=== PATIENT | male | born 1945 | race Caucasian/White ===

== ENCOUNTER → 2016-10-01 | Outpatient (CLI) | payer OTHER ==
[~2016-10-01] MED LIST: ALL300 PO; ASPI-232 PO; CARV12.52 PO; CARV25TA2 PO; DIPH-437 PO; FRS/40 PO; FURO-85 PO; LSN20 PO; MAGN400T6 PO; MULTTAB58 PO; SPIR25TA PO; TAMS0.4C38 PO; TERA5CAP PO; WARF-246 PO
[2016-10-01 14:50] VITALS: BP 154/84; PULSE 79; TEMP 36.8; O2SAT 97
--- NOTE | 2016-10-01 17:00 | Radiation Oncology Follow-Up ---
Radiation Oncology Follow-Up Date of Visit Oct 01, 2016. (Amanda Jacobs PA-C) Reason For Visit One-month follow-up and cancer survivorship care plan (Amanda Jacobs PA-C) Radiation Completion Date 09/02/16 - IMRT (Amanda Jacobs PA-C) Diagnosis (1) Prostate cancer Onset Date: 03/15/2013 Location: right lobe of the prostate Stage: ll Permanent Comment: STAGING: Prostate, adenocarcinoma, meenu 3 + 4, PSA 17.38 , cT2b, group IIB Prostate gland size - 40 cc (by [facility], Dr. Joyner) initially followed with active surveillance PSAD - 0.434 TREATMENT: 1. 6 months of hormonal suppression 2. Status post completion of IMRT/IGRT 09/02/2016 received 8100 cGy Last Edited By: Amanda Jacobs on Sep 13, 2016 15:55 (Amanda Jacobs PA-C) History of Present Illness Mr. Grant is a 70-year-old gentleman who was previously diagnosed with prostate cancer in 2012. He underwent a transrectal ultrasound-guided biopsy on 03/15/2013. Pathology revealed prostate adenocarcinoma that was Meenu 3+4 with no evidence of perineural invasion. 2 cores were positive in total. At that point, the patient had a PSA of 4.40 and that decision was for active surveillance. The patient continue to have a repeat PSAs drawn which have steadily risen to 6.64 (02/08/2014), 7.05 (03/23/2014), 9.89 (03/28/2015) and then 17.38 (03/28/2016). Dr. Joyner discuss treatment options and advise against surgery due to the patient's severe cardiac history and recommended consideration of radiation therapy. We are now seeing the patient in consultation discussed the role of radiation therapy. Overall, the patient is doing relatively well. He does have mild urinary obstructive symptoms and his IPSS score is 10/35. He denies any hematuria. He takes no medications for urinary flow symptoms. His EPIC QoL score is 20/60. He states he is basically impotent and has poor sexual function. He does not take any medications to attempt to improve his sexual function. He denies any history of TURP or rectal hemorrhoids. He denies any blood per rectum. Bone scan was obtained for staging purposes. There was no metastatic disease. Patient's ultimate decision was to go forward with external beam treatment. This was completed 09/02/2016. He received 8100 cGy. (Amanda Jacobs PA-C) Interim History He's been doing well over the past month. He gave an AUA score of 8. At the end of treatment his AUA score was 10. He completed expanded prostate cancer index composite for clinical practice and gave a score of one of 12 and urinary incontinence symptoms. He was score of 3 of 12 in urinary irritation symptoms. He gave a score of 0 12 in bowel symptoms. He was score of 9 of 12 sexual symptoms. He gave a score of 2 of 12 and hormonal vitality symptoms. His total was 15 of 60. (Amanda Jacobs PA-C) Allergies Coded Allergies: Sulfa Drugs (Unverified Allergy, Mild, DIARRHEA, 10/28/14) CALLIE Inhibitors (Verified Adverse Reaction, Unknown, COUGH, 10/28/14) Home Medications Scheduled Allopurinol (Allopurinol), 450 MG PO HS Aspirin (Aspir-81), 81 MG PO DAILY Carvedilol (Coreg), 12.5 MG PO QAM Carvedilol (Coreg), 25 MG PO HS Diphenhydramine-Acetaminophen (Tylenol Pm), 2 TAB PO HS Furosemide (Lasix), 1 TAB PO QAM Furosemide (Lasix), 40 MG PO HS Lisinopril (Lisinopril), 20 MG PO HS Magnesium Oxide (Mag-Ox), 400 MG PO HS Multiple Vitamin (Multivitamin), 1 TAB PO DAILY Spironolactone (Aldactone), 12.5 MG PO Q AM Tamsulosin Hcl (Flomax), 0.4 MG PO DAILY Terazosin (Hytrin), 5 MG PO HS Warfarin Sodium (Warfarin Sodium), 5 MG PO DAILY Review of Systems Gastrointestinal: Symptoms: WNL Oral: Symptoms: No Problems Respiratory: Symptoms: WNL Urinary: Symptoms: WNL, Burning, Nocturia Comments: Slight burning "once in a while", Nocturia x 2, See AUA & EPIC Skin: Symptoms: No Problems Additional Notes: He completed a distress management report and answered "no" to all questions. (Amanda Jacobs PA-C) Physical Exam Vital Signs Date Time Temp Pulse Resp B/P Pulse Ox O2 Delivery O2 Flow Rate FiO2 4/4/17 14:50 36.8 79 16 154/84 97 Fatigue: None General Appearance: no apparent distress Eyes: normal inspection, EOMI ENT: normal ENT inspection, hearing grossly normal Neck: no adenopathy, thyroid normal Respiratory/Chest: lungs clear, no respiratory distress, no accessory muscle use Cardiovascular: regular rate, rhythm, no gallop, no murmur Abdomen: non tender, soft Extremities: no pedal edema Neurologic/Psychiatric: no motor/sensory deficits, alert, normal mood/affect Skin: warm/dry Lymphatic: no adenopathy (Amanda Jacobs PA-C) Assessment & Plan Plan: Patient is also seen today by Dr. Henao. He'll be seeing Dr. Joyner on 10/17/2016. He'll likely have a PSA prior to that visit. If he does not he may call our office and we will order a PSA. We asked him to return to our office in 6 months. Today we completed a cancer survivorship care plan. A copy of the document was given to the patient. He was given a survivorship booklet. He may call our office if he has any questions or concerns. (Amanda Jacobs PA-C) I agree with note created by Amanda Jacobs PA-C. I reviewed the patient's chart and information with her. I have examined and evaluated the patient. I reviewed relevant clinical information and answered the patient's and/or family' s questions. (Veeral. Henao MD) Total Time In Follow-Up I spent 20 minutes speaking to the patient and performing examination. I spent 20 minutes reviewing information, preparing the survivorship document, and completing this note. (Aamnda Jacobs PA-C) I spent 15 minutes examining and counseling the patient. (Veeral. Henao MD) Copy To Betsy Henao M.D.; Filomena Joyner MD; Robert Patrick M.D.
== END | disposition home or self-care (01) ==
LOC: C.ONC 14:45
PROVIDERS: ATTEND Physician Assistant Medical
DX: Z08 Encounter for follow-up examination after completed treatment for malignant neoplasm (principal); Z92.3 Personal history of irradiation; Z85.46 Personal history of malignant neoplasm of prostate

== ENCOUNTER 2020-06-05 17:10 | Inpatient (IN) ==
[2020-06-05] MEDS ORDERED: SODIUM CHLORIDE 0.9% 500 ML IV SCH (17:30)
--- NOTE | 2020-06-05 17:33 | Emergency Department Note ---
Impression & Plan Tachycardia, Defibrillator discharge, Elevated troponin, Supratherapeutic INR ED Provider Note NAME: MANOHAR ECHEVARRIA AGE: 74 SEX: M : 1945 ARRIVES VIA: Walk-In INFORMANT: [Patient] ED PROVIDER(S): [Wilman Painting MD] CHIEF COMPLAINT: Defibrillator firing HISTORY OF PRESENT ILLNESS: The patient is a 74-year-old male who presents to the ER with 3 defibrillator firings in the last hour. The patient states that lately, he has felt weak and washed out but, today, he did not feel any different than yesterday. He was suddenly shocked without warning. There was no shortness of breath, no chest pain or tightness. He has been in baseline health. Patient was then shocked 2 more times, once in our ED waiting room. The patient states that he does take Coumadin. He takes amiodarone and metoprolol. He admits that he missed all of his medications yesterday morning. He did take his evening doses yesterday and his morning doses today. REVIEW OF SYSTEMS: See HPI for pertinent positives and negatives. A total of ten systems were reviewed and were otherwise negative. PMHx/PSHx: See Below SOCIAL HISTORY: See Below. PHYSICAL EXAM: GENERAL: Patient is in mild distress. HEENT: No acute trauma, normocephalic atraumatic, mucous membranes moist, no nasal congestion, no scleral icterus. NECK: No stridor, no adenopathy, no meningismus, trachea is midline. LUNGS: Clear to auscultation bilaterally, no wheeze, no rhonchi, breath sounds equal. HEART: Tachycardic and irregular. No murmurs heard. ABDOMEN: Soft, nontender, bowel sounds positive, no hernias, no peritonitis. EXTREMITIES: No cyanosis or edema, full range of motion of all the joints without pain or difficulty, no signs for acute trauma. NEUROLOGIC: Oriented x 3, no acute motor or sensory deficits, no focal weakness. SKIN: No rash, no jaundice, no diaphoresis. DIFFERENTIAL DIAGNOSIS: Cardiac ischemia, aortic dissection, pulmonary embolism, pneumothorax, A. fib or a flutter, SVT, medication noncompliance, V. tach, pneumonia, pericarditis, myocarditis, esophageal rupture, GERD, cholecystitis, pancreatitis, musculoskeletal, as well as other pathologies. EMERGENCY DEPARTMENT COURSE/PROCEDURES: ECG: Indication was defibrillator firing and tachycardia. The ECG shows what appears to be a rapid A. fib with a wide QRS. Some pacer spikes are seen. The rate is 147. 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 I have no old EKGs for comparison. QTc was 488. Repeat ECG: Indication was tachycardia. The ECG shows ventricular pacing. A [place] PVC was noted. The rate was 115. No PACs. The QTc was elevated at 628. Compared to today's earlier ECG, the rate was less, the pacemaker was now functioning on a regular basis. Continuous Cardiac Monitoring: An order was placed for continuous cardiac monitoring. The monitor shows a rate of 95 with a ventricular pacemaker. Critical Care Note: I have personally spent 41 minutes of critical care time in the direct management of this patient. This includes bedside care, interp retation of diagnostic studies, and testing, discussion with consultants, patient, and family members, and other required patient management activities. This 41 minutes is in excess of all separately billable procedures. MEDICAL DECISION MAKING: There is no leukocytosis. The patient does have a mild anemia with a hemoglobin of 11.5. There is a normal platelet count. INR is elevated and above the therapeutic window at 5.4. There is some renal insufficiency but this appears baseline looking back at previous testing. There are a few subtle liver enzyme elevations. The patient appears to be in a euthyroid state. Initial ECG showed a tachycardia which appeared to be wide complex and likely A. fib/a flutter. Repeat ECG once he was medicated showed a ventricular pacemaker with a rate of around 115. Cardiac enzyme testing x1 was slightly elevated, this could indicate cardiac strain/injury. Coronavirus testing was negative. Chest x-ray did not show pneumonia or CHF. I was called emergently to the room. Patient was rapidly assessed. Patient was given a 500 cc saline bolus. He received a dose of IV amiodarone, 150 mg. He was given IV metoprolol 5 mg. The pacer/defibrillator was interrogated. There were in fact 3 defibrillator firings. The firings were a result of his very rapid heart rate. I did consult cardiology. They agreed with the amiodarone and Lopressor use. The patient's heart rate is now in the 90s. His pacemaker is functioning normally. I suspect he has missed some medications over the last few days, this has led to an uncontrolled heart rate and as a result, his defibrillator discharge. Patient is aware of the need for hospitalization. He understands the results of his testing. I did speak with case management, the on-call hospitalist was consulted. Past Med/Surg History Medical History Cardiomyopathy Pacemaker Social History Smoking Status: Never smoker Preferred Language: Burmese Feels Safe at Home: Yes Allergies Allergies Allergy/AdvReac Type Severity Reaction Status Date / Time Sulfa (Sulfonamide AdvReac Mild DIARRHEA Verified 06/05/20 21:02 Antibiotics) CALLIE Inhibitors AdvReac Unknown COUGH Verified 01/13/18 07:55 Home Meds Home Medications Medication Instructions Recorded Confirmed allopurinol 100 mg PO DAILY 06/05/20 06/05/20 amiodarone 200 mg PO BID 06/05/20 06/05/20 aspirin [Aspir-Low] 81 mg PO DAILY 06/05/20 06/05/20 atorvastatin 40 mg PO DAILY 06/05/20 06/05/20 fluticasone propionate 2 spray INTRANASAL DAILY 06/05/20 06/05/20 furosemide 40 mg PO BID 06/05/20 06/05/20 levothyroxine 25 mcg PO QAM 06/05/20 06/05/20 lisinopril 10 mg PO DAILY 06/05/20 06/05/20 magnesium oxide 400 mg PO Q2D 06/05/20 06/05/20 metoprolol succinate 50 mg PO BID 06/05/20 06/05/20 multivitamin [Multiple Vitamin] 1 tab PO DAILY 06/05/20 06/05/20 spironolactone 12.5 mg PO QAM 06/05/20 06/05/20 terazosin 5 mg PO HS 06/05/20 06/05/20 warfarin 0 mg PO DAILY 06/05/20 06/05/20 Results & Data (ED) Vital Signs Vital Signs - 24 hr 06/05/20 17:14 06/05/20 17:40 06/05/20 17:46 Temperature 37 C Temperature Source Temporal Artery Scan Pulse Rate 86 115 H Respiratory Rate 18 22 Respiratory Effort / Characteristics Non-Labored Respiratory Depth Normal Blood Pressure 108/78 161/96 H Blood Pressure Mean 88 110 Pulse Oximetry 96 96 97 Oxygen Delivery Method Room Air Room Air Sepsis Recent Fever Within 48 Hours No Sepsis New/Unexplained Change in Mental Status No Sepsis Action Taken by Nursing No Action Required 06/05/20 18:00 06/05/20 18:08 06/05/20 18:15 Temperature Temperature Source Pulse Rate 108 H 117 H 125 H Respiratory Rate 20 19 17 Respiratory Effort / Characteristics Respiratory Depth Blood Pressure 141/88 H 144/82 H 125/84 Blood Pressure Mean 105 87 92 Pulse Oximetry 96 96 95 Oxygen Delivery Method Sepsis Recent Fever Within 48 Hours Sepsis New/Unexplained Change in Mental Status Sepsis Action Taken by Nursing 06/05/20 18:26 06/05/20 18:42 Temperature Temperature Source Pulse Rate 114 H 96 H Respiratory Rate 18 Respiratory Effort / Characteristics Respiratory Depth Blood Pressure 125/84 129/86 Blood Pressure Mean 101 Pulse Oximetry 96 Oxygen Delivery Method Sepsis Recent Fever Within 48 Hours Sepsis New/Unexplained Change in Mental Status Sepsis Action Taken by [facility]dc Medications Current Medication List: was personally reviewed by me Laboratory Data Attestation: I reviewed the patient's lab results. Result diagrams: 06/05/20 17:31 06/05/20 17:31 Lab Results 06/05/20 06/05/20 06/05/20 Range/Units 17:31 17:31 17:31 WBC 8.78 (4.8-10.8) K/uL RBC 3.65 L (4.7-6.1) M/uL Hgb 11.5 L (14.0-18.0) g/dL Hct 34.6 L (42-52) % MCV 94.8 (80-100) fL MCH 31.5 (25-34) pg MCHC 33.2 (32-36) g/dL RDW Std Deviation 48.4 H (36.4-46.3) fL RDW Coeff of Santosh 14.0 (11.5-14.5) % Plt Count 155 (130-400) K/uL MPV 11.8 H (7.4-10.4) fL Immature Gran % (Auto) 0.3 % Neut % (Auto) 44.8 % Lymph % (Auto) 46.6 % Brown % (Auto) 7.2 % Eos % (Auto) 0.0 % Baso % (Auto) 1.1 % Neut # (Auto) 3.93 (1.4-6.5) K/uL Lymph # (Auto) 4.09 H (1.2-3.4) K/uL Brown # (Auto) 0.63 H (0.11-0.59) K/uL Eos # (Auto) 0.00 (0-0.5) K/uL Baso # (Auto) 0.10 (0-0.2) K/uL Immature Gran # (Auto) 0.03 H (0.00-0.02) K/uL PT 51.7 H (9.0-12.0) Seconds INR 5.4 H (0.9-1.1) APTT 45.7 H* (21.0-31.0) Seconds PTT Ratio 1.6 Sodium 136 (136-145) mmol/L Potassium 3.5 (3.5-5.1) mmol/L Chloride 105 (98-107) mmol/L Carbon Dioxide 24 (21-32) mmol/L Anion Gap 7.0 (3-11) BUN 37 H (7-18) mg/dl Creatinine 2.55 H (0.6-1.4) mg/dl Est Cr Clr Drug Dosing Not Reportable Est GFR ( Amer) 27.4 Est GFR (Non-Af Amer) 23.6 BUN/Creatinine Ratio 14.5 (10-20) Glucose 133 H (70-99) mg/dl Calcium 8.3 L (8.5-10.1) mg/dl Magnesium 2.7 H (1.8-2.4) mg/dl Total Bilirubin 0.5 (0.2-1) mg/dl AST 57 H (15-37) U/L ALT 91 H (12-78) U/L Alkaline Phosphatase 90 (45-117) U/L Troponin I 0.061 H* (0-0.045) ng/ml Total Protein 7.1 (6.4-8.2) gm/dl Albumin 3.4 (3.4-5.0) gm/dl Globulin 3.7 (2.5-4.0) gm/dl Albumin/Globulin Ratio 0.9 (0.9-2) TSH 2.980 (0.300-4.500) uIu/ml SARS-CoV-2 Ag (Rapid) (Negative) 06/05/20 Range/Units 19:20 WBC (4.8-10.8) K/uL RBC (4.7-6.1) M/uL Hgb (14.0-18.0) g/dL Hct (42-52) % MCV (80-100) fL MCH (25-34) pg MCHC (32-36) g/dL RDW Std Deviation (36.4-46.3) fL RDW Coeff of Santosh (11.5-14.5) % Plt Count (130-400) K/uL MPV (7.4-10.4) fL Immature Gran % (Auto) % Neut % (Auto) % Lymph % (Auto) % Brown % (Auto) % Eos % (Auto) % Baso % (Auto) % Neut # (Auto) (1.4-6.5) K/uL Lymph # (Auto) (1.2-3.4) K/uL Brown # (Auto) (0.11-0.59) K/uL Eos # (Auto) (0-0.5) K/uL Baso # (Auto) (0-0.2) K/uL Immature Gran # (Auto) (0.00-0.02) K/uL PT (9.0-12.0) Seconds INR (0.9-1.1) APTT (21.0-31.0) Seconds PTT Ratio Sodium (136-145) mmol/L Potassium (3.5-5.1) mmol/L Chloride (98-107) mmol/L Carbon Dioxide (21-32) mmol/L Anion Gap (3-11) BUN (7-18) mg/dl Creatinine (0.6-1.4) mg/dl Est Cr Clr Drug Dosing Est GFR ( Amer) Est GFR (Non-Af Amer) BUN/Creatinine Ratio (10-20) Glucose (70-99) mg/dl Calcium (8.5-10.1) mg/dl Magnesium (1.8-2.4) mg/dl Total Bilirubin (0.2-1) mg/dl AST (15-37) U/L ALT (12-78) U/L Alkaline Phosphatase (45-117) U/L Troponin I (0-0.045) ng/ml Total Protein (6.4-8.2) gm/dl Albumin (3.4-5.0) gm/dl Globulin (2.5-4.0) gm/dl Albumin/Globulin Ratio (0.9-2) TSH (0.300-4.500) uIu/ml SARS-CoV-2 Ag (Rapid) Negative (Negative) Administered Medications Discontinued Medications Sodium Chloride (Nss) 500 mls @ 999 mls/hr IV .Q31M KIAN Stop: 06/05/20 18:00 Last Infusion: 06/05/20 18:04 Dose: 0 mls/hr Documented by: [id number] Admin: 06/05/20 17:33 Dose: 999 mls/hr Documented by: [id number] Amiodarone HCl/Dextrose (Nexterone / D5w) 150 mg in 100 mls @ 600 mls/hr IV NOW STA Stop: 06/05/20 17:46 Last Infusion: 06/05/20 17:54 Dose: 0 mls/hr Documented by: [id number] Cosigned by: [id number] Admin: 06/05/20 17:44 Dose: 600 mls/hr Documented by: [id number] Cosigned by: [id number] Calcium Gluconate () 1,000 mg in 60 mls @ 240 mls/hr IV ONE STA Stop: 06/05/20 19:48 Last Infusion: 06/05/20 20:48 Dose: 0 mls/hr Documented by: [id number] Admin: 06/05/20 20:32 Dose: 240 mls/hr Documented by: [id number] Metoprolol Succinate (Metoprolol Succ 50mg Ext Rel Tab) 50 mg PO NOW STA Stop: 06/05/20 20:23 Last Admin: 06/05/20 20:59 Dose: 50 mg Documented by: [id number] Metoprolol Tartrate (Metoprolol Tartrate 1 Mg/Ml Vial) 5 mg IV NOW STA Stop: 06/05/20 18:21 Last Admin: 06/05/20 18:26 Dose: 5 mg Documented by: [id number] Potassium Chloride (Potassium Chloride 10 Meq Tabcr) 50 meq PO NOW STA Stop: 06/05/20 19:31 Last Admin: 06/05/20 20:32 Dose: 50 meq Documented by: [id number] Imaging Data Radiologist's Impression: XR chest 1V portable HISTORY: weakness COMPARISON: None. FINDINGS: The lungs are clear. The cardiac silhouette is top normal in size. No pleural effusions. No pneumothorax. Left-sided pacemaker/defibrillator is noted. IMPRESSION: No acute process. Discharge Plan Visit Data Chief Complaint: Cardiac Assessment Stated Complaint: PACE MAKER SHOCKED HIM ED Provider: Wilman Painting Discharge Problem: Tachycardia, Defibrillator discharge, Elevated troponin, Supratherapeutic INR Patient Disposition: Admitted As Inpatient Condition: Good Forms Stand Alone Forms: [facility], Virtual Emergency Department, Important Visit Information Prescriptions Prescriptions: No Action warfarin 5 mg tablet 0 mg PO DAILY RF: 0 levothyroxine 25 mcg tablet 25 mcg PO QAM RF: 0 amiodarone 200 mg tablet 200 mg PO BID RF: 0 terazosin 5 mg capsule 5 mg PO HS RF: 0 furosemide 40 mg tablet 40 mg PO BID RF: 0 lisinopril 10 mg tablet 10 mg PO DAILY RF: 0 magnesium oxide 400 mg (241.3 mg magnesium) tablet 400 mg PO Q2D RF: 0 allopurinol 100 mg tablet 100 mg PO DAILY RF: 0 spironolactone 25 mg tablet 12.5 mg PO QAM RF: 0 aspirin [Aspir-Low] 81 mg Tablet,Delayed Release (Dr/Ec) 81 mg PO DAILY RF: 0 multivitamin [Multiple Vitamin] Tablet 1 tab PO DAILY RF: 0 atorvastatin 40 mg tablet 40 mg PO DAILY RF: 0 metoprolol succinate 50 mg tablet extended release 24 hr 50 mg PO BID RF: 0 fluticasone propionate 50 mcg/actuation [place],Suspension 2 spray INTRANASAL DAILY RF: 0 Referrals Referrals: Ioana Son DO [Primary Care Provider] -
[2020-06-05] MEDS ORDERED: 0.2 MICRON FILTER SET 1 EA IV ONE (17:37)
[2020-06-05] MEDS ORDERED: AMIODARONE / D5W 150 MG/100 ML BAG IV STA (17:37)
--- NOTE | 2020-06-05 17:57 | XRay Report ---
XR chest 1V portable HISTORY: weakness COMPARISON: None. FINDINGS: The lungs are clear. The cardiac silhouette is top normal in size. No pleural effusions. No pneumothorax. Left-sided pacemaker/defibrillator is noted. IMPRESSION: No acute process. ACT 112: Negative or not required by law. Electronically signed by: Ignacio Alonzo M.D. 06/05/2020 5:55 PM
[2020-06-05] MEDS ORDERED: METOPROLOL TARTRATE 1 MG/ML VIAL IV STA (18:20)
[2020-06-05 18:26] LABS: Basophils % (auto) 1.1 %; Hematocrit (blood only) 34.6 % (42-52); Hemoglobin 11.5 g/dL (14.0-18.0); Immature Granulocytes # (auto) 0.03 K/uL (0.00-0.02); Immature Granulocytes % (auto) 0.3 %; Lymphocytes # (auto) 4.09 K/uL (1.2-3.4); Lymphocytes % (auto) 46.6 %; Mean Corpuscular Hemoglobin 31.5 pg (25-34); Mean Corpuscular Hgb Conc 33.2 g/dL (32-36); Mean Corpuscular Volume 94.8 fL (80-100); Mean Platelet Volume 11.8 fL (7.4-10.4); Monocytes # (auto) 0.63 K/uL (0.11-0.59); Monocytes % (auto) 7.2 %; Neutrophils # (auto) 3.93 K/uL (1.4-6.5); Neutrophils % (auto) 44.8 %; Platelet Count 155 K/uL (130-400); RDW Standard Deviation 48.4 fL (36.4-46.3); Red Blood Count 3.65 M/uL (4.7-6.1); White Blood Count 8.78 K/uL (4.8-10.8)
[2020-06-05 18:47] LABS: INR 5.4 (0.9-1.1); Partial Thromboplastin Ratio 1.6; Prothrombin Time 51.7 Seconds (9.0-12.0)
[2020-06-05 18:50] LABS: Alanine Aminotransferase 91 U/L (12-78); Albumin Level 3.4 gm/dl (3.4-5.0); Aspartate Aminotransferase 57 U/L (15-37); BUN Creatinine Ratio 14.5 (10-20); Blood Urea Nitrogen 37 mg/dl (7-18); Calcium 8.3 mg/dl (8.5-10.1); Carbon Dioxide 24 mmol/L (21-32); Chloride 105 mmol/L (98-107); Est GFR (African American) 27.4; Est GFR (Non-African American) 23.6; Glucose 133 mg/dl (70-99); Magnesium 2.7 mg/dl (1.8-2.4); Potassium 3.5 mmol/L (3.5-5.1); Sodium 136 mmol/L (136-145)
[2020-06-05 18:59] LABS: Partial Thromboplastin Time 45.7 Seconds (21.0-31.0)
[2020-06-05 19:19] LABS: Albumin Globulin Ratio 0.9 (0.9-2); Alkaline Phosphatase 90 U/L (45-117); Bilirubin,Total 0.5 mg/dl (0.2-1); Globulin 3.7 gm/dl (2.5-4.0); Total Protein 7.1 gm/dl (6.4-8.2); Troponin I 0.061 ng/ml (0-0.045)
[2020-06-05] MEDS ORDERED: POTASSIUM CHLORIDE 10 MEQ TABCR PO STA (19:30)
[2020-06-05] MEDS ORDERED: CALCIUM GLUCONATE 10% 1,000 MG in SODIUM CHLORIDE 0.9% 50 ML IV STA (19:30)
[2020-06-05] MEDS ORDERED: CALCIUM GLUCONATE 1,000 MG/60 ML BAG IV STA (19:34)
[2020-06-05] MEDS ORDERED: METOPROLOL SUCC 50MG EXT REL TAB PO STA (20:22)
--- NOTE | 2020-06-05 21:05 | History & Physical Report ---
Date of Service June 05, 2020 Assessment & Plan (1) Defibrillator discharge: Secondary to tachyarrhythmia Multifactorial : missed cardiac medication doses ARF on CKD secondary to clinical dehydration secondary to viral illness chronic systolic heart failure secondary to non-ischemic cardiomyopathy (EF 45 to 50%, TTE 2019), patient on the dry side hx nonocclusive CAD hx PAF on Coumadin, patient NSR, INR supratherapeutic history of VT chronic anemia, hemoglobin at baseline prostate cancer status post radiation/hormonal therapy prediabetes (hemoglobin A1c of 6.01 December 2019) PCU Follow ICD interrogation Facilitate cardiac medications Monitor creatinine response to IVF, hold home diuretics for now until patient euvolemic Cardiology consult Re: ICD firing (ER provider already in touch with Dr. Zambrano.) DVT prophylaxis. Coumadin INR goal between 2 and 3 Full code Text document was generated using [employer] voice recognition software. It may contain grammatical or spelling errors. Kindly contact undersigned for clarification of any documentation item in question. History of Present Illness Chief Complaint: ICD shock Primary Care Provider: Ioana Son DO History obtained from patient and records. Medical history significant for chronic systolic heart failure secondary to non- ischemic cardiomyopathy (EF 45 to 50%, TTE 2019), nonocclusive CAD, moderate mitral regurgitation, history PAF on Coumadin, history of VT, CRI (baseline creatinine 2.2), chronic anemia (baseline hemoglobin 11), prostate cancer status post radiation/hormonal therapy, prediabetes. Last confinement 2009 under Cardiology service for dilated cardiomyopathy status post cardiac catheterization. Patient not feeling well the last few days. Feeling weak and washed out. No known recent COVID-19 contacts. No chest pain, no S OB, no cough symptoms. Appetite fair. Admits to missing some of his pills. Achy posterior headache symptoms. Patient was on the commode today when he fell his ICD fire. Patient brought to the ER for evaluation. IV amiodarone administered at the ER for tachyarrhythmia. Medical History as above Surgical History : ICD placement, prostate biopsy, tonsillectomy/adenoidectomy Family History : Heart disease, brain cancer, Personal/Social history : Non-smoker, no EtOH intake, retired from [employer] work Allergies Allergy/AdvReac Type Severity Reaction Status Date / Time Sulfa (Sulfonamide AdvReac Mild DIARRHEA Verified 06/05/20 21:02 Antibiotics) CALLIE Inhibitors AdvReac Unknown COUGH Verified 01/13/18 07:55 Home Medications Medication Instructions Recorded Confirmed Type allopurinol 100 mg PO DAILY 06/05/20 06/05/20 History amiodarone 200 mg PO BID 06/05/20 06/05/20 History aspirin [Aspir-Low] 81 mg PO DAILY 06/05/20 06/05/20 History atorvastatin 40 mg PO DAILY 06/05/20 06/05/20 History fluticasone propionate 2 spray INTRANASAL DAILY 06/05/20 06/05/20 History furosemide 40 mg PO BID 06/05/20 06/05/20 History levothyroxine 25 mcg PO QAM 06/05/20 06/05/20 History lisinopril 10 mg PO DAILY 06/05/20 06/05/20 History magnesium oxide 400 mg PO Q2D 06/05/20 06/05/20 History metoprolol succinate 50 mg PO BID 06/05/20 06/05/20 History multivitamin [Multiple Vitamin] 1 tab PO DAILY 06/05/20 06/05/20 History spironolactone 12.5 mg PO QAM 06/05/20 06/05/20 History terazosin 5 mg PO HS 06/05/20 06/05/20 History warfarin 0 mg PO DAILY 06/05/20 06/05/20 History Past Med/Surg History Medical History Cardiomyopathy Pacemaker Social History Smoking Status: Never smoker Second Hand Exposure: No; Do You Dip or Chew Tobacco: No; Tobacco Cessation Education Requested by Patient: No Hx Alcohol Use: Yes Alcohol type: beer Preferred Language: Slovenian Communication Ability: Effective Broadcast Maintenance Engineer Required: No Beliefs That Will Affect Care: None Current Living Situation: Alone Other Information That Helps Us Care for You: No Feels Safe at Home: Yes Safety Concerns: Feels Safe At This Time Assistive Devices: None Review of Systems Review of Systems: As per HPI, all 10 systems reviewed, all other ROS negative Physical Exam Physical Exam: GENERAL: Comfortable, morbidly obese, pleasant, no respiratory distress SKIN: Pallor , warm HEENT: Alopecia, bespectacled, Mellen palpebral conjunctivae, no ptosis, dry buccal mucosa NECK : Supple, short neck, no tenderness CHEST : CTA, no tenderness HEART : RRR, systolic murmur best heard on left sternal border ABDOMEN: Some distention, nontender EXTREMITIES : Minimal LE swelling, no LE tenderness, no other conspicuous deformities noted NEUROLOGIC : Coherent, no facial asymmetry, no other gross focality Results & Data Results & Data ([facility]) Vital Signs (Past 12 Hours) Vital Signs Temp Pulse Resp BP Pulse Ox 06/05/20 18:42 96 H 18 129/86 96 06/05/20 18:26 114 H 125/84 06/05/20 18:15 125 H 17 125/84 95 06/05/20 18:08 117 H 19 144/82 H 96 06/05/20 18:00 108 H 20 141/88 H 96 06/05/20 17:46 115 H 22 161/96 H 97 06/05/20 17:40 96 06/05/20 17:14 37 C 86 18 108/78 96 Laboratory Results Laboratory Results WBC 8.78 K/uL (4.8-10.8) 06/05/20 17:31 RBC 3.65 M/uL (4.7-6.1) L 06/05/20 17:31 Hgb 11.5 g/dL (14.0-18.0) L 06/05/20 17:31 Hct 34.6 % (42-52) L 06/05/20 17:31 MCV 94.8 fL (80-100) 06/05/20 17:31 MCH 31.5 pg (25-34) 06/05/20 17:31 MCHC 33.2 g/dL (32-36) 06/05/20 17:31 RDW Std Deviation 48.4 fL (36.4-46.3) H 06/05/20 17:31 RDW Coeff of Santosh 14.0 % (11.5-14.5) 06/05/20 17:31 Plt Count 155 K/uL (130-400) 06/05/20 17:31 MPV 11.8 fL (7.4-10.4) H 06/05/20 17:31 Immature Gran % (Auto) 0.3 % 06/05/20 17:31 Neut % (Auto) 44.8 % 06/05/20 17:31 Lymph % (Auto) 46.6 % 06/05/20 17:31 [place] % (Auto) 7.2 % 06/05/20 17:31 Eos % (Auto) 0.0 % 06/05/20 17:31 Baso % (Auto) 1.1 % 06/05/20 17:31 Neut # (Auto) 3.93 K/uL (1.4-6.5) 06/05/20 17:31 Lymph # (Auto) 4.09 K/uL (1.2-3.4) H 06/05/20 17:31 [place] # (Auto) 0.63 K/uL (0.11-0.59) H 06/05/20 17:31 Eos # (Auto) 0.00 K/uL (0-0.5) 06/05/20 17:31 Baso # (Auto) 0.10 K/uL (0-0.2) 06/05/20 17: Immature Gran # (Auto) 0.03 K/uL (0.00-0.02) H 06/05/20 17:31 PT 51.7 Seconds (9.0-12.0) H 06/05/20 17:31 INR 5.4 (0.9-1.1) H 06/05/20 17:31 APTT 45.7 Seconds (21.0-31.0) H* 06/05/20 17:31 PTT Ratio 1.6 06/05/20 17:31 Sodium 136 mmol/L (136-145) 06/05/20 17:31 Potassium 3.5 mmol/L (3.5-5.1) 06/05/20 17:31 Chloride 105 mmol/L (98-107) 06/05/20 17:31 Carbon Dioxide 24 mmol/L (21-32) 06/05/20 17:31 Anion Gap 7.0 (3-11) 06/05/20 17:31 BUN 37 mg/dl (7-18) H 06/05/20 17:31 Creatinine 2.55 mg/dl (0.6-1.4) H 06/05/20 17:31 Est Cr Clr Drug Dosing Not Reportable 06/05/20 17:31 Est GFR ( Amer) 27.4 06/05/20 17:31 Est GFR (Non-Af Amer) 23.6 06/05/20 17:31 BUN/Creatinine Ratio 14.5 (10-20) 06/05/20 17:31 Glucose 133 mg/dl (70-99) H 06/05/20 17:31 Calcium 8.3 mg/dl (8.5-10.1) L 06/05/20 17:31 Magnesium 2.7 mg/dl (1.8-2.4) H 06/05/20 17:31 Total Bilirubin 0.5 mg/dl (0.2-1) 06/05/20 17:31 AST 57 U/L (15-37) H 06/05/20 17:31 ALT 91 U/L (12-78) H 06/05/20 17:31 Alkaline Phosphatase 90 U/L (45-117) 06/05/20 17:31 Troponin I 0.061 ng/ml (0-0.045) H* 06/05/20 17:31 Total Protein 7.1 gm/dl (6.4-8.2) 06/05/20 17:31 Albumin 3.4 gm/dl (3.4-5.0) 06/05/20 17:31 Globulin 3.7 gm/dl (2.5-4.0) 06/05/20 17:31 Albumin/Globulin Ratio 0.9 (0.9-2) 06/05/20 17:31 TSH 2.980 uIu/ml (0.300-4.500) 06/05/20 17:31 SARS-CoV-2 Ag (Rapid) Negative (Negative) 06/05/20 19:20 Diagnostic Findings Chest x-ray : No acute process CT head: No acute intracranial abnormality. Atrophy and microvascular ischemic changes. EKG as per my interpretation : Rate 115, paced rhythm
--- NOTE | 2020-06-05 21:08 | CT Scan Report ---
HEAD CT NONCONTRAST CT DOSE: 537.48 mGy.cm HISTORY: Headache. TECHNIQUE: Multiaxial CT images of the head were performed without the use of intravenous contrast. A utomated exposure control was utilized for this study. A dose lowering technique was utilized adheri ng to the principles of ALARA. Comparison: None. Findings: The paranasal sinuses and mastoid air cells are clear. The calvarium and skull base are int act. There is no mass, hematoma, midline shift, acute infarct. White matter hypodensity is nonspecifi c but suggestive of microvascular ischemic change. The ventricles and sulci demonstrate mild age-rela anup involutional changes. A 1.5 cm subcutaneous cystic focus within the midline of the posterior neck . This is nonspecific but favors a sebaceous cyst. Impression: No acute intracranial abnormality. Atrophy and microvascular ischemic changes. ACT 112: Negative or not required by law. Electronically signed by: Ignacio Alonzo M.D. 06/05/2020 9:06 PM
[2020-06-05] MEDS ORDERED: traMADol HCL 50 MG TABLET PO PRN (22:33)
[2020-06-05] MEDS ORDERED: ACETAMINOPHEN 325 MG TAB PO PRN (22:33)
[2020-06-05] MEDS ORDERED: PROMETHAZINE HCL 12.5 MG in SODIUM CHLORIDE 0.9% 50 ML IV PRN (22:33)
[2020-06-05] MEDS ORDERED: NITROGLYCERIN SL 0.4 MG/TAB TAB SL PRN (22:33)
[2020-06-05] MEDS ORDERED: POTASSIUM CHLORIDE 40 MEQ in SODIUM CHLORIDE 0.9% 1000ML 1,000 ML IV ONE (22:45)
[2020-06-05] MEDS: TERAZOSIN HCL 5 MG CAP PO SCH (22:54)
[2020-06-05] MEDS: AMIODARONE 200 MG TAB PO SCH (22:54)
[2020-06-06 04:29] LABS: Appearance Urine Clear (Clear); Bacteria Urine Automated Negative (Negative); Bilirubin Urine Negative (Negative); Blood Urine Negative (Negative); Color Urine Dark Yellow; Glucose Urine UA Negative (Negative); Ketones Urine Trace (Negative); Leukocyte Esterase Urine Negative (Negative); Nitrite Urine Negative (Negative); Protein Urine Trace (Negative); RBC Urine Automated 0-4 /hpf (0-4); Specific Gravity Urine 1.025 (1.000-1.030); Urobilinogen Urine Negative (Negative)
[2020-06-06 05:39] LABS: Hematocrit (blood only) 30.1 % (42-52); Hemoglobin 10.1 g/dL (14.0-18.0); Mean Corpuscular Hemoglobin 31.6 pg (25-34); Mean Corpuscular Hgb Conc 33.6 g/dL (32-36); Mean Corpuscular Volume 94.1 fL (80-100); Mean Platelet Volume 11.1 fL (7.4-10.4); Platelet Count 136 K/uL (130-400); RDW Coefficient of Variation 14.1 % (11.5-14.5); RDW Standard Deviation 48.7 fL (36.4-46.3); White Blood Count 5.74 K/uL (4.8-10.8)
[2020-06-06 06:04] LABS: INR 3.6 (0.9-1.1)
[2020-06-06 06:22] LABS: Creatinine Clr Calc Pharmacy 40.4 ml/min; Est GFR (African American) 35.9; Magnesium 2.5 mg/dl (1.8-2.4); Potassium 4.4 mmol/L (3.5-5.1)
[2020-06-06] MEDS: LEVOTHYROXINE SODIUM 25 MCG TABLET PO SCH (06:36)
[2020-06-06 06:47] LABS: ALC (manual) 3.08 K/uL (1.2-3.4); ANC (manual) 2.46 K/uL (1.4-6.5); Basophils # (manual) 0.05 K/uL (0-0.2); Basophils % (manual) 0.9 %; Eosinophils # (manual) 0.05 K/uL (0-0.5); Eosinophils % (manual) 0.9 %; Lymphocytes # (manual) 1.28 K/uL (1.2-3.4); Lymphocytes % (manual) 22.3 %; Monocytes % (manual) 1.8 %; Neutrophils # (manual) 2.46 K/uL (1.4-6.5); Neutrophils % (manual) 42.8 %; Reactive Lymphocytes % (manual) 31.3 %
[2020-06-06] MEDS: AMIODARONE 200 MG TAB PO SCH ×2 (08:55→20:39)
[2020-06-06] MEDS: FLUTICASONE PROPIONATE NA SPR 16 GM BTL SCH (08:55)
[2020-06-06] MEDS: allopurinoL 100 MG TAB PO SCH (08:56)
[2020-06-06] MEDS: METOPROLOL SUCC 50MG EXT REL TAB PO SCH ×2 (08:56→20:39)
[2020-06-06] MEDS: ASPIRIN 81 MG ECTAB PO SCH (08:56)
[2020-06-06] MEDS: ATORVASTATIN 40 MG TAB PO SCH (08:56)
[2020-06-06] MEDS: MULTIVITAMIN TAB PO SCH (08:56)
--- NOTE | 2020-06-06 10:25 | Cardiology Consultation ---
Date of Consultation June 06, 2020 Assessment & Plan (1) Ventricular tachycardia: (2) Hypokalemia: (3) Noncompliance w/medication treatment due to intermit use of medication: (4) Supratherapeutic INR: (5) PAF (paroxysmal atrial fibrillation): (6) NICM (nonischemic cardiomyopathy): Device interrogation revealed 98% biventricular pacing, 3 antitachycardic therapy was delivered on the seventh. 2 were in the ventricular tachycardia range and one in the ventricular fibrillation range. Event likely secondary to medication noncompliance the need for which was stressed to the patient today. Longstanding history of nonischemic cardiomyopathy. Do not believe ischemic evaluation is warranted at this time given his otherwise lack of symptoms and recent nonischemic Lexiscan nuclear stress test from January 2020. We will repeat an echocardiogram to evaluate for any structural changes or further drop of his LV systolic function which will help tailor medical regimen. Has been transitioned back to oral outpatient medical regimen and will be continued. We will attempt to increase beta-maxwell dose as his blood pressure tolerates. Continue to monitor on telemetry overnight. Follow and replete electrolytes as necessary. Will require close follow-up as an outpatient with the [facility] clinic and in the cardiology clinic. History of Present Illness Reason for Consultation: ICD firing x3 Requesting Physician: Dr. Vasques Attending Physician: Smooth Ragsdale MD History of Present Illness Mr. Avalos is a very pleasant 74-year-old gentleman who normally follows with Lauro Thompson of our cardiology practice. He presented to [facility] emergency department on 06/05/2020 with complaints of ICD firing. Patient states he has been having some difficulties with nausea lately and admits that he has been having issues keeping up with his medications. He is not sure if he has been taking his amiodarone or metoprolol for about a week now. Yesterday he was sitting on the commode when he suddenly received a shock from his ICD. He denied any complaints prior to the shock or after. Specifically denied any chest pain, shortness of breath, palpitations, lightheadedness, dizziness or syncope. He called his sister to notify her of the event and received a second shot. Was brought into the emergency department and received a third shock while being triaged. Upon arrival he was found to be ventricularly paced and slightly hypokalemic. He was bolused with IV amiodarone overnight without any further ventricular events. Cardiac Problems: NICM s/p BiV ICD 11/04/2010 with generator change 2015 VT associated with syncope broke before therapy 12/22/2019 started on amiodarone pAF on metoprolol and coumadin [id number] (HTN, CHF, age) Chronic heart failure with reduced EF, NYHA Class III HLD Hypothyroidism Allergies Allergy/AdvReac Type Severity Reaction Status Date / Time Sulfa (Sulfonamide AdvReac Mild DIARRHEA Verified 06/05/20 21:02 Antibiotics) CALLIE Inhibitors AdvReac Unknown COUGH Verified 01/13/18 07:55 Home Medications Medication Instructions Recorded Confirmed Type allopurinol 100 mg PO DAILY 06/05/20 06/05/20 History amiodarone 200 mg PO BID 06/05/20 06/05/20 History aspirin [Aspir-Low] 81 mg PO DAILY 06/05/20 06/05/20 History atorvastatin 40 mg PO DAILY 06/05/20 06/05/20 History fluticasone propionate 2 spray INTRANASAL DAILY 06/05/20 06/05/20 History furosemide 40 mg PO BID 06/05/20 06/05/20 History levothyroxine 25 mcg PO QAM 06/05/20 06/05/20 History lisinopril 10 mg PO DAILY 06/05/20 06/05/20 History magnesium oxide 400 mg PO Q2D 06/05/20 06/05/20 History metoprolol succinate 50 mg PO BID 06/05/20 06/05/20 History multivitamin [Multiple Vitamin] 1 tab PO DAILY 06/05/20 06/05/20 History spironolactone 12.5 mg PO QAM 06/05/20 06/05/20 History terazosin 5 mg PO HS 06/05/20 06/05/20 History warfarin 0 mg PO DAILY 06/05/20 06/05/20 History Patient History Medical History Cardiomyopathy Pacemaker Social History Smoking Status: Never smoker Second Hand Exposure: No; Do You Dip or Chew Tobacco: No; Tobacco Cessation Education Requested by Patient: No Hx Alcohol Use: Yes Alcohol type: beer Preferred Language: Jordanian Communication Ability: Effective Winder Tender Required: No Beliefs That Will Affect Care: None Current Living Situation: Alone Other Information That Helps Us Care for You: No Feels Safe at Home: Yes Safety Concerns: Feels Safe At This Time Assistive Devices: None Review of Systems Review of Systems: All systems reviewed & are unremarkable except as noted in HPI & below Physical Exam Physical Exam: General: Awake, alert and oriented x 3. No acute distress. HEENT: Normocephalic, atraumatic. Pupils equal, round and reactive to light and accommodation. Extraocular muscles are intact. Anicteric sclera. Moist mucous membranes. Neck: No JVD. No bruit. Cardiovascular: Regular. Positive S-4. Normal S-1 and S-2. No S-3. 3/6 holosystolic ejection murmur, left sternal border, mid-clavicular line with radiation to the axilla. No rubs. Pulmonary: Clear to auscultation bilaterally. No rales, rhonchi, or wheezing. Abdomen: Bowel sounds x 4, soft. No rebound, guarding or tenderness. No organomegaly. Extremities: No clubbing, cyanosis or edema. +2 pedal pulses bilaterally. Skin: Warm and dry. Results & Data ([facility]) Vital Signs (Past 12 Hours) Vital Signs Temp Pulse Pulse Resp BP BP Pulse Ox 06/06/20 07:50 37.8 C H 61 16 101/50 L 94 06/06/20 07:15 61 06/06/20 04:02 37.6 C H 64 19 97/54 L 96 06/05/20 23:00 36.8 C 92 H 20 127/90 94 06/05/20 22:30 92 H Laboratory Results Laboratory Results - last 24 hr 06/05/20 06/05/20 06/05/20 17:31 17:31 17:31 WBC 8.78 RBC 3.65 L Hgb 11.5 L Hct 34.6 L MCV 94.8 MCH 31.5 MCHC 33.2 RDW Std Deviation 48.4 H RDW Coeff of Santosh 14.0 Plt Count 155 MPV 11.8 H Immature Gran % (Auto) 0.3 Neut % (Auto) 44.8 Lymph % (Auto) 46.6 [place] % (Auto) 7.2 Eos % (Auto) 0.0 Baso % (Auto) 1.1 Neut # (Auto) 3.93 Lymph # (Auto) 4.09 H [place] # (Auto) 0.63 H Eos # (Auto) 0.00 Baso # (Auto) 0.10 Immature Gran # (Auto) 0.03 H Neutrophils % (Manual) Lymphocytes % (Manual) Reactive Lymphs % (Man) Monocytes % (Manual) Eosinophils % (Manual) Basophils % (Manual) Neutrophils # (Manual) Total Absolute Neuts Lymphocytes # (Manual) Reactive Lymphs # Total Abs Lymphocytes Monocytes # (Manual) Eosinophils # (Manual) Basophils # (Manual) PT 51.7 H INR 5.4 H APTT 45.7 H* PTT Ratio 1.6 Sodium 136 Potassium 3.5 Chloride 105 Carbon Dioxide 24 Anion Gap 7.0 BUN 37 H Creatinine 2.55 H Est Cr Clr Drug Dosing Not Reportable Est GFR ( Amer) 27.4 Est GFR (Non-Af Amer) 23.6 BUN/Creatinine Ratio 14.5 Glucose 133 H Calcium 8.3 L Magnesium 2.7 H Total Bilirubin 0.5 AST 57 H ALT 91 H Alkaline Phosphatase 90 Troponin I 0.061 H* Total Protein 7.1 Albumin 3.4 Globulin 3.7 Albumin/Globulin Ratio 0.9 TSH 2.980 Urine Color Urine Appearance Urine pH Ur Specific [place] Urine Protein Urine Glucose (UA) Urine Ketones Urine Blood Urine Nitrite Urine Bilirubin Urine Urobilinogen Ur Leukocyte Esterase Urine WBC (Auto) Urine RBC (Auto) U Hyaline Cast (Auto) U Epithel Cells (Auto) Urine Bacteria (Auto) SARS-CoV-2 Ag (Rapid) 06/05/20 06/05/20 06/06/20 19:20 22:44 03:25 WBC RBC Hgb Hct MCV MCH MCHC RDW Std Deviation RDW Coeff of Santosh Plt Count MPV Immature Gran % (Auto) Neut % (Auto) Lymph % (Auto) [place] % (Auto) Eos % (Auto) Baso % (Auto) Neut # (Auto) Lymph # (Auto) [place] # (Auto) Eos # (Auto) Baso # (Auto) Immature Gran # (Auto) Neutrophils % (Manual) Lymphocytes % (Manual) Reactive Lymphs % (Man) Monocytes % (Manual) Eosinophils % (Manual) Basophils % (Manual) Neutrophils # (Manual) Total Absolute Neuts Lymphocytes # (Manual) Reactive Lymphs # Total Abs Lymphocytes Monocytes # (Manual) Eosinophils # (Manual) Basophils # (Manual) PT INR APTT PTT Ratio Sodium Potassium Chloride Carbon Dioxide Anion Gap BUN Creatinine Est Cr Clr Drug Dosing Est GFR ( Amer) Est GFR (Non-Af Amer) BUN/Creatinine Ratio Glucose Calcium Magnesium Total Bilirubin AST ALT Alkaline Phosphatase Troponin I 0.105 H* Total Protein Albumin Globulin Albumin/Globulin Ratio TSH Urine Color Dark Yellow Urine Appearance Clear Urine pH 5.0 Ur Specific Cove 1.025 Urine Protein Trace H Urine Glucose (UA) Negative Urine Ketones Trace H Urine Blood Negative Urine Nitrite Negative Urine Bilirubin Negative Urine Urobilinogen Negative Ur Leukocyte Esterase Negative Urine WBC (Auto) 1-5 Urine RBC (Auto) 0-4 U Hyaline Cast (Auto) 1-5 U Epithel Cells (Auto) 10-20 H Urine Bacteria (Auto) Negative SARS-CoV-2 Ag (Rapid) Negative 06/06/20 06/06/20 06/06/20 05:14 05:14 05:14 WBC 5.74 RBC 3.20 L Hgb 10.1 L Hct 30.1 L MCV 94.1 MCH 31.6 MCHC 33.6 RDW Std Deviation 48.7 H RDW Coeff of Santosh 14.1 Plt Count 136 MPV 11.1 H Immature Gran % (Auto) Neut % (Auto) Lymph % (Auto) [place] % (Auto) Eos % (Auto) Baso % (Auto) Neut # (Auto) Lymph # (Auto) [place] # (Auto) Eos # (Auto) Baso # (Auto) Immature Gran # (Auto) Neutrophils % (Manual) 42.8 Lymphocytes % (Manual) 22.3 Reactive Lymphs % (Man) 31.3 Monocytes % (Manual) 1.8 Eosinophils % (Manual) 0.9 Basophils % (Manual) 0.9 Neutrophils # (Manual) 2.46 Total Absolute Neuts 2.46 Lymphocytes # (Manual) 1.28 Reactive Lymphs # 1.80 Total Abs Lymphocytes 3.08 Monocytes # (Manual) 0.10 L Eosinophils # (Manual) 0.05 Basophils # (Manual) 0.05 PT 35.0 H INR 3.6 H APTT PTT Ratio Sodium 139 Potassium 4.4 D Chloride 111 H Carbon Dioxide 25 Anion Gap 3.0 BUN 35 H Creatinine 2.04 H D Est Cr Clr Drug Dosing 40.4 Est GFR ( Amer) 35.9 Est GFR (Non-Af Amer) 31.0 BUN/Creatinine Ratio 17.0 Glucose 100 H Calcium 8.0 L Magnesium 2.5 H Total Bilirubin AST ALT Alkaline Phosphatase Troponin I Total Protein Albumin Globulin Albumin/Globulin Ratio TSH Urine Color Urine Appearance Urine pH Ur Specific Cove Urine Protein Urine Glucose (UA) Urine Ketones Urine Blood Urine Nitrite Urine Bilirubin Urine Urobilinogen Ur Leukocyte Esterase Urine WBC (Auto) Urine RBC (Auto) U Hyaline Cast (Auto) U Epithel Cells (Auto) Urine Bacteria (Auto) SARS-CoV-2 Ag (Rapid) Medications Administered Current Inpatient Medications Acetaminophen (Acetaminophen 325 Mg Tab) 650 mg PO Q4H PRN PRN Reason: Pain or Fever Stop: 07/05/20 22:32 Allopurinol (Allopurinol 100 Mg Tab) 100 mg PO DAILY [facility] Stop: 07/06/20 08:59 Last Admin: 06/06/20 08:56 Dose: 100 mg Documented by: Amiodarone HCl (Amiodarone 200 Mg Tab) 200 mg PO BID [facility] Stop: 07/05/20 22:44 Last Admin: 06/06/20 08:55 Dose: 200 mg Documented by: Aspirin (Aspirin 81 Mg Ectab) 81 mg PO DAILY [facility] [place] Stop: 07/06/20 08:59 Last Admin: 06/06/20 08:56 Dose: 81 mg Documented by: Atorvastatin Calcium (Atorvastatin 40 Mg Tab) 40 mg PO DAILY [facility] [place] Stop: 07/06/20 08:59 Last Admin: 06/06/20 08:56 Dose: 40 mg Documented by: Fluticasone Propionate (Fluticasone Propionate Na Spr 16 Gm Btl) 2 sprays NA DAILY [facility] Stop: 07/06/20 08:59 Last Admin: 06/06/20 08:55 Dose: Not Given Documented by: Promethazine HCl 12.5 mg/ (Sodium Chloride) 50.5 mls @ 202 mls/hr IV Q6H PRN PRN Reason: Nausea And Vomiting Stop: 07/05/20 22:32 Levothyroxine Sodium (Levothyroxine Sodium 25 Mcg Tablet) 25 mcg PO DAILYBB [facility] [place] Stop: 07/06/20 06:29 Last Admin: 06/06/20 06:36 Dose: 25 mcg Documented by: Metoprolol Succinate (Metoprolol Succ 50mg Ext Rel Tab) 50 mg PO BID KIAN Stop: 07/06/20 08:59 Last Admin: 06/06/20 08:56 Dose: 50 mg Documented by: Multivitamins (Multivitamin Tab) 1 tab PO DAILY KIAN Stop: 07/06/20 08:59 Last Admin: 06/06/20 08:56 Dose: 1 tab Documented by: Nitroglycerin (Nitroglycerin Sl 0.4 Mg/Tab Tab) 0.4 mg SL UD PRN PRN Reason: Chest Pain Stop: 07/05/20 22:32 Terazosin HCl (Terazosin Hcl 5 Mg Cap) 5 mg PO HS KIAN Stop: 07/05/20 22:44 Last Admin: 06/05/20 22:54 Dose: 5 mg Documented by: Tramadol HCl (Tramadol Hcl 50 Mg Tablet) 25 - 50 mg PO Q4H PRN PRN Reason: Pain Stop: 07/05/20 22:32
--- NOTE | 2020-06-06 14:36 | Electrocardiogram Report ---
Test Reason : Blood Pressure : / mmHG Vent. Rate : 115 BPM Atrial Rate : 070 BPM P-R Int : 000 ms QRS Dur : 180 ms QT Int : 454 ms P-R-T Axes : 000 -78 122 degrees QTc Int : 628 ms Ventricular-paced rhythm Biventricular pacemaker detected Abnormal ECG No previous ECGs available Confirmed by Gary Vega ([id number]) on 06/06/2020 2:36:09 PM Referred By: Valente Hall Confirmed By:Gary Vega
[2020-06-06] MEDS: TERAZOSIN HCL 5 MG CAP PO SCH (20:39)
--- NOTE | 2020-06-06 21:31 | Hospitalist Progress Note ---
Date of Service delayed entry date of service noted below June 06, 2020 Assessment & Plan (1) Defibrillator discharge: Secondary to tachyarrhythmia likely secondary to missed cardiac medication doses -- AICD interrogation: Device interrogation revealed 98% biventricular pacing, 3 antitachycardic therapy was delivered on the seventh. 2 were in the ventricular tachycardia range and one in the ventricular fibrillation range. 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 secondary to clinical dehydration -- recent outpatient labs reveal crea 2.0-2.4 -- resume lasix, aldactone in AM if crea stable Low grade fever -- 37.8 -- no symptoms/sign of infection -- no leukocytosis -- CXR clear, UA no UTI -- rapid Covid screen negative -- montior chronic systolic heart failure secondary to non-ischemic cardiomyopathy (EF 45 to 50%, TTE 2019), patient on the dry side hx nonocclusive CAD hx PAF on Coumadin, patient NSR, INR supratherapeutic -- coumadin held -- monitor INR history of VT -- management per #1 chronic anemia, hemoglobin at baseline prostate cancer status post radiation/hormonal therapy prediabetes (hemoglobin A1c of 6.01 December 2019) DVT prophylaxis. Coumadin INR goal between 2 and 3 Full code Disposition d/c home when cleared by senior online marketing manager, medically stable Admission and Anticipated Discharge Date Admission Date: June 05, 2020 Subjective ff up for AICD/Defibrillator firing seen sitting up in bed just had lunch comfortable, not in distress, pleasant states he feels fine overall no chest pain, dyspnea, dizziness, palpitations, headache no fever/chills, sore throat, cough, abdominal pain, problems with urination/BM states he is back to his baseline no other symptoms Review of Systems Review of Systems: All systems reviewed & are unremarkable except as noted in Subjective Physical Exam Physical Exam: General- oriented x 3, not in distress, speaks in sentences with no effort or accessory muscle use Head- atraumatic Eyes- PERRL, EOMI, anicteric ENT- oropharynx clear Neck- supple, no JVD, no adenopathy, no thyromegaly; carotids +2/2, no bruits appreciated Lungs- clear to auscultation bilaterally, no rales/wheezes Heart- normal rate, regular rhythm; no murmur, no gallop, no rub appreciated Abdomen- normal bowel sounds, nondistended, soft, nontender, no masses or hepatosplenomegaly Extremities- no pretibial edema, no calf tenderness; peripheral pulses intact Neuro- alert, oriented x 3; CN 2-12 grossly intact; motor 5/5 bilaterally;sens ation 100% on all extremities; no other gross focal neurologic deficits Skin- warm & dry Results & Data Results [facility] ([facility] Vital Signs (Past 12 Hours) Vital Signs Temp Pulse Pulse Pulse Resp BP Pulse Ox 06/06/20 19:34 37.4 C 62 12 128/71 93 06/06/20 16:00 60 06/06/20 15:39 36.6 C 62 23 117/68 95 06/06/20 12:00 36.6 C 63 20 145/76 H 94 Laboratory Results all noted and reviewed
[2020-06-07] MEDS: LEVOTHYROXINE SODIUM 25 MCG TABLET PO SCH (05:23)
[2020-06-07 06:03] LABS: INR 2.4 (0.9-1.1); Prothrombin Time 23.8 Seconds (9.0-12.0)
[2020-06-07] MEDS: AMIODARONE 200 MG TAB PO SCH (08:59)
[2020-06-07] MEDS: METOPROLOL SUCC 50MG EXT REL TAB PO SCH (08:59)
[2020-06-07] MEDS: allopurinoL 100 MG TAB PO SCH (08:59)
[2020-06-07] MEDS: FLUTICASONE PROPIONATE NA SPR 16 GM BTL SCH (08:59)
[2020-06-07] MEDS: ASPIRIN 81 MG ECTAB PO SCH (08:59)
[2020-06-07] MEDS: MULTIVITAMIN TAB PO SCH (08:59)
[2020-06-07] MEDS: ATORVASTATIN 40 MG TAB PO SCH (08:59)
--- NOTE | 2020-06-07 11:20 | Hospitalist Progress Note ---
Date of Service June 07, 2020 Assessment & Plan (1) Defibrillator discharge: Secondary to tachyarrhythmia medication non compliance missed cardiac medication doses -- AICD interrogation: Device interrogation revealed 98% biventricular pacing, 3 antitachycardic therapy was delivered on the seventh. 2 were in the ventricular tachycardia range and one in the ventricular fibrillation range. 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 Coumadin Disposition Discharge to home today Admission and Anticipated Discharge Date Admission Date: June 05, 2020 Subjective pt is comfortable sitting on edge of the bed no complain of chest pain or SOB , no arrhythmia on monitor . stable to be discharged home today Review of Systems Review of Systems: All systems reviewed & are unremarkable except as noted in HPI & below Respiratory: no cough, no dyspnea and no dyspnea on exertion Cardiovascular: no chest pain, no chest pain with activity, no dyspnea, no orthopnea, no palpitations, no lightheadedness, no syncope and no edema Physical Exam Constitutional: WD/WN, vitals as above Eyes: PERRL, conjunctivae normal, anicteric sclerae ENMT: external ear and nose normal, oropharynx normal Neck: trachea midline, no thyromegaly Respiratory: normal respiratory effort, lungs clear to auscultation Cardiovascular: RRR, no murmur, no edema Gastrointestinal (Abdomen): normal bowel sounds, soft, nontender, no hepatosplenomegaly Musculoskeletal: no cyanosis or clubbing, extremities motor strength 5/5 Skin: no rashes, warm and dry Neurologic: PERRL, EOMI, accommodation nl, no face palsy, no dysarthria Psychiatric: A+Ox3, euthymic affect Results & Data Results & Data ([facility]) Vital Signs (Past 12 Hours) Vital Signs Temp Pulse Pulse Resp BP Pulse Ox 06/07/20 08:00 37.2 C 60 06/07/20 03:55 37.5 C 60 24 129/68 91
--- NOTE | 2020-06-07 11:58 | Discharge Summary ---
Date of Service June 07, 2020 Admission HPI Per Admitting Provider History obtained from patient and records. Medical history significant for chronic systolic heart failure secondary to non- ischemic cardiomyopathy (EF 45 to 50%, TTE 2019), nonocclusive CAD, moderate mitral regurgitation, history PAF on Coumadin, history of VT, CRI (baseline creatinine 2.2), chronic anemia (baseline hemoglobin 11), prostate cancer status post radiation/hormonal therapy, prediabetes. Last confinement 2009 under Cardiology service for dilated cardiomyopathy status post cardiac catheterization. Patient not feeling well the last few days. Feeling weak and washed out. No known recent COVID-19 contacts. No chest pain, no S OB, no cough symptoms. Appetite fair. Admits to missing some of his pills. Achy posterior headache symptoms. Patient was on the commode today when he fell his ICD fire. Patient brought to the ER for evaluation. IV amiodarone administered at the ER for tachyarrhythmia. Medical History as above Surgical History : ICD placement, prostate biopsy, tonsillectomy/adenoidectomy Family History : Heart disease, brain cancer, Personal/Social history : Non-smoker, no EtOH intake, retired from [employer] work Principal Diagnosis Ventricular Tachycardia AICD firing Discharge Exam Constitutional WD/WN, vitals as above Eyes PERRL, conjunctivae normal, anicteric sclerae ENMT external ear and nose normal, oropharynx normal Neck trachea midline, no thyromegaly Respiratory normal respiratory effort, lungs clear to auscultation Cardiovascular RRR, no murmur, no edema Gastrointestinal (Abdomen) normal bowel sounds, soft, nontender, no hepatosplenomegaly Musculoskeletal no cyanosis or clubbing, extremities motor strength 5/5 Skin no rashes, warm and dry Neurologic PERRL, EOMI, accommodation nl, no face palsy, no dysarthria Psychiatric A+Ox3, euthymic affect Discharge Data Allergies Allergy/AdvReac Type Severity Reaction Status Date / Time Sulfa (Sulfonamide AdvReac Mild DIARRHEA Verified 06/05/20 21:02 Antibiotics) CALLIE Inhibitors AdvReac Unknown COUGH Verified 01/13/18 07:55 Consultations 06/05/20 20:06 ED Decision to Admit Stat 06/05/20 22:33 Consult Cardiology Routine Ordered Studies 06/05/20 20:21 CT head/brain wo con Urgent Hospital Course (1) Defibrillator discharge: Secondary to tachyarrhythmia medication non compliance missed cardiac medication doses -- AICD interrogation: Device interrogation revealed 98% biventricular pacing, 3 antitachycardic therapy was delivered on the seventh. 2 were in the ventricular tachycardia range and one in the ventricular fibrillation range. 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 secondary to clinical dehydration -- recent outpatient labs reveal crea 2.0-2.4 -- resumes Lasix, Aldactone repeat BMP in clinic in a week Low grade fever -- afebrile now no source of infection found no indication for Abx chronic combined systolic and diastolic heart failure secondary to non-ischemic cardiomyopathy (EF 45 to 50%, TTE 2019), stable vol status home diuretics resumed hx nonocclusive CAD: no complain of chest pain or SOB hx PAF on Coumadin, patient NSR, INR 2.4 now , Coumadin resumed history of VT -- s/p AICD cont Beta maxwell pt is counselled for medication compliance chronic anemia, hemoglobin at baseline prostate cancer status post radiation/hormonal therapy prediabetes (hemoglobin A1c of 6.01 December 2019) DVT prophylaxis. Coumadin Disposition Discharge to home today Total Time Total Time Spent Total Time Spent (In Minutes): 35 mins Total Time Includes: Examination of the Patient, Discharge Planning, Medication Reconciliation and Communication With Other Providers Discharge Plan Discharge Items Patient Disposition: Home - Home Health Services Reason For Visit: ICD SHOCK Discharge Diagnosis: ventricular tachycardia/AICD firing Medication Non compliance Condition on Discharge: Good Activity: Resume your previous activity Non-emergency contact: Primary Care Provider Call non-emergency contact if: you have any medication questions Follow-up/Referrals: Ioana Son DO [Primary Care Provider] - (Date & Time 06/13/2020 11:10 AM Provider Ioana Son DO Department Internal Medicine [facility] ) Diet: Heart Healthy Ambulatory Orders: Basic Metabolic Panel (Routine) Timeframe: 1 Week Location: Determined by Patient Ordered By: Megan Rodriguez Attending Provider Instructions: It is very important to take Medications as directed failure to take or miss medications can lead to serous consequences -irregular heart beat , high blood pressure , Heart failure , heart attack - Do not stop taking any medication without discussing with your Physician Follow up with Coumadin clinic for PT/INR monitoring and Coumadin dose adjustment Follow up with molder inflated ball as scheduled Pending Studies at Discharge: Yes Studies:: Lab work : basic metabolic panel in a week Stand-Alone Forms: My [facility] Medications and DC Order Prescriptions: Continued warfarin 5 mg tablet 0 mg PO DAILY RF: 0 levothyroxine 25 mcg tablet 25 mcg PO QAM RF: 0 terazosin 5 mg capsule 5 mg PO HS RF: 0 furosemide 40 mg tablet 40 mg PO BID RF: 0 lisinopril 10 mg tablet 10 mg PO DAILY RF: 0 magnesium oxide 400 mg (241.3 mg magnesium) tablet 400 mg PO Q2D RF: 0 allopurinol 100 mg tablet 100 mg PO DAILY RF: 0 spironolactone 25 mg tablet 12.5 mg PO QAM RF: 0 aspirin 81 mg Tablet,Delayed Release (Dr/Ec) 81 mg PO DAILY RF: 0 multivitamin Tablet 1 tab PO DAILY RF: 0 atorvastatin 40 mg tablet 40 mg PO DAILY RF: 0 fluticasone propionate 50 mcg/actuation [place],Suspension 2 spray INTRANASAL DAILY RF: 0 amiodarone 200 mg tablet 200 mg PO BID 60 Days Qty: 120 RF: 3 metoprolol succinate 50 mg tablet extended release 24 hr 50 mg PO BID 60 Days Qty: 120 RF: 3 Discharge Orders: Discharge Order (Routine); Ordered 06/07/20 Ordered By: Megan Tong Admission Data Admit Date/Time: 06/05/20 21:14 Attending Provider: Megan Tong Admit Provider: Yony Brown Primary Care Provider: Ioana Son Other Providers: Yony Brown ; Robert Mg ; Lonnie Miner ; Valente Hall ; Edmundo Roblero ; Dale Zambrano ; Lauro Thompson ; Abida Garcia ; Savita Huang ; Scooter Brady Other Interventions: Discharge Summary Assessment (RN) Last Done: 06/07/20 11:46
--- NOTE | 2020-06-07 12:58 | Cardiology Progress Note ---
Date of Service June 07, 2020 Assessment & Plan (1) Ventricular tachycardia: (2) Hypokalemia: (3) Noncompliance w/medication treatment due to intermit use of medication: (4) Supratherapeutic INR: (5) PAF (paroxysmal atrial fibrillation): (6) NICM (nonischemic cardiomyopathy): Device interrogation revealed 98% biventricular pacing, 3 antitachycardic therapy was delivered on the seventh. 2 were in the ventricular tachycardia range and one in the ventricular fibrillation range. Event likely secondary to medication noncompliance the need for which was stressed to the patient today. Longstanding history of nonischemic cardiomyopathy. Do not believe ischemic evaluation is warranted at this time given his otherwise lack of symptoms and recent nonischemic Lexiscan nuclear stress test from January 2020. Echocardiogram unchanged. Patient tolerating resumption of outpatient oral regimen without issue. No further arrhythmias on monitor. Okay to discharge to home on previous medical regimen. Need for medication adherence once again stressed to the patient and he states that he understands and will comply. Will require close follow-up as an outpatient with the [facility] and in the cardiology clinic. My office will call to arrange. Okay to discharge to home from a cardiac standpoint. Admission and Anticipated Discharge Date Admission Date: June 05, 2020 Subjective Patient seen and examined, chart reviewed. States that he feels great today and remains very anxious for discharge. Denies any ICD firings overnight. Denies chest pain, shortness of breath, palpitations, lightheadedness, dizziness or syncope. Telemetry reviewed: Normal sinus rhythm without arrhythmias or significant ectopy. Review of Systems Review of Systems: All systems reviewed & are unremarkable except as noted in HPI & below Results & Data ([facility]) Vital Signs (Past 12 Hours) Vital Signs Temp Pulse Pulse Pulse Resp BP BP 06/07/20 11:46 37.2 C 60 63 24 127/90 129/68 06/07/20 08:00 37.2 C 60 06/07/20 03:55 37.5 C 60 24 129/68 Pulse Ox 06/07/20 11:46 91 06/07/20 08:00 06/07/20 03:55 91
== END 2020-06-07 12:10 | disposition home or self-care (01) | DRG 309 ==
LOC: ED 17:10 → 1E 21:14 → SUATTDRO 21:14 → 1E 22:08

== ENCOUNTER 2021-12-24 02:05 | Observation (INO) ==
--- NOTE | 2021-12-24 02:16 | Emergency Department Note ---
History of Present Illness General Chief complaint: Shortness of Breath/Dyspnea Stated complaint: SOB Time Seen by Provider: 12/24/21 02:11 History of Present Illness 76-year-old male presents emergency department with a 2-day history of shortness of breath. Patient called EMS this evening for increased shortness of breath. He states dyspnea on exertion, orthopnea. Patient states chest congestion. Patient denies chest pain. Patient denies nausea vomiting fever. Patient's blood pressure was 210 systolic per EMS down to 140. Patient does relate taking Lasix daily. There are no other mitigating or alleviating factors Home Medications Medication Instructions Recorded Confirmed Type allopurinol 100 mg tablet 200 mg PO DAILY 06/05/20 12/24/21 History aspirin 81 mg tablet,delayed 81 mg PO DAILY 06/05/20 12/24/21 History release furosemide 40 mg tablet 80 mg PO BID 06/05/20 12/24/21 History levothyroxine 25 mcg tablet 37.5 mcg PO QAM 06/05/20 12/24/21 History amiodarone 200 mg tablet 200 mg PO BID 60 Days #120 tab 06/07/20 12/24/21 Rx metoprolol succinate 50 mg 50 mg PO BID 60 Days #120 tab 06/07/20 12/24/21 Rx tablet,extended release 24 hr lisinopril 5 mg tablet 2.5 mg PO DAILY 12/24/21 12/24/21 History rjkfxepj-eta-rjiht acid 0.4 1 tab PO DAILY 12/24/21 12/24/21 History mg-lycopene 300 mcg-lutein 250 mcg tablet (Centrum Silver) triamcinolone acetonide 0.1 % 1 applic TOPICAL BID PRN 12/24/21 12/24/21 History topical cream Allergies Allergy/AdvReac Type Severity Reaction Status Date / Time CALLIE Inhibitors AdvReac Intermediate COUGH Verified 12/24/21 02:32 Sulfa (Sulfonamide AdvReac Intermediate DIARRHEA Verified 12/24/21 02:32 Antibiotics) Past Med/Surg History Medical History Cardiomyopathy Chronic anticoagulation Chronic systolic heart failure CKD (chronic kidney disease) stage 3, GFR 30-59 ml/min Dyslipidemia HTN (hypertension) Iron deficiency anemia MGUS (monoclonal gammopathy of unknown significance) NICM (nonischemic cardiomyopathy) Pacemaker PAF (paroxysmal atrial fibrillation) Prediabetes Prostate cancer (03/15/13) "STAGING: Prostate, adenocarcinoma, meenu 3 + 4, PSA 17.38, cT2b, group IIB Prostate gland size - 40 cc (by TRUS, Dr. Joyner) initially followed with active surveillance PSAD - 0.434 TREATMENT: 1. 6 months of hormonal suppression 2. Status post completion of IMRT/IGRT 09/02/2016 received 8100 cGy" On 04/18/16 15:06 Lynne Henao wrote "STAGING: Prostate, adenocarcinoma, meenu 3 + 4, PSA 17.38, cT2b, group IIB Prostate gland size - 40 cc (by [facility], Dr. Joyner) PSAD - 0.434" Secondary hyperparathyroidism of renal origin Tubular adenoma of rectum Surgical History History of implantable cardioverter-defibrillator (ICD) placement History of tonsillectomy Hx of colonoscopy Family History Father Heart disease age 73 - [place] Uncle Heart disease paternal Grandfather (Paternal) Heart disease Social History (Updated 07/01/20 @ 16:19 by Theresa Kuo PA-C) Smoking Status: Never smoker Second Hand Exposure: No; Hx Alcohol Use: Yes Alcohol type: beer Alcohol Intake Frequency: Monthly or Less Hx Substance Use: No Preferred Language: Estonian Communication Ability: Effective Bag Adjuster Required: No Beliefs That Will Affect Care: None marital status: Current Living Situation: Alone Feels Safe at Home: Yes Assistive Devices: Denture - Lower and Glasses Review of Systems A total of 10 systems reviewed and were otherwise negative Constitutional: no fever Respiratory: + chest congestion, + dyspnea and + dyspnea on exertion Cardiovascular: no chest pain Physical Exam Vital Signs Vital Signs - 24 hr 12/24/21 01:56 12/24/21 02:16 12/24/21 02:25 Temperature 37.6 C H Temperature Source Oral Pulse Rate 71 63 Pulse Rate from SpO2 Sensor 62 Respiratory Rate 26 H 23 Respiratory Effort / Characteristics Non-Labored Spontaneous Respiratory Depth Normal Blood Pressure 184/69 H Blood Pressure Mean 107 Pulse Oximetry 95 94 94 Oxygen Delivery Method Nasal Cannula Nasal Cannula Oxygen Flow Rate 4 4 Sepsis Recent Fever Within 48 Hours No Sepsis New/Unexplained Change in Mental Status No Sepsis Action Taken by Nursing No Action Required 12/24/21 02:30 12/24/21 02:31 12/24/21 02:40 Temperature Temperature Source Pulse Rate 60 60 60 Pulse Rate from SpO2 Sensor 62 60 60 Respiratory Rate 25 H 24 26 H Respiratory Effort / Characteristics Respiratory Depth Blood Pressure 173/91 H Blood Pressure Mean 118 Pulse Oximetry 90 94 95 Oxygen Delivery Method Oxygen Flow Rate Sepsis Recent Fever Within 48 Hours Sepsis New/Unexplained Change in Mental Status Sepsis Action Taken by Nursing 12/24/21 02:46 12/24/21 02:50 12/24/21 03:00 Temperature Temperature Source Pulse Rate 60 60 Pulse Rate from SpO2 Sensor 60 60 Respiratory Rate 23 21 Respiratory Effort / Characteristics Respiratory Depth Blood Pressure 171/93 H Blood Pressure Mean 119 Pulse Oximetry 94 94 91 Oxygen Delivery Method Nasal Cannula Oxygen Flow Rate 4 Sepsis Recent Fever Within 48 Hours Sepsis New/Unexplained Change in Mental Status Sepsis Action Taken by Nursing VITAL SIGNS - Vital signs and nursing notes were reviewed. GENERAL -patient has mild increased work of breathing however speaking in full sentences; communicates well with provider and answers questions appropriately. SKIN - Without rashes. HEAD - NC/AT. EYES - PERRL with EOMI bilaterally. Sclera anicteric. Palpebral conjunctiva pink and moist with no injection noted. EARS - No deformities of external structures noted on gross examination bilaterally. NOSE - Midline and without cyanosis. No epistaxis or purulent drainage noted. Septum midline without deviation or septal hematoma noted. MOUTH/OROPHARYNX - Without perioral cyanosis. Buccal mucosa pink and moist NECK - Neck with FROM. LUNGS - Chest wall symmetric without accessory muscle use, intercostals retractions, or central cyanosis. Normal vesicular breath sounds CTA B/L. No wheezes, rales, or rhonchi appreciated. CARDIAC - RRR with S1/S2. No murmur, rubs, or gallops appreciated. ABDOMEN - Abdominal contour soft without pulsations or visible masses. BS norm oactive all four quadrants. No tenderness, palpable masses, hepatosplenomegaly, or ascites noted. EXTREMITIES - No clubbing or peripheral cyanosis. Bilateral lower extremity edema. +5/5 strength noted in UE/LE bilaterally. NEUROLOGIC - Cranial nerves II through XII grossly intact. PSYCH - A&Ox3 and cooperates fully with examiner. Pt is very pleasant and interacts well with examiner. Course Reevaluation(s) Reevaluation #1: Patient is resting in no distress was started on oxygen, was given IV Lasix 40 mg. The case was discussed with the [facility] hospitalist for admission for CHF. Time: 03:27 Administered Medications Discontinued Medications Furosemide (Furosemide 40 Mg/4 Ml Vial) 40 mg IV ONE ONE Stop: 12/24/21 02:29 Last Admin: 12/24/21 02:54 Dose: 40 mg Documented by: [id number] Medical Decision Making Medical Records Attestation: I reviewed the patient's medical records. Home Medications Current Medication List: was personally reviewed by me Laboratory Data Attestation: I reviewed the patient's lab results. Result diagrams: 12/24/21 02:20 12/24/21 02:20 Lab Results 12/24/21 12/24/21 12/24/21 Range/Units 02:19 02:20 02:20 WBC 10.81 H (4.8-10.8) K/uL RBC 4.17 L (4.7-6.1) M/uL Hgb 13.7 L (14.0-18.0) g/dL Hct 39.8 L (42-52) % MCV 95.4 (80-100) fL MCH 32.9 (25-34) pg MCHC 34.4 (32-36) g/dL RDW Std Deviation 48.7 H (36.4-46.3) fL RDW Coeff of Santosh 14.0 (11.5-14.5) % Plt Count 183 (130-400) K/uL MPV 12.2 H (7.4-10.4) fL Immature Gran % (Auto) 0.6 % Neut % (Auto) 80.4 % Lymph % (Auto) 11.7 % [place] % (Auto) 6.8 % Eos % (Auto) 0.3 % Baso % (Auto) 0.2 % Neut # (Auto) 8.70 H (1.4-6.5) K/uL Lymph # (Auto) 1.27 (1.2-3.4) K/uL [place] # (Auto) 0.73 H (0.11-0.59) K/uL Eos # (Auto) 0.03 (0-0.5) K/uL Baso # (Auto) 0.02 (0-0.2) K/uL Immature Gran # (Auto) 0.06 H (0.00-0.02) K/uL PT (9.0-12.0) Seconds INR (0.9-1.1) APTT (21.0-31.0) Seconds PTT Ratio Sodium (136-145) mmol/L Potassium (3.5-5.1) mmol/L Chloride (98-107) mmol/L Carbon Dioxide (21-32) mmol/L Anion Gap (3-11) BUN (6-23) mg/dl Creatinine (0.6-1.4) mg/dl Est Cr Clr Drug Dosing ml/min Est GFR ( Amer) ml/min Est GFR (Non-Af Amer) ml/min BUN/Creatinine Ratio (10-20) Glucose (70-99(Fasting)) mg/dl Calcium (8.5-10.1) mg/dl Magnesium (1.7-2.4) mg/dl Total Bilirubin (0.2-1.0) mg/dl AST (13-39) U/L ALT (7-52) U/L Alkaline Phosphatase (34-104) U/L B-Natriuretic Peptide 948 H (0-100) pg/ml Total Protein (6.0-8.3) gm/dl Albumin (3.4-5.0) gm/dl Globulin (2.5-4.0) gm/dl Albumin/Globulin Ratio (0.9-2) SARS-CoV-2, RNA, NAAT NEGATIVE (NEGATIVE) 12/24/21 12/24/21 Range/Units 02:20 02:20 WBC (4.8-10.8) K/uL RBC (4.7-6.1) M/uL Hgb (14.0-18.0) g/dL Hct (42-52) % MCV (80-100) fL MCH (25-34) pg MCHC (32-36) g/dL RDW Std Deviation (36.4-46.3) fL RDW Coeff of Satnosh (11.5-14.5) % Plt Count (130-400) K/uL MPV (7.4-10.4) fL Immature Gran % (Auto) % Neut % (Auto) % Lymph % (Auto) % [place] % (Auto) % Eos % (Auto) % Baso % (Auto) % Neut # (Auto) (1.4-6.5) K/uL Lymph # (Auto) (1.2-3.4) K/uL [place] # (Auto) (0.11-0.59) K/uL Eos # (Auto) (0-0.5) K/uL Baso # (Auto) (0-0.2) K/uL Immature Gran # (Auto) (0.00-0.02) K/uL PT 11.2 (9.0-12.0) Seconds INR 1.1 (0.9-1.1) APTT 25.1 (21.0-31.0) Seconds PTT Ratio 0.9 Sodium 138 (136-145) mmol/L Potassium 4.4 (3.5-5.1) mmol/L Chloride 106 (98-107) mmol/L Carbon Dioxide 24 (21-32) mmol/L Anion Gap 8 (3-11) BUN 25 H (6-23) mg/dl Creatinine 1.55 H (0.6-1.4) mg/dl Est Cr Clr Drug Dosing 54.6 ml/min Est GFR ( Amer) 49.3 ml/min Est GFR (Non-Af Amer) 42.5 ml/min BUN/Creatinine Ratio 16.1 (10-20) Glucose 166 H (70-99(Fasting)) mg/dl Calcium 8.6 (8.5-10.1) mg/dl Magnesium 2.2 (1.7-2.4) mg/dl Total Bilirubin 0.9 (0.2-1.0) mg/dl AST 28 (13-39) U/L ALT 43 (7-52) U/L Alkaline Phosphatase 91 (34-104) U/L B-Natriuretic Peptide (0-100) pg/ml Total Protein 6.5 (6.0-8.3) gm/dl Albumin 3.8 (3.4-5.0) gm/dl Globulin 2.7 (2.5-4.0) gm/dl Albumin/Globulin Ratio 1.4 (0.9-2) SARS-CoV-2, RNA, NAAT (NEGATIVE) Imaging Data Attestation: I personally reviewed and interpreted this imaging study as follows: My Impression: Chest x-ray interpreted by me cardiomegaly CHF pacemaker ECG Data Attestation: I personally reviewed and interpreted this ECG as follows: Additional Comments: EKG interpreted by me paced rhythm rate of [address] segment elevation or depression left axis deviation MDM Narrative Medical decision making differential diagnosis includes CHF pulmonary edema upp er respiratory tract infection pneumonia bronchitis. Will check cardiac evaluation chest x-ray COVID testing Impression & Plan Congestive heart failure Discharge Plan Visit Data Chief Complaint: Shortness of Breath/Dyspnea Stated Complaint: SOB ED Provider: Robert Lee Discharge Problem: Congestive heart failure Patient Disposition: Being Evaluated by Hospitalist Forms Stand Alone Forms: My [facility] [employer] Prescriptions Prescriptions: No Action levothyroxine 25 mcg tablet 37.5 mcg PO QAM RF: 0 furosemide 40 mg tablet 80 mg PO BID RF: 0 allopurinol 100 mg tablet 200 mg PO DAILY RF: 0 aspirin 81 mg Tablet,Delayed Release (Dr/Ec) 81 mg PO DAILY RF: 0 amiodarone 200 mg tablet 200 mg PO BID 60 Days Qty: 120 RF: 3 metoprolol succinate 50 mg tablet extended release 24 hr 50 mg PO BID 60 Days Qty: 120 RF: 3 triamcinolone acetonide 0.1 % Cream 1 applic TOPICAL BID PRN (Reason: AFFECTED AREA) RF: 0 lisinopril 5 mg tablet 2.5 mg PO DAILY RF: 0 Centrum Silver 0.4 mg-300 mcg- 250 mcg Tablet 1 tab PO DAILY RF: 0 Referrals Referrals: Ioana Son DO [Primary Care Provider] - Discharge Problem: Congestive heart failure Qualifiers: Heart failure type: unspecified Heart failure chronicity: acute Qualified Code(s): I50.9 - Heart failure, unspecified
[2021-12-24] MEDS ORDERED: FUROSEMIDE 40 MG/4 ML VIAL IV ONE ×3 (02:28→17:00)
[2021-12-24 02:39] LABS: Basophils # (auto) 0.02 K/uL (0-0.2); Basophils % (auto) 0.2 %; Eosinophils # (auto) 0.03 K/uL (0-0.5); Eosinophils % (auto) 0.3 %; Hematocrit (blood only) 39.8 % (42-52); Hemoglobin 13.7 g/dL (14.0-18.0); Immature Granulocytes # (auto) 0.06 K/uL (0.00-0.02); Immature Granulocytes % (auto) 0.6 %; Lymphocytes # (auto) 1.27 K/uL (1.2-3.4); Lymphocytes % (auto) 11.7 %; Mean Corpuscular Hemoglobin 32.9 pg (25-34); Mean Corpuscular Hgb Conc 34.4 g/dL (32-36); Mean Corpuscular Volume 95.4 fL (80-100); Mean Platelet Volume 12.2 fL (7.4-10.4); Monocytes # (auto) 0.73 K/uL (0.11-0.59); Monocytes % (auto) 6.8 %; Neutrophils % (auto) 80.4 %; Platelet Count 183 K/uL (130-400); RDW Standard Deviation 48.7 fL (36.4-46.3); Red Blood Count 4.17 M/uL (4.7-6.1); White Blood Count 10.81 K/uL (4.8-10.8)
[2021-12-24 02:50] LABS: INR 1.1 (0.9-1.1); Partial Thromboplastin Ratio 0.9; Partial Thromboplastin Time 25.1 Seconds (21.0-31.0); Prothrombin Time 11.2 Seconds (9.0-12.0)
[2021-12-24 03:04] LABS: Albumin Globulin Ratio 1.4 (0.9-2); Albumin Level 3.8 gm/dl (3.4-5.0); BUN Creatinine Ratio 16.1 (10-20); Bilirubin,Total 0.9 mg/dl (0.2-1.0); Calcium 8.6 mg/dl (8.5-10.1); Creatinine Clr Calc Pharmacy 54.6 ml/min; Est GFR (African American) 49.3 ml/min; Est GFR (Non-African American) 42.5 ml/min; Globulin 2.7 gm/dl (2.5-4.0); Magnesium 2.2 mg/dl (1.7-2.4); Potassium 4.4 mmol/L (3.5-5.1); Total Protein 6.5 gm/dl (6.0-8.3)
[2021-12-24] MEDS ORDERED: ACETAMINOPHEN 325 MG TAB PO STA (03:25)
[2021-12-24 03:32] LABS: Troponin I High Sensitivity 61.9 pg/ml (0-20)
[2021-12-24] MEDS ORDERED: ALBUT/IPRATROP 3MG/0.5MG NEB 3 ML VIAL NEB STA (04:02)
[2021-12-24] MEDS ORDERED: lisinopril 5 MG TAB PO ONE (04:04)
--- NOTE | 2021-12-24 04:04 | History & Physical Report ---
Date of Service December 24, 2021 Assessment & Plan (1) Acute hypoxemic respiratory failure: Plan: Secondary to decompensated heart failure hx chronic diastolic heart failure (EF 50 to 54%, TTE 2020) history nonischemic cardiomyopathy status post PPM/ICD ? Secondary to uncontrolled BP ? Secondary to progression of valvular heart disease (mild AR/TR, moderate TR 2020 TTE) Troponin elevation secondary to above history of VT on amiodarone PAF not on anticoagulation secondary to GI bleed, patient NSR hyperlipidemia, not on statin Rx secondary to abnormal LFTs from amiodarone hx MGUS CRI, creatinine at baseline prediabetes, hemoglobin A1c of 6.30 Oct 2021 prostate cancer status post radiation therapy, patient follows with [facility] urology chronic anemia, hemoglobin at baseline PCU Supplemental O2 Baseline ABG Diuretic Rx neb tx now Strict I/Os, daily weights, CHF education, fluid restriction for now Update TTE, Cardiology consult Re: Decompensated heart failure Titrate home BP meds Follow troponin DVT prophylaxis. Heparin subcu DNR Total critical care time was 40 minutes Text document was generated using [employer] voice recognition software. It may contain grammatical or spelling errors. Kindly contact undersigned for clarification of any documentation item in question. History of Present Illness Chief Complaint: Shortness of breath Primary Care Provider: Ioana Son, History obtained from patient and records. Medical history significant for chronic diastolic heart failure (EF 50 to 54%, TTE 2020), history nonischemic cardiomyopathy status post PPM/ICD, valvular heart disease (mild AR/TR, moderate TR recent echo), history of VT on amiodarone, PAF not on anticoagulation secondary to GI bleed, hypertension, hyperlipidemia, MGUS, CRI (baseline creatinine 2s), prediabetes, prostate cancer status post radiation therapy, chronic anemia (baseline hemoglobin of 13). Last confinement June 2020 for GI bleed. Patient declined endoscopic procedure. Coumadin stopped on discharge. Patient history of worsening shortness of breath mostly exertion. No chest pain. Usual dry cough symptoms attributed to postnasal drip. No known recent sick contacts. Patient completed COVID-19 vaccination. With retention, weight gain and leg swelling as per patient. Lasix administered at the ER. 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 Allergies Allergy/AdvReac Type Severity Reaction Status Date / Time CALLIE Inhibitors AdvReac Intermediate COUGH Verified 12/24/21 02:32 Sulfa (Sulfonamide AdvReac Intermediate DIARRHEA Verified 12/24/21 02:32 Antibiotics) Home Medications Medication Instructions Recorded Confirmed Type allopurinol 100 mg tablet 200 mg PO DAILY 06/05/20 12/24/21 History aspirin 81 mg tablet,delayed 81 mg PO DAILY 06/05/20 12/24/21 History release furosemide 40 mg tablet 80 mg PO BID 06/05/20 12/24/21 History levothyroxine 25 mcg tablet 37.5 mcg PO QAM 06/05/20 12/24/21 History amiodarone 200 mg tablet 200 mg PO BID 60 Days #120 tab 06/07/20 12/24/21 Rx metoprolol succinate 50 mg 50 mg PO BID 60 Days #120 tab 06/07/20 12/24/21 Rx tablet,extended release 24 hr lisinopril 5 mg tablet 2.5 mg PO DAILY 12/24/21 12/24/21 History sevylafd-ley-nnizm acid 0.4 1 tab PO DAILY 12/24/21 12/24/21 History mg-lycopene 300 mcg-lutein 250 mcg tablet (Centrum Silver) triamcinolone acetonide 0.1 % 1 applic TOPICAL BID PRN 12/24/21 12/24/21 History topical cream Past Med/Surg History Medical History Cardiomyopathy Chronic anticoagulation Chronic systolic heart failure CKD (chronic kidney disease) stage 3, GFR 30-59 ml/min Dyslipidemia GI bleed HTN (hypertension) Iron deficiency anemia MGUS (monoclonal gammopathy of unknown significance) NICM (nonischemic cardiomyopathy) Pacemaker PAF (paroxysmal atrial fibrillation) Prediabetes Prostate cancer (03/15/13) "STAGING: Prostate, adenocarcinoma, meenu 3 + 4, PSA 17.38, cT2b, group IIB Prostate gland size - 40 cc (by TR[facility], Dr. Joyner) initially followed with active surveillance PSAD - 0.434 TREATMENT: 1. 6 months of hormonal suppression 2. Status post completion of IMRT/IGRT 09/02/2016 received 8100 cGy" On 04/18/16 15:06 Lynne Henao wrote "STAGING: Prostate, adenocarcinoma, meenu 3 + 4, PSA 17.38, cT2b, group IIB Prostate gland size - 40 cc (by [facility], Dr. Joyner) PSAD - 0.434" Secondary hyperparathyroidism of renal origin Supratherapeutic INR Tubular adenoma of rectum Surgical History History of implantable cardioverter-defibrillator (ICD) placement History of tonsillectomy Hx of colonoscopy Family History Father Heart disease age 73 - [place] Uncle Heart disease paternal Grandfather (Paternal) Heart disease Social History Smoking Status: Never smoker Second Hand Exposure: No; Hx Alcohol Use: Yes Alcohol type: beer Alcohol Intake Frequency: Monthly or Less Hx Substance Use: No Preferred Language: [place]se Communication Ability: Effective Surgical Technician Required: No Beliefs That Will Affect Care: None marital status: Current Living Situation: Alone Feels Safe at Home: Yes Safety Concerns: Feels Safe At This Time Assistive Devices: Cane Review of Systems Review of Systems: As per HPI, all other systems reviewed and negative Physical Exam Physical Exam: GENERAL: Comfortable, pleasant, obese, minimal respiratory distress SKIN: Pallor, warm HEENT: Alopecia, pale palpebral conjunctivae, no ptosis, moist buccal mucosa, nasal cannula in place NECK : Supple, short neck, no tenderness CHEST : Decreased breath sounds, expiratory wheezes, no tenderness HEART : RRR, no obvious murmurs ABDOMEN: Some distention, nontender EXTREMITIES : Bilateral LE swelling, no LE tenderness, no other conspicuous deformities noted NEUROLOGIC : Coherent, no facial asymmetry, no other gross focality Results & Data Results & Data ([facility]) Vital Signs (Past 12 Hours) Vital Signs Temp Pulse Resp BP Pulse Ox 12/24/21 03:00 60 21 171/93 H 91 12/24/21 02:50 60 23 94 12/24/21 02:46 94 12/24/21 02:40 60 26 H 95 12/24/21 02:31 60 24 173/91 H 94 12/24/21 02:30 60 25 H 90 12/24/21 02:25 63 23 94 12/24/21 02:16 94 06/27/22 01:56 37.6 C H 71 26 H 184/69 H 95 Laboratory Results Laboratory Results WBC 10.81 K/uL (4.8-10.8) H 12/24/21 02:20 RBC 4.17 M/uL (4.7-6.1) L 12/24/21 02:20 Hgb 13.7 g/dL (14.0-18.0) L 12/24/21 02:20 Hct 39.8 % (42-52) L 12/24/21 02:20 MCV 95.4 fL (80-100) 12/24/21 02:20 MCH 32.9 pg (25-34) 12/24/21 02:20 MCHC 34.4 g/dL (32-36) 12/24/21 02:20 RDW Std Deviation 48.7 fL (36.4-46.3) H 12/24/21 02:20 RDW Coeff of Santosh 14.0 % (11.5-14.5) 12/24/21 02:20 Plt Count 183 K/uL (130-400) 12/24/21 02:20 MPV 12.2 fL (7.4-10.4) H 12/24/21 02:20 Immature Gran % (Auto) 0.6 % 12/24/21 02:20 Neut % (Auto) 80.4 % 12/24/21 02:20 Lymph % (Auto) 11.7 % 12/24/21 02:20 [place] % (Auto) 6.8 % 12/24/21 02:20 Eos % (Auto) 0.3 % 12/24/21 02:20 Baso % (Auto) 0.2 % 12/24/21 02:20 Neut # (Auto) 8.70 K/uL (1.4-6.5) H 12/24/21 02:20 Lymph # (Auto) 1.27 K/uL (1.2-3.4) 12/24/21 02:20 [place] # (Auto) 0.73 K/uL (0.11-0.59) H 12/24/21 02:20 Eos # (Auto) 0.03 K/uL (0-0.5) 12/24/21 02:20 Baso # (Auto) 0.02 K/uL (0-0.2) 12/24/21 02:20 Immature Gran # (Auto) 0.06 K/uL (0.00-0.02) H 12/24/21 02:20 PT 11.2 Seconds (9.0-12.0) 12/24/21 02:20 INR 1.1 (0.9-1.1) 12/24/21 02:20 APTT 25.1 Seconds (21.0-31.0) 12/24/21 02:20 PTT Ratio 0.9 12/24/21 02:20 Sodium 138 mmol/L (136-145) 12/24/21 02:20 Potassium 4.4 mmol/L (3.5-5.1) 12/24/21 02:20 Chloride 106 mmol/L (98-107) 12/24/21 02:20 Carbon Dioxide 24 mmol/L (21-32) 12/24/21 02:20 Anion Gap 8 (3-11) 12/24/21 02:20 BUN 25 mg/dl (6-23) H 12/24/21 02:20 Creatinine 1.55 mg/dl (0.6-1.4) H 12/24/21 02:20 Est Cr Clr Drug Dosing 54.6 ml/min 12/24/21 02:20 Est GFR ( Amer) 49.3 ml/min 12/24/21 02:20 Est GFR (Non-Af Amer) 42.5 ml/min 12/24/21 02:20 BUN/Creatinine Ratio 16.1 (10-20) 12/24/21 02:20 Glucose 166 mg/dl (70-99(Fasting)) H 12/24/21 02:20 Calcium 8.6 mg/dl (8.5-10.1) 12/24/21 02:20 Magnesium 2.2 mg/dl (1.7-2.4) 12/24/21 02:20 Total Bilirubin 0.9 mg/dl (0.2-1.0) 12/24/21 02:20 AST 28 U/L (13-39) 12/24/21 02:20 ALT 43 U/L (7-52) 12/24/21 02:20 Alkaline Phosphatase 91 U/L (34-104) 12/24/21 02:20 Troponin I High Sens 61.9 pg/ml (0-20) H* 12/24/21 02:20 B-Natriuretic Peptide 948 pg/ml (0-100) H 12/24/21 02:20 Total Protein 6.5 gm/dl (6.0-8.3) 12/24/21 02:20 Albumin 3.8 gm/dl (3.4-5.0) 12/24/21 02:20 Globulin 2.7 gm/dl (2.5-4.0) 12/24/21 02:20 Albumin/Globulin Ratio 1.4 (0.9-2) 12/24/21 02:20 SARS-CoV-2, RNA, NAAT NEGATIVE (NEGATIVE) 12/24/21 02:19 Diagnostic Findings Chest x-ray as per my interpretation congestion EKG as per my interpretation : Rate 70, paced rhythm
[2021-12-24 04:50] LABS: Base Excess ABG 4.1 mEq/L (-9-1.8); HCO3 ABG 29 mmol/L (19-24); PCO2 ABG 41 mmHg (35-46); PO2 ABG 199 mmHg (80-95); pH ABG 7.45 (7.35-7.45)
[2021-12-24 04:52] LABS: Allen Test Pos (Pos)
[2021-12-24 04:55] LABS: Appearance Urine Clear (Clear); Bilirubin Urine Negative (Negative); Blood Urine Negative (Negative); Color Urine Yellow; Glucose Urine UA Negative (Negative); Ketones Urine Negative (Negative); Leukocyte Esterase Urine Negative (Negative); Nitrite Urine Negative (Negative); Protein Urine Negative (Negative); Specific Gravity Urine 1.009 (1.000-1.030); Urobilinogen Urine Negative (Negative)
[2021-12-24] MEDS ORDERED: HYDROmorphone INJ 0.5 MG/0.5 ML SYR IV PRN (06:22)
[2021-12-24] MEDS ORDERED: traMADol HCL 50 MG TABLET PO PRN (06:22)
[2021-12-24] MEDS ORDERED: ACETAMINOPHEN 325 MG TAB PO PRN (06:22)
[2021-12-24] MEDS ORDERED: NITROGLYCERIN SL 0.4 MG/TAB TAB SL PRN (06:22)
[2021-12-24] MEDS ORDERED: PROMETHAZINE HCL 12.5 MG in SODIUM CHLORIDE 0.9% 50 ML IV PRN (06:22)
--- NOTE | 2021-12-24 07:01 | XRay Report ---
XR chest 1V portable CLINICAL HISTORY: Dyspnea COMPARISON STUDY: Chest radiograph June 05, 2020. FINDINGS: Left subclavian biventricular pacer/AICD is in place. Note is made of mild cardiomegaly. Th ere is no pneumothorax. No definite pleural effusion. Interstitial thickening is noted. There are bib asilar opacities. IMPRESSION: 1. Interstitial thickening suggestive of interstitial pulmonary edema. 2. Bibasilar opacities which could reflect atelectasis or an infectious process. Radiographic follow- up to ensure resolution is recommended. ACT 112: Negative or not required by law. Electronically signed by: Memo Lee M.D. 12/24/2021 7:00 AM
[2021-12-24] MEDS: HEPARIN SOD 5,000 UNIT/0.5 ML VIAL SQ SCH ×3 (07:27→20:00)
[2021-12-24] MEDS: LEVOTHYROXINE SODIUM 25 MCG TABLET PO SCH (07:28)
--- NOTE | 2021-12-24 08:35 | Hospitalist Progress Note ---
Date of Service December 24, 2021 Assessment & Plan (1) Acute hypoxemic respiratory failure: Plan: Secondary to decompensated heart failure hx chronic diastolic heart failure (EF 50 to 54%, TTE 2020) history nonischemic cardiomyopathy status post PPM/ICD ? Secondary to uncontrolled BP ? Secondary to progression of valvular heart disease (mild AR/TR, moderate TR 2020 TTE) Troponin elevation secondary to above trop level 60s to 70s currently on RA Cardiology consulted - give 80 IV lasix this PM, monitor Strict I/Os, daily weights, CHF education, fluid restriction for now Echo ordered Follow up CXR AM Clinically patient improved, currently on 2 L of nasal cannula Continue to closely monitor Chronic conditions history of VT on amiodarone PAF not on anticoagulation secondary to GI bleed, patient NSR hyperlipidemia, not on statin Rx secondary to abnormal LFTs from amiodarone hx MGUS CRI, creatinine at baseline prediabetes, hemoglobin A1c of 6.30 Oct 2021 prostate cancer s/p radiation therapy, patient follows with [facility] chronic anemia, hemoglobin at baseline DVT prophylaxis. Heparin subcu DNR Admission and Anticipated Discharge Date Admission Date: December 24, 2021 Subjective Follow-up for hypoxic respiratory failure, secondary to chf exacerbation Currently patient sitting up in chair, in no acute distress However, he now reports again feeling short of breath He is currently on room air, says that he feels better since admission though He just received 80 mg of IV Lasix, we will closely monitor for response No fevers, chills, chest pain, palpitation Denies cough Review of Systems Review of Systems: All systems reviewed & are unremarkable except as noted in Subjective Physical Exam Physical Exam: GENERAL: elderly obese M, minimal respiratory distress, on RA HEENT: NC/AT. Alopecia, pale palpebral conjunctivae NECK : Supple CHEST : Decreased breath sounds, minimal expiratory wheezes HEART : RRR, no obvious murmurs ABDOMEN: soft, + bowel sounds, some distention, nontender EXTREMITIES : Bilateral LE swelling, no LE tenderness SKIN: warm, dry NEUROLOGIC : alert oriented, answering questions appropriately, no facial asymmetry,moves extremities Results & Data Results & Data ([facility]) Vital Signs (Past 12 Hours) Vital Signs Temp Pulse Pulse Resp BP BP Pulse Ox 12/24/21 08:14 36.7 C 63 20 139/85 94 12/24/21 06:25 36.5 C 60 18 151/87 H 98 12/24/21 04:20 60 22 95 12/24/21 04:10 60 23 94 12/24/21 04:01 62 25 H 179/90 H 93 12/24/21 04:00 64 24 89 L 12/24/21 03:50 66 92 12/24/21 03:40 62 94 12/24/21 03:31 164/80 H 94 12/24/21 03:30 60 92 12/24/21 03:20 60 21 93 12/24/21 03:10 60 21 93 12/24/21 03:00 60 21 171/93 H 91 12/24/21 02:50 60 23 94 12/24/21 02:46 94 12/24/21 02:40 60 26 H 95 12/24/21 02:31 60 24 173/91 H 94 12/24/21 02:30 60 25 H 90 12/24/21 02:25 63 23 94 12/24/21 02:16 94 12/24/21 01:56 37.6 C H 71 26 H 184/69 H 95 Laboratory Results 12/24/21 12/24/21 12/24/21 Range/Units 08:02 04:35 04:35 WBC (4.8-10.8) K/uL RBC (4.7-6.1) M/uL Hgb (14.0-18.0) g/dL Hct (42-52) % MCV (80-100) fL MCH (25-34) pg MCHC (32-36) g/dL RDW Std Deviation (36.4-46.3) fL RDW Coeff of Santosh (11.5-14.5) % Plt Count (130-400) K/uL MPV (7.4-10.4) fL Immature Gran % (Auto) % Neut % (Auto) % Lymph % (Auto) % [place] % (Auto) % Eos % (Auto) % Baso % (Auto) % Neut # (Auto) (1.4-6.5) K/uL Lymph # (Auto) (1.2-3.4) K/uL [place] # (Auto) (0.11-0.59) K/uL Eos # (Auto) (0-0.5) K/uL Baso # (Auto) (0-0.2) K/uL Immature Gran # (Auto) (0.00-0.02) K/uL PT (9.0-12.0) Seconds INR (0.9-1.1) APTT (21.0-31.0) Seconds PTT Ratio ABG pH 7.45 (7.35-7.45) ABG pCO2 41 (35-46) mmHg ABG pO2 199 H (80-95) mmHg ABG HCO3 29 H (19-24) mmol/L ABG O2 Saturation 100.0 H (90-95) % ABG Base Excess 4.1 H (-9-1.8) mEq/L Ayden Test Pos (Pos) Oxygen Given 4L Sodium (136-145) mmol/L Potassium (3.5-5.1) mmol/L Chloride (98-107) mmol/L Carbon Dioxide (21-32) mmol/L Anion Gap (3-11) BUN (6-23) mg/dl Creatinine (0.6-1.4) mg/dl Est Cr Clr Drug Dosing ml/min Est GFR ( Amer) ml/min Est GFR (Non-Af Amer) ml/min BUN/Creatinine Ratio (10-20) Glucose (70-99(Fasting)) mg/dl Calcium (8.5-10.1) mg/dl Magnesium (1.7-2.4) mg/dl Total Bilirubin (0.2-1.0) mg/dl AST (13-39) U/L ALT (7-52) U/L Alkaline Phosphatase (34-104) U/L Troponin I High Sens Pending 72.7 H* D (0-20) pg/ml B-Natriuretic Peptide (0-100) pg/ml Total Protein (6.0-8.3) gm/dl Albumin (3.4-5.0) gm/dl Globulin (2.5-4.0) gm/dl Albumin/Globulin Ratio (0.9-2) Urine Color Urine Appearance (Clear) Urine pH (4.5-7.5) Ur Specific [place] (1.000-1.030) Urine Protein (Negative) Urine Glucose (UA) (Negative) Urine Ketones (Negative) Urine Blood (Negative) Urine Nitrite (Negative) Urine Bilirubin (Negative) Urine Urobilinogen (Negative) Ur Leukocyte Esterase (Negative) SARS-CoV-2, RNA, NAAT (NEGATIVE) 12/24/21 12/24/21 12/24/21 Range/Units 04:20 02:20 02:20 WBC (4.8-10.8) K/uL RBC (4.7-6.1) M/uL Hgb (14.0-18.0) g/dL Hct (42-52) % MCV (80-100) fL MCH (25-34) pg MCHC (32-36) g/dL RDW Std Deviation (36.4-46.3) fL RDW Coeff of Santosh (11.5-14.5) % Plt Count (130-400) K/uL MPV (7.4-10.4) fL Immature Gran % (Auto) % Neut % (Auto) % Lymph % (Auto) % [place] % (Auto) % Eos % (Auto) % Baso % (Auto) % Neut # (Auto) (1.4-6.5) K/uL Lymph # (Auto) (1.2-3.4) K/uL [place] # (Auto) (0.11-0.59) K/uL Eos # (Auto) (0-0.5) K/uL Baso # (Auto) (0-0.2) K/uL Immature Gran # (Auto) (0.00-0.02) K/uL PT 11.2 (9.0-12.0) Seconds INR 1.1 (0.9-1.1) APTT 25.1 (21.0-31.0) Seconds PTT Ratio 0.9 ABG pH (7.35-7.45) ABG pCO2 (35-46) mmHg ABG pO2 (80-95) mmHg ABG HCO3 (19-24) mmol/L ABG O2 Saturation (90-95) % ABG Base Excess (-9-1.8) mEq/L Ayden Test (Pos) Oxygen Given Sodium 138 (136-145) mmol/L Potassium 4.4 (3.5-5.1) mmol/L Chloride 106 (98-107) mmol/L Carbon Dioxide 24 (21-32) mmol/L Anion Gap 8 (3-11) BUN 25 H (6-23) mg/dl Creatinine 1.55 H (0.6-1.4) mg/dl Est Cr Clr Drug Dosing 54.6 ml/min Est GFR ( Amer) 49.3 ml/min Est GFR (Non-Af Amer) 42.5 ml/min BUN/Creatinine Ratio 16.1 (10-20) Glucose 166 H (70-99(Fasting)) mg/dl Calcium 8.6 (8.5-10.1) mg/dl Magnesium 2.2 (1.7-2.4) mg/dl Total Bilirubin 0.9 (0.2-1.0) mg/dl AST 28 (13-39) U/L ALT 43 (7-52) U/L Alkaline Phosphatase 91 (34-104) U/L Troponin I High Sens 61.9 H* (0-20) pg/ml B-Natriuretic Peptide (0-100) pg/ml Total Protein 6.5 (6.0-8.3) gm/dl Albumin 3.8 (3.4-5.0) gm/dl Globulin 2.7 (2.5-4.0) gm/dl Albumin/Globulin Ratio 1.4 (0.9-2) Urine Color Yellow Urine Appearance Clear (Clear) Urine pH 6.0 (4.5-7.5) Ur Specific [place] 1.009 (1.000-1.030) Urine Protein Negative (Negative) Urine Glucose (UA) Negative (Negative) Urine Ketones Negative (Negative) Urine Blood Negative (Negative) Urine Nitrite Negative (Negative) Urine Bilirubin Negative (Negative) Urine Urobilinogen Negative (Negative) Ur Leukocyte Esterase Negative (Negative) SARS-CoV-2, RNA, NAAT (NEGATIVE) 12/24/21 12/24/21 12/24/21 Range/Units 02:20 02:20 02:19 WBC 10.81 H (4.8-10.8) K/uL RBC 4.17 L (4.7-6.1) M/uL Hgb 13.7 L (14.0-18.0) g/dL Hct 39.8 L (42-52) % MCV 95.4 (80-100) fL MCH 32.9 (25-34) pg MCHC 34.4 (32-36) g/dL RDW Std Deviation 48.7 H (36.4-46.3) fL RDW Coeff of Santosh 14.0 (11.5-14.5) % Plt Count 183 (130-400) K/uL MPV 12.2 H (7.4-10.4) fL Immature Gran % (Auto) 0.6 % Neut % (Auto) 80.4 % Lymph % (Auto) 11.7 % [place] % (Auto) 6.8 % Eos % (Auto) 0.3 % Baso % (Auto) 0.2 % Neut # (Auto) 8.70 H (1.4-6.5) K/uL Lymph # (Auto) 1.27 (1.2-3.4) K/uL [place] # (Auto) 0.73 H (0.11-0.59) K/uL Eos # (Auto) 0.03 (0-0.5) K/uL Baso # (Auto) 0.02 (0-0.2) K/uL Immature Gran # (Auto) 0.06 H (0.00-0.02) K/uL PT (9.0-12.0) Seconds INR (0.9-1.1) APTT (21.0-31.0) Seconds PTT Ratio ABG pH (7.35-7.45) ABG pCO2 (35-46) mmHg ABG pO2 (80-95) mmHg ABG HCO3 (19-24) mmol/L ABG O2 Saturation (90-95) % ABG Base Excess (-9-1.8) mEq/L Ayden Test (Pos) Oxygen Given Sodium (136-145) mmol/L Potassium (3.5-5.1) mmol/L Chloride (98-107) mmol/L Carbon Dioxide (21-32) mmol/L Anion Gap (3-11) BUN (6-23) mg/dl Creatinine (0.6-1.4) mg/dl Est Cr Clr Drug Dosing ml/min Est GFR ( Amer) ml/min Est GFR (Non-Af Amer) ml/min BUN/Creatinine Ratio (10-20) Glucose (70-99(Fasting)) mg/dl Calcium (8.5-10.1) mg/dl Magnesium (1.7-2.4) mg/dl Total Bilirubin (0.2-1.0) mg/dl AST (13-39) U/L ALT (7-52) U/L Alkaline Phosphatase (34-104) U/L Troponin I High Sens (0-20) pg/ml B-Natriuretic Peptide 948 H (0-100) pg/ml Total Protein (6.0-8.3) gm/dl Albumin (3.4-5.0) gm/dl Globulin (2.5-4.0) gm/dl Albumin/Globulin Ratio (0.9-2) Urine Color Urine Appearance (Clear) Urine pH (4.5-7.5) Ur Specific [place] (1.000-1.030) Urine Protein (Negative) Urine Glucose (UA) (Negative) Urine Ketones (Negative) Urine Blood (Negative) Urine Nitrite (Negative) Urine Bilirubin (Negative) Urine Urobilinogen (Negative) Ur Leukocyte Esterase (Negative) SARS-CoV-2, RNA, NAAT NEGATIVE (NEGATIVE) Medications Administered Current Inpatient Medications Acetaminophen (Acetaminophen 325 Mg Tab) 650 mg PO Q4H PRN PRN Reason: Pain or Fever Stop: 01/23/22 06:21 Allopurinol (Allopurinol 100 Mg Tab) 200 mg PO DAILY KIAN Stop: 01/23/22 08:59 Amiodarone HCl (Amiodarone 200 Mg Tab) 200 mg PO BID KIAN Stop: 01/23/22 08:59 Aspirin (Aspirin 81 Mg Ectab) 81 mg PO DAILY KIAN Stop: 01/23/22 08:59 Furosemide (Furosemide 40 Mg/4 Ml Vial) 80 mg IV ONE ONE Stop: 12/24/21 17:01 Heparin Sodium (Porcine) (Heparin Sod 5,000 Unit/0.5 Ml Vial) 5,000 units SQ Q8 KIAN Stop: 01/23/22 06:21 Last Admin: 12/24/21 07:27 Dose: 5,000 units Documented by: Hydromorphone HCl (Hydromorphone Inj 0.5 Mg/0.5 Ml Syr) 0.5 mg IV Q3H PRN PRN Reason: Pain Stop: 01/07/22 06:21 Promethazine HCl 12.5 mg/ (Sodium Chloride) 50.5 mls @ 202 mls/hr IV Q6H PRN PRN Reason: Nausea And Vomiting Stop: 01/23/22 06:21 Levothyroxine Sodium (Levothyroxine Sodium 25 Mcg Tablet) 37.5 mcg PO DAILYBB KIAN Stop: 01/23/22 06:29 Last Admin: 12/24/21 07:28 Dose: 37.5 mcg Documented by: Lisinopril (Lisinopril 2.5 Mg Tab) 2.5 mg PO DAILY KIAN Stop: 01/24/22 08:59 Metoprolol Succinate (Metoprolol Succ 50mg Ext Rel Tab) 50 mg PO BID KIAN Stop: 01/23/22 08:59 Multivitamins/Minerals (Cerovite Adv Formula Tab) 1 tab PO DAILY KIAN Stop: 01/23/22 08:59 Nitroglycerin (Nitroglycerin Sl 0.4 Mg/Tab Tab) 0.4 mg SL UD PRN PRN Reason: Chest Pain Stop: 01/23/22 06:21 Tramadol HCl (Tramadol Hcl 50 Mg Tablet) 25 - 50 mg PO Q4H PRN PRN Reason: Pain Stop: 01/23/22 06:21
--- NOTE | 2021-12-24 09:04 | Electrocardiogram Report ---
Test Reason : Blood Pressure : / mmHG Vent. Rate : 070 BPM Atrial Rate : 075 BPM P-R Int : 164 ms QRS Dur : 208 ms QT Int : 516 ms P-R-T Axes : 000 234 088 degrees QTc Int : 557 ms AV dual-paced rhythm Biventricular pacemaker detected Abnormal ECG When compared with ECG of 01-JUL-2020 11:47, Vent. rate has increased BY 10 BPM Confirmed by Juan Correa ([id number]) on 12/24/2021 9:04:16 AM Referred By: REFERRED SELF Confirmed By:Juan Correa
[2021-12-24] MEDS: AMIODARONE 200 MG TAB PO SCH ×2 (09:19→19:58)
[2021-12-24] MEDS: allopurinoL 100 MG TAB PO SCH (09:19)
[2021-12-24] MEDS: CEROVITE ADV FORMULA TAB PO SCH (09:20)
[2021-12-24] MEDS: METOPROLOL SUCC 50MG EXT REL TAB PO SCH ×2 (09:20→19:58)
[2021-12-24] MEDS: ASPIRIN 81 MG ECTAB PO SCH (09:20)
--- NOTE | 2021-12-24 10:18 | Cardiology Consultation ---
Date of Consultation December 24, 2021 Assessment & Plan (1) Acute hypoxemic respiratory failure: (2) Congestive heart failure: (3) History of implantable cardioverter-defibrillator (ICD) placement: (4) Chronic systolic heart failure: (5) CKD (chronic kidney disease) stage 3, GFR 30-59 ml/min: (6) NICM (nonischemic cardiomyopathy): (7) PAF (paroxysmal atrial fibrillation): (8) Iron deficiency anemia: (9) Ventricular tachycardia: (10) Elevated troponin: Acute hypoxemic respiratory failure Acute decompensated right greater than left biventricular congestive heart failure Elevated high sensitivity troponin 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 Paroxysmal atrial fibrillation Frequent ventricular ectopy with resultant past reduction in biventricular pacemaker function History of fast ventricular tachycardia status post appropriate device discharges as detailed above. Amiodarone initiated January 20, 2020 Patient hospitalized July 01, 2020 to July 02, 2020 with undefined rectal bleeding, symptomatic anemia requiring transfusion of 2 units packed red blood cells. Anticoagulation (Coumadin) held. Endoscopy declined. Chart history of MGUS and iron deficiency anemia Stage III-IV chronic kidney disease Hypertension Dyslipidemia History of gout RECOMMENDATIONS: Strict I/Os, daily weights, CHF education, fluid restriction Continue IV diuresis; 80 mg IV this afternoon then reassess ongoing need in AM PA and lateral chest x-ray in AM, low threshold for noncontrast CT of the chest Resting echocardiogram Device interrogation Supervising Physician Co-Signing Physician Notes I seen and examined the patient. I reviewed the medical record and discussed the case with Mr. Thompson. I agree with the plan as outlined above. History of Present Illness Reason for Consultation: CHF Requesting Physician: Kevin. Attending Physician: Chey History of Present Illness Mr. Celso Grant is a complex 76 year old male who presented to the [facility] ER via EMS due to abrupt onset acute on chronic dyspnea last night around 12:30. Patient notes worsening dyspnea over the last two days, attributed to dietary sodium indiscretion. Notes having potato chips at the [employer], with a meatball sandwich, for the first time in two years. Notes worsening shortness of breath with activity and when attempting to lay flat. Notes wheezing. Patient received 40 mg IV furosemide in the ER with improved but not resolution of symptoms. Patient denies chest pain, tachypalpitations, abdominal bloating, worsening left greater than right lower extremity edema, or weight gain. Denies recent travel or periods of prolonged immobility. No recent injury. No sick contacts. No lightheadedness, dizziness, near syncope, or syncope. No fevers or chills. Past Medical and Surgical History: Right greater than left biventricular congestive heart failure Dilated nonischemic cardiomyopathy with history of severe LV dysfunction initially diagnosed in October 2009 Status post biventricular pacemaker defibrillator implantation on 09/04/2010, generator replacement on 10/28/2014. Paroxysmal atrial fibrillation Frequent ventricular ectopy with resultant past reduction in biventricular pacemaker function Fast ventricular tachycardia status post appropriate device discharges as detailed above. Amiodarone initiated January 20, 2020 Hospitalized July 01, 2020 to July 02, 2020 with undefined rectal bleeding, symptomatic anemia requiring transfusion of 2 units packed red blood cells. Anticoagulation (Coumadin) held. Endoscopy declined. Iron deficiency anemia due to chronic blood loss Chart history of MGUS and iron deficiency anemia Stage III-IV chronic kidney disease Hypertension Dyslipidemia History of gout Prostate carcinoma status post radiation therapy Prediabetes. Gout Secondary hyperparathyroidism of renal origin Thrombocytopenia Colonoscopy with adenomatous polyp, diverticulosis wisdom teeth extraction Prostate biopsy Removal of tonsils and adenoids Family History: Mother at 65 with brain cancer. Father at 73 with an NC. Uncle with an NC. Paternal grandfather with an NC. Social History: Nonsmoker. No smokeless tobacco. No significant alcohol. Complete Review of Systems is as stated above, negative, or noncontributory. Allergies Allergy/AdvReac Type Severity Reaction Status Date / Time CALLIE Inhibitors AdvReac Intermediate COUGH Verified 12/24/21 02:32 Sulfa (Sulfonamide AdvReac Intermediate DIARRHEA Verified 12/24/21 02:32 Antibiotics) Home Medications Medication Instructions Recorded Confirmed Type allopurinol 100 mg tablet 200 mg PO DAILY 06/05/20 12/24/21 History aspirin 81 mg tablet,delayed 81 mg PO DAILY 06/05/20 12/24/21 History release furosemide 40 mg tablet 80 mg PO BID 06/05/20 12/24/21 History levothyroxine 25 mcg tablet 37.5 mcg PO QAM 06/05/20 12/24/21 History amiodarone 200 mg tablet 200 mg PO BID 60 Days #120 tab 06/07/20 12/24/21 Rx metoprolol succinate 50 mg 50 mg PO BID 60 Days #120 tab 06/07/20 12/24/21 Rx tablet,extended release 24 hr lisinopril 5 mg tablet 2.5 mg PO DAILY 12/24/21 12/24/21 History blxirayz-ora-osqel acid 0.4 1 tab PO DAILY 12/24/21 12/24/21 History mg-lycopene 300 mcg-lutein 250 mcg tablet (Centrum Silver) triamcinolone acetonide 0.1 % 1 applic TOPICAL BID PRN 12/24/21 12/24/21 History topical cream Patient History Medical History Cardiomyopathy Chronic anticoagulation Chronic systolic heart failure CKD (chronic kidney disease) stage 3, GFR 30-59 ml/min Dyslipidemia GI bleed HTN (hypertension) Iron deficiency anemia MGUS (monoclonal gammopathy of unknown significance) NICM (nonischemic cardiomyopathy) Pacemaker PAF (paroxysmal atrial fibrillation) Prediabetes Prostate cancer (03/15/13) "STAGING: Prostate, adenocarcinoma, meenu 3 + 4, PSA 17.38, cT2b, group IIB Prostate gland size - 40 cc (by [facility], Dr. Joyner) initially followed with active surveillance PSAD - 0.434 TREATMENT: 1. 6 months of hormonal suppression 2. Status post completion of IMRT/IGRT 09/02/2016 received 8100 cGy" On 04/18/16 15:06 Lynne Henao wrote "STAGING: Prostate, adenocarcinoma, meenu 3 + 4, PSA 17.38, cT2b, group IIB Prostate gland size - 40 cc (by [facility], Dr. Joyner) PSAD - 0.434" Secondary hyperparathyroidism of renal origin Supratherapeutic INR Tubular adenoma of rectum Surgical History History of implantable cardioverter-defibrillator (ICD) placement History of tonsillectomy Hx of colonoscopy Family History Father Heart disease age 73 - NC Uncle Heart disease paternal Grandfather (Paternal) Heart disease Social History Smoking Status: Never smoker Second Hand Exposure: No; Hx Alcohol Use: Yes Alcohol type: beer Alcohol Intake Frequency: Monthly or Less Hx Substance Use: No Preferred Language: Lithuanian Communication Ability: Effective Gardening Supervisor Required: No Beliefs That Will Affect Care: None marital status: Current Living Situation: Alone Feels Safe at Home: Yes Safety Concerns: Feels Safe At This Time Assistive Devices: Cane Physical Exam Physical Exam: General: A&Ox3. NAD. HENT: Normocephalic. Atraumatic. Eyes: PER. Conjunctiva pink, sclera clear. Neck: No carotid bruits. + JVD. Heart: RRR, 66 bpm. Soft systolic murmur. No diastolic murmur. No rub. Lungs: Diminished at the bases. Diffuse expiratory wheeze. Abdomen: +BS. No organomegaly. Extremities: Trace to 1+ left greater than right lower extremity edema. No clubbing. No cyanosis. Limited neurological examination is without focal deficits. Pulses: radial=2/4, posterior tibial=1/4. Results & Data ([facility]) Vital Signs (Past 12 Hours) Vital Signs Temp Pulse Pulse Resp BP BP Pulse Ox 12/24/21 08:14 36.7 C 63 20 139/85 94 12/24/21 06:25 36.5 C 60 18 151/87 H 98 12/24/21 04:20 60 22 95 12/24/21 04:10 60 23 94 12/24/21 04:01 62 25 H 179/90 H 93 12/24/21 04:00 64 24 89 L 12/24/21 03:50 66 92 12/24/21 03:40 62 94 12/24/21 03:31 164/80 H 94 12/24/21 03:30 60 92 12/24/21 03:20 60 21 93 12/24/21 03:10 60 21 93 12/24/21 03:00 60 21 171/93 H 91 12/24/21 02:50 60 23 94 12/24/21 02:46 94 12/24/21 02:40 60 26 H 95 12/24/21 02:31 60 24 173/91 H 94 12/24/21 02:30 60 25 H 90 12/24/21 02:25 63 23 94 12/24/21 02:16 94 12/24/21 01:56 37.6 C H 71 26 H 184/69 H 95 Laboratory Results Laboratory Results - last 24 hr 12/24/21 12/24/21 12/24/21 02:19 02:20 02:20 WBC 10.81 H RBC 4.17 L Hgb 13.7 L Hct 39.8 L MCV 95.4 MCH 32.9 MCHC 34.4 RDW Std Deviation 48.7 H RDW Coeff of Santosh 14.0 Plt Count 183 MPV 12.2 H Immature Gran % (Auto) 0.6 Neut % (Auto) 80.4 Lymph % (Auto) 11.7 [place] % (Auto) 6.8 Eos % (Auto) 0.3 Baso % (Auto) 0.2 Neut # (Auto) 8.70 H Lymph # (Auto) 1.27 [place] # (Auto) 0.73 H Eos # (Auto) 0.03 Baso # (Auto) 0.02 Immature Gran # (Auto) 0.06 H PT INR APTT PTT Ratio ABG pH ABG pCO2 ABG pO2 ABG HCO3 ABG O2 Saturation ABG Base Excess Ayden Test Oxygen Given Sodium Potassium Chloride Carbon Dioxide Anion Gap BUN Creatinine Est Cr Clr Drug Dosing Est GFR ( Amer) Est GFR (Non-Af Amer) BUN/Creatinine Ratio Glucose Calcium Magnesium Total Bilirubin AST ALT Alkaline Phosphatase Troponin I High Sens B-Natriuretic Peptide 948 H Total Protein Albumin Globulin Albumin/Globulin Ratio Urine Color Urine Appearance Urine pH Ur Specific [place] Urine Protein Urine Glucose (UA) Urine Ketones Urine Blood Urine Nitrite Urine Bilirubin Urine Urobilinogen Ur Leukocyte Esterase SARS-CoV-2, RNA, NAAT NEGATIVE 12/24/21 12/24/21 12/24/21 02:20 02:20 04:20 WBC RBC Hgb Hct MCV MCH MCHC RDW Std Deviation RDW Coeff of Santosh Plt Count MPV Immature Gran % (Auto) Neut % (Auto) Lymph % (Auto) [place] % (Auto) Eos % (Auto) Baso % (Auto) Neut # (Auto) Lymph # (Auto) [place] # (Auto) Eos # (Auto) Baso # (Auto) Immature Gran # (Auto) PT 11.2 INR 1.1 APTT 25.1 PTT Ratio 0.9 ABG pH ABG pCO2 ABG pO2 ABG HCO3 ABG O2 Saturation ABG Base Excess Ayden Test Oxygen Given Sodium 138 Potassium 4.4 Chloride 106 Carbon Dioxide 24 Anion Gap 8 BUN 25 H Creatinine 1.55 H Est Cr Clr Drug Dosing 54.6 Est GFR ( Amer) 49.3 Est GFR (Non-Af Amer) 42.5 BUN/Creatinine Ratio 16.1 Glucose 166 H Calcium 8.6 Magnesium 2.2 Total Bilirubin 0.9 AST 28 ALT 43 Alkaline Phosphatase 91 Troponin I High Sens 61.9 H* B-Natriuretic Peptide Total Protein 6.5 Albumin 3.8 Globulin 2.7 Albumin/Globulin Ratio 1.4 Urine Color Yellow Urine Appearance Clear Urine pH 6.0 Ur Specific [place] 1.009 Urine Protein Negative Urine Glucose (UA) Negative Urine Ketones Negative Urine Blood Negative Urine Nitrite Negative Urine Bilirubin Negative Urine Urobilinogen Negative Ur Leukocyte Esterase Negative SARS-CoV-2, RNA, NAAT 12/24/21 12/24/21 12/24/21 04:35 04:35 08:02 WBC RBC Hgb Hct MCV MCH MCHC RDW Std Deviation RDW Coeff of Santosh Plt Count MPV Immature Gran % (Auto) Neut % (Auto) Lymph % (Auto) [place] % (Auto) Eos % (Auto) Baso % (Auto) Neut # (Auto) Lymph # (Auto) [place] # (Auto) Eos # (Auto) Baso # (Auto) Immature Gran # (Auto) PT INR APTT PTT Ratio ABG pH 7.45 ABG pCO2 41 ABG pO2 199 H ABG HCO3 29 H ABG O2 Saturation 100.0 H ABG Base Excess 4.1 H Ayden Test Pos Oxygen Given 4L Sodium Potassium Chloride Carbon Dioxide Anion Gap BUN Creatinine Est Cr Clr Drug Dosing Est GFR ( Amer) Est GFR (Non-Af Amer) BUN/Creatinine Ratio Glucose Calcium Magnesium Total Bilirubin AST ALT Alkaline Phosphatase Troponin I High Sens 72.7 H* D 78.9 H* B-Natriuretic Peptide Total Protein Albumin Globulin Albumin/Globulin Ratio Urine Color Urine Appearance Urine pH Ur Specific [place] Urine Protein Urine Glucose (UA) Urine Ketones Urine Blood Urine Nitrite Urine Bilirubin Urine Urobilinogen Ur Leukocyte Esterase SARS-CoV-2, RNA, NAAT Diagnostic Findings Device interrogation on December 04, 2021 demonstrated appropriate function. Remaining longevity: 7 months. 7 short episodes of AT/AF. BiV paced 97.5%. OptiVol fluid index below threshold. Chest x-ray on admission revealed interstitial thickening suggestive of interstitial pulmonary edema and bibasilar opacities which could reflect atelectasis or an infectious process. Radiographic follow-up to ensure resolution is recommended. EKG on admission revealed a AV dual-paced rhythm Telemetry: Paced in the 60's (1) CKD (chronic kidney disease) stage 3, GFR 30-59 ml/min Chronic kidney disease stage 3 subtype: unspecified whether 3a or 3b Qualified Code(s): N18.30 - Chronic kidney disease, stage 3 unspecified (2) Congestive heart failure Heart failure chronicity: acute Heart failure type: unspecified Qualified Code(s): I50.9 - Heart failure, unspecified
[2021-12-25] MEDS: LEVOTHYROXINE SODIUM 25 MCG TABLET PO SCH (05:50)
[2021-12-25] MEDS: HEPARIN SOD 5,000 UNIT/0.5 ML VIAL SQ SCH ×2 (05:50→16:02)
[2021-12-25 07:47] LABS: Basophils # (auto) 0.01 K/uL (0-0.2); Basophils % (auto) 0.2 %; Eosinophils # (auto) 0.08 K/uL (0-0.5); Eosinophils % (auto) 1.6 %; Hemoglobin 12.1 g/dL (14.0-18.0); Immature Granulocytes # (auto) 0.02 K/uL (0.00-0.02); Immature Granulocytes % (auto) 0.4 %; Lymphocytes # (auto) 1.17 K/uL (1.2-3.4); Lymphocytes % (auto) 22.9 %; Mean Corpuscular Hemoglobin 32.3 pg (25-34); Mean Corpuscular Hgb Conc 33.6 g/dL (32-36); Mean Platelet Volume 12.3 fL (7.4-10.4); Monocytes # (auto) 0.42 K/uL (0.11-0.59); Monocytes % (auto) 8.2 %; Neutrophils # (auto) 3.42 K/uL (1.4-6.5); Neutrophils % (auto) 66.7 %; Platelet Count 138 K/uL (130-400); RDW Coefficient of Variation 14.1 % (11.5-14.5); RDW Standard Deviation 49.3 fL (36.4-46.3); Red Blood Count 3.75 M/uL (4.7-6.1); White Blood Count 5.12 K/uL (4.8-10.8)
[2021-12-25 08:08] LABS: Anion Gap 6 (3-11); BUN Creatinine Ratio 16.3 (10-20); Blood Urea Nitrogen 30 mg/dl (6-23); Calcium 8.3 mg/dl (8.5-10.1); Carbon Dioxide 28 mmol/L (21-32); Chloride 105 mmol/L (98-107); Creatinine Clr Calc Pharmacy 44.2 ml/min; Est GFR (African American) 40.1 ml/min; Est GFR (Non-African American) 34.6 ml/min; Glucose 94 mg/dl (70-99(Fasting)); Sodium 139 mmol/L (136-145)
[2021-12-25] MEDS ORDERED: lisinopril 2.5 MG TAB PO SCH (09:00)
--- NOTE | 2021-12-25 09:05 | Cardiology Progress Note ---
Date of Service December 25, 2021 Assessment & Plan (1) Acute hypoxemic respiratory failure: (2) Congestive heart failure: (3) History of implantable cardioverter-defibrillator (ICD) placement: (4) Chronic systolic heart failure: (5) CKD (chronic kidney disease) stage 3, GFR 30-59 ml/min: (6) NICM (nonischemic cardiomyopathy): (7) PAF (paroxysmal atrial fibrillation): (8) Iron deficiency anemia: (9) Ventricular tachycardia: (10) Elevated troponin: Plan: Acute hypoxemic respiratory failure Acute decompensated right greater than left biventricular congestive heart failure Elevated high sensitivity troponin Dilated nonischemic cardiomyopathy with history of severe LV dysfunction initially diagnosed in October 2009 Status post biventricular pacemaker defibrillator implantation on 09/04/2010, generator replacement on 10/28/2014. Paroxysmal atrial fibrillation Frequent ventricular ectopy with resultant past reduction in biventricular pacemaker function History of fast ventricular tachycardia status post appropriate device discharges as detailed above. Amiodarone initiated January 20, 2020 Patient hospitalized July 01, 2020 to July 02, 2020 with undefined rectal bleeding, symptomatic anemia requiring transfusion of 2 units packed red blood cells. Anticoagulation (Coumadin) held. Endoscopy declined. Chart history of MGUS and iron deficiency anemia Stage III-IV chronic kidney disease Hypertension Dyslipidemia History of gout RECOMMENDATIONS: Strict I/Os, daily weights, CHF education, fluid restriction 60 mg IV this morning then transition back to outpatient oral diuretic regimen. PA and lateral chest x-ray pending. Increase activity as tolerated. Close outpatient follow-up. Admission and Anticipated Discharge Date Admission Date: December 24, 2021 Supervising Physician Co-Signing Physician Notes I seen and examined the patient. I reviewed the medical record and discussed the case with Mr. Thompson. I agree with the plan as outlined above. The patient is anxious to go home. We will follow-up with him as an outpatient. Subjective Patient seen and examined. Chart, medications, and telemetry reviewed. "I'm ready to go home." Breathing has improved, back to baseline. No chest pain,palpitations, abdominal bloating, orthopnea, or PND. Left greater than right lower extremity edema has improved. No dizziness, near syncope, or syncope. I/O's are negative 2,410 mL's overall. Weight on admission was 125.3 kg, 116 kg today. December 24, 2021 TTE Interpretation Summary ([facility], Dr. Zambrano): Moderate concentric LVH. Hypokinesis of the basilar and mid inferior posterior wall segments. EF 50- 55%. Normal RV systolic function. Mildly dilated LA. Normal RA. Trace AI. Trace pulmonic valve regurgitation. Mild to moderate MR. Essentially unchanged from the previous study. Review of Systems Review of Systems: Complete Review of Systems is as stated above, negative, or noncontributory. Physical Exam Physical Exam: General: A&Ox3. NAD. HENT: Normocephalic. Atraumatic. Eyes: PER. Conjunctiva pink, sclera clear. Neck: No carotid bruits. + JVD. Heart: RRR, 64 bpm. Soft systolic murmur. No diastolic murmur. No rub. Lungs: Diminished at the bases. Diffuse expiratory wheeze. Abdomen: +BS. No organomegaly. Extremities: Minimal left greater than right lower extremity edema. No clubbing. No cyanosis. Limited neurological examination is without focal deficits. Pulses: radial=2/4, posterior tibial=1/4. Results & Data ([facility]) Vital Signs (Past 12 Hours) Vital Signs Temp Pulse Pulse Resp BP BP Pulse Ox 12/25/21 07:16 60 12/25/21 07:00 37 C 61 18 143/85 H 93 12/25/21 03:06 36.6 C 66 18 127/76 94 12/25/21 00:57 60 12/24/21 23:15 36.5 C 60 18 124/68 93 Laboratory Results Laboratory Results - last 24 hr 12/24/21 12/25/21 12/25/21 08:02 07:00 07:00 WBC 5.12 RBC 3.75 L Hgb 12.1 L Hct 36.0 L MCV 96.0 MCH 32.3 MCHC 33.6 RDW Std Deviation 49.3 H RDW Coeff of Santosh 14.1 Plt Count 138 MPV 12.3 H Immature Gran % (Auto) 0.4 Neut % (Auto) 66.7 Lymph % (Auto) 22.9 [place] % (Auto) 8.2 Eos % (Auto) 1.6 Baso % (Auto) 0.2 Neut # (Auto) 3.42 Lymph # (Auto) 1.17 L [place] # (Auto) 0.42 Eos # (Auto) 0.08 Baso # (Auto) 0.01 Immature Gran # (Auto) 0.02 Sodium 139 Potassium TNP Chloride 105 Carbon Dioxide 28 Anion Gap 6 BUN 30 H Creatinine 1.84 H Est Cr Clr Drug Dosing 44.2 Est GFR ( Amer) 40.1 Est GFR (Non-Af Amer) 34.6 BUN/Creatinine Ratio 16.3 Glucose 94 Calcium 8.3 L Troponin I High Sens 78.9 H* 12/25/21 08:28 WBC RBC Hgb Hct MCV MCH MCHC RDW Std Deviation RDW Coeff of Santosh Plt Count MPV Immature Gran % (Auto) Neut % (Auto) Lymph % (Auto) [place] % (Auto) Eos % (Auto) Baso % (Auto) Neut # (Auto) Lymph # (Auto) [place] # (Auto) Eos # (Auto) Baso # (Auto) Immature Gran # (Auto) Sodium Potassium 3.7 Chloride Carbon Dioxide Anion Gap BUN Creatinine Est Cr Clr Drug Dosing Est GFR ( Amer) Est GFR (Non-Af Amer) BUN/Creatinine Ratio Glucose Calcium Troponin I High Sens (1) CKD (chronic kidney disease) stage 3, GFR 30-59 ml/min Chronic kidney disease stage 3 subtype: unspecified whether 3a or 3b Qualified Code(s): N18.30 - Chronic kidney disease, stage 3 unspecified (2) Congestive heart failure Heart failure chronicity: acute Heart failure type: unspecified Qualified Code(s): I50.9 - Heart failure, unspecified
[2021-12-25] MEDS ORDERED: FUROSEMIDE 40 MG/4 ML VIAL IV ONE (09:12)
[2021-12-25] MEDS ORDERED: POTASSIUM CHLORIDE CRTAB 20 MEQ TABCR PO ONE (09:13)
--- NOTE | 2021-12-25 09:21 | XRay Report ---
XR chest 2V PA/lateral CLINICAL HISTORY: sob. amiodarone TECHNIQUE: 2 views of the chest were obtained. Comparison: Comparison is made to chest radiograph 12/24/2021 FINDINGS: Pacemaker defibrillator is seen. The cardiomediastinal silhouette is stable. Improving faint airspace opacities in the bilateral lower lungs. Trace bilateral pleural effusions are seen. IMPRESSION: 1. Improving faint bibasilar airspace opacities may represent improving atelectasis and/or pneumonia . 2. Interval improvement in pulmonary edema. 3. Trace bilateral pleural effusions. ACT 112: Negative or not required by law. Electronically signed by: Jeremiah Overton M.D. 12/25/2021 9:20 AM
[2021-12-25] MEDS: AMIODARONE 200 MG TAB PO SCH (09:53)
[2021-12-25] MEDS: allopurinoL 100 MG TAB PO SCH (09:53)
[2021-12-25] MEDS: ASPIRIN 81 MG ECTAB PO SCH (09:54)
[2021-12-25] MEDS: CEROVITE ADV FORMULA TAB PO SCH (09:54)
[2021-12-25] MEDS: METOPROLOL SUCC 50MG EXT REL TAB PO SCH (09:54)
--- NOTE | 2021-12-25 12:37 | Hospitalist Progress Note ---
Date of Service December 25, 2021 Assessment & Plan (1) Acute hypoxemic respiratory failure: Plan: Secondary to decompensated heart failure hx chronic diastolic heart failure (EF 50 to 54%, TTE 2020) history nonischemic cardiomyopathy status post PPM/ICD ? Secondary to uncontrolled BP ? Secondary to progression of valvular heart disease (mild AR/TR, moderate TR 2020 TTE) Demand ischemia in the setting of acute hypoxemic respiratory failure and acute systolic CHF Troponin elevation secondary to above trop level 60s to 70s currently on RA Cardiology consulted - pt received IV lasix, ok to transition to p.o. regimen in the afternoon, plan for close outpatient follow-up Strict I/Os, daily weights, CHF education, fluid restriction for now Echo obtained Moderate concentric LVH. Hypokinesis of the basilar and mid inferior posterior wall segments. EF 50 to 55%. RV systolic function is normal. LA is mildly dilated. RA size is normal. Trace aortic regurg. Trace pulmonic valvular regurg. There is mild to moderate mitral regurg. Essentially unchanged from the previous study. Follow up CXR this AM - much improved mild JELENA Cr increased - plan to switch back to oral diuretics 12/25 Clinically patient improved, currently on RA - plan for DC and close outpt follow up Chronic conditions history of VT on amiodarone PAF not on anticoagulation secondary to GI bleed, patient NSR hyperlipidemia, not on statin Rx secondary to abnormal LFTs from amiodarone hx MGUS prediabetes, hemoglobin A1c of 6.30 Oct 2021 prostate cancer s/p radiation therapy, patient follows with [facility] chronic anemia, hemoglobin at baseline DVT prophylaxis. Heparin subcu DNR Admission and Anticipated Discharge Date Admission Date: December 24, 2021 Subjective Follow-up for hypoxic respiratory failure, secondary to chf exacerbation Currently patient sitting up in bed, in no acute distress He is currently on room air, says that he feels much better He is inquiring about going home No fevers, chills, chest pain, palpitation Denies cough Seen by cardiology, plan for IV Lasix this morning, and then close outpatient follow-up Review of Systems Review of Systems: All systems reviewed & are unremarkable except as noted in Subjective Physical Exam Physical Exam: GENERAL: elderly obese M, minimal respiratory distress, on RA HEENT: NC/AT. Alopecia, pale palpebral conjunctivae NECK : Supple CHEST : CTAB HEART : RRR, no obvious murmurs ABDOMEN: soft, + bowel sounds, some distention, nontender EXTREMITIES : Bilateral LE swelling, no LE tenderness SKIN: warm, dry NEUROLOGIC : alert oriented, answering questions appropriately, no facial asymmetry,moves extremities Results & Data Results & Data ([facility]) Vital Signs (Past 12 Hours) Vital Signs Temp Pulse Pulse Resp BP BP Pulse Ox 12/25/21 10:46 37.7 C H 68 20 157/85 H 93 12/25/21 09:52 60 133/76 12/25/21 07:16 60 12/25/21 07:00 37 C 61 18 143/85 H 93 12/25/21 03:06 36.6 C 66 18 127/76 94 12/25/21 00:57 60 Laboratory Results 12/25/21 12/25/21 12/25/21 Range/Units 08:28 07:00 07:00 WBC 5.12 (4.8-10.8) K/uL RBC 3.75 L (4.7-6.1) M/uL Hgb 12.1 L (14.0-18.0) g/dL Hct 36.0 L (42-52) % MCV 96.0 (80-100) fL MCH 32.3 (25-34) pg MCHC 33.6 (32-36) g/dL RDW Std Deviation 49.3 H (36.4-46.3) fL RDW Coeff of Santosh 14.1 (11.5-14.5) % Plt Count 138 (130-400) K/uL MPV 12.3 H (7.4-10.4) fL Immature Gran % (Auto) 0.4 % Neut % (Auto) 66.7 % Lymph % (Auto) 22.9 % [place]w % (Auto) 8.2 % Eos % (Auto) 1.6 % Baso % (Auto) 0.2 % Neut # (Auto) 3.42 (1.4-6.5) K/uL Lymph # (Auto) 1.17 L (1.2-3.4) K/uL [place]w # (Auto) 0.42 (0.11-0.59) K/uL Eos # (Auto) 0.08 (0-0.5) K/uL Baso # (Auto) 0.01 (0-0.2) K/uL Immature Gran # (Auto) 0.02 (0.00-0.02) K/uL Sodium 139 (136-145) mmol/L Potassium 3.7 TNP Chloride 105 (98-107) mmol/L Carbon Dioxide 28 (21-32) mmol/L Anion Gap 6 (3-11) BUN 30 H (6-23) mg/dl Creatinine 1.84 H (0.6-1.4) mg/dl Est Cr Clr Drug Dosing 44.2 ml/min Est GFR ( Amer) 40.1 ml/min Est GFR (Non-Af Amer) 34.6 ml/min BUN/Creatinine Ratio 16.3 (10-20) Glucose 94 (70-99(Fasting)) mg/dl Calcium 8.3 L (8.5-10.1) mg/dl Medications Administered Current Inpatient Medications Acetaminophen (Acetaminophen 325 Mg Tab) 650 mg PO Q4H PRN PRN Reason: Pain or Fever Stop: 01/23/22 06:21 Last Admin: 12/24/21 19:56 Dose: 650 mg Documented by: Allopurinol (Allopurinol 100 Mg Tab) 200 mg PO DAILY KIAN Stop: 01/23/22 08:59 Last Admin: 12/25/21 09:53 Dose: 200 mg Documented by: Amiodarone HCl (Amiodarone 200 Mg Tab) 200 mg PO BID KIAN Stop: 01/23/22 08:59 Last Admin: 12/25/21 09:53 Dose: 200 mg Documented by: Aspirin (Aspirin 81 Mg Ectab) 81 mg PO DAILY KIAN Stop: 01/23/22 08:59 Last Admin: 12/25/21 09:54 Dose: 81 mg Documented by: Heparin Sodium (Porcine) (Heparin Sod 5,000 Unit/0.5 Ml Vial) 5,000 units SQ Q8 KIAN Stop: 01/23/22 06:21 Last Admin: 12/25/21 05:50 Dose: 5,000 units Documented by: Hydromorphone HCl (Hydromorphone Inj 0.5 Mg/0.5 Ml Syr) 0.5 mg IV Q3H PRN PRN Reason: Pain Stop: 01/07/22 06:21 Promethazine HCl 12.5 mg/ (Sodium Chloride) 50.5 mls @ 202 mls/hr IV Q6H PRN PRN Reason: Nausea And Vomiting Stop: 01/23/22 06:21 Levothyroxine Sodium (Levothyroxine Sodium 25 Mcg Tablet) 37.5 mcg PO DAILYBB [facility] Stop: 01/23/22 06:29 Last Admin: 12/25/21 05:50 Dose: 37.5 mcg Documented by: Lisinopril (Lisinopril 2.5 Mg Tab) 2.5 mg PO DAILY [facility] Stop: 01/24/22 08:59 Last Admin: 12/25/21 09:53 Dose: 2.5 mg Documented by: Metoprolol Succinate (Metoprolol Succ 50mg Ext Rel Tab) 50 mg PO BID [facility] Stop: 01/23/22 08:59 Last Admin: 12/25/21 09:54 Dose: 50 mg Documented by: Multivitamins/Minerals (Cerovite Adv Formula Tab) 1 tab PO DAILY [facility] Stop: 01/23/22 08:59 Last Admin: 12/25/21 09:54 Dose: 1 tab Documented by: Nitroglycerin (Nitroglycerin Sl 0.4 Mg/Tab Tab) 0.4 mg SL UD PRN PRN Reason: Chest Pain Stop: 01/23/22 06:21 Tramadol HCl (Tramadol Hcl 50 Mg Tablet) 25 - 50 mg PO Q4H PRN PRN Reason: Pain Stop: 01/23/22 06:21
--- NOTE | 2021-12-25 15:24 | Discharge Summary ---
Date of Service December 25, 2021 Admission HPI Per Admitting Provider History obtained from patient and records. Medical history significant for chronic diastolic heart failure (EF 50 to 54%, TTE 2020), history nonischemic cardiomyopathy status post PPM/ICD, valvular heart disease (mild AR/TR, moderate TR recent echo), history of VT on amiodarone, PAF not on anticoagulation secondary to GI bleed, hypertension, hyperlipidemia, MGUS, CRI (baseline creatinine 2s), prediabetes, prostate cancer status post radiation therapy, chronic anemia (baseline hemoglobin of 13). Last confinement June 2020 for GI bleed. Patient declined endoscopic procedure. Coumadin stopped on discharge. Patient history of worsening shortness of breath mostly exertion. No chest pain. Usual dry cough symptoms attributed to postnasal drip. No known recent sick contacts. Patient completed COVID-19 vaccination. With retention, weight gain and leg swelling as per patient. Lasix administered at the ER. 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 Admission Exam Per Admitting Provider GENERAL: Comfortable, pleasant, obese, minimal respiratory distress SKIN: Pallor, warm HEENT: Alopecia, pale palpebral conjunctivae, no ptosis, moist buccal mucosa, nasal cannula in place NECK : Supple, short neck, no tenderness CHEST : Decreased breath sounds, expiratory wheezes, no tenderness HEART : RRR, no obvious murmurs ABDOMEN: Some distention, nontender EXTREMITIES : Bilateral LE swelling, no LE tenderness, no other conspicuous deformities noted NEUROLOGIC : Coherent, no facial asymmetry, no other gross focality Principal Diagnosis Respiratory failure with hypoxia Acute CHF exacerbation Discharge Exam GENERAL: elderly obese M, minimal respiratory distress, on RA HEENT: NC/AT. Alopecia, pale palpebral conjunctivae NECK : Supple CHEST : CTAB HEART : RRR, no obvious murmurs ABDOMEN: soft, + bowel sounds, some distention, nontender EXTREMITIES : Bilateral LE swelling, no LE tenderness SKIN: warm, dry NEUROLOGIC : alert oriented, answering questions appropriately, no facial asymmetry,moves extremities Discharge Data Allergies Allergy/AdvReac Type Severity Reaction Status Date / Time CALLIE Inhibitors AdvReac Intermediate COUGH Verified 12/24/21 02:32 Sulfa (Sulfonamide AdvReac Intermediate DIARRHEA Verified 12/24/21 02:32 Antibiotics) Consultations 12/24/21 03:26 ED Decision to Admit Stat 12/24/21 06:22 Consult Cardiology Routine Hospital Course (1) Acute hypoxemic respiratory failure: Secondary to decompensated heart failure hx chronic diastolic heart failure (EF 50 to 54%, TTE 2020) history nonischemic cardiomyopathy status post PPM/ICD ? Secondary to uncontrolled BP ? Secondary to progression of valvular heart disease (mild AR/TR, moderate TR 2020 TTE) Demand ischemia in the setting of acute hypoxemic respiratory failure and acute systolic CHF Troponin elevation secondary to above trop level 60s to 70s currently on RA Cardiology consulted - pt received IV lasix, ok to transition to p.o. regimen in the afternoon, plan for close outpatient follow-up Strict I/Os, daily weights, CHF education, fluid restriction for now Echo obtained Moderate concentric LVH. Hypokinesis of the basilar and mid inferior posterior wall segments. EF 50 to 55%. RV systolic function is normal. LA is mildly dilated. RA size is normal. Trace aortic regurg. Trace pulmonic valvular regurg. There is mild to moderate mitral regurg. Essentially unchanged from the previous study. Follow up CXR this AM - much improved mild JELENA Cr increased - stop IV lasix, plan to switch back to oral diuretics 12/25 Clinically patient improved, currently on RA - plan for DC and close outpt follow up Chronic conditions history of VT on amiodarone PAF not on anticoagulation secondary to GI bleed, patient NSR hyperlipidemia, not on statin Rx secondary to abnormal LFTs from amiodarone hx MGUS prediabetes, hemoglobin A1c of 6.30 Oct 2021 prostate cancer s/p radiation therapy, patient follows with [facility] chronic anemia, hemoglobin at baseline Total Time Total Time Spent Total Time Spent (In Minutes): 40 Discharge Plan Discharge Items Patient Disposition: Home - Self-Care Reason For Visit: RESP FAILURE Discharge Diagnosis: Respiratory failure with hypoxia Acute CHF exacerbation Activity: Per Instructions section Non-emergency contact: Primary Care Provider and Sieve Repairer Call non-emergency contact if: you have any medication questions and your symptoms worsen Follow-up/Referrals: Lauro Thompson [Physician Negative Developer] - (Date & Time 01/09/2022 9:30 AM Provider Lauro Thompson PA-C Department Cardiology, [facility] ) Ioana Son DO [Primary Care Provider] - (Date & Time 12/28/2021 11:50 AM Provider Ioana Son DO Department Family Medicine [facility] ) Diet: Heart Healthy and Low Sodium (2gm) Fluids: 2000ml (8 cups) Addtl Attending Provider Instructions: Follow-up with your primary care doctor and blow up operator. The appointments were scheduled for you, as above. Make sure to weigh yourself daily and record these numbers. Recommend low- sodium diet, and fluid restriction to 2 L, as above. You may benefit from using incentive spirometer for next couple of days, and taking guaifenesin/Mucinex Addtl Autographer Provider Instructions: Call your Primary Care doctor if any of the following symptoms or problems start or get worse: * Shortness of breath or difficulty breathing * Wake up at night short of breath * Chest pain * Cough * Swelling of your hands, feet, or legs * More fatigued or tired with your normal activity * Palpitations - sudden fast heart beats WEIGHT * Weigh yourself every morning after using the bathroom. * Use the same scale. * Wear the same amount of clothing. * Write your weight down on a chart. * Call your Primary Care doctor if you gain more than 2-3 pounds in 1-2 days. MEDICATIONS * Use this discharge instruction sheet for medication instructions. * Take your medications at the time your doctor ordered. * Do not skip a dose of your medicines. * If you miss a dose of medicine, take it as soon as possible, but DO NOT DOUBLE A DOSE. * Read your medicine information when you get home. * Know all of the side effects of your medicine. If in doubt, ask your pharmacist * Call your Primary Care doctor's office if you have any side effects. * Be sure all of your doctors know what medicine and herbs you take (including cold, flu, and herbal medicine). Take the following with you to your follow-up doctor appointments: * Weight Chart * Medication List * List of questions Do not drink excessive alcohol, beer or wine. Pending Studies at Discharge: No Stand-Alone Forms: My Advizzer, Smoking Cessation Medications and DC Order Prescriptions: New guaifenesin [Mucinex] 600 mg Tablet Extended Release 12hr 600 mg PO Q12 Qty: 10 RF: 0 Continued levothyroxine 25 mcg tablet 37.5 mcg PO QAM RF: 0 furosemide 40 mg tablet 80 mg PO BID RF: 0 allopurinol 100 mg tablet 200 mg PO DAILY RF: 0 aspirin 81 mg Tablet,Delayed Release (Dr/Ec) 81 mg PO DAILY RF: 0 amiodarone 200 mg tablet 200 mg PO BID 60 Days Qty: 120 RF: 3 metoprolol succinate 50 mg tablet extended release 24 hr 50 mg PO BID 60 Days Qty: 120 RF: 3 triamcinolone acetonide 0.1 % Cream 1 applic TOPICAL BID PRN (Reason: AFFECTED AREA) RF: 0 lisinopril 5 mg tablet 2.5 mg PO DAILY RF: 0 Centrum Silver 0.4 mg-300 mcg- 250 mcg Tablet 1 tab PO DAILY RF: 0 Discharge Orders: Discharge Order (Routine); Ordered 12/25/21 Ordered By: Tulio Guerrier Admission Data Admit Date/Time: 12/24/21 04:16 Attending Provider: Tulio Guerrier Admit Provider: Yony Brown Primary Care Provider: Ioana Son Other Providers: Yony Brown ; Robert Mg ; Lonnie Miner ; Valente Hall ; Edmundo Roblero ; Dale Zambrano ; Lauro Thompson ; Abida Grover ; Savita Huang ; Amelie Storm ; Scooter Brady
[2021-12-25] MEDS ORDERED: guaiFENesin 600 MG TABCR PO SCH (21:00)
== END 2021-12-25 16:23 | disposition home or self-care (01) | DRG 291 ==
LOC: ED 02:05 → 2S 04:16 → INTOOBSV 04:16 → 2S 05:56

== ENCOUNTER 2022-01-29 14:09 | Inpatient (IN) ==
[2022-01-29] MEDS ORDERED: SODIUM CHLORIDE 0.9% 500 ML IV STA (14:32)
--- NOTE | 2022-01-29 14:44 | Emergency Department Note ---
Impression & Plan Acute renal failure, Hypokalemia ED Provider Note NAME: MANOHAR ECHEVARRIA AGE: 76 SEX: M : 1945 ARRIVES VIA: Walk-In INFORMANT: Patient, ED PROVIDER(S): Gary Perkins DO CHIEF COMPLAINT: Abnormal creatinine HPI: The patient is a 76-year-old male who presented to the emergency department for an evaluation of possible renal failure. The patient was seen in our facility recently. He was discharged and started on some new medications. The patient has a history of volume overload. He has noticed that he has had some w eight loss. He normally takes Lasix. He was started on a new fluid pill and was set to follow-up with his primary cardiology group this week. The patient had labs done and was called and told to come to the emergency department because he might be in renal failure. He denies having any chest pain or difficulty breathing. He denies having any nausea or vomiting. He denies having any abdominal pain or back pain. He does complain of increased urine output. He denies having any dysuria. ROS: See above HPI for pertinent positives & negatives. A total of 10 systems reviewed and were otherwise negative. PAST MEDICAL HISTORY: See Below PAST SURGICAL HISTORY: See Below FAMILY HISTORY: See Below SOCIAL HISTORY: See Below HOME MEDICATIONS: See Below ALLERGIES: See Below VITALS: See Below PHYSICAL EXAMINATION: GENERAL: Patient is awake alert in no acute distress patient is resting comfortably and showing no signs of anxiety EYES: The conjunctivae are clear. The pupils are round and reactive. EARS, NOSE, MOUTH AND THROAT: The nose is without any evidence of any deformity. Mucous membranes are moist. Tongue is midline. NECK: The neck is nontender and supple. RESPIRATORY: Normal respiratory effort is noted there is no evidence of wheezing rhonchi or rales CARDIOVASCULAR: Regular rate and rhythm noted there no murmurs rubs or gallops normal S1 normal S2. GASTROINTESTINAL: The abdomen is soft. Abdomen is nontender. MUSCULOSKELETAL/EXTREMITIES: There is no evidence of gross deformity full range of motion is noted in the hips and shoulders. SKIN: Skin is warm and dry. Pedal edema was noted bilaterally. Pulses are symmetric in both feet. NEUROLOGIC: Patient is awake alert and oriented x3 MEDICAL DECISION MAKING: The patient is a 76-year-old male who presented to the emergency department for weight loss and abnormal labs. The patient has a history of heart failure. Had some changes to his outpatient medication regimen. He noticed weight loss. He had some follow-up labs obtained today which showed his kidney function was elevated compared to baseline. He was sent to the emergency department for further evaluation. The patient was treated with IV fluids in the emergency department. He was also given IV potassium replacement as his potassium was low likely secondary to his medications. I discussed the patient's condition with the on-call [facility]. They have agreed to evaluate the patient in the emergency department for further management and disposition. Triage Nursing notes reviewed. Prior medical records reviewed Vital Signs: reviewed and remarkable for no significant abnormalities Differential diagnosis: Infection, dehydration, metabolic abnormality, hypo/hyperglycemia, electrolyte disturbance, anemia, hypoxia, cardiac sources, intracerebral event, toxicologic, neurologic, as well as other pathologies. ER treatment provided: See below Diagnostics interpreted by me: ECG: EKG was obtained in the emergency department. My interpretation is dual- chamber pacemaker at 60 bpm. No [place] beats were noted. Bundle-branch block pattern was appreciated. This was compared to a tracing from December 24, 2021. No changes were noted. Cardiac Monitoring: An order was placed for continuous cardiac monitoring. The monitor shows a rate of 65 bpm with sinus rhythm Laboratory studies: As stated above and show below. Imaging studies: See below Consultation(s): I discussed this case with Dr. Moreno who is on for the [facility] group. Past Med/Surg History Medical History (Updated 01/29/22 @ 18:18 by Mira Jordan MD) (HFpEF) heart failure with preserved ejection fraction Cardiomyopathy Chronic anticoagulation Chronic systolic heart failure CKD (chronic kidney disease) stage 3, GFR 30-59 ml/min CKD (chronic kidney disease), stage IV Dyslipidemia GI bleed Gout HTN (hypertension) Iron deficiency anemia MGUS (monoclonal gammopathy of unknown significance) NICM (nonischemic cardiomyopathy) Pacemaker PAF (paroxysmal atrial fibrillation) Prediabetes Prostate cancer (03/15/13) "STAGING: Prostate, adenocarcinoma, meenu 3 + 4, PSA 17.38, cT2b, group IIB Prostate gland size - 40 cc (by TR[facility], Dr. Joyner) initially followed with active surveillance PSAD - 0.434 TREATMENT: 1. 6 months of hormonal suppression 2. Status post completion of IMRT/IGRT 09/02/2016 received 8100 cGy" On 04/18/16 15:06 Lynne Henao wrote "STAGING: Prostate, adenocarcinoma, meenu 3 + 4, PSA 17.38, cT2b, group IIB Prostate gland size - 40 cc (by [facility], Dr. 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 Outside Required: No Beliefs That Will Affect Care: None marital status: Current Living Situation: Alone Feels Safe at Home: Yes Assistive Devices: None Allergies Allergies Allergy/AdvReac Type Severity Reaction Status Date / Time CALLIE Inhibitors AdvReac Intermediate COUGH Verified 01/29/22 17:14 Sulfa (Sulfonamide AdvReac Intermediate DIARRHEA Verified 01/29/22 17:14 Antibiotics) Home Meds Home Medications Medication Instructions Recorded Confirmed allopurinol 100 mg tablet 200 mg PO DAILY 06/05/20 01/29/22 aspirin 81 mg tablet,delayed 81 mg PO DAILY 06/05/20 01/29/22 release furosemide 40 mg tablet 80 mg PO BID 06/05/20 01/29/22 levothyroxine 25 mcg tablet 37.5 mcg PO QAM 06/05/20 01/29/22 lisinopril 5 mg tablet 2.5 mg PO DAILY 12/24/21 01/29/22 [id number]-zjn-hxyte acid 0.4 1 tab PO DAILY 12/24/21 01/29/22 mg-lycopene 300 mcg-lutein 250 mcg tablet (Centrum Silver) triamcinolone acetonide 0.1 % 1 applic topical BID PRN AFFECTED 12/24/21 01/29/22 topical cream AREA metolazone 2.5 mg tablet 2.5 mg PO 3XWK 01/29/22 01/29/22 potassium chloride 10 mEq 30 meq PO 3XWK 01/29/22 01/29/22 capsule,extended release Previous Rx's Medication Instructions Recorded amiodarone 200 mg tablet 200 mg PO BID 60 days #120 tabs 06/07/20 metoprolol succinate 50 mg 50 mg PO BID 60 days #120 tabs 06/07/20 tablet,extended release 24 hr Results & Data (ED) Vital Signs Vital Signs - 24 hr 01/29/22 14:12 01/29/22 14:09 01/29/22 14:09 Temperature 36.7 C Temperature Source Temporal Artery Scan Pulse Rate 73 60 Pulse Rate [Apical] Pulse Rate from SpO2 Sensor Pulse Rhythm Regular Respiratory Rate 18 19 Respiratory Effort / Characteristics Non-Labored Spontaneous Respiratory Depth Normal Respiratory Pattern Regular Blood Pressure 106/64 Blood Pressure [Left Arm] Blood Pressure Mean 78 Blood Pressure Mean [Left Arm] Blood Pressure Position Sitting Pulse Oximetry 94 98 98 Oxygen Delivery Method Room Air Room Air Room Air Oxygen Flow Rate Sepsis Recent Fever Within 48 Hours No Sepsis New/Unexplained Change in Mental Status No Sepsis Action Taken by Nursing No Action Required 01/29/22 14:32 01/29/22 15:50 01/29/22 16:00 Temperature Temperature Source Pulse Rate 60 60 Pulse Rate [Apical] Pulse Rate from SpO2 Sensor 61 Pulse Rhythm Regular Respiratory Rate 19 14 Respiratory Effort / Characteristics Respiratory Depth Respiratory Pattern Blood Pressure 109/61 Blood Pressure [Left Arm] Blood Pressure Mean 77 Blood Pressure Mean [Left Arm] Blood Pressure Position Pulse Oximetry 98 93 Oxygen Delivery Method Room Air Oxygen Flow Rate 0 Sepsis Recent Fever Within 48 Hours Sepsis New/Unexplained Change in Mental Status Sepsis Action Taken by Nursing 01/29/22 16:00 01/29/22 16:30 01/29/22 16:30 Temperature Temperature Source Pulse Rate 60 60 Pulse Rate [Apical] Pulse Rate from SpO2 Sensor 60 69 Pulse Rhythm Respiratory Rate 13 14 Respiratory Effort / Characteristics Respiratory Depth Respiratory Pattern Blood Pressure 119/62 Blood Pressure [Left Arm] Blood Pressure Mean 81 Blood Pressure Mean [Left Arm] Blood Pressure Position Pulse Oximetry 94 63 L Oxygen Delivery Method Oxygen Flow Rate Sepsis Recent Fever Within 48 Hours Sepsis New/Unexplained Change in Mental Status Sepsis Action Taken by Nursing 01/29/22 17:00 01/29/22 17:30 01/29/22 17:30 Temperature Temperature Source Pulse Rate 62 62 Pulse Rate [Apical] Pulse Rate from SpO2 Sensor 60 54 L Pulse Rhythm Respiratory Rate 15 15 Respiratory Effort / Characteristics Respiratory Depth Respiratory Pattern Blood Pressure 139/75 Blood Pressure [Left Arm] Blood Pressure Mean 96 Blood Pressure Mean [Left Arm] Blood Pressure Position Pulse Oximetry 97 98 Oxygen Delivery Method Oxygen Flow Rate Sepsis Recent Fever Within 48 Hours Sepsis New/Unexplained Change in Mental Status Sepsis Action Taken by Nursing 01/29/22 18:00 01/29/22 18:00 01/29/22 18:30 Temperature Temperature Source Pulse Rate 61 60 Pulse Rate [Apical] Pulse Rate from SpO2 Sensor 56 L 61 Pulse Rhythm Respiratory Rate 15 13 Respiratory Effort / Characteristics Respiratory Depth Respiratory Pattern Blood Pressure 131/77 Blood Pressure [Left Arm] Blood Pressure Mean 95 Blood Pressure Mean [Left Arm] Blood Pressure Position Pulse Oximetry 98 89 L Oxygen Delivery Method Oxygen Flow Rate Sepsis Recent Fever Within 48 Hours Sepsis New/Unexplained Change in Mental Status Sepsis Action Taken by Nursing 01/29/22 19:00 Temperature Temperature Source Pulse Rate Pulse Rate [Apical] 65 Pulse Rate from SpO2 Sensor Pulse Rhythm Respiratory Rate 18 Respiratory Effort / Characteristics Respiratory Depth Respiratory Pattern Blood Pressure Blood Pressure [Left Arm] 128/85 Blood Pressure Mean Blood Pressure Mean [Left Arm] 99 Blood Pressure Position Pulse Oximetry 95 Oxygen Delivery Method Room Air Oxygen Flow Rate Sepsis Recent Fever Within 48 Hours Sepsis New/Unexplained Change in Mental Status Sepsis Action Taken by Fdc Medications Current Medication List: was personally reviewed by me Laboratory Data Attestation: I reviewed the patient's lab results. Result diagrams: 01/29/22 14:52 01/29/22 14:52 Lab Results 01/29/22 01/29/22 01/29/22 Range/Units 14:52 14:52 14:52 WBC 9.21 (4.8-10.8) K/ul RBC 4.49 L (4.63-6.08) M/uL Hgb 14.2 (14.0-18.0) g/dl Hct 41.3 (40.1-51.0) % MCV 92.0 (80.0-100.0) fL MCH 31.6 (25.0-34.0) pg MCHC 34.4 (32.0-36.0) g/dL RDW Std Deviation 46.3 (36.4-46.3) fL RDW Coeff of Santosh 13.6 (11.5-14.5) % Plt Count 171 (130-400) K/uL MPV 13.1 H (9.4-12.4) fL Immature Gran % (Auto) 0.2 % Neut % (Auto) 71.7 % Lymph % (Auto) 18.0 % [place] % (Auto) 9.6 % Eos % (Auto) 0.2 % Baso % (Auto) 0.3 % Neut # (Auto) 6.60 H (1.4-6.5) K/uL Lymph # (Auto) 1.66 (1.2-3.4) K/uL [place] # (Auto) 0.88 H (0.24-0.82) K/uL Eos # (Auto) 0.02 (0-0.50) K/uL Baso # (Auto) 0.03 (0-0.2) K/uL Immature Gran # (Auto) 0.02 (0.00-0.02) K/uL PT 11.1 (9.0-12.0) Seconds INR 1.0 (0.9-1.1) APTT 24.3 (21.0-31.0) Seconds PTT Ratio 0.9 Sodium 136 (136-145) mmol/L Potassium 2.5 L* (3.5-5.1) mmol/L Chloride 91 L (98-107) mmol/L Carbon Dioxide 33 H (21-32) mmol/L Anion Gap 12 H (3-11) BUN 116 H (6-23) mg/dl Creatinine 4.98 H* (0.6-1.4) mg/dl Est Cr Clr Drug Dosing 15.6 ml/min Est GFR ( Amer) 12.0 ml/min Est GFR (Non-Af Amer) 10.4 ml/min BUN/Creatinine Ratio 23.3 H (10-20) Glucose 151 H (70-99(Fasting)) mg/dl Calcium 8.6 (8.5-10.1) mg/dl Total Bilirubin 0.6 (0.2-1.0) mg/dl AST 244 H (13-39) U/L ALT 442 H (7-52) U/L Alkaline Phosphatase 101 (34-104) U/L Troponin I High Sens 72.6 H* (0-20) pg/ml Total Protein 6.6 (6.0-8.3) gm/dl Albumin 3.7 (3.4-5.0) gm/dl Globulin 2.9 (2.5-4.0) gm/dl Albumin/Globulin Ratio 1.3 (0.9-2) Lipase 32 (11-82) U/L SARS-CoV-2, RNA, NAAT (NEGATIVE) 01/29/22 Range/Units 14:52 WBC (4.8-10.8) K/ul RBC (4.63-6.08) M/uL Hgb (14.0-18.0) g/dl Hct (40.1-51.0) % MCV (80.0-100.0) fL MCH (25.0-34.0) pg MCHC (32.0-36.0) g/dL RDW Std Deviation (36.4-46.3) fL RDW Coeff of Santosh (11.5-14.5) % Plt Count (130-400) K/uL MPV (9.4-12.4) fL Immature Gran % (Auto) % Neut % (Auto) % Lymph % (Auto) % [place] % (Auto) % Eos % (Auto) % Baso % (Auto) % Neut # (Auto) (1.4-6.5) K/uL Lymph # (Auto) (1.2-3.4) K/uL [place] # (Auto) (0.24-0.82) K/uL Eos # (Auto) (0-0.50) K/uL Baso # (Auto) (0-0.2) K/uL Immature Gran # (Auto) (0.00-0.02) K/uL PT (9.0-12.0) Seconds INR (0.9-1.1) APTT (21.0-31.0) Seconds PTT Ratio Sodium (136-145) mmol/L Potassium (3.5-5.1) mmol/L Chloride (98-107) mmol/L Carbon Dioxide (21-32) mmol/L Anion Gap (3-11) BUN (6-23) mg/dl Creatinine (0.6-1.4) mg/dl Est Cr Clr Drug Dosing ml/min Est GFR ( Amer) ml/min Est GFR (Non-Af Amer) ml/min BUN/Creatinine Ratio (10-20) Glucose (70-99(Fasting)) mg/dl Calcium (8.5-10.1) mg/dl Total Bilirubin (0.2-1.0) mg/dl AST (13-39) U/L ALT (7-52) U/L Alkaline Phosphatase (34-104) U/L Troponin I High Sens (0-20) pg/ml Total Protein (6.0-8.3) gm/dl Albumin (3.4-5.0) gm/dl Globulin (2.5-4.0) gm/dl Albumin/Globulin Ratio (0.9-2) Lipase (11-82) U/L SARS-CoV-2, RNA, NAAT NEGATIVE (NEGATIVE) Administered Medications Discontinued Medications Sodium Chloride (Nss) 500 mls @ 999 mls/hr IV .Q31M STA Stop: 01/29/22 15:02 Last Infusion: 01/29/22 16:51 Dose: 0 mls/hr Documented By: Admin: 01/29/22 15:33 Dose: 999 mls/hr Documented By: CHRIS Potassium Chloride (K Kash / Wtr) 10 meq in 100 mls @ 100 mls/hr IV ONE ONE; Protocol Stop: 01/29/22 16:52 Last Infusion: 01/29/22 17:21 Dose: 0 mls/hr Documented By: Admin: 01/29/22 16:21 Dose: 100 mls/hr Documented By: CHRIS Imaging Data Radiologist's Impression: Chest X-Ray 01/29/22 14:32 XR chest 1V portable CLINICAL HISTORY: weakness COMPARISON STUDY: Chest radiograph December 25, 2021. FINDINGS: Lung volumes are normal. Lungs are clear. There is no pneumothorax or pleural effusion. Cardiac size is stable. Left subclavian biventricular pacer/AICD is in place. Mediastinal contours are normal. There is no evidence for pulmonary edema. IMPRESSION: No acute cardiopulmonary findings. ACT 112: Negative or not required by law. Electronically signed by: Memo Lee M.D. 01/29/2022 2:59 PM Discharge Plan Visit Data Chief Complaint: Abnormal Labs/Diagnostic Testing Stated Complaint: REF BY , POSSIBLE KIDNEY FAILURE, ABNORMAL LAB ED Provider: Gary Perkins Discharge Problem: Acute renal failure, Hypokalemia Patient Disposition: Admitted As Inpatient Forms Stand Alone Forms: My [facility] [employer] Prescriptions Prescriptions: No Action levothyroxine 25 mcg tablet 37.5 mcg PO QAM Rx Instructions: TAKES 1 1/2 TABS. furosemide 40 mg tablet 80 mg PO BID Rx Instructions: TAKES AT 0200 & 1400 allopurinol 100 mg tablet 200 mg PO DAILY aspirin 81 mg Tablet,Delayed Release (Dr/Ec) 81 mg PO DAILY Rx Instructions: TAKE THIS MED WITH FOOD amiodarone 200 mg tablet 200 mg PO BID 60 Days Qty: 120 3RF metoprolol succinate 50 mg tablet extended release 24 hr 50 mg PO BID 60 Days Qty: 120 3RF triamcinolone acetonide 0.1 % Cream 1 applic TOPICAL BID PRN (Reason: AFFECTED AREA) lisinopril 5 mg tablet 2.5 mg PO DAILY Centrum Silver 0.4 mg-300 mcg- 250 mcg Tablet 1 tab PO DAILY metolazone 2.5 mg tablet 2.5 mg PO 3XWK Rx Instructions: TAKES MON, WED, & FRI. potassium chloride 10 mEq capsule, extended release 30 meq PO 3XWK Rx Instructions: TAKES MON, WED, & FRI WITH METOLAZONE Referrals Referrals: Ioana Son DO [Primary Care Provider] - : Acute renal failure Qualifiers: Acute renal failure type: unspecified Qualified Code(s): N17.9 - Acute kidney failure, unspecified
--- NOTE | 2022-01-29 15:00 | XRay Report ---
XR chest 1V portable CLINICAL HISTORY: weakness COMPARISON STUDY: Chest radiograph December 25, 2021. FINDINGS: Lung volumes are normal. Lungs are clear. There is no pneumothorax or pleural effusion. Car diac size is stable. Left subclavian biventricular pacer/AICD is in place. Mediastinal contours are n ormal. There is no evidence for pulmonary edema. IMPRESSION: No acute cardiopulmonary findings. ACT 112: Negative or not required by law. Electronically signed by: Memo Lee M.D. 01/29/2022 2:59 PM
[2022-01-29 15:13] LABS: Hematocrit (blood only) 41.3 % (40.1-51.0); Hemoglobin 14.2 g/dl (14.0-18.0); Mean Corpuscular Hemoglobin 31.6 pg (25.0-34.0); Mean Corpuscular Hgb Conc 34.4 g/dL (32.0-36.0); RDW Coefficient of Variation 13.6 % (11.5-14.5); RDW Standard Deviation 46.3 fL (36.4-46.3); Red Blood Count 4.49 M/uL (4.63-6.08); White Blood Count 9.21 K/ul (4.8-10.8)
[2022-01-29 15:26] LABS: Partial Thromboplastin Ratio 0.9; Partial Thromboplastin Time 24.3 Seconds (21.0-31.0); Prothrombin Time 11.1 Seconds (9.0-12.0)
[2022-01-29 15:53] LABS: Albumin Globulin Ratio 1.3 (0.9-2); Albumin Level 3.7 gm/dl (3.4-5.0); BUN Creatinine Ratio 23.3 (10-20); Bilirubin,Total 0.6 mg/dl (0.2-1.0); Calcium 8.6 mg/dl (8.5-10.1); Creatinine Clr Calc Pharmacy 15.6 ml/min; Est GFR (Non-African American) 10.4 ml/min; Globulin 2.9 gm/dl (2.5-4.0); Potassium 2.5 mmol/L (3.5-5.1); Total Protein 6.6 gm/dl (6.0-8.3); Troponin I High Sensitivity 72.6 pg/ml (0-20)
[2022-01-29] MEDS ORDERED: POTASSIUM CHLORIDE / WTR 10 MEQ/100 ML PLCT IV ONE (15:53)
[2022-01-29 16:19] LABS: Mean Platelet Volume 13.1 fL (9.4-12.4); Platelet Count 171 K/uL (130-400)
[2022-01-29 16:20] LABS: Basophils # (auto) 0.03 K/uL (0-0.2); Basophils % (auto) 0.3 %; Eosinophils # (auto) 0.02 K/uL (0-0.50); Eosinophils % (auto) 0.2 %; Immature Granulocytes # (auto) 0.02 K/uL (0.00-0.02); Immature Granulocytes % (auto) 0.2 %; Lymphocytes # (auto) 1.66 K/uL (1.2-3.4); Monocytes # (auto) 0.88 K/uL (0.24-0.82); Monocytes % (auto) 9.6 %; Neutrophils % (auto) 71.7 %
--- NOTE | 2022-01-29 17:58 | History & Physical Report ---
Date of Service January 29, 2022 Assessment & Plan (1) Acute renal failure: (2) Hypokalemia: (3) Elevated LFTs: (4) (HFpEF) heart failure with preserved ejection fraction: (5) PAF (paroxysmal atrial fibrillation): (6) CKD (chronic kidney disease), stage IV: (7) HTN (hypertension): (8) Gout: Plan Severe JELENA with CKD IV (baseline Cr: ~2) and HypoK+: -2/2 excess diuretics use -pt has lost ~20 lbs in 2 weeks -VSS -pt is s/p 500 CC bolus and 10meq KCL --- due to HF will encourage PO intake but will do IV KCL 10meq x4 -repeat BMP at 8pm and morning EKG -due to CKD IV will consult nephron -admit to PCU with tele HFpEF, and Afib: -will hold both Lasix and metolazone due to severe JELENA -will do daily weights -cardiology consult for input on diuretic dose - Trop is elevated: but lower than previous value --- denied any CP -trend trop Elevated LFTs: -likely dehydration -denied any abd symptoms -trend LFTs: if worsening then image Gout/HTN: -will hold allopurinol and Lisinopril Hypothyroidism: -will continue home dose Diet: Cardiac DVT PPx: SCD (due to recent GI bleed) Code Status: DNR/DNI Emergency Contact: Mckayla [phone] History of Present Illness Chief Complaint: HypoK+ and JELENA Primary Care Provider: Ioana Son DO Pt is a 76 y/o M with hx of HFpEF, Afib (not on AC due to GI bleed), CKD IV, s/p BiVentricular pacemaker defibrillator, MGUS, HTN, HLD, Gout, hypothyroidism, Prostate Cancer s/p radiation, Prediabetes came into the clinic for hypoK+ Pt has been also experiencing dizziness with fatigue for few days. Pt was recently admitted to the hospital for acute decompensated HF. He was discharged on Lasix 80mg BID. Pt was seen by cardiology 3 weeks ago and appeared fluid overloaded therefore he was started on metolazone 2.5mg M,W,F with KCL 30 meq M,W,F. Pt has been taking both Lasix and metolazone: with both diuretics pt has been losing weight and his symptoms were improving. At bedside: pt denied any CP, SOB, palpitation, abd pain, N/V. Has been urinating a lot. His weight was 242 on 01/10 and decreased to 227 on 01/27. Allergies Allergy/AdvReac Type Severity Reaction Status Date / Time CALLIE Inhibitors AdvReac Intermediate COUGH Verified 01/29/22 17:14 Sulfa (Sulfonamide AdvReac Intermediate DIARRHEA Verified 01/29/22 17:14 Antibiotics) Home Medications Medication Instructions Recorded Confirmed Type allopurinol 100 mg tablet 200 mg PO DAILY 06/05/20 01/29/22 History aspirin 81 mg tablet,delayed 81 mg PO DAILY 06/05/20 01/29/22 History release furosemide 40 mg tablet 80 mg PO BID 06/05/20 01/29/22 History levothyroxine 25 mcg tablet 37.5 mcg PO QAM 06/05/20 01/29/22 History amiodarone 200 mg tablet 200 mg PO BID 60 days #120 tabs 06/07/20 01/29/22 Rx metoprolol succinate 50 mg 50 mg PO BID 60 days #120 tabs 06/07/20 01/29/22 Rx tablet,extended release 24 hr lisinopril 5 mg tablet 2.5 mg PO DAILY 12/24/21 01/29/22 History ecbhfdfj-vki-dicfx acid 0.4 1 tab PO DAILY 12/24/21 01/29/22 History mg-lycopene 300 mcg-lutein 250 mcg tablet (Centrum Silver) triamcinolone acetonide 0.1 % 1 applic topical BID PRN AFFECTED 12/24/21 01/29/22 History topical cream AREA metolazone 2.5 mg tablet 2.5 mg PO 3XWK 01/29/22 01/29/22 History potassium chloride 10 mEq 30 meq PO 3XWK 01/29/22 01/29/22 History capsule,extended release Past Med/Surg History Medical History (Updated 01/29/22 @ 18:18 by Mira Jordan MD) (HFpEF) heart failure with preserved ejection fraction Cardiomyopathy Chronic anticoagulation Chronic systolic heart failure CKD (chronic kidney disease) stage 3, GFR 30-59 ml/min CKD (chronic kidney disease), stage IV Dyslipidemia GI bleed Gout HTN (hypertension) Iron deficiency anemia MGUS (monoclonal gammopathy of unknown significance) NICM (nonischemic cardiomyopathy) Pacemaker PAF (paroxysmal atrial fibrillation) Prediabetes Prostate cancer (03/15/13) "STAGING: Prostate, adenocarcinoma, meenu 3 + 4, PSA 17.38, cT2b, group IIB Prostate gland size - 40 cc (by TR[facility], Dr. Joyner) initially followed with active surveillance PSAD - 0.434 TREATMENT: 1. 6 months of hormonal suppression 2. Status post completion of IMRT/IGRT 09/02/2016 received 8100 cGy" On 04/18/16 15:06 Lynne Henao wrote "STAGING: Prostate, adenocarcinoma, meenu 3 + 4, PSA 17.38, cT2b, group IIB Prostate gland size - 40 cc (by TR[facility], Dr. Joyner) PSAD - 0.434" Secondary hyperparathyroidism of renal origin Supratherapeutic INR Tubular adenoma of rectum Surgical History History of implantable cardioverter-defibrillator (ICD) placement History of tonsillectomy Hx of colonoscopy Family History Father Heart disease age 73 - [place] Uncle Heart disease paternal Grandfather (Paternal) Heart disease Social History Smoking Status: Never smoker Second Hand Exposure: No; Hx Alcohol Use: Yes Alcohol type: beer Alcohol Intake Frequency: Monthly or Less Hx Substance Use: No Preferred Language: Polish Communication Ability: Effective Ultrasonic Tester Required: No Beliefs That Will Affect Care: None marital status: Current Living Situation: Alone Feels Safe at Home: Yes Assistive Devices: None Review of Systems Review of Systems: At least 10 Review of systems were reviewed and all negative except as indicated in HPI Physical Exam Physical Exam: General:. NAD, well developed, well nourished, average body habitus HEENT:. Normocephalic and atraumatic, Normal Conjunctiva, EOMI, Sclera is non- icteric Lungs:. No signs of respiratory distress, CTA, no wheezing or crackles Heart:. Normal S1, S2, no murmur Abdominal:. ND, Soft, NT MSK:. No LE edema Psych:. AAOx3, normal affect Results & Data Results & Data ([facility]) Vital Signs (Past 12 Hours) Vital Signs Temp Pulse Resp BP Pulse Ox O2 Del Method O2 Flow Rate 01/29/22 17:00 62 15 97 01/29/22 16:30 119/62 01/29/22 16:30 60 14 63 L 01/29/22 16:00 60 13 94 01/29/22 16:00 109/61 01/29/22 15:50 60 14 93 01/29/22 14:32 60 19 98 Room Air 0 01/29/22 14:09 60 19 98 Room Air 01/29/22 14:09 98 Room Air 01/29/22 14:12 36.7 C 73 18 106/64 94 Room Air Laboratory Results Short CBC 01/29/22 Range/Units 14:52 WBC 9.21 (4.8-10.8) K/ul Hgb 14.2 (14.0-18.0) g/dl Hct 41.3 (40.1-51.0) % Plt Count 171 (130-400) K/uL BMP 01/29/22 14:52 Sodium 136 Potassium 2.5 L* Chloride 91 L Carbon Dioxide 33 H BUN 116 H Creatinine 4.98 H* Glucose 151 H Calcium 8.6 Liver Function 01/29/22 Range/Units 14:52 Total Bilirubin 0.6 (0.2-1.0) mg/dl AST 244 H (13-39) U/L ALT 442 H (7-52) U/L Alkaline Phosphatase 101 (34-104) U/L Albumin 3.7 (3.4-5.0) gm/dl Diagnostic Findings Chest X-Ray 01/29/22 14:32 XR chest 1V portable CLINICAL HISTORY: weakness COMPARISON STUDY: Chest radiograph December 25, 2021. FINDINGS: Lung volumes are normal. Lungs are clear. There is no pneumothorax or pleural effusion. Cardiac size is stable. Left subclavian biventricular pacer/AICD is in place. Mediastinal contours are normal. There is no evidence for pulmonary edema. IMPRESSION: No acute cardiopulmonary findings. ACT 112: Negative or not required by law. Electronically signed by: Memo Lee M.D. 01/29/2022 2:59 PM Code Status & VTE Plan VTE Prophylaxis Plan VTE Prophylaxis will be ordered: Yes (1) Acute renal failure Acute renal failure type: unspecified Qualified Code(s): N17.9 - Acute kidney failure, unspecified (2) HTN (hypertension) Hypertension type: essential hypertension Qualified Code(s): I10 - Essential (primary) hypertension
[2022-01-29] MEDS: POTASSIUM CHLORIDE / WTR 10 MEQ/100 ML PLCT IV SCH ×2 (21:31→22:47)
[2022-01-29] MEDS: METOPROLOL SUCC 50MG EXT REL TAB PO SCH (21:50)
[2022-01-29] MEDS: AMIODARONE 200 MG TAB PO SCH (21:50)
[2022-01-29 22:15] LABS: BUN Creatinine Ratio 25.1 (10-20); Calcium 8.3 mg/dl (8.5-10.1); Creatinine Clr Calc Pharmacy 17.1 ml/min; Est GFR (African American) 13.4 ml/min; Est GFR (Non-African American) 11.6 ml/min; Potassium 2.6 mmol/L (3.5-5.1)
[2022-01-30] MEDS: POTASSIUM CHLORIDE / WTR 10 MEQ/100 ML PLCT IV SCH ×2 (00:40→01:53)
[2022-01-30 01:18] LABS: Appearance Urine Clear (Clear); Bilirubin Urine Negative (Negative); Blood Urine Negative (Negative); Color Urine Yellow; Glucose Urine UA Negative (Negative); Ketones Urine Negative (Negative); Leukocyte Esterase Urine Negative (Negative); Nitrite Urine Negative (Negative); Protein Urine Negative (Negative); Specific Gravity Urine 1.013 (1.000-1.030); Urobilinogen Urine Negative (Negative); pH Urine 5.5 (4.5-7.5)
[2022-01-30 07:49] LABS: Hematocrit (blood only) 37.1 % (40.1-51.0); Hemoglobin 13.1 g/dl (14.0-18.0); Mean Corpuscular Hemoglobin 31.7 pg (25.0-34.0); Mean Corpuscular Hgb Conc 35.3 g/dL (32.0-36.0); Mean Corpuscular Volume 89.8 fL (80.0-100.0); RDW Coefficient of Variation 13.5 % (11.5-14.5); RDW Standard Deviation 44.4 fL (36.4-46.3); Red Blood Count 4.13 M/uL (4.63-6.08); White Blood Count 6.51 K/ul (4.8-10.8)
[2022-01-30 07:51] LABS: Mean Platelet Volume 13.6 fL (9.4-12.4); Platelet Count 136 K/uL (130-400)
[2022-01-30 07:55] LABS: Basophils # (auto) 0.04 K/uL (0-0.2); Basophils % (auto) 0.6 %; Eosinophils # (auto) 0.09 K/uL (0-0.50); Eosinophils % (auto) 1.4 %; Immature Granulocytes # (auto) 0.03 K/uL (0.00-0.02); Immature Granulocytes % (auto) 0.5 %; Lymphocytes # (auto) 1.48 K/uL (1.2-3.4); Lymphocytes % (auto) 22.7 %; Monocytes # (auto) 0.71 K/uL (0.24-0.82); Monocytes % (auto) 10.9 %; Neutrophils # (auto) 4.16 K/uL (1.4-6.5); Neutrophils % (auto) 63.9 %
[2022-01-30] MEDS: ASPIRIN 81 MG ECTAB PO SCH (08:14)
[2022-01-30] MEDS: AMIODARONE 200 MG TAB PO SCH ×2 (08:14→20:52)
[2022-01-30] MEDS: CEROVITE ADV FORMULA TAB PO SCH (08:14)
[2022-01-30] MEDS: METOPROLOL SUCC 50MG EXT REL TAB PO SCH ×2 (08:14→20:52)
[2022-01-30 08:39] LABS: Alanine Aminotransferase 362 U/L (7-52); Albumin Globulin Ratio 1.2 (0.9-2); Albumin Level 3.2 gm/dl (3.4-5.0); Alkaline Phosphatase 75 U/L (34-104); BUN Creatinine Ratio 28.4 (10-20); Bilirubin,Total 0.6 mg/dl (0.2-1.0); Blood Urea Nitrogen 104 mg/dl (6-23); Calcium 8.1 mg/dl (8.5-10.1); Carbon Dioxide 32 mmol/L (21-32); Chloride 94 mmol/L (98-107); Creatinine Clr Calc Pharmacy 21.3 ml/min; Est GFR (African American) 17.5 ml/min; Est GFR (Non-African American) 15.1 ml/min; Globulin 2.7 gm/dl (2.5-4.0); Glucose 129 mg/dl (70-99(Fasting)); Total Protein 5.9 gm/dl (6.0-8.3)
[2022-01-30] MEDS ORDERED: LEVOTHYROXINE SODIUM 25 MCG TABLET PO SCH (09:00)
--- NOTE | 2022-01-30 09:08 | Cardiology Consultation ---
Date of Consultation January 30, 2022 Assessment & Plan (1) Acute renal failure: (2) Hypokalemia: (3) (HFpEF) heart failure with preserved ejection fraction: Plan The patient is currently clinically stable. I would continue to hold his diuretics. Supplement his potassium as needed. His most recent echocardiogram completed in November suggests normal LV systolic function. I will repeat the echocardiogram. History of Present Illness Attending Physician: Cindy Harding MD History of Present Illness This is a 76-year-old male patient with an extensive previous cardiac history as outlined below. The patient was last seen in our clinic several weeks ago by Lauro Thompson. At that time he had volume overload and metaxalone 2.5 mg 3 days a week was added to his furosemide 80 mg twice daily. Patient states he lost approximately 20 pounds of fluid weight and was feeling better however the weekend after he started this regimen he felt dizzy and fatigued and held the Tessalon for several days before restarting. He presented the hospital with fatigue and not feeling well. His creatinine is elevated and he is hypokalemic probably on the basis of overdiuresis with the combination of a loop diuretic with the thiazide diuretic metaxalone. 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 4.Paroxysmal atrial fibrillation 5.Frequent ventricular ectopy with resultant past reduction in biventricular pacemaker function 6.History of fast ventricular tachycardia status post appropriate device discharges as detailed above. Amiodarone initiated January 20, 2020 7.Patient hospitalized July 01, 2020 to July 02, 2020 with undefined rectal bleeding, symptomatic anemia requiring transfusion of 2 units packed red blood cells. Anticoagulation (Coumadin) held. Endoscopy declined. 8.Chart history of MGUS and iron deficiency anemia 9.Stage III-IV chronic kidney disease 10.Hypertension 11.Dyslipidemia 12.History of gout 13.History of prostate carcinoma status post radiation therapy 14.Diabetes. Allergies Allergy/AdvReac Type Severity Reaction Status Date / Time CALLIE Inhibitors AdvReac Intermediate COUGH Verified 01/29/22 17:14 Sulfa (Sulfonamide AdvReac Intermediate DIARRHEA Verified 01/29/22 17:14 Antibiotics) Home Medications Medication Instructions Recorded Confirmed Type allopurinol 100 mg tablet 200 mg PO DAILY 06/05/20 01/29/22 History aspirin 81 mg tablet,delayed 81 mg PO DAILY 06/05/20 01/29/22 History release furosemide 40 mg tablet 80 mg PO BID 06/05/20 01/29/22 History levothyroxine 25 mcg tablet 37.5 mcg PO QAM 06/05/20 01/29/22 History amiodarone 200 mg tablet 200 mg PO BID 60 days #120 tabs 06/07/20 01/29/22 Rx metoprolol succinate 50 mg 50 mg PO BID 60 days #120 tabs 06/07/20 01/29/22 Rx tablet,extended release 24 hr lisinopril 5 mg tablet 2.5 mg PO DAILY 12/24/21 01/29/22 History abmcnrkj-lhc-fksim acid 0.4 1 tab PO DAILY 12/24/21 01/29/22 History mg-lycopene 300 mcg-lutein 250 mcg tablet (Centrum Silver) triamcinolone acetonide 0.1 % 1 applic topical BID PRN AFFECTED 12/24/21 01/29/22 History topical cream AREA metolazone 2.5 mg tablet 2.5 mg PO 3XWK 01/29/22 01/29/22 History potassium chloride 10 mEq 30 meq PO 3XWK 01/29/22 01/29/22 History capsule,extended release Patient History Medical History (HFpEF) heart failure with preserved ejection fraction Cardiomyopathy Chronic anticoagulation Chronic systolic heart failure CKD (chronic kidney disease) stage 3, GFR 30-59 ml/min CKD (chronic kidney disease), stage IV Dyslipidemia GI bleed Gout HTN (hypertension) Iron deficiency anemia MGUS (monoclonal gammopathy of unknown significance) NICM (nonischemic cardiomyopathy) Pacemaker PAF (paroxysmal atrial fibrillation) Prediabetes Prostate cancer (03/15/13) "STAGING: Prostate, adenocarcinoma, meenu 3 + 4, PSA 17.38, cT2b, group IIB Prostate gland size - 40 cc (by [facility], Dr. Joyner) initially followed with active surveillance PSAD - 0.434 TREATMENT: 1. 6 months of hormonal suppression 2. Status post completion of IMRT/IGRT 09/02/2016 received 8100 cGy" On 04/18/16 15:06 Veeral Henao wrote "STAGING: Prostate, adenocarcinoma, meenu 3 + 4, PSA 17.38, cT2b, group IIB Prostate gland size - 40 cc (by [facility], Dr. 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 All other 10 point review of systems are negative. Physical Exam Physical Exam: General: no acute distress and stated age Head: normocephalic, no masses, lesions, tenderness or abnormalities Eyes: conjunctiva are pink and non-injected, sclera clear Neck: supple, no adenopathy, no bruits, normal jugular venous pulse, no hepatojugular reflux Chest: normal shape and normal respiratory effort Lungs: clear to auscultation and percussion Cardiac Exam: - regular rate & rhythm, no murmurs gallops or rubs - normal S1, normal S2 Pulses: 2(+) throughout Abdomen: abdomen soft, non-tender, no abnormal masses and no hepatosplenomegaly Musculoskeletal: no gait disturbance, no joint inflammation, no deforming arthritis Extremities: no edema and no cyanosis Neuro: grossly normal exam Results & Data ([facility]) Vital Signs (Past 12 Hours) Vital Signs Temp Pulse Pulse Resp BP BP Pulse Ox 01/30/22 08:11 36.4 C L 71 18 123/61 97 01/30/22 07:36 63 01/30/22 04:35 36.5 C 60 18 131/71 95 01/29/22 23:00 60 01/29/22 21:20 65 01/29/22 23:31 36.4 C L 59 L 18 112/59 L 93 01/29/22 21:49 61 01/29/22 21:10 36.3 C L 59 L 18 121/64 92 O2 Del Method 01/30/22 08:11 01/30/22 07:36 01/30/22 04:35 Room Air 01/29/22 23:00 01/29/22 21:20 01/29/22 23:31 Room Air 01/29/22 21:49 01/29/22 21:10 Laboratory Results Laboratory Results - last 24 hr 01/29/22 01/29/22 01/29/22 14:52 14:52 14:52 WBC 9.21 RBC 4.49 L Hgb 14.2 Hct 41.3 MCV 92.0 MCH 31.6 MCHC 34.4 RDW Std Deviation 46.3 RDW Coeff of Santosh 13.6 Plt Count 171 MPV 13.1 H Immature Gran % (Auto) 0.2 Neut % (Auto) 71.7 Lymph % (Auto) 18.0 Hendricks % (Auto) 9.6 Eos % (Auto) 0.2 Baso % (Auto) 0.3 Neut # (Auto) 6.60 H Lymph # (Auto) 1.66 Hendricks # (Auto) 0.88 H Eos # (Auto) 0.02 Baso # (Auto) 0.03 Immature Gran # (Auto) 0.02 PT 11.1 INR 1.0 APTT 24.3 PTT Ratio 0.9 Sodium 136 Potassium 2.5 L* Chloride 91 L Carbon Dioxide 33 H Anion Gap 12 H BUN 116 H Creatinine 4.98 H* Est Cr Clr Drug Dosing 15.6 Est GFR ( Amer) 12.0 Est GFR (Non-Af Amer) 10.4 BUN/Creatinine Ratio 23.3 H Glucose 151 H Calcium 8.6 Magnesium Total Bilirubin 0.6 AST 244 H ALT 442 H Alkaline Phosphatase 101 Troponin I High Sens 72.6 H* Total Protein 6.6 Albumin 3.7 Globulin 2.9 Albumin/Globulin Ratio 1.3 Lipase 32 Urine Color Urine Appearance Urine pH Ur Specific [place] Urine Protein Urine Glucose (UA) Urine Ketones Urine Blood Urine Nitrite Urine Bilirubin Urine Urobilinogen Ur Leukocyte Esterase SARS-CoV-2, RNA, NAAT 01/29/22 01/29/22 01/29/22 14:52 19:09 21:38 WBC RBC Hgb Hct MCV MCH MCHC RDW Std Deviation RDW Coeff of Santosh Plt Count MPV Immature Gran % (Auto) Neut % (Auto) Lymph % (Auto) Hendricks % (Auto) Eos % (Auto) Baso % (Auto) Neut # (Auto) Lymph # (Auto) Hendricks # (Auto) Eos # (Auto) Baso # (Auto) Immature Gran # (Auto) PT INR APTT PTT Ratio Sodium 136 Potassium 2.6 L Chloride 92 L Carbon Dioxide 33 H Anion Gap 11 BUN 114 H Creatinine 4.55 H* D Est Cr Clr Drug Dosing 17.1 Est GFR ( Amer) 13.4 Est GFR (Non-Af Amer) 11.6 BUN/Creatinine Ratio 25.1 H Glucose 175 H Calcium 8.3 L Magnesium Total Bilirubin AST ALT Alkaline Phosphatase Troponin I High Sens 74.7 H* Total Protein Albumin Globulin Albumin/Globulin Ratio Lipase Urine Color Urine Appearance Urine pH Ur Specific [place] Urine Protein Urine Glucose (UA) Urine Ketones Urine Blood Urine Nitrite Urine Bilirubin Urine Urobilinogen Ur Leukocyte Esterase SARS-CoV-2, RNA, NAAT NEGATIVE 01/29/22 01/30/22 01/30/22 23:37 00:36 07:01 WBC 6.51 RBC 4.13 L Hgb 13.1 L Hct 37.1 L MCV 89.8 MCH 31.7 MCHC 35.3 RDW Std Deviation 44.4 RDW Coeff of Santosh 13.5 Plt Count 136 MPV 13.6 H Immature Gran % (Auto) 0.5 Neut % (Auto) 63.9 Lymph % (Auto) 22.7 Hendricks % (Auto) 10.9 Eos % (Auto) 1.4 Baso % (Auto) 0.6 Neut # (Auto) 4.16 Lymph # (Auto) 1.48 Hendricks # (Auto) 0.71 Eos # (Auto) 0.09 Baso # (Auto) 0.04 Immature Gran # (Auto) 0.03 H PT INR APTT PTT Ratio Sodium Potassium Chloride Carbon Dioxide Anion Gap BUN Creatinine Est Cr Clr Drug Dosing Est GFR ( Amer) Est GFR (Non-Af Amer) BUN/Creatinine Ratio Glucose Calcium Magnesium Total Bilirubin AST ALT Alkaline Phosphatase Troponin I High Sens 81.7 H* Total Protein Albumin Globulin Albumin/Globulin Ratio Lipase Urine Color Yellow Urine Appearance Clear Urine pH 5.5 Ur Specific [place] 1.013 Urine Protein Negative Urine Glucose (UA) Negative Urine Ketones Negative Urine Blood Negative Urine Nitrite Negative Urine Bilirubin Negative Urine Urobilinogen Negative Ur Leukocyte Esterase Negative SARS-CoV-2, RNA, NAAT 01/30/22 01/30/22 07:01 09:10 WBC RBC Hgb Hct MCV MCH MCHC RDW Std Deviation RDW Coeff of Santosh Plt Count MPV Immature Gran % (Auto) Neut % (Auto) Lymph % (Auto) Hendricks % (Auto) Eos % (Auto) Baso % (Auto) Neut # (Auto) Lymph # (Auto) Hendricks # (Auto) Eos # (Auto) Baso # (Auto) Immature Gran # (Auto) PT INR APTT PTT Ratio Sodium TNP 136 Potassium TNP 2.6 L Chloride 94 L Carbon Dioxide 32 Anion Gap TNP BUN 104 H Creatinine 3.66 H D Est Cr Clr Drug Dosing 21.3 Est GFR ( Amer) 17.5 Est GFR (Non-Af Amer) 15.1 BUN/Creatinine Ratio 28.4 H Glucose 129 H Calcium 8.1 L Magnesium TNP 2.5 H Total Bilirubin 0.6 AST TNP 189 H ALT 362 H Alkaline Phosphatase 75 Troponin I High Sens Total Protein 5.9 L Albumin 3.2 L Globulin 2.7 Albumin/Globulin Ratio 1.2 Lipase Urine Color Urine Appearance Urine pH Ur Specific [place] Urine Protein Urine Glucose (UA) Urine Ketones Urine Blood Urine Nitrite Urine Bilirubin Urine Urobilinogen Ur Leukocyte Esterase SARS-CoV-2, RNA, NAAT Medications Administered Current Inpatient Medications Amiodarone HCl (Amiodarone 200 Mg Tab) 200 mg PO BID [facility] Stop: 02/28/22 21:21 Last Admin: 01/30/22 08:14 Dose: 200 mg Aspirin (Aspirin 81 Mg Ectab) 81 mg PO DAILY KIAN Stop: 03/01/22 08:59 Last Admin: 01/30/22 08:14 Dose: 81 mg Levothyroxine Sodium (Levothyroxine Sodium 25 Mcg Tablet) 37.5 mcg PO DAILYBB [facility] Stop: 03/02/22 06:29 Metoprolol Succinate (Metoprolol Succ 50mg Ext Rel Tab) 50 mg PO BID KIAN Stop: 02/28/22 21:21 Last Admin: 01/30/22 08:14 Dose: 50 mg Multivitamins/Minerals (Cerovite Adv Formula Tab) 1 tab PO DAILY KIAN Stop: 03/01/22 08:59 Last Admin: 01/30/22 08:14 Dose: 1 tab Potassium Chloride (Potassium Chloride Crtab 20 Meq Tabcr) 40 meq PO TID [facility] Stop: 03/01/22 13:59 (1) Acute renal failure Acute renal failure type: unspecified Qualified Code(s): N17.9 - Acute kidney failure, unspecified
[2022-01-30] MEDS ORDERED: POTASSIUM CHLORIDE CRTAB 20 MEQ TABCR PO STA (09:31)
[2022-01-30 09:51] LABS: Magnesium 2.5 mg/dl (1.7-2.4); Potassium 2.6 mmol/L (3.5-5.1)
--- NOTE | 2022-01-30 10:13 | Electrocardiogram Report ---
Test Reason : Blood Pressure : / mmHG Vent. Rate : 060 BPM Atrial Rate : 144 BPM P-R Int : 166 ms QRS Dur : 248 ms QT Int : 722 ms P-R-T Axes : 000 090 043 degrees QTc Int : 722 ms AV dual-paced rhythm Abnormal ECG When compared with ECG of 24-DEC-2021 02:15, Vent. rate has decreased BY 10 BPM Confirmed by Reji Head ([id number]) on 01/30/2022 10:13:52 AM Referred By: Ioana Son Confirmed By:Bi Head
--- NOTE | 2022-01-30 10:55 | Electrocardiogram Report ---
Test Reason : Blood Pressure : / mmHG Vent. Rate : 063 BPM Atrial Rate : 078 BPM P-R Int : 166 ms QRS Dur : 240 ms QT Int : 754 ms P-R-T Axes : 000 200 037 degrees QTc Int : 771 ms AV dual-paced rhythm with occasional Premature ventricular complexes Biventricular pacemaker detected Abnormal ECG When compared with ECG of 29-JAN-2022 15:45, (unconfirmed) Premature ventricular complexes are now Present Vent. rate has increased BY 3 BPM Confirmed by Reji Head ([id number]) on 01/30/2022 10:55:01 AM Referred By: Ioana Son Confirmed By:Bi Head
--- NOTE | 2022-01-30 11:56 | Consultation Report ---
NEPHROLOGY CONSULTATION NOTE DATE OF SERVICE: 01/30/2022. REASON FOR CONSULTATION: Acute renal failure. HISTORY OF PRESENT ILLNESS: The patient is a 76-year-old male who was discharged from the hospital just few weeks ago following an admission for congestive heart failure. He was discharged on Lasix 80 mg twice daily and metolazone 2.5 mg 3 times a week with potassium supplementation. Since that admission, he has also cut down on his fluid intake significantly. He was having some lightheadedness with extra fatigue for the last few days. He went in for a scheduled blood work to be done outpatient yesterday. He was then called by his doctors office to come to the hospital because of abnormal blood work showing acute renal failure and very low potassium. Since admission, he has received 50 mEq of IV potassium as well as some IV fluid. Lasix, metolazone and lisinopril has been held. He is starting to make more urine. His labs are starting to get better and he also feels less weak. His baseline creatinine is around 1.8 just few weeks ago. On admission, he had a creatinine of 4.98, but it is already getting better and this morning was down to 3.6. His magnesium was also slightly high. He does have elevated troponin. Potassium was 2.5 on admission, it is still 2.6. PAST MEDICAL AND SURGICAL HISTORY: Includes history of congestive heart failure, diastolic type. Most recent echocardiogram showed EF of 55%, atrial fibrillation, not on anticoagulation due to GI bleed, chronic kidney disease stage III with a most recent baseline creatinine of 1.8, status post biventricular pacemaker defibrillator, MGUS, hypertension, hyperlipidemia, gout, hypothyroidism, history of prostate cancer, status post radiation. ALLERGIES: Reviewed and is as per the H and P. MEDICATIONS: Home medication list was reviewed in detail and is as per the H and P and the medicine reconciliation list. He was taking metolazone 2.5 mg 3 times a week, potassium 30 three times a week, and Lasix 80 twice daily as well as other medications. FAMILY HISTORY: Negative for renal disease or dialysis. SOCIAL HISTORY: The patient is a nonsmoker, very occasional alcohol. He is and lives alone. REVIEW OF SYSTEMS: He was complaining of some lightheadedness and extra weakness and decreased urination for the last few days, but denies nausea, vomiting, chest pain, shortness of breath, orthopnea, PND, lower extremity edema, fever, chills, major weight change. Twelve systems reviewed and negative, otherwise. PHYSICAL EXAMINATION: GENERAL: Elderly white male who is not in any respiratory distress. He is awake, alert, oriented x 3. Normal speech and able to give detailed account of his medical problem. HEENT: Mucous membrane is moist. NECK: Supple. No JVD. CHEST: Bilaterally clear to auscultation. CARDIOVASCULAR: S1 and S2, regular. ABDOMEN: Soft, nontender. EXTREMITIES: Show no edema. NEUROLOGIC: Awake, alert and oriented. Normal speech. Moving all 4 extremities. LABORATORY TEST: His baseline creatinine is 1.8 as of November 2021. On admission, creatinine was 4.98, this morning is down to 3.6, potassium still low at 2.6, chloride 94, bicarbonate 32, BUN 104. Troponin 81.7, magnesium 2.5. ALT and AST were also elevated. Chest x-ray was unremarkable. ASSESSMENT AND PLAN: A 76-year-old male who is admitted with acute renal failure with hypokalemia. He was recently discharged following an admission for congestive heart failure and was started on Lasix and metolazone. I have been consulted for acute renal failure and electrolyte issues. 1. Acute renal failure secondary to diuresis with dual agent, Lasix and metolazone. He is starting to recover with increased urine output. No further workup is needed as the etiology of acute renal failure is prerenal with over diuresis. For the time being, I would continue to hold both the diuretics as well as lisinopril. At the time of discharge, I would recommend to use Lasix alone with some potassium. In a lot of patients combination Lasix, metolazone is lot harder to manage. He does not appear to be in any fluid overload or CHF at this point. Probably Lasix 40 twice daily at the time of discharge would be reasonable. 2. Hypokalemia. This is again secondary to diuresis, especially metolazone. Even after 50 mEq of IV potassium is still very low at 2.6. I would write for 40 mEq 3 times today and hopefully that will get the potassium better by tomorrow. The patient is already very eager to go home, but I did tell him no discharge today and possibly tomorrow if the creatinine and potassium gets better. Job ID: [id number] CHITO
--- NOTE | 2022-01-30 12:07 | Hospitalist Progress Note ---
Date of Service January 30, 2022 Assessment & Plan (1) Acute renal failure: (2) Hypokalemia: (3) Elevated LFTs: (4) (HFpEF) heart failure with preserved ejection fraction: (5) PAF (paroxysmal atrial fibrillation): (6) CKD (chronic kidney disease), stage IV: (7) HTN (hypertension): (8) Gout: Plan -JELENA with CKD IV (baseline Cr: ~2) and HypoK+: Likely due to overdiuresis pt has lost ~20 lbs in 2 weeks Got IVF on presentation Still hypokalemic Replete and monitor Nephro evaluation and recommendations noted -HFpEF -Hypertension: Continue to hold diuretics and lisinopril at this time Appears euvolemic at this time Trop is elevated: but lower than previous value -Elevated LFTs: AST/ALT elevated Trending down -Gout: -Continue to hold allopurinol -Hypothyroidism: Will continue home dose DVT PPx: SCD (due to recent GI bleed) Code Status: DNR/DNI Emergency Contact: Mckayla [phone] Admission and Anticipated Discharge Date Admission Date: January 29, 2022 Subjective 76-year-old man with chronic diastolic heart failure, A. fib not on anticoagulation due to GI bleed, CKD 4, biventricular pacemaker defibrillator in situ, MGUS, hypertension, gout, hypothyroidism, prostate cancer status post radiation who presented with dizziness for the past few days and found to have JELENA on CKD and hyperkalemia. Patient seen and examined. Patient reports feeling better today. Reports dizziness has completely resolved. Denies any palpitations, chest pain, cough, shortness of breath Denies any fevers, chills, nausea, vomiting, abdominal pain, diarrhea constipation Denies dysuria, frequency, urgency Physical Exam Constitutional: + well hydrated; no acute distress Eyes: PERRL, conjunctivae normal, anicteric sclerae ENMT: external ear and nose normal, oropharynx normal Respiratory: normal respiratory effort, lungs clear to auscultation Cardiovascular: Rate/Rhythm: regular rate and regular rhythm S1-S2 Gastrointestinal (Abdomen): normal bowel sounds, soft, nontender, no hepatosplenomegaly Musculoskeletal: no cyanosis or clubbing, extremities motor strength 5/5 No pedal edema Neurologic: PERRL, EOMI, accommodation nl, no face palsy, no dysarthria Psychiatric: A+Ox3, euthymic affect Results & Data Results & Data ([facility]) Vital Signs (Past 12 Hours) Vital Signs Temp Pulse Pulse Resp BP Pulse Ox O2 Del Method 01/30/22 11:05 36.5 C 61 18 107/61 95 Room Air 01/30/22 08:11 36.4 C L 71 18 123/61 97 01/30/22 07:36 63 01/30/22 04:35 36.5 C 60 18 131/71 95 Room Air Laboratory Results Abnormal lab results 01/29/22 01/29/22 01/29/22 Range/Units 14:52 14:52 19:09 RBC 4.49 L (4.63-6.08) M/uL Hgb (14.0-18.0) g/dl Hct (40.1-51.0) % MPV 13.1 H (9.4-12.4) fL Neut # (Auto) 6.60 H (1.4-6.5) K/uL Saline # (Auto) 0.88 H (0.24-0.82) K/uL Immature Gran # (Auto) (0.00-0.02) K/uL Potassium 2.5 L* (3.5-5.1) mmol/L Chloride 91 L (98-107) mmol/L Carbon Dioxide 33 H (21-32) mmol/L Anion Gap 12 H (3-11) BUN 116 H (6-23) mg/dl Creatinine 4.98 H* (0.6-1.4) mg/dl BUN/Creatinine Ratio 23.3 H (10-20) Glucose 151 H (70-99(Fasting)) mg/dl Calcium (8.5-10.1) mg/dl Magnesium (1.7-2.4) mg/dl AST 244 H (13-39) U/L ALT 442 H (7-52) U/L Troponin I High Sens 72.6 H* 74.7 H* (0-20) pg/ml Total Protein (6.0-8.3) gm/dl Albumin (3.4-5.0) gm/dl 01/29/22 01/29/22 01/30/22 Range/Units 21:38 23:37 07:01 RBC 4.13 L (4.63-6.08) M/uL Hgb 13.1 L (14.0-18.0) g/dl Hct 37.1 L (40.1-51.0) % MPV 13.6 H (9.4-12.4) fL Neut # (Auto) (1.4-6.5) K/uL Saline # (Auto) (0.24-0.82) K/uL Immature Gran # (Auto) 0.03 H (0.00-0.02) K/uL Potassium 2.6 L (3.5-5.1) mmol/L Chloride 92 L (98-107) mmol/L Carbon Dioxide 33 H (21-32) mmol/L Anion Gap (3-11) BUN 114 H (6-23) mg/dl Creatinine 4.55 H* D (0.6-1.4) mg/dl BUN/Creatinine Ratio 25.1 H (10-20) Glucose 175 H (70-99(Fasting)) mg/dl Calcium 8.3 L (8.5-10.1) mg/dl Magnesium (1.7-2.4) mg/dl AST (13-39) U/L ALT (7-52) U/L Troponin I High Sens 81.7 H* (0-20) pg/ml Total Protein (6.0-8.3) gm/dl Albumin (3.4-5.0) gm/dl 01/30/01/30/22 Range/Units 07:01 09:10 RBC (4.63-6.08) M/uL Hgb (14.0-18.0) g/dl Hct (40.1-51.0) % MPV (9.4-12.4) fL Neut # (Auto) (1.4-6.5) K/uL Saline # (Auto) (0.24-0.82) K/uL Immature Gran # (Auto) (0.00-0.02) K/uL Potassium 2.6 L (3.5-5.1) mmol/L Chloride 94 L (98-107) mmol/L Carbon Dioxide (21-32) mmol/L Anion Gap (3-11) BUN 104 H (6-23) mg/dl Creatinine 3.66 H D (0.6-1.4) mg/dl BUN/Creatinine Ratio 28.4 H (10-20) Glucose 129 H (70-99(Fasting)) mg/dl Calcium 8.1 L (8.5-10.1) mg/dl Magnesium 2.5 H (1.7-2.4) mg/dl AST 189 H (13-39) U/L ALT 362 H (7-52) U/L Troponin I High Sens (0-20) pg/ml Total Protein 5.9 L (6.0-8.3) gm/dl Albumin 3.2 L (3.4-5.0) gm/dl (1) Acute renal failure Acute renal failure type: unspecified Qualified Code(s): N17.9 - Acute kidney failure, unspecified (2) HTN (hypertension) Hypertension type: essential hypertension Qualified Code(s): I10 - Essential (primary) hypertension
[2022-01-30] MEDS: POTASSIUM CHLORIDE CRTAB 20 MEQ TABCR PO SCH ×2 (13:50→20:52)
[2022-01-31] MEDS ORDERED: LEVOTHYROXINE SODIUM 25 MCG TABLET PO SCH (06:30)
[2022-01-31 06:36] LABS: Hematocrit (blood only) 37.1 % (40.1-51.0); Hemoglobin 12.7 g/dl (14.0-18.0); Mean Corpuscular Hemoglobin 31.8 pg (25.0-34.0); Mean Corpuscular Hgb Conc 34.2 g/dL (32.0-36.0); Mean Corpuscular Volume 92.8 fL (80.0-100.0); Mean Platelet Volume 12.3 fL (9.4-12.4); Platelet Count 134 K/uL (130-400); RDW Coefficient of Variation 13.5 % (11.5-14.5); RDW Standard Deviation 46.4 fL (36.4-46.3); White Blood Count 5.98 K/ul (4.8-10.8)
[2022-01-31 07:15] LABS: Albumin Globulin Ratio 1.4 (0.9-2); Albumin Level 3.3 gm/dl (3.4-5.0); Bilirubin,Total 0.5 mg/dl (0.2-1.0); Calcium 8.3 mg/dl (8.5-10.1); Creatinine Clr Calc Pharmacy 30.8 ml/min; Est GFR (African American) 27.3 ml/min; Est GFR (Non-African American) 23.5 ml/min; Globulin 2.4 gm/dl (2.5-4.0); Potassium 3.4 mmol/L (3.5-5.1); Total Protein 5.7 gm/dl (6.0-8.3)
[2022-01-31] MEDS: METOPROLOL SUCC 50MG EXT REL TAB PO SCH (08:23)
[2022-01-31] MEDS: POTASSIUM CHLORIDE CRTAB 20 MEQ TABCR PO SCH ×2 (08:23→13:34)
[2022-01-31] MEDS: ASPIRIN 81 MG ECTAB PO SCH (08:24)
[2022-01-31] MEDS: AMIODARONE 200 MG TAB PO SCH (08:24)
[2022-01-31] MEDS: CEROVITE ADV FORMULA TAB PO SCH (08:24)
--- NOTE | 2022-01-31 09:49 | Cardiology Progress Note ---
Date of Service January 31, 2022 Assessment & Plan (1) Acute renal failure: (2) Hypokalemia: (3) (HFpEF) heart failure with preserved ejection fraction: Plan Patient's renal function improving. Almost at baseline. Potassium improving. Levels just below normal. Continue to hold diuretics today. Hold lisinopril Supplement potassium this morning. Consider repeating labs after lunch. If potassium improved, consider discharge later today. Per nephrology guidelines, would discharge on furosemide 40 mg BID. No metolazone. And would hold lisinopril for now. F/U labs recommended within a few days of discharge. Patient is aware to monitor fluid status closely upon returning home and call the office with sudden worsening of his CHF symptoms. Anticipate discharge later today. Case discussed with Dr. Zambrano. Admission and Anticipated Discharge Date Admission Date: January 29, 2022 Supervising Physician Co-Signing Physician Notes I have discussed the case with Laisha and reviewed the medical record. Seen and examined the patient today. I agree the patient can be discharged home with outpatient follow-up. Nephrology's help is appreciated. Subjective Patient resting in bed comfortably. Anxious for discharge. Renal function improving but not yet at baseline. Potassium improving and just below normal. Review of Systems Review of Systems: Review of Systems: See HPI for pertinent positives. All other 10 point review of systems are negative. Physical Exam Physical Exam: General: no acute distress and stated age Head: normocephalic, no masses, lesions, tenderness or abnormalities Eyes: conjunctiva are pink and non-injected, sclera clear Neck: supple, no adenopathy, no bruits, normal jugular venous pulse, no hepatojugular reflux Chest: normal shape and normal respiratory effort Lungs: clear to auscultation and percussion Cardiac Exam: - regular rate & rhythm, no murmurs gallops or rubs - normal S1, normal S2 Pulses: 2(+) throughout Abdomen: abdomen soft, non-tender, no abnormal masses and no hepatosplenomegaly Musculoskeletal: no gait disturbance, no joint inflammation, no deforming arthritis Extremities: no edema and no cyanosis Neuro: grossly normal exam Results & Data ([facility]) Vital Signs (Past 12 Hours) Vital Signs Temp Pulse Pulse Pulse Resp BP BP 01/31/22 07:00 36.7 C 60 20 113/66 01/31/22 07:59 60 01/31/22 03:49 36.8 C 61 18 118/72 01/30/22 23:00 60 01/30/22 22:57 36.9 C 60 14 115/71 Pulse Ox O2 Del Method 01/31/22 07:00 94 Room Air 01/31/22 07:59 01/31/22 03:49 94 Room Air 01/30/22 23:00 01/30/22 22:57 92 Room Air Laboratory Results Cardiac Enzymes 01/31/22 Range/Units 06:12 AST 154 H (13-39) U/L CBC 01/31/22 Range/Units 06:12 WBC 5.98 (4.8-10.8) K/ul RBC 4.00 L (4.63-6.08) M/uL Hgb 12.7 L (14.0-18.0) g/dl Hct 37.1 L (40.1-51.0) % Plt Count 134 (130-400) K/uL Comprehensive Metabolic Panel 01/31/22 Range/Units 06:12 Sodium 139 (136-145) mmol/L Potassium 3.4 L D (3.5-5.1) mmol/L Chloride 101 (98-107) mmol/L Carbon Dioxide 31 (21-32) mmol/L BUN 81 H D (6-23) mg/dl Creatinine 2.53 H D (0.6-1.4) mg/dl Glucose 129 H (70-99(Fasting)) mg/dl Calcium 8.3 L (8.5-10.1) mg/dl AST 154 H (13-39) U/L ALT 334 H (7-52) U/L Alkaline Phosphatase 78 (34-104) U/L Total Protein 5.7 L (6.0-8.3) gm/dl Albumin 3.3 L (3.4-5.0) gm/dl Intake and Output 01/30/22 01/31/22 01/31/22 22:59 06:59 14:59 Intake Total 150 / 975 150 / 975 Balance 150 / 975 150 / 975 Intake: Oral 150 / 975 150 / 975 Other: # Unmeasured Voids 1 4 Weight 106.6 kg Weight Measurement Method Standing Scale Laboratory Results WBC 5.98 K/ul (4.8-10.8) 01/31/22 06:12 RBC 4.00 M/uL (4.63-6.08) L 01/31/22 06:12 Hgb 12.7 g/dl (14.0-18.0) L 01/31/22 06:12 Hct 37.1 % (40.1-51.0) L 01/31/22 06:12 MCV 92.8 fL (80.0-100.0) 01/31/22 06:12 MCH 31.8 pg (25.0-34.0) 01/31/22 06:12 MCHC 34.2 g/dL (32.0-36.0) 01/31/22 06:12 RDW Std Deviation 46.4 fL (36.4-46.3) H 01/31/22 06:12 RDW Coeff of Santosh 13.5 % (11.5-14.5) 01/31/22 06:12 Plt Count 134 K/uL (130-400) 01/31/22 06:12 MPV 12.3 fL (9.4-12.4) 01/31/22 06:12 Immature Gran % (Auto) 0.5 % 01/30/22 07:01 Neut % (Auto) 63.9 % 01/30/22 07:01 Lymph % (Auto) 22.7 % 01/30/22 07:01 [place] % (Auto) 10.9 % 01/30/22 07:01 Eos % (Auto) 1.4 % 01/30/22 07:01 Baso % (Auto) 0.6 % 01/30/22 07:01 Neut # (Auto) 4.16 K/uL (1.4-6.5) 01/30/22 07:01 Lymph # (Auto) 1.48 K/uL (1.2-3.4) 01/30/22 07:01 [place] # (Auto) 0.71 K/uL (0.24-0.82) 01/30/22 07:01 Eos # (Auto) 0.09 K/uL (0-0.50) 01/30/22 07:01 Baso # (Auto) 0.04 K/uL (0-0.2) 01/30/22 07:01 Immature Gran # (Auto) 0.03 K/uL (0.00-0.02) H 01/30/22 07:01 PT 11.1 Seconds (9.0-12.0) 01/29/22 14:52 INR 1.0 (0.9-1.1) 01/29/22 14:52 APTT 24.3 Seconds (21.0-31.0) 01/29/22 14:52 PTT Ratio 0.9 01/29/22 14:52 Sodium 139 mmol/L (136-145) 01/31/22 06:12 Potassium 3.4 mmol/L (3.5-5.1) L D 01/31/22 06:12 Chloride 101 mmol/L (98-107) 01/31/22 06:12 Carbon Dioxide 31 mmol/L (21-32) 01/31/22 06:12 Anion Gap 7 (3-11) 01/31/22 06:12 BUN 81 mg/dl (6-23) H D 01/31/22 06:12 Creatinine 2.53 mg/dl (0.6-1.4) H D 01/31/22 06:12 Est Cr Clr Drug Dosing 30.8 ml/min 01/31/22 06:12 Est GFR ( Amer) 27.3 ml/min 01/31/22 06:12 Est GFR (Non-Af Amer) 23.5 ml/min 01/31/22 06:12 BUN/Creatinine Ratio 32.0 (10-20) H 01/31/22 06:12 Glucose 129 mg/dl (70-99(Fasting)) H 01/31/22 06:12 Calcium 8.3 mg/dl (8.5-10.1) L 01/31/22 06:12 Magnesium 2.5 mg/dl (1.7-2.4) H 01/30/22 09:10 Total Bilirubin 0.5 mg/dl (0.2-1.0) 01/31/22 06:12 AST 154 U/L (13-39) H 01/31/22 06:12 ALT 334 U/L (7-52) H 01/31/22 06:12 Alkaline Phosphatase 78 U/L (34-104) 01/31/22 06:12 Troponin I High Sens 81.7 pg/ml (0-20) H* 01/29/22 23:37 Total Protein 5.7 gm/dl (6.0-8.3) L 01/31/22 06:12 Albumin 3.3 gm/dl (3.4-5.0) L 01/31/22 06:12 Globulin 2.4 gm/dl (2.5-4.0) L 01/31/22 06:12 Albumin/Globulin Ratio 1.4 (0.9-2) 01/31/22 06:12 Lipase 32 U/L (11-82) 01/29/22 14:52 Urine Color Yellow 01/30/22 00:36 Urine Appearance Clear (Clear) 01/30/22 00:36 Urine pH 5.5 (4.5-7.5) 01/30/22 00:36 Ur Specific Gerald 1.013 (1.000-1.030) 01/30/22 00:36 Urine Protein Negative (Negative) 01/30/22 00:36 Urine Glucose (UA) Negative (Negative) 01/30/22 00:36 Urine Ketones Negative (Negative) 01/30/22 00:36 Urine Blood Negative (Negative) 01/30/22 00:36 Urine Nitrite Negative (Negative) 01/30/22 00:36 Urine Bilirubin Negative (Negative) 01/30/22 00:36 Urine Urobilinogen Negative (Negative) 01/30/22 00:36 Ur Leukocyte Esterase Negative (Negative) 01/30/22 00:36 SARS-CoV-2, RNA, NAAT NEGATIVE (NEGATIVE) 01/29/22 14:52 Impressions Chest X-Ray 01/29/22 14:32 XR chest 1V portable CLINICAL HISTORY: weakness COMPARISON STUDY: Chest radiograph December 25, 2021. FINDINGS: Lung volumes are normal. Lungs are clear. There is no pneumothorax or pleural effusion. Cardiac size is stable. Left subclavian biventricular pacer/AICD is in place. Mediastinal contours are normal. There is no evidence for pulmonary edema. IMPRESSION: No acute cardiopulmonary findings. ACT 112: Negative or not required by law. Electronically signed by: Memo Lee M.D. 01/29/2022 2:59 PM Diagnostic Findings Telemetry reviewed: AV paced. No arrhythmias Echo report reviewed from this admission: LV is normal in size. There is normal LV wall thickness. LV systolic function is normal. LVEF 55-60% RV systolic function is normal. LA is mildly dilated RA size is normal. Moderate MR. Medications Administered Current Inpatient Medications Amiodarone HCl (Amiodarone 200 Mg Tab) 200 mg PO BID KIAN Stop: 02/28/22 21:21 Last Admin: 01/31/22 08:24 Dose: 200 mg Aspirin (Aspirin 81 Mg Ectab) 81 mg PO DAILY KIAN Stop: 03/01/22 08:59 Last Admin: 01/31/22 08:24 Dose: 81 mg Levothyroxine Sodium (Levothyroxine Sodium 25 Mcg Tablet) 37.5 mcg PO DAILYBB KIAN Stop: 03/02/22 06:29 Last Admin: 01/31/22 06:20 Dose: 37.5 mcg Metoprolol Succinate (Metoprolol Succ 50mg Ext Rel Tab) 50 mg PO BID KIAN Stop: 02/28/22 21:21 Last Admin: 01/31/22 08:23 Dose: 50 mg Multivitamins/Minerals (Cerovite Adv Formula Tab) 1 tab PO DAILY KIAN Stop: 03/01/22 08:59 Last Admin: 01/31/22 08:24 Dose: 1 tab Potassium Chloride (Potassium Chloride Crtab 20 Meq Tabcr) 40 meq PO TID KIAN Stop: 03/01/22 13:59 Last Admin: 01/31/22 08:23 Dose: 40 meq (1) Acute renal failure Acute renal failure type: unspecified Qualified Code(s): N17.9 - Acute kidney failure, unspecified
--- NOTE | 2022-01-31 12:08 | Ultrasound Report ---
US liver HISTORY: 76 years-old Male Elevated LFT acutely elevated LFTs COMPARISON: CT abdomen and pelvis 04/24/2016 TECHNIQUE: Multiple real-time sonographic images of the abdominal right upper quadrant were obtained assessing grayscale appearance and color flow FINDINGS: The visualized pancreas is unremarkable. The liver measures 15 cm in length. Mildly increased echogen icity of the hepatic parenchyma. There are a few subcentimeter probable cysts noted within the liver. Indeterminate 9 mm hypoechoic focus within the left hepatic lobe. Similar-appearing foci were presen t on the 2016 study, therefore these findings are likely benign. Partial distention of the gallbladder without cholelithiasis, wall thickening or pericholecystic flui d. Normal common bile duct, 4 mm. Imaged right kidney demonstrates no hydronephrosis. There is a 3.7 cm cyst involving the inferior jabari e right kidney. IMPRESSION: 1. Mildly increased echogenicity of the hepatic parenchyma suggests hepatic steatosis. 2. Indeterminate 9 mm hypoechoic focus of the left hepatic lobe appears stable from 2016, likely uriah gn. ACT 112: Negative or not required by law. The above report was generated using voice recognition software. It may contain grammatical, syntax o r spelling errors. Electronically signed by: Filiberto Metcalf M.D. 01/31/2022 12:05 PM
--- NOTE | 2022-01-31 13:04 | Discharge Summary ---
Date of Service January 31, 2022 Admission HPI Per Admitting Provider Pt is a 76 y/o M with hx of HFpEF, Afib (not on AC due to GI bleed), CKD IV, s/p BiVentricular pacemaker defibrillator, MGUS, HTN, HLD, Gout, hypothyroidism, Prostate Cancer s/p radiation, Prediabetes came into the clinic for hypoK+ Pt has been also experiencing dizziness with fatigue for few days. Pt was recently admitted to the hospital for acute decompensated HF. He was discharged on Lasix 80mg BID. Pt was seen by cardiology 3 weeks ago and appeared fluid overloaded therefore he was started on metolazone 2.5mg M,W,F with KCL 30 meq M,W,F. Pt has been taking both Lasix and metolazone: with both diuretics pt has been losing weight and his symptoms were improving. At bedside: pt denied any CP, SOB, palpitation, abd pain, N/V. Has been urinating a lot. His weight was 242 on 01/10 and decreased to 227 on 01/27. Admission Exam Per Admitting Provider General:.NAD, well developed, well nourished, average body habitus HEENT:.Normocephalic and atraumatic, Normal Conjunctiva, EOMI, Sclera is non- icteric Lungs:.No signs of respiratory distress, CTA, no wheezing or crackles Heart:.Normal S1, S2, no murmur Abdominal:.ND, Soft, NT MSK:.No LE edema Psych:.AAOx3, normal affect Principal Diagnosis Acute on chronic kidney injury Hypokalemia Elevated liver function test Discharge Exam Constitutional + well hydrated; no acute distress Eyes PERRL, conjunctivae normal, anicteric sclerae ENMT external ear and nose normal, oropharynx normal Respiratory normal respiratory effort, lungs clear to auscultation Cardiovascular Rate/Rhythm: regular rate and regular rhythm S1 S2 Gastrointestinal (Abdomen) normal bowel sounds, soft, nontender, no hepatosplenomegaly Musculoskeletal no cyanosis or clubbing, extremities motor strength 5/5 No pedal edema Neurologic PERRL, EOMI, accommodation nl, no face palsy, no dysarthria Psychiatric A+Ox3, euthymic affect Discharge Data Allergies Allergy/AdvReac Type Severity Reaction Status Date / Time CALLIE Inhibitors AdvReac Intermediate COUGH Verified 08/02/22 17:14 Sulfa (Sulfonamide AdvReac Intermediate DIARRHEA Verified 01/29/22 17:14 Antibiotics) Consultations 01/29/22 16:34 ED Decision to Admit Stat 01/29/22 21:22 Consult Cardiology Routine Consult Nephrology Routine Ordered Studies 01/31/22 08:51 US liver Urgent The visualized pancreas is unremarkable. The liver measures 15 cm in length. Mildly increased echogenicity of the hepatic parenchyma. There are a few subcentimeter probable cysts noted within the liver. Indeterminate 9 mm hypoechoic focus within the left hepatic lobe. Similar-appearing foci were present on the 2016 study, therefore these findings are likely benign. Partial distention of the gallbladder without cholelithiasis, wall thickening or pericholecystic fluid. Normal common bile duct, 4 mm. Imaged right kidney demonstrates no hydronephrosis. There is a 3.7 cm cyst involving the inferior pole right kidney. IMPRESSION: 1. Mildly increased echogenicity of the hepatic parenchyma suggests hepatic steatosis. 2. Indeterminate 9 mm hypoechoic focus of the left hepatic lobe appears stable from 2016, likely benign Hospital Course (1) Acute renal failure: (2) Hypokalemia: (3) Elevated LFTs: (4) (HFpEF) heart failure with preserved ejection fraction: (5) PAF (paroxysmal atrial fibrillation): (6) CKD (chronic kidney disease), stage IV: (7) HTN (hypertension): (8) Gout: Plan Patient presented with dizziness -JELENA with CKD IV (baseline Cr: ~2) and HypoKalemia (Potassium of 2.5) : Likely due to overdiuresis pt has lost ~20 lbs in 2 weeks Cr was 4.98 on presentation Got IVF on presentation He was evaluated by Nephrology and Cardiology inpatient Diuretics and home lisinopril were held on admission Potassium was repleted. K improved to 3.4 today and Cr was 2.53 Metolazone was discontinued on discharge Lasix was reduced to 40mg bid. Potassium was changed to 40mEq daily Patient to repeat lab on friday and follow up with Nephrology outpatient -Chronic diastolic heart failure -Hypertension: Patient is currently euvolemic Cardiology recommended continuing to hold lisinopril for now on discharge -Elevated LFTs: AST/ALT elevated on presentation 244/442 Trending down to 154/334 today Liver USS noted hepatic steatosis and stable 9mm hypoechoic focus in left lobe, stable since 2016 -Hypothyroidism: Will continue home dose Total Time Total Time Spent Total Time Spent (In Minutes): 40 Total Time Includes: Examination of the Patient, Discharge Planning, Medication Reconciliation and Communication With Other Providers Discharge Plan Discharge Items Patient Disposition: Home - Self-Care Reason For Visit: Dizziness Discharge Diagnosis: Acute on chronic kidney injury Hypokalemia Elevated liver function test Activity: Resume your previous activity Non-emergency contact: Primary Care Provider and Suspender Maker Call non-emergency contact if: you have any medication questions and your symptoms worsen Follow-up/Referrals: Ioana Son DO [Primary Care Provider] - (Date & Time 02/05/2022 11:50 AM Provider Ioana Son DO Department Family Medicine [facility] ) Diet: Heart Healthy Ambulatory Orders: Comprehensive Metabolic Panel (Routine) Timeframe: [id number] Location: Determined by Patient Ordered By: Cindy Rodriguez Attending Provider Instructions: Mr Grant You came to the hospital complaining of dizziness. Evaluation noted worsened kidney function and very low potassium levels. This was managed. Your potassium level and kidney function are improved. Your lasix was reduced from 80mg twice a day to 40mg twice a day. Stop taking metolazone Your potassium was changed to 40mEq daily. Stop your lisinopril for now until your are told to resume Please do lab test called Comprehensive metabolic panel on Friday and follow up the result with the Suspender Maker. Please ensure you follow up with your Primary Doctor and Kidney doctor in the office. It was a pleasure taking care of you. Pending Studies at Discharge: No Stand-Alone Forms: My [facility] [employer], Smoking Cessation Medications and DC Order Prescriptions: New potassium chloride 20 mEq Tablet,Er Particles/Crystals 40 meq PO DAILY Qty: 60 0RF Continued levothyroxine 25 mcg tablet 37.5 mcg PO QAM Rx Instructions: TAKES 1 1/2 TABS. allopurinol 100 mg tablet 200 mg PO DAILY aspirin 81 mg Tablet,Delayed Release (Dr/Ec) 81 mg PO DAILY Rx Instructions: TAKE THIS MED WITH FOOD amiodarone 200 mg tablet 200 mg PO BID 60 Days Qty: 120 3RF metoprolol succinate 50 mg tablet extended release 24 hr 50 mg PO BID 60 Days Qty: 120 3RF triamcinolone acetonide 0.1 % Cream 1 applic TOPICAL BID PRN (Reason: AFFECTED AREA) Centrum Silver 0.4 mg-300 mcg- 250 mcg Tablet 1 tab PO DAILY Changed furosemide 40 mg tablet 40 mg PO BID Qty: 60 0RF Rx Instructions: TAKES AT 0200 & 1400 Discontinued lisinopril 5 mg tablet 2.5 mg PO DAILY metolazone 2.5 mg tablet 2.5 mg PO 3XWK Rx Instructions: TAKES MON, WED, & FRI. potassium chloride 10 mEq capsule, extended release 30 meq PO 3XWK Rx Instructions: TAKES MON, WED, & FRI WITH METOLAZONE Discharge Orders: Discharge Order (Routine); Ordered 01/31/22 Ordered By: Cindy Harding Admission Data Admit Date/Time: 01/29/22 17:36 Attending Provider: Cindy Harding I. Admit Provider: Mira Jordan Primary Care Provider: Ioana Son Other Providers: Mira Jordan ; Dale Zambrano ; Alberta Thomas Other Interventions: Discharge Summary Assessment (RN) Last Done: 01/31/22 13:25
== END 2022-01-31 14:21 | disposition home or self-care (01) | DRG 683 ==
LOC: ED 14:09 → 2S 17:36 → SUATTDRO 17:36 → 2S 21:25
DX: I50.32 Chronic diastolic (congestive) heart failure; E03.9 Hypothyroidism, unspecified; Z79.82 Long term (current) use of aspirin; R73.03 Prediabetes; Z79.890 Hormone replacement therapy; R94.5 Abnormal results of liver function studies; Z88.2 Allergy status to sulfonamides; D47.2 Monoclonal gammopathy; Z92.3 Personal history of irradiation; N17.9 Acute kidney failure, unspecified; Z85.46 Personal history of malignant neoplasm of prostate; N25.81 Secondary hyperparathyroidism of renal origin; E87.6 Hypokalemia; N18.4 Chronic kidney disease, stage 4 (severe); I13.0 Hypertensive heart and chronic kidney disease with heart failure and stage 1 through stage 4 chronic kidney disease, or unspecified chronic kidney disease; I45.4 Nonspecific intraventricular block; I42.8 Other cardiomyopathies; I48.91 Unspecified atrial fibrillation; Z95.810 Presence of automatic (implantable) cardiac defibrillator; M10.9 Gout, unspecified

== ENCOUNTER 2022-12-05 13:19 | Inpatient (IN) ==
[2022-12-05] MEDS ORDERED: FUROSEMIDE 40 MG/4 ML VIAL IV ONE (14:07)
--- NOTE | 2022-12-05 14:11 | Emergency Department Note ---
Impression & Plan Dyspnea, CHF (congestive heart failure) ED Provider Note ED Provider Note NAME: MANOHAR ECHEVARRIA AGE:77 SEX: Male : 1945 ARRIVES VIA: EMS INFORMANT: Patient ED PROVIDER(s): Bhumika Ji DO CHIEF COMPLAINT: dyspnea, leg swelling, tachycardia HPI: This is a 77-year-old male who presents emerged department via EMS after being sent over from the cardiology office. Patient states he went to the cardiology office today due to concern for increased difficulty breathing over the last 2 to 3 days, increased leg swelling, as well as weight gain. Patient with significant cardiac history. He states he is on his third pacemaker. He states he sees Lauro Thompson PA-C in the office. Patient states he has been t aking his medications as prescribed including his daily diuretic. He denies any recent fevers, chills, or URI symptoms. On review of accompanying paperwork patient with significant history of trace schemic cardiomyopathy, CHF, CKD, and BiV pacemaker. PAST MEDICAL HISTORY:See Below PAST SURGICAL HISTORY:See Below FAMILY HISTORY:See Below SOCIAL HISTORY:See Below HOME MEDICATIONS:See Below ALLERGIES:See Below VITALS:See Below PHYSICAL EXAMINATION: GENERAL: alert, well appearing, well nourished, no distress, non-toxic EYE EXAM: normal conjunctiva, PERRL and EOM's grossly intact OROPHARYNX: no exudate, no erythema, lips, buccal mucosa, and tongue normal and mucous membranes are moist NECK: supple, no nuchal rigidity, no adenopathy, non-tender LUNGS: Clear but decreased b/l to auscultation. Normal chest wall mechanics, no w/r/r HEART: no murmurs, S1 normal and S2 normal ABDOMEN: abdomen soft, non-tender, normo-active bowel sounds, no masses, no rebound or guarding. BACK: Back is symmetrical on inspection and there is no deformity, no midline tenderness, no CVA tenderness. SKIN: no rashes, petechiae, orbruising UPPER EXTREMITIES: upper extremities are grossly normal. FROM, nml pulses b/l. LOWER EXTREMITIES: 3+ b/l pitting edema. FROM, nml pulses b/l. NEURO EXAM: Normal sensorium, cranial nerves II-XII grossly intact, normal speech, no facial droop,nogross weakness of arms, no gross weakness of legs. Gross sensation intact. No ataxia. Vital Signs: reviewed and remarkable Differential Diagnosis: [] MEDICAL DECISION MAKING: [] Consultation(s): 1402: Discussed with Dr. Hall at bedside who came and saw the patient to interrogate the pacemaker given his rapid heartbeat as he was alerted by Lauro Thompson PA-C from the office. Recommends admission, 80 mg IV Lasix, basic labs, and they will follow along. 1425: Discussed with Dane Borden with [facility]ist team. ER Treatment Provided: See below Diagnostics Interpreted By Me: -ECG: Paced at 120, prolonged intervals and rightward axis, nonspecific ST/T wave changes Repeat EKG following intervention by cardiology at regarding his device showed paced rhythm at 80, prolonged intervals and rightward axis, nonspecific ST/T wave change -Cardiac Monitoring: An order was placed for continuous cardiac monitoring. The monitor shows a rate of 125 with paced rhythm. -Laboratory studies: As stated above and show below. -Imaging studies: X-ray Chest: A single view study of the chest was reviewed and was negative for cardiomegaly, focal infiltrate, effusion, pulmonary edema, or wide mediastinum. Triage Nursing Note Reviewed Prior/Outside Records Reviewed -office visit from today reviewed Past Med/Surg History Medical History (HFpEF) heart failure with preserved ejection fraction Cardiomyopathy Chronic anticoagulation Chronic systolic heart failure CKD (chronic kidney disease) stage 3, GFR 30-59 ml/min CKD (chronic kidney disease), stage IV Dyslipidemia GI bleed Gout HTN (hypertension) Iron deficiency anemia MGUS (monoclonal gammopathy of unknown significance) NICM (nonischemic cardiomyopathy) Pacemaker PAF (paroxysmal atrial fibrillation) Prediabetes Prostate cancer (03/15/13) "STAGING: Prostate, adenocarcinoma, meenu 3 + 4, PSA 17.38, cT2b, group IIB Prostate gland size - 40 cc (by TRUS, Dr. Joyner) initially followed with active surveillance PSAD - 0.434 TREATMENT: 1. 6 months of hormonal suppression 2. Status post completion of IMRT/IGRT 09/02/2016 received 8100 cGy" On 04/18/16 15:06 Lynne Henao wrote "STAGING: Prostate, adenocarcinoma, meenu 3 + 4, PSA 17.38, cT2b, group IIB Prostate gland size - 40 cc (by TRUS, Dr. Joyner) PSAD - 0.434" Secondary hyperparathyroidism of renal origin Supratherapeutic INR Tubular adenoma of rectum Surgical History History of implantable cardioverter-defibrillator (ICD) placement History of tonsillectomy Hx of colonoscopy Family History Father Heart disease age 73 - [place] Uncle Heart disease paternal Grandfather (Paternal) Heart disease Social History Smoking Status: Never smoker Second Hand Exposure: No; Do You Dip or Chew Tobacco: No; Hx Alcohol Use: Yes Alcohol type: beer Alcohol Intake Frequency: Monthly or Less Hx Substance Use: No Preferred Language: Yi Communication Ability: Effective Legal Aid Required: No Beliefs That Will Affect Care: None marital status: Current Living Situation: Alone Current Living Situation Comment: home alone How many Children do You have: 2 Other Information That Helps Us Care for You: No Feels Safe at Home: Yes Safety Concerns: Feels Safe At This Time Assistive Devices: Cane Allergies Allergies Allergy/AdvReac Type Severity Reaction Status Date / Time CALLIE Inhibitors AdvReac Intermediate COUGH Verified 01/29/22 17:14 Sulfa (Sulfonamide AdvReac Intermediate DIARRHEA Verified 01/29/22 17:14 Antibiotics) Home Meds Home Medications Medication Instructions Recorded Confirmed allopurinol 100 mg tablet 200 mg PO DAILY 06/05/20 12/05/22 aspirin 81 mg tablet,delayed 81 mg PO DAILY 06/05/20 12/05/22 release levothyroxine 25 mcg tablet 37.5 mcg PO QAM 06/05/20 12/05/22 duanhlcv-hqm-mijhv acid 0.4 1 tab PO DAILY 12/24/21 12/05/22 mg-lycopene 300 mcg-lutein 250 mcg tablet (Centrum Silver) triamcinolone acetonide 0.1 % 1 applic topical BID PRN AFFECTED 12/24/21 topical cream AREA Previous Rx's Medication Instructions Recorded amiodarone 200 mg tablet 200 mg PO BID 60 days #120 tabs 06/07/20 metoprolol succinate 50 mg 50 mg PO BID 60 days #120 tabs 06/07/20 tablet,extended release 24 hr furosemide 40 mg tablet 40 mg PO BID #60 tabs 01/31/22 potassium chloride 20 mEq 40 meq PO DAILY #60 tabs 01/31/22 tablet,extended release(part/cryst) Results & Data (ED) Vital Signs Vital Signs - 24 hr 12/05/22 15:00 12/05/22 15:10 12/05/22 15:00 Pulse Rate 80 83 Pulse Rate from SpO2 Sensor 80 83 Respiratory Rate 18 22 16 Respiratory Effort / Characteristics Non-Labored Blood Pressure 133/83 Blood Pressure [Left Arm] 130/88 Blood Pressure Mean 99 Blood Pressure Mean [Left Arm] 102 Pulse Oximetry 94 95 96 Oxygen Delivery Method Room Air Laboratory Data 12/05/22 13:45 12/05/22 13:45 Lab Results 12/05/22 12/05/22 12/05/22 Range/Units 13:45 13:45 13:45 WBC 7.12 (4.8-10.8) K/ul RBC 3.93 L (4.70-6.10) M/uL Hgb 12.8 L (14.0-18.0) g/dl Hct 38.2 L (42.0-52.0) % MCV 97.2 (80.0-100.0) fL MCH 32.6 (25.0-34.0) pg MCHC 33.5 (32.0-36.0) g/dL RDW Std Deviation 48.4 H (36.4-46.3) fL RDW Coeff of Santosh 13.7 (11.5-14.5) % Plt Count 180 (130-400) K/uL MPV 12.6 H (9.4-12.4) fL Immature Gran % (Auto) 0.7 % Neut % (Auto) 59.1 % Lymph % (Auto) 30.5 % [place] % (Auto) 7.7 % Eos % (Auto) 1.3 % Baso % (Auto) 0.7 % Neut # (Auto) 4.21 (1.40-6.50) K/uL Lymph # (Auto) 2.17 (1.2-3.4) K/uL [place] # (Auto) 0.55 (0.11-0.59) K/uL Eos # (Auto) 0.09 (0-0.50) K/uL Baso # (Auto) 0.05 (0-0.2) K/uL Immature Gran # (Auto) 0.05 (0.01-0.20) K/uL PT 11.3 (9.0-12.0) Seconds INR 1.0 (0.9-1.1) Sodium 139 (136-145) mmol/L Potassium 5.1 (3.5-5.1) mmol/L Chloride 107 (98-107) mmol/L Carbon Dioxide 23 (21-32) mmol/L Anion Gap 9 (3-11) BUN 34 H (6-23) mg/dl Creatinine 2.10 H (0.6-1.4) mg/dl Est Cr Clr Drug Dosing 38.5 ml/min Est GFR ( Amer) 33.9 ml/min Est GFR (Non-Af Amer) 29.3 ml/min BUN/Creatinine Ratio 16.2 (10-20) Glucose 116 H (70-99(Fasting)) mg/dl Calcium 8.9 (8.6-10.3) mg/dl Magnesium 2.1 (1.7-2.4) mg/dl Total Bilirubin 0.3 (0.2-1.0) mg/dl AST 34 (13-39) U/L ALT 51 (7-52) U/L Alkaline Phosphatase 80 (34-104) U/L Troponin I High Sens 52.8 H* (0-20) pg/ml B-Natriuretic Peptide (0-100) pg/ml Total Protein 6.9 (6.0-8.3) gm/dl Albumin 3.8 (3.4-5.0) gm/dl Globulin 3.1 (2.5-4.0) gm/dl Albumin/Globulin Ratio 1.2 (0.9-2) 12/05/22 Range/Units 13:45 WBC (4.8-10.8) K/ul RBC (4.70-6.10) M/uL Hgb (14.0-18.0) g/dl Hct (42.0-52.0) % MCV (80.0-100.0) fL MCH (25.0-34.0) pg MCHC (32.0-36.0) g/dL RDW Std Deviation (36.4-46.3) fL RDW Coeff of Santosh (11.5-14.5) % Plt Count (130-400) K/uL MPV (9.4-12.4) fL Immature Gran % (Auto) % Neut % (Auto) % Lymph % (Auto) % [place] % (Auto) % Eos % (Auto) % Baso % (Auto) % Neut # (Auto) (1.40-6.50) K/uL Lymph # (Auto) (1.2-3.4) K/uL [place] # (Auto) (0.11-0.59) K/uL Eos # (Auto) (0-0.50) K/uL Baso # (Auto) (0-0.2) K/uL Immature Gran # (Auto) (0.01-0.20) K/uL PT (9.0-12.0) Seconds INR (0.9-1.1) Sodium (136-145) mmol/L Potassium (3.5-5.1) mmol/L Chloride (98-107) mmol/L Carbon Dioxide (21-32) mmol/L Anion Gap (3-11) BUN (6-23) mg/dl Creatinine (0.6-1.4) mg/dl Est Cr Clr Drug Dosing ml/min Est GFR ( Amer) ml/min Est GFR (Non-Af Amer) ml/min BUN/Creatinine Ratio (10-20) Glucose (70-99(Fasting)) mg/dl Calcium (8.6-10.3) mg/dl Magnesium (1.7-2.4) mg/dl Total Bilirubin (0.2-1.0) mg/dl AST (13-39) U/L ALT (7-52) U/L Alkaline Phosphatase (34-104) U/L Troponin I High Sens (0-20) pg/ml B-Natriuretic Peptide 844 H (0-100) pg/ml Total Protein (6.0-8.3) gm/dl Albumin (3.4-5.0) gm/dl Globulin (2.5-4.0) gm/dl Albumin/Globulin Ratio (0.9-2) Administered Medications Allopurinol (Allopurinol 100 Mg Tab) 200 mg PO DAILY KIAN Stop: 01/05/23 08:59 Last Admin: 12/06/22 09:14 Dose: 200 mg Documented By: PEDRITO Amiodarone HCl (Amiodarone 200 Mg Tab) 200 mg PO BID [facility] Stop: 01/04/23 20:59 Last Admin: 12/06/22 09:14 Dose: 200 mg Documented By: Admin: 12/05/22 21:05 Dose: 200 mg Documented By: BOYD Aspirin (Aspirin 81 Mg Ectab) 81 mg PO DAILY@0800 KIAN Stop: 01/05/23 07:59 Last Admin: 12/06/22 09:14 Dose: 81 mg Documented By: PEDRITO Furosemide (Furosemide 40 Mg/4 Ml Vial) 80 mg IV BID [facility] Stop: 01/04/23 20:59 Last Admin: 12/06/22 09:14 Dose: 80 mg Documented By: Admin: 12/05/22 21:04 Dose: 80 mg Documented By: BOYD Heparin Sodium/Dextrose (Heparin Sodium/Dextrose) 25,000 units in 500 mls @ 32 mls/hr IV .[id number] [facility]; Protocol Stop: 01/04/23 17:14 Last Titration: 12/06/22 09:28 Dose: 1,600 units/hr, 32 mls/hr Documented By: PEDRITO Co-signed By: Admin: 12/06/22 09:14 Dose: 1,700 units/hr, 34 mls/hr Documented By: PEDRITO Co-signed By: Titration: 12/06/22 08:31 Dose: 1,700 units/hr, 34 mls/hr Documented By: PEDRITO Co-signed By: Titration: 12/06/22 07:07 Dose: 1,700 units/hr, 34 mls/hr Documented By: PEDRITO Co-signed By: BOYD Titration: 12/05/22 19:32 Dose: 1,700 units/hr, 34 mls/hr Documented By: PEDRITO Co-signed By: BOYD Admin: 12/05/22 17:48 Dose: 1,700 units/hr, 34 mls/hr Documented By: YVES Co-signed By: Levothyroxine Sodium (Levothyroxine Sodium 25 Mcg Tablet) 37.5 mcg PO DAILYBB [facility] Stop: 01/05/23 06:29 Last Admin: 12/06/22 06:12 Dose: 37.5 mcg Documented By: [employer] Metoprolol Succinate (Metoprolol Succ 50mg Ext Rel Tab) 50 mg PO BID KIAN Stop: 01/04/23 20:59 Last Admin: 12/06/22 09:14 Dose: 50 mg Documented By: Admin: 12/05/22 21:05 Dose: 50 mg Documented By: [employer] Discontinued Medications Furosemide (Furosemide 40 Mg/4 Ml Vial) 80 mg IV ONE ONE Stop: 12/05/22 14:08 Last Admin: 12/05/22 14:32 Dose: 80 mg Documented By: KMO Discharge Plan Visit Data Chief Complaint: Shortness of Breath/Dyspnea ED Provider: Bhumika Ji Discharge Problem: Dyspnea, CHF (congestive heart failure) Patient Disposition: Admitted As Inpatient Discharge Instructions Interventions: ED Discharge Assessment Last Done: 12/05/22 19:20
[2022-12-05 14:26] LABS: Basophils # (auto) 0.05 K/uL (0-0.2); Basophils % (auto) 0.7 %; Eosinophils # (auto) 0.09 K/uL (0-0.50); Eosinophils % (auto) 1.3 %; Hematocrit (blood only) 38.2 % (42.0-52.0); Hemoglobin 12.8 g/dl (14.0-18.0); Immature Granulocytes # (auto) 0.05 K/uL (0.01-0.20); Immature Granulocytes % (auto) 0.7 %; Lymphocytes # (auto) 2.17 K/uL (1.2-3.4); Lymphocytes % (auto) 30.5 %; Mean Corpuscular Hemoglobin 32.6 pg (25.0-34.0); Mean Corpuscular Hgb Conc 33.5 g/dL (32.0-36.0); Mean Corpuscular Volume 97.2 fL (80.0-100.0); Mean Platelet Volume 12.6 fL (9.4-12.4); Monocytes # (auto) 0.55 K/uL (0.11-0.59); Monocytes % (auto) 7.7 %; Neutrophils # (auto) 4.21 K/uL (1.40-6.50); Neutrophils % (auto) 59.1 %; Platelet Count 180 K/uL (130-400); RDW Coefficient of Variation 13.7 % (11.5-14.5); RDW Standard Deviation 48.4 fL (36.4-46.3); Red Blood Count 3.93 M/uL (4.70-6.10); White Blood Count 7.12 K/ul (4.8-10.8)
[2022-12-05 14:37] LABS: Prothrombin Time 11.3 Seconds (9.0-12.0)
--- NOTE | 2022-12-05 14:47 | XRay Report ---
XR chest 1V portable CLINICAL HISTORY: Shortness of breath. COMPARISON STUDY: Chest radiograph January 29, 2022. FINDINGS: A left subclavian biventricular pacer/AICD is in place. Cardiomediastinal silhouette is sta ble. There is no evidence for pulmonary edema. There is no pneumothorax or pleural effusion. There is no consolidation. No change in appearance of the chest. IMPRESSION: No acute cardiopulmonary findings. No change in appearance of the chest. ACT 112: Negative or not required by law. Electronically signed by: Memo Lee M.D. 12/05/2022 2:46 PM
--- NOTE | 2022-12-05 14:52 | History & Physical Report ---
Date of Service December 05, 2022 Assessment & Plan (1) Biventricular cardiac pacemaker in situ: (2) Atrial tachycardia: (3) Acute on chronic HFrEF (heart failure with reduced ejection fraction): (4) Nonischemic dilated cardiomyopathy: (5) Dyspnea: (6) JELENA (acute kidney injury): (7) Elevated LFTs: (8) CKD (chronic kidney disease), stage IV: (9) At risk for bleeding associated with 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s: (10) Iron deficiency anemia: Plan Admit to [facility] vitals as protocol activity bedrest with [facility] cardiology consult with dr peewee mcfarland ordered Heparin drip no bolus at this time because of high risk of stroke . continue metoprolol, amiodarone for rate control continue diuresis with iv lasix Code status: no code Patient is a dnr dni Hypothyroidism: continue synthroid at this time Dvt prophylaxis: on heparin drip History of Present Illness Chief Complaint: worsening shortness of breath over the past few days with rapid heart rate Primary Care Provider: Ioana Sno DO 77-year-old male with history of cardiomyopathy, biventricular pacemaker/ICD went to his clinic with complaints of shortness of breath which has gotten worse over the past few days.denies any chest pain Also noted that he has lower extremity edema and a weight gain of 6 to 7 pounds. Patient has not been taking his diuretics at this time Patient went to his clinic and was noted to have a fast heart rate and was referred to the ER. Patient was seen by cardiology and pacemaker settings were changed to DDIR. Patient has history of paroxysmal A-fib and anticoagulation was discontinued in 2020 secondary to rectal bleeding and anemia. Patient is being worked up in the ER at this time with cardiology on board. Allergies Allergy/AdvReac Type Severity Reaction Status Date / Time CALLIE Inhibitors AdvReac Intermediate COUGH Verified 01/29/22 17:14 Sulfa (Sulfonamide AdvReac Intermediate DIARRHEA Verified 01/29/22 17:14 Antibiotics) Home Medications Medication Instructions Recorded Confirmed Type allopurinol 100 mg tablet 200 mg PO DAILY 06/05/20 12/05/22 History aspirin 81 mg tablet,delayed 81 mg PO DAILY 06/05/20 12/05/22 History release levothyroxine 25 mcg tablet 37.5 mcg PO QAM 06/05/20 12/05/22 History amiodarone 200 mg tablet 200 mg PO BID 60 days #120 tabs 06/07/20 12/05/22 Rx metoprolol succinate 50 mg 50 mg PO BID 60 days #120 tabs 06/07/20 12/05/22 Rx tablet,extended release 24 hr slysadwc-[id number] acid 0.4 1 tab PO DAILY 12/24/21 12/05/22 History mg-lycopene 300 mcg-lutein 250 mcg tablet (Centrum Silver) triamcinolone acetonide 0.1 % 1 applic topical BID PRN AFFECTED 12/24/21 12/05/22 History topical cream AREA furosemide 40 mg tablet 40 mg PO BID #60 tabs 01/31/22 12/05/22 Rx potassium chloride 20 mEq 40 meq PO DAILY #60 tabs 01/31/22 12/05/22 Rx tablet,extended release(part/cryst) Past Med/Surg History Medical History (HFpEF) heart failure with preserved ejection fraction Cardiomyopathy Chronic anticoagulation Chronic systolic heart failure CKD (chronic kidney disease) stage 3, GFR 30-59 ml/min CKD (chronic kidney disease), stage IV Dyslipidemia GI bleed Gout HTN (hypertension) Iron deficiency anemia MGUS (monoclonal gammopathy of unknown significance) NICM (nonischemic cardiomyopathy) Pacemaker PAF (paroxysmal atrial fibrillation) Prediabetes Prostate cancer (03/15/13) "STAGING: Prostate, adenocarcinoma, meenu 3 + 4, PSA 17.38, cT2b, group IIB Prostate gland size - 40 cc (by TRUS, Dr. Joyner) initially followed with active surveillance PSAD - 0.434 TREATMENT: 1. 6 months of hormonal suppression 2. Status post completion of IMRT/IGRT 09/02/2016 received 8100 cGy" On 04/18/16 15:06 Lynne Henao wrote "STAGING: Prostate, adenocarcinoma, meenu 3 + 4, PSA 17.38, cT2b, group IIB Prostate gland size - 40 cc (by TRUS, Dr. Joyner) PSAD - 0.434" Secondary hyperparathyroidism of renal origin Supratherapeutic INR Tubular adenoma of rectum Surgical History History of implantable cardioverter-defibrillator (ICD) placement History of tonsillectomy Hx of colonoscopy Family History Father Heart disease age 73 - [place] Uncle Heart disease paternal Grandfather (Paternal) Heart disease Social History Smoking Status: Never smoker Second Hand Exposure: No; Do You Dip or Chew Tobacco: No; Hx Alcohol Use: No Hx Substance Use: No Preferred Language: Sudanese Communication Ability: Effective Waitstaff Captain Required: No Beliefs That Will Affect Care: None marital status: Current Living Situation: Alone How many Children do You have: 2 Feels Safe at Home: Yes Assistive Devices: None Review of Systems Review of Systems: Reviewed all systems as noted in H/P , rest reviewed as negative Physical Exam Physical Exam: HEENT:No JVD , Normocephalic , atraumatic CV: S1/S2+ , systolic murmur Resp: Air entry present bilaterally.bilateral crackles + , no wheeze . GI: Abdomen soft mildly distended . Musculoskeletal: examined for joint tenderness. Skin: no rashes Psych: Normal affect Neuro: Patient is awake alert not in distress , No focal neuro deficits noted Ext: bilateral lower extremity edema +. Results & Data Results & Data Vital Signs (Past 12 Hours) Vital Signs Temp Pulse Resp BP Pulse Ox O2 Del Method 12/05/22 13:37 127 H 12/05/22 13:33 Room Air 12/05/22 13:33 Room Air 12/05/22 13:33 36.5 C 124 H 21 142/112 H 94 Room Air Laboratory Results Laboratory Results WBC 7.12 K/ul (4.8-10.8) 12/05/22 13:45 RBC 3.93 M/uL (4.70-6.10) L 12/05/22 13:45 Hgb 12.8 g/dl (14.0-18.0) L 12/05/22 13:45 Hct 38.2 % (42.0-52.0) L 12/05/22 13:45 MCV 97.2 fL (80.0-100.0) 12/05/22 13:45 MCH 32.6 pg (25.0-34.0) 12/05/22 13:45 MCHC 33.5 g/dL (32.0-36.0) 12/05/22 13:45 RDW Std Deviation 48.4 fL (36.4-46.3) H 12/05/22 13:45 RDW Coeff of Santosh 13.7 % (11.5-14.5) 12/05/22 13:45 Plt Count 180 K/uL (130-400) 12/05/22 13:45 MPV 12.6 fL (9.4-12.4) H 12/05/22 13:45 Immature Gran % (Auto) 0.7 % 12/05/22 13:45 Neut % (Auto) 59.1 % 12/05/22 13:45 Lymph % (Auto) 30.5 % 12/05/22 13:45 [place] % (Auto) 7.7 % 12/05/22 13:45 Eos % (Auto) 1.3 % 12/05/22 13:45 Baso % (Auto) 0.7 % 12/05/22 13:45 Neut # (Auto) 4.21 K/uL (1.40-6.50) 12/05/22 13:45 Lymph # (Auto) 2.17 K/uL (1.2-3.4) 12/05/22 13:45 [place] # (Auto) 0.55 K/uL (0.11-0.59) 12/05/22 13:45 Eos # (Auto) 0.09 K/uL (0-0.50) 12/05/22 13:45 Baso # (Auto) 0.05 K/uL (0-0.2) 12/05/22 13:45 Immature Gran # (Auto) 0.05 K/uL (0.01-0.20) 12/05/22 13:45 PT 11.3 Seconds (9.0-12.0) 12/05/22 13:45 INR 1.0 (0.9-1.1) 12/05/22 13:45 Impressions Chest X-Ray 12/05/22 13:51 XR chest 1V portable CLINICAL HISTORY: Shortness of breath. COMPARISON STUDY: Chest radiograph January 29, 2022. FINDINGS: A left subclavian biventricular pacer/AICD is in place. Cardiomediastinal silhouette is stable. There is no evidence for pulmonary edema. There is no pneumothorax or pleural effusion. There is no consolidation. No change in appearance of the chest. IMPRESSION: No acute cardiopulmonary findings. No change in appearance of the chest. ACT 112: Negative or not required by law. Electronically signed by: Memo Lee M.D. 12/05/2022 2:46 PM
--- NOTE | 2022-12-05 16:04 | Communication Note ---
Date of Service: December 05, 2022 Addendum to cardiology consultation, preliminary See full consultation per Amelie Storm Patient is a 77-year-old male with underlying cardiac issues which include Dilated nonischemic cardiomyopathy with severe LV dysfunction, diagnosed 10/2009 (LVEF as low as 25%) Chronic biventricular CHF- last EF 55-60% per echo 01/2022 Status post biventricular pacemaker/defibrillator 09/04/2010 Generator change 10/28/2014 Status post July 09, 2022 generator change with a Nexis [employer] MRI CLOTHES SEPARATOR-D SureScan [id number], Serial Number [id number]. History of frequent ventricular ectopy with resultant past reduction in biventricular pacemaker function Paroxysmal atrial fibrillation History of undefined rectal bleeding and symptomatic anemia requiring blood transfusions 06/2020 Endoscopically declined, anticoagulation with Coumadin held. Chart history of MGUS and iron deficiency anemia CKD stage III-IV Hypertension Dyslipidemia Patient presents now with acutely decompensated systolic heart failure possibly secondary to underlying cardiomyopathic process ,lapse in medical therapy possibly exacerbated by atrial tachycardia, atypical atrial flutter with rapid ventricular pacing Echocardiogram demonstrates diffuse LV dysfunction EF 25 to 30% with apical thrombus Initial rhythm demonstrated likely atypical flutter with rapid ventricular response rate. Device reprogrammed to DDIR mode at 80 bpm Diuretics initiated with patient responding Laboratory studies pending Impression: 1. Acute decompensated systolic heart failure with reduced ejection fraction in comparison to most recent studies. Exam right greater than left heart failure with diffuse edema 2. Atypical atrial flutter/atrial tachycardia with rapid ventricular pacing 3. LV apical thrombus 4. BiV pacer defibrillator in place for past atrial and ventricular arrhythmias Plan as outlined. Anticoagulation initiated with IV heparin. IV diuresis. Pacemaker reprogrammed to avoid tracking atrial arrhythmia. Continue metoprolol and amiodarone given past ventricular arrhythmias Cardiology will follow
[2022-12-05 16:32] LABS: Albumin Level 3.8 gm/dl (3.4-5.0); Bilirubin,Total 0.3 mg/dl (0.2-1.0); Calcium 8.9 mg/dl (8.6-10.3); Magnesium 2.1 mg/dl (1.7-2.4); Potassium 5.1 mmol/L (3.5-5.1)
[2022-12-05 16:38] LABS: Albumin Globulin Ratio 1.2 (0.9-2); BUN Creatinine Ratio 16.2 (10-20); Creatinine Clr Calc Pharmacy 38.5 ml/min; Est GFR (African American) 33.9 ml/min; Est GFR (Non-African American) 29.3 ml/min; Globulin 3.1 gm/dl (2.5-4.0); Total Protein 6.9 gm/dl (6.0-8.3)
[2022-12-05 16:42] LABS: Troponin I High Sensitivity 52.8 pg/ml (0-20)
[2022-12-05] MEDS ORDERED: Heparin IV Adult Wt-Based Standard *NO* Bolus Protocol IV SCH (17:15)
[2022-12-05] MEDS: HEPARIN SODIUM/DEXTROSE 25,000 UNITS/500 ML BAG IV SCH (17:48)
[2022-12-05] MEDS ORDERED: HEPARIN SODIUM/DEXTROSE 25,000 UNITS/500 ML BAG IV SCH (19:12)
[2022-12-05] MEDS ORDERED: Heparin IV Adult Wt-Based Standard *NO* Bolus Protocol IV ONE (19:12)
[2022-12-05] MEDS: FUROSEMIDE 40 MG/4 ML VIAL IV SCH (21:04)
[2022-12-05] MEDS: AMIODARONE 200 MG TAB PO SCH (21:05)
[2022-12-05] MEDS: METOPROLOL SUCC 50MG EXT REL TAB PO SCH (21:05)
[2022-12-05 21:48] LABS: Hematocrit (blood only) 37.4 % (42.0-52.0); Hemoglobin 12.6 g/dl (14.0-18.0); Mean Corpuscular Hemoglobin 32.6 pg (25.0-34.0); Mean Corpuscular Hgb Conc 33.7 g/dL (32.0-36.0); Mean Corpuscular Volume 96.9 fL (80.0-100.0); Mean Platelet Volume 12.5 fL (9.4-12.4); Platelet Count 148 K/uL (130-400); RDW Coefficient of Variation 13.5 % (11.5-14.5); RDW Standard Deviation 47.9 fL (36.4-46.3); Red Blood Count 3.86 M/uL (4.70-6.10); White Blood Count 5.93 K/ul (4.8-10.8)
[2022-12-06 01:25] LABS: Partial Thromboplastin Ratio 1.9
[2022-12-06 01:26] LABS: Partial Thromboplastin Time 52.4 Seconds (21.0-31.0)
[2022-12-06] MEDS: LEVOTHYROXINE SODIUM 25 MCG TABLET PO SCH (06:12)
[2022-12-06 08:27] LABS: Hematocrit (blood only) 34.8 % (42.0-52.0); Hemoglobin 11.8 g/dl (14.0-18.0); Mean Corpuscular Hemoglobin 32.4 pg (25.0-34.0); Mean Corpuscular Hgb Conc 33.9 g/dL (32.0-36.0); Mean Corpuscular Volume 95.6 fL (80.0-100.0); Mean Platelet Volume 12.6 fL (9.4-12.4); Platelet Count 137 K/uL (130-400); RDW Coefficient of Variation 13.4 % (11.5-14.5); RDW Standard Deviation 46.8 fL (36.4-46.3); Red Blood Count 3.64 M/uL (4.70-6.10); White Blood Count 4.62 K/ul (4.8-10.8)
[2022-12-06 08:52] LABS: Partial Thromboplastin Ratio 2.6
[2022-12-06] MEDS ORDERED: ASPIRIN 81 MG ECTAB PO SCH (09:00)
[2022-12-06] MEDS: allopurinoL 100 MG TAB PO SCH (09:14)
[2022-12-06] MEDS: ASPIRIN 81 MG ECTAB PO SCH (09:14)
[2022-12-06] MEDS: AMIODARONE 200 MG TAB PO SCH ×2 (09:14→20:55)
[2022-12-06] MEDS: HEPARIN SODIUM/DEXTROSE 25,000 UNITS/500 ML BAG IV SCH (09:14)
[2022-12-06] MEDS: METOPROLOL SUCC 50MG EXT REL TAB PO SCH ×2 (09:14→20:55)
[2022-12-06] MEDS: FUROSEMIDE 40 MG/4 ML VIAL IV SCH (09:14)
[2022-12-06 09:27] LABS: Partial Thromboplastin Time 73.8 Seconds (21.0-31.0)
--- NOTE | 2022-12-06 10:26 | Cardiology Progress Note ---
Date of Service December 06, 2022 Assessment & Plan (1) Acute on chronic HFrEF (heart failure with reduced ejection fraction): (2) Atrial tachycardia: (3) Biventricular cardiac pacemaker in situ: (4) Left ventricular apical thrombus: Plan 77-year-old male with nonischemic cardiomyopathy with previously improved LV systolic function presents now with acute on chronic systolic heart failure and reduced ejection fraction. Echocardiogram demonstrates apical LV thrombus in addition to above findings. Patient in atrial tachycardia is likely atypical atrial flutter on presentation with rapid paced ventricular response. Pacemaker defibrillator reprogrammed Patient responding to diuretics Plan: Continue anticoagulation with IV heparin with planned conversion to warfarin Continue IV diuresis following renal function closely. Lab work pending for today Continue amiodarone 200 mg/day given past history of ventricular arrhythmias with prior appropriate device discharge. Continue metoprolol succinate 50 mg twice per day Admission and Anticipated Discharge Date Admission Date: December 05, 2022 Subjective Patient seen and examined, chart, medications, telemetry reviewed Clinically feels improved good diuresis overnight. Breathlessness substantially improved oxygen saturations reasonable on room air Weight down approximately 2 kg but still with moderate edema on exam Review of Systems Review of Systems: All systems reviewed & are unremarkable except as noted in Subjective Physical Exam Constitutional: no acute distress Eyes: PERRL, conjunctivae normal, anicteric sclerae ENMT: external ear and nose normal, oropharynx normal Neck: trachea midline, no thyromegaly Respiratory: normal respiratory effort, lungs clear to auscultation Cardiovascular: Rate/Rhythm: regular rhythm (Paced) Vessels: no JVD Extremities: + edema Gastrointestinal (Abdomen): normal bowel sounds, soft, nontender, no hepatosplenomegaly Musculoskeletal: no cyanosis or clubbing, extremities motor strength 5/5 Results & Data Vital Signs (Past 12 Hours) Vital Signs Temp Pulse Pulse Resp BP BP Pulse Ox 12/06/22 07:31 36.8 C 78 18 121/82 91 12/06/22 07:12 80 12/06/22 04:00 36.8 C 89 18 102/68 95 12/05/22 23:53 36.9 C 81 16 106/68 94 O2 Del Method 12/06/22 07:31 Room Air 12/06/22 07:12 12/06/22 04:00 Room Air 12/05/22 23:53 Room Air Laboratory Results Laboratory Results - last 24 hr 12/05/22 12/05/22 12/05/22 13:45 13:45 13:45 WBC 7.12 RBC 3.93 L Hgb 12.8 L Hct 38.2 L MCV 97.2 MCH 32.6 MCHC 33.5 RDW Std Deviation 48.4 H RDW Coeff of Santosh 13.7 Plt Count 180 MPV 12.6 H Immature Gran % (Auto) 0.7 Neut % (Auto) 59.1 Lymph % (Auto) 30.5 [place] % (Auto) 7.7 Eos % (Auto) 1.3 Baso % (Auto) 0.7 Neut # (Auto) 4.21 Lymph # (Auto) 2.17 [place] # (Auto) 0.55 Eos # (Auto) 0.09 Baso # (Auto) 0.05 Immature Gran # (Auto) 0.05 PT 11.3 INR 1.0 APTT PTT Ratio Sodium 139 Potassium 5.1 Chloride 107 Carbon Dioxide 23 Anion Gap 9 BUN 34 H Creatinine 2.10 H Est Cr Clr Drug Dosing 38.5 Est GFR ( Amer) 33.9 Est GFR (Non-Af Amer) 29.3 BUN/Creatinine Ratio 16.2 Glucose 116 H Calcium 8.9 Magnesium 2.1 Total Bilirubin 0.3 AST 34 ALT 51 Alkaline Phosphatase 80 Troponin I High Sens 52.8 H* B-Natriuretic Peptide Total Protein 6.9 Albumin 3.8 Globulin 3.1 Albumin/Globulin Ratio 1.2 SARS-CoV-2, RNA, NAAT 12/05/22 12/05/22 12/05/22 13:45 15:58 21:29 WBC 5.93 RBC 3.86 L Hgb 12.6 L Hct 37.4 L MCV 96.9 MCH 32.6 MCHC 33.7 RDW Std Deviation 47.9 H RDW Coeff of Santosh 13.5 Plt Count 148 MPV 12.5 H Immature Gran % (Auto) Neut % (Auto) Lymph % (Auto) [place] % (Auto) Eos % (Auto) Baso % (Auto) Neut # (Auto) Lymph # (Auto) [place] # (Auto) Eos # (Auto) Baso # (Auto) Immature Gran # (Auto) PT INR APTT PTT Ratio Sodium Potassium Chloride Carbon Dioxide Anion Gap BUN Creatinine Est Cr Clr Drug Dosing Est GFR ( Amer) Est GFR (Non-Af Amer) BUN/Creatinine Ratio Glucose Calcium Magnesium Total Bilirubin AST ALT Alkaline Phosphatase Troponin I High Sens B-Natriuretic Peptide 844 H Total Protein Albumin Globulin Albumin/Globulin Ratio SARS-CoV-2, RNA, NAAT NEGATIVE 12/06/22 12/06/22 12/06/22 00:15 07:20 07:20 WBC 4.62 L RBC 3.64 L Hgb 11.8 L Hct 34.8 L MCV 95.6 MCH 32.4 MCHC 33.9 RDW Std Deviation 46.8 H RDW Coeff of Santosh 13.4 Plt Count 137 MPV 12.6 H Immature Gran % (Auto) Neut % (Auto) Lymph % (Auto) [place] % (Auto) Eos % (Auto) Baso % (Auto) Neut # (Auto) Lymph # (Auto) [place] # (Auto) Eos # (Auto) Baso # (Auto) Immature Gran # (Auto) PT INR APTT 52.4 H* PTT Ratio 1.9 Sodium Pending Potassium Pending Chloride Pending Carbon Dioxide Pending Anion Gap Pending BUN Pending Creatinine Pending Est Cr Clr Drug Dosing Pending Est GFR ( Amer) Pending Est GFR (Non-Af Amer) Pending BUN/Creatinine Ratio Pending Glucose Pending Calcium Pending Magnesium Total Bilirubin AST ALT Alkaline Phosphatase Troponin I High Sens B-Natriuretic Peptide Total Protein Albumin Globulin Albumin/Globulin Ratio SARS-CoV-2, RNA, NAAT 12/06/22 07:20 WBC RBC Hgb Hct MCV MCH MCHC RDW Std Deviation RDW Coeff of Santosh Plt Count MPV Immature Gran % (Auto) Neut % (Auto) Lymph % (Auto) [place] % (Auto) Eos % (Auto) Baso % (Auto) Neut # (Auto) Lymph # (Auto) [place] # (Auto) Eos # (Auto) Baso # (Auto) Immature Gran # (Auto) PT INR APTT 73.8 H* PTT Ratio 2.6 Sodium Potassium Chloride Carbon Dioxide Anion Gap BUN Creatinine Est Cr Clr Drug Dosing Est GFR ( Amer) Est GFR (Non-Af Amer) BUN/Creatinine Ratio Glucose Calcium Magnesium Total Bilirubin AST ALT Alkaline Phosphatase Troponin I High Sens B-Natriuretic Peptide Total Protein Albumin Globulin Albumin/Globulin Ratio SARS-CoV-2, RNA, NAAT
[2022-12-06 11:17] LABS: BUN Creatinine Ratio 16.7 (10-20); Calcium 8.3 mg/dl (8.6-10.3); Creatinine Clr Calc Pharmacy 36.4 ml/min; Est GFR (African American) 32.8 ml/min; Est GFR (Non-African American) 28.3 ml/min; Potassium 3.6 mmol/L (3.5-5.1)
--- NOTE | 2022-12-06 14:07 | Hospitalist Progress Note ---
Date of Service December 06, 2022 Assessment & Plan (1) Acute on chronic HFrEF (heart failure with reduced ejection fraction): Plan: Has significant cardiac history of dilated cardiomyopathy Presented with increasing edema and increasing shortness of breath Recently his furosemide was changed to torsemide and he was noted to be tachycardic as well at presentation Started with intravenous Lasix with profuse diuresis Has been feeling much better and edema of the legs and shortness of breath have been improving Appreciate cardiology input and recommendation (2) Biventricular cardiac pacemaker in situ: Plan: Has extensive cardiac history as documented in cardiology note; 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 History of frequent ventricular ectopy with resultant past reduction in biventricular pacemaker function Paroxysmal atrial fibrillation History of undefined rectal bleeding and symptomatic anemia requiring blood transfusions 06/2020 Endoscopically declined, anticoagulation with Coumadin held. (3) Nonischemic dilated cardiomyopathy: Plan: Echo of the heart showed: Aortic valve sclerosis mild without significant stenosis, LV is moderately dilated, mild concentric LVH, inferior wall is severely hypokinetic all other wall segments are moderately hypokinetic in a diffuse manner, EF 30%, moderate- sized apical thrombus, LA severely dilated, mitral valve annulus is dilated, there is moderate to severe mitral regurgitation and there is moderate tricuspid regurgitation Significant dilated cardiomyopathy with reduced EF (4) Atrial tachycardia: Plan: History of PAF and noted to have atrial tachycardia Rate has been adjusted (5) Dyspnea: Plan: As above (6) JELENA (acute kidney injury): Plan: Creatinine noted to be high at 2.10 at presentation not significant difference compared with creatinine of 2.53 on 01/31/2022 Has been getting intravenous Lasix and creatinine is expected to worsen We will monitor kidney function (7) Elevated LFTs: Plan: Likely secondary to congestion Reverted to normal as of this morning (8) CKD (chronic kidney disease), stage IV: (9) At risk for bleeding associated with 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s: (10) Iron deficiency anemia: Plan Code status: no code Patient is a DNR DNI Hypothyroidism: continue synthroid at this time Dvt prophylaxis: on heparin drip Has LA thrombus and will need to continue anticoagulation preferably with Coumadin Admission and Anticipated Discharge Date Admission Date: December 05, 2022 Subjective 12/06/2022 The patient was seen and examined in telemetry unit He was admitted with fluid overload secondary to biventricular heart failure with cardiomyopathy with increasing shortness of breath Has been feeling much better since admission with profuse diuresis Denies any chest pain and her palpitation Shortness of breath is improved Review of Systems Review of Systems: All systems reviewed and are unremarkable except as noted below Physical Exam Physical Exam: Lying in bed comfortably Constitutional: well developed, well nourished, + ill appearing and + obese Eyes: PERRL, conjunctivae normal, anicteric sclerae ENMT: external ear and nose normal, oropharynx normal Neck: trachea midline, no thyromegaly Respiratory: no respiratory distress Auscultation: + diminished lung sounds and + crackles (Crackles bibasally) Cardiovascular: Rate/Rhythm: regular rate and regular rhythm; not tachycardic Heart Sounds: normal S1, normal S2 and + murmur Extremities: + edema (1+ edema bilaterally) Gastrointestinal (Abdomen): Inspection/Auscultation: normal bowel sounds; abdomen not distended Percussion/Palpation: abdomen soft; abdomen nontender Musculoskeletal: No acute arthritis involving any of the joints Neurologic: normal touch/pain/proprioception; + does not move all extremities and no focal motor deficits Psychiatric: A+Ox3, euthymic affect Lymphatic: no cervical or axillary lymphadenopathy Results & Data Results & Data Vital Signs (Past 12 Hours) Vital Signs Temp Pulse Pulse Resp BP Pulse Ox O2 Del Method 12/06/22 11:28 36.9 C 71 18 123/63 92 Room Air 12/06/22 07:31 36.8 C 78 18 121/82 91 Room Air 12/06/22 07:12 80 12/06/22 04:00 36.8 C 89 18 102/68 95 Room Air Laboratory Results Short CBC 12/05/22 12/05/22 12/06/22 Range/Units 13:45 21:29 07:20 WBC 7.12 5.93 4.62 L (4.8-10.8) K/ul Hgb 12.8 L 12.6 L 11.8 L (14.0-18.0) g/dl Hct 38.2 L 37.4 L 34.8 L (42.0-52.0) % Plt Count 180 148 137 (130-400) K/uL BMP 12/05/22 12/06/22 13:45 07:20 Sodium 139 141 Potassium 5.1 3.6 D Chloride 107 105 Carbon Dioxide 23 26 BUN 34 H 36 H Creatinine 2.10 H 2.16 H Glucose 116 H 110 H Calcium 8.9 8.3 L Liver Function 12/05/22 Range/Units 13:45 Total Bilirubin 0.3 (0.2-1.0) mg/dl AST 34 (13-39) U/L ALT 51 (7-52) U/L Alkaline Phosphatase 80 (34-104) U/L Albumin 3.8 (3.4-5.0) gm/dl Medications Administered Current Inpatient Medications Acetaminophen (Acetaminophen 325 Mg Tab) 650 mg PO Q4H PRN PRN Reason: Pain or Fever Stop: 01/04/23 19:11 Allopurinol (Allopurinol 100 Mg Tab) 200 mg PO DAILY [facility] Stop: 01/05/23 08:59 Last Admin: 12/06/22 09:14 Dose: 200 mg Amiodarone HCl (Amiodarone 200 Mg Tab) 200 mg PO BID [facility] Stop: 01/04/23 20:59 Last Admin: 12/06/22 09:14 Dose: 200 mg Aspirin (Aspirin 81 Mg Ectab) 81 mg PO DAILY@0800 [facility] Stop: 01/05/23 07:59 Last Admin: 12/06/22 09:14 Dose: 81 mg Furosemide (Furosemide 40 Mg/4 Ml Vial) 80 mg IV BID [facility] Stop: 01/04/23 20:59 Last Admin: 12/06/22 09:14 Dose: 80 mg Heparin Sodium/Dextrose (Heparin Sodium/Dextrose) 25,000 units in 500 mls @ 32 mls/hr IV .[id number] [facility]; Protocol Stop: 01/04/23 17:14 Last Titration: 12/06/22 09:28 Dose: 1,600 units/hr, 32 mls/hr Levothyroxine Sodium (Levothyroxine Sodium 25 Mcg Tablet) 37.5 mcg PO DAILYBB [facility] Stop: 01/05/23 06:29 Last Admin: 12/06/22 06:12 Dose: 37.5 mcg Metoprolol Succinate (Metoprolol Succ 50mg Ext Rel Tab) 50 mg PO BID [facility] Stop: 01/04/23 20:59 Last Admin: 12/06/22 09:14 Dose: 50 mg
[2022-12-06 15:54] LABS: Partial Thromboplastin Ratio 2.4
[2022-12-06 16:42] LABS: Partial Thromboplastin Time 67.4 Seconds (21.0-31.0)
[2022-12-07] MEDS: HEPARIN SODIUM/DEXTROSE 25,000 UNITS/500 ML BAG IV SCH ×3 (00:07→16:00)
[2022-12-07] MEDS: LEVOTHYROXINE SODIUM 25 MCG TABLET PO SCH (05:37)
[2022-12-07 08:18] LABS: Basophils # (auto) 0.04 K/uL (0-0.2); Basophils % (auto) 0.9 %; Eosinophils # (auto) 0.04 K/uL (0-0.50); Eosinophils % (auto) 0.9 %; Hematocrit (blood only) 35.3 % (42.0-52.0); Hemoglobin 12.2 g/dl (14.0-18.0); Immature Granulocytes # (auto) 0.02 K/uL (0.01-0.20); Immature Granulocytes % (auto) 0.4 %; Lymphocytes # (auto) 1.22 K/uL (1.2-3.4); Lymphocytes % (auto) 26.9 %; Mean Corpuscular Hemoglobin 32.4 pg (25.0-34.0); Mean Corpuscular Hgb Conc 34.6 g/dL (32.0-36.0); Mean Corpuscular Volume 93.9 fL (80.0-100.0); Mean Platelet Volume 12.6 fL (9.4-12.4); Monocytes % (auto) 8.8 %; Neutrophils # (auto) 2.82 K/uL (1.40-6.50); Neutrophils % (auto) 62.1 %; Platelet Count 146 K/uL (130-400); RDW Coefficient of Variation 13.5 % (11.5-14.5); RDW Standard Deviation 46.1 fL (36.4-46.3); Red Blood Count 3.76 M/uL (4.70-6.10); White Blood Count 4.54 K/ul (4.8-10.8)
[2022-12-07 08:32] LABS: BUN Creatinine Ratio 16.2 (10-20); Calcium 8.5 mg/dl (8.6-10.3); Creatinine Clr Calc Pharmacy 31.1 ml/min; Est GFR (African American) 27.1 ml/min; Est GFR (Non-African American) 23.4 ml/min; Magnesium 1.9 mg/dl (1.7-2.4); Phosphorus 4.6 mg/dl (2.5-4.9); Potassium 3.3 mmol/L (3.5-5.1)
[2022-12-07] MEDS: allopurinoL 100 MG TAB PO SCH (08:47)
[2022-12-07] MEDS: ASPIRIN 81 MG ECTAB PO SCH (08:47)
[2022-12-07] MEDS: METOPROLOL SUCC 50MG EXT REL TAB PO SCH ×2 (08:48→20:01)
[2022-12-07] MEDS: AMIODARONE 200 MG TAB PO SCH ×2 (08:48→20:02)
[2022-12-07 08:57] LABS: Partial Thromboplastin Ratio 2.5
[2022-12-07 09:18] LABS: Partial Thromboplastin Time 69.7 Seconds (21.0-31.0)
--- NOTE | 2022-12-07 12:32 | Cardiology Progress Note ---
Date of Service December 07, 2022 Assessment & Plan (1) Acute on chronic HFrEF (heart failure with reduced ejection fraction): (2) Atrial tachycardia: (3) Biventricular cardiac pacemaker in situ: (4) Left ventricular apical thrombus: (5) CKD (chronic kidney disease), stage IV: Plan 77-year-old male with nonischemic cardiomyopathy with previously improved LV systolic function presents now with acute on chronic systolic heart failure and reduced ejection fraction. Echocardiogram demonstrates apical LV thrombus in addition to above findings. Patient in atrial tachycardia is likely atypical atrial flutter on presentation with rapid paced ventricular response. Pacemaker defibrillator reprogrammed Patient responding to diuretics Plan: Continue anticoagulation with IV heparin with planned conversion to warfarin Continue IV diuresis following renal function closely. Lab work pending for today Continue amiodarone 200 mg/day given past history of ventricular arrhythmias with prior appropriate device discharge. Continue metoprolol succinate 50 mg twice per day 12/07/2022 Clinically improved after control of arrhythmia and diuresis. Still mild lower extremity edema congestive heart failure improved Renal function with mild decline with underlying stage IV renal insufficiency past acute renal failure in the setting of congestive heart failure Plan: Continue amiodarone and metoprolol as ordered IV furosemide discontinued. Restart oral furosemide at 40 mg twice daily this evening Single dose potassium supplement for medical events now Patient on IV heparin and will transition to warfarin for paroxysmal at rial fibrillation as well as LV apical thrombus Admission and Anticipated Discharge Date Admission Date: December 05, 2022 Subjective Patient was seen and examined, chart, medications, telemetry reviewed. Clinically improved this morning. Edema substantially improved no worsening dyspnea. Good oxygenation on room air. No further tachyarrhythmias Pacer defibrillator reprogrammed back to DDDR mode yesterday maintaining sinus rhythm with biventricular pacing Review of Systems Review of Systems: All systems reviewed & are unremarkable except as noted in Subjective Physical Exam Constitutional: no acute distress Eyes: PERRL, conjunctivae normal, anicteric sclerae ENMT: external ear and nose normal, oropharynx normal Neck: trachea midline, no thyromegaly Respiratory: normal respiratory effort, lungs clear to auscultation Cardiovascular: Rate/Rhythm: regular rhythm (Paced) Vessels: no JVD Extremities: + edema Chest (Breasts): Chest: + pacemaker (Pacer defibrillator left chest without irritation) Gastrointestinal (Abdomen): normal bowel sounds, soft, nontender, no hepatosplenomegaly Musculoskeletal: no cyanosis or clubbing, extremities motor strength 5/5 Results & Data Vital Signs (Past 12 Hours) Vital Signs Temp Pulse Pulse Resp BP BP Pulse Ox 12/07/22 11:26 36.8 C 73 18 126/80 92 12/07/22 07:45 36.8 C 69 18 143/85 H 91 12/07/22 07:28 70 12/07/22 04:06 36.8 C 71 16 106/66 92 O2 Del Method 12/07/22 11:26 Room Air 12/07/22 07:45 Room Air 12/07/22 07:28 12/07/22 04:06 Room Air Laboratory Results Laboratory Results - last 24 hr 12/06/22 12/07/22 12/07/22 14:52 07:06 07:06 WBC 4.54 L RBC 3.76 L Hgb 12.2 L Hct 35.3 L MCV 93.9 MCH 32.4 MCHC 34.6 RDW Std Deviation 46.1 RDW Coeff of Santosh 13.5 Plt Count 146 MPV 12.6 H Immature Gran % (Auto) 0.4 Neut % (Auto) 62.1 Lymph % (Auto) 26.9 [place] % (Auto) 8.8 Eos % (Auto) 0.9 Baso % (Auto) 0.9 Neut # (Auto) 2.82 Lymph # (Auto) 1.22 [place] # (Auto) 0.40 Eos # (Auto) 0.04 Baso # (Auto) 0.04 Immature Gran # (Auto) 0.02 APTT 67.4 H* PTT Ratio 2.4 Sodium 141 Potassium 3.3 L Chloride 104 Carbon Dioxide 28 Anion Gap 9 BUN 41 H Creatinine 2.53 H D Est Cr Clr Drug Dosing 31.1 Est GFR ( Amer) 27.1 Est GFR (Non-Af Amer) 23.4 BUN/Creatinine Ratio 16.2 Glucose 110 H Calcium 8.5 L Phosphorus 4.6 Magnesium 1.9 12/07/22 07:06 WBC RBC Hgb Hct MCV MCH MCHC RDW Std Deviation RDW Coeff of Santosh Plt Count MPV Immature Gran % (Auto) Neut % (Auto) Lymph % (Auto) [place] % (Auto) Eos % (Auto) Baso % (Auto) Neut # (Auto) Lymph # (Auto) [place] # (Auto) Eos # (Auto) Baso # (Auto) Immature Gran # (Auto) APTT 69.7 H* PTT Ratio 2.5 Sodium Potassium Chloride Carbon Dioxide Anion Gap BUN Creatinine Est Cr Clr Drug Dosing Est GFR ( Amer) Est GFR (Non-Af Amer) BUN/Creatinine Ratio Glucose Calcium Phosphorus Magnesium
[2022-12-07] MEDS ORDERED: POTASSIUM CHLORIDE CRTAB 20 MEQ TABCR PO ONE (12:34)
--- NOTE | 2022-12-07 14:04 | Hospitalist Progress Note ---
Date of Service December 07, 2022 Assessment & Plan (1) Acute on chronic HFrEF (heart failure with reduced ejection fraction): Plan: Has significant cardiac history of dilated cardiomyopathy Presented with increasing edema and increasing shortness of breath Recently his furosemide was changed to torsemide and he was noted to be tachycardic as well at presentation Started with intravenous Lasix with profuse diuresis Has been feeling much better and edema of the legs and shortness of breath have been improving Appreciate cardiology input and recommendation Has had enough diuresis in the IV Lasix have been changed to oral We will monitor electrolytes and PRP while in the hospital Likely discharge tomorrow (2) Biventricular cardiac pacemaker in situ: Plan: Has extensive cardiac history as documented in cardiology note; 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 History of frequent ventricular ectopy with resultant past reduction in biventricular pacemaker function Paroxysmal atrial fibrillation History of undefined rectal bleeding and symptomatic anemia requiring blood transfusions 06/2020 Endoscopically declined, anticoagulation with Coumadin held. Pacer have been checked and adjusted to control the heart rate (3) Nonischemic dilated cardiomyopathy: Plan: Echo of the heart showed: Aortic valve sclerosis mild without significant stenosis, LV is moderately dilated, mild concentric LVH, inferior wall is severely hypokinetic all other wall segments are moderately hypokinetic in a diffuse manner, EF 30%, moderate- sized apical thrombus, LA severely dilated, mitral valve annulus is dilated, there is moderate to severe mitral regurgitation and there is moderate tricuspid regurgitation Significant dilated cardiomyopathy with reduced EF (4) Atrial tachycardia: Plan: History of PAF and noted to have atrial tachycardia Rate has been adjusted (5) Dyspnea: Plan: As above (6) JELENA (acute kidney injury): Plan: Creatinine noted to be high at 2.10 at presentation not significant difference compared with creatinine of 2.53 on 01/31/2022 Has been getting intravenous Lasix and creatinine is expected to worsen We will monitor kidney function Kidney function is slightly worse as expected with a creatinine of 2.53 as of 12/07/2022 (7) Elevated LFTs: Plan: Likely secondary to congestion Reverted to normal as of this morning (8) CKD (chronic kidney disease), stage IV: (9) At risk for bleeding associated with 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s: (10) Iron deficiency anemia: Plan Code status: no code Patient is a DNR DNI Hypothyroidism: continue synthroid at this time Dvt prophylaxis: on heparin drip Has LA thrombus and will need to continue anticoagulation preferably with Coumadin Coumadin has been started If the patient goes home before the INR is therapeutic will need to continue with subcu Lovenox till INR is therapeutic Admission and Anticipated Discharge Date Admission Date: December 05, 2022 Subjective 12/06/2022 The patient was seen and examined in telemetry unit He was admitted with fluid overload secondary to biventricular heart failure with cardiomyopathy with increasing shortness of breath Has been feeling much better since admission with profuse diuresis Denies any chest pain and her palpitation Shortness of breath is improved 12/07/2022 The patient was seen and examined in telemetry unit He has been feeling a lot better and wants to go home 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 and he was advised to stay for a day or 2 more Denies any significant symptoms We will restart Coumadin Review of Systems Review of Systems: All systems reviewed and are unremarkable except as noted below Physical Exam Physical Exam: Lying in bed comfortably Constitutional: well developed, well nourished, + ill appearing and + obese Eyes: PERRL, conjunctivae normal, anicteric sclerae ENMT: external ear and nose normal, oropharynx normal Neck: trachea midline, no thyromegaly Respiratory: no respiratory distress Auscultation: + diminished lung sounds and + crackles (Crackles bibasally) Cardiovascular: Rate/Rhythm: regular rate and regular rhythm; not tachycardic Heart Sounds: normal S1, normal S2 and + murmur Extremities: + edema (1+ edema bilaterally) Gastrointestinal (Abdomen): Inspection/Auscultation: normal bowel sounds; abdomen not distended Percussion/Palpation: abdomen soft; abdomen nontender Neurologic: normal touch/pain/proprioception; + does not move all extremities and no focal motor deficits Psychiatric: A+Ox3, euthymic affect Lymphatic: no cervical or axillary lymphadenopathy Results & Data Results & Data Vital Signs (Past 12 Hours) Vital Signs Temp Pulse Pulse Resp BP BP Pulse Ox 12/07/22 11:26 36.8 C 73 18 126/80 92 12/07/22 07:45 36.8 C 69 18 143/85 H 91 12/07/22 07:28 70 12/07/22 04:06 36.8 C 71 16 106/66 92 O2 Del Method 12/07/22 11:26 Room Air 12/07/22 07:45 Room Air 12/07/22 07:28 12/07/22 04:06 Room Air Laboratory Results Short CBC 12/07/22 Range/Units 07:06 WBC 4.54 L (4.8-10.8) K/ul Hgb 12.2 L (14.0-18.0) g/dl Hct 35.3 L (42.0-52.0) % Plt Count 146 (130-400) K/uL BMP 12/07/22 07:06 Sodium 141 Potassium 3.3 L Chloride 104 Carbon Dioxide 28 BUN 41 H Creatinine 2.53 H D Glucose 110 H Calcium 8.5 L Medications Administered Current Inpatient Medications Acetaminophen (Acetaminophen 325 Mg Tab) 650 mg PO Q4H PRN PRN Reason: Pain or Fever Stop: 01/04/23 19:11 Allopurinol (Allopurinol 100 Mg Tab) 200 mg PO DAILY [facility] Stop: 01/05/23 08:59 Last Admin: 12/07/22 08:47 Dose: 200 mg Amiodarone HCl (Amiodarone 200 Mg Tab) 200 mg PO BID [facility] Stop: 01/04/23 20:59 Last Admin: 12/07/22 08:48 Dose: 200 mg Aspirin (Aspirin 81 Mg Ectab) 81 mg PO DAILY@0800 [facility] Stop: 01/05/23 07:59 Last Admin: 12/07/22 08:47 Dose: 81 mg Furosemide (Furosemide 40 Mg Tab) 40 mg PO BID17 [facility] Stop: 01/06/23 16:59 Heparin Sodium/Dextrose (Heparin Sodium/Dextrose) 25,000 units in 500 mls @ 30 mls/hr IV .[id number] [facility]; Protocol Stop: 01/04/23 17:14 Last Admin: 12/07/22 09:39 Dose: Not Given Levothyroxine Sodium (Levothyroxine Sodium 25 Mcg Tablet) 37.5 mcg PO DAILYBB [facility] Stop: 01/05/23 06:29 Last Admin: 12/07/22 05:37 Dose: 37.5 mcg Metoprolol Succinate (Metoprolol Succ 50mg Ext Rel Tab) 50 mg PO BID [facility] Stop: 01/04/23 20:59 Last Admin: 12/07/22 08:48 Dose: 50 mg Warfarin Sodium (Warfarin Sod 7.5 Mg Tab) 7.5 mg PO DAILY@1600 [facility] Stop: 01/06/23 15:59
--- NOTE | 2022-12-07 15:36 | Communication Note ---
Date of Service: December 07, 2022
[2022-12-07] MEDS ORDERED: WARFARIN SOD 7.5 MG TAB PO SCH (16:00)
[2022-12-07] MEDS: FUROSEMIDE 40 MG TAB PO SCH (16:03)
[2022-12-07 16:12] LABS: Partial Thromboplastin Ratio 2.2
[2022-12-07 17:27] LABS: Partial Thromboplastin Time 61.1 Seconds (21.0-31.0)
--- NOTE | 2022-12-07 22:15 | Electrocardiogram Report ---
Test Reason : Blood Pressure : / mmHG Vent. Rate : 120 BPM Atrial Rate : 120 BPM P-R Int : 000 ms QRS Dur : 214 ms QT Int : 462 ms P-R-T Axes : 000 208 066 degrees QTc Int : 652 ms Ventricular-paced rhythm Abnormal ECG When compared with ECG of 30-JAN-2022 05:47, Premature ventricular complexes are no longer Present Vent. rate has increased BY 57 BPM Confirmed by Jesus Mcgraw ([id number]) on 12/07/2022 10:15:04 PM Referred By: Lauro Thompson Confirmed By:Jesus Mcgraw
--- NOTE | 2022-12-07 22:24 | Electrocardiogram Report ---
Test Reason : Blood Pressure : / mmHG Vent. Rate : 080 BPM Atrial Rate : 065 BPM P-R Int : 000 ms QRS Dur : 196 ms QT Int : 506 ms P-R-T Axes : 081 206 090 degrees QTc Int : 583 ms Ventricular-paced rhythm with frequent AV dual-paced complexes Biventricular pacemaker detected Abnormal ECG When compared with ECG of 05-DEC-2022 13:26, Vent. rate has decreased BY 40 BPM Confirmed by Jesus Mcgraw ([id number]) on 12/07/2022 10:24:37 PM Referred By: Lauro Thompson Confirmed By:Jesus Mcgraw
[2022-12-08] MEDS: LEVOTHYROXINE SODIUM 25 MCG TABLET PO SCH (05:39)
[2022-12-08] MEDS: ACETAMINOPHEN 325 MG TAB PO PRN ×2 (05:39→08:43)
[2022-12-08 08:20] LABS: BUN Creatinine Ratio 18.2 (10-20); Calcium 8.3 mg/dl (8.6-10.3); Creatinine Clr Calc Pharmacy 35.8 ml/min; Est GFR (African American) 32.1 ml/min; Est GFR (Non-African American) 27.7 ml/min; Magnesium 1.9 mg/dl (1.7-2.4); Potassium 3.4 mmol/L (3.5-5.1)
[2022-12-08 08:40] LABS: INR 1.1 (0.9-1.1); Partial Thromboplastin Ratio 2.2; Prothrombin Time 11.8 Seconds (9.0-12.0)
[2022-12-08] MEDS: ASPIRIN 81 MG ECTAB PO SCH (08:40)
[2022-12-08] MEDS: allopurinoL 100 MG TAB PO SCH (08:40)
[2022-12-08] MEDS: METOPROLOL SUCC 50MG EXT REL TAB PO SCH (08:40)
[2022-12-08] MEDS: FUROSEMIDE 40 MG TAB PO SCH (08:40)
[2022-12-08 08:41] LABS: Partial Thromboplastin Time 63.1 Seconds (21.0-31.0)
[2022-12-08] MEDS ORDERED: POTASSIUM CHLORIDE CRTAB 20 MEQ TABCR PO ONE (08:41)
[2022-12-08] MEDS: AMIODARONE 200 MG TAB PO SCH (08:42)
[2022-12-08] MEDS: HEPARIN SODIUM/DEXTROSE 25,000 UNITS/500 ML BAG IV SCH (08:44)
[2022-12-08] MEDS ORDERED: ENOXAPARIN 1 MG/KG SQ SCH (09:45)
[2022-12-08] MEDS ORDERED: ENOXAPARIN INJ 120 MG/0.8 ML SYR SQ SCH (10:00)
--- NOTE | 2022-12-08 11:49 | Cardiology Progress Note ---
Date of Service December 08, 2022 Assessment & Plan (1) Acute on chronic HFrEF (heart failure with reduced ejection fraction): (2) Atrial tachycardia: (3) Biventricular cardiac pacemaker in situ: (4) Left ventricular apical thrombus: (5) CKD (chronic kidney disease), stage IV: Plan 77-year-old male with nonischemic cardiomyopathy with previously improved LV systolic function presents now with acute on chronic systolic heart failure and reduced ejection fraction. Echocardiogram demonstrates apical LV thrombus in addition to above findings. Patient in atrial tachycardia is likely atypical atrial flutter on presentation with rapid paced ventricular response. Pacemaker defibrillator reprogrammed Patient responding to diuretics Plan: Continue anticoagulation with IV heparin with planned conversion to warfarin Continue IV diuresis following renal function closely. Lab work pending for today Continue amiodarone 200 mg/day given past history of ventricular arrhythmias with prior appropriate device discharge. Continue metoprolol succinate 50 mg twice per day 12/07/2022 Clinically improved after control of arrhythmia and diuresis. Still mild lower extremity edema congestive heart failure improved Renal function with mild decline with underlying stage IV renal insufficiency past acute renal failure in the setting of congestive heart failure 12/08/2022 Continued clinical improvement, improved lower extremity edema Issues as follows 1. Acute decompensated congestive heart failure. In part secondary to lapse in diuretic dosing. Patient transition to torsemide as outpatient but did not initiate. Presenting rhythm atrial tachycardia with rapid ventricular paced rhythm 2. Transient atrial tachycardia/atypical atrial flutter 3. Nonischemic cardiomyopathy with decline in LV systolic function question secondary to heart failure, arrhythmia 4. LV apical thrombus 5. Stage IV chronic kidney disease Plan: Continue amiodarone and metoprolol as ordered We will resume furosemide at 80 mg twice per day as it does not appear patient transition to torsemide as an outpatient. Restart potassium at 40 mg twice per day as outpatient dosing We will need transition in heparin to warfarin with indications of atrial flutter and LV apical thrombus Admission and Anticipated Discharge Date Admission Date: December 05, 2022 Subjective Patient seen and examined, chart, medications, telemetry reviewed. Clinically improved, No further arrhythmias Symptoms and signs of congestive heart failure improved patient lying flat without difficulty. Physical Exam Constitutional: no acute distress Eyes: PERRL, conjunctivae normal, anicteric sclerae ENMT: external ear and nose normal, oropharynx normal Neck: trachea midline, no thyromegaly Respiratory: normal respiratory effort, lungs clear to auscultation Cardiovascular: Rate/Rhythm: regular rhythm (Paced) Vessels: no JVD Extremities: + edema Chest (Breasts): Chest: + pacemaker (Pacer defibrillator left chest without irritation) Gastrointestinal (Abdomen): normal bowel sounds, soft, nontender, no hepatosplenomegaly Musculoskeletal: no cyanosis or clubbing, extremities motor strength 5/5 Results & Data Vital Signs (Past 12 Hours) Vital Signs Temp Pulse Pulse Pulse Resp BP Pulse Ox 12/08/22 11:44 36.6 C 71 19 134/85 94 12/08/22 08:12 36.6 C 70 20 124/72 93 12/08/22 07:33 70 12/08/22 03:16 36.7 C 68 18 123/76 93 O2 Del Method 12/08/22 11:44 Room Air 12/08/22 08:12 Room Air 12/08/22 07:33 12/08/22 03:16 Room Air Laboratory Results Laboratory Results - last 24 hr 12/07/22 12/08/22 12/08/22 15:06 07:23 07:23 PT 11.8 INR 1.1 APTT 61.1 H* 63.1 H* PTT Ratio 2.2 2.2 Sodium 140 Potassium 3.4 L Chloride 105 Carbon Dioxide 27 Anion Gap 8 BUN 40 H Creatinine 2.20 H D Est Cr Clr Drug Dosing 35.8 Est GFR ( Amer) 32.1 Est GFR (Non-Af Amer) 27.7 BUN/Creatinine Ratio 18.2 Glucose 111 H Calcium 8.3 L Magnesium 1.9
--- NOTE | 2022-12-08 12:39 | Hospitalist Progress Note ---
Date of Service December 08, 2022 Assessment & Plan (1) Acute on chronic HFrEF (heart failure with reduced ejection fraction): Plan: Acute decompensated systolic congestive heart failure H/O significant dilated cardiomyopathy --ECHO: Aortic valve sclerosis mild, without significant aortic valvular stenosis. Left ventricle is moderately dilated. Mild concentric LVH. Inferior wall is severely hypokinetic all other wall segments are moderately hypokinetic in a diffuse manner. EF 30%. Moderate size apical thrombus. Left atrium is severely dilated. Mitral valve annulus is dilated. Moderate to severe mitral regurgitation. Moderate tricuspid regurgitation. --IV Lasix transition to p.o. 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 H/O frequent ventricular ectopy with resultant past reduction in biventricular pacemaker function Paroxysmal atrial fibrillation H/O undefined rectal bleeding and symptomatic anemia requiring blood transfusions 06/2020 Endoscopy declined, anticoagulation with Coumadin held. Pacer have been checked and adjusted to control the heart rate Coumadin resumed given apical thrombus (3) Nonischemic dilated cardiomyopathy: Plan: Echo as above Continue management as above (4) Atrial tachycardia: Plan: H/o PAF and noted to have atrial tachycardia Pacemaker rate has been adjusted (5) Dyspnea: Plan: As above (6) JELENA (acute kidney injury): Plan: CKD III-IV Creatinine noted to be high at 2.10 at presentation not significant difference compared with creatinine of 2.53 on 01/31/2022 Cr: 2.2 today (7) Elevated LFTs: Plan: Likely secondary to congestion Reverted to normal (8) CKD (chronic kidney disease), stage IV: Plan: Avoid nephrotoxic agents as able (9) At risk for bleeding associated with 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s: (10) Iron deficiency anemia: Plan Hypothyroidism: Continue Levothyroxine DVT Px: Coumadin Code status: DNR DNI Disposition Home Admission and Anticipated Discharge Date Admission Date: December 05, 2022 Subjective Patient is seen and examined at bedside States having back pain which she attributes to hospital bed Otherwise feels well Eager to get discharged Denies any chest pain, dyspnea, dizziness, nausea, abdominal pain Discussed with cardiology today Review of Systems Review of Systems: All systems reviewed & are unremarkable except as noted in Subjective Physical Exam Physical Exam: Physical Exam: Vitals signs as noted above General Appearance:Moderately built and nourished, no apparent distress Head: normocephalic, Atraumatic Eyes: normal inspection, EOMI Neck: supple, Trachea midline Respiratory/Chest: Normal breath sounds, CTA, No accessory muscle use Cardiovascular: S1, S2, No murmur, +Pacemaker Abdomen/GI:Soft, Non tender, Bowel sounds present Extremities/Musculoskeletal:normal inspection, + pedal edema Neurologic/Psych:AAOX3, grossly no focal neurological deficits Skin: normal color, warm Results & Data Results & Data Vital Signs (Past 12 Hours) Vital Signs Temp Pulse Pulse Pulse Resp BP Pulse Ox 12/08/22 11:44 36.6 C 71 19 134/85 94 12/08/22 08:12 36.6 C 70 20 124/72 93 12/08/22 07:33 70 12/08/22 03:16 36.7 C 68 18 123/76 93 O2 Del Method 12/08/22 11:44 Room Air 12/08/22 08:12 Room Air 12/08/22 07:33 12/08/22 03:16 Room Air Laboratory Results [facility] 12/08/22 07:23 Sodium 140 Potassium 3.4 L Chloride 105 Carbon Dioxide 27 BUN 40 H Creatinine 2.20 H D Glucose 111 H Calcium 8.3 L
--- NOTE | 2022-12-08 13:16 | Discharge Summary ---
Date of Service December 08, 2022 Admission HPI Per Admitting Provider 77-year-old male with history of cardiomyopathy, biventricular pacemaker/ICD went to his clinic with complaints of shortness of breath which has gotten worse over the past few days.denies any chest pain Also noted that he has lower extremity edema and a weight gain of 6 to 7 pounds. Patient has not been taking his diuretics at this time Patient went to his clinic and was noted to have a fast heart rate and was refe rred to the ER. Patient was seen by cardiology and pacemaker settings were changed to DDIR. Patient has history of paroxysmal A-fib and anticoagulation was discontinued in 2020 secondary to rectal bleeding and anemia. Patient is being worked up in the ER at this time with cardiology on board. Admission Exam Per Admitting Provider HEENT:No JVD , Normocephalic , atraumatic CV: S1/S2+ , systolic murmur Resp: Air entry present bilaterally.bilateral crackles + , no wheeze . GI: Abdomen soft mildly distended . Musculoskeletal: examined for joint tenderness. Skin: no rashes Psych: Normal affect Neuro: Patient is awake alert not in distress , No focal neuro deficits noted Ext: bilateral lower extremity edema +. Principal Diagnosis Acute decompensated systolic congestive heart failure Moderate size apical thrombus Discharge Data Allergies Allergy/AdvReac Type Severity Reaction Status Date / Time CALLIE Inhibitors AdvReac Intermediate COUGH Verified 01/29/22 17:14 Sulfa (Sulfonamide AdvReac Intermediate DIARRHEA Verified 01/29/22 17:14 Antibiotics) Consultations 12/05/22 14:26 ED Decision to Admit Stat 12/05/22 15:57 Consult Cardiology Routine Procedures Performed Laboratory Results WBC 4.54 K/ul (4.8-10.8) L 12/07/22 07:06 RBC 3.76 M/uL (4.70-6.10) L 12/07/22 07:06 Hgb 12.2 g/dl (14.0-18.0) L 12/07/22 07:06 Hct 35.3 % (42.0-52.0) L 12/07/22 07:06 MCV 93.9 fL (80.0-100.0) 12/07/22 07:06 MCH 32.4 pg (25.0-34.0) 12/07/22 07:06 MCHC 34.6 g/dL (32.0-36.0) 12/07/22 07:06 RDW Std Deviation 46.1 fL (36.4-46.3) 12/07/22 07:06 RDW Coeff of Santosh 13.5 % (11.5-14.5) 12/07/22 07:06 Plt Count 146 K/uL (130-400) 12/07/22 07:06 MPV 12.6 fL (9.4-12.4) H 12/07/22 07:06 Immature Gran % (Auto) 0.4 % 12/07/22 07:06 Neut % (Auto) 62.1 % 12/07/22 07:06 Lymph % (Auto) 26.9 % 12/07/22 07:06 Irion % (Auto) 8.8 % 12/07/22 07:06 Eos % (Auto) 0.9 % 12/07/22 07:06 Baso % (Auto) 0.9 % 12/07/22 07:06 Neut # (Auto) 2.82 K/uL (1.40-6.50) 12/07/22 07:06 Lymph # (Auto) 1.22 K/uL (1.2-3.4) 12/07/22 07:06 Irion # (Auto) 0.40 K/uL (0.11-0.59) 12/07/22 07:06 Eos # (Auto) 0.04 K/uL (0-0.50) 12/07/22 07:06 Baso # (Auto) 0.04 K/uL (0-0.2) 12/07/22 07:06 Immature Gran # (Auto) 0.02 K/uL (0.01-0.20) 12/07/22 07:06 PT 11.8 Seconds (9.0-12.0) 12/08/22 07:23 INR 1.1 (0.9-1.1) 12/08/22 07: APTT 63.1 Seconds (21.0-31.0) H* 12/08/22 07:23 PTT Ratio 2.2 12/08/22 07:23 Sodium 140 mmol/L (136-145) 12/08/22 07:23 Potassium 3.4 mmol/L (3.5-5.1) L 12/08/22 07:23 Chloride 105 mmol/L (98-107) 12/08/22 07:23 Carbon Dioxide 27 mmol/L (21-32) 12/08/22 07:23 Anion Gap 8 (3-11) 12/08/22 07:23 BUN 40 mg/dl (6-23) H 12/08/22 07:23 Creatinine 2.20 mg/dl (0.6-1.4) H D 12/08/22 07:23 Est Cr Clr Drug Dosing 35.8 ml/min 12/08/22 07:23 Est GFR ( Amer) 32.1 ml/min 12/08/22 07: Est GFR (Non-Af Amer) 27.7 ml/min 12/08/22 07:23 BUN/Creatinine Ratio 18.2 (10-20) 12/08/22 07:23 Glucose 111 mg/dl (70-99(Fasting)) H 12/08/22 07:23 Calcium 8.3 mg/dl (8.6-10.3) L 12/08/22 07:23 Phosphorus 4.6 mg/dl (2.5-4.9) 12/07/22 07:06 Magnesium 1.9 mg/dl (1.7-2.4) 12/08/22 07:23 Total Bilirubin 0.3 mg/dl (0.2-1.0) 12/05/22 13:45 AST 34 U/L (13-39) 12/05/22 13:45 ALT 51 U/L (7-52) 12/05/22 13:45 Alkaline Phosphatase 80 U/L (34-104) 12/05/22 13:45 Troponin I High Sens 52.8 pg/ml (0-20) H* 12/05/22 13:45 B-Natriuretic Peptide 844 pg/ml (0-100) H 12/05/22 13:45 Total Protein 6.9 gm/dl (6.0-8.3) 12/05/22 13:45 Albumin 3.8 gm/dl (3.4-5.0) 12/05/22 13:45 Globulin 3.1 gm/dl (2.5-4.0) 12/05/22 13:45 Albumin/Globulin Ratio 1.2 (0.9-2) 12/05/22 13:45 SARS-CoV-2, RNA, NAAT NEGATIVE (NEGATIVE) 12/05/22 15:58 Impressions Chest X-Ray 12/05/22 13:51 XR chest 1V portable CLINICAL HISTORY: Shortness of breath. COMPARISON STUDY: Chest radiograph January 29, 2022. FINDINGS: A left subclavian biventricular pacer/AICD is in place. Cardiomediastinal silhouette is stable. There is no evidence for pulmonary edema. There is no pneumothorax or pleural effusion. There is no consolidation. No change in appearance of the chest. IMPRESSION: No acute cardiopulmonary findings. No change in appearance of the chest. ACT 112: Negative or not required by law. Electronically signed by: Memo Lee M.D. 12/05/2022 2:46 PM Hospital Course (1) Acute on chronic HFrEF (heart failure with reduced ejection fraction): Acute decompensated systolic congestive heart failure H/O significant dilated cardiomyopathy --ECHO: Aortic valve sclerosis mild, without significant aortic valvular stenosis. Left ventricle is moderately dilated. Mild concentric LVH. Inferior wall is severely hypokinetic all other wall segments are moderately hypokinetic in a diffuse manner. EF 30%. Moderate size apical thrombus. Left atrium is severely dilated. Mitral valve annulus is dilated. Moderate to severe mitral regurgitation. Moderate tricuspid regurgitation. --IV Lasix transition to p.o. 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 H/O frequent ventricular ectopy with resultant past reduction in biventricular pacemaker function Paroxysmal atrial fibrillation H/O undefined rectal bleeding and symptomatic anemia requiring blood transfusions 06/2020 Endoscopy declined, anticoagulation with Coumadin held. Pacer have been checked and adjusted to control the heart rate Coumadin resumed given apical thrombus (3) Nonischemic dilated cardiomyopathy: Echo as above Continue management as above (4) Atrial tachycardia: H/o PAF and noted to have atrial tachycardia Pacemaker rate has been adjusted (5) Dyspnea: As above (6) JELENA (acute kidney injury): CKD III-IV Creatinine noted to be high at 2.10 at presentation not significant difference compared with creatinine of 2.53 on 01/31/2022 Cr: 2.2 today (7) Elevated LFTs: Likely secondary to congestion Reverted to normal (8) CKD (chronic kidney disease), stage IV: Avoid nephrotoxic agents as able (9) At risk for bleeding associated with 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s: (10) Iron deficiency anemia: Plan Hypothyroidism: Continue Levothyroxine DVT Px: Coumadin Code status: DNR DNI Disposition Home Total Time Total Time Spent Total Time Spent (In Minutes): 57 minutes Discharge Plan Discharge Items Patient Disposition: Home - Self-Care Reason For Visit: HEART FAILURE Discharge Diagnosis: Acute decompensated systolic congestive heart failure Moderate size apical thrombus Activity: Per Instructions section Exercise/Sports: Wait until after follow-up appointment Non-emergency contact: Primary Care Provider and [employer] Call non-emergency contact if: you have any medication questions, your symptoms worsen, your pain is concerning for you and you have a fever Follow-up/Referrals: Ioana Son, [Primary Care Provider] - Diet: Heart Healthy Addtl Attending Provider Instructions: Follow-up with your primary care physician Dr. Ioana Son in 1 week Follow-up with your care partner Dr. Hall as advised Follow-up with Coumadin clinic for management of your Coumadin dose and monitoring your PT/INR. -- Your PT/INR is 1.1 today. You were administered 7.5 mg Coumadin today. --- Get blood test (PT/INR) at Coumadin clinic on 12/09/2022 and follow-up with Coumadin clinic for further instructions on Coumadin dosing and monitoring your PT/INR. -- Continue Lovenox SQ until your PT/INR is between 2.0-3.0. Further instructions will be given by Coumadin clinic. --Also obtain blood test (Basic Metabolic Panel) in 1 week and follow up with your physician. Seek immediate medical attention if your symptoms reoccur or worsen Please take all medications as instructed on discharge list below. Please call if you have any questions or problems. You can reach a [facility] hospitalist on duty at [facility] 24 hours a day by calling [phone] Call your Primary Care doctor if any of the following symptoms or problems start or get worse: * Shortness of breath or difficulty breathing * Wake up at night short of breath * Chest pain * Cough * Swelling of your hands, feet, or legs * More fatigued or tired with your normal activity * Palpitations - sudden fast heart beats WEIGHT * Weigh yourself every morning after using the bathroom. * Use the same scale. * Wear the same amount of clothing. * Write your weight down on a chart. * Call your Primary Care doctor if you gain more than 2-3 pounds in 1-2 days. MEDICATIONS * Use this discharge instruction sheet for medication instructions. * Take your medications at the time your doctor ordered. * Do not skip a dose of your medicines. * If you miss a dose of medicine, take it as soon as possible, but DO NOT DOUBLE A DOSE. * Read your medicine information when you get home. * Know all of the side effects of your medicine. If in doubt, ask your pha rmacist * Call your Primary Care doctor's office if you have any side effects. * Be sure all of your doctors know what medicine and herbs you take (including cold, flu, and herbal medicine). Take the following with you to your follow-up doctor appointments: * Weight Chart * Medication List * List of questions Do not drink excessive alcohol, beer or wine. Pending Studies at Discharge: No Stand-Alone Forms: [facility], Smoking Cessation Medications and DC Order Prescriptions: New enoxaparin [Lovenox] 120 mg/0.8 mL Syringe 111 mg subcut Q12H 5 Days Qty: 8 0RF warfarin 1 mg tablet 1 mg PO UD Qty: 100 1RF Rx Instructions: Follow up with Coumadin Clinic for dosing warfarin 2.5 mg tablet 2.5 mg PO UD Qty: 100 1RF Rx Instructions: Follow up with Coumadin Clinic for dosing warfarin 5 mg tablet 5 mg PO UD Qty: 100 1RF Rx Instructions: Follow up with Coumadin Clinic for dosing Continued levothyroxine 25 mcg tablet 37.5 mcg PO QAM Rx Instructions: TAKES 1 1/2 TABS. allopurinol 100 mg tablet 200 mg PO DAILY aspirin 81 mg Tablet,Delayed Release (Dr/Ec) 81 mg PO DAILY Rx Instructions: TAKE THIS MED WITH FOOD amiodarone 200 mg tablet 200 mg PO BID 60 Days Qty: 120 3RF metoprolol succinate 50 mg tablet extended release 24 hr 50 mg PO BID 60 Days Qty: 120 3RF triamcinolone acetonide 0.1 % Cream 1 applic TOPICAL BID PRN (Reason: AFFECTED AREA) Centrum Silver 0.4 mg-300 mcg- 250 mcg Tablet 1 tab PO DAILY Changed furosemide 40 mg tablet 80 mg PO BID 30 Days Qty: 120 1RF Rx Instructions: TAKES AT 0200 & 1400 potassium chloride 20 mEq Tablet,Er Particles/Crystals 40 meq PO BID Qty: 120 1RF Discharge Orders: Discharge Order (Routine); Ordered 12/08/22 Ordered By: Dwain Vazquez Admission Data Admit Date/Time: 12/05/22 15:34 Attending Provider: Dwain Vazquez Admit Provider: Jt Wisdom Primary Care Provider: Ioana Son Other Providers: Valente Hall ; Jt Wisdom
[2022-12-08] MEDS ORDERED: FUROSEMIDE 80 MG TAB PO SCH (17:00)
[2022-12-08] MEDS ORDERED: POTASSIUM CHLORIDE CRTAB 20 MEQ TABCR PO SCH (21:00)
== END 2022-12-08 15:59 | disposition home or self-care (01) | DRG 291 ==
LOC: ED 13:19 → SUATTDRO 15:34 → 2S 15:34

== ENCOUNTER 2022-12-11 06:07 | Observation (INO) ==
[2022-12-11] MEDS ORDERED: ALBUT/IPRATROP 3MG/0.5MG NEB 3 ML VIAL INH STA (06:14)
[2022-12-11] MEDS ORDERED: FUROSEMIDE 40 MG/4 ML VIAL IV ONE (06:36)
[2022-12-11 06:40] LABS: Basophils # (auto) 0.05 K/uL (0-0.2); Basophils % (auto) 0.6 %; Eosinophils # (auto) 0.06 K/uL (0-0.50); Eosinophils % (auto) 0.7 %; Hematocrit (blood only) 39.9 % (42.0-52.0); Hemoglobin 12.9 g/dl (14.0-18.0); Immature Granulocytes # (auto) 0.05 K/uL (0.01-0.20); Immature Granulocytes % (auto) 0.6 %; Lymphocytes # (auto) 2.27 K/uL (1.2-3.4); Lymphocytes % (auto) 25.6 %; Mean Corpuscular Hemoglobin 32.3 pg (25.0-34.0); Mean Corpuscular Hgb Conc 32.3 g/dL (32.0-36.0); Mean Platelet Volume 12.2 fL (9.4-12.4); Monocytes # (auto) 0.61 K/uL (0.11-0.59); Monocytes % (auto) 6.9 %; Neutrophils # (auto) 5.81 K/uL (1.40-6.50); Neutrophils % (auto) 65.6 %; Platelet Count 183 K/uL (130-400); RDW Standard Deviation 50.8 fL (36.4-46.3); Red Blood Count 3.99 M/uL (4.70-6.10); White Blood Count 8.85 K/ul (4.8-10.8)
--- NOTE | 2022-12-11 06:40 | Emergency Department Note ---
Impression & Plan SOB (shortness of breath), Left ventricular apical thrombus, CHF (congestive heart failure), CRF (chronic renal failure) ED Provider Note NAME: MANOHAR ECHEVARRIA AGE: 77 SEX: M : 1945 ARRIVES VIA: Ambulance INFORMANT: [Patient] ED PROVIDER(S): [Wilman Painting MD] CHIEF COMPLAINT: Shortness of breath HISTORY OF PRESENT ILLNESS: The patient is a 77-year-old male with a history of CHF. He was discharged from our hospital 3 days ago for CHF. During his hospitalization, he was found to have a clot in the apex of his heart. He is now on Lovenox and Coumadin. The patient did take the Lovenox injection this morning, he did not take any Lasix this morning. In the last 2 days, the patient has noticed some increasing shortness of breath that is worse with lying flat. He has noticed some pedal edema. No cough. No fever. No chest pain. The patient feels this is a fluid buildup episode once again. PMHx/PSHx: See Below SOCIAL HISTORY: See Below. PHYSICAL EXAM: GENERAL: Patient is in no acute distress. HEENT: No acute trauma, normocephalic atraumatic, mucous membranes moist, no nasal congestion. NECK: No stridor, no adenopathy, no meningismus, trachea is midline. LUNGS: There are some crackles at the right base. There is some scattered wheezing. No respiratory distress HEART: Without murmurs gallops or rubs, regular rate and rhythm. ABDOMEN: Soft, nontender, bowel sounds positive, no peritonitis. EXTREMITIES: No cyanosis, moderate bilateral pedal edema, full range of motion of all the joints without pain or difficulty, no signs for acute trauma. NEUROLOGIC: Oriented x 3, no acute motor or sensory deficits, no focal weakness. SKIN: No rash, no jaundice, no diaphoresis. DIFFERENTIAL DIAGNOSIS: CHF, bronchitis or pneumonia, PE, IA, anemia, electrolyte imbalance, among others. EMERGENCY DEPARTMENT COURSE/PROCEDURES: Prior/Outside records reviewed: Recent discharge summary. ECG per my interpretation: Indication was shortness of breath. The ECG shows an AV pacemaker. The rate is 76. There is no ST elevation, no PVCs. The QTc is 567. Continuous Cardiac Monitoring per my interpretation: An order was placed for continuous cardiac monitoring. The monitor shows a rate of 70 with an AV pacemaker. Observation Note: The patient was placed in observation status at 0630. Observation was initiated to help rule out cardiac ischemia and dysrhythmia. During the time in observation, the patient was frequently reassessed and received continuous cardiac monitoring, IV Lasix, a DuoNeb. On Final reassessmen t the patient appeared quite stable and was resting comfortably, the patient will be admitted at this time. Total observation time of around 3 hours. MEDICAL DECISION MAKING: There is no leukocytosis. The patient is anemic however, this is baseline when looking back at previous testing. There is a normal platelet count. INR is 1.7, subtherapeutic for someone taking Coumadin. There was evidence for renal insufficiency however, this appears baseline. No electrolyte abnormality in need of emergent correction. ECG showed an AV pacemaker, no obvious ischemia. Cardiac enzyme testing x2 is not suggestive of acute cardiac injury. The troponin elevation appears chronic. BNP was elevated consistent with fluid overload and CHF. No worrisome liver enzyme elevation. Urinalysis did not show infection. COVID test returned negative. Chest film shows CHF. No pneumonia or pneumothorax. The patient received IV Lasix, 80 mg. He was given a DuoNeb. The patient has diuresed. I discussed this case with Dr. Hall of cardiology. Given his underlying renal issues, given his repeat visit to the hospital just 3 days after discharge, hospitalization and inpatient diuresis was felt warranted. I spoke with the patient and case management, the on-call hospitalist was consulted. DISPOSITION: Patient presentation and findings warrant a hospital stay. Past Med/Surg History Medical History Biventricular cardiac pacemaker in situ Chronic anticoagulation CKD (chronic kidney disease) stage 3, GFR 30-59 ml/min CKD (chronic kidney disease), stage IV Dyslipidemia GI bleed Gout HFrEF (heart failure with reduced ejection fraction) HTN (hypertension) Iron deficiency anemia 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 Joyner) initially followed with active surveillance PSAD - 0.434 TREATMENT: 1. 6 months of hormonal suppression 2. Status post completion of IMRT/IGRT 09/02/2016 received 8100 cGy" On 04/18/16 15:06 Lynne Henao wrote "STAGING: Prostate, adenocarcinoma, meenu 3 + 4, PSA 17.38, cT2b, group IIB Prostate gland size - 40 cc (by [facility], Dr. Joyner) PSAD - 0.434" Secondary hyperparathyroidism of renal origin Tubular adenoma of rectum Surgical History History of implantable cardioverter-defibrillator (ICD) placement History of tonsillectomy Hx of colonoscopy Family History Father Heart disease age 73 - [place] Uncle Heart disease paternal Grandfather (Paternal) Heart disease Social History Smoking Status: Former smoker Second Hand Exposure: Yes (Brother while visiting); Do You Dip or Chew Tobacco: No; Tobacco Cessation Education Requested by Patient: No Hx Alcohol Use: Yes Alcohol type: beer Alcohol Intake Frequency: Monthly or L ess Hx Substance Use: No Preferred Language: Mauritian Communication Ability: Effective Dye Tub Tender Required: No Beliefs That Will Affect Care: None marital status: Current Living Situation: Alone Current Living Situation Comment: home alone How many Children do You have: 2 Other Information That Helps Us Care for You: No Feels Safe at Home: Yes Safety Concerns: Feels Safe At This Time Assistive Devices: Cane and Glasses Allergies Allergies Allergy/AdvReac Type Severity Reaction Status Date / Time CALLIE Inhibitors AdvReac Intermediate COUGH Verified 01/29/22 17:14 Sulfa (Sulfonamide AdvReac Intermediate DIARRHEA Verified 01/29/22 17:14 Antibiotics) Home Meds Home Medications Medication Instructions Recorded Confirmed allopurinol 100 mg tablet 200 mg PO DAILY 06/05/20 12/11/22 aspirin 81 mg tablet,delayed 81 mg PO DAILY 06/05/20 12/11/22 release [id number] acid 0.4 1 tab PO DAILY 12/24/21 12/11/22 mg-lycopene 300 mcg-lutein 250 mcg tablet (Centrum Silver) furosemide 40 mg tablet 80 mg PO BID 12/11/22 12/11/22 levothyroxine 50 mcg tablet 50 mcg PO QAM 12/11/22 12/11/22 Previous Rx's Medication Instructions Recorded amiodarone 200 mg tablet 200 mg PO BID 60 days #120 tabs 06/07/20 metoprolol succinate 50 mg 50 mg PO BID 60 days #120 tabs 06/07/20 tablet,extended release 24 hr enoxaparin 120 mg/0.8 mL 111 mg (0.74 mL) subcut Q12H 5 12/08/22 subcutaneous syringe (Lovenox) days #8 mL potassium chloride 20 mEq 40 meq PO BID #120 tabs 12/08/22 tablet,extended release(part/cryst) warfarin 5 mg tablet 5 mg PO UD #100 tabs 12/08/22 Results & Data (ED) Vital Signs Vital Signs - 24 hr 12/11/22 06:12 12/11/22 06:14 12/11/22 06:14 Temperature 36.8 C Temperature Source Oral Pulse Rate 79 70 Pulse Rate [Apical] Respiratory Rate 22 Respiratory Effort / Characteristics Non-Labored Spontaneous Non-Labored Spontaneous Respiratory Depth Normal Normal Respiratory Pattern Regular Blood Pressure 129/88 Blood Pressure [Right Arm] Blood Pressure Mean 101 Blood Pressure Mean [Right Arm] Blood Pressure Position Sitting Blood Pressure Position [Right Arm] Pulse Oximetry 94 Oxygen Delivery Method Room Air Room Air Sepsis Recent Fever Within 48 Hours No Sepsis New/Unexplained Change in Mental Status No Sepsis Action Taken by Nursing No Action Required 12/11/22 06:14 12/11/22 06:37 12/11/22 06:43 Temperature Temperature Source Pulse Rate Pulse Rate [Apical] 79 Respiratory Rate 20 Respiratory Effort / Characteristics Non-Labored Spontaneous Respiratory Depth Normal Respiratory Pattern Blood Pressure Blood Pressure [Right Arm] 129/88 149/80 H Blood Pressure Mean Blood Pressure Mean [Right Arm] 101 103 Blood Pressure Position Blood Pressure Position [Right Arm] Sitting Pulse Oximetry 94 94 Oxygen Delivery Method Room Air Room Air Sepsis Recent Fever Within 48 Hours Sepsis New/Unexplained Change in Mental Status Sepsis Action Taken by Nursing 12/11/22 07:34 Temperature Temperature Source Pulse Rate Pulse Rate [Apical] 71 Respiratory Rate 15 Respiratory Effort / Characteristics Non-Labored Spontaneous SOB on Exertion Respiratory Depth Normal Respiratory Pattern Blood Pressure Blood Pressure [Right Arm] 149/88 H Blood Pressure Mean Blood Pressure Mean [Right Arm] 108 Blood Pressure Position Blood Pressure Position [Right Arm] Pulse Oximetry 94 Oxygen Delivery Method Room Air Sepsis Recent Fever Within 48 Hours Sepsis New/Unexplained Change in Mental Status Sepsis Action Taken by Usp Medications Current Medication List: was personally reviewed by me Laboratory Data Attestation: I reviewed the patient's lab results. 12/11/22 06:12 12/11/22 06:12 Lab Results 12/11/22 12/11/22 12/11/22 Range/Units 06:12 06:12 06:12 WBC 8.85 (4.8-10.8) K/ul RBC 3.99 L (4.70-6.10) M/uL Hgb 12.9 L (14.0-18.0) g/dl Hct 39.9 L (42.0-52.0) % MCV 100.0 (80.0-100.0) fL MCH 32.3 (25.0-34.0) pg MCHC 32.3 (32.0-36.0) g/dL RDW Std Deviation 50.8 H (36.4-46.3) fL RDW Coeff of Santosh 14.0 (11.5-14.5) % Plt Count 183 (130-400) K/uL MPV 12.2 (9.4-12.4) fL Immature Gran % (Auto) 0.6 % Neut % (Auto) 65.6 % Lymph % (Auto) 25.6 % Long % (Auto) 6.9 % Eos % (Auto) 0.7 % Baso % (Auto) 0.6 % Neut # (Auto) 5.81 (1.40-6.50) K/uL Lymph # (Auto) 2.27 (1.2-3.4) K/uL Long # (Auto) 0.61 H (0.11-0.59) K/uL Eos # (Auto) 0.06 (0-0.50) K/uL Baso # (Auto) 0.05 (0-0.2) K/uL Immature Gran # (Auto) 0.05 (0.01-0.20) K/uL PT Cancelled INR Cancelled APTT Cancelled PTT Ratio Cancelled Sodium 142 (136-145) mmol/L Potassium 5.1 (3.5-5.1) mmol/L Chloride 111 H (98-107) mmol/L Carbon Dioxide 24 (21-32) mmol/L Anion Gap 7 (3-11) BUN 28 H (6-23) mg/dl Creatinine 1.82 H (0.6-1.4) mg/dl Est Cr Clr Drug Dosing 43.9 ml/min Est GFR ( Amer) 40.3 ml/min Est GFR (Non-Af Amer) 34.8 ml/min BUN/Creatinine Ratio 15.4 (10-20) Glucose 135 H (70-99(Fasting)) mg/dl Calcium 9.2 (8.6-10.3) mg/dl Magnesium 2.2 (1.7-2.4) mg/dl Total Bilirubin 0.4 (0.2-1.0) mg/dl AST 31 (13-39) U/L ALT 42 (7-52) U/L Alkaline Phosphatase 70 (34-104) U/L Troponin I High Sens 50.4 H* (0-20) pg/ml B-Natriuretic Peptide (0-100) pg/ml Total Protein 7.1 (6.0-8.3) gm/dl Albumin 4.0 (3.4-5.0) gm/dl Globulin 3.1 (2.5-4.0) gm/dl Albumin/Globulin Ratio 1.3 (0.9-2) Urine Color Urine Appearance (Clear) Urine pH (4.5-7.5) Ur Specific Minto (1.000-1.030) Urine Protein (Negative) Urine Glucose (UA) (Negative) Urine Ketones (Negative) Urine Blood (Negative) Urine Nitrite (Negative) Urine Bilirubin (Negative) Urine Urobilinogen (Negative) Ur Leukocyte Esterase (Negative) SARS-CoV-2 (PCR) (Negative) Influenza Type A (PCR) (Neg) Influenza Type B (PCR) (Neg) RSV (RT-PCR) (Neg) 12/11/22 12/11/22 12/11/22 Range/Units 06:12 06:28 07:19 WBC (4.8-10.8) K/ul RBC (4.70-6.10) M/uL Hgb (14.0-18.0) g/dl Hct (42.0-52.0) % MCV (80.0-100.0) fL MCH (25.0-34.0) pg MCHC (32.0-36.0) g/dL RDW Std Deviation (36.4-46.3) fL RDW Coeff of Santosh (11.5-14.5) % Plt Count (130-400) K/uL MPV (9.4-12.4) fL Immature Gran % (Auto) % Neut % (Auto) % Lymph % (Auto) % Long % (Auto) % Eos % (Auto) % Baso % (Auto) % Neut # (Auto) (1.40-6.50) K/uL Lymph # (Auto) (1.2-3.4) K/uL Long # (Auto) (0.11-0.59) K/uL Eos # (Auto) (0-0.50) K/uL Baso # (Auto) (0-0.2) K/uL Immature Gran # (Auto) (0.01-0.20) K/uL PT 18.0 H INR 1.7 H APTT 38.9 H PTT Ratio 1.4 Sodium (136-145) mmol/L Potassium (3.5-5.1) mmol/L Chloride (98-107) mmol/L Carbon Dioxide (21-32) mmol/L Anion Gap (3-11) BUN (6-23) mg/dl Creatinine (0.6-1.4) mg/dl Est Cr Clr Drug Dosing ml/min Est GFR ( Amer) ml/min Est GFR (Non-Af Amer) ml/min BUN/Creatinine Ratio (10-20) Glucose (70-99(Fasting)) mg/dl Calcium (8.6-10.3) mg/dl Magnesium (1.7-2.4) mg/dl Total Bilirubin (0.2-1.0) mg/dl AST (13-39) U/L ALT (7-52) U/L Alkaline Phosphatase (34-104) U/L Troponin I High Sens (0-20) pg/ml B-Natriuretic Peptide 735 H (0-100) pg/ml Total Protein (6.0-8.3) gm/dl Albumin (3.4-5.0) gm/dl Globulin (2.5-4.0) gm/dl Albumin/Globulin Ratio (0.9-2) Urine Color Urine Appearance (Clear) Urine pH (4.5-7.5) Ur Specific Minto (1.000-1.030) Urine Protein (Negative) Urine Glucose (UA) (Negative) Urine Ketones (Negative) Urine Blood (Negative) Urine Nitrite (Negative) Urine Bilirubin (Negative) Urine Urobilinogen (Negative) Ur Leukocyte Esterase (Negative) SARS-CoV-2 (PCR) NEGATIVE (Negative) Influenza Type A (PCR) Negative (Neg) Influenza Type B (PCR) Negative (Neg) RSV (RT-PCR) Negative (Neg) 12/11/22 12/11/22 Range/Units 07:33 08:28 WBC (4.8-10.8) K/ul RBC (4.70-6.10) M/uL Hgb (14.0-18.0) g/dl Hct (42.0-52.0) % MCV (80.0-100.0) fL MCH (25.0-34.0) pg MCHC (32.0-36.0) g/dL RDW Std Deviation (36.4-46.3) fL RDW Coeff of Santosh (11.5-14.5) % Plt Count (130-400) K/uL MPV (9.4-12.4) fL Immature Gran % (Auto) % Neut % (Auto) % Lymph % (Auto) % Long % (Auto) % Eos % (Auto) % Baso % (Auto) % Neut # (Auto) (1.40-6.50) K/uL Lymph # (Auto) (1.2-3.4) K/uL Long # (Auto) (0.11-0.59) K/uL Eos # (Auto) (0-0.50) K/uL Baso # (Auto) (0-0.2) K/uL Immature Gran # (Auto) (0.01-0.20) K/uL PT INR APTT PTT Ratio Sodium (136-145) mmol/L Potassium (3.5-5.1) mmol/L Chloride (98-107) mmol/L Carbon Dioxide (21-32) mmol/L Anion Gap (3-11) BUN (6-23) mg/dl Creatinine (0.6-1.4) mg/dl Est Cr Clr Drug Dosing ml/min Est GFR ( Amer) ml/min Est GFR (Non-Af Amer) ml/min BUN/Creatinine Ratio (10-20) Glucose (70-99(Fasting)) mg/dl Calcium (8.6-10.3) mg/dl Magnesium (1.7-2.4) mg/dl Total Bilirubin (0.2-1.0) mg/dl AST (13-39) U/L ALT (7-52) U/L Alkaline Phosphatase (34-104) U/L Troponin I High Sens 40.5 H (0-20) pg/ml B-Natriuretic Peptide (0-100) pg/ml Total Protein (6.0-8.3) gm/dl Albumin (3.4-5.0) gm/dl Globulin (2.5-4.0) gm/dl Albumin/Globulin Ratio (0.9-2) Urine Color Yellow Urine Appearance Clear (Clear) Urine pH 7.0 (4.5-7.5) Ur Specific Minto 1.009 (1.000-1.030) Urine Protein Negative (Negative) Urine Glucose (UA) Negative (Negative) Urine Ketones Negative (Negative) Urine Blood Negative (Negative) Urine Nitrite Negative (Negative) Urine Bilirubin Negative (Negative) Urine Urobilinogen Negative (Negative) Ur Leukocyte Esterase Negative (Negative) SARS-CoV-2 (PCR) (Negative) Influenza Type A (PCR) (Neg) Influenza Type B (PCR) (Neg) RSV (RT-PCR) (Neg) Administered Medications Enoxaparin Sodium (Enoxaparin Inj 120 Mg/0.8 Ml Syr) 111 mg SQ Q12H [facility] Stop: 01/10/23 10:59 Last Admin: 12/11/22 12:41 Dose: 111 mg Documented By: WAYNE Discontinued Medications Albuterol (Albut/Ipratrop 3mg/0.5mg Neb 3 Ml Vial) 3 ml INH NOW STA Stop: 12/11/22 06:15 Last Admin: 12/11/22 06:27 Dose: 3 ml Documented By: CC Amiodarone HCl (Amiodarone 200 Mg Tab) 200 mg PO NOW ONE Stop: 12/11/22 13:08 Last Admin: 12/11/22 13:53 Dose: 200 mg Documented By: WAYNE Furosemide (Furosemide 40 Mg/4 Ml Vial) 80 mg IV ONE ONE Stop: 12/11/22 06:37 Last Admin: 12/11/22 06:41 Dose: 80 mg Documented By: CC Metoprolol Succinate (Metoprolol Succ 50mg Ext Rel Tab) 50 mg PO NOW ONE Stop: 12/11/22 13:08 Last Admin: 12/11/22 13:52 Dose: 50 mg Documented By: KJL Imaging Data Radiologist's Impression: Chest X-Ray 12/11/22 06:14 XR chest 1V portable HISTORY: 77 years-old Male Dyspnea acute shortness of breath COMPARISON: 12/05/2022 TECHNIQUE: AP view of the chest FINDINGS: Cardiac silhouette is enlarged. Left subclavian pacer/AICD. Pulmonary vascular congestion with interstitial coarsening. No pneumothorax, large pleural effusion or lobar airspace consolidation. Bones appear grossly intact. IMPRESSION: Cardiomegaly and pulmonary vascular congestion with possible developing pulmonary edema. ACT 112: Negative or not required by law. The above report was generated using voice recognition software. It may contain grammatical, syntax or spelling errors. Electronically signed by: Filiberto Metcalf M.D. 12/11/2022 6:44 AM Discharge Plan Visit Data Chief Complaint: Shortness of Breath/Dyspnea ED Provider: Wilman Painting Discharge Problem: SOB (shortness of breath), Left ventricular apical thrombus, CHF (congestive heart failure), CRF (chronic renal failure) Patient Disposition: Admitted As Inpatient Condition: Fair Discharge Instructions Interventions: ED Discharge Assessment Last Done: 12/11/22 09:53
--- NOTE | 2022-12-11 06:46 | XRay Report ---
XR chest 1V portable HISTORY: 77 years-old Male Dyspnea acute shortness of breath COMPARISON: 12/05/2022 TECHNIQUE: AP view of the chest FINDINGS: Cardiac silhouette is enlarged. Left subclavian pacer/AICD. Pulmonary vascular congestion with inters titial coarsening. No pneumothorax, large pleural effusion or lobar airspace consolidation. Bones shilpa ear grossly intact. IMPRESSION: Cardiomegaly and pulmonary vascular congestion with possible developing pulmonary edema. ACT 112: Negative or not required by law. The above report was generated using voice recognition software. It may contain grammatical, syntax o r spelling errors. Electronically signed by: Filiberto Metcalf M.D. 12/11/2022 6:44 AM
[2022-12-11 06:59] LABS: Bilirubin,Total 0.4 mg/dl (0.2-1.0); Calcium 9.2 mg/dl (8.6-10.3); Magnesium 2.2 mg/dl (1.7-2.4); Potassium 5.1 mmol/L (3.5-5.1)
[2022-12-11 07:05] LABS: Albumin Globulin Ratio 1.3 (0.9-2); BUN Creatinine Ratio 15.4 (10-20); Creatinine Clr Calc Pharmacy 43.9 ml/min; Est GFR (African American) 40.3 ml/min; Est GFR (Non-African American) 34.8 ml/min; Globulin 3.1 gm/dl (2.5-4.0); Total Protein 7.1 gm/dl (6.0-8.3)
[2022-12-11 07:13] LABS: Troponin I High Sensitivity 50.4 pg/ml (0-20)
[2022-12-11 07:15] LABS: Influenza A virus by PCR Negative (Neg); Influenza B virus by PCR Negative (Neg); RSV by PCR Negative (Neg); SARS CoV2 RNA(COVID-19) Ceph NEGATIVE (Negative)
[2022-12-11 07:51] LABS: Appearance Urine Clear (Clear); Bilirubin Urine Negative (Negative); Blood Urine Negative (Negative); Color Urine Yellow; Glucose Urine UA Negative (Negative); Ketones Urine Negative (Negative); Leukocyte Esterase Urine Negative (Negative); Nitrite Urine Negative (Negative); Protein Urine Negative (Negative); Specific Gravity Urine 1.009 (1.000-1.030); Urobilinogen Urine Negative (Negative)
[2022-12-11 08:06] LABS: INR 1.7 (0.9-1.1); Partial Thromboplastin Ratio 1.4; Partial Thromboplastin Time 38.9 Seconds (21.0-31.0)
[2022-12-11] MEDS ORDERED: ACETAMINOPHEN 325 MG TAB PO PRN (10:44)
[2022-12-11] MEDS ORDERED: WARFARIN SOD 2.5 MG TAB PO SCH ×2 (11:00→16:00)
--- NOTE | 2022-12-11 11:46 | Cardiology Consultation ---
Date of Consultation December 11, 2022 Assessment & Plan (1) Acute on chronic HFrEF (heart failure with reduced ejection fraction): (2) CKD (chronic kidney disease), stage IV: (3) Nonischemic dilated cardiomyopathy: (4) Left ventricular apical thrombus: (5) PAF (paroxysmal atrial fibrillation): Plan Patient readmitted for acute decompensated HFrEF with symptoms of SOB, orthopnea, abdominal bloating, and edema and weight gain. Cause likely due to dietary non compliance, and possible non compliance with medications over the last few days. Patient started on IV diuretics upon admission with good outputs thus far. Received furosemide iv 80 mg in ER. Repeat Furosemide 40 mg IV this afternoon. Monitor renal function, electrolytes. Monitor potassium. Admitting potassium was 5.1. May need to reduce oral home dose. Not a candidate for spironolactone given CKD. his baseline creatinine appears to be 2.1-2.3 as outpatient. Also not on CALLIE/ARB with intolerance of lisinopril and losartan, and CKD. Currently creatinine improved at 1.8 Recent echo last week, during prior admission, demonstrated LVEF at 30%, which was interval decline compared to January 2022 echo at 50%. This was in setting of acute CHF, with atrial flutter RVR. BIV Device mode was transitioned to DDDR and dual chamber pacing was achieved with improved HR's. Amiodarone dose has been listed as 200 mg daily and BID. Per EPIC, home dose is 200 mg BID. Will continue amiodarone at 200 mg BID for now given recent atrial arrhythmias and history of non sustained Vt. However, this may need reduced in the future. Also diagnosed with left apical thrombus last week. Started on Lovenox and Coumadin. INR on admission was still subtherapeutic. He received dose of Lovenox this morning. Next dose should be this evening. Continue Coumadin with INR goal of 2-3. Long discussion today regarding diet modification with low sodium foods, fluid restrictions and daily weight. Will follow. Monitor I+O's closely daily weight with standing scale requested as well. Case discussed with Dr. Miner I spent a total of 65 minutes on the date of service in preparation, delivery, and documentation of the care provided to this patient, excluding any time spent in the performance of separately billed services. Abida Garcia PA-C Department of Cardiology, [facility] This chart was completed in part utilizing Speech Voice Recognition Software. Grammatical errors, random word insertions, pronoun errors, and incomplete sentences are an occasional consequence of this system due to software limitations, ambient noise, and hardware issues. Any formal questions or concerns about the content, text, or information contained within the body of this dictation should be directly addressed to the provider for clarification. Supervising Physician Co-Signing Physician Notes Supervising Physician Attestation: I have personally performed a history and physical examination on the patient. I agree with the physician orthopedic assistant's findings and plan as documented with the following additions. Subjective: Patient presents to the hospital with recurrent severe dyspnea. Subjectively improved at present. Exam: Cardiovascular: Regular rhythm, 1/6 systolic murmur, trace pedal, ankle edema Pulmonary: Mildly decreased breath sounds at the bases Data: Telemetry reveals AV sequential pacing in the 70s INR 1.7 Assessment and Plan: Acute on chronic heart failure with reduced ejection fraction Recent diagnosis of left ventricular mural thrombus, with subtherapeutic INR -Continue transition from Lovenox to Coumadin, goal INR 23. -IV furosemide 40 mg IV twice daily DVT prophylaxis: Patient is on full dose anticoagulation I spent a total of 20 minutes on the date of service in preparation, delivery, and documentation of the care provided to this patient, excluding any time spent in the performance of separately billed services. Lonnie Miner DO History of Present Illness Reason for Consultation: Acute on chronic HFrEF Requesting Physician: COSMO Dotson Attending Physician: Ana Mcconnell DO History of Present Illness Patient is a complex 77 year old male, known to [facility], Mr. Donna PA-C/Dr. Huang. History includes: Dilated nonischemic cardiomyopathy with severe LV dysfunction, diagnosed 10/2009 (LVEF as low as 25%) Chronic biventricular CHF- EF 55-60% per echo 01/2022 Status post biventricular pacemaker/defibrillator 09/04/2010 Generator change 10/28/2014 Status post July 09, 2022 generator change with a [employer] MRI F[employer]ION [employer]-D SureScan [id number], Serial Number [id number]. Admission in November 2022 for CHF exacerbation, LVEF 30% with apical thrombus present. Anticoagulation resumed History of frequent ventricular ectopy with resultant past reduction in biventricular pacemaker function Paroxysmal atrial fibrillation History of undefined rectal bleeding and symptomatic anemia requiring blood transfusions 06/2020 Endoscopically declined, anticoagulation with Coumadin held. -recurrent atrial flutter wiht RVR noted during admission. Device reprogrammed to DDIR mode with improved HR's. Chart history of MGUS and iron deficiency anemia CKD stage III-IV Hypertension Dyslipidemia Patient recently admitted to [facility] last week for acutely decompensated systolic heart failure possibly secondary to underlying cardiomyopathy, and exacerbated by atrial tachycardia, atypical atrial flutter with rapid ventricular pacing During admission Echocardiogram demonstrates diffuse LV dysfunction EF 25-30% with apical thrombus. He was started on anticoagulation therapy with Lovenox to Coumadin for goal INR 2-3. Initial rhythm upon that admission demonstrated likely atypical flutter with rapid ventricular response rate. Device reprogrammed to DDIR mode at 80 bpm Symptoms improved during admission with IV diuretics. Upon discharge, patients was placed back on furosemide at 80 mg twice per day as it was uncertain he ever started or took the torsemide that was trialed as an outpatient. Metoprolol and amiodarone were continued. Patient discharged on 12/08. [facility] with complaints of worsening SOB and "filling up with fluid". Cardiology consult was requested. Patient reports he was taking medications at home but is unable to verbalize diuretic name or dose. He reports he was weighing himself daily but does not recall weights. he believes he is up approx 3 lbs since discharge. He began to notice increase SOB yesterday. He did not take additional diuretics. He tries to follow low sodium diet. However last night he went out to eat and ate ham pot pie and dumplings. Overnight he experienced worsening SOB, orhtopnea, edema. he did not sleep well all night. At 5:00 AM he called EMS due to his symptoms. In ER, chest X-ray consistent with pulmonary edema. Started on IV furosemide first dose at 80 mg. EKG demonstrated AV dual pacing. Creatinine stable. Since admission, per nurse, outputs have been 1.7 L. At time of consult, patient feeling better than admission. Notes ongoing dyspnea, mild conversational dyspnea. No hypoxia. No chest pain. No palpitations. Edema present b/l. weight on admission was up about 3 Kg since discharge on 12/08 He did not take oral medications this morning. however he did give himself Lovenox injection early this morning prior to hospital. Allergies Allergy/AdvReac Type Severity Reaction Status Date / Time CALLIE Inhibitors AdvReac Intermediate COUGH Verified 01/29/22 17:14 Sulfa (Sulfonamide AdvReac Intermediate DIARRHEA Verified 01/29/22 17:14 Antibiotics) Home Medications Medication Instructions Recorded Confirmed Type allopurinol 100 mg tablet 200 mg PO DAILY 06/05/20 12/11/22 History aspirin 81 mg tablet,delayed 81 mg PO DAILY 06/05/20 12/11/22 History release amiodarone 200 mg tablet 200 mg PO BID 60 days #120 tabs 06/07/20 12/11/22 Rx metoprolol succinate 50 mg 50 mg PO BID 60 days #120 tabs 06/07/20 12/11/22 Rx tablet,extended release 24 hr [id number] acid 0.4 1 tab PO DAILY 12/24/21 12/11/22 History mg-lycopene 300 mcg-lutein 250 mcg tablet (Centrum Silver) enoxaparin 120 mg/0.8 mL 111 mg (0.74 mL) subcut Q12H 5 12/08/22 12/11/22 Rx subcutaneous syringe (Lovenox) days #8 mL potassium chloride 20 mEq 40 meq PO BID #120 tabs 12/08/22 12/11/22 Rx tablet,extended release(part/cryst) warfarin 5 mg tablet 5 mg PO UD #100 tabs 12/08/22 12/11/22 Rx furosemide 40 mg tablet 80 mg PO BID 12/11/22 12/11/22 History levothyroxine 50 mcg tablet 50 mcg PO QAM 12/11/22 12/11/22 History Patient History Medical History Biventricular cardiac pacemaker in situ Chronic anticoagulation CKD (chronic kidney disease) stage 3, GFR 30-59 ml/min CKD (chronic kidney disease), stage IV Dyslipidemia GI bleed Gout HFrEF (heart failure with reduced ejection fraction) HTN (hypertension) Iron deficiency anemia 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 Joyner) initially followed with active surveillance PSAD - 0.434 TREATMENT: 1. 6 months of hormonal suppression 2. Status post completion of IMRT/IGRT 09/02/2016 received 8100 cGy" On 04/18/16 15:06 Lynne Henao wrote "STAGING: Prostate, adenocarcinoma, meenu 3 + 4, PSA 17.38, cT2b, group IIB Prostate gland size - 40 cc (by [facility], Dr. Joyner) PSAD - 0.434" Secondary hyperparathyroidism of renal origin Tubular adenoma of rectum Surgical History History of implantable cardioverter-defibrillator (ICD) placement History of tonsillectomy Hx of colonoscopy Family History Father Heart disease age 73 - [place] Uncle Heart disease paternal Grandfather (Paternal) Heart disease Social History Smoking Status: Former smoker Second Hand Exposure: Yes (Brother while visiting); Do You Dip or Chew Tobacco: No; Tobacco Cessation Education Requested by Patient: No Hx Alcohol Use: Yes Alcohol type: beer Alcohol Intake Frequency: Monthly or Less Hx Substance Use: No Preferred Language: Azeri Communication Ability: Effective Technical Planner Required: No Beliefs That Will Affect Care: None marital status: Current Living Situation: Alone Current Living Situation Comment: home alone How many Children do You have: 2 Other Information That Helps Us Care for You: No Feels Safe at Home: Yes Safety Concerns: Feels Safe At This Time Assistive Devices: Cane and Glasses Review of Systems Review of Systems: All systems reviewed & are unremarkable except as noted in HPI & below Physical Exam Constitutional: WD/WN, vitals as above no acute distress Respiratory: no respiratory distress (Mild conversational dyspnea noted) Auscultation: + crackles (bilateral) Cardiovascular: Rate/Rhythm: regular rate and regular rhythm Heart Sounds: normal S1 and normal S2; no murmur Vessels: + JVD Extremities: + edema (2+ ankle and pretibial edema) Gastrointestinal (Abdomen): normal bowel sounds, soft, nontender, no hepatosplenomegaly Neurologic: PERRL, EOMI, accommodation nl, no face palsy, no dysarthria Results & Data Vital Signs (Past 12 Hours) Vital Signs Temp Pulse Pulse Resp BP BP Pulse Ox 12/11/22 10:17 12/11/22 10:17 36.6 C 70 22 147/88 H 97 12/11/22 09:30 71 22 136/76 93 12/11/22 07:34 71 15 149/88 H 94 12/11/22 06:43 149/80 H 12/11/22 06:37 79 20 129/88 94 12/11/22 06:14 94 12/11/22 06:14 12/11/22 06:14 36.8 C 70 22 129/88 94 12/11/22 06:12 79 O2 Del Method 12/11/22 10:17 Room Air 12/11/22 10:17 Room Air 12/11/22 09:30 Room Air 12/11/22 07:34 Room Air 12/11/22 06:43 12/11/22 06:37 Room Air 12/11/22 06:14 Room Air 12/11/22 06:14 Room Air 12/11/22 06:14 Room Air 12/11/22 06:12 Laboratory Results Cardiac Enzymes 12/11/22 12/11/22 12/11/22 Range/Units 06:12 06:12 08:28 AST 31 (13-39) U/L Troponin I High Sens 50.4 H* 40.5 H (0-20) pg/ml B-Natriuretic Peptide 735 H (0-100) pg/ml Coagulation 12/11/22 12/11/22 12/11/22 Range/Units 06:12 06:12 07:19 PT Cancelled 18.0 H APTT Cancelled 38.9 H B-Natriuretic Peptide 735 H (0-100) pg/ml CBC 12/11/22 Range/Units 06:12 WBC 8.85 (4.8-10.8) K/ul RBC 3.99 L (4.70-6.10) M/uL Hgb 12.9 L (14.0-18.0) g/dl Hct 39.9 L (42.0-52.0) % Plt Count 183 (130-400) K/uL Neut # (Auto) 5.81 (1.40-6.50) K/uL Lymph # (Auto) 2.27 (1.2-3.4) K/uL Foard # (Auto) 0.61 H (0.11-0.59) K/uL Eos # (Auto) 0.06 (0-0.50) K/uL Baso # (Auto) 0.05 (0-0.2) K/uL Comprehensive Metabolic Panel 12/11/22 Range/Units 06:12 Sodium 142 (136-145) mmol/L Potassium 5.1 (3.5-5.1) mmol/L Chloride 111 H (98-107) mmol/L Carbon Dioxide 24 (21-32) mmol/L BUN 28 H (6-23) mg/dl Creatinine 1.82 H (0.6-1.4) mg/dl Glucose 135 H (70-99(Fasting)) mg/dl Calcium 9.2 (8.6-10.3) mg/dl AST 31 (13-39) U/L ALT 42 (7-52) U/L Alkaline Phosphatase 70 (34-104) U/L Total Protein 7.1 (6.0-8.3) gm/dl Albumin 4.0 (3.4-5.0) gm/dl Intake and Output 12/10/22 12/11/22 12/11/22 22:59 06:59 14:59 Output Total 1775 / 1775 Balance -1775 / -1775 Output: Urine 1775 / 1775 Other: Weight 115.8 kg 111 kg Weight Measurement Method Chair Scale Patient Weight 12/12/22 06:59 Weight 111 kg Diagnostic Findings EKG on admission: AV dual-paced rhythm Biventricular pacemaker detected No significant change from previous Telemetry reviewed: AV dual paced rhythm. HR's in the 70's Chest X-Ray 12/11/22 06:14 XR chest 1V portable HISTORY: 77 years-old Male Dyspnea acute shortness of breath COMPARISON: 12/05/2022 TECHNIQUE: AP view of the chest FINDINGS: Cardiac silhouette is enlarged. Left subclavian pacer/AICD. Pulmonary vascular congestion with interstitial coarsening. No pneumothorax, large pleural effusion or lobar airspace consolidation. Bones appear grossly intact. IMPRESSION: Cardiomegaly and pulmonary vascular congestion with possible developing pulmonary edema. ACT 112: Negative or not required by law. The above report was generated using voice recognition software. It may contain grammatical, syntax or spelling errors. Electronically signed by: Filiberto Metcalf M.D. 12/11/2022 6:44 AM Medications Administered Current Inpatient Medications Acetaminophen (Acetaminophen 325 Mg Tab) 650 mg PO Q4H PRN PRN Reason: Pain or Fever Stop: 01/10/23 10:43 Allopurinol (Allopurinol 100 Mg Tab) 200 mg PO DAILY KIAN Stop: 01/11/23 08:59 Amiodarone HCl (Amiodarone 200 Mg Tab) 200 mg PO BID KIAN Stop: 01/10/23 20:59 Aspirin (Aspirin 81 Mg Ectab) 81 mg PO DAILY KIAN Stop: 01/11/23 08:59 Enoxaparin Sodium (Enoxaparin Inj 120 Mg/0.8 Ml Syr) 111 mg SQ Q12H KIAN Stop: 01/10/23 10:59 Last Admin: 12/11/22 12:41 Dose: 111 mg Furosemide (Furosemide 40 Mg/4 Ml Vial) 40 mg IV BID17 KIAN Stop: 01/10/23 16:59 Levothyroxine Sodium (Levothyroxine Sodium 50 Mcg Tablet) 50 mcg PO DAILYBB KIAN Stop: 01/11/23 06:29 Metoprolol Succinate (Metoprolol Succ 50mg Ext Rel Tab) 50 mg PO BID KIAN Stop: 01/10/23 20:59 Potassium Chloride (Potassium Chloride Crtab 20 Meq Tabcr) 40 meq PO BID KIAN Stop: 01/10/23 20:59 Warfarin Sodium (Warfarin Sod 5 Mg Tab) 5 mg PO Q2D@1600 KIAN Stop: 01/11/23 15:59 Warfarin Sodium (Warfarin Sod 2.5 Mg Tab) 2.5 mg PO Q2D@1600 KIAN Stop: 01/10/23 15:59
--- NOTE | 2022-12-11 12:34 | Electrocardiogram Report ---
Test Reason : Blood Pressure : / mmHG Vent. Rate : 076 BPM Atrial Rate : 076 BPM P-R Int : 000 ms QRS Dur : 198 ms QT Int : 504 ms P-R-T Axes : 000 195 079 degrees QTc Int : 567 ms AV dual-paced rhythm Biventricular pacemaker detected Abnormal ECG When compared with ECG of 05-DEC-2022 15:16, Vent. rate has decreased BY 4 BPM Confirmed by Reji Head ([id number]) on 12/11/2022 12:34:00 PM Referred By: Confirmed By:Bi Head
[2022-12-11] MEDS: ENOXAPARIN INJ 120 MG/0.8 ML SYR SQ SCH ×2 (12:41→23:23)
--- NOTE | 2022-12-11 12:47 | History & Physical Report ---
Date of Service December 11, 2022 Assessment & Plan (1) Acute on chronic HFrEF (heart failure with reduced ejection fraction): (2) Biventricular cardiac pacemaker in situ: (3) Nonischemic dilated cardiomyopathy: Plan: Admit to tele Patient presenting from home with reports of orthopnea. Patient recently admitted to [facility] 12/05 through 12/08 for acute on chronic HFrEF, EF 30%. Discharged on Lasix 80mg BID. patient was also found to have apical mural thrombus, discharged on Lovenox/Coumadin bridge. Due to atrial tachycardia, patient's pacemaker settings were adjusted as well. Patient presents today with complaints of orthopnea and CXR showing signs of congestive heart failure. Patient reports medication compliance however does have a history of noncompliance in the past. S/p Lasix 80 mg IV in the ED --patient has diuresed close to 2L thus far. Cardiology consulted, input appreciated Diuresis as per cardiology -- Lasix 40mg IV BID CALLIE/ARB, ARNi contraindicated due to underlying kidney disease Consider addition of spironolactone and/or empagliflozin Continue beta-maxwell. (4) Left ventricular apical thrombus: Plan: Discovered on echo during last admission Discharge on Lovenox/Coumadin bridge, INR currently 1.8 Continue Lovenox with Coumadin until INR therapeutic (5) PAF (paroxysmal atrial fibrillation): Plan: Rate controlled on metoprolol, rhythm controlled on amiodarone Previously was not anticoagulated due to chronic anemia, rectal bleeding, MGUS Anticoagulation started during last admission (6) CKD (chronic kidney disease), stage IV: Plan: Baseline creatinine high 1s-low 2s Creatinine 1.8 today Monitor renal functions DVT PROPHYLAXIS On Lovenox/Coumadin bridge for apical mural thrombus Patient seen in collaboration with Dr. Mcconnell. I spent a total of 75 minutes coordinating, documenting, and providing care for this patient excluding time spent in the performance of separately billed services. This included personally reviewing all current laboratories and imaging studies, medication reconciliation, outpatient chart review, and discussion with specialists. Admission and Anticipated Discharge Date Admission Date: December 11, 2022 History of Present Illness Chief Complaint: "Filling up with fluid." Primary Care Provider: Ioana Son DO 77 year old male with PMH nonischemic dilated cardiomyopathy EF 30% s/p biventricular pacemaker/defibrillator, left apical mural thrombus (November 2022) on Coumadin, paroxysmal atrial fibrillation, history of ventricular tachycardia, HTN, CKD stage IV, porstate cancer, MGUS, SONA, and other problems listed below who presents to the ED for evaluation of orthopnea and "filling up with fluid.'" Patient recently admitted to [facility] 12/05 - 12/08 for management of acute on chronic HFrEF, apical mural thrombus, and atrial tachycardia. Patient discharged on Lovenox/Coumadin bridge and Lasix 80mg BID. Patient reports doing well until yesterday when he noted increased shortness of breath with lying down. Reports weights have been stable between 1-2 lbs. Denies worsening lower extremity edema. Denies DIANA. No chest pain or palpitations. Denies lightheadedness, dizziness, diaphoresis, and syncopal events. No abdominal pain, nausea, vomiting, or diarrhea. Denies urinary symptoms. No fevers or chills. In the ED, patient is saturating well on room air and is hemodynamically stable. CXR shows cardiomegaly and pulmonary vascular congestion with possible developing pulmonary edema. Patient was given Lasix 80mg IV and has diuresed 1.7L. Allergies Allergy/AdvReac Type Severity Reaction Status Date / Time CALLIE Inhibitors AdvReac Intermediate COUGH Verified 01/29/22 17:14 Sulfa (Sulfonamide AdvReac Intermediate DIARRHEA Verified 01/29/22 17:14 Antibiotics) Home Medications Medication Instructions Recorded Confirmed Type allopurinol 100 mg tablet 200 mg PO DAILY 06/05/20 12/11/22 History aspirin 81 mg tablet,delayed 81 mg PO DAILY 06/05/20 12/11/22 History release amiodarone 200 mg tablet 200 mg PO BID 60 days #120 tabs 06/07/20 12/11/22 Rx metoprolol succinate 50 mg 50 mg PO BID 60 days #120 tabs 06/07/20 12/11/22 Rx tablet,extended release 24 hr [id number]-[id number] acid 0.4 1 tab PO DAILY 12/24/21 12/11/22 History mg-lycopene 300 mcg-lutein 250 mcg tablet (Centrum Silver) enoxaparin 120 mg/0.8 mL 111 mg (0.74 mL) subcut Q12H 5 12/08/22 12/11/22 Rx subcutaneous syringe (Lovenox) days #8 mL potassium chloride 20 mEq 40 meq PO BID #120 tabs 12/08/22 12/11/22 Rx tablet,extended release(part/cryst) warfarin 5 mg tablet 5 mg PO UD #100 tabs 12/08/22 12/11/22 Rx furosemide 40 mg tablet 80 mg PO BID 12/11/22 12/11/22 History levothyroxine 50 mcg tablet 50 mcg PO QAM 12/11/22 12/11/22 History Past Med/Surg History Medical History Biventricular cardiac pacemaker in situ Chronic anticoagulation CKD (chronic kidney disease) stage 3, GFR 30-59 ml/min CKD (chronic kidney disease), stage IV Dyslipidemia GI bleed Gout HFrEF (heart failure with reduced ejection fraction) HTN (hypertension) Iron deficiency anemia 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 Joyner) initially followed with active surveillance PSAD - 0.434 TREATMENT: 1. 6 months of hormonal suppression 2. Status post completion of IMRT/IGRT 09/02/2016 received 8100 cGy" On 04/18/16 15:06 Lynne Henao wrote "STAGING: Prostate, adenocarcinoma, meenu 3 + 4, PSA 17.38, cT2b, group IIB Prostate gland size - 40 cc (by [facility], Dr. Joyner) PSAD - 0.434" Secondary hyperparathyroidism of renal origin Tubular adenoma of rectum Surgical History History of implantable cardioverter-defibrillator (ICD) placement History of tonsillectomy Hx of colonoscopy Family History Father Heart disease age 73 - [place] Uncle Heart disease paternal Grandfather (Paternal) Heart disease Social History Smoking Status: Former smoker Second Hand Exposure: Yes (Brother while visiting); Do You Dip or Chew Tobacco: No; Tobacco Cessation Education Requested by Patient: No Hx Alcohol Use: Yes Alcohol type: beer Alcohol Intake Frequency: Monthly or Less Hx Substance Use: No Preferred Language: Macedonian Communication Ability: Effective Casing Blower Required: No Beliefs That Will Affect Care: None marital status: Current Living Situation: Alone Current Living Situation Comment: home alone How many Children do You have: 2 Other Information That Helps Us Care for You: No Feels Safe at Home: Yes Safety Concerns: Feels Safe At This Time Assistive Devices: Cane and Glasses Review of Systems Review of Systems: ROS per HPI, all other systems reviewed and negative Physical Exam Constitutional: WD/WN, vitals as above Eyes: PERRL, conjunctivae normal, anicteric sclerae ENMT: external ear and nose normal, oropharynx normal Respiratory: normal respiratory effort; no respiratory distress Auscultation: + diminished lung sounds (right lung kelly) Cardiovascular: Rate/Rhythm: regular rate, regular rhythm and + irregularly irregular Vessels: normal peripheral pulses Extremities: + edema (+2 pitting edema BLE) Gastrointestinal (Abdomen): normal bowel sounds, soft, nontender, no hepatosplenomegaly Musculoskeletal: no cyanosis or clubbing, extremities motor strength 5/5 Skin: no rashes, warm and dry Neurologic: PERRL, EOMI, accommodation nl, no face palsy, no dysarthria Psychiatric: A+Ox3, euthymic affect Results & Data Results & Data Vital Signs (Past 12 Hours) Vital Signs Temp Pulse Pulse Resp BP BP Pulse Ox 12/11/22 10:17 12/11/22 10:17 36.6 C 70 22 147/88 H 97 12/11/22 09:30 71 22 136/76 93 12/11/22 07:34 71 15 149/88 H 94 12/11/22 06:43 149/80 H 12/11/22 06:37 79 20 129/88 94 12/11/22 06:14 94 12/11/22 06:14 12/11/22 06:14 36.8 C 70 22 129/88 94 12/11/22 06:12 79 O2 Del Method 12/11/22 10:17 Room Air 12/11/22 10:17 Room Air 12/11/22 09:30 Room Air 12/11/22 07:34 Room Air 12/11/22 06:43 06/14/23 06:37 Room Air 12/11/22 06:14 Room Air 12/11/22 06:14 Room Air 12/11/22 06:14 Room Air 12/11/22 06:12 Laboratory Results Short CBC 12/11/22 Range/Units 06:12 WBC 8.85 (4.8-10.8) K/ul Hgb 12.9 L (14.0-18.0) g/dl Hct 39.9 L (42.0-52.0) % Plt Count 183 (130-400) K/uL BMP 12/11/22 06:12 Sodium 142 Potassium 5.1 Chloride 111 H Carbon Dioxide 24 BUN 28 H Creatinine 1.82 H Glucose 135 H Calcium 9.2 Liver Function 12/11/22 Range/Units 06:12 Total Bilirubin 0.4 (0.2-1.0) mg/dl AST 31 (13-39) U/L ALT 42 (7-52) U/L Alkaline Phosphatase 70 (34-104) U/L Albumin 4.0 (3.4-5.0) gm/dl Urine 12/11/22 Range/Units 07:33 Urine Color Yellow Urine Appearance Clear (Clear) Urine pH 7.0 (4.5-7.5) Ur Specific [place] 1.009 (1.000-1.030) Urine Protein Negative (Negative) Urine Glucose (UA) Negative (Negative) Diagnostic Findings Chest X-Ray 12/11/22 06:14 XR chest 1V portable HISTORY: 77 years-old Male Dyspnea acute shortness of breath COMPARISON: 12/05/2022 TECHNIQUE: AP view of the chest FINDINGS: Cardiac silhouette is enlarged. Left subclavian pacer/AICD. Pulmonary vascular congestion with interstitial coarsening. No pneumothorax, large pleural effusion or lobar airspace consolidation. Bones appear grossly intact. IMPRESSION: Cardiomegaly and pulmonary vascular congestion with possible developing pulmonary edema. ACT 112: Negative or not required by law. The above report was generated using voice recognition software. It may contain grammatical, syntax or spelling errors. Electronically signed by: Filiberto Metcalf M.D. 12/11/2022 6:44 AM Supervising Physician Co-Signing Physician Notes I have seen and examined the patient and have discussed the case with the provider above. I agree with the assessment and plan as stated. 77-year-old man with history of HFrEF recently admitted for heart failure exacerbation presents with worsening shortness of breath and exercise intolerance over the last 2 to 3 days. Mr. Avalos is very confused about his diuretics after multiple changes and cannot say for certain that he took either furosemide, torsemide or either one of them. We reviewed his paperwork on his side table and we discussed the importance of going through his bottled medicine together, matching the bottles with what is on the list. He will have his brother bring in his bottles this admission. He otherwise denies any chest pain. He is short of breath even with minimal exertion at rest. Denies any significant weight gain or lower extremity edema. Review of systems is otherwise negative. On physical exam he is well-nourished well-developed no acute distress. Lungs are clear to auscultation bilaterally. There is no evidence of JVD or peripheral edema. Cardiovascular exam reveals S1-S2 heard with no murmurs gallops or rubs. Regular rate and rhythm auscultated. Abdomen is soft nontender nondistended. Neuromuscular exam reveals no gross focal deficits. He is mentating clearly. Work-up today includes a CBC within normal limits, INR 1.7, sodium 142, potassium 5.1, chloride 111, bicarb 24, creatinine 1.82, BUN 28. Has sensitive troponin is 50.4 followed by 40.5. This is lower than his recent at bedtime troponin on 12/05 which was 53. BNP is 735, urine negative. Chest x-ray reveals pulmonary vascular congestion with possible developing pulmonary edema. EKG r eviewed with an AV dual paced rhythm with a rate of 76. In the ER he was given 80 mg IV furosemide with significant output in response. 1. Acute on chronic HFrEF secondary to medication noncompliance 2. Demand ischemia Agree with continuation of intravenous Lasix with very specific review of medications he is being requested to take. He has vocalized today he is confused with multiple recent changes in his diuretic therapy. This likely led to this hospital stay. Appreciate cardiology recommendations. Consider adding mineralocorticoid antagonist, spironolactone. Entresto is contraindicated given elevated creatinine. Jardiance cost was checked and is approximately $602,000 per month for this patient with his current insurance coverage. Therefore we will hold off on starting this medication. Appreciate other considerations of optimizing guideline directed medical therapy per cardiology. Jayesh,
[2022-12-11] MEDS ORDERED: AMIODARONE 200 MG TAB PO ONE (13:07)
[2022-12-11] MEDS ORDERED: METOPROLOL SUCC 50MG EXT REL TAB PO ONE (13:07)
[2022-12-11] MEDS ORDERED: Nursing to Pharmacy Communication SCH (17:00)
[2022-12-11] MEDS ORDERED: WARFARIN SOD 5 MG TAB PO SCH (17:15)
[2022-12-11] MEDS: FUROSEMIDE 40 MG/4 ML VIAL IV SCH (17:58)
[2022-12-11] MEDS: POTASSIUM CHLORIDE CRTAB 20 MEQ TABCR PO SCH (20:37)
[2022-12-11] MEDS: AMIODARONE 200 MG TAB PO SCH (20:37)
[2022-12-11] MEDS: METOPROLOL SUCC 50MG EXT REL TAB PO SCH (21:10)
[2022-12-12] MEDS: LEVOTHYROXINE SODIUM 50 MCG TABLET PO SCH (06:19)
[2022-12-12 06:20] LABS: BUN Creatinine Ratio 17.1 (10-20); Calcium 8.6 mg/dl (8.6-10.3); Creatinine Clr Calc Pharmacy 36.1 ml/min; Est GFR (African American) 32.6 ml/min; Est GFR (Non-African American) 28.1 ml/min; Magnesium 2.2 mg/dl (1.7-2.4); Potassium 4.5 mmol/L (3.5-5.1)
[2022-12-12 06:26] LABS: Hematocrit (blood only) 35.1 % (42.0-52.0); Mean Corpuscular Hemoglobin 32.6 pg (25.0-34.0); Mean Corpuscular Hgb Conc 34.2 g/dL (32.0-36.0); Mean Corpuscular Volume 95.4 fL (80.0-100.0); Mean Platelet Volume 12.3 fL (9.4-12.4); Platelet Count 137 K/uL (130-400); RDW Standard Deviation 49.2 fL (36.4-46.3); Red Blood Count 3.68 M/uL (4.70-6.10); White Blood Count 5.14 K/ul (4.8-10.8)
[2022-12-12 06:37] LABS: INR 1.6 (0.9-1.1); Prothrombin Time 17.4 Seconds (9.0-12.0)
[2022-12-12] MEDS: AMIODARONE 200 MG TAB PO SCH ×2 (08:19→21:06)
[2022-12-12] MEDS: ASPIRIN 81 MG ECTAB PO SCH (08:19)
[2022-12-12] MEDS: POTASSIUM CHLORIDE CRTAB 20 MEQ TABCR PO SCH ×2 (08:20→21:07)
[2022-12-12] MEDS: allopurinoL 100 MG TAB PO SCH (08:20)
[2022-12-12] MEDS: FUROSEMIDE 40 MG/4 ML VIAL IV SCH ×2 (08:20→17:46)
[2022-12-12] MEDS: METOPROLOL SUCC 50MG EXT REL TAB PO SCH ×2 (08:20→21:07)
[2022-12-12] MEDS: ENOXAPARIN INJ 120 MG/0.8 ML SYR SQ SCH ×2 (11:40→23:24)
--- NOTE | 2022-12-12 12:31 | Hospitalist Progress Note ---
Date of Service December 12, 2022 Assessment & Plan (1) Acute on chronic HFrEF (heart failure with reduced ejection fraction): (2) Biventricular cardiac pacemaker in situ: (3) Nonischemic dilated cardiomyopathy: Plan: Patient presenting from home with reports of orthopnea. Patient recently admitted to [facility] 12/05 through 12/08 for acute on chronic HFrEF, EF 30%. Discharged on Lasix 80mg BID. patient was also found to have apical mural thrombus, discharged on Lovenox/Coumadin bridge. Due to atrial tachycardia, patient's pacemaker settings were adjusted as well. Acute on chronic CHF with reduced EF Biventricular cardiac pacemaker Valvular heart disease ? Compliance with medications (unsure which medications he was taking at home) --CXR:Cardiomegaly and pulmonary vascular congestion with possible developing pulmonary edema. -- ECHO from 12/05/2022: ECHO: Aortic valve sclerosis mild, without significant aortic valvular stenosis. Left ventricle is moderately dilated. Mild concentric LVH. Inferior wall is severely hypokinetic all other wall segments are moderately hypokinetic in a diffuse manner. EF 30%. Moderate size apical thrombus. Left atrium is severely dilated. Mitral valve annulus is dilated. Moderate to severe mitral regurgitation. Moderate tricuspid regurgitation. -- Hold p.o. diuretics --Continue IV Lasix 40 mg twice daily Monitor I's and O's, daily weight, renal function Appreciate cardiology input No CALLIE/ARB due to underlying kidney disease Continue beta-maxwell. Offered home health: " I have to think about it" Needs follow-up with cardiology upon discharge Saturating well on room (4) Left ventricular apical thrombus: Plan: Echo as above Continue Lovenox/Coumadin bridge Monitor INR 1.6 today Will give 6mg Coumadin today Adjust Coumadin dose as needed. Needs follow-up with Coumadin clinic upon discharge (5) PAF (paroxysmal atrial fibrillation): Plan: Continue amiodarone, metoprolol Previously was not anticoagulated due to chronic anemia, rectal bleeding, MGUS On Lovenox, Coumadin as above for anticoagulation given apical thrombus and P.Afib Monitor for any bleeding issues (6) CKD (chronic kidney disease), stage IV: Plan: Baseline Cr high 1s-low 2s Monitor renal functions Cr 2.1 today DVT Px On Lovenox/Coumadin Admission and Anticipated Discharge Date Admission Date: December 11, 2022 Subjective Patient is seen and examined at bedside Dyspnea much improved Sitting in chair during my encounter Denies any chest pain, dizziness, nausea, abdominal pain No other complaints Saturating well on room air Review of Systems Review of Systems: All systems reviewed & are unremarkable except as noted in Subjective Physical Exam Physical Exam: Physical Exam: Vitals signs as noted above General Appearance:Moderately built and nourished, no apparent distress Head: normocephalic, Atraumatic Eyes: normal inspection, EOMI Neck: supple, Trachea midline Respiratory/Chest: Normal breath sounds, +Minimal Basal Crackles, No accessory muscle use Cardiovascular: S1, S2, No murmur, +Pacemaker Abdomen/GI:Soft, Non tender, Bowel sounds present Extremities/Musculoskeletal:normal inspection, + pedal edema Neurologic/Psych:AAOX3, grossly no focal neurological deficits Skin: normal color, warm Results & Data Results & Data Vital Signs (Past 12 Hours) Vital Signs Temp Pulse Pulse Resp BP Pulse Ox O2 Del Method 12/12/22 08:00 78 12/12/22 08:00 Room Air 12/12/22 07:54 36.8 C 69 18 143/81 H 92 Room Air 12/12/22 02:50 36.7 C 70 20 124/71 90 Room Air Laboratory Results Short CBC 12/12/22 Range/Units 05:31 WBC 5.14 (4.8-10.8) K/ul Hgb 12.0 L (14.0-18.0) g/dl Hct 35.1 L (42.0-52.0) % Plt Count 137 (130-400) K/uL BMP 12/12/22 05:31 Sodium 143 Potassium 4.5 Chloride 110 H Carbon Dioxide 26 BUN 37 H Creatinine 2.17 H D Glucose 101 H Calcium 8.6
--- NOTE | 2022-12-12 12:54 | Cardiology Progress Note ---
Date of Service December 12, 2022 Assessment & Plan (1) Acute on chronic HFrEF (heart failure with reduced ejection fraction): (2) CKD (chronic kidney disease), stage IV: (3) Nonischemic dilated cardiomyopathy: (4) Left ventricular apical thrombus: (5) PAF (paroxysmal atrial fibrillation): Plan Patient readmitted for acute decompensated HFrEF with symptoms of SOB, orthopnea, abdominal bloating, and edema and weight gain. Cause likely due to dietary non compliance, and possible non compliance with medications over the last few days. Patient started on IV diuretics upon admission with good outputs thus far Continue Furosemide 40 mg IV BID today. anticipate transitioning to oral diuretics tomorrow. Monitor renal function, electrolytes. Monitor potassium. Not a candidate for spironolactone given CKD. his baseline creatinine appears to be 2.1-2.3 as outpatient. Also not on CALLIE/ARB with intolerance of lisinopril and losartan, and CKD. Currently creatinine relatively stable, slight increase from yesterday but at outpatient baseline. Recent echo last week, during prior admission, demonstrated LVEF at 30%, which was interval decline compared to January 2022 echo at 50%. This was in setting of acute CHF, with atrial flutter RVR. BIV Device mode was transitioned to DDDR and dual chamber pacing was achieved with improved HR's. Amiodarone dose has been listed as 200 mg daily and BID. Per EPIC, home dose is 200 mg BID. Will continue amiodarone at 200 mg BID for now given recent atrial arrhythmias and history of non sustained Vt. However, this may need reduced in the future. Also diagnosed with left apical thrombus last week. Started on Lovenox and Coumadin. INR on admission was still subtherapeutic Continue lovenox. Coumadin dose increased today. Remains subtherapeutic at 1.6. Long discussion today regarding diet modification with low sodium foods, fluid restrictions and daily weight. Home diuretics discussed. It is unclear if patient was taking furosemide and/or torsemide. He feels furosmide works better. Likely to resume 80 mg BID on discharge. Will follow. Monitor I+O's closely daily weight with standing scale requested as well. Case discussed with Dr. Miner I spent a total of 30 minutes on the date of service in preparation, delivery, and documentation of the care provided to this patient, excluding any time spent in the performance of separately billed services. Abida Garcia PA-C Department of Cardiology, [facility] This chart was completed in part utilizing Speech Voice Recognition Software. Grammatical errors, random word insertions, pronoun errors, and incomplete sentences are an occasional consequence of this system due to software limitations, ambient noise, and hardware issues. Any formal questions or concerns about the content, text, or information contained within the body of this dictation should be directly addressed to the provider for clarification. Admission and Anticipated Discharge Date Admission Date: December 11, 2022 Supervising Physician Co-Signing Physician Notes Supervising Physician Attestation: I have personally performed a history and physical examination on the patient. I agree with the physician fleet assistant's findings and plan as documented with the following additions. Subjective: Respiratory status improved. Exam: Cardiovascular: Regular rhythm, no murmurs, no edema Pulmonary: Mildly decreased breath sounds at the bases Data: AV sequential pacing in the 70s noted on telemetry INR 1.6 Assessment and Plan: Acute decompensation, heart failure with reduced ejection fraction, nonischemic cardiomyopathy Sinus rhythm with AV sequential pacing, biventricular pacemaker LV mural thrombus Agree with plan to increase Coumadin to 6 mg daily.-Continue Lovenox bridge Continue furosemide 40 mg IV twice daily I spent a total of 20 minutes on the date of service in preparation, delivery, and documentation of the care provided to this patient, excluding any time spent in the performance of separately billed services. Lonnie Miner, DO Subjective Patient feeling better this morning. Slept better without orthopnea. SOB improving. Edema also improving. Tolerating diuretics. No dizziness. No chest pain. Review of Systems Review of Systems: All systems reviewed & are unremarkable except as noted in HPI & below Physical Exam Constitutional: WD/WN, vitals as above no acute distress Respiratory: no respiratory distress (Mild conversational dyspnea noted) Auscultation: no crackles and no rales Cardiovascular: Rate/Rhythm: regular rate and regular rhythm Heart Sounds: normal S1 and normal S2; no murmur Extremities: + edema (1+ ankle and pretibial edema) Gastrointestinal (Abdomen): normal bowel sounds, soft, nontender, no hepatosplenomegaly Neurologic: PERRL, EOMI, accommodation nl, no face palsy, no dysarthria Results & Data Vital Signs (Past 12 Hours) Vital Signs Temp Pulse Pulse Resp BP Pulse Ox O2 Del Method 12/12/22 12:00 36.7 C 75 18 118/73 95 Room Air 12/12/22 08:00 78 12/12/22 08:00 Room Air 12/12/22 07:54 36.8 C 69 18 143/81 H 92 Room Air 12/12/22 02:50 36.7 C 70 20 124/71 90 Room Air Laboratory Results Coagulation 12/12/22 Range/Units 05:31 PT 17.4 H (9.0-12.0) Seconds CBC 12/12/22 Range/Units 05:31 WBC 5.14 (4.8-10.8) K/ul RBC 3.68 L (4.70-6.10) M/uL Hgb 12.0 L (14.0-18.0) g/dl Hct 35.1 L (42.0-52.0) % Plt Count 137 (130-400) K/uL Comprehensive Metabolic Panel 12/12/22 Range/Units 05:31 Sodium 143 (136-145) mmol/L Potassium 4.5 (3.5-5.1) mmol/L Chloride 110 H (98-107) mmol/L Carbon Dioxide 26 (21-32) mmol/L BUN 37 H (6-23) mg/dl Creatinine 2.17 H D (0.6-1.4) mg/dl Glucose 101 H (70-99(Fasting)) mg/dl Calcium 8.6 (8.6-10.3) mg/dl Intake and Output 12/11/22 12/12/22 12/12/22 22:59 06:59 14:59 Intake Total 200 / 700 100 / 700 Output Total 450 / 3275 600 / 3275 300 / 300 Balance -250 / -2575 -500 / -2575 -300 / -300 Intake: Oral 200 / 700 100 / 700 Output: Urine 450 / 3275 600 / 3275 300 / 300 Other: Other Intake Source STRICT I & O Weight 111.4 kg Weight Measurement Method Standing Scale Diagnostic Findings AV paced in the 70-80s Medications Administered Current Inpatient Medications Acetaminophen (Acetaminophen 325 Mg Tab) 650 mg PO Q4H PRN PRN Reason: Pain or Fever Stop: 01/10/23 10:43 Allopurinol (Allopurinol 100 Mg Tab) 200 mg PO DAILY KIAN Stop: 01/11/23 08:59 Last Admin: 12/12/22 08:20 Dose: 200 mg Amiodarone HCl (Amiodarone 200 Mg Tab) 200 mg PO BID KIAN Stop: 01/10/23 20:59 Last Admin: 12/12/22 08:19 Dose: 200 mg Aspirin (Aspirin 81 Mg Ectab) 81 mg PO DAILY KIAN Stop: 01/11/23 08:59 Last Admin: 12/12/22 08:19 Dose: 81 mg Enoxaparin Sodium (Enoxaparin Inj 120 Mg/0.8 Ml Syr) 111 mg SQ Q12H KIAN Stop: 01/10/23 10:59 Last Admin: 12/12/22 11:40 Dose: 111 mg Furosemide (Furosemide 40 Mg/4 Ml Vial) 40 mg IV BID17 KIAN Stop: 01/10/23 16:59 Last Admin: 12/12/22 08:20 Dose: 40 mg Levothyroxine Sodium (Levothyroxine Sodium 50 Mcg Tablet) 50 mcg PO DAILYBB KIAN Stop: 01/11/23 06:29 Last Admin: 12/12/22 06:19 Dose: 50 mcg Metoprolol Succinate (Metoprolol Succ 50mg Ext Rel Tab) 50 mg PO BID KIAN Stop: 01/10/23 20:59 Last Admin: 12/12/22 08:20 Dose: 50 mg Potassium Chloride (Potassium Chloride Crtab 20 Meq Tabcr) 40 meq PO BID KIAN Stop: 01/10/23 20:59 Last Admin: 12/12/22 08:20 Dose: 40 meq Warfarin Sodium (Warfarin Sod 5 Mg Tab) 5 mg PO Q2D@1600 [facility] Stop: 01/10/23 17:14 Last Admin: 12/11/22 17:54 Dose: 5 mg Warfarin Sodium (Warfarin Sod 2.5 Mg Tab) 2.5 mg PO Q2D@1600 [facility] Stop: 01/11/23 15:59 Warfarin Sodium (Warfarin Sod 6 Mg Tab) 6 mg PO DAILY@1600 [facility] Stop: 01/11/23 15:59
[2022-12-12] MEDS ORDERED: WARFARIN SOD 2.5 MG TAB PO SCH (16:00)
[2022-12-12] MEDS ORDERED: WARFARIN SOD 5 MG TAB PO SCH (16:00)
[2022-12-12] MEDS: WARFARIN SOD 6 MG TAB PO SCH (17:46)
[2022-12-13] MEDS: LEVOTHYROXINE SODIUM 50 MCG TABLET PO SCH (05:28)
[2022-12-13 06:23] LABS: BUN Creatinine Ratio 19.6 (10-20); Calcium 8.6 mg/dl (8.6-10.3); Creatinine Clr Calc Pharmacy 36.5 ml/min; Est GFR (African American) 33.2 ml/min; Est GFR (Non-African American) 28.6 ml/min; Magnesium 2.2 mg/dl (1.7-2.4); Potassium 4.5 mmol/L (3.5-5.1)
[2022-12-13 06:36] LABS: Prothrombin Time 21.2 Seconds (9.0-12.0)
[2022-12-13] MEDS: METOPROLOL SUCC 50MG EXT REL TAB PO SCH ×2 (09:40→20:30)
[2022-12-13] MEDS: ASPIRIN 81 MG ECTAB PO SCH (09:40)
[2022-12-13] MEDS: allopurinoL 100 MG TAB PO SCH (09:40)
[2022-12-13] MEDS: POTASSIUM CHLORIDE CRTAB 20 MEQ TABCR PO SCH ×2 (09:40→20:31)
[2022-12-13] MEDS: AMIODARONE 200 MG TAB PO SCH ×2 (09:40→20:31)
[2022-12-13] MEDS: FUROSEMIDE 40 MG/4 ML VIAL IV SCH ×2 (09:41→17:31)
--- NOTE | 2022-12-13 11:37 | Cardiology Progress Note ---
Date of Service December 13, 2022 Assessment & Plan (1) Acute on chronic HFrEF (heart failure with reduced ejection fraction): (2) CKD (chronic kidney disease), stage IV: (3) Nonischemic dilated cardiomyopathy: (4) Left ventricular apical thrombus: (5) PAF (paroxysmal atrial fibrillation): Plan Patient readmitted for acute decompensated HFrEF with symptoms of SOB, orthopnea, abdominal bloating, and edema and weight gain. Cause likely due to dietary non compliance, and possible non compliance with medications over the last few days. Patient started on IV diuretics upon admission with improved symptoms. Monitor renal function, electrolytes. Monitor potassium. Not a candidate for spironolactone given CKD. his baseline creatinine appears to be 2.1-2.3 as outpatient. STable today Also not on CALLIE/ARB with intolerance of lisinopril and losartan, and CKD. Recent echo last week, during prior admission, demonstrated LVEF at 30%, which was interval decline compared to January 2022 echo at 50%. This was in setting of acute CHF, with atrial flutter RVR. BIV Device mode was transitioned to DDDR and dual chamber pacing was achieved with improved HR's. Amiodarone dose has been listed as 200 mg daily and BID. Per EPIC, home dose is 200 mg BID. Will continue amiodarone at 200 mg BID for now given recent atrial arrhythmias and history of non sustained Vt. However, this may need reduced in the future. Also diagnosed with left apical thrombus last week. Started on Lovenox and Coumadin. INR on admission was still subtherapeutic Coumadin dose increased to 6 mg and INR today is at 2.0 Lovenox discontinued. Will send message to [facility] clinic. will need f/u next week Long discussion today regarding diet modification with low sodium foods, fluid restrictions and daily weight. Home diuretics discussed. It is unclear if patient was taking furosemide and/or torsemide. He feels furosemide works better. Discharge on furosemide 80 mg BID. Stable for discharge from cardiac perspective. Case discussed with Dr. Miner I spent a total of 30 minutes on the date of service in preparation, delivery, and documentation of the care provided to this patient, excluding any time spent in the performance of separately billed services. Abida Garcia PA-C Department of Cardiology, [facility] This chart was completed in part utilizing Speech Voice Recognition Software. Grammatical errors, random word insertions, pronoun errors, and incomplete sentences are an occasional consequence of this system due to software limitations, ambient noise, and hardware issues. Any formal questions or concerns about the content, text, or information contained within the body of this dictation should be directly addressed to the provider for clarification. Admission and Anticipated Discharge Date Admission Date: December 11, 2022 Supervising Physician Co-Signing Physician Notes Supervising Physician Attestation: I have personally performed a history and physical examination on the patient. I agree with the physician information technology assistant's findings and plan as documented with the following additions. Subjective: Patient notes dyspnea much improved. Denies subjective complaint. Sitting in the bed side chair enjoying a book. Telemetry reveals AV sequential pacing in the 70s. Exam: Cardiovascular: Regular rhythm, no murmurs, no edema Pulmonary: Lungs clear to auscultation bilaterally no rales rhonchi or wheezing Data: INR 2 Creatinine stable at 2.14 Assessment and Plan: Acute on chronic heart failure with reduced ejection fraction Chronic kidney disease LV apical mural thrombus * INR is at goal today. We will discontinue Lovenox continue Coumadin. * Discharged on furosemide 80 mg first thing in the morning, 80 mg daily at 2 PM Lonnie Miner, DO Subjective Patient resting in bed this morning comfortably. Denies acute complaints. Anxious for discharge. Denies SOB, orthopnea, PND. Edema improved. No chest pain. No dizziness. Review of Systems Review of Systems: All systems reviewed & are unremarkable except as noted in HPI & below Physical Exam Constitutional: WD/WN, vitals as above no acute distress Respiratory: no respiratory distress (Mild conversational dyspnea noted) Auscultation: no crackles and no rales Cardiovascular: Rate/Rhythm: regular rate and regular rhythm Heart Sounds: normal S1 and normal S2; no murmur Vessels: + JVD Extremities: + edema (1+ ankle and pretibial edema) Gastrointestinal (Abdomen): normal bowel sounds, soft, nontender, no hepatos plenomegaly Neurologic: PERRL, EOMI, accommodation nl, no face palsy, no dysarthria Results & Data Vital Signs (Past 12 Hours) Vital Signs Temp Pulse Resp BP Pulse Ox O2 Del Method O2 Flow Rate 12/13/22 08:06 36.6 C 71 18 138/85 95 Room Air 12/13/22 03:50 36.7 C 72 20 136/82 94 Room Air 12/13/22 03:37 36.8 C 88 20 119/69 92 Oxymask 3 Laboratory Results Coagulation 12/13/22 Range/Units 05:15 PT 21.2 H (9.0-12.0) Seconds Comprehensive Metabolic Panel 12/13/22 Range/Units 05:15 Sodium 143 (136-145) mmol/L Potassium 4.5 (3.5-5.1) mmol/L Chloride 110 H (98-107) mmol/L Carbon Dioxide 25 (21-32) mmol/L BUN 42 H (6-23) mg/dl Creatinine 2.14 H (0.6-1.4) mg/dl Glucose 97 (70-99(Fasting)) mg/dl Calcium 8.6 (8.6-10.3) mg/dl Intake and Output 12/12/22 12/13/22 12/13/22 22:59 06:59 14:59 Intake Total 390 / 1170 0 / 1170 Output Total 350 / 0 400 / 2050 Balance 40 / -880 -400 / -880 Intake: Oral 390 / 1170 0 / 1170 Output: Urine 350 / 0 400 / 2050 Other: # Unmeasured Voids 425 0 Weight 110.4 kg Weight Measurement Method Standing Scale Diagnostic Findings Telemetry reviewed: AV paced in the 's Medications Administered Current Inpatient Medications Acetaminophen (Acetaminophen 325 Mg Tab) 650 mg PO Q4H PRN PRN Reason: Pain or Fever Stop: 01/10/23 10:43 Allopurinol (Allopurinol 100 Mg Tab) 200 mg PO DAILY [facility] Stop: 01/11/23 08:59 Last Admin: 12/13/22 09:40 Dose: 200 mg Amiodarone HCl (Amiodarone 200 Mg Tab) 200 mg PO BID [facility] Stop: 01/10/23 20:59 Last Admin: 12/13/22 09:40 Dose: 200 mg Aspirin (Aspirin 81 Mg Ectab) 81 mg PO DAILY [facility] Stop: 01/11/23 08:59 Last Admin: 12/13/22 09:40 Dose: 81 mg Furosemide (Furosemide 40 Mg/4 Ml Vial) 40 mg IV BID17 [facility] Stop: 01/10/23 16:59 Last Admin: 12/13/22 09:41 Dose: 40 mg Levothyroxine Sodium (Levothyroxine Sodium 50 Mcg Tablet) 50 mcg PO DAILYBB [facility] Stop: 01/11/23 06:29 Last Admin: 12/13/22 05:28 Dose: 50 mcg Metoprolol Succinate (Metoprolol Succ 50mg Ext Rel Tab) 50 mg PO BID [facility] Stop: 01/10/23 20:59 Last Admin: 12/13/22 09:40 Dose: 50 mg Potassium Chloride (Potassium Chloride Crtab 20 Meq Tabcr) 40 meq PO BID [facility] Stop: 01/10/23 20:59 Last Admin: 12/13/22 09:40 Dose: 40 meq Warfarin Sodium (Warfarin Sod 5 Mg Tab) 5 mg PO Q2D@1600 [facility] Stop: 01/10/23 17:14 Last Admin: 12/11/22 17:54 Dose: 5 mg Warfarin Sodium (Warfarin Sod 2.5 Mg Tab) 2.5 mg PO Q2D@1600 [facility] Stop: 01/11/23 15:59 Warfarin Sodium (Warfarin Sod 6 Mg Tab) 6 mg PO DAILY@1600 [facility] Stop: 01/11/23 15:59 Last Admin: 12/12/22 17:46 Dose: 6 mg
--- NOTE | 2022-12-13 16:30 | Hospitalist Progress Note ---
Date of Service December 13, 2022 Assessment & Plan (1) Acute on chronic HFrEF (heart failure with reduced ejection fraction): (2) Biventricular cardiac pacemaker in situ: (3) Nonischemic dilated cardiomyopathy: Plan: Patient presenting from home with reports of orthopnea. Patient recently admitted to [facility] 12/05 through 12/08 for acute on chronic HFrEF, EF 30%. Discharged on Lasix 80mg BID. Patient was also found to have apical mural thrombus, discharged on Coumadin/lovenox bridge. Due to atrial tachycardia, patient's pacemaker settings were adjusted as well. Acute on chronic CHF with reduced EF Biventricular cardiac pacemaker Valvular heart disease Pt's compliance with medications an issue (unsure which medications he was taking at home) --CXR:Cardiomegaly and pulmonary vascular congestion with possible developing pu lmonary edema. -- ECHO from 12/05/2022: ECHO: Aortic valve sclerosis mild, without significant aortic valvular stenosis. Left ventricle is moderately dilated. Mild concentric LVH. Inferior wall is severely hypokinetic all other wall segments are moderately hypokinetic in a diffuse manner. EF 30%. Moderate size apical thrombus. Left atrium is severely dilated. Mitral valve annulus is dilated. Moderate to severe mitral regurgitation. Moderate tricuspid regurgitation. -- Hold p.o. diuretics but continue IV Lasix 40 mg twice daily Monitor I's and O's, daily weight, renal function Appreciate cardiology input- cardiology states he is stable for discharge but since pt was a bounce back due to confusion about medications, he is being kept for close followup with home health after discharge and for further medication education. No CALLIE/ARB due to underlying kidney disease Continue beta-maxwell. Needs follow-up with cardiology upon discharge (4) Left ventricular apical thrombus: Plan: Echo as above Continue Lovenox/Coumadin bridge Monitor INR Adjust Coumadin dose as needed. Needs follow-up with Coumadin clinic upon discharge (5) PAF (paroxysmal atrial fibrillation): Plan: Continue amiodarone, metoprolol Previously was not anticoagulated due to chronic anemia, rectal bleeding, MGUS On Lovenox, Coumadin as above for anticoagulation given apical thrombus and P.Afib Monitor for any bleeding issues (6) CKD (chronic kidney disease), stage IV: Plan: Baseline Cr high 1s-low 2s Monitor renal functions DVT Px: On Lovenox/Coumadin Admission and Anticipated Discharge Date Admission Date: December 11, 2022 Subjective Pt seen today, AAOx3 though he takes some time to think. Wanted to go home today and was very disappointed that he was not due to home health only being available on Friday. Denies chest pain or SOB Review of Systems Review of Systems: All systems reviewed & are unremarkable except as noted in Subjective Physical Exam Physical Exam: General: Alert. No acute distress Skin: No noted rashes or bruises Psych: Appropriate mood and affect Neuro: No gross deficits HEENT: NC/AT CV: RRR, Normal s1, s2. Resp: Breath sounds clear bilaterally, no increased effort of breathing. Abdomen: Soft, nontender, nondistended. Extremities: edema in lower extremities bilaterally. Results & Data Results & Data Vital Signs (Past 12 Hours) Vital Signs Temp Pulse Resp BP Pulse Ox O2 Del Method 12/13/22 16:00 36.3 C L 70 18 128/75 95 Room Air 12/13/22 12:13 36.5 C 72 18 123/87 95 Room Air 12/13/22 08:06 36.6 C 71 18 138/85 95 Room Air
[2022-12-13] MEDS: WARFARIN SOD 6 MG TAB PO SCH (17:31)
[2022-12-14 04:59] LABS: Hematocrit (blood only) 35.5 % (42.0-52.0); Hemoglobin 11.9 g/dl (14.0-18.0); Mean Corpuscular Hemoglobin 32.3 pg (25.0-34.0); Mean Corpuscular Hgb Conc 33.5 g/dL (32.0-36.0); Mean Corpuscular Volume 96.5 fL (80.0-100.0); Platelet Count 133 K/uL (130-400); RDW Coefficient of Variation 13.6 % (11.5-14.5); RDW Standard Deviation 48.2 fL (36.4-46.3); Red Blood Count 3.68 M/uL (4.70-6.10); White Blood Count 4.42 K/ul (4.8-10.8)
[2022-12-14 05:15] LABS: BUN Creatinine Ratio 20.5 (10-20); Calcium 8.5 mg/dl (8.6-10.3); Creatinine Clr Calc Pharmacy 33.4 ml/min; Est GFR (African American) 29.8 ml/min; Est GFR (Non-African American) 25.7 ml/min; Potassium 4.5 mmol/L (3.5-5.1)
[2022-12-14 05:23] LABS: INR 2.2 (0.9-1.1)
[2022-12-14] MEDS: LEVOTHYROXINE SODIUM 50 MCG TABLET PO SCH (06:35)
[2022-12-14] MEDS: FUROSEMIDE 40 MG/4 ML VIAL IV SCH (09:32)
[2022-12-14] MEDS: METOPROLOL SUCC 50MG EXT REL TAB PO SCH (09:32)
[2022-12-14] MEDS: allopurinoL 100 MG TAB PO SCH (09:32)
[2022-12-14] MEDS: ASPIRIN 81 MG ECTAB PO SCH (09:32)
[2022-12-14] MEDS: POTASSIUM CHLORIDE CRTAB 20 MEQ TABCR PO SCH (09:32)
[2022-12-14] MEDS: AMIODARONE 200 MG TAB PO SCH (09:32)
--- NOTE | 2022-12-14 10:58 | Hospitalist Progress Note ---
Date of Service December 14, 2022 Assessment & Plan (1) Acute on chronic HFrEF (heart failure with reduced ejection fraction): (2) Biventricular cardiac pacemaker in situ: (3) Nonischemic dilated cardiomyopathy: Plan: Patient presenting from home with reports of orthopnea. Patient recently admitted to [facility] 12/05 through 12/08 for acute on chronic HFrEF, EF 30%. Discharged on Lasix 80mg BID. Patient was also found to have apical mural thrombus, discharged on Coumadin/lovenox bridge. Due to atrial tachycardia, patient's pacemaker settings were adjusted as well. Acute on chronic CHF with reduced EF Biventricular cardiac pacemaker Valvular heart disease Pt's compliance with medications an issue (unsure which medications he was taking at home) --CXR:Cardiomegaly and pulmonary vascular congestion with possible developing pu lmonary edema. -- ECHO from 12/05/2022: ECHO: Aortic valve sclerosis mild, without significant aortic valvular stenosis. Left ventricle is moderately dilated. Mild concentric LVH. Inferior wall is severely hypokinetic all other wall segments are moderately hypokinetic in a diffuse manner. EF 30%. Moderate size apical thrombus. Left atrium is severely dilated. Mitral valve annulus is dilated. Moderate to severe mitral regurgitation. Moderate tricuspid regurgitation. -- Hold p.o. diuretics but continue IV Lasix 40 mg twice daily Monitor I's and O's, daily weight, renal function Appreciate cardiology input- cardiology states he is stable for discharge but since pt was a bounce back due to confusion about medications, he is being kept for close followup with home health after discharge and for further medication education. No CALLIE/ARB due to underlying kidney disease Continue beta-maxwell. Needs follow-up with cardiology upon discharge (4) Left ventricular apical thrombus: Plan: Echo as above Continue Lovenox/Coumadin bridge Monitor INR Adjust Coumadin dose as needed. Needs follow-up with Coumadin clinic upon discharge (5) PAF (paroxysmal atrial fibrillation): Plan: Continue amiodarone, metoprolol Previously was not anticoagulated due to chronic anemia, rectal bleeding, MGUS On Lovenox, Coumadin as above for anticoagulation given apical thrombus and P.Afib Monitor for any bleeding issues (6) CKD (chronic kidney disease), stage IV: Plan: Baseline Cr high 1s-low 2s Monitor renal functions DVT Px: On Lovenox/Coumadin Admission and Anticipated Discharge Date Admission Date: December 13, 2022 Subjective Pt seen today, AAOx3 though he takes some time to think. Wanted to go home today and was very disappointed that he was not due to home health only being available on Friday. Denies chest pain or SOB Physical Exam Physical Exam: General: Alert. No acute distress Skin: No noted rashes or bruises Psych: Appropriate mood and affect Neuro: No gross deficits HEENT: NC/AT CV: RRR, Normal s1, s2. Resp: Breath sounds clear bilaterally, no increased effort of breathing. Abdomen: Soft, nontender, nondistended. Extremities: edema in lower extremities bilaterally. Results & Data Results & Data Vital Signs (Past 12 Hours) Vital Signs Temp Pulse Pulse Resp BP Pulse Ox O2 Del Method 12/14/22 07:00 70 12/14/22 08:11 36.3 C L 71 18 133/84 93 Room Air 12/14/22 03:36 36.6 C 75 20 152/95 H 95 Room Air 12/13/22 23:41 36.6 C 70 20 130/79 95 Room Air
--- NOTE | 2022-12-14 14:47 | Discharge Summary ---
Date of Service December 14, 2022 Admission HPI Per Admitting Provider 77 year old male with PMH nonischemic dilated cardiomyopathy EF 30% s/p biventricular pacemaker/defibrillator, left apical mural thrombus (November 2022) on Coumadin, paroxysmal atrial fibrillation, history of ventricular tachycardia, HTN, CKD stage IV, porstate cancer, MGUS, SONA, and other problems listed below who presents to the ED for evaluation of orthopnea and "filling up with fluid.'" Patient recently admitted to [facility] 12/05 - 12/08 for management of acute on chronic HFrEF, apical mural thrombus, and atrial tachycardia. Patient discharged on Lovenox/Coumadin bridge and Lasix 80mg BID. Patient reports doing well until yesterday when he noted increased shortness of breath with lying down. Reports weights have been stable between 1-2 lbs. Denies worsening lower extremity edema. Denies DIANA. No chest pain or palpitations. Denies lightheadedness, dizziness, diaphoresis, and syncopal events. No abdominal pain, nausea, vomiting, or diarrhea. Denies urinary symptoms. No fevers or chills. In the ED, patient is saturating well on room air and is hemodynamically stable. CXR shows cardiomegaly and pulmonary vascular congestion with possible developing pulmonary edema. Patient was given Lasix 80mg IV and has diuresed 1.7L. Admission Exam Per Admitting Provider Constitutional: WD/WN, vitals as above Eyes: PERRL, conjunctivae normal, anicteric sclerae ENMT: external ear and nose normal, oropharynx normal Respiratory: normal respiratory effort; no respiratory distress Auscultation: + diminished lung sounds (right lung kelly) Cardiovascular: Rate/Rhythm: regular rate, regular rhythm and + irregularly irregular Vessels: normal peripheral pulses Extremities: + edema (+2 pitting edema BLE) Gastrointestinal (Abdomen): normal bowel sounds, soft, nontender, no hepatosplenomegaly Musculoskeletal: no cyanosis or clubbing, extremities motor strength 5/5 Skin: no rashes, warm and dry Neurologic: PERRL, EOMI, accommodation nl, no face palsy, no dysarthria Psychiatric: A+Ox3, euthymic affect Principal Diagnosis CHF Discharge Exam General: Alert. No acute distress Skin: No noted rashes or bruises Psych: Appropriate mood and affect Neuro: No gross deficits HEENT: NC/AT CV: RRR, Normal s1, s2. Resp: Breath sounds clear bilaterally, no increased effort of breathing. Abdomen: Soft, nontender, nondistended. Extremities: edema in lower extremities bilaterally. Discharge Data Allergies Allergy/AdvReac Type Severity Reaction Status Date / Time CALLIE Inhibitors AdvReac Intermediate COUGH Verified 01/29/22 17:14 Sulfa (Sulfonamide AdvReac Intermediate DIARRHEA Verified 01/29/22 17:14 Antibiotics) Consultations 12/11/22 09:11 ED Decision to Admit Stat 12/11/22 10:44 Consult Cardiology Routine Hospital Course (1) Acute on chronic HFrEF (heart failure with reduced ejection fraction): (2) Biventricular cardiac pacemaker in situ: (3) Nonischemic dilated cardiomyopathy: (4) Left ventricular apical thrombus: (5) PAF (paroxysmal atrial fibrillation): (6) CKD (chronic kidney disease), stage IV: Plan Acute on chronic CHF with reduced EF Biventricular cardiac pacemaker Valvular heart disease Pt's compliance with medications an issue (unsure which medications he was taking at home). Consider workup for underlying dementia. --CXR:Cardiomegaly and pulmonary vascular congestion with possible developing pulmonary edema. -- ECHO from 12/05/2022:"Aortic valve sclerosis mild, without significant aortic valvular stenosis. Left ventricle is moderately dilated. Mild concentric LVH. Inferior wall is severely hypokinetic all other wall segments are moderately hypokinetic in a diffuse manner. EF 30%. Moderate size apical thrombus. Left atrium is severely dilated. Mitral valve annulus is dilated. Moderate to severe mitral regurgitation. Moderate tricuspid regurgitation." Received IV Lasix 40 mg twice daily, can continue home PO Lasix 80mg BID I's and O's, daily weight, renal function was monitored. Cardiology was consulted: No CALLIE/ARB due to underlying kidney disease, continue metoprolol succinate 50mg BID. Advising follow-up with cardiology upon discharge Left ventricular apical thrombus Echo as above Started on coumadin with Lovenox bridge. Discharged on coumadin 6mg daily only. INR day of discharge was 2.2, at goal Pt advised to keep followup as scheduled with coumadin clinic on 12/16/22 for continued monitoring. PAF (paroxysmal atrial fibrillation) Continue amiodarone, metoprolol Previously was not anticoagulated due to chronic anemia, rectal bleeding, MGUS Coumadin as above for anticoagulation given apical thrombus and Atrial fibr illation Continue to monitor for any bleeding issues CKD (chronic kidney disease), stage IV: Stable Total Time Total Time Spent Total Time Spent (In Minutes): >30 minutes Discharge Plan Discharge Items Patient Disposition: Home - Home Health Services Reason For Visit: CHF Discharge Diagnosis: CHF Condition on Discharge: Fair Activity: Per Instructions section Non-emergency contact: Primary Care Provider Call non-emergency contact if: you have any medication questions Follow-up/Referrals: Ioana Son DO [Primary Care Provider] - (Date & Time 12/19/2022 1:40 PM Provider Mira Jordan MD Department Family Medicine [facility] ) Diet: Heart Healthy and Low Sodium (2gm) Addtl Attending Provider Instructions: Mr. Grant, Please take all medications as instructed on discharge list below. You are being discharged with Home Health services to help. They will be seeing you on Saturday 12/16. Please call if you have any questions or problems. You can reach a [facility] hospitalist on duty at [facility] 24 hours a day by calling [phone]. Follow-up with your primary care physician as scheduled next week. Follow-up with your observer gravity prospecting Dr. Hall as advised. Follow-up with Coumadin clinic for management of your Coumadin dose and monitoring your PT/INR. Your Coumadin was at goal on discharge. You are scheduled to follow up on December 16, 2022. Seek immediate medical attention if your symptoms reoccur or worsen. Pending Studies at Discharge: No Stand-Alone Forms: My [facility], Smoking Cessation Medications and DC Order Prescriptions: New warfarin 6 mg Tablet 6 mg PO DAILY@1600 30 Days Qty: 30 0RF Continued allopurinol 100 mg tablet 200 mg PO DAILY aspirin 81 mg Tablet,Delayed Release (Dr/Ec) 81 mg PO DAILY Rx Instructions: TAKE THIS MED WITH FOOD amiodarone 200 mg tablet 200 mg PO BID 60 Days Qty: 120 3RF metoprolol succinate 50 mg tablet extended release 24 hr 50 mg PO BID 60 Days Qty: 120 3RF levothyroxine 50 mcg tablet 50 mcg PO QAM Rx Instructions: TAKE 1 TABLET BY MOUTH 30 MINUTES PRIOR TO BREAKFAST OR OTHER MEDS furosemide 40 mg tablet 80 mg PO BID Centrum Silver 0.4 mg-300 mcg- 250 mcg Tablet 1 tab PO DAILY potassium chloride 20 mEq Tablet,Er Particles/Crystals 40 meq PO BID Qty: 120 1RF Discontinued enoxaparin [Lovenox] 120 mg/0.8 mL Syringe 111 mg subcut Q12H 5 Days Qty: 8 0RF warfarin 5 mg tablet 5 mg PO UD Qty: 100 1RF Rx Instructions: 12/11 - 5mg, 12/12 2.5mg, repeat INR 12/13 Discharge Orders: Discharge Order- CHF (Routine); Ordered 12/14/22 Ordered By: Audrey Rojas Admission Data Admit Date/Time: 12/13/22 21:31 Attending Provider: Audrey Rojas Admit Provider: Ana Mcconnell Primary Care Provider: Ioana Son Other Providers: Ana Mcconnell ; Valente Hall ; [facility] ; Dwain Vazquez ; [place],[facility]
[2022-12-14] MEDS: WARFARIN SOD 6 MG TAB PO SCH (15:29)
== END 2022-12-14 15:35 | disposition home health service (06) | DRG 291 ==
LOC: ED 06:07 → 4W 06:07 → SUATTDRO 09:26 → 4W 09:53

== ENCOUNTER 2023-06-22 18:15 | Observation (INO) ==
--- OUTSIDE RECORDS SUMMARY | 2023-06-22 18:21 | External Medical Summary ---
Author Name Unknown Address Unknown Organization [id number] - [address] [place] [address] Laboratory Report Ordering Provider Test Date Status MARY GRACE BARRETO 06/20/2023 11:21:03 Final Observation Date Value Abnormality Reference (Units ) Status TSH 06/20/2023 11:21:03 3.10 0.27-4.20 (uIU/mL) Final Performing Location [facility] - [address] [place] [address]
--- OUTSIDE RECORDS SUMMARY | 2023-06-22 18:21 | External Medical Summary | Summary of Care ---
Author Name Unknown Organization [facility] Address [address] [facility] [address] Phone [phone] Care Team Providers Care Pneumatic Tester Name Role Phone SonIoana wall Primary Care Provider [phone] Reason for Visit * Reason Comments Outpatient Testing Encounter Details Date Type Department Care Team (Late st Contact Info) Description 06/20/2023 11:20 AM EST Laboratory Laboratory, [facility] [address] [facility] [place] [address] [facility] [address] [facility] [place] [address] Encounter for monitoring amiodarone therapy; Paroxysmal atrial fibrillation (HCC) Allergies Active Allergy Reactions Criticality Noted Date Comments Jerod Inhibitors Cough 12/12/2009 Sulfa Antibiotics 06/08/1999 Gi upset/diarrhea Tamsulosin Medium 01/28/2023 Lightheaded/dizzy, insomnia documented as of this encounter (statuses as of 06/20/2023) Medications Medication Sig Dispensed Refills Start Date End Date Status ASPIRIN 81 MG PO CHEWIndications:Other chest pain One pill by mouth once a day with food 100 Tab 5 11/29/2009 Active CENTRUM SILVER PO TABS one tablet daily 0 Active Warfarin Sodium 6 MG Oral Tablet (Coumadin) 6 MG ORALLY DAILY AT 4PM 0 12/16/2022 Active Allopurinol 100 MG Oral Tablet (Zyloprim) Take 2 Tablets by mouth in the morning. 0 01/03/2023 Active Tamsulosin HCl 0.4 MG Oral Capsule (Flomax) Take 1 Capsule by mouth in the morning. 90 Capsule 3 01/09/2023 Active Potassium Chloride Monse ER 20 MEQ Oral Tablet Extended ReleaseIndications:Co ngestive cardiomyopathy (HCC),Kidney disease, chronic, stage IV (GFR 15-29 ml/min) (HCC),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 (HCC) Take 2 Tablets by mouth in the morning and 2 Tablets before bedtime. 360 Tablet 3 04/02/2023 03/27/2024 Active Furosemide 40 MG Oral Tablet (Lasix) Take 2 Tablets by mouth in the morning and 2 Tablets before bedtime. 360 Tablet 3 04/02/2023 07/01/2023 Active Amiodarone HCl 200 MG Oral Tablet (Cordarone)Indication s:Persistent atrial fibrillation (HCC) TAKE 1 TABLET BY MOUTH TWICE A DAY 180 Tablet 3 04/02/2023 Active Bicalutamide 50 MG Oral Tablet (Casodex) Take 1 Tablet by mouth in the morning. 30 Tablet 6 05/28/2023 Active Metoprolol Succinate ER 50 MG Oral Tablet Extended Release 24 Hour (Toprol XL)Indications:HTN, goal below 140/90,Sustained VT (ventricular tachycardia) (HCC),Paroxysmal atrial fibrillation (HCC) Take 1 Tablet by mouth in the morning and 1 Tablet before bedtime. 180 Tablet 3 06/20/2023 Active Levothyroxine Sodium 50 MCG Oral Tablet (Levoxyl)Indications: Abnormal TSH Take 1 Tablet by mouth daily first thing in the morning. (30 min prior to breakfast or other meds) 90 Tablet 3 06/20/2023 Active documented as of this encounter (statuses as of 06/20/2023) Active Problems Problem Noted Date Diagnosed Date Atypical atrial flutter 01/03/2023 LV (left ventricular) mural thrombus 01/03/2023 Severe left ventricular systolic dysfunction 12/2022 Apical mural thrombus 12/09/2022 Prostate cancer 10/29/2022 Kidney disease, chronic, stage IV (GFR 15-29 ml/ min) 10/27/2020 Benign hypertension with chronic kidney disease, stage IV 09/04/2020 Overview: Per CKD protocol Hypertensive heart and kidne y disease with chronic systolic congestive heart failure and stage 4 chronic kidney disease 09/04/2020 Overview: Per CKD protocol - Per CKD protocol Congestive cardiomyopathy 07/11/2020 Paroxysmal atrial fibrillation 07/11/2020 Ventricular fibrillation 07/11/2020 Sustained VT (ventricular tachycardia) 0 Rising PSA following treatme nt for malignant neoplasm of prostate 09/07/2018 Overview: Treated with XRT 2015 -2016 with temporary androgen deprivation Showed biochemical failure August 2018 Iron deficiency anemia due to chronic blood loss 07/20/2018 Heart failure, systolic, chronic, etiology unkno wn 07/20/2018 Dyslipidemia, goal LDL below 70 07/20/2018 Secondary hyperparathyroidism of renal origin Tubular adenoma of rectum 01/18/2018 Prediabetes 08/12/2017 Overview: Per Prediabetes protocol #1 HTN, goal below 140/90 09/11/2016 MGUS (monoclonal gammopathy of unknown significa nce) 08/02/2015 Biventricular implantable ca rdioverter-defibrillator in situ 04/04/2015 Gout 08/02/2013 Atrial fibrillation 12/28/2010 Non-ischemic cardiomyopathy 12/13/2009 documented as of this encounter (statuses as of 06/20/2023) Resolved Problems Problem Noted Date Diagnosed Date Resolved Date Stage 3b chronic kidney disease 10/29/2022 11/06/2022 Major depressive disorder, s monika episode, severe without psychotic features 10/31/20212021 Thrombocytopenia 07/11/2020 10/31/2021 Hypertensive heart and kidne y disease with chronic systolic congestive heart failure and stage 3b chronic kidney disease 05/08/2020 09/08/19 21 Overview: Per CKD protocol Hypertensive heart and kidne y disease with chronic systolic congestive heart failure and stage 3 chronic kidney disease 11/20/2018 0 Overview: Per CKD protocol H/O prostate cancer 06/12/2017 09/08/19 19 PMR (polymyalgia rheumatica) 02/10/2017 06/12/2017 Benign hypertension with chr onic kidney disease, stage III 02/10/2017 09/07/2020 Overview: Per CKD protocol Prostate cancer 08/02/2013 06/12/2017 Paraproteinemia 02/21/2012 02/10/2017 Kidney disease, chronic, sta ge III (GFR 30-59 ml/min) 01/17/2012 10/10/2017 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 12/28/2010 01/16/2017 FDC current use of ant icoagulant therapy 12/28/2010 10/27/2020 Overview: ICD-10 update of inactive term Automatic implantable cardioverter-defibrillator in situ 09/14/201006/12 SYSTOLIC HYPERTENSION 12/13/20092016 FAMILY HX,CARDIOVASCULAR DISEASE 07/26/2008 02/10/2017 ADVANCE DIRECTIVE INFORMATION 01/13/2006 06/12/2017 Overview: Pt took booklet. Family history of other card iovascular diseases 07/26/2008 Overview: ICD-10 update of inactive term documented as of this encounter (statuses as of 06/20/2023) Immunizations Name Administration Dates Next Due COVID-19 mRNA, LNP-s, No Pre serve, 2-Dose Series (Moderna) 09/28/2020,08/31/2020 COVID-19, mRNA, LNP-s, PF, B ooster, 100mcg/0.5mg (Moderna) 05/22/2021 Pneumococcal Conjugate Vacc, 13 Valent (Prevnar) 07/07/2015 Pneumococcal Polysaccharide PPV23 (Pneumovax) Seasonal Influenza, Split, IIV3, With Preserve, Inj 07/16/2012 TD, Preservative Free 12/11/2018 TDAP (age 10 and older)(Boostrix) 06/30/2010 TDAP (age 11 and older)(Adacel) 07/26/2008 Zoster Vaccine Recombinant (Shingrix) 05/09/2021 ,02/05/2021 documented as of this encounter Social History Tobacco Use Types Packs/Day Years Used Date Smoking Tobacco: Never Smokeless Tobacco: Never Alcohol Use Standard Drinks/Week Comments Yes 0 (1 standard drink = 0.6 oz pure alcohol) on occasion- not a lot, watches closely PHQ-2 Answer Date Recorded PHQ-2 Score 18 06/13/2020 Hunger Vital Sign Answer Date Recorded Within the past 12 months, y ou worried that your food would run out before you got the money to buy more. Never true 06/13/20 20 Within the past 12 months, t he food you bought just didn't last and you didn't have money to get more. Never true 06/13/2020 Sex and Gender Information Value Date Recorded Sex Assigned at Not on file Gender Identity Not on file Sexual Orientation Not on file Job Start Date Occupation Industry Not on file Not on file Not on file documented as of this encounter Plan of Treatment Upcoming Encounters Date Type Department Care Team (Late st Contact Info) Description 07/09/2023 9:50 AM EST Anticoagulation Pharmacy, [address] [place] [address] [facility] [address] [place] [address] 08/18/2023 10:00 AM EST Cardiac Studies Cardiology, [address] [place] [address] [facility] [address] [place] [address] 09/01/2023 10:45 AM EST Imaging Radiology [facility] 1st Floor, [address] [place] [address] 09/10/2023 9:30 AM EDT Laboratory Laboratory, [address] [place] [id number] [facility] [address] [place] [address] 09/10/2023 4:00 PM EDT Office Visit Urology, [facility] [address] [facility] [place] [address] Alli Page MD [address] [place] [address] 09/22/2023 11:00 AM EDT Office Visit Hematology/Oncology [facility] [address] [facility] [place] [address] Lamar Quintero MD [address] [facility] [place] [address] 09/23/2023 4:00 PM EDT Office Visit Nephrology, [facility] [address] [facility] [place] [address] Tip Bergman MD [address] [facility] [place] [address] Pending Results Name Type Priority Associated Diagnoses Date /Time COMPREHENSIVE METABOLIC PANEL Lab Routine Encounter for monitoring amiodarone therapy 06/20/2023 11:21 AM EST TSH Lab Routine Encounter for monitoring amiodarone therapy 06/20/2023 11:21 AM EST CBC Lab Routine Paroxysmal atrial fibrillation (HCC) 06/20/2023 11:21 AM EST Health Maintenance Due Date Last Done Comments Hepatitis C Screening 1963 Hepatitis B (1 of 3 - Risk 3-dose series) 2004 Depression, Most Recent Score >= 10 (will fire each visit until score < 10) 06/14/2020 06/13/2020 COLONOSCOPY-EVERY 3 YRS AGES 18-100 01/13/2021 01/13/2018 COVID-19 Vaccine ( season) 2023 05/22/2021, 09/28/2020, 08/31/2020 Influenza Vaccine (FLU shot) (#1) 2023 07/16/2012, 06/22/2003 GFR 08/22/2023 02/19/2023, 01/28, 12/30/2022, Additional history exists TSH 09/17/2023 09/16/2022, 08/01, 06/14/2022, Additional history exists HbA1c 10/30/2023 10/29/2022, 05/0 09/2021, 11/03/2020, Additional history exists Hgb 12/24/2023 12/23/2022, 08/01, 06/14/2022, Additional history exists Albumin/Creatinine Ratio 02/20/2024 023, 05/01/2022, 07/11/2020, Additional history exists PTH 02/20/2024 02/19/2023, 03/01, 10/31/2021, Additional history exists Phosphate 02/20/2024 02/19/2023, 03/01, 10/31/2021, Additional history exists Nephrology Referral 02/25/2024 02/24/2023 DTaP,Tdap,and Td Vaccines (4 - Td or Tdap) 12/11/2028 12/11/2018, 06/30/2010, 07/26/2008, Additional history exists Pneumococcal Vaccine: 65+ Years Completed 07/07/2015, 01/12/2010 Zoster Vaccines Completed 05/09/2021, 02/05/2021 GARDASIL-HPV IMMUNIZATION SERIES Aged Out No longer eligible based on patient's age to complete this topic MENINGOCOCCAL (MENACTRA/MENVEO) Aged Out No longer eligible based on patient's age to complete this topic documented as of this encounter Medical Devices Not on filedocumented as of this encounter Visit Diagnoses Diagnosis Encounter for monitoring amiodarone therapy Encounter for therapeutic drug monitoring Paroxysmal atrial fibrillation (HCC) Atrial fibrillation documented in this encounter Advance Directives Documents on File Type Date Recorded 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 Question Answer Comments Discussion of Advance Directives occurred with: Not Discussed Does the patient have a Living Will? No Does the patient have Health Care Power of Assembly Mechanic? No Care Teams Pneumatic Tester Relationship Specialty Start Date End Date Ioana Son DO [address] [place] [address] [place] [address] PCP - General Internal Medicine 02/10/17 documented as of this encounter
--- OUTSIDE RECORDS SUMMARY | 2023-06-22 18:21 | External Medical Summary ---
Author Name Unknown Address Unknown Organization [id number] [address] [place] [id number] Laboratory Report Ordering Provider Test Date Status MARY GRACE BARRETO 06/20/2023 11:21:03 Final Observation Date Value Abnormality Reference (Units ) Status BUN 06/20/2023 11:21:03 31 Above high normal 6-20 (mg/dL) Final Creatinine 06/20/2023 11:21:03 1.9 Above high normal 0.6-1.2 (mg/dL) Final Glomerular filtration rate/1.73 sq M.predicted [Volume Rate/Area] in Serum, Plasma or Blood by Creatinine-based formula (CKD-EPI) 06/20/2023 11:21:03 35 Below low normal >=60 (mL/min) Final eGFR is calculated based on the CKD-EPI 2020 equation SODIUM 06/20/2023 11:21:03 140 135-146 (m mol/L) Final Potassium 06/20/2023 11:21:03 4.8 3.5-5.1 (m mol/L) Final Cl 06/20/2023 11:21:03 104 98-107 (mm ol/L) Final CO2 06/20/2023 11:21:03 25 22-32 (mmo l/L) Final Anion gap 06/20/2023 11:21:03 11 7-15 (mmol /L) Final Glucose 06/20/2023 11:21:03 132 Above high normal 70 -120 (mg/dL) Final Albumin 06/20/2023 11:21:03 3.8 3.8-5.0 (g /dL) Final AST (Aspartate aminotransferase) 06/20/2023 11:21:03 52 Above high normal 10-50 (U/L) Final Alk Phos 06/20/2023 11:21:03 97 35-130 (U/ L) Final Bilirubin, Total 06/20/2023 11:21:03 0.5 <=1 .2 (mg/dL) Final Calcium 06/20/2023 11:21:03 8.7 8.4-10.2 ( mg/dL) Final Protein 06/20/2023 11:21:03 6.3 6.0-8.3 (g /dL) Final ALT (Alanine aminotransferase) 06/20/2023 11:21:03 76 Above high normal 10-50 (U/L) Final Performing Location [facility] [place] [address]
--- OUTSIDE RECORDS SUMMARY | 2023-06-22 18:21 | External Medical Summary ---
Author Name Unknown Address Unknown Organization [id number] [address] [place] [id number] Laboratory Report Ordering Provider Test Date Status MARY GRACE BARRETO 06/20/2023 11:21:03 Final Observation Date Value Abnormality Reference (Units ) Status WBC, Total 06/20/2023 11:21:03 8.64 4.00-10.8 0 (K/uL) Final RBC 06/20/2023 11:21:03 4.06 4.50-5.25 (M/uL) Final Hemoglobin 06/20/2023 11:21:03 12.6 Below low normal 14 .0-16.8 (g/dL) Final HCT 06/20/2023 11:21:03 40.2 40.0-48.4 (%) Final MCV 06/20/2023 11:21:03 99.0 82.0-99.5 (fL) Final MCH 06/20/2023 11:21:03 31.0 27.0-34.0 (pg) Final MCHC 06/20/2023 11:21:03 31.3 32.0-36.0 (g/dL) Final RDW 06/20/2023 11:21:03 15.8 11.5-15.5 (%) Final Platelets 06/20/2023 11:21:03 165 140-400 (K /uL) Final MPV 06/20/2023 11:21:03 12.6 6.6-11.1 ( fL) Final Performing Location [facility] [address] [place] [address]
--- OUTSIDE RECORDS SUMMARY | 2023-06-22 18:22 | External Medical Summary | Summary of Care ---
Author Name Unknown Organization [facility] Address [address] [facility] [place] [address] Phone [phone] Care Team Providers Care Residential Supervisor Name Role Phone Ioana Son DO Primary Care Provider [phone] Reason for Visit * Reason Onset Date Comments Med Request 04/02/2023 Encounter Details Date Type Department Care Team Description 04/02/2023 Refill Family Medicine [address] [place] [phone] Ioana Son DO [address] [place] [address] [place] [address] Congestive cardiomyopathy (HCC); Kidney disease, chronic, stage IV (GFR 15-29 ml/min) ([facility]); 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 ([facility]) Allergies Active Allergy Reactions Severity Noted Date Comments Jerod Inhibitors Cough 12/12/2009 Sulfa Antibiotics 06/08/1999 Gi upset/diarrhea Tamsulosin Medium 01/28/2023 Lightheaded/dizzy, insomnia documented as of this encounter (statuses as of 04/02/2023) Medications Medication Sig Dispensed Refills Start Date End Date Status ASPIRIN 81 MG PO CHEWIndications:Ot her chest pain One pill by mouth once a day with food 100 Tab 5 0 Active CENTRUM SILVER PO TABS one tablet daily 0 Active Metoprolol Succinate ER 50 MG Oral Tablet Extended Release 24 Hour (Toprol XL) Take by mouth 1 Tablet in the morning AND 1 Tablet before bedtime. 180 Tablet 3 2 Active Levothyroxine Sodium 50 MCG Oral Tablet (Levoxyl)Indicatio ns:Abnormal TSH Take by mouth 1 Tablet in the morning. (30 min prior to breakfast or other meds). 90 Tablet 3 2 Active Warfarin Sodium 6 MG Oral Tablet (Coumadin) 6 MG ORALLY DAILY AT 4PM 0 3 Active Allopurinol 100 MG Oral Tablet (Zyloprim) Take 2 Tablets by mouth in the morning. 0 3 Active Tamsulosin HCl 0.4 MG Oral Capsule (Flomax) Take 1 Capsule by mouth in the morning. 90 Capsule 3 3 Active Potassium Chloride Monse ER 20 MEQ Oral Tablet Extended ReleaseIndications :Congestive cardiomyopathy (HCC),Kidney disease, chronic, stage IV (GFR 15-29 ml/min) (HCC),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 (HCC) Take 2 Tablets by mouth in the morning and 2 Tablets before bedtime. 360 Tablet 3 3 03/27/20 24 Active Furosemide 40 MG Oral Tablet (Lasix) Take 2 Tablets by mouth in the morning and 2 Tablets before bedtime. 360 Tablet 3 3 07/01/19 24 Active Amiodarone HCl 200 MG Oral Tablet (Cordarone)Indicat ions:Persistent atrial fibrillation (HCC) TAKE 1 TABLET BY MOUTH TWICE A DAY 180 Tablet 3 2 04/02/20 23 Discontinued Potassium Chloride Monse ER 20 MEQ Oral Tablet Extended ReleaseIndications :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 (HCC),Congestive cardiomyopathy (HCC),Kidney disease, chronic, stage IV (GFR 15-29 ml/min) (HCC) Take 2 Tablets by mouth in the morning and 2 Tablets before bedtime. 360 Tablet 3 3 04/02/20 23 Discontinued(Ref ill) Furosemide 40 MG Oral Tablet (Lasix) Take 2 Tablets by mouth 2 times a day. 0 3 04/02/20 23 Discontinued(Ref ill) documented as of this encounter (statuses as of 04/02/2023) Active Problems Problem Noted Date Atypical atrial flutter 01/03/2023 LV (left ventricular) mural thrombus 12/2022 Severe left ventricular systolic dysfunc tion 01/03/2023 Apical mural thrombus 12/09/2022 Prostate cancer 10/29/2022 Kidney disease, chronic, stage IV (GFR 1 5-29 ml/min) 10/27/2020 Benign hypertension with chronic kidney disease, stage IV 09/04/2020 Overview: Per CKD protocol Hypertensive heart and kidne y disease with chronic systolic congestive heart failure and stage 4 chronic kidney disease 09/04/2020 Overview: Per CKD protocol - Per CKD protocol Congestive cardiomyopathy 07/11/2020 Paroxysmal atrial fibrillation Ventricular fibrillation 07/11/2020 Sustained VT (ventricular tachycardia) 0 02/25/2020 Rising PSA following treatment for malig nant neoplasm of prostate 09/07/2018 Overview: Treated with XRT 2015 -2016 with temporary androgen deprivation Showed biochemical failure August 2018 Iron deficiency anemia due to chronic bl ood loss 07/20/2018 Heart failure, systolic, chronic, etiolo gy unknown 07/20/2018 Dyslipidemia, goal LDL below 70 07/20/19 19 Secondary hyperparathyroidism of renal o rigin 02/13/2018 Tubular adenoma of rectum 01/18/2018 Prediabetes 08/12/2017 Overview: Per Prediabetes protocol #1 HTN, goal below 140/90 09/11/2016 MGUS (monoclonal gammopathy of unknown s ignificance) 08/02/2015 Biventricular implantable cardioverter-d efibrillator in situ 04/04/2015 Gout 08/02/2013 Atrial fibrillation 12/28/2010 Non-ischemic cardiomyopathy 12/13/2009 documented as of this encounter (statuses as of 04/02/2023) Resolved Problems Problem Noted Date Resolved Date Stage 3b chronic kidney disease 10/29/2022 11/06/2022 Major depressive disorder, s monika episode, severe without psychotic features 10/31/2021 10/31/2021 Thrombocytopenia 07/11/2020 10/31/2021 Hypertensive heart and kidne y disease with chronic systolic congestive heart failure and stage 3b chronic kidney disease 05/08/2020 09/07/2020 Overview: Per CKD protocol Hypertensive heart and kidne y disease with chronic systolic congestive heart failure and stage 3 chronic kidney disease 11/20/2018 05/11/2020 Overview: Per CKD protocol H/O prostate cancer 06/12/2017 09/07/2018 PMR (polymyalgia rheumatica) 02/10/2017 Benign hypertension with chronic kidney disease, stage III 02/10/2017 09/07/2020 Overview: Per CKD protocol Prostate cancer 08/02/2013 06/12/2017 Paraproteinemia 02/21/2012 02/10/2017 Kidney disease, chronic, stage III (GFR 30-59 ml /min) 01/17/2012 10/10/2017 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 12/28/2010 01/16/2017 emt intermediate current use of 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 therapy 0 12/28/2010 10/27/2020 Overview: ICD-10 update of inactive term Automatic implantable cardioverter-defibrillator in situ 09/14/2010 06/12/2017 SYSTOLIC HYPERTENSION 12/13/2009 06/12/2017 FAMILY HX,CARDIOVASCULAR DISEASE 07/26/2008 02/10/2017 ADVANCE DIRECTIVE INFORMATION 01/13/2006 Overview: Pt took booklet. Family history of other cardiovascular diseases 07/26/2008 Overview: ICD-10 update of inactive term documented as of this encounter (statuses as of 04/02/2023) Immunizations Name Administration Dates Next Due COVID-19 [...] on occasion- not a lot, watches closely Food Insecurity Answer Date Recorded Within the past 12 months, y ou worried that your food would run out before you got money to buy more. Never true 06/13/2020 Within the past 12 months, t he food you bought just didn't last and you didn't have money to get more. Never true 06/13/2020 Sex Assigned at Date Recorded Not on file Job Start Date Occupation Industry Not on file Not on file Not on file documented as of this encounter Miscellaneous Notes * Telephone Encounter - Martita Manning RN - 04/02/2023 4:25 PM EDTSigned Prescriptions: Disp Refills Potassium Chloride Monse ER 20 MEQ Oral Tab*360 Ta*3 Sig: Take 2 Tablets by mouth in the morning and 2 Tablets before bedtime.Authorizing Provider: MARY LOU BRODY Furosemide 40 MG Oral Tablet (Lasix) 360 Ta*3 Sig: Take 2 Tablets by mouth in the morning and 2 Tablets before bedtime.Authorizing Provider: MARY LOU BRODY * Telephone Encounter - Martita Manning RN - 04/02/2023 11:56 AM EDT Patient called requesting RF of meds. Patient is scheduled for 06/21 for follow up. Patient is trying to get all meds switched over to [facility]. Please call patient when prescriptions have been sent. Thanks Pending Prescriptions: Disp Refills Potassium Chloride Monse ER 20 MEQ Oral Ta* 3 Sig: Take 2 Tablets by mouth in the morning and 2 Tablets before bedtime. Furosemide 40 MG Oral Tablet (Lasix) 360 Ta*0 Sig: Take 2 Tablets by mouth in the morning and 2 Tablets before bedtime. will need sent to [facility] [address] [place] [address] Message sent to provider and nurse pool. Reason for Call: No chief complaint on file. Contact: Telephone Call Contact Type: Medication Outcome: see above Face to face time spent with Patient (minutes): 0 Total Time including non face to face (minutes): 10 documented in this encounter Plan of Treatment Upcoming Encounters Date Type Specialty Care Team Description 04/30/2023 Anticoagulation Pharmacy [facility] [address] [facility] [place] [address] 05/02/2023 Office Visit Family Medicine Ioana Son[address] [place] [address] 05/28/2023 Office Visit Urology Alli Page MD [address] [address] [place] [address] 06/20/2023 Office Visit Cardiology Mary Lou Brody PA-C [address] [facility] [place] [address] 08/18/2023 Cardiac Studies Cardiology Rob Pacer [facility] [address] [facility] [place] [address] 09/10/2023 Laboratory Laboratory [facility]iel, [facility] [place] [address] 09/22/2023 Office Visit Hematology Oncology Lamar Quintero MD [facility] [place] [address] 09/23/2023 Office Visit Nephrology Tip Bergman MD [address] [facility], [place] [address] Health Maintenance Due Date Last Done Comments Hepatitis C Screening 1963 Depression, Most Recent Score >= 10 (will fire each visit until score < 10) 06/14/2020 06/13/2020 COLONOSCOPY-EVERY 3 YRS AGES 18-100 01/13/2021 01/13/2018 COVID-19 Vaccine (2022- season) 2023 05/22/2021, 09/28/2020, 08/31/2020 Influenza Vaccine [...] on patient's age to complete this topic Hepatitis B Aged Out No longer eligi ble based on patient's age to complete this topic MENINGOCOCCAL (MENACTRA/MENVEO) Aged Out No longer eligible based on patient's age to complete this topic documented as of this encounter Medical Devices Not on filedocumented as of this encounter Visit Diagnoses Diagnosis Congestive cardiomyopathy (HCC) Other primary cardiomyopathies Kidney disease, chronic, stage IV (GFR 15-29 ml/min) (HCC) Chronic kidney disease, Stage IV (severe) 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 (HCC) documented in this encounter Advance Directives Documents on File Type Date Recorded 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 No Care Teams Residential Supervisor Relationship Specialty Start Date End Date Ioana Son, [address] [place] [address] PCP - General Internal Medicine 02/10/17 documented as of this encounter
--- OUTSIDE RECORDS SUMMARY | 2023-06-22 18:22 | External Medical Summary | Summary of Care ---
Author Name Unknown Organization [facility] Address [address] [facility] [place] [address] Phone [phone] Care Team Providers Care Lens Cutter Name Role Phone Ioana Son DO Primary Care Provider [phone] Reason for Visit * Reason Onset Date Comments Med Request 04/02/2023 Encounter Details Date Type Department Care Team Description 04/02/2023 Refill Family Medicine [address] [place] [phone] Ioana Son DO [address] [place] [address] [place] [address] Congestive cardiomyopathy (HCC); Kidney disease, chronic, stage IV (GFR 15-29 ml/min) ([facility]); 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 ([facility]) Allergies Active Allergy Reactions Severity Noted Date Comments Jerod Inhibitors Cough 12/12/2009 Sulfa Antibiotics 06/08/1999 Gi upset/diarrhea Tamsulosin Medium 01/28/2023 Lightheaded/dizzy, insomnia documented as of this encounter (statuses as of 04/02/2023) Medications Medication Sig Dispensed Refills Start Date End Date Status ASPIRIN 81 MG PO CHEWIndications:Othe r chest pain One pill by mouth once a day with food 100 Tab 5 11/29/2009 Active CENTRUM SILVER PO TABS one tablet daily 0 Active Metoprolol Succinate ER 50 MG Oral Tablet Extended Release 24 Hour (Toprol XL) Take by mouth 1 Tablet in the morning AND 1 Tablet before bedtime. 180 Tablet 3 02/06/2022 Active Amiodarone HCl 200 MG Oral Tablet (Cordarone)Indicatio ns:Persistent atrial fibrillation (HCC) TAKE 1 TABLET BY MOUTH TWICE A DAY 180 Tablet 3 04/19/2022 Active Levothyroxine Sodium 50 MCG Oral Tablet (Levoxyl)Indications :Abnormal TSH Take by mouth 1 Tablet in the morning. (30 min prior to breakfast or other meds). 90 Tablet 3 05/02/2022 Active Warfarin Sodium 6 MG Oral Tablet (Coumadin) 6 MG ORALLY DAILY AT 4PM 0 12/16/2022 Active Allopurinol 100 MG Oral Tablet (Zyloprim) Take 2 Tablets by mouth in the morning. 0 01/03/2023 Active Tamsulosin HCl 0.4 MG Oral Capsule (Flomax) Take 1 Capsule by mouth in the morning. 90 Capsule 3 01/09/2023 Active Potassium Chloride Monse ER 20 MEQ Oral Tablet Extended ReleaseIndications:C ongestive cardiomyopathy (HCC),Kidney disease, chronic, stage IV (GFR 15-29 ml/min) (HCC),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 (HCC) Take 2 Tablets by mouth in the morning and 2 Tablets before bedtime. 360 Tablet 3 04/02/2023 4 Active Furosemide 40 MG Oral Tablet (Lasix) Take 2 Tablets by mouth in the morning and 2 Tablets before bedtime. 360 Tablet 3 04/02/2023 4 Active Potassium Chloride Monse ER 20 MEQ Oral Tablet Extended ReleaseIndications:H ypertensive heart and kidney disease with chronic systolic congestive heart failure and stage 4 chronic kidney disease (HCC),Congestive cardiomyopathy (HCC),Kidney disease, chronic, stage IV (GFR 15-29 ml/min) (HCC) Take 2 Tablets by mouth in the morning and 2 Tablets before bedtime. 360 Tablet 3 12/16/2022 3 Discontinue d(Refill) Furosemide 40 MG Oral Tablet (Lasix) Take 2 Tablets by mouth 2 times a day. 0 01/03/2023 3 Discontinue d(Refill) documented as of this encounter (statuses as of 04/02/2023) Active Problems Problem Noted Date Atypical atrial flutter 01/03/2023 LV (left ventricular) mural thrombus 07/ 12/2022 Severe left ventricular systolic dysfunc tion [...] 01/17/2012 10/10/2017 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 12/28/2010 01/16/2017 penitentiary current use of 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 therapy 0 12/28/2010 [...] to get [facility]. Please call patient when prescriptions have been sent. Thanks Pending Prescriptions: Disp Refills Potassium Chloride Monse ER 20 MEQ Oral Ta* 3 Sig: Take 2 Tablets by mouth in the morning and 2 Tablets before bedtime. Furosemide 40 MG Oral Tablet (Lasix) 360 Ta*0 Sig: Take 2 Tablets by mouth in the morning and 2 Tablets before bedtime. will need sent to [facility] [address] [place] [address] Message sent to provider and nurse pool. Reason for Call: No chief complaint on file. Contact: Telephone Call Contact Type: Medication Outcome: see above Face to face time spent with Patient (minutes): 0 Total Time including non face to face (minutes): 10 documented in this encounter Plan of Treatment Upcoming Encounters Date Type Specialty Care Team Description 04/30/2023 Anticoagulation Pharmacy Kimberly Mcdaniel [address] [place] [address] 05/02/2023 Office Visit Family Medicine Ioana Son, [address] [place] [address] 05/28/2023 Office Visit Urology Alli Page MD [address] [place] [address] 06/20/2023 Office Visit Cardiology Lauro Thompson PA-C [address] [facility] [place] [address] 08/18/2023 Cardiac Studies Cardiology Chino Rivas [facility] [address] [facility] [place] [address] 09/10/[address] [facility] [address] [facility] [place] [address] 09/22/2023 Office Visit Hematology Oncology Lamar Quintero MD [address] [place] [address] 09/23/2023 Office Visit Nephrology Tpi Bergman MD [address] [place] [address] Health Maintenance Due Date Last Done Comments Hepatitis C Screening 1963 Depression, Most Recent Score >= 10 (will fire each visit until score < 10) 06/14/2020 06/13/2020 COLONOSCOPY-EVERY 3 YRS AGES 18-100 01/13/2021 01/13/2018 COVID-19 Vaccine (2022- season) 2023 05/22/2021, 09/28/2020, 08/31/2020 Influenza Vaccine (FLU shot) (#1) 2023 07/16/2012, 06/22/2003 GFR 08/22/2023 02/19/2023, 0806/2022, 12/30/2022, Additional history exists TSH 09/17/2023 09/16/2022, [...] Documents on File Type Date Recorded Patient Entry Examiner Expl anation Advance Directives and Living Will 02/04/2019 ADVANCE DIRECTIVE / LIVING WILL Power of Quality Assurance Consultant 02/04/2019 POWER OF A TTORNEY Latest Code [...] the patient have Health Care Power of Quality Assurance Consultant? No Care Teams Lens Cutter Relationship Specialty Start Date End Date Ioana Son, [address] [place] [phone] PCP - General Internal Medicine 02/10/17 documented as of this encounter
--- OUTSIDE RECORDS SUMMARY | 2023-06-22 18:22 | External Medical Summary | Summary of Care ---
Author Name Unknown Organization [facility] Address [address] [facility] [place] [address] Phone [phone] Care Team Providers Care Station Chief Name Role Phone Ioana Son DO Primary Care Provider [phone] Reason for Visit * Reason Onset Date Comments Med Request 04/02/2023 Encounter Details Date Type Department Care Team Description 04/02/2023 Refill Family Medicine [address] [place] [phone] Ioana Son DO [address] [place] [address] [place] [address] Congestive cardiomyopathy (HCC); Kidney disease, chronic, stage IV (GFR 15-29 ml/min) ([facility]); 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 ([facility]) Allergies Active Allergy Reactions Severity Noted Date Comments Jerod Inhibitors Cough 12/12/2009 Sulfa Antibiotics 06/08/1999 Gi upset/diarrhea Tamsulosin Medium 01/28/2023 Lightheaded/dizzy, insomnia documented as of this encounter (statuses as of 04/03/2023) Medications Medication Sig Dispensed Refills Start Date [...] as of this encounter (statuses as of 04/03/2023) Active Problems Problem Noted Date Atypical atrial [...] as of this encounter (statuses as of 04/03/2023) Resolved Problems Problem Noted Date Resolved Date [...] 01/17/2012 10/10/2017 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 12/28/2010 01/16/2017 intermission coordinator current use of 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 therapy 0 12/28/2010 10/27/2020 Overview: ICD-10 update of inactive term Automatic implantable cardioverter-defibrillator in situ 09/14/2010 06/12/2017 SYSTOLIC HYPERTENSION 12/13/2009 06/12/2017 FAMILY HX,CARDIOVASCULAR DISEASE 07/26/2008 02/10/2017 ADVANCE DIRECTIVE INFORMATION 01/13/2006 Overview: Pt took booklet. Family history of other cardiovascular diseases 07/26/2008 Overview: ICD-10 update of inactive term documented as of this encounter (statuses as of 04/03/2023) Immunizations Name Administration Dates Next Due COVID-19 mRNA, LNP-s, No Pre serve, 2-Dose Series (Moderna) 09/28/2020,08/31/2020 COVID-19, mRNA, LNP-s, PF, B ooster, 100mcg/0.5mg (Moderna) 05/22/2021 Pneumococcal Conjugate Vacc, 13 Valent (Prevnar) 07/07/2015 Pneumococcal Polysaccharide PPV23 (Pneumovax) Seasonal Influenza, Split, IIV3, With Preserve, Inj 07/16/2012,06/22/2003 TD - Tetanus/Diptheria (ADULT) 12/29/1995 TD, Preservative Free 12/11/2018 TDAP (age 10 [...] Telephone Encounter - Martita Manning RN - 04/03/2023 8:41 AM EDTSigned Prescriptions: Disp Refills Potassium Chloride Monse [...] Tablets before bedtime. will need sent to [facility] [address] [place] [address] Message sent to provider and nurse pool. Reason for Call: No chief complaint on file. Contact: Telephone Call Contact Type: Medication Outcome: see above Face to face time spent with Patient (minutes): 0 Total Time including non face to face (minutes): 10 documented in this encounter Plan of Treatment Upcoming Encounters Date Type Specialty Care Team Description 04/30/2023 Anticoagulation Pharmacy [address] [place] [address] 05/02/2023 Office Visit Family Medicine Ioana Son[address] [place] [phone] 05/28/2023 Office Visit Urology Alli Page MD [address] [place] [address] 06/20/2023 Office Visit Cardiology Mary Lou Brody PA-C [address] [facility] [place] [address] 08/18/2023 Cardiac Studies Cardiology Rob, [facility] [address] [place] [address] 09/10/2023 Laboratory Laboratory [facility] [address] [place] [address] 09/22/2023 Office Visit Hematology Oncology Lamar Quintero MD 200 [place] [address] 09/23/2023 Office Visit Nephrology Tip Bergman MD 200 [place] [address] Health Maintenance Due Date Last Done Comments [...] 06/14/2022, Additional history exists HbA1c 10/30/2023 10/29/2022, 0509/2021, 11/03/2020, Additional history exists Hgb 12/24/2023 12/23/2022, [...] Documents on File Type Date Recorded Patient Smoking Tobacco Packing Machine Hand Expl anation Advance Directives and Living Will 02/04/2019 ADVANCE DIRECTIVE / LIVING WILL Power of Wax Pumper 02/04/2019 POWER OF A TTORNEY Latest Code [...] the patient have Health Care Power of Wax Pumper? No Care Teams Station Chief Relationship Specialty Start Date End Date Ioana Son, [address] [place] [address] PCP - General Internal Medicine 02/10/17 documented as of this encounter
--- OUTSIDE RECORDS SUMMARY | 2023-06-22 18:22 | External Medical Summary | Summary of Care ---
Author Name Unknown Organization [facility] Address [address] [facility] [address] Phone [phone] Care Team Providers Care Icu Clerk Name Role Phone SonIoana wall Primary Care Provider [phone] Reason for Visit * Reason Comments Dosage Adjustment In Person (Anticoag Cl inic) Encounter Details Date Type Department Care Team (Latest Contact Info) Description 06/04/2023 9:40 AM EST Anticoagulation Pharmacy, [facility] 132 [facility] [place] [address] [facility] 132 [facility] [place] [address] Apical mural thrombus*; 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; terminal carman current use of 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 therapy Allergies Active Allergy Reactions Criticality Noted Date Comments Jerod Inhibitors Cough 12/12/2009 Sulfa Antibiotics 06/08/1999 Gi upset/diarrhea Tamsulosin Medium 01/28/2023 Lightheaded/dizzy, insomnia documented as of this encounter (statuses as of 06/04/2023) Medications Medication Sig Dispensed Refills Start Date [...] before bedtime. 180 Tablet 3 02/06/2022 Active Levothyroxine Sodium 50 MCG Oral Tablet (Levoxyl)Indications: Abnormal TSH Take by mouth 1 Tablet in [...] the morning. 30 Tablet 6 05/28/2023 Active documented as of this encounter (statuses as of 06/04/2023) Active Problems Problem Noted Date Diagnosed Date [...] as of this encounter (statuses as of 06/04/2023) Resolved Problems Problem Noted Date Diagnosed Date [...] 01/17/2012 10/10/2017 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 12/28/2010 01/16/2017 alf current use of ant icoagulant therapy 12/28/2010 10/27/2020 Overview: ICD-10 update of inactive term Automatic implantable cardioverter-defibrillator in situ 09/14/201006/12 SYSTOLIC HYPERTENSION 12/13/20092016 FAMILY HX,CARDIOVASCULAR DISEASE 07/26/2008 02/10/2017 ADVANCE DIRECTIVE INFORMATION 01/13/2006 06/12/2017 Overview: Pt took booklet. Family history of other card iovascular diseases 07/26/2008 Overview: ICD-10 update of inactive term documented as of this encounter (statuses as of 06/04/2023) Immunizations Name Administration Dates Next Due COVID-19 [...] on file documented as of this encounter Progress Notes * Agnes Wheeler RPh - 06/04/2023 9:47 AM EST Images from the original note were not included. Medication Therapy Disease Management - Anticoagulation Patient: Celso Grant | : 1945 Subjective Patient-Reported Symptoms: Patient Findings Negatives: Signs/symptoms of thrombosis, Signs/symptoms of bleeding, Change in health, Change in alcohol use, Change in activity, Upcoming invasive procedure, Missed doses, Extra doses, Change in medications, Change in diet/appetite, Bruising Objective Current Warfarin Dose As of 06/04/2023 Warfarin maintenance plan: 2.5 mg (2.5 mg x 1) every day INR Result As of 06/04/2023 INR goal: 2.0-3.0 INR used for dosin.1 (06/04/2023) Assessment & Plan Warfarin Plan As of 06/04/2023 Full warfarin instructions: 2.5 mg every day No change documented: Agnes Wheeler RPh Next INR check: 07/09/2023 Repeat PT/INR in 5 week(s) Weekly dose: not changed Additional Dosing Information: Description Patient has 1mg, 2.5mg, 5mg and 6mg tablets Agnes Wheeler RPh Clinical Pharmacist 06/04/2023, 9:50 AM documented in this encounter Plan of Treatment Upcoming Encounters Date Type Department Care Team (Late st Contact Info) Description 06/20/2023 10:00 AM EST Office Visit Cardiology, [facility] [address] [place] [address] Lauro Thompson PA-C [address] [place], [place] [address] 07/09/2023 9:50 AM EST Anticoagulation Pharmacy, [facility] [place] [place], [place] [address] [facility] 132 [facility] [place], [place] [address] 08/18/2023 10:00 AM EST Cardiac Studies Cardiology, [facility] 132 [facility] [place], [place] [address] [facility] 132 [facility] [place] [address] 09/01/2023 10:45 AM EST Imaging Radiology [facility]st [facility] [address] [facility] [place] [address] 09/10/2023 9:30 AM EDT Laboratory [facility], [facility] [id number] [facility] 132 [facility] [place], [place] [address] 09/10/2023 4:00 PM EDT Office Visit Urology, [facility] [address] [facility] [place] [address] Alli Page MD 27 [facility] 270 [place] [address] 09/22/2023 11:00 AM EDT Office Visit Hematology/Oncology [facility] [address] [facility] [place] [address] Lamar Quintero MD 200 [facility] [place] [address] 09/23/2023 4:00 PM EDT Office Visit Nephrology, [facility] [address] [place], [place] [address] Tip Bergman MD [address] [place] [address] Health Maintenance Due Date Last Done Comments [...] Not on filedocumented as of this encounter Procedures Procedure Name Priority Date/Time Associated Diagnosis Comments INR FINGERSTICK, POINT OF CARE STAT 06/04/2023 9:47 AM EST 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 alf current use of 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 therapy documented in this encounter Results * INR FINGERSTICK, POINT OF CARE (06/04/2023 9:47 AM EST) Fingerstick INR 3.1 INR 9:50 AM EST [facility]10 Blood 06/04/2023 9:47 AM EST 06/04/2023 9:49 AM EST Narrative [facility] - 06/04/2023 9:50 AM EST Therapeutic ranges for non-operative patients: Prophylaxsis/treatment of DVT: (Range:2.0-3.0) Treatment of pulmonary embolism:(Range:2.0-3.0) Prevention of systemic embolism from: -tissue heart valves -acute myocardial infarction -valvular heart disease -atrial fibrillation (Range: 2.0-3.0) Mechanical prosthetic valves: (Range: 2.5-3.5) Agnes Wheeler [facility] POINT OF C ARE TEST DOCKED DEVICE UNSOLICITED RESULTS [facility]-10 [address] [place] [address] documented in this encounter Visit Diagnoses Diagnosis Apical mural thrombus- Primary Acute myocardial infarction of other anterior wall, episode of care unspecified 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 Encounter for therapeutic drug monitoring terminal carman current use of 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 therapy documented in this encounter Advance Directives Documents on File Type Date Recorded Patient Coldfusion Expl anation Advance Directives and Living Will 02/04/2019 ADVANCE DIRECTIVE / LIVING WILL Power of Learning Administrator 02/04/2019 POWER OF A TTORNEY Latest Code [...] the patient have Health Care Power of Learning Administrator? No Care Teams Icu Clerk Relationship Specialty Start Date End Date Ioana Son DO [address] [place] [address] [place] [address] PCP - General Internal Medicine 02/10/17 documented as of this encounter"
--- OUTSIDE RECORDS SUMMARY | 2023-06-22 18:22 | External Medical Summary | Summary of Care ---
Author Name Unknown Organization [facility] Address [address] [facility] [address] Phone [phone] Care Team Providers Care Rug Setter Velvet Name Role Phone SonIoana wall Primary Care Provider [phone] Reason for Visit * Reason Comments Dosage Adjustment In Person (Anticoag Cl inic) Encounter Details Date Type Department Care Team Description 04/02/2023 Anticoagulation Pharmacy, [facility] 132 [facility] [place] [address] [facility] 132 [facility] [place] [address] Apical mural thrombus*; 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; long-term current use of 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 therapy Allergies Active Allergy Reactions Severity Noted Date [...] other meds). 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 360 Tablet 3 12/16/2022 Active Warfarin Sodium 6 MG Oral Tablet (Coumadin) 6 MG ORALLY DAILY AT 4PM 0 12/16/2022 Active Furosemide 40 MG Oral Tablet (Lasix) Take 2 Tablets by mouth 2 times a day. 0 01/03/2023 Active Allopurinol 100 MG Oral Tablet (Zyloprim) Take 2 Tablets by mouth in the morning. 0 01/03/2023 Active Tamsulosin HCl 0.4 MG Oral Capsule (Flomax) Take 1 Capsule by mouth in the morning. 90 Capsule 3 01/09/2023 Active documented as of this encounter (statuses [...] 01/17/2012 10/10/2017 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 12/28/2010 01/16/2017 long-term current use of 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 therapy 0 12/28/2010 [...] Progress Notes * Agnes Wheeler RPh - 04/02/2023 8:03 AM EDT Images from the original note were not included. Medication Therapy Disease Management - Anticoagulation Patient: Celso Grant | : 1945 Subjective Patient-Reported Symptoms: Patient Findings Negatives: Signs/symptoms of thrombosis, Signs/symptoms of bleeding, Change in health, Change in alcohol use, Change in activity, Upcoming invasive procedure, Missed doses, Extra doses, Change in medications, Change in diet/appetite, Bruising Objective Current Warfarin Dose As of 04/02/2023 Warfarin maintenance plan: 1.25 mg (2.5 mg x 0.5) every Mon; 2.5 mg (2.5 mg x 1) all other days INR Result As of 04/02/2023 INR goal: 2.0-3.0 INR used for dosin.9 (04/02/2023) Assessment & Plan Warfarin Plan As of 04/02/2023 Full warfarin instructions: 1.25 mg every Mon; 2.5 mg all other days Next INR check: 04/30/2023 Repeat PT/INR in 4 week(s) Weekly dose: increased Additional Dosing Information: Description Patient has 1mg, 2.5mg, 5mg and 6mg tablets Agnes Wheeler [facility] Clinical Pharmacist 04/02/2023, 8:09 AM documented in this encounter Plan of Treatment Upcoming Encounters Date Type Specialty Care Team Description 04/30/2023 Anticoagulation Pharmacy Jonas [address] [place] [address] 05/02/2023 Office Visit Family Medicine Ioana Son[address] [place] [address] 05/28/2023 Office Visit Urology Alli Page MD 27 [facility] 270 [place] [id number] 06/20/2023 Office Visit Cardiology Lauro Thompson PA-C [address] [place] [address] 08/18/2023 Cardiac Studies Cardiology [facility] [address] [place] [address] 09/10/2023 Laboratory Laboratory [facility] [address] [facility] [place] [address] 09/22/2023 Office Visit Hematology Oncology Lamar Quintero MD 200 [facility] [place] [address] 09/23/2023 Office Visit Nephrology Tip Bergman MD 200 [facility] [place] [address] Health Maintenance Due Date Last Done Comments [...] Comments INR FINGERSTICK, POINT OF CARE STAT 04/02/2023 8:06 AM EDT 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 documented in this encounter Results * INR FINGERSTICK, POINT OF CARE (04/02/2023 8:06 AM EDT) Fingerstick INR 1.9 INR 8:09 AM EDT [facility]10 Blood 04/02/2023 8:06 AM EDT 04/02/2023 8:09 AM EDT Narrative [facility]-10 - 04/02/2023 8:09 AM EDT Therapeutic ranges for non-operative patients: Prophylaxsis/treatment of DVT: (Range:2.0-3.0) Treatment of pulmonary embolism:(Range:2.0-3.0) Prevention of systemic embolism from: -tissue heart valves -acute myocardial infarction -valvular heart disease -atrial fibrillation (Range: 2.0-3.0) Mechanical prosthetic valves: (Range: 2.5-3.5) Agnes Wheeler [facility] LAB POINT OF C ARE TEST DOCKED DEVICE UNSOLICITED RESULTS [facility] 57-10 [address] [place] [address] documented in this encounter Visit Diagnoses Diagnosis Apical mural thrombus- Primary Acute myocardial infarction of other anterior wall, episode of care unspecified 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 Encounter for therapeutic drug monitoring 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 No Care Teams Rug Setter Velvet Relationship Specialty Start Date End Date Ioana Son, [address] [place] [address] PCP - General Internal Medicine 02/10/17 documented as of this encounter"
--- OUTSIDE RECORDS SUMMARY | 2023-06-22 18:22 | External Medical Summary ---
Author Name Unknown Address Unknown Organization [id number]:[facility] [place] [address] [facility] [address] Laboratory Report Ordering Provider Test Date Status CICI SAWANT 06/09/2023 14:08:03 Final Observation Date Value Abnormality Reference (Units ) Status SARS Coronavirus 2 06/09/2023 14:08:03 Negative N egative Final No SARS-CoV2 Coronavirus RNA detected by PCR (amplified probe).
This automated test was developed and its performance characteristics determined by [facility]. It has not been cleared or approved by the U.S. Food and Drug Administration (FDA). FDA does not require this test to go thru premarket FDA review. This test is used for clinical purposes. It should not be regarded as investigational or for research. This laboratory is certified under the Clinical Laboratory Improvement Amendments (CLIA) as qualified to perform high complexity clinical laboratory testing.

This test is a nucleic acid amplification test (NAAT), a reverse transcriptase polymerase chain reaction (RT-PCR) test, or a Centers for Disease Control-acceptable equivalent. The test is performed in a high complexity Clinical Laboratory Improvement Amendments-(CLIA) certified laboratory. The test is acceptable for SARS-CoV-2 diagnosis, surveillance, and travel within the [place] and to most countries. Please check with local testing authorities about requirements before travel.

The validation of bronchial specimens, tracheal aspirates, and sputum for this assay was developed and performance characteristics determined by [facility]. The validation of alternate specimen types has not been cleared or approved by the U.S. Food and Drug Administration (FDA). It has been determined that such clearance or approval is not necessary. Influenza virus A RNA [Prese nce] in Specimen by [facility] with probe detection 06/09/2023 14:08:03 Negative Negative Final No Influenza A RNA detected by PCR (amplified probe) Influenza virus B RNA [Prese nce] in Specimen by [facility] with probe detection 06/09/2023 14:08:03 Negative Negative Final No Influenza B RNA detected by PCR (amplified probe) Respiratory syncytial virus RNA [Identifier] in Specimen by [facility] with probe detection 06/09/2023 14:08:03 Negative Negative Final No Respiratory Syncytial Vir us RNA detected by PCR (amplified probe) Performing Location [facility] [place] [address] [address] [facility] [address]
--- OUTSIDE RECORDS SUMMARY | 2023-06-22 18:22 | External Medical Summary | Summary of Care ---
Author Name Unknown Organization [facility] Address [address] [facility] [place] [address] Phone [phone] Care Team Providers Care Temperature Inspector Name Role Phone Ioana Son DO Primary Care Provider [phone] Reason for Visit * Reason Onset Date Comments Med Request 04/02/2023 Encounter Details Date Type Department Care Team Description 04/02/2023 Refill Family Medicine [address] [place] [id number] Ioana Son DO [address] [place] [address] [place] [address] Congestive cardiomyopathy (HCC); Kidney disease, chronic, stage IV (GFR 15-29 ml/min) ([facility]); 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 ([facility]) Allergies Active Allergy Reactions Severity [...] 01/17/2012 10/10/2017 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 12/28/2010 01/16/2017 senior living current use of 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 therapy 0 12/28/2010 [...] [facility] Please call patient when prescriptions have been sent. Thanks Pending Prescriptions: Disp Refills Potassium Chloride Monse ER 20 MEQ Oral Ta* 3 Sig: Take 2 Tablets by mouth in the morning and 2 Tablets before bedtime. Furosemide 40 MG Oral Tablet (Lasix) 360 Ta*0 Sig: Take 2 Tablets by mouth in the morning and 2 Tablets before bedtime. will need sent to [facility] [address] [place] [address] Message sent to provider and nurse pool. Reason for Call: No chief complaint on file. Contact: Telephone Call Contact Type: Medication Outcome: see above Face to face time spent with Patient (minutes): 0 Total Time including non face to face (minutes): 10 documented in this encounter Plan of Treatment Upcoming Encounters Date Type Specialty Care Team Description 04/30/2023 Anticoagulation Pharmacy Kimberly Mcdaniel [address] [place] [address] 05/02/2023 Office Visit Family Medicine Ioana Son, [address] [place] [address] 05/28/2023 Office Visit Urology Alli Page MD [address] [place] 270 [place] [address] 06/20/2023 Office Visit Cardiology Lauro Thompson PA-C [address] [place] [address] 08/18/2023 Cardiac Studies Cardiology Chino Rivas [facility] [address] [facility] [address] 09/10/2023 Laboratory Laboratory [facility] [address] [facility] [place] [address] 09/22/2023 Office Visit Hematology Oncology Lamar Quintero MD [address] [place] [address] 09/23/2023 Office Visit Nephrology Tip Bergman MD [address] [place] [address] Health Maintenance Due Date Last Done Comments [...] Documents on File Type Date Recorded Patient Communications Manager Expl anation Advance Directives and Living Will 02/04/2019 ADVANCE DIRECTIVE / LIVING WILL Power of Ship Officer 02/04/2019 POWER OF A TTORNEY Latest Code [...] the patient have Health Care Power of Ship Officer? No Care Teams Temperature Inspector Relationship Specialty Start Date End Date Ioana Son, [address] [place] [id number] PCP - General Internal Medicine 02/10/17 documented as of this encounter
--- OUTSIDE RECORDS SUMMARY | 2023-06-22 18:22 | External Medical Summary | Summary of Care ---
Author Name Unknown Organization [facility] Address [address] [place] [address] Phone [phone] Care Team Providers Care Heel Seat Trimmer Name Role Phone Ioana Son Primary Care Provider Reason for Visit * Reason Comments Cough Congestion Encounter Details Date Type Department Care Team (Latest Contact Info) Description 06/09/2023 1:10 PM EST Convenient Care Visit [facility] [address] [place] [address] Micaela Garrett PA-C [address] [place] [address] Acute bacterial rhinosinusitis*; CKD (chronic kidney disease) stage 4, GFR 15-29 ml/min ([facility]) Allergies Active Allergy Reactions Criticality Noted Date Comments Jerod Inhibitors Cough 12/12/2009 Sulfa Antibiotics 06/08/1999 Gi upset/diarrhea Tamsulosin Medium 01/28/2023 Lightheaded/dizzy, insomnia documented as of this encounter (statuses as of 06/09/2023) Medications Medication Sig Dispensed Refills Start Date [...] disease, chronic, stage IV (GFR 15-29 ml/min) ([facility]),Hypertensive heart and kidney disease with chronic systolic [...] the morning. 30 Tablet 6 05/28/2023 Active Amoxicillin-Pot Clavulanate 500-125 MG Oral Tablet (Augmentin)Indication s:Acute bacterial rhinosinusitis,CKD (chronic kidney disease) stage 4, GFR 15-29 ml/min ([facility]) Take 1 Tablet by mouth in the morning and 1 Tablet before bedtime. Do all this for 10 days. 20 Tablet 0 06/09/2023 06/19/2023 Active documented as of this encounter (statuses as of 06/09/2023) Active Problems Problem Noted Date Diagnosed Date [...] as of this encounter (statuses as of 06/09/2023) Resolved Problems Problem Noted Date Diagnosed Date [...] 12/28/2010 01/16/2017 senior living current use of ant icoagulant therapy 12/28/2010 10/27/2020 Overview: ICD-10 update of inactive term Automatic implantable cardioverter-defibrillator in situ 09/14/201006/12 SYSTOLIC HYPERTENSION 12/13/20092016 FAMILY HX,CARDIOVASCULAR DISEASE 07/26/2008 02/10/2017 ADVANCE DIRECTIVE INFORMATION 01/13/2006 06/12/2017 Overview: Pt took booklet. Family history of other card iovascular diseases 07/26/2008 Overview: ICD-10 update of inactive term documented as of this encounter (statuses as of 06/09/2023) Immunizations Name Administration Dates Next Due COVID-19 [...] on file documented as of this encounter Last Filed Vital Signs Vital Sign Reading Time Taken Comments Blood Pressure 130/68 06/09/2023 1:30 PM EST Pulse 82 06/09/2023 1:30 PM EST Temperature 36.8 C (98.2 F) 06/09/2023 1:30 PM ES T Respiratory Rate 16 06/09/2023 1:30 PM EST Oxygen Saturation 95% 06/09/2023 1:30 PM EST Inhaled Oxygen Concentration - - Weight 115.2 kg (254 lb) 06/09/2023 1:30 PM EST Height 182.9 cm (6') 06/09/2023 1:30 PM EST Body Mass Index 34.45 06/09/2023 1:30 PM EST documented in this encounter Patient Instructions * Patient Instructions* Micaela Garrett PA-C - 06/09/2023 1:50 PM EST Take all medications as prescribed You can use one medication from each of the following types for symptom relief: Nasal Williams: Flonase, Nasacort, OR Nasonex, in addition to one of these medicated nasal spray use saline nasal spray to avoid dryness and thin out mucous. Two pumps in each nostril daily. Try to keepin sinuses as long as possible. OTC antihistamine: (claritin, zyrtec, xyzal or manuel), one daily OTC decongestants:CORICIDIN HBP DAY/NIGHT Continue supportive measures-- Drink plenty of fluids, rest, cool mist humidifier, hot showers. When you have a sore throat: Dry up the drip! Use an antihistamine (cetirizine, loratidine) to help with post nasal drip, or decongestants if you are over the age of 12. Continue supportive measures - rest, push fluids, as needed acetaminophen/ibuprofen per package directions for pain/fevers, salt water gargles It is important to swallow frequently (every 30 seconds). Recommend a clear, non-alcoholic liquid such as water or most fruit juices. Lozenges do not improve the overall health/pain in the ocean transportation intermediary,as they utilize infected mucus to soothe the back of the throat. Recommend avoidance of citrus juices because these can be astringent/irritating. Recommend avoidance of dairy as this makes mucus thick and sticky. Popsicles and ice are good for people who prefer cold, and tea is good for people who prefer warm. You may also use ibuprofen or acetaminophen OTC for relief of pain or fevers. If you were Prescribed antibiotics, be sure to finish entire course even if you are feeling better. You can take florajen, a probiotic if you get nausea/diarrhea with antibiotics. Recommend taking them in between doses of antibiotic for max efficacy. Follow up with PCP within 5-7 day(s) if no improvement, sooner if worse. Go to the ED if any new or severe symptoms appear. documented in this encounter Progress Notes * Micaela Garrett PA-C - 06/09/2023 1:35 PM EST Celso Grant is a 77 year old male. who presents with upper respiratory symptoms for 1.5 week(s) Patient was accompanied by Self. HPI Signs and Symptoms include: cough/congestion Severity of Symptoms: Moderate Timing (how often does it occur): Constant Modifying Factors (what was done since onset of symptoms): delsym Constitutional: no fevers, chills, sweats, fatigue Recent illnesses in household: yes Patient has not been positive for COVID in the last 90 days ROS All others negative other than those noted in HPI HISTORY Patient Active Problem List Diagnosis Code Non-ischemic cardiomyopathy (HCC) I42.8 Atrial fibrillation (HCC) I48.91 Gout M10.9 Biventricular implantable cardioverter-defibrillator in situ Z95.810 MGUS (monoclonal gammopathy of unknown significance) D47.2 HTN, goal below 140/90 I10 Prediabetes R73.03 Tubular adenoma of rectum D12.8 Secondary hyperparathyroidism of renal origin (HCC) N25.81 Iron deficiency anemia due to chronic blood loss D50.0 Heart failure, systolic, chronic, etiology unknown (HCC) I50.22 Dyslipidemia, goal LDL below 70 E78.5 Rising PSA following treatment for malignant neoplasm of prostate R97.21 Sustained VT (ventricular tachycardia) (HCC) I47.20 Congestive cardiomyopathy (HCC) I42.0 Paroxysmal atrial fibrillation (HCC) I48.0 Ventricular fibrillation (HCC) I49.01 Benign hypertension with chronic kidney disease, stage IV (HCC) I12.9, N18.4 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 (HCC) I13.0, I50.22, N18.4 Kidney disease, chronic, stage IV (GFR 15-29 ml/min) (HCC) N18.4 Prostate cancer (HCC) C61 Apical mural thrombus I51.3 Atypical atrial flutter (HCC) I48.4 LV (left ventricular) mural thrombus I51.3 Severe left ventricular systolic dysfunction I51.9 Current Outpatient Medications Medication Sig Dispense Refill Amoxicillin-Pot Clavulanate 500-125 MG Oral Tablet (Augmentin) Take 1 Tablet by mouth in the morning and 1 Tablet before bedtime. Do all this for 10 days. 20 Tablet 0 ASPIRIN 81 MG PO CHEW One pill by mouth once a day with food 100 Tab 5 CENTRUM SILVER PO TABS one tablet daily Metoprolol Succinate ER 50 MG Oral Tablet Extended Release 24 Hour (Toprol XL) Take by mouth 1 Tablet in the morning AND 1 Tablet before bedtime. 180 Tablet 3 Levothyroxine Sodium 50 MCG Oral Tablet (Levoxyl) Take by mouth 1 Tablet in the morning. (30 min prior to breakfast or other meds). 90 Tablet 3 Warfarin Sodium 6 MG Oral Tablet (Coumadin) 6 MG ORALLY DAILY AT 4PM Allopurinol 100 MG Oral Tablet (Zyloprim) Take 2 Tablets by mouth in the morning. Tamsulosin HCl 0.4 MG Oral Capsule (Flomax) Take 1 Capsule by mouth in the morning. 90 Capsule 3 Potassium Chloride Monse ER 20 MEQ Oral Tablet Extended Release Take 2 Tablets by mouth in the morning and 2 Tablets before bedtime. 360 Tablet 3 Furosemide 40 MG Oral Tablet (Lasix) Take 2 Tablets by mouth in the morning and 2 Tablets before bedtime. 360 Tablet 3 Amiodarone HCl 200 MG Oral Tablet (Cordarone) TAKE 1 TABLET BY MOUTH TWICE A DAY 180 Tablet 3 Bicalutamide 50 MG Oral Tablet (Casodex) Take 1 Tablet by mouth in the morning. 30 Tablet 6 No current facility-administered medications for this visit. Past Medical History: Diagnosis Date Acute pyelonephritis Prostate cancer (HCC) 08/02/2013 Past Surgical History: Procedure Laterality Date COLONOSCOPY, DIAGNOSTIC (RECTUM) 01/13/2018 adenomatous polyp, diverticulosis, repeat 3 yrs/[facility] COMBINED RT & LEFT HEART CATHETERS 12/07/2009 Dilated cardiomyopathywith severe LV dysfunction;systolic hypertnesion; elevated LV pressures; mildMR; 20-30% distal LAD; 30% distal right t coronary IMPACT TOOTH REMOV PART BONY late teens wisdom teeth extraction LEFT VENTRICULAR PACING ELECTRODE, ADD-ON 09/04/2010 CS LEAD PLACEMENT WITH INITIAL DEVICE performed by SABINA ARIZA IV at [facility] NEEDLE/PUNCH BIOPSY OF PROSTATE 06/20/03 Prostate,Needle/Punch Biopsy NEEDLE/PUNCH BIOPSY OF PROSTATE 03/12/04 Prostate,Needle/Punch Biopsy NEEDLE/PUNCH BIOPSY OF PROSTATE 03-15-2013 Prostate,Needle/Punch Biopsy REMOVE TONSILS & ADENOIDS, UNDER 12 1950 T&A VASC DUPLEX AORTA, IVC, ILIAC- LMTD 01/29 Normal abd.aorta and iliac artery duplex study Review of patient's allergies indicates: Allergen Reactions Tamsulosin Lightheaded/dizzy, insomnia Jerod Inhibitors Cough Sulfa Antibiotics Gi upset/diarrhea Family History Problem Relation Age of Onset Cancer Mother age 65- brain cancer Heart Disorder Father age 73- ID Heart Disorder Uncle (Unspecified) p. 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 Tobacco Use Smoking status: Never Smokeless tobacco: Never Vaping Use Vaping Use: Never used Substance and Sexual Activity Alcohol use: Yes Alcohol/week: 0.0 standard drinks of alcohol Comment: on occasion- not a lot, watches closely Drug use: No Sexual activity: Yes Other Topics Concern Not on file Social History Narrative Not on file Social Determinants of Health Financial Resource Strain: Not on file Food Insecurity: No Food Insecurity (06/13/2020) Hunger Vital Sign Worried About Running Out of Food in the Last Year: Never true Ran Out of Food in the Last Year: Never true Transportation Needs: Not on file Physical Activity: Not on file Stress: Not on file Social Connections: Not on file Intimate Partner Violence: Not on file Housing Stability: Not on file OBJECTIVE BP 130/68 | Pulse 82 | Temp 36.8 C (98.2 F) (Tympanic) | Resp 16 | Ht 1.829 m (6') | Wt 115.2 kg (254 lb) | SpO2 95% | BMI 34.45 kg/m | BSA 2.42 m Physical Exam: General Appearance: awake, alert, no apparent distress HEENT: perrl and eomi Tm right: clear, normal light reflex, no erythema Tm left: clear, normal light reflex, no erythema oral pharynx clear, mucus membranes moist + red and irritated pharynx no sinus tenderness or facial pain to percussion + turbinate engorgement and discharge Neck: normal, supple, + adenopathy Respiratory: clear to auscultation, +left sided rhonchi, no wheezes and no crackles Heart: regular rate, regular rhythm, no murmurs , no rubs and no gallops Skin: skin color, texture, turgor are normal, no rashes or significant lesions Patient instructions: Patient Instructions Take all medications as prescribed You can use one medication from each of the following types for symptom relief: Nasal Williams: Flonase, Nasacort, OR Nasonex, in addition to one of these medicated nasal spray use saline nasal spray to avoid dryness and thin out mucous. Two pumps in each nostril daily. Try to keepin sinuses as long as possible. OTC antihistamine: (claritin, zyrtec, xyzal or manuel), one daily OTC decongestants:CORICIDIN HBP DAY/NIGHT Continue supportive measures-- Drink plenty of fluids, rest, cool mist humidifier, hot showers. When you have a sore throat: Dry up the drip! Use an antihistamine (cetirizine, loratidine) to help with post nasal drip, or decongestants if you are over the age of 12. Continue supportive measures - rest, push fluids, as needed acetaminophen/ibuprofen per package directions for pain/fevers, salt water gargles It is important to swallow frequently (every 30 seconds). Recommend a clear, non-alcoholic liquid such as water or most fruit juices. Lozenges do not improve the overall health/pain in the detention,as they utilize infected mucus to soothe the back of the throat. Recommend avoidance of citrus juices because these can be astringent/irritating. Recommend avoidance of dairy as this makes mucus thick and sticky. Popsicles and ice are good for people who prefer cold, and tea is good for people who prefer warm. You may also use ibuprofen or acetaminophen OTC for relief of pain or fevers. If you were Prescribed antibiotics, be sure to finish entire course even if you are feeling better. You can take florajen, a probiotic if you get nausea/diarrhea with antibiotics. Recommend taking them in between doses of antibiotic for max efficacy. Follow up with PCP within 5-7 day(s) if no improvement, sooner if worse. Go to the ED if any new or severe symptoms appear. ASSESSMENT AND PLAN Acute bacterial rhinosinusitis (Primary) - Amoxicillin-Pot Clavulanate 500-125 MG Oral Tablet (Augmentin); Take 1 Tablet by mouth in the morning and 1 Tablet before bedtime. Do all this for 10 days. - INFLUENZA A/B RSV SARS-COV2,PCR; Future; Expected date: 06/09/2023 - INFLUENZA A/B RSV SARS-COV2,PCR CKD (chronic kidney disease) stage 4, GFR 15-29 ml/min ([facility]) - Amoxicillin-Pot Clavulanate 500-125 MG Oral Tablet (Augmentin); Take 1 Tablet by mouth in the morning and 1 Tablet before bedtime. Do all this for 10 days. - INFLUENZA A/B RSV SARS-COV2,PCR; Future; Expected date: 06/09/2023 - INFLUENZA A/B RSV SARS-COV2,PCR Due to timing of course with symptomatic management, will give antibiotics to cover for bacterial infection. Dose adjustment according to CKD status. To get xr if no improvement. To screen for COVID, FLU, and RsV and continue symptomatic management. To isolate until results come back. Care instructions given. Additional instructions per patient instructions attached. Follow up with PCP in 7 days if symptoms persist. Reasons to go to ED discussed with patient including but not limited to development of acute or severe symptoms. Patient agrees with the plan and demonstrates verbal understanding. Patient stable at the time of discharge. Patient goals for plan of care were discussed. Micaela Garrett PA-C [address] [place] [address] documented in this encounter Nursing Notes * Rhonda Jaeger LPN - 06/09/2023 1:32 PM EST 77 yo male presents with cough/congestion x 1-1 1/2 wks. Took delsym today documented in this encounter Plan of Treatment Upcoming Encounters Date Type Department Care Team (Late st Contact Info) Description 06/20/2023 10:00 AM EST Office Visit Cardiology, [facility] [address] [place] [address] Lauro Thompson PA-C [address] [place] [address] 07/09/2023 9:50 AM EST Anticoagulation Pharmacy, [facility] [address] [place] [address] Jon[facility] [address] [place] [address] 08/18/2023 10:00 AM EST Cardiac Studies Cardiology, [facility] 132 [facility] [place] [address] [facility] 132 [facility] [place] [address] 09/01/2023 10:45 AM EST Imaging Radiology [facility] [address] [place] [address] 09/10/2023 9:30 AM EDT Laboratory Laboratory, [address] [place] [id number] [facility] [address] [address] 09/10/2023 4:00 PM EDT Office Visit Urology, [facility] 132 [facility] [place] [address] Alli Page MD [address] [place] [address] 09/22/2023 11:00 AM EDT Office Visit Hematology/Oncology [facility] [address] [facility] [place] [address] Lamar Quintero MD [address] [facility] [place] [address] 09/23/2023 4:00 PM EDT Office Visit Nephrology, [facility] [address] [facility] [place] [address] Tip Bergman MD [address] [facility] [place] [address] Pending Results Name Type Priority Associated Diagnoses Date /Time INFLUENZA A/B RSV SARS-COV2,PCR Lab Routine Acute bacterial rhinosinusitis CKD (chronic kidney disease) stage 4, GFR 15-29 ml/min (HCC) 06/09/2023 2:08 PM EST Scheduled Orders Name Type Priority Associated Diagnoses Orde r Schedule INFLUENZA A/B RSV SARS-COV2,PCR Lab Routine Acute bacterial rhinosinusitis CKD (chronic kidney disease) stage 4, GFR 15-29 ml/min (HCC) Expected: 06/09/2023, Expires: 06/09/2024 Health Maintenance Due Date Last Done Comments Hepatitis C Screening 1963 Hepatitis B (1 of 3 - Risk 3-dose series) 2004 Depression, Most Recent Score >= 10 (will fire each visit until score < 10) 06/14/2020 06/13/2020 COLONOSCOPY-EVERY 3 YRS AGES 18-100 01/13/2021 01/13/2018 COVID-19 Vaccine ( - 2022- season) 2023 05/22/2021, 09/28/2020, 08/31/2020 Influenza Vaccine [...] as of this encounter Visit Diagnoses Diagnosis Acute bacterial rhinosinusitis- Primary CKD (chronic kidney disease) stage 4, GFR 15-29 ml/min (HCC) Chronic kidney disease, Stage IV (severe) documented in this encounter Advance Directives Documents on File Type Date Recorded 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 Question Answer Comments Discussion of Advance Directives occurred with: Not Discussed Does the patient have a Living Will? No Does the patient have Health Care Power of Card Boxer? No Care Teams Heel Seat Trimmer Relationship Specialty Start Date End Date Ioana Son DO [address] [place] [address] [place] [address] PCP - General Internal Medicine 02/10/17 documented as of this encounter"
--- OUTSIDE RECORDS SUMMARY | 2023-06-22 18:22 | External Medical Summary | Summary of Care ---
Author Name Unknown Organization [facility] Address [address] [facility] [place] [address] Phone [phone] Care Team Providers Care Machine Buffer Name Role Phone Ioana Son DO Primary Care Provider [phone] Reason for Visit * Reason Onset Date Comments Appointment 05/05/2023 Encounter Details Date Type Department Care Team (Late st Contact Info) Description 05/05/2023 Telephone Family Medicine [address] [phone] Ioana Son [address] [place] [address] Appointment Allergies Active Allergy Reactions Criticality Noted Date Comments Jerod Inhibitors Cough 12/12/2009 Sulfa Antibiotics 06/08/1999 Gi upset/diarrhea Tamsulosin Medium 01/28/2023 Lightheaded/dizzy, insomnia documented as of this encounter (statuses as of 05/05/2023) Medications Medication Sig Dispensed Refills Start Date [...] A DAY 180 Tablet 3 04/02/2023 Active documented as of this encounter (statuses as of 05/05/2023) Active Problems Problem Noted Date Diagnosed Date [...] prostate 09/07/2018 Overview: Treated with XRT 2015 with temporary androgen deprivation Showed biochemical failure [...] as of this encounter (statuses as of 05/05/2023) Resolved Problems Problem Noted Date Diagnosed Date [...] 01/17/2012 10/10/2017 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 12/28/2010 01/16/2017 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 Family history of other card iovascular diseases 07/26/2008 Overview: ICD-10 update of inactive term documented as of this encounter (statuses as of 05/05/2023) Immunizations Name Administration Dates Next Due COVID-19 [...] encounter Miscellaneous Notes * Telephone Encounter - John Dickinson OSA - 05/05/2023 10:35 AM EST I spoke to pt. He is rs'd w/ Dianelys Rodriguez * Telephone Encounter - Martita Manning RN - 05/05/2023 9:50 AM EST Patient called today and apologized he missed his 6mth appointment with Dr. Son on Friday and needs to reschedule . Please call him to offer another appointment with Ioana Son DO or Dr. Jordan if she is not available . Please talk to patient he does not get VM or messages. Thanks Message to scheduling to get patient reschedule documented in this encounter Plan of Treatment Upcoming Encounters Date Type Department Care Team (Late st Contact Info) Description 05/16/2023 8:40 AM EST Office Visit Family Medicine [address] [place] [address] Dianelys Rodriguez PA-C [address] [place] [address] [place] [address] 05/28/2023 2:45 PM EST Office Visit Urology, [facility] [address] [facility] [place] [address] Alli Page MD [address] [address] [place] [address] 06/04/2023 9:40 AM EST Anticoagulation Pharmacy, [facility] [address] [facility] [place] [address] Jonas [facility] [place], [place] [address] 06/20/2023 10:00 AM EST Office Visit Cardiology, [facility] [place] [address] Lauro Thompson PA-C [facility] [place] [address] 08/18/2023 10:00 AM EST Cardiac Studies Cardiology, [facility] 132 [facility] [place] [address] Chino Rivas [facility] [place] [address] 09/10/2023 9:30 AM EDT Laboratory Laboratory, [address] [place] [address] [facility] [address] [place] [address] 09/22/2023 11:00 AM EDT Office Visit Hematology/Oncology [facility] [address] [place] [address] Lamar Quintero MD [address] [place] [address] 09/23/2023 4:00 PM EDT Office Visit Nephrology, [facility] [address] [place] [address] Tip Bergman MD [address] [place] [address] Health Maintenance Due Date Last Done Comments Hepatitis C Screening 1963 Hepatitis B (1 of 3 - Risk 3-dose series) 2004 Depression, Most Recent Score >= 10 (will fire each visit until score < 10) 06/14/2020 06/13/2020 COLONOSCOPY-EVERY 3 YRS AGES 18-100 01/13/2021 01/13/2018 COVID-19 Vaccine (4 - 2022- season) 2023 05/22/2021, 09/28/2020, 08/31/2020 [...] Not on filedocumented as of this encounter Advance Directives Documents on File Type Date Recorded Patient Freight Flagman Expl anation Advance Directives and Living Will 02/04/2019 ADVANCE DIRECTIVE / LIVING WILL Power of Bulldozer/Loader/Compactor/Scraper 02/04/2019 POWER OF A TTORNEY Latest Code [...] the patient have Health Care Power of Bulldozer/Loader/Compactor/Scraper? No Care Teams Machine Buffer Relationship Specialty Start Date End Date Ioana Son DO [address] [place] [address] [place] [address] PCP - General Internal Medicine 02/10/17 documented as of this encounter
--- OUTSIDE RECORDS SUMMARY | 2023-06-22 18:22 | External Medical Summary ---
Author Name Unknown Address Unknown Organization K0G:[facility] - [address] [place] [address] Laboratory Report Ordering Provider Test Date Status YANN SCHWARZ 04/02/2023 08:06:01 Final Therapeutic ranges for non-o perative patients:
Prophylaxsis/treatment of DVT: (Range:2.0-3.0)
Treatment of pulmonary embolism:(Range:2.0-3.0)
Prevention of systemic embolism from:
-tissue heart valves
-acute myocardial infarction
-valvular heart disease
-atrial fibrillation
(Range: 2.0-3.0)
Mechanical prosthetic valves: (Range: 2.5-3.5) Observation Date Value Abnormality Reference (Units ) Status INR in Capillary blood by Coagulation assay 04/02/2023 08:06:01 1.9 (INR) Final Performing Location [facility] 0 - [address] [place] [address]
--- OUTSIDE RECORDS SUMMARY | 2023-06-22 18:22 | External Medical Summary ---
Author Name Unknown Address Unknown Organization K0[facility] - [address] [place] [address] Laboratory Report Ordering Provider Test Date Status YANN SCHWARZ 06/04/2023 09:47:37 Final Therapeutic ranges for non-o perative patients:
Prophylaxsis/treatment of DVT: (Range:2.0-3.0)
Treatment of pulmonary embolism:(Range:2.0-3.0)
Prevention of systemic embolism from:
-tissue heart valves
-acute myocardial infarction
-valvular heart disease
-atrial fibrillation
(Range: 2.0-3.0)
Mechanical prosthetic valves: (Range: 2.5-3.5) Observation Date Value Abnormality Reference (Units ) Status INR in Capillary blood by Coagulation assay 06/04/2023 09:47:37 3.1 (INR) Final Performing Location [facility] 0 - [address] [place] [address]
--- OUTSIDE RECORDS SUMMARY | 2023-06-22 18:22 | External Medical Summary | Summary of Care ---
Author Name Unknown Organization [facility] Address [address] [facility] [place] [address] Phone [phone] Care Team Providers Care Dressing Room Attendant Name Role Phone SonIoana wall Primary Care Provider Reason for Visit * Reason Comments Dosage Adjustment In Person (Anticoag Cl inic) Encounter Details Date Type Department Care Team (Latest Contact Info) Description 04/30/2023 8:10 AM EDT Anticoagulation Pharmacy, [facility] 132 [facility] [place] [address] [facility] 132 [facility] [place] [address] Apical mural thrombus*; 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; rn examiner current use of 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 therapy Allergies Active Allergy Reactions Criticality Noted Date Comments Jerod Inhibitors Cough 12/12/2009 Sulfa Antibiotics 06/08/1999 Gi upset/diarrhea Tamsulosin Medium 01/28/2023 Lightheaded/dizzy, insomnia documented as of this encounter (statuses as of 04/30/2023) Medications Medication Sig Dispensed Refills Start Date [...] as of this encounter (statuses as of 04/30/2023) Active Problems Problem Noted Date Diagnosed Date [...] as of this encounter (statuses as of 04/30/2023) Resolved Problems Problem Noted Date Diagnosed Date [...] 01/17/2012 10/10/2017 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 12/28/2010 01/16/2017 rn examiner current use of ant icoagulant therapy 12/28/2010 10/27/2020 Overview: ICD-10 update of inactive term Automatic implantable cardioverter-defibrillator in situ 09/14/201006/12 SYSTOLIC HYPERTENSION 12/13/20092016 FAMILY HX,CARDIOVASCULAR DISEASE 07/26/2008 02/10/2017 ADVANCE DIRECTIVE INFORMATION 01/13/2006 06/12/2017 Overview: Pt took booklet. Family history of other card iovascular diseases 07/26/2008 Overview: ICD-10 update of inactive term documented as of this encounter (statuses as of 04/30/2023) Immunizations Name Administration Dates Next Due COVID-19 [...] this encounter Progress Notes * [facility] - 04/30/2023 8:02 AM EDT Images from the original note [...] Bruising Objective Current Warfarin Dose As of 04/30/2023 Warfarin maintenance plan: 2.5 mg (2.5 mg x 1) every day INR Result As of 04/30/2023 INR goal: 2.0-3.0 INR used for dosin.5 (04/30/2023) Assessment & Plan Warfarin Plan As of 04/30/2023 Full warfarin instructions: 04/30: 5 mg; Otherwise 2.5 mg every day Next INR check: 06/04/2023 Repeat PT/INR in 4 week(s) Weekly dose: increased Additional Dosing Information: Description Patient has 1mg, 2.5mg, 5mg and 6mg tablets [facility] Clinical Pharmacist 04/30/2023, 8:12 AM documented in this encounter Plan of Treatment Upcoming Encounters Date Type Department Care Team (Late st Contact Info) Description 05/02/2023 9:30 AM EDT Office Visit Family Medicine [address] [place] [phone] [place] [address] 05/28/2023 2:45 PM EST Office Visit Urology, [facility] 132 [facility] [place] [address] Alli Page MD 27 [facility] 270 [place] [address] 06/04/2023 9:40 AM EST Anticoagulation Pharmacy, [facility] [address] [facility] [place] [address] [facility] 132 [facility] [place], [place] [address] 06/20/2023 10:00 AM EST Office Visit Cardiology, [facility] 132 [facility] [place], [place] [address] Lauro Thompson PA-C 132 [facility] [place] [address] 08/18/2023 10:00 AM EST Cardiac Studies Cardiology, [facility] 132 [facility] [place] [address] [facility] 132 [facility] [place], [place] [address] 09/10/2023 9:30 AM EDT Laboratory Laboratory, [address] [place] [phone] [facility] 132 [place] [address] 09/22/2023 11:00 AM EDT Office Visit Hematology/Oncology [facility] [address] [place] [address] Lamar Quintero MD [address] [place] [address] 09/23/2023 4:00 PM EDT Office Visit Nephrology, [facility] [address] [place], [place] [address] Tip Bergman MD [address] [place], [place] [address] Health Maintenance Due Date Last Done Comments [...] Comments INR FINGERSTICK, POINT OF CARE STAT 04/30/2023 8:02 AM EDT 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 rn examiner current use of 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 therapy documented in this encounter Results * INR FINGERSTICK, POINT OF CARE (04/30/2023 8:02 AM EDT) Fingerstick INR 1.5 INR 8:09 AM EDT [facility]10 Blood 04/30/2023 8:02 AM EDT 04/30/2023 8:09 AM EDT Narrative [facility] - 04/30/2023 8:09 AM EDT Therapeutic ranges for non-operative patients: Prophylaxsis/treatment of DVT: (Range:2.0-3.0) Treatment of pulmonary embolism:(Range:2.0-3.0) Prevention of systemic embolism from: -tissue heart valves -acute myocardial infarction -valvular heart disease -atrial fibrillation (Range: 2.0-3.0) Mechanical prosthetic valves: (Range: 2.5-3.5) [facility] LAB POINT OF C ARE TEST DOCKED DEVICE UNSOLICITED RESULTS [facility] 132 [facility] [place] [address] documented in this encounter Visit Diagnoses Diagnosis Apical mural thrombus- Primary Acute myocardial infarction of other anterior wall, episode of care unspecified 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 Encounter for therapeutic drug monitoring MCC current use of 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 therapy documented in this encounter Advance Directives Documents on File Type Date Recorded Patient Merchant Seaman Expl anation Advance Directives and Living Will 02/04/2019 ADVANCE DIRECTIVE / LIVING WILL Power of General Laborer 02/04/2019 POWER OF A TTORNEY Latest Code [...] the patient have Health Care Power of General Laborer? No Care Teams Dressing Room Attendant Relationship Specialty Start Date End Date Ioana Son DO [address] [place] [address] [place] [address] PCP - General Internal Medicine 02/10/17 documented as of this encounter"
--- OUTSIDE RECORDS SUMMARY | 2023-06-22 18:22 | External Medical Summary ---
Author Name Unknown Address Unknown Organization K[facility] - [address] [place] [address] Laboratory Report Ordering Provider Test Date Status PREMA SOLIS 05/27/2023 14:15:17 Final Observation Date Value Abnormality Reference (Units ) Status PSA 05/27/2023 14:15:17 12.74 Above high normal <4 .10 (ng/mL) Final Performing Location [facility] - [address] [place] [address]
--- OUTSIDE RECORDS SUMMARY | 2023-06-22 18:22 | External Medical Summary ---
Author Name Unknown Address Unknown Organization [facility] - [address] [place] [address] Laboratory Report Ordering Provider Test Date Status YANN SCHWARZ 04/30/2023 08:02:24 Final Therapeutic ranges for non-o perative patients:
Prophylaxsis/treatment of DVT: (Range:2.0-3.0)
Treatment of pulmonary embolism:(Range:2.0-3.0)
Prevention of systemic embolism from:
-tissue heart valves
-acute myocardial infarction
-valvular heart disease
-atrial fibrillation
(Range: 2.0-3.0)
Mechanical prosthetic valves: (Range: 2.5-3.5) Observation Date Value Abnormality Reference (Units ) Status INR in Capillary blood by Coagulation assay 04/30/2023 08:02:24 1.5 (INR) Final Performing Location [facility] 0 - [address] [place] [address]
--- OUTSIDE RECORDS SUMMARY | 2023-06-22 18:22 | External Medical Summary | Summary of Care ---
Author Name Unknown Organization [facility] Address [address] [facility] [place] [address] Phone [phone] Care Team Providers Care Dental Billing Specialist Name Role Phone Ioana Son Primary Care Provider [phone] Reason for Visit * Reason Comments eRx-Medication Refill Encounter Details Date Type Department Care Team Description 04/02/2023 Refill Cardiology, [facility] [address] [place] [address] Mary Lou Brody PA-C [address] [place] [address] Persistent atrial fibrillation (HCC) Allergies Active Allergy Reactions Severity Noted Date Comments Jerod Inhibitors Cough 12/12/2009 Sulfa Antibiotics 06/08/1999 Gi upset/diarrhea Tamsulosin Medium 01/28/2023 Lightheaded/dizzy, insomnia documented as of this encounter (statuses as of 04/02/2023) Medications Medication Sig Dispensed Refills Start Date End Date Status ASPIRIN 81 MG PO CHEWIndications:Oth er chest pain One pill by mouth once a day with food 100 Tab 5 11/29/2009 Active CENTRUM SILVER PO TABS one tablet daily 0 Active Metoprolol Succinate ER 50 MG Oral Tablet Extended Release 24 Hour (Toprol XL) Take by mouth 1 Tablet in the morning AND 1 Tablet before bedtime. 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 360 Tablet 3 04/02/2023 03/27/20 24 Active Furosemide 40 MG Oral Tablet (Lasix) Take 2 Tablets by mouth in the morning and 2 Tablets before bedtime. 360 Tablet 3 04/02/2023 07/01/19 24 Active Amiodarone HCl 200 MG Oral Tablet (Cordarone)Indicati ons:Persistent atrial fibrillation (HCC) TAKE 1 TABLET BY MOUTH TWICE A DAY 180 Tablet 3 04/02/2023 Active Amiodarone HCl 200 MG Oral Tablet (Cordarone)Indicati ons:Persistent atrial fibrillation (HCC) TAKE 1 TABLET BY MOUTH TWICE A DAY 180 Tablet 3 04/19/2022 04/02/20 23 Discontinued documented as of this encounter (statuses as [...] encounter Miscellaneous Notes * Telephone Encounter - Mary Lou Brody PA-C - 04/02/2023 2:13 PM EDTSigned Prescriptions: Disp Refills Amiodarone HCl 200 MG Oral Tablet (Cordaro*180 Ta*3 Sig: TAKE 1 TABLET BY MOUTH TWICE A DAY Authorizing Provider: MARY LOU BRODY * Telephone Encounter - Chika Davis CMA - 04/02/2023 1:32 PM EDTPending Prescriptions: Disp Refills Amiodarone HCl 200 MG Oral Tablet [Pharmac*180 Ta*3 Sig: TAKE 1 TABLET BY MOUTH TWICE A DAY * Telephone Encounter - Chika Davis CMA - 04/02/2023 1:31 PM EDT Did you pend patient's preferred pharmacy and medication before forwarding?yes Pharmacy: [facility] [address] [place] [address] [facility] Pending Prescriptions: Disp Refills Amiodarone HCl 200 MG Oral Tablet (Cordar*180 Ta*3 Sig: TAKE 1 TABLET BY MOUTH TWICE A DAY Last Visit: 01/03/2023 (in office), 10/05/2019 (telemedicine) Next Visit: 06/20/2023 If no future appointments scheduled, and last appointment is greater than a year ago, please schedule patient for a follow-up appointment Last date the medication was ordered: Is this request for a controlled substance?No Urine Drug Screen:No results found. However, due to the size of the patient record, not all encounters were searched. Please check Results Review for a complete set of results. Patient Phone Numbers Labs: Lab Results Component Value Date/Time CREAT 2.7 (H) 02/19/2023 10:21 AM CREAT 1.55 (A) 12/24/2021 12:00 AM CREAT 2.1 (H) 07/11/2020 12:15 PM POTASSIUM 4.2 02/19/2023 10:21 AM POTASSIUM 4.4 12/24/2021 12:00 AM POTASSIUM 4.0 07/11/2020 12:15 PM TSH 3.28 09/16/2022 09:46 AM TSH 3.27 07/11/2020 12:05 PM LDLCALC 136 (H) 10/29/2022 10:33 AM LDLCALC UNINTERPRETABLE RESULT 11/30/2018 03:39 PM LDLDIRECT 77 12/28/2019 09:20 AM LDLDIRECT 147 (H) 01/27/2018 07:35 AM ALT 74 (H) 08/20/2022 07:39 AM ALT 49 07/11/2020 12:06 PM HGBA1C 6.1 (H) 10/29/2022 10:33 AM HGBA1C 6.3 (H) 12/28/2019 09:20 AM documented in this encounter Plan of Treatment Upcoming Encounters Date Type Specialty Care Team Description 04/30/2023 Anticoagulation Pharmacy [facility] 132 [facility] [place] [address] 05/02/2023 Office Visit Family Medicine Ioana Son[address] [place] [address] 05/28/2023 Office Visit Urology Alli Page MD [address] [place] [address] [place] [address] 06/20/2023 Office Visit Cardiology Mary Lou Brody PA-C 132 [address] [facility] [place] [address] 08/18/2023 Cardiac Studies Cardiology [place] 132 [address] [facility] [address] 09/10/2023 Laboratory Laboratory [facility] [address] 09/22/2023 Office Visit Hematology Oncology Lamar Quintero MD 200 [place] [address] 09/23/2023 Office Visit Nephrology Tip Bergman MD [facility] [address] Health Maintenance Due Date Last Done Comments [...] as of this encounter Visit Diagnoses Diagnosis Persistent atrial fibrillation (HCC) Atrial fibrillation documented in this encounter Advance Directives Documents on File Type Date Recorded Patient Financial Planning Assistant Expl anation Advance Directives and Living Will 02/04/2019 ADVANCE DIRECTIVE / LIVING WILL Power of Bullet Assembly Press Operator 02/04/2019 POWER OF A TTORNEY Latest Code [...] the patient have Health Care Power of Bullet Assembly Press Operator? No Care Teams Dental Billing Specialist Relationship Specialty Start Date End Date Ioana Son[address] [place] [address] PCP - General Internal Medicine 02/10/17 documented as of this encounter
--- OUTSIDE RECORDS SUMMARY | 2023-06-22 18:22 | External Medical Summary | Summary of Care ---
Author Name Unknown Organization [facility] Address [address] [place] [address] Phone [phone] Care Team Providers Care Water Use Inspector Name Role Phone Ioana Son Primary Care Provider [phone] Reason for Visit * Reason Comments Outpatient Testing Encounter Details Date Type Department Care Team (Late st Contact Info) Description 05/27/2023 2:20 PM EST Laboratory Laboratory, [facility] 132 [facility] [place] [address] [facility] 132 [place] [address] Prostate cancer (HCC) Allergies Active Allergy Reactions Criticality Noted Date Comments Jerod Inhibitors Cough 12/12/2009 Sulfa Antibiotics 06/08/1999 Gi upset/diarrhea Tamsulosin Medium 01/28/2023 Lightheaded/dizzy, insomnia documented as of this encounter (statuses as of 05/27/2023) Medications Medication Sig Dispensed Refills Start Date [...] as of this encounter (statuses as of 05/27/2023) Active Problems Problem Noted Date Diagnosed Date [...] as of this encounter (statuses as of 05/27/2023) Resolved Problems Problem Noted Date Diagnosed Date [...] 01/17/2012 10/10/2017 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 12/28/2010 01/16/2017 terminal operator current use of ant icoagulant therapy 12/28/2010 10/27/2020 Overview: ICD-10 update of inactive term Automatic implantable cardioverter-defibrillator in situ 09/14/201006/12 SYSTOLIC HYPERTENSION 12/13/20092016 FAMILY HX,CARDIOVASCULAR DISEASE 07/26/2008 02/10/2017 ADVANCE DIRECTIVE INFORMATION 01/13/2006 06/12/2017 Overview: Pt took booklet. Family history of other card iovascular diseases 07/26/2008 Overview: ICD-10 update of inactive term documented as of this encounter (statuses as of 05/27/2023) Immunizations Name Administration Dates Next Due COVID-19 [...] Care Team (Late st Contact Info) Description 05/28/2023 2:45 PM EST Office Visit Urology, [facility] 132 [facility] [place] [address] Alli Page MD [address] [place] [address] [place] [address] 06/04/2023 9:40 AM EST Anticoagulation Pharmacy, [facility] 132 [facility] [place] [address] [place] [address] 06/20/2023 10:00 AM EST Office Visit Cardiology, [facility] [address] [facility] [place] [address] Lauro Thompson PA-C 132 [facility] [place] [address] 08/18/2023 10:00 AM EST Cardiac Studies Cardiology, [facility] 132 [facility] [place] [address] [facility] 132 [facility] [place] [address] 09/10/2023 9:30 AM EDT Laboratory Laboratory, [facility] 132 [facility] [place] [phone] [facility] [place] [address] 09/22/2023 11:00 AM EDT Office Visit Hematology/Oncology [facility] [place] 200 [facility] [place], [place] [address] Lamar Quintero MD 200 [facility] [place] [address] 09/23/2023 4:00 PM EDT Office Visit Nephrology, [facility] 200 [facility] [place] [address] Tip Bergman MD 200 [place] [address] Pending Results Name Type Priority Associated Diagnoses Date /Time PSA Lab Routine Prostate cancer (HCC) 05/27/2023 2:15 PM EST Health Maintenance Due Date Last Done [...] as of this encounter Visit Diagnoses Diagnosis Prostate cancer (HCC) Malignant neoplasm of prostate documented in this encounter Advance Directives Documents on File Type Date Recorded Patient Tobacco Hanger Expl anation Advance Directives and Living Will 02/04/2019 ADVANCE DIRECTIVE / LIVING WILL Power of Demurrage Worker 02/04/2019 POWER OF A TTORNEY Latest Code [...] the patient have Health Care Power of Demurrage Worker? No Care Teams Water Use Inspector Relationship Specialty Start Date End Date Ioana Son DO [address] [place] [address] [place] [address] PCP - General Internal Medicine 02/10/17 documented as of this encounter
--- OUTSIDE RECORDS SUMMARY | 2023-06-22 18:22 | External Medical Summary | Summary of Care ---
Author Name Unknown Organization [facility] Address [address] [facility] [place] [address] Phone [phone] Care Team Providers Care Window And Door Installer Name Role Phone Ioana Son DO Primary Care Provider [phone] Reason for Visit * Reason Onset Date Comments Med Request 04/02/2023 Encounter Details Date Type Department Care Team Description 04/02/2023 Refill Family Medicine [address] [place] [phone] Ioana Son DO [address] [place] [address] [place] [address] Congestive cardiomyopathy (HCC); Kidney disease, chronic, stage IV (GFR 15-29 ml/min) ([facility]); 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 ([facility]) Allergies Active Allergy Reactions Severity Noted Date [...] 01/17/2012 10/10/2017 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 12/28/2010 01/16/2017 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 * Telephone Encounter - Martita Manning RN [...] to get all meds switched over to [facility] N/[facility]. Please call patient when prescriptions have been sent. Thanks Pending Prescriptions: Disp Refills Potassium Chloride Monse ER 20 MEQ Oral Ta* 3 Sig: Take 2 Tablets by mouth in the morning and 2 Tablets before bedtime. Furosemide 40 MG Oral Tablet (Lasix) 360 Ta*0 Sig: Take 2 Tablets by mouth in the morning and 2 Tablets before bedtime. [facility] [address] [place] [address] Message sent to provider and nurse pool. Reason for Call: No chief complaint on file. Contact: Telephone Call Contact Type: Medication Outcome: see above Face to face time spent with Patient (minutes): 0 Total Time including non face to face (minutes): 10 documented in this encounter Plan of Treatment Upcoming Encounters Date Type Specialty Care Team Description 04/30/2023 Anticoagulation Pharmacy [facility] [address] [place] [address] 05/02/2023 Office Visit Family Medicine Ioana Son[address] [place] [address] 05/28/2023 Office Visit Urology Alli Page MD [address] [place] [address] [place] [address] 06/20/2023 Office Visit Cardiology Mary Lou Brody PA-C 132 [address] [facility] [place] [address] 08/18/2023 Cardiac Studies Cardiology [facility] [place] [address] 09/10/2023 Laboratory Laboratory [facility] [address] 09/22/2023 Office Visit Hematology Oncology Lamar Quintero MD 200 [facility] [place] [address] 09/23/2023 Office Visit Nephrology Tip Bergman MD [address] [place] [address] Health Maintenance Due Date Last Done Comments [...] Documents on File Type Date Recorded Patient Travel Consultant Expl anation Advance Directives and Living Will 02/04/2019 ADVANCE DIRECTIVE / LIVING WILL Power of Reach Lift Truck Driver 02/04/2019 POWER OF A TTORNEY Latest Code [...] the patient have Health Care Power of Reach Lift Truck Driver? No Care Teams Window And Door Installer Relationship Specialty Start Date End Date Ioana Son, [address] [place] [address] PCP - General Internal Medicine 02/10/17 documented as of this encounter
--- OUTSIDE RECORDS SUMMARY | 2023-06-22 18:22 | External Medical Summary | Summary of Care ---
Author Name Unknown Organization [facility] Address [address] [facility] [place] [address] Phone [phone] Care Team Providers Care V Belt Coverer Name Role Phone Lui Park Primary Care Provider [phone] Reason for Referral * Precert (Within 10 days (routine)) - Pending Review Specialty Diagnoses / Procedures Referred By Contcarol t Referred To Contact Radiology Diagnoses Prostate cancer (HCC) Rising PSA following treatment for malignant neoplasm of prostate Procedures PET CT SKULL BASE TO MID THIGH PSMA Alli Page MD [address] [place] [address] Referral ID Status Reason Start Date Expiration Date V isits Requested Visits Authorized [id number] Pending Review 05/28/2023 999 999 Reason for Visit * Reason Comments Follow Up Encounter Details Date Type Department Care Team (Late st Contact Info) Description 05/28/2023 2:45 PM EST Office Visit Urology, [facility] [address] [facility] [place] [address] Alli Page MD [address] [place] [address] Prostate cancer (HCC)*; Rising PSA following treatment for malignant neoplasm of prostate; Slow urinary stream Allergies Active Allergy Reactions Criticality Noted Date Comments Jerod Inhibitors Cough 12/12/2009 Sulfa Antibiotics 06/08/1999 Gi upset/diarrhea Tamsulosin Medium 01/28/2023 Lightheaded/dizzy, insomnia documented as of this encounter (statuses as of 05/28/2023) Medications Medication Sig Dispensed Refills Start Date [...] as of this encounter (statuses as of 05/28/2023) Active Problems Problem Noted Date Diagnosed Date [...] as of this encounter (statuses as of 05/28/2023) Resolved Problems Problem Noted Date Diagnosed Date [...] 10/10/2017 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 12/28/2010 01/16/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 Family history of other card iovascular diseases 07/26/2008 Overview: ICD-10 update of inactive term documented as of this encounter (statuses as of 05/28/2023) Immunizations Name Administration Dates Next Due COVID-19 [...] as of this encounter Progress Notes * Alli Page MD - 05/28/2023 2:45 PM EST [id number] PCP: LUI PARK [address] [place] [address] [place] [address] Celso Grant is a 77 year old male, who presents for f/u of his CAP history. His past notes are reviewed. Unfortunately, his PSA has jumped significantly since his visit in December 2022. He notes a slow stream, no difference since last visit. 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 Treated with androgen deprivation and external beam radiation therapy. Notes slow stream starting early 2021. Rx for tamsulosin provided Jan 2022. Lupron 3 month provided in Apr 2022 caused hot flashes and some gynecomastia. Bicalutamide started Apr 2023. PSA Results: Lab Results Component Value Date/Time PSA - [facility] 12.74 (H) 05/27/2023 02:15 PM PSA - [facility] 3.71 02/19/2023 10:21 AM PSA - [facility] 0.14 10/29/2022 10:33 AM PSA - [facility] 0.06 05/29/2020 01:32 PM PSA - [facility] 0.07 05/01/2020 08:15 AM PSA - [facility] 0.10 11/16/2019 08:42 AM PSA SCREENING 4.40 (H) 01/28/2013 08:49 AM PSA SCREENING 2.38 01/15/2011 07:01 AM PSA SCREENING 1.73 01/12/2010 10:34 AM Creatinine Results: Lab Results Component Value Date/Time CREATININE - [facility] 2.7 (H) 02/19/2023 10:21 AM CREATININE - [facility] 2.5 (H) 02/07/2023 08:57 AM CREATININE - [facility] 2.7 (H) 12/30/2022 10:03 AM CREATININE - [facility] 2.1 (H) 07/11/2020 12:15 PM CREATININE - [facility] 2.3 (H) 06/12/2020 09:55 AM CREATININE - [facility] 2.2 (H) 05/01/2020 08:15 AM CREATININE, RANDOM URINE - [facility] 43 02/19/2023 10:23 AM CREATININE, RANDOM URINE - [facility] 46 05/01/2022 10:51 AM CREATININE, RANDOM URINE - [facility] 50 03/19/2022 02:58 PM CREATININE, RANDOM URINE - [facility] 101 07/11/2020 12:17 PM CREATININE, RANDOM URINE - [facility] 103 12/02/2019 10:58 AM CREATININE, RANDOM URINE - [facility] 69 01/27/2018 07:37 AM CREATININE, RANDOM URINE - [facility] 72 01/27/2018 07:37 AM CREATININE-OUTSIDE LAB 1.55 (A) 12/24/2021 12:00 AM CREATININE-OUTSIDE LAB 1.30 06/10/2016 12:00 AM Current Outpatient Medications Medication Sig Dispense Refill ASPIRIN 81 MG PO CHEW One pill [...] MOUTH TWICE A DAY 180 Tablet 3 No current facility-administered medications for this visit. Review of patient's allergies indicates: Allergen Reactions Tamsulosin Lightheaded/dizzy, insomnia Jerod Inhibitors Cough Sulfa Antibiotics Gi upset/diarrhea Social History: Social History Tobacco Use Smoking status: Never Smokeless tobacco: Never Substance Use Topics Alcohol use: Yes Alcohol/week: 0.0 standard drinks of alcohol Comment: on occasion- not a lot, watches closely Vaping/E-Cigarette Use Vaping/E-Cigarette Use Never User Vaping/E-Cigarette Substances Vaping/E-Cigarette Devices Family History Problem Relation Age of Onset Cancer Mother age 65- brain cancer Heart Disorder Father age 73- OR Heart Disorder Uncle (Unspecified) p. uncle - OR Heart Disorder Grandfather (Paternal) due to OR Past Surgical History: Procedure Laterality Date COLONOSCOPY, DIAGNOSTIC (RECTUM) 01/13/2018 adenomatous [facility], [facility] 12/07/2009 Dilated cardiomyopathywith severe LV dysfunction;systolic hypertnesion; elevated LV pressures; mildMR; 20-30% distal LAD; 30% distal right t coronary IMPACT TOOTH REMOV PART BONY late teens wisdom teeth extraction LEFT VENTRICULAR PACING ELECTRODE, ADD-ON 09/04/2010 CS LEAD PLACEMENT WITH INITIAL DEVICE performed by SABINA ARIZA IV at [facility] NEEDLE/PUNCH BIOPSY OF PROSTATE 06/20/03 Prostate,Needle/Punch Biopsy NEEDLE/PUNCH BIOPSY OF PROSTATE 03/12/04 Prostate,Needle/Punch Biopsy NEEDLE/PUNCH BIOPSY OF PROSTATE 03-15-2013 Prostate,Needle/Punch Biopsy REMOVE TONSILS & ADENOIDS, UNDER 12 1950 T&A VASC DUPLEX AORTA, IVC, ILIAC- LMTD 01/29 Normal abd.aorta and iliac artery duplex study Past Medical History: Diagnosis Date Acute pyelonephritis Prostate cancer (HCC) 08/02/2013 Patient Active Problem List Diagnosis Code Non-ischemic [...] I51.3 Severe left ventricular systolic dysfunction I51.9 Constitutional: (-) fever and (-) chills ENT: (-) stridor Pulmonary: (-) cough Male : See HPI Musculoskeletal: (+) joint pain Neurology: (+) loss of balance Psychiatry: (-) negative: no depression or anxiety Physical Exam Nursing note reviewed. Constitutional: General: He is not in acute distress. Appearance: Normal appearance. He is not ill-appearing or toxic-appearing. Comments: Using cane HENT: Head: Normocephalic and atraumatic. Right Ear: External ear normal. Left Ear: External ear normal. Nose: Nose normal. Mouth/Throat: Mouth: Mucous membranes are moist. Eyes: Extraocular Movements: Extraocular movements intact. Cardiovascular: Pulses: Normal pulses. Pulmonary: Effort: Pulmonary effort is normal. No respiratory distress. Abdominal: Palpations: Abdomen is soft. Tenderness: There is no abdominal tenderness. Musculoskeletal: Cervical back: Normal range of motion and neck supple. Lymphadenopathy: Cervical: No cervical adenopathy. Skin: Coloration: Skin is not cyanotic or pale. Neurological: Mental Status: He is alert and oriented to person, place, and time. Motor: No weakness. Gait: Gait normal. Psychiatric: Attention and Perception: Attention normal. Mood and Affect: Mood and affect normal. Impression/Plan: 77-year-old male with prostate cancer with recurrent PSA. Patient notes poor tolerance of Lupron in the past. He is offered consideration of monotherapy withbicalutamide as an alternative. He is aware this may not be sufficient and Lupron may need to be re-initiated. Will see back in 3 months with a repeat PSA value. Will obtain a PSMA scan to see if nidus of recurrence is visible. Ideally, patient will wait until his scan is done prior to initiation of bicalutamide, but if his voiding worsens, he can start his medication right away. Above content ispersonally reviewed. Patient vocalizes good understanding of the treatment plan. Alli Page MD 8:41 AM 05/28/2023 documented in this encounter Nursing Notes * Shelley Zimmerman LPN - 05/28/2023 2:14 PM EST Chief Complaint Patient presents with Follow Up Pt presents for recurrent PSA. Taking flomax PSA Results: Lab Results Component Value Date/Time PSA - [facility] 12.74 (H) 05/27/2023 02:15 PM PSA - [facility] 3.71 02/19/2023 10:21 AM PSA - [facility] 0.14 10/29/2022 10:33 AM PSA - [facility] 0.06 05/29/2020 01:32 PM PSA - [facility] 0.07 05/01/2020 08:15 AM PSA - [facility] 0.10 11/16/2019 08:42 AM PSA SCREENING 4.40 (H) 01/28/2013 08:49 AM PSA SCREENING 2.38 01/15/2011 07:01 AM PSA SCREENING 1.73 01/12/2010 10:34 AM documented in this encounter Plan of Treatment Upcoming Encounters Date Type Department Care Team (Late st Contact Info) Description 06/04/2023 9:40 AM EST Anticoagulation Pharmacy, [facility] [address] [facility] [place] [address] [facility] [address] [place] [address] 06/20/2023 10:00 AM EST Office Visit Cardiology, [facility] [address] [facility] [place] [address] Lauro Thompson PA-C [address] [facility] [place] [address] 08/18/2023 10:00 AM EST Cardiac Studies Cardiology, [facility] [address] [facility] [place] [address] [facility] [address] [facility] [place] [address] 09/01/2023 10:45 AM EST [facility] [address] [facility] [place] [address] 09/10/2023 9:30 AM EDT Laboratory Laboratory, [facility] [address] [facility] [place] [phone] [facility] [address] [facility] [place] [address] 09/10/2023 3:45 PM EDT Office Visit Urology, [facility] [address] [place] [address] Alli Page MD [address] [facility] [address] [place] [address] 09/22/2023 11:00 AM EDT Office Visit Hematology/Oncology [facility] [address] [facility] [place] [address] Lamar Quintero MD [address] [facility] [place] [address] 09/23/2023 4:00 PM EDT Office Visit Nephrology, [facility] [address] [facility] [place] [address] Tip Bergman MD [address] [facility] [place] [address] Scheduled Orders Name Type Priority Associated Diagnoses Orde r Schedule PET CT SKULL BASE TO MID THIGH PSMA Medical Imaging Routine Prostate cancer (HCC) Rising PSA following treatment for malignant neoplasm of prostate Expected: 05/28/2023, Expires: 06/27/2024 PSA Lab Routine Prostate cancer (HCC) Rising PSA following treatment for malignant neoplasm of prostate Slow urinary stream Expected: 08/28/2023, Expires: 05/28/2024 Health Maintenance Due Date Last Done Comments [...] 12/30/2022, Additional history exists TSH 09/17/2023 09/16/2022, 2 06/2022, 06/14/2022, Additional history exists HbA1c 10/30/2023 10/29/2022, 05/0 09/2021, 11/03/2020, Additional history exists Hgb 12/24/2023 12/23/2022, 2 06/2022, 06/14/2022, Additional history exists Albumin/Creatinine Ratio 02/20/2024 [...] this encounter Visit Diagnoses Diagnosis Prostate cancer (HCC)- Primary Malignant neoplasm of prostate Rising PSA following treatment for malignant neoplasm of prostate Slow urinary stream Slowing of urinary stream documented in this encounter Advance Directives Documents on File Type Date Recorded Patient Drain Tiler Expl anation Advance Directives and Living Will 02/04/2019 ADVANCE DIRECTIVE / LIVING WILL Power of Perlite Grinder 02/04/2019 POWER OF A TTORNEY Latest Code [...] the patient have Health Care Power of Perlite Grinder? No Care Teams V Belt Coverer Relationship Specialty Start Date End Date Lui Park DO [address] [place] [address] [place] [phone] PCP - General Internal Medicine 02/10/17 documented as of this encounter
--- OUTSIDE RECORDS SUMMARY | 2023-06-22 18:23 | External Medical Summary ---
Author Name Unknown Address Unknown Organization [id number]:[facility] - [address] [place] [address] Laboratory Report Ordering Provider Test Date Status TORRI GALVAN 02/19/2023 10:21:39 Final Observation Date Value Abnormality Reference (Units ) Status BUN 02/19/2023 10:21:39 44 Above high normal 6-20 (mg/dL) Final Creatinine 02/19/2023 10:21:39 2.7 Above high normal 0.6-1.2 (mg/dL) Final Glomerular filtration rate/1.73 sq M.predicted [Volume Rate/Area] in Serum, Plasma or Blood by Creatinine-based formula (CKD-EPI) 02/19/2023 10:21:39 24 Below low normal >=60 (mL/min) Final eGFR is calculated based on the CKD-EPI 2020 equation SODIUM 02/19/2023 10:21:39 143 135-146 (m mol/L) Final Potassium 02/19/2023 10:21:39 4.2 3.5-5.1 (m mol/L) Final Cl 02/19/2023 10:21:39 105 98-107 (mm ol/L) Final CO2 02/19/2023 10:21:39 23 22-32 (mmo l/L) Final Anion gap 02/19/2023 10:21:39 15 7-15 (mmol /L) Final Glucose 02/19/2023 10:21:39 114 70-120 (mg /dL) Final Calcium 02/19/2023 10:21:39 9.1 8.4-10.2 ( mg/dL) Final Albumin 02/19/2023 10:21:39 4.4 3.8-5.0 (g /dL) Final Phosphate 02/19/2023 10:21:39 2.9 2.5-4.8 (m g/dL) Final Performing Location [facility] - [address] [place] [address]
--- OUTSIDE RECORDS SUMMARY | 2023-06-22 18:23 | External Medical Summary ---
Author Name Unknown Address Unknown Organization [id number]:[facility] [place] [facility] - [address] [place] [address] Laboratory Report Ordering Provider Test Date Status YANN SCHWARZ 02/06/2023 10:30:53 Final Therapeutic ranges for non-o perative patients:
Prophylaxsis/treatment of DVT: (Range:2.0-3.0)
Treatment of pulmonary embolism:(Range:2.0-3.0)
Prevention of systemic embolism from:
-tissue heart valves
-acute myocardial infarction
-valvular heart disease
-atrial fibrillation
(Range: 2.0-3.0)
Mechanical prosthetic valves: (Range: 2.5-3.5) Observation Date Value Abnormality Reference (Units ) Status INR in Capillary blood by Coagulation assay 02/06/2023 10:30:53 1.3 (INR) Final Performing Location [facility] [place] [facility] - [address] [place] [address]
--- OUTSIDE RECORDS SUMMARY | 2023-06-22 18:23 | External Medical Summary ---
Author Name Unknown Address Unknown Organization [id number]:[facility] [place] [address] [place] [address] Laboratory Report Ordering Provider Test Date Status TORRI GALVAN 02/19/2023 10:23:51 Final Normal: <30 mg/g creatinine< br/>High: 30-300 mg/g creatinine
Very High: >300 mg/g creatinine
Nephrotic: >2200 mg/g creatinine Observation Date Value Abnormality Reference (Units ) Status Albumin, Urine 02/19/2023 10:23:51 <1.20 (mg/dL) Final Creatinine, Urine 02/19/2023 10:23:51 43 (mg/dL) Final Albumin/Creatinine [Mass Ratio] in Urine 02/19/2023 10:23:51 <28 <30 (mg/g Creat) Final Performing Location [facility] [place] [address] [place] [address]
--- OUTSIDE RECORDS SUMMARY | 2023-06-22 18:23 | External Medical Summary ---
Author Name Unknown Address Unknown Organization K0G:[facility] - [address] [place] [id number] Laboratory Report Ordering Provider Test Date Status YANN SCHWARZ 03/05/2023 09:59:50 Final Therapeutic ranges for non-o perative patients:
Prophylaxsis/treatment of DVT: (Range:2.0-3.0)
Treatment of pulmonary embolism:(Range:2.0-3.0)
Prevention of systemic embolism from:
-tissue heart valves
-acute myocardial infarction
-valvular heart disease
-atrial fibrillation
(Range: 2.0-3.0)
Mechanical prosthetic valves: (Range: 2.5-3.5) Observation Date Value Abnormality Reference (Units ) Status INR in Capillary blood by Coagulation assay 03/05/2023 09:59:50 1.9 (INR) Final Performing Location [facility] - [address] [place] [address]
--- OUTSIDE RECORDS SUMMARY | 2023-06-22 18:23 | External Medical Summary | Summary of Care ---
Author Name Unknown Organization [facility] Address [address] [facility] [address] Phone [phone] Care Team Providers Care Sales Representative Facility Services Name Role Phone Ioana Son Primary Care Provider Reason for Visit * Reason Comments Chronic Kidney Disease (CKD) Encounter Details Date Type Department Care Team Description 02/24/2023 Office Visit Nephrology, Martinez Moore [address] [place] [address] Tip Bergman MD [address] [place] [address] Kidney disease, chronic, stage IV (GFR 15-29 ml/min) ([facility])*; Heart failure, systolic, chronic, etiology unknown ([facility]) Allergies Active Allergy Reactions Severity Noted Date Comments Jerod Inhibitors Cough 12/12/2009 Sulfa Antibiotics 06/08/1999 Gi upset/diarrhea Tamsulosin Medium 01/28/2023 Lightheaded/dizzy, insomnia documented as of this encounter (statuses as of 02/24/2023) Medications Medication Sig Dispensed Refills Start Date [...] as of this encounter (statuses as of 02/24/2023) Active Problems Problem Noted Date Atypical atrial [...] as of this encounter (statuses as of 02/24/2023) Resolved Problems Problem Noted Date Resolved Date [...] 10/10/2017 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 12/28/2010 01/16/2017 terminal carman current use of 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 therapy 0 12/28/2010 10/27/2020 Overview: ICD-10 update of inactive term Automatic implantable cardioverter-defibrillator in situ 09/14/2010 06/12/2017 SYSTOLIC HYPERTENSION 12/13/2009 06/12/2017 FAMILY HX,CARDIOVASCULAR DISEASE 07/26/2008 02/10/2017 ADVANCE DIRECTIVE INFORMATION 01/13/2006 Overview: Pt took booklet. Family history of other cardiovascular diseases 07/26/2008 Overview: ICD-10 update of inactive term documented as of this encounter (statuses as of 02/24/2023) Immunizations Name Administration Dates Next Due COVID-19 mRNA, LNP-s, No Pre serve, 2-Dose Series (Moderna) 09/28/2020,08/31/2020 Covid-19 Mrna, Lnp-s, No Preserve, Booster (Mode rna) 05/22/2021 Pneumococcal Conjugate Vacc, 13 Valent (Prevnar) 07/07/2015 Pneumococcal Polysaccharide PPV23 (Pneumovax) Seasonal Influenza, Split, IIV3, With Preserve, Inj 07/16/2012 TD, Preservative Free 12/11/2018 TDAP (age 10 and older)(Boostrix) 06/30/2010 TDAP (age 11 and older)(Adacel) 07/26/2008 Zoster Vaccine Recombinant (Shingrix) 05/09/2021 ,02/05/2021 documented as of this encounter Social History Tobacco Use Types Packs/Day Years Used Date Smoking Tobacco: Never Smokeless Tobacco: Never Tobacco Cessation:Counseling Given: Not Answered Alcohol Use Standard Drinks/Week Comments Yes 0 [...] Sign Reading Time Taken Comments Blood Pressure 138/78 02/24/2023 1:55 PM EDT Pulse 78 02/24/2023 1:55 PM EDT Temperature 36 C (96.8 F) 02/24/2023 1:55 PM EDT Respiratory Rate 22 02/24/2023 1:55 PM EDT Oxygen Saturation 94% 02/24/2023 1:55 PM EDT Inhaled Oxygen Concentration - - Weight 111.1 kg (245 lb) 02/24/2023 1:55 PM EDT Height - - Body Mass Index 33.23 02/07/2023 8:29 AM EDT documented in this encounter Progress Notes * Tip Bergman MD - 02/24/2023 1:56 PM EDT Background;----77 year old male presents for ckd stage 4 with no proteinuria with right kidney 12.4cm and left kidney 11cm thought to be from hypertension. No diabetes. No tobacco. No myeloma. Avoidsnsaids. Hx of mgus. Stable m-spike. Follows with Dr. Quintero. 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 Follows with Dr. Hall. Hx of prostate cancer diagnosed approx 2009; finished XRT for high PSA late September 2019. History of stones: No Family history of CKD or ESRD: No NSAID use: No Herbals/supplements: No Since last visit --- Admitted to [facility] twice, within the last few months with acute on chronic heart failure with recurrent reduced ejection fraction. EF 30% via December 05, 2022 echocardiography which also revealed a moderate size apical thrombus + Atypical atrial flutter with rapid ventricular response. Patient did not feel torsemide at 100 mg/day was as effective as furosemide and he is now on Lasix 80 twice daily and potassium chloride 40 twice daily. Not felt to be a candidate for ACEI/ARB/Entresto/Aldactone/Inspra. He lives alone. Feels his breathing is stable at this point Past Medical History: Diagnosis Date Acute pyelonephritis [...] 1 Tablet before bedtime. 180 Tablet 3 Amiodarone HCl 200 MG Oral Tablet (Cordarone) TAKE 1 TABLET BY MOUTH TWICE A DAY 180 Tablet 3 Levothyroxine Sodium 50 MCG Oral Tablet (Levoxyl) Take by mouth 1 Tablet in the morning. (30 min prior to breakfast or other meds). 90 Tablet 3 Potassium Chloride Monse ER 20 MEQ Oral Tablet Extended Release Take 2 Tablets by mouth in the morning and 2 Tablets before bedtime. 360 Tablet 3 Warfarin Sodium 6 MG Oral Tablet (Coumadin) 6 MG ORALLY DAILY AT 4PM Furosemide 40 MG Oral Tablet (Lasix) Take 2 Tablets by mouth 2 times a day. Allopurinol 100 MG Oral Tablet (Zyloprim) Take 2 Tablets by mouth in the morning. Tamsulosin HCl 0.4 MG Oral Capsule (Flomax) Take 1 Capsule by mouth in the morning. 90 Capsule 3 No current facility-administered medications for this visit. 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 Social Needs Financial resource strain: Not on file Food insecurity Worry: Never true Inability: Never true Transportation needs Medical: Not on file Non-medical: Not on file Tobacco Use Smoking status: Never Smoker Smokeless tobacco: Never Used Substance and Sexual Activity Alcohol use: Yes Alcohol/week: 0.0 standard drinks Comment: on occasion- not a lot, watches closely Drug use: No Sexual activity: Yes Lifestyle Physical activity Days per week: Not on file Minutes per session: Not on file Stress: Not on file Relationships Social connections Talks on phone: Not on file Gets together: Not on file Attends christianity service: Not on file Active member of club or organization: Not on file Attends meetings of clubs or organizations: Not on file Relationship status: Not on file Intimate partner violence Fear of current or ex partner: Not on file Emotionally abused: Not on file Physically abused: Not on file Forced sexual activity: Not on file Other Topics Concern Not on file Social History Narrative Not on file Vaping/E-Cigarette Use Vaping/E-Cigarette Use Never User Vaping/E-Cigarette Substances Vaping/E-Cigarette Devices Family History Problem Relation Age of Onset Cancer Mother age 65- brain cancer Heart Disorder Father age 73- [place] Heart Disorder Uncle (Unspecified) p. uncle - [place] Heart Disorder Grandfather (Paternal) due to [place] Family Status Relation Status Mo (Not Specified) Fa (Not Specified) UNCLE (Not Specified) PGFA (Not Specified) PHYSICAL EXAMINATION: BP Readings from Last 6 Encounters: 02/24/23 138/78 02/07/23 120/70 01/03/23 110/68 12/23/22 120/82 11/21/22 126/70 10/29/22 128/64 Wt Readings from Last 6 Encounters: 02/24/23 111.1 kg (245 lb) 02/07/23 113.6 kg (250 lb 6.4 oz) 01/08/23 113.5 kg (250 lb 3.2 oz) 01/03/23 113.7 kg (250 lb 12 oz) 12/23/22 110.1 kg (242 lb 12.8 oz) 11/21/22 115.5 kg (254 lb 11.2 oz) Pulse Readings from Last 6 Encounters: 02/24/23 78 02/07/23 82 01/03/23 76 12/23/22 78 11/21/22 80 10/29/22 68 NAD, oriented x 3, ambulatory w/o asst Normocephalic, atraumatic, eomi nonicteric sclerae MMM Supple neck w/o lad RRR w/o g/r; SM; trace BLE edema CTAB w/ good air mvt NT abd, +BS, soft No cyanosis or clubbing No rash No tremor, focal or global weakness; fluent speech, good hx LABS: NEPH-FLOW Latest Ref Rng & Units 09/14/2019 10/06/2019 11/16/2019 Bun 6 - 20 mg/dL 29 (H) 35 (H) Cr 0.6 - 1.2 mg/dL 1.6 (H) 1.9 (H) eGFR >60 mL/min eGFR >60 42.1 (L) 34.2 (L) K 3.5 - 5.1 mmol/L 4.5 4.3 Hb 14.0 - 16.8 g/dL 11.3 (L) Microalb/cr ratio <30 mg/g creat NEPH-FLOW Latest Ref Rng & Units 12/02/2019 12/28/2019 01/20/2020 Bun 6 - 20 mg/dL 28 (H) 28 (H) Cr 0.6 - 1.2 mg/dL 1.6 (H) 1.6 (H) eGFR >60 mL/min eGFR >60 42.5 (L) 42.5 (L) K 3.5 - 5.1 mmol/L 4.1 4.4 Hb 14.0 - 16.8 g/dL 10.7 (L) Microalb/cr ratio <30 mg/g creat <12 NEPH-FLOW Latest Ref Rng & Units 02/18/2020 02/25/2020 03/24/2020 Bun 6 - 20 mg/dL 40 (H) 36 (H) 26 (H) Cr 0.6 - 1.2 mg/dL 2.1 (H) 2.0 (H) 1.8 (H) eGFR >60 mL/min eGFR >60 29.9 (L) 31.1 (L) 36.8 (L) K 3.5 - 5.1 mmol/L 3.9 4.5 4.5 Hb 14.0 - 16.8 g/dL Microalb/cr ratio <30 mg/g creat NEPH-FLOW Latest Ref Rng & Units 04/07/2020 04/11/2020 05/01/2020 Bun 6 - 20 mg/dL 45 (H) 45 (H) 44 (H) Cr 0.6 - 1.2 mg/dL 2.2 (H) 2.4 (H) 2.2 (H) eGFR >60 mL/min eGFR >60 28.1 (L) 25.2 (L) 28.9 (L) K 3.5 - 5.1 mmol/L 4.7 4.2 4.2 Hb 14.0 - 16.8 g/dL 11.2 (L) Microalb/cr ratio <30 mg/g creat Nuclear Stress Test: 02/10/2020: The left ventricle appears be dilated both at rest and post stress. There is global hypokinesis. The estimated left ventricular ejection fraction is 52%. Lexiscan nuclear cardiac stress test negative for ischemia. Echocardiogram: 02/10/2020: Rhythm during study appears ventricular paced. The left ventricular cavity size is mildly enlarged. The LV wall thickness is moderately increased (concentric). Calculated LV ejection Fraction = 45-50% (bi-plane method of discs). There is focal thickening of the posterior mitral valve leaflet(s). Moderate mitral regurgitation is present. Compared to previous study dated 06/10/2019, LVEF is slightly reduced. NEPH-FLOW Latest Ref Rng & Units 07/11/2020 08/16/2020 09/29/2020 Bun 6 - 20 mg/dL 27 (H) 44 (H) 63 (H) Cr 0.6 - 1.2 mg/dL 2.1 (H) 2.5 (H) 3.3 (H) eGFR >=60.0 mL/min 24.3 (L) 17.6 (L) eGFR >60 30.8 (L) K 3.5 - 5.1 mmol/L 4.0 4.6 4.8 Hb 14.0 - 16.8 g/dL 9.6 (L) 11.3 (L) Pro/Cr ratio <150 mg/g 54 Microalb/cr ratio <30 mg/g creat <12 NEPH-FLOW Latest Ref Rng & Units 10/09/2020 11/03/2020 11/17/2020 Bun 6 - 20 mg/dL 47 (H) 56 (H) 28 (H) Cr 0.6 - 1.2 mg/dL 2.4 (H) 2.7 (H) 2.1 (H) eGFR >=60.0 mL/min 25.6 (L) 22.1 (L) 29.2 (L) eGFR >60 K 3.5 - 5.1 mmol/L 4.3 4.4 4.4 Hb 14.0 - 16.8 g/dL Pro/Cr ratio <150 mg/g Microalb/cr ratio <30 mg/g creat NEPH-FLOW Latest Ref Rng & Units 01/04/2021 01/18/2021 01/30/2021 Bun 6 - 20 mg/dL 22 (H) 35 (H) Cr 0.6 - 1.2 mg/dL 1.8 (H) 2.8 (H) eGFR >=60.0 mL/min 35.1 (L) 21.1 (L) eGFR >60 K 3.5 - 5.1 mmol/L 3.7 4.1 Hb 14.0 - 16.8 g/dL 11.4 (L) 11.2 (L) Pro/Cr ratio <150 mg/g Microalb/cr ratio <30 mg/g creat NEPH-FLOW Latest Ref Rng & Units 02/05/2021 04/09/2021 06/04/2021 Bun 6 - 20 mg/dL 27 (H) 27 (H) 32 (H) Cr 0.6 - 1.2 mg/dL 2.2 (H) 2.0 (H) 2.1 (H) eGFR >=60 mL/min 28.5 (L) 31.5 (L) 30 (L) eGFR >60 K 3.5 - 5.1 mmol/L 4.5 4.1 3.9 Hb 14.0 - 16.8 g/dL 13.6 (L) Pro/Cr ratio <150 mg/g NEPH-FLOW Latest Ref Rng & Units 04/09/2021 06/04/2021 08/06/2021 Bun 6 - 20 mg/dL 27 (H) 32 (H) 39 (H) Cr 0.6 - 1.2 mg/dL 2.0 (H) 2.1 (H) 2.4 (H) eGFR >=60 mL/min 31.5 (L) 30 (L) 27 (L) eGFR >60 K 3.5 - 5.1 mmol/L 4.1 3.9 3.6 Hb 14.0 - 16.8 g/dL 13.6 (L) 14.6 Pro/Cr ratio <150 mg/g Microalb/cr ratio <30 mg/g creat NEPH-FLOW Latest Ref Rng & Units 01/03/2022 01/29/2022 02/05/2022 Bun 6 - 20 mg/dL 24 (H) 112 (H) 33 (H) Cr 0.6 - 1.2 mg/dL 1.6 (H) 4.7 (H) 2.0 (H) eGFR >=60 mL/min 43 (L) 12 (L) 34 (L) eGFR >60 K 3.5 - 5.1 mmol/L 4.5 2.5 (L) 5.1 Hb 14.0 - 16.8 g/dL 15.1 Pro/Cr ratio <150 mg/g Microalb/cr ratio <30 mg/g creat ' Latest Reference Range & Units 12/30/22 10:03 02/07/23 08:57 02/19/23 10:21 Sodium 135 - 146 mmol/L 143 145 143 Potassium 3.5 - 5.1 mmol/L 4.5 4.8 4.2 Chloride 98 - 107 mmol/L 104 107 105 CO2 22 - 32 mmol/L 25 25 23 BUN 6 - 20 mg/dL 41 (H) 42 (H) 44 (H) Creatinine 0.6 - 1.2 mg/dL 2.7 (H) 2.5 (H) 2.7 (H) Estimated Glomerular Filtration Rate >=60 mL/min 24 (L) 25 (L) 24 (L) Anion Gap 7 - 15 mmol/L 14 13 15 Glucose 70 - 120 mg/dL 123 (H) 146 (H) 114 Calcium 8.4 - 10.2 mg/dL 9.1 9.1 9.1 Phosphorus 2.5 - 4.8 mg/dL 2.9 ASSESSMENT AND PLAN: Stage 3b chronic kidney disease (HCC) (Primary) CKD stage IIIB at baseline with a creatinine 1.7 as of December 2021-multifactorial cause. However he had acute renal failure with severe hypokalemia in January 2022 as result of addition of metolazone. He should not be on metolazone unless we are completely maxed out on the loop diuretics. Currently on Lasix 80 twice daily his renal function has declined somewhat in the recent months which is not unexpected given issues with LV thrombus even lower ejection fraction AFib and hospital admission for CHF Labs done 5 days ago was reviewed and showed a creatinine of 2.7 and a GFR of 24. His risk of ESRD is high Heart failure, systolic, chronic, etiology unknown (HCC) CHF admission x2 with AFib as well as LV thrombus. He is now back on Coumadin which he was on in the past but was stopped after GI bleeding. Now on Lasix 80 twice daily which is a higher dose than year ago MGUS (monoclonal gammopathy of unknown significance) He sees hematology Dr. Quintero. Follow Up: Return in about 6 months (around 08/27/2023). Tip Bergman MD documented in this encounter Nursing Notes * Brittney Cobb RN - 02/24/2023 1:55 PM EDT Follow up appointment today. Recently hospitalized x 2 for CHF. States his swelling is better controlled. documented in this encounter Plan of Treatment Upcoming Encounters Date Type Specialty Care Team Description 03/05/2023 Anticoagulation Pharmacy Kimberly Mcdaniel [facility] [place] [address] [facility] [place] [address] 05/02/2023 Office Visit Family Medicine Ioana Son[address] [place] [address] 05/28/2023 Office Visit Urology Alli Page MD [address] [place] [address] 06/20/2023 Office Visit Cardiology Lauro Thompson PA-C [address] [place] [address] 08/18/2023 Cardiac Studies Cardiology Chino Rivas [facility] [place] [address] 09/10/2023 Laboratory Laboratory [facility] [address] [facility] [place] [address] 09/22/2023 Office Visit Hematology Oncology Lamar Quintero MD [address] [facility] [place] [address] 09/23/2023 Office Visit Nephrology Tip Bergman MD [address] [facility] [place] [address] Health Maintenance Due Date Last Done Comments Hepatitis C Screening 1963 Depression, Most Recent Score >= 10 (will fire each visit until score < 10) 06/14/2020 06/13/2020 COLONOSCOPY-EVERY 3 YRS AGES 18-100 01/13/2021 01/13/2018 COVID-19 Vaccine (4 - Moderna series) 07/17/2021 05/22/2021, 09/28/2020, 08/31/2020 Influenza Vaccine (FLU shot) (#1) 2023 07/16/2012, 06/22/2003 Nephrology Referral 03/19/2023 03/19/2022 GFR 08/22/2023 02/19/2023, 0806/2022, 12/30/2022, Additional history exists TSH 09/17/2023 09/16/2022, 08/01, 06/14/2022, Additional history exists HbA1c 10/30/2023 10/29/2022, 05/0 09/2021, 11/03/2020, Additional history exists Hgb 12/24/2023 12/23/2022, 08/01, 06/14/2022, Additional history exists Albumin/Creatinine Ratio 02/20/2024 023, 05/01/2022, 07/11/2020, Additional history exists PTH 02/20/2024 02/19/2023, 03/01, 10/31/2021, Additional history exists Phosphate 02/20/2024 02/19/2023, 03/01, 10/31/2021, Additional history exists DTaP,Tdap,and Td Vaccines (4 - Td or [...] as of this encounter Visit Diagnoses Diagnosis Kidney disease, chronic, stage IV (GFR 15-29 ml/min) (HCC)- Primary Chronic kidney disease, Stage IV (severe) Heart failure, systolic, chronic, etiology unknown (HCC) Chronic systolic heart failure documented in this encounter Advance Directives Documents on File Type Date Recorded Patient Cattery Operator Expl anation Advance Directives and Living Will 02/04/2019 ADVANCE DIRECTIVE / LIVING WILL Power of Foreclosure Paralegal 02/04/2019 POWER OF A TTORNEY Latest Code [...] the patient have Health Care Power of Foreclosure Paralegal? No Care Teams Sales Representative Facility Services Relationship Specialty Start Date End Date Ioana Son, [address] [place] [address] PCP - General Internal Medicine 02/10/17 documented as of this encounter
--- OUTSIDE RECORDS SUMMARY | 2023-06-22 18:23 | External Medical Summary | Summary of Care ---
Author Name Unknown Organization [facility] Address [address] [facility] [address] Phone [phone] Care Team Providers Care Semiconductor Assembler Name Role Phone SonIoana wall Primary Care Provider Reason for Visit * Reason Comments Dosage Adjustment In Person (Anticoag Cl inic) Encounter Details Date Type Department Care Team Description 02/19/2023 Anticoagulation Pharmacy, [facility] [address] [facility] [place] [address] [facility] [address] [facility] [place] [address] Apical mural thrombus* Allergies Active Allergy Reactions Severity Noted Date Comments Jerod Inhibitors Cough 12/12/2009 Sulfa Antibiotics 06/08/1999 Gi upset/diarrhea Tamsulosin Medium 01/28/2023 Lightheaded/dizzy, insomnia documented as of this encounter (statuses as of 02/19/2023) Medications Medication Sig Dispensed Refills Start Date [...] as of this encounter (statuses as of 02/19/2023) Active Problems Problem Noted Date Atypical atrial [...] protocol Congestive cardiomyopathy 07/11/2020 Paroxysmal atrial fibrillation 1 Ventricular fibrillation 07/11/2020 Sustained VT (ventricular tachycardia) [...] as of this encounter (statuses as of 02/19/2023) Resolved Problems Problem Noted Date Resolved Date [...] 01/17/2012 10/10/2017 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 12/28/2010 01/16/2017 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 Family history of other cardiovascular diseases 07/26/2008 Overview: ICD-10 update of inactive term documented as of this encounter (statuses as of 02/19/2023) Immunizations Name Administration Dates Next Due COVID-19 [...] of this encounter Progress Notes * Agnes Wheeler, [facility] - 02/19/2023 10:37 AM EDT I agree with documented plan of care. Agnes Wheeler, Pharm D, BCACP Clinical Pharmacist 02/19/2023, 10:37 AM documented in this encounter Plan of Treatment Upcoming Encounters Date Type Specialty Care Team Description 02/24/2023 Office Visit Nephrology Tip Bergman MD [address] [place] [id number] 03/05/2023 [facility] [address] 05/02/2023 Office Visit Family Medicine Ioana Son[address] [place] [address] 05/28/2023 Office Visit Urology Alli Page MD [address] [place] [address] 06/20/2023 Office Visit Cardiology Lauro Thompson PA-C [address] [facility] [place] [address] 08/18/2023 Cardiac Studies Cardiology Rob [facility] [address] [facility] [place] [address] 09/10/2023 Laboratory Laboratory [facility] [address] [facility] [place] [address] 09/22/2023 Office Visit Hematology Oncology Lamar Quintero MD [address] [place] [address] Health Maintenance Due Date Last Done Comments Hepatitis C Screening 1963 Depression, Most Recent Score >= 10 (will fire each visit until score < 10) 06/14/2020 06/13/2020 COLONOSCOPY-EVERY 3 YRS AGES 18-100 01/13/2021 01/13/2018 COVID-19 Vaccine (4 - Moderna series) 07/17/2021 05/22/2021, 09/28/2020, 08/31/2020 Influenza Vaccine (FLU shot) (#1) 2023 07/16/2012, 06/22/2003 Nephrology Referral 03/19/2023 03/19/2022 PTH 03/19/2023 03/19/2022, 05/0 09/2021, 01/30/2021, Additional history exists Phosphate 03/19/2023 03/19/2022, 05/0 09/2021, 01/30/2021, Additional history exists Albumin/Creatinine Ratio 05/01/2023 022, 07/11/2020, 12/02/2019, Additional history exists GFR 08/10/2023 02/07/2023, 07/0 08/2022, 12/23/2022, Additional history exists TSH 09/17/2023 09/16/2022, 08/01, 06/14/2022, Additional history exists HbA1c 10/30/2023 10/29/2022, 05/0 09/2021, 11/03/2020, Additional history exists Hgb 12/24/2023 12/23/2022, 08/01, 06/14/2022, Additional history exists DTaP,Tdap,and Td Vaccines (4 [...] Diagnosis Comments INR FINGERSTICK, POINT OF CARE DANIEL 02/19/2023 9:59 AM EDT documented in this encounter Results * INR FINGERSTICK, POINT OF CARE (02/19/2023 9:59 AM EDT) Fingerstick INR 1.6 INR 10:06 AM EDT [facility] Blood 02/19/2023 9:59 AM EDT 02/19/2023 10:06 AM EDT Narrative [facility] - 02/19/2023 10:06 AM EDT Therapeutic ranges for non-operative patients: Prophylaxsis/treatment of DVT: (Range:2.0-3.0) Treatment of pulmonary embolism:(Range:2.0-3.0) Prevention of systemic embolism from: -tissue heart valves -acute myocardial infarction -valvular heart disease -atrial fibrillation (Range: 2.0-3.0) Mechanical prosthetic valves: (Range: 2.5-3.5) [facility] POINT OF CARE TEST DOCKED DEVICE UNSOLICITED RESULTS [facility] [address] [facility] [place] [address] documented in this encounter Visit Diagnoses Diagnosis Apical mural thrombus- Primary Acute myocardial infarction of other anterior wall, episode of care unspecified documented in this encounter Advance Directives Documents on File Type Date Recorded Patient Rehabilitation Program Manager Expl anation Advance Directives and Living Will 02/04/2019 ADVANCE DIRECTIVE / LIVING WILL Power of Carpenter Helper Hardwood Flooring 02/04/2019 POWER OF A TTORNEY Latest Code [...] the patient have Health Care Power of Carpenter Helper Hardwood Flooring? No Care Teams Semiconductor Assembler Relationship Specialty Start Date End Date Ioana Son, [address] [place] [address] PCP - General Internal Medicine 02/10/17 documented as of this encounter
--- OUTSIDE RECORDS SUMMARY | 2023-06-22 18:23 | External Medical Summary ---
Author Name Unknown Address Unknown Organization [id number]:[facility] [place] [address] [facility] [place] [place] [address] Laboratory Report Ordering Provider Test Date Status TORRI GALVAN 02/19/2023 10:21:39 Final Observation Date Value Abnormality Reference (Units) Status Hepatitis B virus surface Ab [Units/volume] in Serum or Plasma by Immunoassay 02/19/2023 10:21:39 <3.5 (mIU/mL) Final Hepatitis B virus surface Ab [Presence] in Serum by Immunoassay 02/19/2023 10:21:39 Negative Final HEPATITIS B SURFACE ANTIBODY, INTERPRETATION 02/19/2023 10:21:39 NOT immune to Hepatitis B Virus Final POSITIVE: >=11.5 mIU/mL
INDETERMINATE: 8.5-<11.5 mIU/mL
NEGATIVE: <8.5 mIU/mL Performing Location [facility] - [facility] [address] [place] [address]
--- OUTSIDE RECORDS SUMMARY | 2023-06-22 18:23 | External Medical Summary | Summary of Care ---
Author Name Unknown Organization [facility] Address [address] [facility] [place] [address] Phone [phone] Care Team Providers Care Application Development Intern Name Role Phone SonIoana wall Primary Care Provider [phone] Reason for Visit * Reason Comments Re-Check Encounter Details Date Type Department Care Team Description 02/07/2023 Office Visit Family Medicine [address] [place] [address] Mira Jordan MD [address] [place] [address] [place] [address] HFrEF (heart failure with reduced ejection fraction) ([facility])*; Paroxysmal atrial fibrillation (HCC); 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 ([facility]) Allergies Active Allergy Reactions Severity Noted Date Comments Jerod Inhibitors Cough 12/12/2009 Sulfa Antibiotics 06/08/1999 Gi upset/diarrhea Tamsulosin Medium 01/28/2023 Lightheaded/dizzy, insomnia documented as of this encounter (statuses as of 02/07/2023) Medications Medication Sig Dispensed Refills Start Date [...] as of this encounter (statuses as of 02/07/2023) Active Problems Problem Noted Date Atypical atrial [...] as of this encounter (statuses as of 02/07/2023) Resolved Problems Problem Noted Date Resolved Date [...] 01/17/2012 10/10/2017 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 12/28/2010 01/16/2017 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 Family history of other cardiovascular diseases 07/26/2008 Overview: ICD-10 update of inactive term documented as of this encounter (statuses as of 02/07/2023) Immunizations Name Administration Dates Next Due COVID-19 [...] Never Smokeless Tobacco: Never Tobacco Cessation:Counseling Given: No Alcohol Use Standard Drinks/Week Comments Yes 0 [...] Sign Reading Time Taken Comments Blood Pressure 120/70 02/07/2023 8:29 AM EDT Pulse 82 02/07/2023 8:29 AM EDT Temperature 35.8 C (96.4 F) 02/07/2023 8:29 AM ED T Respiratory Rate 16 02/07/2023 8:29 AM EDT Oxygen Saturation 97% 02/07/2023 8:29 AM EDT Inhaled Oxygen Concentration - - Weight 113.6 kg (250 lb 6.4 oz) 02/07/2023 8:29 AM EDT Height 182.9 cm (6') 02/07/2023 8:29 AM EDT Body Mass Index 33.96 02/07/2023 8:29 AM EDT documented in this encounter Progress Notes * Mira Jordan MD - 02/07/2023 8:35 AM EDT Subjective: HPI: Celso Grant is a 77 year old male with hx of HFrEF s/p ICD (BiV), Afib on coumadin, HTN, CKD III-IV, Gout, Prediabetes, prostate ca s/p radiation and lupron, MGUS with anemia, Hx of GI bleed, Hypothyroidism, hx of LV apical thrombus seen for Pt was recently admitted to the hospital for Acute CHF and LV thrombus HFrEF: - currently on Lasix 80mg BID and KCL 40 meq BID - denied any worsening leg swelling, SOB or CP - denied any dizziness or light headedness - pt's weight has been stable Afib on coumadin and LV thrombus: - on coumadin - last INR check was subtherapeutic ----took extra dose yesterday night - sched to get repeat INR via MTM Patient Active Problem List Diagnosis Code Non-ischemic [...] (RECTUM) 01/13/2018 adenomatous polyp, diverticulosis, repeat 3 yrs/[facility] COMBINED RT & LEFT HEART CATHETERS 12/07/2009 Dilated cardiomyopathywith severe LV dysfunction;systolic hypertnesion; elevated LV pressures; mildMR; 20-30% distal LAD; 30% distal right t coronary IMPACT TOOTH REMOV PART BONY late teens wisdom teeth extraction LEFT VENTRICULAR PACING ELECTRODE, ADD-ON 09/04/2010 CS LEAD PLACEMENT WITH INITIAL DEVICE performed by SABINA ARIZA IV at [facility] NEEDLE/PUNCH BIOPSY OF PROSTATE 06/20/03 Prostate,Needle/Punch Biopsy [...] brain cancer Heart Disorder Father age 73- [place] Heart Disorder Uncle (Unspecified) p. uncle - [place] Heart Disorder Grandfather (Paternal) due to [place] Social History Tobacco Use Smoking status: Never Smokeless tobacco: Never Substance Use Topics Alcohol use: Yes Alcohol/week: 0.0 standard drinks Comment: on occasion- not a lot, watches closely Vaping/E-Cigarette Use Vaping/E-Cigarette Use Never User Vaping/E-Cigarette Substances Vaping/E-Cigarette Devices RECENT LABS: Results for orders placed or performed in visit on 02/06/23 INR FINGERSTICK, POINT OF CARE Result Value Ref Range Fingerstick INR 1.3 INR *Note: Due to a large number of results and/or encounters for the requested time period, some results have not been displayed. A complete set of results can be found in Results Review. ROS: -Per HPI OBJECTIVE: BP 120/70 | Pulse 82 | Temp 35.8 C (96.4 F) (Tympanic) | Resp 16 | Ht 1.829 m (6') | Wt 113.6 kg (250 lb 6.4 oz) | SpO2 97% | BMI 33.96 kg/m | BSA 2.4 m PHYSICAL EXAM: Vitals are reviewed General:. NAD, well developed HEENT:. Normal Conjunctiva, EOMI Cardiac:.systolic murmur, Normal S1, S2 Lungs:. CTA, no wheezing or crackles MSK:b/l LE mild pitting edema Psych:. AAOx3, normal affect ASSESSMENT/PLAN: HFrEF (heart failure with reduced ejection fraction) (HCC) (Primary) - pt is euvolemic on exam - VSS - BMP today to check the Cr - BASIC METABOLIC PANEL Paroxysmal atrial fibrillation (HCC) - HR wnl - VSS 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 (HCC) - BASIC METABOLIC PANEL Mira Jordan MD Family medicine, [place] [address] documented in this encounter Nursing Notes * Melvina Marcum LPN - 02/07/2023 8:29 AM EDT Pt here for check up No concerns noted documented in this encounter Plan of Treatment Upcoming Encounters Date Type Specialty Care Team Description 02/19/2023 [facility]ticoagulation Pharm[facility] [place] [address] 02/24/2023 Office Visit Nephrology Tip Bergman MD 200 [facility] [place] [address] 05/02/2023 Office Visit Family Medicine Ioana Son[address] [place] [address] 05/28/2023 Office Visit Urology Alli Page MD [address] [address] [place] [address] 06/20/2023 Office Visit Cardiology Lauro Thompson PA-C [address] [place] [address] 08/18/2023 Cardiac Studies Cardiology Rob, Pacer [facility] [address] [place] [address] 09/10/2023 Laboratory Laboratory Mcdaniel, [facility] [place] [address] [place] [address] 09/22/2023 Office Visit Hematology Oncology Lamar Quintero MD [address] 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 (HCC) HFrEF (heart failure with reduced ejection fraction) (HCC) 02/07/2023 8:57 AM EDT Health Maintenance Due Date Last Done Comments [...] 022, 07/11/2020, 12/02/2019, Additional history exists GFR 07/02/2023 12/30/2022, 11/29, 12/09/2022, Additional history exists TSH 09/17/2023 09/16/2022, 08/01, [...] as of this encounter Visit Diagnoses Diagnosis HFrEF (heart failure with reduced ejection fraction) (HCC)- Primary Paroxysmal atrial fibrillation (HCC) Atrial fibrillation 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 No Care Teams Application Development Intern Relationship Specialty Start Date End Date Ioana Son, [address] [place] [phone] PCP - General Internal Medicine 02/10/17 documented as of this encounter"
--- OUTSIDE RECORDS SUMMARY | 2023-06-22 18:23 | External Medical Summary | Summary of Care ---
Author Name Unknown Organization [facility] Address [address] [facility] [place] [address] Phone [phone] Care Team Providers Care Alligator Trapper Name Role Phone SonIoana wall Primary Care Provider [phone] Encounter Details Date Type Department Care Team Description 02/20/2023 Telephone Urology Wes Howard [address] [place] [address] Alli Page MD [address] [facility] [place] [address] [place] [address] Allergies Active Allergy Reactions Severity Noted Date Comments Jerod Inhibitors Cough 12/12/2009 Sulfa Antibiotics 06/08/1999 Gi upset/diarrhea Tamsulosin Medium 01/28/2023 Lightheaded/dizzy, insomnia documented as of this encounter (statuses as of 02/20/2023) Medications Medication Sig Dispensed Refills Start Date [...] as of this encounter (statuses as of 02/20/2023) Active Problems Problem Noted Date Atypical atrial [...] as of this encounter (statuses as of 02/20/2023) Resolved Problems Problem Noted Date Resolved Date [...] 01/17/2012 10/10/2017 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 12/28/2010 01/16/2017 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 Family history of other cardiovascular diseases 07/26/2008 Overview: ICD-10 update of inactive term documented as of this encounter (statuses as of 02/20/2023) Immunizations Name Administration Dates Next Due COVID-19 [...] encounter Miscellaneous Notes * Telephone Encounter - Priya Ray LPN - 02/20/2023 12:35 PM EDT Pt aware and verbalized understanding to repeat PSA 1 week prior to f/u. * Telephone Encounter - Alli Page MD - 02/20/2023 11:54 AM EDT Patient's PSA is rising. Should have repeat value done closer to office visit, e.g. 1 week before. Thanks, HM documented in this encounter Plan of Treatment Upcoming Encounters Date Type Specialty Care Team Description 02/24/2023 Office Visit Nephrology Tip Bergman MD [address] [place] [address] 03/05/2023 Anticoagulation Pharmacy [facility] 132 [facility] [place] [address] 05/02/2023 Office Visit Family Medicine Ioana Son[address] [place] [address] 05/28/2023 Office Visit Urology Alli Page MD [address] [facility] [address] [place] [address] 06/20/2023 Office Visit Cardiology Lauro Thompson PA-C [address] [facility] [place] [address] 08/18/2023 Cardiac Studies Cardiology Chino Rivas [facility] [place] [address] 09/10/[address] [facility] [place] 132 [facility] [place] [address] 09/22/2023 Office Visit Hematology Oncology Lamar Quintero MD 200 [place] [address] Scheduled Orders Name Type Priority Associated Diagnoses Orde r Schedule PSA Lab Routine Prostate cancer (HCC) Expected: 03/24/2023, Expires: Health Maintenance Due Date Last Done Comments Hepatitis C Screening 1963 Depression, Most Recent Score >= 10 (will fire each visit until score < 10) 06/14/2020 06/13/2020 COLONOSCOPY-EVERY 3 YRS AGES 18-100 01/13/2021 01/13/2018 COVID-19 Vaccine (4 - Moderna series) 07/17/2021 05/22/2021, 09/28/2020, 08/31/2020 Influenza Vaccine (FLU shot) (#1) 2023 07/16/2012, 06/22/2003 Nephrology Referral 03/19/2023 03/19/2022 GFR 08/22/2023 02/19/2023, 01/28, 12/30/2022, Additional history [...] cancer (HCC)- Primary Malignant neoplasm of prostate documented in this encounter Advance Directives Documents on File Type Date Recorded Patient Flight Service Agent Expl anation Advance Directives and Living Will 02/04/2019 ADVANCE DIRECTIVE / LIVING WILL Power of Assistant Editor 02/04/2019 POWER OF A TTORNEY Latest Code [...] the patient have Health Care Power of Assistant Editor? No Care Teams Alligator Trapper Relationship Specialty Start Date End Date Ioana Son, [address] [place] [address] PCP - General Internal Medicine 02/10/17 documented as of this encounter
--- OUTSIDE RECORDS SUMMARY | 2023-06-22 18:23 | External Medical Summary | Summary of Care ---
Author Name Unknown Organization [facility] Address [address] [facility] [place] [address] Phone [phone] Care Team Providers Care Building Construction Inspector Name Role Phone SonIoana wall Primary Care Provider [phone] Reason for Visit * Reason Comments Re-Check Encounter Details Date Type Department Care Team Description 02/07/2023 Office Visit Family Medicine [address] [place] [address] Mira Jordan MD [address] [place] [address] [place] [address] HFrEF (heart failure with reduced ejection fraction) ([facility])*; Paroxysmal atrial fibrillation (HCC); 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 ([facility]) Allergies Active Allergy Reactions Severity Noted [...] 01/17/2012 10/10/2017 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 12/28/2010 01/16/2017 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 0 [...] (RECTUM) 01/13/2018 adenomatous polyp, diverticulosis, repeat 3 yrs/[facility] COMBINED RT & LEFT HEART CATHETERS 12/07/2009 Dilated cardiomyopathywith severe LV dysfunction;systolic hypertnesion; elevated LV pressures; mildMR; 20-30% distal LAD; 30% distal right t coronary IMPACT TOOTH REMOV PART BONY late teens wisdom teeth extraction LEFT VENTRICULAR PACING ELECTRODE, ADD-ON 09/04/2010 CS LEAD PLACEMENT WITH INITIAL DEVICE performed by SABINA ARIZA IV at [facility] NEEDLE/PUNCH BIOPSY OF PROSTATE 06/20/03 Prostate,Needle/Punch Biopsy [...] brain cancer Heart Disorder Father age 73- [place] Heart Disorder Uncle (Unspecified) p. uncle - [place] Heart Disorder Grandfather (Paternal) due to [place] Social History Tobacco Use Smoking status: Never [...] METABOLIC PANEL Mira Jordan MD Family medicine, [place] [address] documented in this encounter Nursing Notes * Melvina Marcum LPN - 02/07/2023 8:29 AM EDT Pt here for check up No concerns noted documented in this encounter Plan of Treatment Upcoming Encounters Date Type Specialty Care Team Description 02/19/2023 [facility]ticoagulation [facility] [place] [address] 02/24/2023 Office Visit Nephrology Tip Bergman MD 200 [facility] [place] [address] 05/02/2023 Office Visit Family Medicine Ioana Son[address] [place] [address] 05/28/2023 Office Visit Urology Alli Page MD [address] [address] [place] [address] 06/20/2023 Office Visit Cardiology Lauro Thompson PA-C [address] [place] [address] 08/18/2023 Cardiac Studies Cardiology Rob, Pacer [facility] [address] [place] [address] 09/10/2023 Laboratory Laboratory Mcdaniel, [facility] [place] [place] [address] 09/22/2023 Office Visit Hematology Oncology Lamar Quintero MD 200 [place] [address] Pending Results Name Type Priority Associated Diagnoses [...] Documents on File Type Date Recorded Patient Technology Engineer Expl anation Advance Directives and Living Will 02/04/2019 ADVANCE DIRECTIVE / LIVING WILL Power of B2B Sales Representative 02/04/2019 POWER OF A TTORNEY Latest Code [...] the patient have Health Care Power of B2B Sales Representative? No Care Teams Building Construction Inspector Relationship Specialty Start Date End Date Ioana Son, [address] [place] [phone] PCP - General Internal Medicine 02/10/17 documented as of this encounter"
--- OUTSIDE RECORDS SUMMARY | 2023-06-22 18:23 | External Medical Summary | Summary of Care ---
Author Name Unknown Organization [facility] Address [address] [facility] [place] [address] Phone [phone] Care Team Providers Care Binder Operator Name Role Phone SonIoana wall Primary Care Provider [phone] Reason for Visit * Reason Comments Re-Check Encounter Details Date Type Department Care Team Description 02/07/2023 Office Visit Family Medicine [address] [place] [address] Mira Jordan MD [address] [place] [address] [place] [address] HFrEF (heart failure with reduced ejection fraction) ([facility])*; Paroxysmal atrial fibrillation (HCC); 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 ([facility]) Allergies Active Allergy Reactions Severity Noted [...] (RECTUM) 01/13/2018 adenomatous polyp, diverticulosis, repeat 3 yrs/[facility] COMBINED RT & LEFT HEART CATHETERS 12/07/2009 Dilated cardiomyopathywith severe LV dysfunction;systolic hypertnesion; elevated LV pressures; mildMR; 20-30% distal LAD; 30% distal right t coronary IMPACT TOOTH REMOV PART BONY late teens wisdom teeth extraction LEFT VENTRICULAR PACING ELECTRODE, ADD-ON 09/04/2010 CS LEAD PLACEMENT WITH INITIAL DEVICE performed by SABINA ARIZA IV at [facility] NEEDLE/PUNCH BIOPSY OF PROSTATE 06/20/03 Prostate,Needle/Punch Biopsy [...] brain cancer Heart Disorder Father age 73- [place] Heart Disorder Uncle (Unspecified) p. uncle - [place] Heart Disorder Grandfather (Paternal) due to [place] Social History Tobacco Use Smoking status: Never [...] METABOLIC PANEL Mira Jordan MD Family medicine, [place] [address] documented in this encounter Nursing Notes * Melvina Marcum LPN - 02/07/2023 8:29 AM EDT Pt here for check up No concerns noted documented in this encounter Plan of Treatment Upcoming Encounters Date Type Specialty Care Team Description 02/19/2023 [facility] [place] [address] 02/24/2023 Office Visit Nephrology Tip Bergman MD [facility] [place] [address] 05/02/2023 Office Visit Family Medicine Ioana Son[address] [place] [address] 05/28/2023 Office Visit Urology Alli Page MD [address] [address] [place] [address] 06/20/2023 Office Visit Cardiology Lauro Thompson PA-C [address] [place] [address] 08/18/2023 Cardiac Studies Cardiology Rob, Pacer [facility] [address] [place] [address] 09/10/2023 Laboratory Laboratory Mcdaniel, [facility] [address] [place] [address] 09/22/2023 Office Visit Hematology Oncology Lamar Quintero MD 200 [place] [address] Pending Results Name Type Priority Associated Diagnoses [...] Documents on File Type Date Recorded Patient Overhead Foreman Expl anation Advance Directives and Living Will 02/04/2019 ADVANCE DIRECTIVE / LIVING WILL Power of Candy Attendant 02/04/2019 POWER OF A TTORNEY Latest Code [...] the patient have Health Care Power of Candy Attendant? No Care Teams Binder Operator Relationship Specialty Start Date End Date Ioana Son, [address] [place] [phone] PCP - General Internal Medicine 02/10/17 documented as of this encounter"
--- OUTSIDE RECORDS SUMMARY | 2023-06-22 18:23 | External Medical Summary | Summary of Care ---
Author Name Unknown Organization [facility] Address [address] [facility] [place] [address] Phone [phone] Care Team Providers Care Personal Lines Appraiser Name Role Phone SonIoana wall Primary Care Provider [phone] Reason for Visit * Reason Onset Date Comments Outpatient Testing 02/18/2023 Encounter Details Date Type Department Care Team Description 02/18/2023 Telephone [facility] [place] [address] Tip Bergman MD 200 [facility] [place] [address] Outpatient Testing Allergies Active Allergy Reactions Severity Noted Date Comments Jerod Inhibitors Cough 12/12/2009 Sulfa Antibiotics 06/08/1999 Gi upset/diarrhea Tamsulosin Medium 01/28/2023 Lightheaded/dizzy, insomnia documented as of this encounter (statuses as of 02/18/2023) Medications Medication Sig Dispensed Refills Start Date [...] as of this encounter (statuses as of 02/18/2023) Active Problems Problem Noted Date Atypical atrial [...] as of this encounter (statuses as of 02/18/2023) Resolved Problems Problem Noted Date Resolved Date [...] 01/17/2012 10/10/2017 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 12/28/2010 01/16/2017 half-way current use of 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 therapy 0 12/28/2010 10/27/2020 Overview: ICD-10 update of inactive term Automatic implantable cardioverter-defibrillator in situ 09/14/2010 06/12/2017 SYSTOLIC HYPERTENSION 12/13/2009 06/12/2017 FAMILY HX,CARDIOVASCULAR DISEASE 07/26/2008 02/10/2017 ADVANCE DIRECTIVE INFORMATION 01/13/2006 Overview: Pt took booklet. Family history of other cardiovascular diseases 07/26/2008 Overview: ICD-10 update of inactive term documented as of this encounter (statuses as of 02/18/2023) Immunizations Name Administration Dates Next Due COVID-19 [...] encounter Miscellaneous Notes * Telephone Encounter - Brittney Cobb RN - 02/18/2023 2:22 PM EDT TE with pt to complete lab tests prior to appointment next week. documented in this encounter Plan of Treatment Upcoming Encounters Date Type Specialty Care Team Description 02/19/2023 Anticoagulation Pharmacy [facility] 132 [facility] [place] [address] 02/24/2023 Office Visit Nephrology Tip Bergman MD [address] [place] [address] 05/02/2023 Office Visit Family Medicine SonIoana wall[address] [place] [address] 05/28/2023 Office Visit Urology Alli Page MD [address] [address] [place] [address] 06/20/2023 Office Visit Cardiology Lauro Thompson PA-C 132 [facility] [place] [address] 08/18/2023 Cardiac Studies Cardiology Rob Pacer [facility] 132 [facility] [place] [address] 09/10/2023 Laboratory Laboratory [facility] 132 [facility] [place] [address] 09/22/2023 Office Visit Hematology Oncology Lamar Quintero MD [address] [place] [address] Scheduled Orders Name Type Priority Associated Diagnoses Orde r Schedule 25-HYDROXY VITAMIN D Lab STAT Kidney disease, chronic, stage IV (GFR 15-29 ml/min) (HCC) Vitamin D deficiency Expected: 02/18/2023, Expires: 02/19/2024 ALBUMIN / CREATININE RATIO, URINE Lab STAT Kidney disease, chronic, stage IV (GFR 15-29 ml/min) ([facility]) Expected: 02/18/2023, Expires: 02/19/2024 HEPATITIS B SURFACE ANTIBODY Lab STAT Kidney disease, chronic, stage IV (GFR 15-29 ml/min) ([facility]) Expected: 02/18/2023, Expires: 02/19/2024 PTH Lab STAT Kidney disease, chronic, stage IV (GFR 15-29 ml/min) ([facility]) Expected: 02/18/2023, Expires: 02/19/2024 RENAL FUNCTION PANEL Lab STAT Kidney disease, chronic, stage IV (GFR 15-29 ml/min) ([facility]) Expected: 02/18/2023, Expires: 02/19/2024 Health Maintenance Due Date Last Done Comments [...] 12/23/2022, Additional history exists TSH 09/17/2023 09/16/2022, 02/2 06/2022, 06/14/2022, Additional history exists HbA1c 10/30/2023 [...] Primary Chronic kidney disease, Stage IV (severe) Vitamin D deficiency Unspecified vitamin D deficiency documented in this encounter Advance Directives Documents on File Type Date Recorded Patient Vessel Crew Member Expl anation Advance Directives and Living Will 02/04/2019 ADVANCE DIRECTIVE / LIVING WILL Power of Cash Teller 02/04/2019 POWER OF A TTORNEY Latest Code [...] the patient have Health Care Power of Cash Teller? No Care Teams Personal Lines Appraiser Relationship Specialty Start Date End Date Ioana Son, [address] [place] [phone] PCP - General Internal Medicine 02/10/17 documented as of this encounter
--- OUTSIDE RECORDS SUMMARY | 2023-06-22 18:23 | External Medical Summary ---
Author Name Unknown Address Unknown Organization [id number]:[facility] - [address] [place] [address] Laboratory Report Ordering Provider Test Date Status LETICIA LYNN 02/19/2023 09:59:15 Final Therapeutic ranges for non-o perative patients:
Prophylaxsis/treatment of DVT: (Range:2.0-3.0)
Treatment of pulmonary embolism:(Range:2.0-3.0)
Prevention of systemic embolism from:
-tissue heart valves
-acute myocardial infarction
-valvular heart disease
-atrial fibrillation
(Range: 2.0-3.0)
Mechanical prosthetic valves: (Range: 2.5-3.5) Observation Date Value Abnormality Reference (Units ) Status INR in Capillary blood by Coagulation assay 02/19/2023 09:59:15 1.6 (INR) Final Performing Location [facility] - [address] [place] [address]
--- OUTSIDE RECORDS SUMMARY | 2023-06-22 18:23 | External Medical Summary ---
Author Name Unknown Address Unknown Organization [id number]:[facility] [place] - [address] [place] [address] Laboratory Report Ordering Provider Test Date Status VIDAL MCCALLUM 02/07/2023 08:57:38 Therese l Observation Date Value Abnormality Reference (Units ) Status BUN 02/07/2023 08:57:38 42 Above high normal 6-20 (mg/dL) Final Creatinine 02/07/2023 08:57:38 2.5 Above high normal 0.6-1.2 (mg/dL) Final Glomerular filtration rate/1.73 sq M.predicted [Volume Rate/Area] in Serum, Plasma or Blood by Creatinine-based formula (CKD-EPI) 02/07/2023 08:57:38 25 Below low normal >=60 (mL/min) Final eGFR is calculated based on the CKD-EPI 2020 equation SODIUM 02/07/2023 08:57:38 145 135-146 (m mol/L) Final Potassium 02/07/2023 08:57:38 4.8 3.5-5.1 (m mol/L) Final Cl 02/07/2023 08:57:38 107 98-107 (mm ol/L) Final CO2 02/07/2023 08:57:38 25 22-32 (mmo l/L) Final Anion gap 02/07/2023 08:57:38 13 7-15 (mmol /L) Final Glucose 02/07/2023 08:57:38 146 Above high normal 70 -120 (mg/dL) Final Calcium 02/07/2023 08:57:38 9.1 8.4-10.2 ( mg/dL) Final Performing Location [facility] - [address] [place] [address]
--- OUTSIDE RECORDS SUMMARY | 2023-06-22 18:23 | External Medical Summary | Summary of Care ---
Author Name Unknown Organization [facility] Address [address] [place] [facility] [place] [address] Phone [phone] Care Team Providers Care Charge Rn Name Role Phone SonIoana wall Primary Care Provider [phone] Reason for Visit * Reason Comments Outpatient Testing Encounter Details Date Type Department Care Team Description 02/19/2023 Laboratory Laboratory, [facility] [address] [place] [address] [facility] 132 [address] [facility] [place] [address] Prostate cancer ([facility]); Rising PSA following treatment for malignant neoplasm of prostate; Kidney disease, chronic, stage IV (GFR 15-29 ml/min) ([facility]); Vitamin D deficiency Allergies Active Allergy Reactions Severity Noted Date [...] 01/17/2012 10/10/2017 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 12/28/2010 01/16/2017 [facility] current use of 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 therapy 0 12/28/2010 [...] Office Visit Nephrology Tip Bergman MD [address] [place] [employer] [address] 03/05/2023 [facility]ticoagulation Pharmacy [facility] [address] 05/02/2023 Office Visit Family Medicine Ioana Son[address] [place] [address] 05/28/2023 Office Visit Urology [facility]i Page MD [facility] [place] [phone] 06/20/2023 Office Visit Cardiology Lauro Thompson PA-C [facility] [place] [address] 08/18/2023 Cardiac Studies Cardiology Chino Rivas [facility] 132 [facility] [place] [address] 09/10/2023 Laboratory Laboratory [facility] [address] 09/22/2023 Office Visit Hematology Oncology Lamar Quintero MD 200 [place] [address] Pending Results Name Type Priority Associated Diagnoses Date /Time PSA Lab Routine Prostate cancer (HCC) Rising PSA following treatment for malignant neoplasm of prostate 02/19/2023 10:21 AM EDT 25-HYDROXY VITAMIN D Lab STAT Kidney disease, chronic, stage IV (GFR 15-29 ml/min) (HCC) Vitamin D deficiency 02/19/2023 10:21 AM EDT HEPATITIS B SURFACE ANTIBODY Lab STAT Kidney disease, chronic, stage IV (GFR 15-29 ml/min) ([facility]) 02/19/2023 10:21 AM EDT PTH Lab STAT Kidney disease, chronic, stage IV (GFR 15-29 ml/min) ([facility]) 02/19/2023 10:21 AM EDT RENAL FUNCTION PANEL Lab STAT Kidney disease, chronic, stage IV (GFR 15-29 ml/min) ([facility]) 02/19/2023 10:21 AM EDT ALBUMIN / CREATININE RATIO, URINE Lab STAT Kidney disease, chronic, stage IV (GFR 15-29 ml/min) ([facility]) 02/19/2023 10:23 AM EDT Health Maintenance Due Date Last [...] Prostate cancer (HCC) Malignant neoplasm of prostate Rising PSA following treatment for malignant neoplasm of prostate Kidney disease, chronic, stage IV (GFR 15-29 ml/min) (HCC) Chronic kidney disease, Stage IV (severe) Vitamin D deficiency Unspecified vitamin D deficiency documented in this encounter Advance Directives Documents on File Type Date Recorded Patient Social Media Editor Expl anation Advance Directives and Living Will 02/04/2019 ADVANCE DIRECTIVE / LIVING WILL Power of Application Security Specialist 02/04/2019 POWER OF A TTORNEY Latest Code [...] the patient have Health Care Power of Application Security Specialist? No Care Teams Charge Rn Relationship Specialty Start Date End Date Ioana Son, [address] [place] [address] PCP - General Internal Medicine 02/10/17 documented as of this encounter
--- OUTSIDE RECORDS SUMMARY | 2023-06-22 18:23 | External Medical Summary | Summary of Care ---
Author Name Unknown Organization [facility] Address [address] [facility] [place] [address] Phone [phone] Care Team Providers Care Bond Writer Name Role Phone Ioana Son Primary Care Provider [phone] Reason for Visit * Reason Onset Date Comments Medication Question 02/19/2023 Encounter Details Date Type Department Care Team Description 02/19/2023 Telephone Cardiology, [facility] [address] [place] [address] Lauro Thompson PA-C [address] [place] [address] Medication Question Allergies Active Allergy Reactions Severity Noted Date [...] 01/17/2012 10/10/2017 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 12/28/2010 01/16/2017 longterm current use of 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 therapy 0 12/28/2010 [...] encounter Miscellaneous Notes * Telephone Encounter - Glenda Rosas RN - 02/20/2023 4:11 PM EDT Provider to address: na Reason for Call: Medication Question Contact: My [facility] Contact Type: Medication Outcome: I tried to call patient and got a message. I told him what dose we ordered, if the pharmacy gave something different he will need to contact them Total Time including non face to face (minutes): 10 * Telephone Encounter - DEIDRE Barry - 02/19/2023 4:56 PM EDT Pt requesting a call back from DR scott today. Pt stating pharmacy gave him wrong dose for RX Allopurinol. Please call pt back at [phone]. Thank You, Dex Williamson [facility] [employer] [facility] (Formerly Telepharmacy) 02/19/2023, 4:57 PM documented in this encounter Plan of Treatment Upcoming Encounters Date Type Specialty Care Team Description 02/24/2023 Office Visit Nephrology Tip Bergman MD 200 [facility] [place] [address] 03/05/2023 Anticoagulation Pharmacy [facility] [place] [address] [place] [address] 05/02/2023 Office Visit Family Medicine Ioana Son[address] [place] [address] 05/28/2023 Office Visit Urology Alli Page MD [address] [address] [place] [address] 06/20/2023 Office Visit Cardiology Lauro Thompson PA-C [address] [place] [address] 08/18/2023 Cardiac Studies Cardiology Movallesteban[facility] 132 [facility] [place] [address] 09/10/2023 Laboratory Laboratory Tonya Mcdaniel 132 [facility] [place] [address] 09/22/2023 Office Visit Hematology Oncology Lamar Quintero MD 200 [place] [address] Health Maintenance Due Date Last Done Comments [...] 06/14/2022, Additional history exists HbA1c 10/30/2023 10/29/2022, 050 09/2021, 11/03/2020, Additional history exists Hgb 12/24/2023 [...] Documents on File Type Date Recorded 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 No Care Teams Bond Writer Relationship Specialty Start Date End Date Ioana Son, [address] [place] [address] PCP - General Internal Medicine 02/10/17 documented as of this encounter
--- OUTSIDE RECORDS SUMMARY | 2023-06-22 18:23 | External Medical Summary ---
Author Name Unknown Address Unknown Organization [id number]:[facility] - [address] [place] [address] Laboratory Report Ordering Provider Test Date Status TORRI GALVAN 02/19/2023 10:21:39 Final Observation Date Value Abnormality Reference (Units ) Status Parathyrin.intact [Mass/volume] in Serum or Plasma 02/19/2023 10:21:39 148 Above high normal 15-65 (pg/mL) Final Performing Location [facility] - [address] [place] [address]
--- OUTSIDE RECORDS SUMMARY | 2023-06-22 18:23 | External Medical Summary | Summary of Care ---
Author Name Unknown Organization [facility] Address [address] [facility] [address] Phone [phone] Care Team Providers Care Patient Relations Liaison Name Role Phone SonIoana wall Primary Care Provider [phone] Reason for Visit * Reason Comments Dosage Adjustment In Person (Anticoag Cl inic) Encounter Details Date Type Department Care Team Description 02/06/2023 Anticoagulation Pharmacy, [facility] 132 [facility] [place] [address] [facility] 132 [facility] [place] [address] Apical mural thrombus*; 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; retirement current use of 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 therapy Allergies Active Allergy Reactions Severity Noted Date Comments Jerod Inhibitors Cough 12/12/2009 Sulfa Antibiotics 06/08/1999 Gi upset/diarrhea Tamsulosin Medium 01/28/2023 Lightheaded/dizzy, insomnia documented as of this encounter (statuses as of 02/06/2023) Medications Medication Sig Dispensed Refills Start Date [...] as of this encounter (statuses as of 02/06/2023) Active Problems Problem Noted Date Atypical atrial [...] as of this encounter (statuses as of 02/06/2023) Resolved Problems Problem Noted Date Resolved Date [...] 01/17/2012 10/10/2017 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 12/28/2010 01/16/2017 retirement current use of 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 therapy 0 12/28/2010 10/27/2020 Overview: ICD-10 update of inactive term Automatic implantable cardioverter-defibrillator in situ 09/14/2010 06/12/2017 SYSTOLIC HYPERTENSION 12/13/2009 06/12/2017 FAMILY HX,CARDIOVASCULAR DISEASE 07/26/2008 02/10/2017 ADVANCE DIRECTIVE INFORMATION 01/13/2006 Overview: Pt took booklet. Family history of other cardiovascular diseases 07/26/2008 Overview: ICD-10 update of inactive term documented as of this encounter (statuses as of 02/06/2023) Immunizations Name Administration Dates Next Due COVID-19 [...] this encounter Progress Notes * [facility] - 02/06/2023 10:25 AM EDT Images from the original note were not included. Medication Therapy Disease Management - Anticoagulation Patient: Celso Grant | : 1945 Subjective Patient-Reported Symptoms: Patient Findings Positives: Change in diet/appetite (Broccoli yesterday (does not typically eat vegetables)) Negatives: Signs/symptoms of thrombosis, Signs/symptoms of bleeding, Change in health, Change in alcohol use, Change in activity, Upcoming invasive procedure, Missed doses, Extra doses, Change in medications, Bruising Objective Current Warfarin Dose As of 02/06/2023 Warfarin maintenance plan: 2.5 mg (2.5 mg x 1) every Mon, Karely; 1.25 mg (2.5 mg x 0.5) all other days INR Result As of 02/06/2023 INR goal: 2.0-3.0 INR used for dosin.3 (02/06/2023) Assessment & Plan Warfarin Plan As of 02/06/2023 Full warfarin instructions: 02/06: 5 mg; Otherwise 2.5 mg every Tue, Karely, Sat; 1.25 mg all other days Next INR check: 02/19/2023 Repeat PT/INR in 2 week(s) Weekly dose: increased Additional Dosing Information: Description Patient has 1mg, 2.5mg, 5mg and 6mg tablets Izaiah Berger, ConnerD Clinical Pharmacist Medication Therapy Management [facility] 02/06/2023 10:44 AM [facility] Clinical Pharmacist 02/06/2023, 10:25 AM documented in this encounter Plan of Treatment Upcoming Encounters Date Type Specialty Care Team Description 02/07/2023 Office Visit Family Medicine Mira Jordan MD [address] [place] [address] [place] [address] 02/19/2023 Anticoagulation Pharmacy [facility] [address] [place] [address] 02/24/2023 Office Visit Nephrology Tip Bergman MD 200 [facility] [place], [place] [address] 05/02/2023 Office Visit Family Medicine Ioana Sno[address] [place] [address] 05/28/2023 Office Visit Urology Alli Page MD [address] [place] [address] 06/20/2023 Office Visit Cardiology Lauro Thompson PA-C [address] [place] [address] 08/18/2023 Cardiac Studies [facility]iology [facility] [address] [facility] [address] 09/10/2023 Laboratory Laboratory [facility] [address] 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 57-10 Blood 02/06/2023 10:3 0 AM EDT 02/06/2023 10:32 AM EDT Narrative [facility] 57-10 - 02/06/2023 10:32 AM EDT Therapeutic ranges for non-operative patients: Prophylaxsis/treatment of DVT: (Range:2.0-3.0) Treatment of pulmonary embolism:(Range:2.0-3.0) Prevention of systemic embolism from: -tissue heart valves -acute myocardial infarction -valvular heart disease -atrial fibrillation (Range: 2.0-3.0) Mechanical prosthetic valves: (Range: 2.5-3.5) [facility] LAB POINT OF C ARE TEST DOCKED DEVICE UNSOLICITED RESULTS [facility] 57-[address] [place] [address] documented in this encounter Visit Diagnoses Diagnosis Apical mural thrombus- Primary Acute myocardial infarction of other anterior wall, episode of care unspecified 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 Encounter for therapeutic drug monitoring retirement current use of 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 therapy documented in this encounter Advance Directives Documents on File Type Date Recorded 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 No Care Teams Patient Relations Liaison Relationship Specialty Start Date End Date Ioana Son, [address] [place] [address] PCP - General Internal Medicine 02/10/17 documented as of this encounter"
--- OUTSIDE RECORDS SUMMARY | 2023-06-22 18:23 | External Medical Summary | Summary of Care ---
Author Name Unknown Organization [facility] Address [address] [facility] [address] Phone [phone] Care Team Providers Care Laundry Assistant Name Role Phone SonIoana wall Primary Care Provider [phone] Reason for Visit * Reason Comments Dosage Adjustment In Person (Anticoag Cl inic) Encounter Details Date Type Department Care Team Description 03/05/2023 Anticoagulation Pharmacy, [facility] 132 [facility] [place] [address] [facility] 132 [facility] [place] [address] Apical mural thrombus*; 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; 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 Allergies Active Allergy Reactions Severity Noted Date Comments Jerod Inhibitors Cough 12/12/2009 Sulfa Antibiotics 06/08/1999 Gi upset/diarrhea Tamsulosin Medium 01/28/2023 Lightheaded/dizzy, insomnia documented as of this encounter (statuses as of 03/05/2023) Medications Medication Sig Dispensed Refills Start Date [...] as of this encounter (statuses as of 03/05/2023) Active Problems Problem Noted Date Atypical atrial [...] as of this encounter (statuses as of 03/05/2023) Resolved Problems Problem Noted Date Resolved Date [...] 01/17/2012 10/10/2017 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 12/28/2010 01/16/2017 intermediate current use of 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 therapy 0 12/28/2010 10/27/2020 Overview: ICD-10 update of inactive term Automatic implantable cardioverter-defibrillator in situ 09/14/2010 06/12/2017 SYSTOLIC HYPERTENSION 12/13/2009 06/12/2017 FAMILY HX,CARDIOVASCULAR DISEASE 07/26/2008 02/10/2017 ADVANCE DIRECTIVE INFORMATION 01/13/2006 Overview: Pt took booklet. Family history of other cardiovascular diseases 07/26/2008 Overview: ICD-10 update of inactive term documented as of this encounter (statuses as of 03/05/2023) Immunizations Name Administration Dates Next Due COVID-19 [...] this encounter Progress Notes * Agnes Wheeler [facility] - 03/05/2023 9:57 AM EDT Images from the original note [...] Bruising Objective Current Warfarin Dose As of 03/05/2023 Warfarin maintenance plan: 1.25 mg (2.5 mg x 0.5) every Mon, Fri; 2.5 mg (2.5 mg x 1) all other days INR Result As of 03/05/2023 INR goal: 2.0-3.0 INR used for dosin.9 (03/05/2023) Assessment & Plan Warfarin Plan As of 03/05/2023 Full warfarin instructions: 1.25 mg every Mon, Fri; 2.5 mg all other days Next INR check: 04/02/2023 Repeat PT/INR in 4 week(s) Weekly dose: increased Additional Dosing Information: Description Patient has 1mg, 2.5mg, 5mg and 6mg tablets Agnes Wheeler [facility] Clinical Pharmacist 03/05/2023, 10:12 AM Electronically signed by Agnes Wheeler [facility] at 03/05/2023 10:12 AM EDT documented in this encounter Plan of Treatment Upcoming Encounters Date Type Specialty Care Team Description 04/02/2023 Anticoagulation Pharmacy [facility] 132 [facility] [place] [address] 05/02/2023 Office Visit Family Medicine Ioana Son[address] [place] [id number] 05/28/2023 Office Visit Urology Alli Page MD 27 [facility] 270 [place] [address] 06/20/2023 Office Visit Cardiology Lauro Thompson PA-C [address] [place] [address] 08/18/2023 Cardiac Studies Cardiology [facility] Meredith Mcdaniel [address] [place] [address] 09/10/2023 Laboratory Laboratory [facility] [address] [facility] [place] [address] 09/22/2023 Office Visit Hematology Oncology Lamar Quintero MD 200 [facility] [place] [address] 09/23/2023 Office Visit Nephrology Tip Bergman MD 200 [facility] [place] [address] Health Maintenance Due Date Last Done Comments [...] Comments INR FINGERSTICK, POINT OF CARE STAT 03/05/2023 9:59 AM EDT 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 intermediate current use of 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 therapy documented in this encounter Results * INR FINGERSTICK, POINT OF CARE (03/05/2023 9:59 AM EDT) Fingerstick INR 1.9 INR 10:04 AM EDT [facility]-10 Blood 03/05/2023 9:59 AM EDT 03/05/2023 10:04 AM EDT Narrative [facility] 57-10 - 03/05/2023 10:04 AM EDT Therapeutic ranges for non-operative patients: Prophylaxsis/treatment of DVT: (Range:2.0-3.0) Treatment of pulmonary embolism:(Range:2.0-3.0) Prevention of systemic embolism from: -tissue heart valves -acute myocardial infarction -valvular heart disease -atrial fibrillation (Range: 2.0-3.0) Mechanical prosthetic valves: (Range: 2.5-3.5) Agnes Wheeler [facility] LAB POINT OF C ARE TEST DOCKED DEVICE UNSOLICITED RESULTS LAB[facility]ATORY [facility] [place] 57-10 [address] [place] [address] documented in this encounter Visit Diagnoses Diagnosis Apical mural thrombus- Primary Acute myocardial infarction of other anterior wall, episode of care unspecified 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 Encounter for therapeutic drug monitoring intermediate current use of 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 therapy documented in this encounter Advance Directives Documents on File Type Date Recorded 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 No Care Teams Laundry Assistant Relationship Specialty Start Date End Date Ioana Son, [address] [place] [address] PCP - General Internal Medicine 02/10/17 documented as of this encounter"
--- OUTSIDE RECORDS SUMMARY | 2023-06-22 18:23 | External Medical Summary | Summary of Care ---
Author Name Unknown Organization [facility] Address [address] [facility] [address] Phone [phone] Care Team Providers Care Pest Control Supervisor Name Role Phone SonIoana wall Primary Care Provider [phone] Reason for Visit * Reason Comments Dosage Adjustment In Person (Anticoag Cl inic) Encounter Details Date Type Department Care Team Description 02/19/2023 Anticoagulation Pharmacy, [facility] 132 [facility] [place] [address] [facility] 132 [facility] [place] [address] Apical mural thrombus* Allergies Active Allergy Reactions [...] 01/17/2012 10/10/2017 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 12/28/2010 01/16/2017 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 Agnes Wheeler, Pharm D, BCACP Clinical Pharmacist 02/19/2023, 10:37 AM documented in this encounter Plan of Treatment Upcoming Encounters Date Type Specialty Care Team Description 02/24/2023 Office Visit Nephrology Tip Bergman MD [address] [place] [address] 03/05/2023 [facility]ticoagulation Pharmacy [facility] [address] 05/02/2023 Office Visit Family Medicine Ioana Son[address] [place] [address] 05/28/2023 Office Visit Urology Alli Page MD [address] [place] [address] [place] [address] 06/20/2023 Office Visit Cardiology Lauro Thompson PA-C 132 [facility] [place] [address] 08/18/2023 Cardiac Studies Cardiology Rob [facility] 132 [facility] [place] [address] 09/10/2023 Laboratory Laboratory [facility] 132 [facility] [place] [address] 09/22/2023 Office Visit Hematology Oncology Lamar Quintero MD [address] [place] [address] Health Maintenance Due Date Last Done Comments [...] (Range: 2.0-3.0) Mechanical prosthetic valves: (Range: 2.5-3.5) [facility] POINT OF CARE TEST DOCKED DEVICE UNSOLICITED RESULTS [facility] 57-10 132 [facility] [place] [address] documented in this encounter Visit Diagnoses Diagnosis Apical mural thrombus- Primary Acute myocardial infarction of other anterior wall, episode of care unspecified documented in this encounter Advance Directives Documents on File Type Date Recorded Patient Operations Architect Expl anation Advance Directives and Living Will 02/04/2019 ADVANCE DIRECTIVE / LIVING WILL Power of Bankruptcy Attorney 02/04/2019 POWER OF A TTORNEY Latest Code [...] the patient have Health Care Power of Bankruptcy Attorney? No Care Teams Pest Control Supervisor Relationship Specialty Start Date End Date Ioana Son, [address] [place] [address] PCP - General Internal Medicine 02/10/17 documented as of this encounter
--- OUTSIDE RECORDS SUMMARY | 2023-06-22 18:24 | External Medical Summary | Summary of Care ---
Author Name Unknown Organization [facility] Address [address] [facility] [place] [address] Phone [phone] Care Team Providers Care Residential Nurse Name Role Phone SonIoana wall Primary Care Provider [phone] Encounter Details Date Type Department Care Team Description 01/09/2023 Telephone [facility] Urology 400 [facility] [place] [address] Alli Page MD [address] [place] [address] [place] [address] Allergies Active Allergy Reactions Severity Noted Date Comments Jerod Inhibitors Cough 12/12/2009 Sulfa Antibiotics 06/08/1999 Gi upset/diarrhea documented as of this encounter (statuses as of 01/10/2023) Medications Medication Sig Dispensed Refills Start Date [...] as of this encounter (statuses as of 01/10/2023) Active Problems Problem Noted Date Atypical atrial [...] as of this encounter (statuses as of 01/10/2023) Resolved Problems Problem Noted Date Resolved Date [...] as of this encounter (statuses as of 01/10/2023) Immunizations Name Administration Dates Next Due COVID-19 [...] encounter Miscellaneous Notes * Telephone Encounter - Deidra Pretty LPN - 01/10/2023 10:07 AM EDT Spoke with pt, aware of below, will pickling drum operator rx today. * Telephone Encounter - Priya Ray LPN - 01/09/2023 9:47 AM EDT lmtcb * Telephone Encounter - Alli Page MD - 01/09/2023 7:35 AM EDT See cardiology note. Notify patient to resume tamsulosin, Rx refilled. Thx, HM * Telephone Encounter - Alli Page MD - 01/09/2023 7:34 AM EDT ----- Message from Lauro Thompson PA-C sent at 01/08/2023 5:37 PM EDT ----- Regarding: RE: Tamsulosin He has been on and off it multiple times through the years. OK to retry/resume. ThanksLauro ----- Message ----- From: Alli Page MD Sent: 01/08/2023 3:58 PM EDT To: Lauro Thompson PA-C Subject: Tamsulosin Lauro I see you stopped patient's Flomax in October when he was suffering from CHF exacerbation due to confusion with his diuretics. Any reason to keep him off of it? His voiding has since deteriorated. Thanks, Alli Page documented in this encounter Plan of Treatment Upcoming Encounters Date Type Specialty Care Team Description 01/22/2023 Anticoagulation Pharmacy [address] [place] [address] 01/27/2023 Cardiac Studies Cardiology Chino Rivas [address] [place] [address] 02/07/2023 Office Visit Family Medicine Mira Jordan MD 210 [facility] [place] [address] 02/24/2023 Office Visit Nephrology Tip Bergman MD [address] [place] [address] 05/02/2023 Office Visit Family Medicine Ioana Son DO 210 [facility] [place] [address] 05/28/2023 Office Visit Urology Alli Page MD 27 [facility] 270 [place] [address] 06/20/2023 Office Visit Cardiology Lauro Thompson PA-C 132 [facility] [place] [address] 09/10/2023 Laboratory Laboratory [facility]cd[facility]iel [facility] [address] 09/22/2023 Office Visit Hematology Oncology Lamar Quintero MD [address] [place] [address] Health Maintenance Due Date Last Done Comments [...] Documents on File Type Date Recorded 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 No Care Teams Residential Nurse Relationship Specialty Start Date End Date Ioana Son, [address] [place] [address] PCP - General Internal Medicine 02/10/17 documented as of this encounter
--- OUTSIDE RECORDS SUMMARY | 2023-06-22 18:24 | External Medical Summary | Summary of Care ---
Author Name Unknown Organization [facility] Address [address] [facility] [address] Phone [phone] Care Team Providers Care Cavity Pump Operator Name Role Phone SonIoana wall Primary Care Provider [phone] Reason for Visit * Reason Comments Dosage Adjustment In Person (Anticoag Cl inic) Encounter Details Date Type Department Care Team Description 01/08/2023 Anticoagulation Pharmacy, [facility] 132 [facility] [place] [address] [facility] 132 [facility] [place] [address] Paroxysmal atrial fibrillation (HCC)*; 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; intermediate manager current use of 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 therapy Allergies Active Allergy Reactions Severity Noted Date Comments Jerod Inhibitors Cough 12/12/2009 Sulfa Antibiotics 06/08/1999 Gi upset/diarrhea documented as of this encounter (statuses as of 01/08/2023) Medications Medication Sig Dispensed Refills Start Date [...] mouth in the morning. 0 01/03/2023 Active documented as of this encounter (statuses as of 01/08/2023) Active Problems Problem Noted Date Atypical atrial [...] as of this encounter (statuses as of 01/08/2023) Resolved Problems Problem Noted Date Resolved Date [...] 01/17/2012 10/10/2017 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 12/28/2010 01/16/2017 assisted current use of 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 therapy 0 12/28/2010 10/27/2020 Overview: ICD-10 update of inactive term Automatic implantable cardioverter-defibrillator in situ 09/14/2010 06/12/2017 SYSTOLIC HYPERTENSION 12/13/2009 06/12/2017 FAMILY HX,CARDIOVASCULAR DISEASE 07/26/2008 02/10/2017 ADVANCE DIRECTIVE INFORMATION 01/13/2006 Overview: Pt took booklet. Family history of other cardiovascular diseases 07/26/2008 Overview: ICD-10 update of inactive term documented as of this encounter (statuses as of 01/08/2023) Immunizations Name Administration Dates Next Due COVID-19 [...] this encounter Progress Notes * Agnes Wheeler, [facility] - 01/08/2023 3:18 PM EDT Images from the original note were not included. Medication Therapy Disease Management - Anticoagulation Patient: Celso Grant : 1945 Current Warfarin Dose As of 01/08/2023 Warfarin maintenance plan: 1.25 mg (2.5 mg x 0.5) every Tue, Karely, Sat; 2.5 mg (2.5 mg x 1) all other days Patient-Reported Symptoms: Patient Findings Negatives: Signs/symptoms of thrombosis, Signs/symptoms of bleeding, Change in health, Change in alcohol use, Change in activity, Upcoming invasive procedure, Missed doses, Extra doses, Change in medications, Change in diet/appetite, Bruising INR Result As of 01/08/2023 INR goal: 2.0-3.0 INR used for dosin.7 (01/08/2023) Warfarin Plan As of 01/08/2023 Full warfarin instructions: 01/08: 3.75 mg; Otherwise 1.25 mg every Tue, Karely, Sat; 2.5 mg all other days Next INR check: 01/22/2023 Additional Dosing Information: Description Patient has 1mg, 2.5mg, 5mg and 6mg tablets Repeat PT/INR in 2 week(s) Weekly dose: increased Izaiah Berger, ConnerD Clinical Pharmacist Medication Therapy Management [facility] 01/08/2023 3:59 PM Agnes Wheeler RP Clinical Pharmacist 01/08/2023, 3:59 PM documented in this encounter Plan of Treatment Upcoming Encounters Date Type Specialty Care Team Description 01/22/2023 Anticoagulation Pharmacy [facility] 132 [facility] [place] [address] 01/27/2023 Cardiac Studies Cardiology Movcorky, Pacer [facility] 132 [place] [address] 02/07/2023 Office Visit Family Medicine Mira Jordan MD [address] [place] [address] [place] [address] 02/24/2023 Office Visit Nephrology Tip Bergman MD [address] [place] [address] [place] [address] 05/02/2023 Office Visit Family Medicine Ioana Son, [address] [place] [address] 05/28/2023 Office Visit Urology Alli Page MD [address] [place] [address] [place] [address] 06/20/2023 Office Visit Cardiology Lauro Thompson PA-C 132 [address] [facility] [place] [address] 09/10/2023 Laboratory Laboratory Mcdaniel, Lab [facility] [address] [place] [address] 09/22/2023 Office Visit Hematology Oncology Lamar Quintero MD [address] [place] [address] Health Maintenance Due Date Last Done Comments Hepatitis C Screening 1963 Depression, Most Recent Score >= 10 (will fire each visit until score < 10) 06/14/2020 06/13/2020 COLONOSCOPY-EVERY 3 YRS AGES 18-100 01/13/2021 01/13/2018 COVID-19 Vaccine (4 - Moderna series) 07/17/2021 05/22/2021, 09/28/2020, 08/31/2020 Influenza Vaccine (FLU shot) (#1) 2023 07/16/2012, 06/22/2003 Nephrology Referral 03/19/2023 03/19/2022 PTH 03/19/2023 03/19/2022, 050 09/2021, 01/30/2021, Additional history exists Phosphate 03/19/2023 [...] Comments INR FINGERSTICK, POINT OF CARE STAT 01/08/2023 3:23 PM EDT 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 intermediate manager current use of 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 therapy documented in this encounter Results * INR FINGERSTICK, POINT OF CARE (01/08/2023 3:23 PM EDT) Fingerstick INR 1.7 INR 3:32 PM EDT [facility] 57-10 Blood 01/08/2023 3:23 PM EDT 01/08/2023 3:32 PM EDT Narrative [facility] 57-10 - 01/08/2023 3:32 PM EDT Therapeutic ranges for non-operative patients: Prophylaxsis/treatment of DVT: (Range:2.0-3.0) Treatment of pulmonary embolism:(Range:2.0-3.0) Prevention of systemic embolism from: -tissue heart valves -acute myocardial infarction -valvular heart disease -atrial fibrillation (Range: 2.0-3.0) Mechanical prosthetic valves: (Range: 2.5-3.5) Agnes Wheeler [facility] LAB POINT OF C ARE TEST DOCKED DEVICE UNSOLICITED RESULTS LABORATORY LISA [place]INO 57-10 [address] [place] [address] documented in this encounter Visit Diagnoses Diagnosis Paroxysmal atrial fibrillation (HCC)- Primary Atrial fibrillation 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 Encounter for therapeutic drug monitoring assisted current use of 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 therapy documented in this encounter Advance Directives Documents on File Type Date Recorded Patient Hospitality Workers Expl 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 No Care Teams Cavity Pump Operator Relationship Specialty Start Date End Date Ioana Son, [address] [place] [address] PCP - General Internal Medicine 02/10/17 documented as of this encounter
--- OUTSIDE RECORDS SUMMARY | 2023-06-22 18:24 | External Medical Summary | Summary of Care ---
Author Name Unknown Organization [facility] Address [address] [facility] [place] [address] Phone [phone] Care Team Providers Care Melter Supervisor Name Role Phone SonIoana wall Primary Care Provider [phone] Encounter Details Date Type Department Care Team Description 01/09/2023 Telephone [facility] Urology 400 [facility] [place] [address] Alli Page MD [address] [place] [address] [place] [address] Allergies Active Allergy Reactions Severity Noted Date Comments Jerod Inhibitors Cough 12/12/2009 Sulfa Antibiotics 06/08/1999 Gi upset/diarrhea documented as of this encounter (statuses as of 01/09/2023) Medications Medication Sig Dispensed Refills Start Date [...] as of this encounter (statuses as of 01/09/2023) Active Problems Problem Noted Date Atypical atrial [...] as of this encounter (statuses as of 01/09/2023) Resolved Problems Problem Noted Date Resolved Date [...] as of this encounter (statuses as of 01/09/2023) Immunizations Name Administration Dates Next Due COVID-19 [...] times through the years. OK to retry/resume. Thanks, Lauro ----- Message ----- From: Alli Page MD Sent: 01/08/2023 3:58 PM EDT To: Lauro Thompson PA-C Subject: Tamsulosin Lauro, I see you stopped patient's Flomax in October when he was suffering from CHF exacerbation due to confusion with his diuretics. Any reason to keep him off of it? His voiding has since deteriorated. Thanks, Alli Page documented in this encounter Plan of Treatment Upcoming Encounters Date Type Specialty Care Team Description 01/22/2023 Anticoagulation Pharmacy [facility] 132 [facility] [place] [address] 01/27/2023 Cardiac Studies Cardiology Rob, [facility] 132 [facility] [place] [address] 02/07/2023 Office Visit Family Medicine Mira Jordan MD [address] [place] [address] [place] [address] 02/24/2023 Office Visit Nephrology Tip Bergman MD 200 [facility] [place] [address] 05/02/2023 Office Visit Family Medicine Ioana Son[address] [place] [address] 05/28/2023 Office Visit Urology Alli Page MD [address] [place] [address] [place] [id number] 06/20/2023 Office Visit Cardiology Lauro Thompson PA-C [address] [place] [address] 09/10/2023 Laboratory Laboratory Mcdaniel [facility] [address] [place] [address] 09/22/2023 Office Visit Hematology Oncology Lamar Quintero MD 200 [facility] [place] [address] Health Maintenance Due Date Last Done Comments [...] Documents on File Type Date Recorded Patient Delivery Professional Expl anation Advance Directives and Living Will 02/04/2019 ADVANCE DIRECTIVE / LIVING WILL Power of Retail Maintenance Technician 02/04/2019 POWER OF A TTORNEY Latest Code [...] the patient have Health Care Power of Retail Maintenance Technician? No Care Teams Melter Supervisor Relationship Specialty Start Date End Date Ioana Son, [address] [place] [address] PCP - General Internal Medicine 02/10/17 documented as of this encounter
--- OUTSIDE RECORDS SUMMARY | 2023-06-22 18:24 | External Medical Summary | Summary of Care ---
Author Name Unknown Organization [facility] Address [address] [facility] [address] Phone [phone] Care Team Providers Care Utility Supervisor Boat And Plant Name Role Phone SonIoana wall Primary Care Provider [phone] Reason for Visit * Reason Comments Dosage Adjustment In Person (Anticoag Cl inic) Encounter Details Date Type Department Care Team Description 01/08/2023 Anticoagulation Pharmacy, [facility] [address] [facility] [place] [address] [facility] [address] [facility] [place] [address] Paroxysmal atrial fibrillation (HCC)*; 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; 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 Allergies Active [...] 01/17/2012 10/10/2017 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 12/28/2010 01/16/2017 [facility] current use of 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 therapy 0 12/28/2010 [...] this encounter Progress Notes * Agnes Wheeler, [facility] - 01/08/2023 3:18 PM EDT Images from [...] Specialty Care Team Description 01/22/2023 Anticoagulation Pharmacy [facility] [address] [facility] [place] [address] 01/27/2023 Cardiac Studies Cardiology Movcorky, Pacer [facility] 132 [place] [address] 02/07/2023 Office Visit Family Medicine Mira Jordan MD [address] [place] [address] [place] [address] 02/24/2023 Office Visit Nephrology Tip Bergman MD [address] [place] [address] [place] [address] 05/02/2023 Office Visit Family Medicine Ioana Son, [address] [place] [address] 06/20/2023 Office Visit Cardiology Lauro Thompson PA-C [address] [place] [address] 09/10/2023 Laboratory Laboratory [facility] [address] [place] [address] 09/22/2023 Office Visit Hematology Oncology Lamar Quintero MD [address] [place] [address] Health Maintenance Due Date Last Done Comments [...] 01/30/2021, Additional history exists Phosphate 03/19/2023 03/19/2022, 050 09/2021, 01/30/2021, Additional history exists Albumin/Creatinine Ratio [...] 01/08/2023 3:23 PM EDT 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 documented in [...] Mechanical prosthetic valves: (Range: 2.5-3.5) Agnes Wheeler [facility] LAB POINT OF C ARE TEST DOCKED DEVICE UNSOLICITED RESULTS LABORATORY LISA ANDINO 57-10 [address] [place] [address] documented in this encounter Visit Diagnoses Diagnosis Paroxysmal atrial fibrillation (HCC)- Primary Atrial fibrillation 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 Encounter for therapeutic drug monitoring [facility] current use of 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 therapy documented in this encounter Advance Directives Documents on File Type Date Recorded Patient Software Implementation Specialist Expl anation Advance Directives and Living Will 02/04/2019 ADVANCE DIRECTIVE / LIVING WILL Power of Change Management Expert 02/04/2019 POWER OF A TTORNEY Latest Code [...] the patient have Health Care Power of Change Management Expert? No Care Teams Utility Supervisor Boat And Plant Relationship Specialty Start Date End Date Ioana Son, [address] [place] [phone] PCP - General Internal Medicine 02/10/17 documented as of this encounter
--- OUTSIDE RECORDS SUMMARY | 2023-06-22 18:24 | External Medical Summary | Summary of Care ---
Author Name Unknown Organization [facility] Address [address] [facility] [place] [address] Phone [phone] Care Team Providers Care Blanking Press Operator Name Role Phone Ioana Son Primary Care Provider Reason for Visit * Reason Onset Date Comments Medication Problem 01/21/2023 Encounter Details Date Type Department Care Team Description 01/21/2023 Telephone Cardiology, [facility] [address] [place] [address] Lauro Thompson PA-C [address] [place] [address] Medication Problem Allergies Active Allergy Reactions Severity Noted Date Comments Jerod Inhibitors Cough 12/12/2009 Sulfa Antibiotics 06/08/1999 Gi upset/diarrhea Tamsulosin Medium 01/28/2023 Lightheaded/dizzy, insomnia documented as of this encounter (statuses as of 01/28/2023) Medications Medication Sig Dispensed Refills Start Date [...] as of this encounter (statuses as of 01/28/2023) Active Problems Problem Noted Date Atypical atrial [...] as of this encounter (statuses as of 01/28/2023) Resolved Problems Problem Noted Date Resolved Date [...] 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 12/28/2010 01/16/2017 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 Family history of other cardiovascular diseases 07/26/2008 Overview: ICD-10 update of inactive term documented as of this encounter (statuses as of 01/28/2023) Immunizations Name Administration Dates Next Due COVID-19 [...] Telephone Encounter - Priya Ray LPN - 01/28/2023 8:27 AM EDT Patients allergy list updated. * Telephone Encounter - Alli Page MD - 01/28/2023 7:31 AM EDT Please add medication and side effect to the patient's medication allergy lists. We can offer another medication eg. alfuzosin if the patient wants to try instead. Thanks, * Telephone Encounter - Deidra Pretty LPN - 01/22/2023 7:57 AM EDT AYESHA Pearson Thank you Lin * Telephone Encounter - Lauro Thompson PA-C - 01/21/2023 4:02 PM EDT Medication prescribed by Urology. Lauro Thompson PA-C Department of Cardiology * Telephone Encounter - Krish Ballard RN - 01/21/2023 3:41 PM EDT Patient phoned the clinic and stated he has to take himself off the tamsulosin due to it making himvery sick. He has become very light headed and dizzy and he cant sleep. He stated he will never take it again. He want Lauro to be aware. He stated it is actually making him crazy. documented in this encounter Plan of Treatment Upcoming Encounters Date Type Specialty Care Team Description 01/29/2023 Anticoagulation Pharmacy [address] [place] [address] 02/07/2023 Office Visit Family Medicine Mira Jordan MD 210 [facility] [place] [address] 02/24/2023 Office Visit Nephrology Tip Bergman MD [address] [place], [place] [address] 05/02/2023 Office Visit Family Medicine Ioana Son DO 210 [facility] [place] [address] 05/28/2023 Office Visit Urology Alli Page MD 27 [facility] 270 [place] [phone] 06/20/2023 Office Visit Cardiology Lauro Thompson PA-Mari [facility] [place] [address] 08/18/2023 Cardiac Studies Cardiology Rob, [facility] [place] [address] 09/10/2023 Laboratory Laboratory [facility] 132 [facility] [place] [address] 09/22/2023 Office Visit Hematology Oncology Lamar Quintero MD [address] [place] [address] Health Maintenance Due Date Last Done Comments [...] Documents on File Type Date Recorded Patient Roving Frame Tender Expl anation Advance Directives and Living Will 02/04/2019 ADVANCE DIRECTIVE / LIVING WILL Power of Front Office Associate 02/04/2019 POWER OF A TTORNEY Latest Code [...] the patient have Health Care Power of Front Office Associate? No Care Teams Blanking Press Operator Relationship Specialty Start Date End Date Ioana Son[address] [place] [address] PCP - General Internal Medicine 02/10/17 documented as of this encounter
--- OUTSIDE RECORDS SUMMARY | 2023-06-22 18:24 | External Medical Summary | Summary of Care ---
Author Name Unknown Organization [facility] Address [address] [facility] [address] Phone [phone] Care Team Providers Care Administrative Associate Name Role Phone Ioana Son Primary Care Provider [phone] Encounter Details Date Type Department Care Team Description 01/28/2023 Result Scan Unspecified Department Valente Hall MD [address] [place] [address] <No scans attached> Allergies Active Allergy Reactions Severity Noted Date [...] Specialty Care Team Description 01/29/2023 Anticoagulation Pharmacy [facility] [address] [facility] [place] [address] 02/07/2023 Office Visit Family Medicine Mira Jordan MD 210 [facility] [place] [address] 02/24/2023 Office Visit Nephrology Tip Bergman MD 200 [place] [address] 05/02/2023 Office Visit Family Medicine Ioana Son DO 210 [facility] [place] [address] 05/28/2023 Office Visit Urology Alli Page MD 27 [facility] [address] [place] [address] 06/20/2023 Office Visit Cardiology Lauro Thompson PA-Mari [address] [facility] [place] [address] 08/18/2023 Cardiac Studies Cardiology Movcorky, Pacer Clinic [facility] [address] [place] [address] 09/10/[address] [facility] [address] [place] [address] 09/22/2023 Office Visit Hematology Oncology Lamar Quintero MD [address] [facility] [place] [address] Health Maintenance Due Date Last Done Comments [...] Procedure Name Priority Date/Time Associated Diagnosis Comments CARDIOLOGY SCANNED RESULT 01/28/2023 documented in this encounter Results * CARDIOLOGY SCANNED RESULT (01/28/2023) 01/28/2023 Valente Hall MD OTHER documented in this encounter Advance Directives Documents on File Type Date Recorded Patient Office Services Representative Expl anation Advance Directives and Living Will 02/04/2019 ADVANCE DIRECTIVE / LIVING WILL Power of Dental Services Director 02/04/2019 POWER OF A TTORNEY Latest Code [...] the patient have Health Care Power of Dental Services Director? No Care Teams Administrative Associate Relationship Specialty Start Date End Date Ioana Son[address] [place] [address] PCP - General Internal Medicine 02/10/17 documented as of this encounter
--- OUTSIDE RECORDS SUMMARY | 2023-06-22 18:24 | External Medical Summary | Summary of Care ---
Author Name Unknown Organization [facility] Address [address] [facility] [place] [address] Phone [phone] Care Team Providers Care Forging Press Lever Tender Name Role Phone Ioana Son DO Primary Care Provider [phone] Reason for Visit * Reason Onset Date Comments Appointment 12/09/2022 Encounter Details Date Type Department Care Team Description 12/09/[address] [place] [address] Ioana Son DO [address] [place] [address] [place] [address] Appointment Allergies Active Allergy Reactions Severity Noted Date Comments Jerod Inhibitors Cough 12/12/2009 Sulfa Antibiotics 06/08/1999 Gi upset/diarrhea documented as of this encounter (statuses as of 01/09/2023) Medications Medication Sig Dispensed Refills Start Date End Date Status ASPIRIN 81 MG PO CHEWIndications:O ther chest pain One pill by mouth once a day with food 100 Tab 5 0 Active CENTRUM SILVER PO TABS one tablet daily 0 Active Metoprolol Succinate ER 50 MG Oral Tablet Extended Release 24 Hour (Toprol XL) Take by mouth 1 Tablet in the morning AND 1 Tablet before bedtime. 180 Tablet 3 2 Active Amiodarone HCl 200 MG Oral Tablet (Cordarone)Indica tions:Persistent atrial fibrillation (HCC) TAKE 1 TABLET BY MOUTH TWICE A DAY 180 Tablet 3 2 Active Levothyroxine Sodium 50 MCG Oral Tablet (Levoxyl)Indicati ons:Abnormal TSH Take by mouth 1 Tablet in the morning. (30 min prior to breakfast or other meds). 90 Tablet 3 2 Active Ipratropium [place] 0.03 % Nasal Solution (Atrovent) Administer 2 Sprays into each nostril 4 times a day as needed (runny nose). for runny nose 30 mL 1 3 12/17/19 23 Discontinued(Med ication List Clean Up) Allopurinol 300 MG Oral Tablet (Zyloprim) Take 1 Tablet by mouth in the morning. 90 Tablet 1 3 01/04/20 23 Discontinued Torsemide 100 MG Oral Tablet (Demadex) Take 1 Tablet by mouth in the morning. 90 Tablet 3 3 12/17/19 23 Discontinued(Med ication List Clean Up) Potassium Chloride Monse ER 20 MEQ Oral Tablet Extended Release Take 4 Tablets by mouth every evening. 360 Tablet 3 3 12/17/19 23 Discontinued(Med ication/Dose Changed) Enoxaparin Sodium 120 MG/0.8ML Injection Solution Prefilled Syringe (Lovenox) 111 mg. 0 3 12/17/19 23 Discontinued(Med ication List Clean Up) Furosemide 40 MG Oral Tablet (Lasix) Take 2 Tablets by mouth. 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 Please schedule HD appt with me. documented in this encounter Plan of Treatment Upcoming Encounters Date Type Specialty Care Team Description 01/22/2023 Anticoagulation Pharmacy [facility], [facility] [address] [place] [address] 01/27/2023 Cardiac Studies Cardiology Chino Rivas [facility] [address] [place] [address] 02/07/2023 Office Visit Family Medicine Mira Jordan MD [address] [place] [address] [place] [address] 02/24/2023 Office Visit [facility]phrology [facility] [address] 05/02/2023 Office Visit Family Medicine Ioana Son DO [address] [place] [address] [place] [address] 05/28/2023 Office Visit Urology Alli Page MD 27 [address] [place] 270 [place] [phone] 06/20/2023 Office Visit Cardiology Lauro Thompson PA-C [address] [place] [address] 09/10/2023 Laboratory Laboratory [facility] 132 [place] [address] 09/22/2023 Office Visit Hematology Oncology Lamar [facility]inter[facility] [address] Health Maintenance Due Date Last Done Comments [...] Documents on File Type Date Recorded Patient Information Architect Expl anation Advance Directives and Living Will 02/04/2019 ADVANCE DIRECTIVE / LIVING WILL Power of Coordinator Of Online Programs 02/04/2019 POWER OF A TTORNEY Latest Code [...] the patient have Health Care Power of Coordinator Of Online Programs? No Care Teams Forging Press Lever Tender Relationship Specialty Start Date End Date Ioana Son, [address] [place] [phone] PCP - General Internal Medicine 02/10/17 documented as of this encounter
--- OUTSIDE RECORDS SUMMARY | 2023-06-22 18:24 | External Medical Summary | Summary of Care ---
Author Name Unknown Organization [facility] Address [address] [facility] [place] [address] Phone [phone] Care Team Providers Care Inspector Handbag Frames Name Role Phone Lui Park Primary Care Provider Reason for Visit * Reason Comments Follow Up Encounter Details Date Type Department Care Team Description 01/08/2023 Office Visit Urology, [facility] 132 [facility] [place] [address] Alli Page MD 27 [facility] [place] 270 [place] [address] Prostate cancer (HCC)*; Rising PSA following treatment for malignant neoplasm of prostate Allergies Active Allergy Reactions Severity Noted Date [...] 01/17/2012 10/10/2017 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 12/28/2010 01/16/2017 detention current use of 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 therapy 0 12/28/2010 [...] Sign Reading Time Taken Comments Blood Pressure - - Pulse - - Temperature 36.1 C (96.9 F) 01/08/2023 3:44 PM ED T Respiratory Rate - - Oxygen Saturation - - Inhaled Oxygen Concentration - - Weight 113.5 kg (250 lb 3.2 oz) 01/08/2023 3:44 PM EDT Height - - Body Mass Index 33.93 12/23/2022 1:02 PM EDT documented in this encounter Progress Notes * Alli Page MD - 01/08/2023 3:45 PM EDT [id number] PCP: LUI PARK [address] [place] [address] [place] [address] Celso Grant is a 77 year old male, who presents for 1 year f/u of his prostate cancer. He notesdifficulties with admission due to CHF and SOB. He notes his tamsulosin was stopped October 2022 by cardiology PA with subsequent deterioration in his voiding. Patient's past notes reviewed. His improvedPSA after provision of Lupron last year is noted. He is reluctant to use more of his secondary to side effects. 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 Treated with androgen deprivation and external beam radiation therapy. Notes slow stream starting early 2021. Rx for tamsulosin provided Jan 2022. Lupron 3 month provided in Apr 2022 caused hot flashes and some gynecomastia. PSA Results: Lab Results Component Value Date/Time PSA - [facility] 0.14 10/29/2022 10:33 AM PSA - [facility] 6.29 (H) 06/14/2022 12:46 PM PSA - [facility] 7.65 (H) 01/29/2022 09:48 AM PSA - [facility] 0.06 05/29/2020 01:32 PM PSA - [facility] 0.07 05/01/2020 08:15 AM PSA - [facility] 0.10 11/16/2019 08:42 AM PSA SCREENING 4.40 (H) 01/28/2013 08:49 AM PSA SCREENING 2.38 01/15/2011 07:01 AM PSA SCREENING 1.73 01/12/2010 10:34 AM Current Outpatient Medications Medication Sig Dispense [...] 2 Tablets by mouth in the morning. No current facility-administered medications for this visit. Review of patient's allergies indicates: Allergen Reactions Jerod Inhibitors Cough Sulfa Antibiotics Gi upset/diarrhea Social History: Social History Tobacco Use Smoking status: Never Smokeless tobacco: Never Substance Use Topics Alcohol use: Yes Alcohol/week: 0.0 standard drinks Comment: on occasion- not a lot, watches closely Vaping/E-Cigarette Use Vaping/E-Cigarette Use Never User Vaping/E-Cigarette Substances Vaping/E-Cigarette Devices Family History 4 items Mother Cancer Father Heart Disorder Uncle (Unspecified) Heart Disorder Grandfather (Paternal) Heart Disorder Past Surgical History: Procedure Laterality Date COLONOSCOPY, DIAGNOSTIC (RECTUM) 01/13/2018 adenomatous polyp, diverticulosis, repeat 3 yrs/[facility] COMBINED RT & LEFT HEART CATHETERS 12/07/2009 Dilated cardiomyopathywith severe LV dysfunction;systolic hypertnesion; elevated LV pressures; mildMR; 20-30% distal LAD; 30% distal right t coronary IMPACT TOOTH REMOV PART BONY late teens wisdom teeth extraction LEFT VENTRICULAR PACING ELECTRODE, ADD-ON 09/04/2010 CS LEAD PLACEMENT WITH INITIAL DEVICE performed by SABINA ARIZA IV at [facility] NEEDLE/PUNCH BIOPSY OF PROSTATE 06/20/03 Prostate,Needle/Punch Biopsy [...] I51.9 Constitutional: (-) fever and (-) chills Eyes: (+) corrective lenses Cardiovascular: (+) exertional dyspnea Male : see HPI Neurology: (-) negative: no focal neurologic defect Psychiatry: (-) negative: no depression or anxiety Physical Exam Nursing note reviewed. Constitutional: Appearance: Normal appearance. HENT: Head: Normocephalic and atraumatic. Right Ear: External ear normal. Left Ear: External ear normal. Nose: Nose normal. Mouth/Throat: Mouth: Mucous membranes are moist. Cardiovascular: Pulses: Normal pulses. Pulmonary: Effort: Respiratory distress (mild SOB) present. Abdominal: Palpations: Abdomen is soft. Tenderness: There is no abdominal tenderness. Musculoskeletal: Cervical back: Normal range of motion and neck supple. Lymphadenopathy: Cervical: No cervical adenopathy. Skin: Coloration: Skin is not cyanotic or pale. Neurological: Mental Status: He is alert and oriented to person, place, and time. Motor: No weakness. Psychiatric: Attention and Perception: Attention normal. Mood and Affect: Mood and affect normal. Behavior: Behavior normal. Impression/Plan: 77 yo male with recurrent PSA on intermittent ADT for CAP, recurrent LUTS. Will inquire regarding restarting tamsulosin with cardiology. Finasteride less likely to be effective in the context of the patient's prostate malignancy and androgen deprivation. If this is contraindicated, patient is a poor candidate for surgical intervention for his voiding symptoms. Will recheck a PSA in 4 months. Principles of intermittent androgen deprivation reviewed. Patient remains reluctant to consider therapy even if needed to avoid progression of his malignancy. Risk of malignant progression with significant morbidity and associated mortality are reviewed. Will discuss further in 4 months time depending on PSA value. Above content is personally reviewed. Patient vocalizes good understanding of the treatment plan. Alli Page MD 12:48 PM 01/08/2023 documented in this encounter Nursing Notes * Priya Ray LPN - 01/08/2023 3:42 PM EDT Pt presents in office for 4 month ret for prostaste cancer. Last lupron given 05/29/22 (3 month). C/o - slow stream, nocturia x 2-3 PSA Results: Lab Results Component Value Date/Time PSA - [facility] 0.14 10/29/2022 10:33 AM PSA - [facility] 6.29 (H) 06/14/2022 12:46 PM PSA - [facility] 7.65 (H) 01/29/2022 09:48 AM PSA - [facility] 0.06 05/29/2020 01:32 PM PSA - [facility] 0.07 05/01/2020 08:15 AM PSA - [facility] 0.10 11/16/2019 08:42 AM PSA SCREENING 4.40 (H) 01/28/2013 08:49 AM PSA SCREENING 2.38 01/15/2011 07:01 AM PSA SCREENING 1.73 01/12/2010 10:34 AM documented in this encounter Plan of Treatment Upcoming Encounters Date Type Specialty Care Team Description 01/22/2023 [facility]agulation [facility] [place] [address] 01/27/2023 Cardiac Studies Cardiology Chino Rivas [facility] [place] [address] 02/07/2023 Office Visit Family Medicine Mira Jordan MD [address] [place] [address] [place] [address] 02/24/2023 Office Visit Nephrology Tip Bergman MD [address] [place] [address] 05/02/2023 Office Visit Family Medicine Lui Park DO [address] [place] [address] [place] [address] 05/28/2023 Office Visit Urology Alli Page MD 27 [facility] 270 [place] [address] 06/20/2023 Office Visit Cardiology Lauro Thompson PA-C [address] [place] [address] 09/10/2023 Laboratory Laboratory [facility] [place] [facility] [place] [address] 09/22/2023 Office Visit Hematology Oncology Lamar Quintero MD [address] [place] [address] Scheduled Orders Name Type Priority Associated Diagnoses Orde r Schedule PSA Lab Routine Prostate cancer (HCC) Rising PSA following treatment for malignant neoplasm of prostate Expected: 02/24/2023, Expires: 01/09/2024 Health Maintenance Due Date Last Done Comments [...] following treatment for malignant neoplasm of prostate documented in this encounter Advance Directives Documents on File Type Date Recorded Patient French Lecturer Expl anation Advance Directives and Living Will 02/04/2019 ADVANCE DIRECTIVE / LIVING WILL Power of Senior Market Intelligence Consultant 02/04/2019 POWER OF A TTORNEY Latest [...] the patient have Health Care Power of Senior Market Intelligence Consultant? No Care Teams Inspector Handbag Frames Relationship Specialty Start Date End Date Lui Park, [address] [place] [address] PCP - General Internal Medicine 02/10/17 documented as of this encounter
--- OUTSIDE RECORDS SUMMARY | 2023-06-22 18:24 | External Medical Summary ---
Author Name UNSPECIFIED Address Unknown Organization [facility] History of Encounters Reason for Assessment: Discharge from [facility] Inpatient Facility where the patient been admitted: No inpatient facility admission Discharge Disposition: Patient remained in the community (without formal assistive services) Functional Assessment When Dyspneic: With moderate exerti on (e.g., while dressing, using commode or bedpan, walking distances less than 20 feet) Bowel Incontinence Frequency: Very rarel y or never has bowel incontinence Cognitive and Behavioral and Psychiatric Symptoms: None Current Ability: Ambulation: With the us e of a one-handed device (e.g. cane, single crutch, isela-walker), able to independently walk on even and uneven surfaces and negotiate stairs with or without railings. Current: Management Of Oral Medications: Able to independently take the correct oral medication(s) and proper dosage(s) at the correct time
--- OUTSIDE RECORDS SUMMARY | 2023-06-22 18:24 | External Medical Summary | Summary of Care ---
Author Name Unknown Organization [facility] Address [address] [facility] [address] Phone [phone] Care Team Providers Care Pharmacognosist Name Role Phone SonIoana Primary Care Provider [phone] Reason for Visit * Reason Comments No Show Appointment Encounter Details Date Type Department Care Team Description 02/05/2023 Anticoagulation Pharmacy, [facility] [address] [facility] [place] [address] [facility] [address] [facility] [place] [address] 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* Allergies Active Allergy Reactions Severity Noted Date Comments Jerod Inhibitors Cough 12/12/2009 Sulfa Antibiotics 06/08/1999 Gi upset/diarrhea Tamsulosin Medium 01/28/2023 Lightheaded/dizzy, insomnia documented as of this encounter (statuses as of 02/05/2023) Medications Medication Sig Dispensed Refills Start Date [...] as of this encounter (statuses as of 02/05/2023) Active Problems Problem Noted Date Atypical atrial [...] as of this encounter (statuses as of 02/05/2023) Resolved Problems Problem Noted Date Resolved Date [...] 01/17/2012 10/10/2017 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 12/28/2010 01/16/2017 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 Family history of other cardiovascular diseases 07/26/2008 Overview: ICD-10 update of inactive term documented as of this encounter (statuses as of 02/05/2023) Immunizations Name Administration Dates Next Due COVID-19 [...] as of this encounter Progress Notes * Lay Calderon, campaign management senior manager - 02/05/2023 8:18 AM EDT Patient Phone Numbers Spoke with patient to schedule [facility] appointment for coag management. Appointment scheduled as notedbelow. 02/06/2023 Thank you, Lay Calderon Pharmacology Professor [facility]) 02/05/2023,8:18 AM documented in this encounter Plan of Treatment Upcoming Encounters Date Type Specialty Care Team Description 02/06/2023 Anticoagulation Pharmacy [facility] [address] [facility] [place] [address] 02/07/2023 Office Visit Family Medicine Mira Jordan MD [address] [place] [address] [place] [address] 02/24/2023 Office Visit Nephrology Tip Bergman MD [address] [place] [address] 05/02/2023 Office Visit Family Medicine Ioana Son DO [address] [place] [address] [place] [address] 05/28/2023 Office Visit Urology Alli Page MD [address] [place] [address] 06/20/2023 Office Visit Cardiology Lauro Thompson PA-C [address] [place] [address] 08/18/2023 Cardiac Studies Cardiology Chino Rivas [facility] [address] [place] [address] 09/10/2023 Laboratory Laboratory [facility] [address] [place] [address] 09/22/2023 Office Visit Hematology Oncology Lamar Quintero MD [address] [place] [address] Health Maintenance Due Date Last Done Comments [...] as of this encounter Visit Diagnoses Diagnosis 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- Primary Encounter for therapeutic drug monitoring documented in this encounter Advance Directives Documents on File Type Date Recorded Patient Associate Programmer Expl anation Advance Directives and Living Will 02/04/2019 ADVANCE DIRECTIVE / LIVING WILL Power of Wire Fence Erector 02/04/2019 POWER OF A TTORNEY Latest Code [...] the patient have Health Care Power of Wire Fence Erector? No Care Teams Pharmacognosist Relationship Specialty Start Date End Date Ioana Son, [address] [place] [address] PCP - General Internal Medicine 02/10/17 documented as of this encounter
--- OUTSIDE RECORDS SUMMARY | 2023-06-22 18:24 | External Medical Summary ---
Author Name Unknown Address Unknown Organization [facility] [address] [place] [address] Laboratory Report Ordering Provider Test Date Status YANN SCHWARZ 01/22/2023 08:12:41 Final Therapeutic ranges for non-o perative patients:
Prophylaxsis/treatment of DVT: (Range:2.0-3.0)
Treatment of pulmonary embolism:(Range:2.0-3.0)
Prevention of systemic embolism from:
-tissue heart valves
-acute myocardial infarction
-valvular heart disease
-atrial fibrillation
(Range: 2.0-3.0)
Mechanical prosthetic valves: (Range: 2.5-3.5) Observation Date Value Abnormality Reference (Units ) Status INR in Capillary blood by Coagulation assay 01/22/2023 08:12:41 4.1 (INR) Final Performing Location [facility] - [address] [place] [address]
--- OUTSIDE RECORDS SUMMARY | 2023-06-22 18:24 | External Medical Summary | Summary of Care ---
Author Name Unknown Organization [facility] Address [address] [place] [address] Phone [phone] Care Team Providers Care Phlebotomy Coordinator Name Role Phone SonIoana wall Primary Care Provider [phone] Reason for Visit * Reason Comments Defibrillator Clinic Encounter Details Date Type Department Care Team Description 01/27/2023 Cardiac Studies Cardiology, [facility] 132 [place] [address] [place], [facility] 132 [place] [address] Non-ischemic cardiomyopathy (HCC)*; Paroxysmal atrial fibrillation (HCC); Sustained VT (ventricular tachycardia) (HCC); Biventricular implantable cardioverter-defibrilla tor in situ; Ventricular fibrillation (HCC) Allergies Active Allergy Reactions Severity [...] encounter 12/28/2010 01/16/2017 alf current use of 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 therapy 0 12/28/2010 [...] as of this encounter Progress Notes * Valente Hall MD - 01/27/2023 1:11 PM EDT Patient seen in conjunction with pacemaker clinic visit. Patient recently more breathless. EKG and pacemaker interrogation finds patient in atrial flutter with pacemaker defibrillator tracking upper limits of device at 120 beats per minute Device reprogrammed to DDIR * MAHESH Amaya - 01/27/2023 10:05 AM EDT In office device check and Medtr[employer] ICD reprogramming pe performed. Providers see scanned report in scans tab. Med[employer] ICD Advisory reprogramming to B>AX already completed.Changed to DDIR per Dr. Hall with him present during device check due to the device tracking rate with atrial flutter. Return in 6 Months for an DC visit. Tech: Rakesh Rush Merit System Director: Dr. Hall documented in this encounter Procedure Notes * Valente Hall MD - 01/27/2023 10:27 AM EDTAssociated Order(s): EKG REASON FOR STUDY: symptoms CONCLUSIONS: Atrial-sensed ventricular-paced rhythm , Atrial flutter Abnormal ECG When compared with ECG of 05-DEC-2022 11:52, Vent. rate has decreased BY 9 BPM Ventricular Rate: 118 Atrial Rate: 118 [place] Interval: 194 QRS Duration: 146 QT/QTc: 262/367 ms P-R-T [place]: 84 : 153 : 248 degrees documented in this encounter Plan of Treatment Upcoming Encounters Date Type Specialty Care Team Description 01/29/2023 Anticoagulation Pharmacy [facility] [address] [facility] [place] [address] 02/07/2023 Office Visit Family Medicine Mira Jordan MD [address] [place] [address] [place] [address] 02/24/2023 Office Visit Nephrology Tip Bergman MD 200 [facility] [place], [place] [address] 05/02/2023 Office Visit Family Medicine Ioana Son, [address] [place] [address] 05/28/2023 Office Visit Urology Alli Page MD [address] [place] [address] 06/20/2023 Office Visit Cardiology Lauro Thompson PA-C 132 [place] [address] 08/18/2023 Cardiac Studies Cardiology Rob, Pacer Clinic [facility] 132 [place] [address] 09/10/2023 Laboratory Laboratory [facility] 132 [place] [address] 09/22/2023 Office Visit Hematology Oncology Lamar Quintero MD [address] [facility] [place] [address] Scheduled Orders Name Type Priority Associated Diagnoses Orde r Schedule MULTI-LEAD DEFIBRILLATOR + REPROGRAM Procedures Routine Non-ischemic cardiomyopathy (HCC) Paroxysmal atrial fibrillation (HCC) Sustained VT (ventricular tachycardia) (HCC) Biventricular implantable cardioverter-defibrillat or in situ Ventricular fibrillation (HCC) Ordered: 01/27/2023 Health Maintenance Due Date Last Done Comments [...] Procedure Name Priority Date/Time Associated Diagnosis Comments WY ECG ROUTINE ECG W/LEAST 12 LDS W/I&R Routine 01/27/2023 10:27 AM EDT Non-ischemic cardiomyopathy (HCC) Paroxysmal atrial fibrillation (HCC) Sustained VT (ventricular tachycardia) (HCC) Biventricular implantable cardioverter-defibrill ator in situ Ventricular fibrillation (HCC) documented in this encounter Results * EKG (01/27/2023 10:27 AM EDT) 01/27/2023 10:2 7 AM EDT Procedure Note Valente Hall MD - 01/27/2023 10:27 AM EDT REASON FOR STUDY: symptoms CONCLUSIONS: Atrial-sensed ventricular-paced rhythm , Atrial flutter Abnormal ECG When compared with ECG of 05-DEC-2022 11:52, Vent. rate has decreased BY 9 BPM Ventricular Rate: 118 Atrial Rate: 118 [place] Interval: 194 QRS Duration: 146 QT/QTc: 262/367 ms P-R-T [place]: 84 : 153 : 248 degrees Valente Hall MD EKG [facility] documented in this encounter Visit Diagnoses Diagnosis Non-ischemic cardiomyopathy (HCC)- Primary Other primary cardiomyopathies Paroxysmal atrial fibrillation (HCC) Atrial fibrillation Sustained VT (ventricular tachycardia) (HCC) Paroxysmal ventricular tachycardia Biventricular implantable cardioverter-defibrillator in situ Ventricular fibrillation (HCC) Ventricular fibrillation documented in this encounter Advance Directives Documents on File Type Date Recorded Patient Stone Mason Expl anation Advance Directives and Living Will 02/04/2019 ADVANCE DIRECTIVE / LIVING WILL Power of Baker Doughnut 02/04/2019 POWER OF A TTORNEY Latest Code [...] the patient have Health Care Power of Baker Doughnut? No Care Teams Phlebotomy Coordinator Relationship Specialty Start Date End Date Ioana Son, [address] [place] [address] PCP - General Internal Medicine 02/10/17 documented as of this encounter
--- OUTSIDE RECORDS SUMMARY | 2023-06-22 18:24 | External Medical Summary ---
Author Name Unknown Address Unknown Organization [facility] - [address] [place] [address] Laboratory Report Ordering Provider Test Date Status YANN SCHWARZ 01/08/2023 15:23:07 Final Therapeutic ranges for non-o perative patients:
Prophylaxsis/treatment of DVT: (Range:2.0-3.0)
Treatment of pulmonary embolism:(Range:2.0-3.0)
Prevention of systemic embolism from:
-tissue heart valves
-acute myocardial infarction
-valvular heart disease
-atrial fibrillation
(Range: 2.0-3.0)
Mechanical prosthetic valves: (Range: 2.5-3.5) Observation Date Value Abnormality Reference (Units ) Status INR in Capillary blood by Coagulation assay 01/08/2023 15:23:07 1.7 (INR) Final Performing Location [facility] [place] [address]
--- OUTSIDE RECORDS SUMMARY | 2023-06-22 18:24 | External Medical Summary | Summary of Care ---
Author Name Unknown Organization [facility] Address [address] [facility] [address] Phone [phone] Care Team Providers Care It Operations Manager Name Role Phone SonIoana wall Primary Care Provider [phone] Reason for Visit * Reason Comments Dosage Adjustment In Person (Anticoag Cl inic) Encounter Details Date Type Department Care Team Description 01/22/2023 Anticoagulation Pharmacy, [facility] 132 [facility] [place] [address] [facility] 132 [facility] [place] [address] Apical mural thrombus*; 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; ad 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 Allergies Active Allergy Reactions Severity Noted Date Comments Jerod Inhibitors Cough 12/12/2009 Sulfa Antibiotics 06/08/1999 Gi upset/diarrhea documented as of this encounter (statuses as of 01/22/2023) Medications Medication Sig Dispensed Refills Start Date [...] as of this encounter (statuses as of 01/22/2023) Active Problems Problem Noted Date Atypical atrial [...] as of this encounter (statuses as of 01/22/2023) Resolved Problems Problem Noted Date Resolved Date [...] as of this encounter (statuses as of 01/22/2023) Immunizations Name Administration Dates Next Due COVID-19 [...] this encounter Progress Notes * Agnes Wheeler, [facility] - 01/22/2023 8:07 AM EDT Images from the original note were not included. Medication Therapy Disease Management - Anticoagulation Patient: Celso Grant : 1945 Current Warfarin Dose As of 01/22/2023 Warfarin maintenance plan: 2.5 mg (2.5 mg x 1) every Mon, Karely; 1.25 mg (2.5 mg x 0.5) all other days Patient-Reported Symptoms: Patient Findings Positives: Change in diet/appetite (Less vegetables since last visit, educated on vitamin K foods) Negatives: Signs/symptoms of thrombosis, Signs/symptoms of bleeding, Change in health, Change in alcohol use, Change in activity, Upcoming invasive procedure, Missed doses, Extra doses, Change in medications, Bruising INR Result As of 01/22/2023 INR goal: 2.0-3.0 INR used for dosin.1 (01/22/2023) Warfarin Plan As of 01/22/2023 Full warfarin instructions: 01/22: Hold; 01/23: Hold; Otherwise 2.5 mg every Mon, Karely; 1.25 mg all other days Next INR check: 01/29/2023 Additional Dosing Information: Description Patient has 1mg, 2.5mg, 5mg and 6mg tablets Repeat PT/INR in 1 week(s) Weekly dose: decreased Izaiah Berger, Sarah Clinical Pharmacist Medication Therapy Management Clinic 01/22/2023 9:05 AM Agnes Wheeler RP Clinical Pharmacist 01/22/2023, 8:31 AM documented in this encounter Plan of Treatment Upcoming Encounters Date Type Specialty Care Team Description 01/27/2023 Cardiac Studies Cardiology [place], [facility]er [facility] 132 [place] [address] 01/29/2023 Anticoagulation Pharmacy [facility] [address] [place] [address] 02/07/2023 Office Visit Family Medicine Mira Jordan MD [address] [place] [address] [place] [id number] 02/24/2023 Office Visit Nephrology Tip Bergman MD [address] [place] [address] 05/02/2023 Office Visit Family Medicine Ioana Son, [address] [place] [address] 05/28/2023 Office Visit Urology Alli Page MD [address] [place] [address] 06/20/2023 Office Visit Cardiology Lauro Thompson PA-C [address] [facility] [place] [address] 09/10/2023 Laboratory [facility] [address] [facility] [address] 09/22/2023 Office Visit Hematology Oncology Lamar Quintero MD [address] [place] [address] Health Maintenance Due Date Last Done Comments [...] Comments INR FINGERSTICK, POINT OF CARE STAT 01/22/2023 8:12 AM EDT 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 ad 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 documented in this encounter Results * INR FINGERSTICK, POINT OF CARE (01/22/2023 8:12 AM EDT) Fingerstick INR 4.1 INR 9:16 AM EDT [facility] 57[address]10 Blood 01/22/2023 8:12 AM EDT 01/22/2023 9:16 AM EDT Narrative [facility] - 01/22/2023 9:16 AM EDT Therapeutic ranges for non-operative patients: Prophylaxsis/treatment of DVT: (Range:2.0-3.0) Treatment of pulmonary embolism:(Range:2.0-3.0) Prevention of systemic embolism from: -tissue heart valves -acute myocardial infarction -valvular heart disease -atrial fibrillation (Range: 2.0-3.0) Mechanical prosthetic valves: (Range: 2.5-3.5) Agnes Wheeler [facility] LAB POINT OF C ARE TEST DOCKED DEVICE UNSOLICITED RESULTS [facility] [address] [place] [address] documented in this encounter Visit Diagnoses Diagnosis Apical mural thrombus- Primary Acute myocardial infarction of other anterior wall, episode of care unspecified 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 Encounter for therapeutic drug monitoring alf current use of 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 therapy documented in this encounter Advance Directives Documents on File Type Date Recorded Patient Writer Expl anation Advance Directives and Living Will 02/04/2019 ADVANCE DIRECTIVE / LIVING WILL Power of Dental Claims Processor 02/04/2019 POWER OF A TTORNEY Latest Code [...] patient have Health Care Power of Dental Claims Processor? No Care Teams It Operations Manager Relationship Specialty Start Date End Date Ioana Son, [address] [place] [address] PCP - General Internal Medicine 02/10/17 documented as of this encounter
--- OUTSIDE RECORDS SUMMARY | 2023-06-22 18:24 | External Medical Summary | Summary of Care ---
Author Name Unknown Organization [facility] Address [address] [facility] [place] [address] Phone [phone] Care Team Providers Care Relief Mate Name Role Phone Ioana Son Primary Care Provider [phone] Reason for Visit * Reason Comments Hospital Follow-Up [facility] 12/11-12/14/22 an d 12/05-12/08/22 Follow Up 6 week follow up. So me minor edema. SOB ongoing but not as bas as it was. Denies chest pain, palpitations and dizziness. Encounter Details Date Type Department Care Team Description 01/03/2023 Office Visit Cardiology, [facility] [address] [place] [address] Lauro Thompson PA-C [address] [place] [address] Hospital discharge follow-up*; Paroxysmal atrial fibrillation (HCC); Secondary hyperparathyroidism of renal origin (HCC); Kidney disease, chronic, stage IV (GFR 15-29 ml/min) (HCC); Non-ischemic cardiomyopathy (HCC); LV (left ventricular) mural thrombus; Atypical atrial flutter (HCC); Severe left ventricular systolic dysfunction Allergies Active Allergy Reactions Severity Noted Date Comments Jerod Inhibitors Cough 12/12/2009 Sulfa Antibiotics 06/08/1999 Gi upset/diarrhea documented as of this encounter (statuses as of 01/06/2023) Medications Medication Sig Dispensed Refills Start Date [...] ER 20 MEQ Oral Tablet Extended ReleaseIndications: Hypertensive heart and kidney disease with chronic [...] mouth in the morning. 0 01/03/2023 Active Allopurinol 300 MG Oral Tablet (Zyloprim) Take 1 Tablet by mouth in the morning. 90 Tablet 1 10/30/2022 01/04/20 23 Discontinued Furosemide 40 MG Oral Tablet (Lasix) Take 2 Tablets by mouth. 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 Family history of other cardiovascular diseases 07/26/2008 Overview: ICD-10 update of inactive term documented as of this encounter (statuses as of 01/06/2023) Immunizations Name Administration Dates Next Due COVID-19 [...] Sign Reading Time Taken Comments Blood Pressure 110/68 01/03/2023 2:47 PM EDT Pulse 76 01/03/2023 2:47 PM EDT Temperature - - Respiratory Rate 18 01/03/2023 2:47 PM EDT Oxygen Saturation - - Inhaled Oxygen Concentration - - Weight 113.7 kg (250 lb 12 oz) 01/03/2023 2:47 P M EDT Height - - Body Mass Index 34.01 12/23/2022 1:02 PM EDT documented in this encounter Progress Notes * Lauro Thompson PA-C - 01/03/2023 2:58 PM EDT History of Present Illness: Celso Grant is a 77 year old male who returns today for cardiology follow-up. Interim hospitalizations noted and reviewed. Admitted to [facility] x 2, with acute on chronic heart failure with recurrent reduced ejection fraction.EF 30% via December 05, 2022 echocardiography which also revealed a moderate size apical thrombus. + Atypical atrial flutter with rapid ventricular response. Pacemaker defibrillator reprogrammed to DDIR mode at 80 bpm. Lovenox transition to Coumadin. Labs and medical therapy likely exacerbating above. Chavo joyner did not feel torsemide at 100 mg/day was as effective as furosemide though it is unclear if the patient was actually taking torsemide or not. Not felt to be a candidate for ACEI/ARB/Entresto/Aldactone/Inspra. Patient returns today feeling relatively well. Notes minor edema as well as ongoing shortness of breath. Overall, things are better than when discharged. No chest pain. No palpitations. No device alarms or discharges. No cough. No chest congestion. No orthopnea. No PND. No abdominal bloating. No penile/scrotal edema. No dizziness or lightheadedness. No near syncope or syncope. No melena or hematochezia. No hematuria or dysuria. No tremor. Appetite is good. Notes going to the [employer] for breakfast to mornings per week, attempting to restrict sodium intake. Labs obtained post hospitalization including blood count and metabolic panel with repeat metabolic panel to be obtained today. Patient Active Problem List Diagnosis Code Non-ischemic [...] cancer (HCC) C61 Apical mural thrombus I51.3 Past Medical History: Diagnosis Date Acute pyelonephritis Prostate cancer (HCC) 08/02/2013 Past Surgical History: Procedure Laterality Date COLONOSCOPY, DIAGNOSTIC (RECTUM) 01/13/2018 adenomatous polyp, diverticulosis, repeat 3 yrs/[facility] COMBINED RT & LEFT HEART CATHETERS 12/07/2009 Dilated cardiomyopathywith severe LV dysfunction;systolic hypertnesion; elevated LV pressures; mildMR; 20-30% distal LAD; 30% distal right t coronary IMPACT TOOTH REMOV PART BONY late teens wisdom teeth extraction LEFT VENTRICULAR PACING ELECTRODE, ADD-ON 09/04/2010 CS LEAD PLACEMENT WITH INITIAL DEVICE performed by SABINA ARIZA IV at [facility] NEEDLE/PUNCH BIOPSY OF PROSTATE 06/20/03 Prostate,Needle/Punch Biopsy NEEDLE/PUNCH BIOPSY OF PROSTATE 03/12/04 Prostate,Needle/Punch Biopsy NEEDLE/PUNCH BIOPSY OF PROSTATE 03-15-2013 Prostate,Needle/Punch Biopsy REMOVE TONSILS & ADENOIDS, UNDER 12 1950 T&A VASC DUPLEX AORTA, IVC, ILIAC- LMTD 01/29 Normal abd.aorta and iliac artery duplex study Family History Problem Relation Age of Onset Cancer Mother age 65- brain cancer Heart Disorder Father age 73- MS Heart Disorder Uncle (Unspecified) p. 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 Drug use: No Sexual activity: Yes Complete Review of Systems is as stated above, negative, or noncontributory. Review of patient's allergies indicates: Allergen Reactions Jerod Inhibitors Cough Sulfa Antibiotics Gi upset/diarrhea Outpatient Medications Marked as Taking for the 01/03/23 encounter (Office Visit) with Lauro Thompson PA-C Medication Sig Allopurinol 100 MG Oral Tablet (Zyloprim) Take 2 Tablets by mouth in the morning. Furosemide 40 MG Oral Tablet (Lasix) Take 2 Tablets by mouth 2 times a day. Warfarin Sodium 6 MG Oral Tablet (Coumadin) 6 MG ORALLY DAILY AT 4PM Potassium Chloride Monse ER 20 MEQ Oral Tablet Extended Release Take 2 Tablets by mouth in the morning and 2 Tablets before bedtime. Levothyroxine Sodium 50 MCG Oral Tablet (Levoxyl) Take by mouth 1 Tablet in the morning. (30 min prior to breakfast or other meds). Amiodarone HCl 200 MG Oral Tablet (Cordarone) TAKE 1 TABLET BY MOUTH TWICE A DAY Metoprolol Succinate ER 50 MG Oral Tablet Extended Release 24 Hour (Toprol XL) Take by mouth 1 Tablet in the morning AND 1 Tablet before bedtime. CENTRUM SILVER PO TABS one tablet daily ASPIRIN 81 MG PO CHEW One pill by mouth once a day with food PHYSICAL EXAMINATION: BP 110/68 | Pulse 76 | Resp 18 | Wt 113.7 kg (250 lb 12 oz) | BMI 34.01 kg/m | BSA 2.4 m General: A&Ox3. NAD. HENT: Normocephalic. Atraumatic. Eyes: PER. Conjunctiva pink, sclera clear. Neck: No carotid bruits. No overt JVD. Heart: RRR, 80 bpm. Soft systolic murmur. No diastolic murmur. No rub. Lungs: Diminished at the bases however clear to auscultation. Abdomen: +BS. Distended.NO organomegaly. Extremities: 1+ lower extremity edema. No clubbing. No cyanosis. Limited neurological examination is without focal deficits. Pulses: radial=2/4, posterior tibial=1/4. Data: January 31, 2022 TTE interpretation summary ([facility], Dr. Zambrano): The left ventricle is normal in size. There is normal left ventricular wall thickness. Left ventricular systolic function is normal. Ejection fraction 55 to 60%. The right ventricular systolic function is normal. The left atrium is mildlydilated. The right atrial size is normal. There was moderate mitral regurgitation. December 05, 2022 TTE interpretation summary ([facility]): Mild aortic valve sclerosis without significant stenosis. Moderately dilated left ventricle. Mild concentric LVH. Inferior wall is severely hypokinetic. All other wall segments are moderately hypokinetic in a diffuse manner. Ejection fraction 30%. Moderate size apical thrombus. Severely dilated left atrium. Dilated mitral valve annulus. Moderate to severe mitral regurgitation. Moderate tricuspid regurgitation. December 05, 2022 device interrogation ([facility]): Remaining longevity: 7.2 years. Thirty episodes of AT/AF, longest lasting 52 minutes. No VT or VF. Bi V paced 97.9%. ASSESSMENT: 1. Dilated nonischemic cardiomyopathy with severe LV dysfunction initially diagnosed in October 2009, with transient recovery in LV systolic function. 2. Hospitalizations to [facility] x 2 in November 2022 with acute decompensated congestive heart failure. 1. EF 30% via December 05, 2022 TTE. 2. + Moderate size apical thrombus. 3. + Atypical atrial flutter with rapid ventricular response 3. Acceptably mildly decompensated right greater than left biventricular congestive heart failure signs and symptoms. 4. Hospitalization in January 2022 with acute on chronic renal dysfunction, hypokalemia, over diuresis following initiation and titration of metolazone. Metolazone and Lisinopril discontinued at that time. 5. Status post biventricular pacemaker defibrillator implantation on 09/04/2010 1. Status post generator replacement on October 28, 2014. 2. Status post July 09, 2022 generator change with a [employer] MRI WILDLIFE REFUGE SPECIALIST-D SureScan [id number], Serial Number [id number]. 6. Ventricular tachycardia status post appropriate device discharges, initiation of Amiodarone 2019 7. Hospitalization July 01, 2020 to July 02, 2020 with undefined rectal bleeding, symptomatic anemia requiring transfusion of 2 units packed red blood cells. Anticoagulation (Coumadin) held. Endoscopy declined. 8. Paroxysmal atrial fibrillation and atypical atrial flutter as above. 9. Frequent ventricular ectopy with resultant past reduction in biventricular pacemaker function 10. Chart history of MGUS and iron deficiency anemia 11. Stage IV chronic kidney disease 12. Hypertension 13. Dyslipidemia. Statin previously stopped due to myalgias and arthralgias, abnormal LFTs, and theneed for amiodarone. 14. History of gout 15. History of prostate carcinoma status post radiation therapy 16. Prediabetes. 17. ? Dementia Options of management discussed with patient. Plan as outlined below. RECOMMENDATIONS/PLAN: Sodium restriction, CHF tools discussed. Patient to monitor weight daily, taking an additional 40 mg of furosemide if weight is up 2 lb overnight or 5 lb in one week. Cardiologyfollow-up in 2-3 months or as needed. ER with emergencies. Lauro Thompson PA-C Department of Cardiology I spent a total of 30-39 minutes (exact time 39 mins) on the date of service in preparation, delivery, and documentation of the care provided to Celso Grant excluding any time spent in the performance of separately billed services. This chart was completed in part utilizing [employer] Speech Voice Recognition Software. Grammatical errors, random word insertions, prounoun errors, and incomplete sentences are an occasional consequence of this system due to software limitations, ambient noise, and hardware issues. Any formal questions or concerns about the content, text, or information contained within the body of this dictation should be directly addressed to the provider for clarification. documented in this encounter Nursing Notes * Shady Samuels LPN - 01/03/2023 2:39 PM EDT Patient identified by full name and date of Chief Complaint Patient presents with Hospital Follow-Up [facility] 12/11-12/14/22 and 12/05-12/08/22 Follow Up 6 week follow up. Some minor edema. SOB ongoing but not as bas as it was. Denies chest pain, palpitations and dizziness. Examination Room: 2 Name: Celso Grant Date of : (1945). Reason for Visit: HD/6 week follow up Interim Hospitalization(s): [facility] 12/11-12/14/22 and 12/05-12/08/22 Problems/Concerns: See chief complaint Chest Pain/SOB: See chief complaint [facility] Discussed: Not applicable [facility] is a way you can talk to your provider online through e-mail. Would you like to sign up? I can activate it for you? DECLINES Patient was instructed to not get up on the exam table until directed and assisted by their provider; patient is to remain seated in the chair/ wheelchair/ exam table for fall prevention and safety reasons. Patient is aware to have assistance to step down off exam table with personnel. Patient voiced full comprehension of instructions. documented in this encounter Plan of Treatment Upcoming Encounters Date Type Specialty Care Team Description 01/08/2023 Anticoagulation Pharmacy [facility] [address] [facility] [place] [id number] 01/08/2023 Office Visit Urology Alli Page MD [address] [facility] [address] [place] [address] 01/27/2023 Cardiac Studies Cardiology Chino Rivas [facility] [address] [place] [address] 02/07/2023 Office Visit Family Medicine Mira Jordan MD [address] [facility] [place] [address] 02/24/2023 Office Visit [facility]phrology [facility] [address] [facility] [address] 05/02/2023 Office Visit Family Medicine Ioana Son DO [address] [facility] [place] [address] 06/20/2023 Office Visit Cardiology Lauro Thompson PA-C [address] [place] [address] 09/10/[address] [facility] [address] [facility] [place] [address] 09/22/2023 Office Visit Hematology Oncology Lamar Quintero MD [address] [place] [place] [address] Health Maintenance Due Date Last Done Comments [...] as of this encounter Visit Diagnoses Diagnosis Hospital discharge follow-up- Primary Other follow-up examination Paroxysmal atrial fibrillation (HCC) Atrial fibrillation Secondary hyperparathyroidism of renal origin (HCC) Secondary hyperparathyroidism (of renal origin) Kidney disease, chronic, stage IV (GFR 15-29 ml/min) (HCC) Chronic kidney disease, Stage IV (severe) Non-ischemic cardiomyopathy (HCC) Other primary cardiomyopathies LV (left ventricular) mural thrombus Acute myocardial infarction, unspecified site, episode of care unspecified Atypical atrial flutter (HCC) Atrial flutter Severe left ventricular systolic dysfunction Heart disease, unspecified documented in this encounter Advance Directives Documents on File Type Date Recorded Patient Digital Forensics Examiner Expl anation Advance Directives and Living Will 02/04/2019 ADVANCE DIRECTIVE / LIVING WILL Power of Apartment Maintenance 02/04/2019 POWER OF A TTORNEY Latest Code [...] the patient have Health Care Power of Apartment Maintenance? No Care Teams Relief Mate Relationship Specialty Start Date End Date Ioana Son, [address] [place] [address] PCP - General Internal Medicine 02/10/17 documented as of this encounter"
--- OUTSIDE RECORDS SUMMARY | 2023-06-22 18:24 | External Medical Summary | Summary of Care ---
Author Name Unknown Organization [facility] Address [address] [place] [place] [address] Phone [phone] Care Team Providers Care Telehealth Director Name Role Phone SonIoana wall Primary Care Provider [phone] Reason for Visit * Reason Onset Date Comments Appointment 01/08/2023 Encounter Details Date Type Department Care Team Description 01/08/2023 Telephone Urology Wes Howard [address] [place] [address] [place] [address] Alli Page MD [address] [place] [address] [place] [address] Appointment Allergies Active Allergy Reactions Severity Noted [...] 01/17/2012 10/10/2017 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 12/28/2010 01/16/2017 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 * Telephone Encounter - Leticia Lewis - 01/08/2023 4:06 PM EDT Follow-up Disp: Return in about 4 months (around 05/11/2023). Check-out Comments: With PSA Alfredo is requesting new appointment to be mail to him. Thank you! documented in this encounter Plan of Treatment Upcoming Encounters Date Type Specialty Care Team Description 01/22/2023 Anticoagulation Pharmacy [facility] [address] [place] [address] 01/27/2023 Cardiac Studies Cardiology Chino Rivas [facility] [address] [place] [address] 02/07/2023 Office Visit Family Medicine Mira Jordan MD [address] [place] [address] [place] [address] 02/24/2023 Office Visit Nephrology Tip Bergman MD [address] [place] [address] 05/02/2023 Office Visit Family Medicine Ioana Son DO [address] [place] [address] [place] [address] 05/28/2023 Office Visit Urology Alli Page MD [address] [place] [address] [place] [address] 06/20/2023 Office Visit Cardiology Lauro Thompson PA-C [address] [place] [address] 09/10/2023 Laboratory Laboratory [facility] [address] [address] 09/22/2023 Office Visit Hematology Oncology [facility] [address] [facility] [address] Health Maintenance Due Date Last Done Comments [...] Documents on File Type Date Recorded Patient Waterworks Operator Expl anation Advance Directives and Living Will 02/04/2019 ADVANCE DIRECTIVE / LIVING WILL Power of Donor Floor Technician 02/04/2019 POWER OF A TTORNEY Latest [...] the patient have Health Care Power of Donor Floor Technician? No Care Teams Telehealth Director Relationship Specialty Start Date End Date Ioana Son, [address] [place] [phone] PCP - General Internal Medicine 02/10/17 documented as of this encounter
--- OUTSIDE RECORDS SUMMARY | 2023-06-22 18:24 | External Medical Summary | Summary of Care ---
Author Name Unknown Organization [facility] Address [address] [facility] [place] [address] Phone [phone] Care Team Providers Care Nut Former Name Role Phone Ioana Son Primary Care Provider [phone] Encounter Details Date Type Department Care Team Description 01/28/2023 Result Scan Unspecified Department Valente Hall MD [address] [place] [address] <No scans attached> Allergies Active Allergy Reactions [...] Anticoagulation Pharmacy [facility] [place] [address] [facility] [place] [address] 02/07/2023 Office Visit Family Medicine Mira Jordan MD [address] [facility] [place] [address] 02/24/2023 Office Visit Nephrology Tip Bergman MD [address] [facility] [place] [address] 05/02/2023 Office Visit Family Medicine Ioana Son DO [address] [facility] [place] [address] 05/28/2023 Office Visit Urology Alli Page MD [address] [facility] [address] [place] [address] 06/20/2023 Office Visit Cardiology Lauro Thompson PA-Mari 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 No Care Teams Nut Former Relationship Specialty Start Date End Date Ioana Son[address] [place] [address] PCP - General Internal Medicine 02/10/17 documented as of this encounter
--- OUTSIDE RECORDS SUMMARY | 2023-06-22 18:25 | External Medical Summary | Summary of Care ---
Author Name Unknown Organization [facility] Address [address] [place] [address] Phone [phone] Care Team Providers Care Compliance Engineer Products Name Role Phone Zoe Sonanda Hamlin Primary Care Provider [phone] Reason for Visit * Reason Comments Outpatient Testing Encounter Details Date Type Department Care Team Description 12/30/2022 Laboratory Laboratory, [facility] [address] [facility] [place] [address] [facility] [address] [facility] [place] [address] HFrEF (heart failure with reduced ejection fraction) ([facility]) Allergies Active Allergy Reactions Severity Noted Date Comments Jerod Inhibitors Cough 12/12/2009 Sulfa Antibiotics 06/08/1999 Gi upset/diarrhea documented as of this encounter (statuses as of 12/30/2022) Medications Medication Sig Dispensed Refills Start Date [...] other meds). 90 Tablet 3 05/02/2022 Active Allopurinol 300 MG Oral Tablet (Zyloprim) Take 1 Tablet by mouth in the morning. 90 Tablet 1 10/30/2022 Active Furosemide 40 MG Oral Tablet (Lasix) Take 2 Tablets by mouth. 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 Family history of other cardiovascular diseases 07/26/2008 Overview: ICD-10 update of inactive term documented as of this encounter (statuses as of 12/30/2022) Immunizations Name Administration Dates Next Due COVID-19 [...] Encounters Date Type Specialty Care Team Description 01/03/2023 Office Visit Cardiology Lauro Thompson PA-C [address] [place] [address] 01/08/2023 [facility] 132 [facility] [place] [address] 01/08/2023 Office Visit Urology Alli Page MD 27 [facility] [address] [place] [id number] 01/27/2023 Cardiac Studies [facility] 132 [facility] [place] [address] 02/07/2023 Office Visit Family Medicine Mira Jordan MD [address] [place] [address] [place] [address] 02/24/2023 Office Visit Nephrology Tip Bergman MD [address] [place] [address] 05/02/2023 Office Visit Family Medicine Ioana Son DO [address] [place] [address] [place] [address] 09/10/2023 Laboratory Laboratory [facility] 132 [facility] [place] [address] 09/22/2023 Office Visit Hematology Oncology Lamar Quintero MD [address] [place] [address] Health Maintenance Due Date Last Done Comments [...] Procedure Name Priority Date/Time Associated Diagnosis Comments BASIC METABOLIC PANEL Routine 12/30/2022 10:03 AM EDT HFrEF (heart failure with reduced ejection fraction) (HCC) documented in this encounter Results * (ABNORMAL) BASIC METABOLIC PANEL (12/30/2022 10:03 AM EDT) BUN 41(H) 6 - 20 mg/dL 12/30/2022 11:20 AM EDT [facility] Creatinine 2.7(H) 0.6 - 1.2 mg/dL 12/30/2022 11:20 AM EDT [facility] Estimated Glomerular Filtration Rate 24(L) >=60 mL/min 12/30/2022 11:20 AM EDT [facility] Comment:eGFR is calculated b ased on the CKD-EPI 2020 equation Sodium 143 135 - 146 mmol/L 12/30/2022 11:20 AM EDT [facility] Potassium 4.5 3.5 - 5.1 mmol/L 12/30/2022 11:20 AM EDT [facility]10 Chloride 104 98 - 107 mmol/L 12/30/2022 11:20 AM EDT [facility] CO2 25 22 - 32 mmol/L 12/30/2022 11:20 AM EDT [facility] Anion Gap 14 7 - 15 mmol/L 12/30/2022 11:20 AM EDT [facility] Glucose 123(H) 70 - 120 mg/dL 12/30/2022 11:20 AM EDT [facility]10 Calcium 9.1 8.4 - 10.2 mg/dL 12/30/2022 11:20 AM EDT [facility] Blood Venous blood specimen / Unknown Venipuncture / Unknown 12/30/2022 10:03 AM EDT 12/30/2022 10:03 AM EDT Mira Jordan MD LAB BLOOD ORD ERABLES [facility] [place] [address] documented in this encounter Visit Diagnoses Diagnosis HFrEF (heart failure with reduced ejection fraction) (HCC) documented in this encounter Advance Directives Documents on File Type Date Recorded 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 No Care Teams Compliance Engineer Products Relationship Specialty Start Date End Date Ioana Son, [address] [place] [address] PCP - General Internal Medicine 02/10/17 documented as of this encounter
--- OUTSIDE RECORDS SUMMARY | 2023-06-22 18:25 | External Medical Summary | Summary of Care ---
Author Name Unknown Organization [facility] Address [address] [place] [address] Phone [phone] Care Team Providers Care Manager Cancer Name Role Phone Huy Ioana Hamlin Primary Care Provider [phone] Reason for Visit * Reason Comments Dosage Adjustment In Person (Anticoag Cl inic) Encounter Details Date Type Department Care Team Description 12/25/2022 Anticoagulation Pharmacy, [facility] 132 [facility] [place] [address] [facility] 132 [facility] [place] [address] 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*; longterm current use of 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 therapy Allergies Active Allergy Reactions Severity Noted Date Comments Jerod Inhibitors Cough 12/12/2009 Sulfa Antibiotics 06/08/1999 Gi upset/diarrhea documented as of this encounter (statuses as of 12/25/2022) Medications Medication Sig Dispensed Refills Start Date [...] as of this encounter (statuses as of 12/25/2022) Active Problems Problem Noted Date Apical mural [...] as of this encounter (statuses as of 12/25/2022) Resolved Problems Problem Noted Date Resolved Date [...] 10/10/2017 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 12/28/2010 01/16/2017 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 Family history of other cardiovascular diseases 07/26/2008 Overview: ICD-10 update of inactive term documented as of this encounter (statuses as of 12/25/2022) Immunizations Name Administration Dates Next Due COVID-19 [...] encounter Progress Notes * Agnes Wheeler, [facility] - 12/25/2022 7:55 AM EDT Images from the original note were not included. Medication Therapy Disease Management - Anticoagulation Patient: Celso Grant : 1945 Current Warfarin Dose As of 12/25/2022 Warfarin maintenance plan: No maintenance plan Patient-Reported Symptoms: Patient Findings Negatives: Signs/symptoms of thrombosis, Signs/symptoms of bleeding, Change in health, Change in alcohol use, Change in activity, Upcoming invasive procedure, Missed doses, Extra doses, Change in medications, Change in diet/appetite, Bruising INR Result As of 12/25/2022 INR goal: 2.0-3.0 INR used for dosin.8 (12/25/2022) Warfarin Plan As of 12/25/2022 Full warfarin instructions: 12/25: Hold; 12/26: 2.5 mg; 12/27: 1.25 mg; 12/28: 2.5 mg; 2: 1.25 mg Next INR check: 12/30/2022 Additional Dosing Information: Description Patient has 1mg, 2.5mg, 5mg and 6mg tablets Repeat PT/INR in 5 day(s) Weekly dose: not changed Agnes Wheeler [facility] Clinical Pharmacist 12/25/2022, 8:46 AM documented in this encounter Plan of Treatment Upcoming Encounters Date Type Specialty Care Team Description 12/30/2022 Anticoagulation Pharmacy [facility] [address] [place] [address] 01/03/2023 Office Visit Cardiology Lauro Thompson PA-C [address] [place] [address] 01/08/2023 Office Visit Urology Alli Page MD 27 [facility] [address] [place] [address] 01/27/2023 Cardiac Studies Cardiology Chino Rivas [facility] [address] [place] [address] 02/07/2023 Office Visit Family Medicine Mira Jordan MD [address] [place] [address] [place] [address] 02/24/2023 Office Visit Nephrology Tip Bergman MD [address] [place], [place] [address] 05/02/2023 Office Visit Family Medicine Ioana [address] [place] [address] 09/10/2023 Laboratory Laboratory [facility] 132 [facility] [place] [address] 09/22/2023 Office Visit Hematology Oncology Lamar Quintero MD [address] [place] [address] Health Maintenance Due Date Last Done Comments Hepatitis C Screening 1963 Depression, Most Recent Score >= 10 (will fire each visit until score < 10) 06/14/2020 06/13/2020 COLONOSCOPY-EVERY 3 YRS AGES 18-100 01/13/2021 01/13/2018 COVID-19 Vaccine (4 - Moderna series) 07/17/2021 05/22/2021, 09/28/2020, 08/31/2020 Influenza Vaccine (FLU shot) (Season Ended) 2023 07/16/2012, 06/22/2003 Nephrology Referral 03/19/2023 03/19/2022 PTH 03/19/2023 03/19/2022, 05/0 09/2021, 01/30/2021, Additional history exists Phosphate 03/19/2023 03/19/2022, 05/0 09/2021, 01/30/2021, Additional history exists Albumin/Creatinine Ratio 05/01/2023 022, 07/11/2020, 12/02/2019, Additional history exists GFR 06/24/2023 12/23/2022, 11/28, 11/29/2022, Additional history exists TSH 09/17/2023 09/16/2022, 08/01, 06/14/2022, Additional history exists HbA1c 10/30/2023 10/29/2022, 09/2021, 11/03/2020, Additional history exists Hgb 12/24/2023 [...] Diagnosis Comments INR FINGERSTICK, POINT OF CARE Routine 12/25/2022 8:00 AM EDT 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 documented in this encounter Results * INR FINGERSTICK, POINT OF CARE (12/25/2022 8:00 AM EDT) Fingerstick INR 3.8 INR 8:04 AM EDT [facility] Blood 12/25/2022 8:00 AM EDT 12/25/2022 8:04 AM EDT Narrative [facility] - 12/25/2022 8:04 AM EDT Therapeutic ranges for non-operative patients: Prophylaxsis/treatment of DVT: (Range:2.0-3.0) Treatment of pulmonary embolism:(Range:2.0-3.0) Prevention of systemic embolism from: -tissue heart valves -acute myocardial infarction -valvular heart disease -atrial fibrillation (Range: 2.0-3.0) Mechanical prosthetic valves: (Range: 2.5-3.5) Mervat Herrera [facility] LAB POINT OF CARE TEST DOCKED DEVICE UNSOLICITED RESULTS [facility]-10 [address] [place] [address] documented in this encounter Visit Diagnoses Diagnosis 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- Primary Encounter for therapeutic drug monitoring longterm current use of 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 therapy documented in this encounter Advance Directives Documents on File Type Date Recorded Patient Resident Advisor Expl anation Advance Directives and Living Will 02/04/2019 ADVANCE DIRECTIVE / LIVING WILL Power of Dock Coordinator 02/04/2019 POWER OF A TTORNEY Latest Code [...] the patient have Health Care Power of Dock Coordinator? No Care Teams Manager Cancer Relationship Specialty Start Date End Date Ioana Son[address] [place] [address] PCP - General Internal Medicine 02/10/17 documented as of this encounter
--- OUTSIDE RECORDS SUMMARY | 2023-06-22 18:25 | External Medical Summary ---
Author Name Unknown Address Unknown Organization [facility]-10 - [address] [place] [address] Laboratory Report Ordering Provider Test Date Status PRITESH SONG 12/25/2022 08:00:40 Final Therapeutic ranges for non-o perative patients:
Prophylaxsis/treatment of DVT: (Range:2.0-3.0)
Treatment of pulmonary embolism:(Range:2.0-3.0)
Prevention of systemic embolism from:
-tissue heart valves
-acute myocardial infarction
-valvular heart disease
-atrial fibrillation
(Range: 2.0-3.0)
Mechanical prosthetic valves: (Range: 2.5-3.5) Observation Date Value Abnormality Reference (Units ) Status INR in Capillary blood by Coagulation assay 12/25/2022 08:00:40 3.8 (INR) Final Performing Location [facility] 57-1 0 - [address] [place] [address]
--- OUTSIDE RECORDS SUMMARY | 2023-06-22 18:25 | External Medical Summary | Summary of Care ---
Author Name Unknown Organization [facility] Address [address] [facility] [place] [address] Phone [phone] Care Team Providers Care Conveyor Line Bakery Worker Name Role Phone Ioana Son Primary Care Provider [phone] Reason for Visit * Reason Onset Date Comments Test Results 12/25/2022 Encounter Details Date Type Department Care Team Description 12/25/[address] [place] [address] Mira Jordan MD [address] [place] [address] [place] [address] Test Results Allergies Active Allergy Reactions Severity Noted Date Comments Jerod Inhibitors Cough 12/12/2009 Sulfa Antibiotics 06/08/1999 Gi upset/diarrhea documented as of this encounter (statuses as of 12/26/2022) Medications Medication Sig Dispensed Refills Start Date [...] as of this encounter (statuses as of 12/26/2022) Active Problems Problem Noted Date Apical mural [...] as of this encounter (statuses as of 12/26/2022) Resolved Problems Problem Noted Date Resolved Date [...] as of this encounter (statuses as of 12/26/2022) Immunizations Name Administration Dates Next Due COVID-19 [...] encounter Miscellaneous Notes * Telephone Encounter - Lay Calderon LPN - 12/26/2022 4:56 PM EDT Provider to address: Pt notified, verbalized understanding. Reason for Call: Test Results Contact: Telephone Call Contact Type: Follow-up Outcome: Total Time including non face to face (minutes): 10 * Telephone Encounter - Mira Jordan MD - 12/25/2022 4:40 PM EDT Please call the pt Your blood count lab is normal Your kidney function is lower than previous blood work -- please drink at least 1.5L of water daily -- I would like to repeat the kidney function in 1 week documented in this encounter Plan of Treatment Upcoming Encounters Date Type Specialty Care Team Description 12/30/2022 Anticoagulation Pharmacy [facility] [address] [facility] [address] 01/03/2023 Office Visit Cardiology Lauro Thompson PA-C [address] [facility] [place] [address] 01/08/2023 Office Visit Urology Alli Page MD [address] [place] [address] 01/27/2023 Cardiac Studies Cardiology Chino Rivas [facility] 132 [address] [place] [address] 02/07/2023 Office Visit Family Medicine Mira Jordan MD [address] [place] [address] [place] [address] 02/24/2023 Office Visit Nephrology Tip Bergman MD 200 [facility] [place] [address] 05/02/2023 Office Visit Family Medicine Ioana Son DO [address] [place] [address] [place] [address] 09/10/2023 Laboratory Laboratory [facility] 132 [facility] [place] [address] 09/22/2023 Office Visit Hematology Oncology Lamar Quintero MD [address] [place] [address] Scheduled Orders Name Type Priority Associated Diagnoses Orde r Schedule BASIC METABOLIC PANEL Lab Routine HFrEF (heart failure with reduced ejection fraction) (HCC) Expected: 01/01/2023, Expires: 12/26/2023 Health Maintenance Due Date Last Done Comments [...] failure with reduced ejection fraction) (HCC)- Primary documented in this encounter Advance Directives Documents on File Type Date Recorded Patient Director Of Strategic Programs Expl anation Advance Directives and Living Will 02/04/2019 ADVANCE DIRECTIVE / LIVING WILL Power of Managing Manager 02/04/2019 POWER OF A TTORNEY Latest Code [...] the patient have Health Care Power of Managing Manager? No Care Teams Conveyor Line Bakery Worker Relationship Specialty Start Date End Date Ioana Son, [address] [place] [phone] PCP - General Internal Medicine 02/10/17 documented as of this encounter
--- OUTSIDE RECORDS SUMMARY | 2023-06-22 18:25 | External Medical Summary ---
Author Name Unknown Address Unknown Organization [facility]10 - [address] [place] [address] Laboratory Report Ordering Provider Test Date Status VIDAL MCCALLUM 12/30/2022 10:03:30 Therese l Observation Date Value Abnormality Reference (Units ) Status BUN 12/30/2022 10:03:30 41 Above high normal 6-20 (mg/dL) Final Creatinine 12/30/2022 10:03:30 2.7 Above high normal 0.6-1.2 (mg/dL) Final Glomerular filtration rate/1.73 sq M.predicted [Volume Rate/Area] in Serum, Plasma or Blood by Creatinine-based formula (CKD-EPI) 12/30/2022 10:03:30 24 Below low normal >=60 (mL/min) Final eGFR is calculated based on the CKD-EPI 2020 equation SODIUM 12/30/2022 10:03:30 143 135-146 (m mol/L) Final Potassium 12/30/2022 10:03:30 4.5 3.5-5.1 (m mol/L) Final Cl 12/30/2022 10:03:30 104 98-107 (mm ol/L) Final CO2 12/30/2022 10:03:30 25 22-32 (mmo l/L) Final Anion gap 12/30/2022 10:03:30 14 7-15 (mmol /L) Final Glucose 12/30/2022 10:03:30 123 Above high normal 70 -120 (mg/dL) Final Calcium 12/30/2022 10:03:30 9.1 8.4-10.2 ( mg/dL) Final Performing Location [facility]1 0 - [address] [place] [address]
--- OUTSIDE RECORDS SUMMARY | 2023-06-22 18:25 | External Medical Summary | Summary of Care ---
Author Name Unknown Organization [facility] Address [address] [place] [address] Phone [phone] Care Team Providers Care Stores Naval Name Role Phone Zoe Sonanda Hamlin Primary Care Provider [phone] Reason for Visit * Reason Comments Outpatient Testing Encounter Details Date Type Department Care Team Description 12/30/2022 Laboratory Laboratory, [facility] 132 [facility] [place] [address] [facility] 132 [facility] [place] [address] HFrEF (heart failure with reduced ejection fraction) ([facility]) Allergies Active Allergy Reactions Severity Noted [...] 01/17/2012 10/10/2017 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 12/28/2010 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 [address] [place] [address] 01/27/2023 Cardiac Studies [facility] [address] 02/07/2023 Office Visit Family Medicine Mira Jordan MD [address] [place] [address] [place] [address] 02/24/2023 Office Visit Nephrology Tip Bergman MD [address] [place] [address] 05/02/2023 Office Visit Family Medicine Ioana Son DO [address] [place] [address] [place] [address] 09/10/2023 Laboratory Laboratory [facility] 132 [facility] [place] [address] 09/22/2023 Office Visit Hematology Oncology Lamar Quintero MD [address] [place] [address] Pending Results Name Type Priority Associated Diagnoses Date /Time BASIC METABOLIC PANEL Lab Routine HFrEF (heart failure with reduced ejection fraction) (HCC) 12/30/2022 10:03 AM EDT Health Maintenance Due Date Last [...] Documents on File Type Date Recorded 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 No Care Teams Stores Naval Relationship Specialty Start Date End Date Ioana Son, [address] [place] [phone] PCP - General Internal Medicine 02/10/17 documented as of this encounter
--- OUTSIDE RECORDS SUMMARY | 2023-06-22 18:25 | External Medical Summary | Summary of Care ---
Author Name Unknown Organization [facility] Address [address] [place] [address] Phone [phone] Care Team Providers Care Nursing Home Assistant Name Role Phone SonIoana wall Primary Care Provider [phone] Reason for Visit * Reason Comments Outpatient Testing Encounter Details Date Type Department Care Team Description 01/03/2023 Laboratory Laboratory, [facility] 132 [facility] [place] [address] [facility] 132 [facility] [place] [address] Arrived Allergies Active Allergy Reactions Severity Noted Date Comments Jerod Inhibitors Cough 12/12/2009 Sulfa Antibiotics 06/08/1999 Gi upset/diarrhea documented as of this encounter (statuses as of 01/03/2023) Medications Medication Sig Dispensed Refills Start Date [...] as of this encounter (statuses as of 01/03/2023) Active Problems Problem Noted Date Apical mural [...] as of this encounter (statuses as of 01/03/2023) Resolved Problems Problem Noted Date Resolved Date [...] 01/17/2012 10/10/2017 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 12/28/2010 01/16/2017 FPC current use of 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 therapy 0 12/28/2010 10/27/2020 Overview: ICD-10 update of inactive term Automatic implantable cardioverter-defibrillator in situ 09/14/2010 06/12/2017 SYSTOLIC HYPERTENSION 12/13/2009 06/12/2017 FAMILY HX,CARDIOVASCULAR DISEASE 07/26/2008 02/10/2017 ADVANCE DIRECTIVE INFORMATION 01/13/2006 Overview: Pt took booklet. Family history of other cardiovascular diseases 07/26/2008 Overview: ICD-10 update of inactive term documented as of this encounter (statuses as of 01/03/2023) Immunizations Name Administration Dates Next Due COVID-19 [...] Specialty Care Team Description 01/08/2023 Anticoagulation Pharmacy [facility] 132 [facility] [place] [address] 01/08/2023 Office Visit Urology Alli Page MD [address] [place] [address] [place] [address] 01/27/2023 Cardiac Studies Cardiology Chino Rivas [facility] [address] [place] [address] 02/07/2023 Office Visit Family Medicine Mira Jordan MD 210 [facility] [place] [address] 02/24/2023 Office Visit Nephrology Tip Bergman MD [address] [place], [place] [address] 05/02/2023 Office Visit Family Medicine Ioana Son DO 210 [facility] [place] [address] 06/20/2023 Office Visit Cardiology Lauro Thompson PA-C [address] [place] [address] 09/10/2023 Laboratory Laboratory [facility] [address] [place] [address] 09/22/2023 Office Visit Hematology Oncology Lamar Quintero MD [address] [place] [address] Health Maintenance Due Date Last Done Comments [...] Documents on File Type Date Recorded Patient Tin Container Straightener Expl anation Advance Directives and Living Will 02/04/2019 ADVANCE DIRECTIVE / LIVING WILL Power of Purchasing Internship 02/04/2019 POWER OF A TTORNEY Latest Code [...] the patient have Health Care Power of Purchasing Internship? No Care Teams Nursing Home Assistant Relationship Specialty Start Date End Date Ioana Son, [address] [place] [address] PCP - General Internal Medicine 02/10/17 documented as of this encounter
--- OUTSIDE RECORDS SUMMARY | 2023-06-22 18:25 | External Medical Summary | Summary of Care ---
Author Name Unknown Organization [facility] Address [address] [facility] [place] [address] Phone [phone] Care Team Providers Care Apartment Rental Agent Name Role Phone Son, Ioanatamika Hamlin Primary Care Provider Reason for Visit * Reason Onset Date Comments Hospital Follow-Up 12/09/2022 Encounter Details Date Type Department Care Team Description 12/09/2022 Telephone Ancillary [address] [place] [id number] Martita Manning, [place] [facility] Follow-Up (/) Allergies Active Allergy Reactions Severity Noted Date [...] Takes at 0200 and 1400 0 Active Ipratropium [place] 0.03 % Nasal Solution (Atrovent) Administer 2 Sprays into each nostril 4 times a day as needed (runny nose). for runny nose 30 mL 1 10/29/2022 3 Discontinue d(Medicatio n List Clean Up) Torsemide 100 MG Oral Tablet (Demadex) Take 1 Tablet by mouth in the morning. 90 Tablet 3 11/21/2022 3 Discontinue d(Medicatio n List Clean Up) Potassium Chloride Monse ER 20 MEQ Oral Tablet Extended Release Take 4 Tablets by mouth every evening. 360 Tablet 3 11/21/2022 3 Discontinue d(Medicatio n/Dose Changed) Enoxaparin Sodium 120 MG/0.8ML Injection Solution Prefilled Syringe (Lovenox) 111 mg. 0 12/08/2022 3 Discontinue d(Medicatio n List Clean Up) documented as of this encounter (statuses as [...] Telephone Encounter - Martita Manning RN - 12/11/2022 9:48 AM EDT See other encounter re follow up * Telephone Encounter - Martita Manning RN - 12/09/2022 4:25 PM EDT Transitions of Care Note Reason for Referral:Recent Admission Phone visit for follow up: silvestre Admitted to: [facility], Date: 12.05.22 Discharged to: home, Date: 12.08.22 Diagnosis driving hospitalization: Acute decompensated systolic congestive heart failure Moderate size apical thrombus Source/Contact: Patient SUBJECTIVE Consent: Verbal consent for review of hospital discharge: Yes REVIEW OF SYSTEMS Patient/Other Reports: Current patient/caregiver problems or concerns: none CV: Denies problems Pulmonary: Denies problems Chills/Sweats/Fever:Denies chills/sweats Denies fever Appetite:Denies problems such as nausea, vomiting, burning, decreased appetite Current diet: reg Bowel: denies problems Bladder: denies problems Wound (If applicable): N/A Pain:Denies Sleep:Denies problems FUNCTIONAL STATUS: ADL'S: Needs Assistance With:N/A as pt is independent IADL'S: Needs Assistance With:N/A as pt is independent Cognitive and Mental Health: denies problems, alert and oriented x 3 and able to communicate, understand instructions, process information. MEDICATION RECONCILIATION Medications: pt is confused on medicines, but they are different with [facility] discharge . Pt is seeingMTM tomorrow and I counseled pt to take all the meds he is currently taking and the wkly pill containers that are currently not correct . The MTM can help him with that. OBJECTIVE ASSESSMENT Medication Risk Assessment: PolyPharmacy Did patient fail outpatient treatment? Yes Discharge instructions available for review? Yes PLAN Symptom Monitoring Interventions:Member/caregiver education - signs and symptoms to contact [facility] (DO NOT DELETE-Three jones symptoms patient is to report to PCP) 1. Chest pain 2. sob 3. Worsening confusion Digester CookCanoe Inspector Final of Care interventions/Action Plan: 5 - 7 day follow-up with PCP in place - Date: this friday Educated on role of SILVESTRE completed with patient/caregiver. Educated patient/caregiver on patient right to have input on SILVESTRE plan of care. Verification of Home Health/DME if indicated: NO Identified Care Gaps: Yes Care Gaps closed this call: Transition of Care follow-up communication Re-evaluation of Plan of Care and progress towards goals achievement: Patient education this visit: Verbal, pt to bring all meds and pill container to [facility] appt. Plan to follow-up as previously scheduled, instructed to call Primary Care Provider with change in symptoms or as needed before next follow-up, verbalizes understanding and agrees with plan. Again pt is confused on the medication changes. Pt lives at home alone. Pt to bring in all current meds and review them with [facility] tomorrow. Martita Manning RN documented in this encounter Plan of Treatment Upcoming Encounters Date Type Specialty Care Team Description 12/30/2022 Anticoagulation Pharmacy [facility] [place] [address] 01/03/2023 Office Visit Cardiology [facility]uro Thompson [facility]-C [facility] [place] [address] 01/08/2023 Office Visit [facility]rology Alli Page MD [facility] [address] [place] [address] 01/27/2023 Cardiac Studies Cardiology Chino Rivas [facility] [place] [address] 02/07/2023 Office Visit Family Medicine Mira Jordan MD [address] [place] [address] [place] [address] 02/24/2023 Office Visit Nephrology Tip Bergman MD [address] [facility] [place] [address] 05/02/2023 Office Visit Family Medicine Ioana Son DO [address] [place] [address] [place] [address] 09/10/2023 Laboratory Laboratory [facility], [facility] [address] [place] [address] 09/22/2023 Office Visit Hematology Oncology Lamar Quintero MD [address] [facility] [place] [address] Health Maintenance Due Date Last Done Comments [...] Documents on File Type Date Recorded Patient Rake Operator Expl 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 No Care Teams Apartment Rental Agent Relationship Specialty Start Date End Date Ioana Son, [address] [place] [address] PCP - General Internal Medicine 02/10/17 documented as of this encounter
--- OUTSIDE RECORDS SUMMARY | 2023-06-22 18:25 | External Medical Summary ---
Author Name UNSPECIFIED Address Unknown Organization [facility] History of Encounters Reason for Assessment: Start of care - f urther visits planned Inpatient discharge facility: Past 14 Da ys: Discharged From Short Stay Acute Hospital Most Recent Inpatient Discharge Date: Functional Assessment Patient Living Situation: Patient Lives Alone: Around the clock When Dyspneic: With minimal exertio n (e.g., while eating, talking, or performing other ADLs) or with agitation Bowel Incontinence Frequency: Very rarel y or never has bowel incontinence Cognitive and Behavioral and Psychiatric Symptoms: None Current: Management Of Oral Medications: Able to independently take the correct oral medication(s) and proper dosage(s) at the correct time Problems Primary Home Care Diagnosis ICD Code: I1 3.0, Hyp 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 and stg 1-4/unsp chr kdny Home Care Diagnosis 1: ICD Code: I50.23, Acute on chronic systolic (congestive) heart failure Home Care Diagnosis 1: Severity Ratin Home Care Diagnosis 2: ICD Code: N18.4, Chronic kidney disease, stage 4 (severe) Home Care Diagnosis 2: Severity Ratin Home Care Diagnosis 3: ICD Code: I42.9, Cardiomyopathy, unspecified Home Care Diagnosis 3: Severity Ratin Home Care Diagnosis 4: ICD Code: 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
--- OUTSIDE RECORDS SUMMARY | 2023-06-22 18:25 | External Medical Summary | Summary of Care ---
Author Name Unknown Organization [facility] Address [address] [facility] [place] [address] Phone [phone] Care Team Providers Care Rn Sane Name Role Phone Ioana Son Primary Care Provider [phone] Reason for Visit * Reason Onset Date Comments Test Results 12/25/2022 Encounter Details Date Type Department Care Team Description 12/25/[address] [place] [phone] Mira Jordan MD [address] [place] [address] [place] [address] Test Results Allergies Active Allergy Reactions Severity [...] encounter Miscellaneous Notes * Telephone Encounter - Mira Jordan MD [...] Specialty Care Team Description 12/30/2022 Anticoagulation Pharmacy [facility] [place] [address] 01/03/2023 Office Visit Cardiology Lauro Thompson PA-C [address] [place] [address] 01/08/2023 Office Visit Urology Alli Page MD [address] [place] [address] [place] [address] 01/27/2023 Cardiac Studies Cardiology Chino Rivas [facility] [address] [place] [address] 02/07/2023 Office Visit Family Medicine Mira Jordan MD [address] [place] [address] [place] [address] 02/24/2023 Office Visit Nephrology Tip Bergman MD [address] [facility] [address] [place] [address] 05/02/2023 Office Visit Family Medicine Ioana Son DO [address] [place] [address] [place] [address] 09/10/2023 Laboratory Laboratory McdanielTonya winn [facility] [place] [address] 09/22/2023 Office Visit Hematology Oncology Lamar Quintero MD [address] [place] [address] Scheduled Orders Name Type Priority Associated Diagnoses [...] failure with reduced ejection fraction) ([facility])- Primary documented in this encounter Advance Directives Documents on File Type Date Recorded Patient Forest Supervisor Expl anation Advance Directives and Living Will 02/04/2019 ADVANCE DIRECTIVE / LIVING WILL Power of Supply Chain Assistant 02/04/2019 POWER OF A TTORNEY Latest [...] the patient have Health Care Power of Supply Chain Assistant? No Care Teams Rn Sane Relationship Specialty Start Date End Date Ioana Son, [address] [place] [address] PCP - General Internal Medicine 02/10/17 documented as of this encounter
--- OUTSIDE RECORDS SUMMARY | 2023-06-22 18:25 | External Medical Summary | Summary of Care ---
Author Name Unknown Organization [facility] Address [address] [facility] [place] [address] Phone [phone] Care Team Providers Care Cook Fast Food Name Role Phone Huy Ioana Hamlin Primary Care Provider [phone] Reason for Visit * Reason Comments Dosage Adjustment In Person (Anticoag Cl inic) Encounter Details Date Type Department Care Team Description 12/30/2022 Anticoagulation Pharmacy, [facility] 132 [facility] [place] [address] [facility] [address] [facility] [place] [address] 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*; detention current use of 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 therapy Allergies Active [...] 01/17/2012 10/10/2017 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 12/28/2010 01/16/2017 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 0 [...] encounter Progress Notes * Agnes Wheeler, [facility] - 12/30/2022 10:58 AM EDT Medication Therapy Disease Management - Anticoagulation Patient: Celso Grant : 1945 Current Warfarin Dose As of 12/30/2022 Warfarin maintenance plan: 2.5 mg (2.5 mg x 1) every Mon, Wed, Fri; 1.25 mg (2.5 mg x 0.5) all other days Patient-Reported Symptoms: Patient Findings Negatives: Signs/symptoms of thrombosis, Signs/symptoms of bleeding, Change in health, Change in alcohol use, Change in activity, Upcoming invasive procedure, Missed doses, Extra doses, Change in medications, Change in diet/appetite, Bruising INR Result As of 12/30/2022 INR goal: 2.0-3.0 INR used for dosin.0 (12/30/2022) Warfarin Plan As of 12/30/2022 Full warfarin instructions: 2.5 mg every Mon, Wed, Fri; 1.25 mg all other days Next INR check: 01/08/2023 Additional Dosing Information: Description Patient has 1mg, 2.5mg, 5mg and 6mg tablets Repeat PT/INR in 1 week(s) Weekly dose: not changed Agnes Wheeler [facility] Clinical Pharmacist 12/30/2022, 11:11 AM documented in this encounter Plan of Treatment Upcoming Encounters Date Type Specialty Care Team Description 01/03/2023 Office Visit Cardiology Lauro Thompson PA-C [address] [facility] [place] [address] 01/08/2023 Anticoagulation Pharmacy [facility] 132 [facility] [place] [address] 01/08/2023 Office Visit Urology Alli Page MD 27 [facility] 270 [place] [address] 01/27/2023 Cardiac Studies Cardiology Chino Rivas [facility] [address] [place] [address] 02/07/2023 Office Visit Family Medicine Mira Jordan MD [address] [place] [address] [place] [address] 02/24/2023 Office Visit Nephrology Tip Bergman MD [address] [place] [address] 05/02/2023 Office Visit Family Medicine Ioana Son[address] [place] [address] 09/10/2023 Laboratory Laboratory McdanielTonya winn 132 [facility] [place] [address] 09/22/2023 Office Visit Hematology Oncology Lamar Quintero MD [address] [place] [address] Scheduled Orders Name Type Priority Associated Diagnoses Orde r Schedule PT INR Lab Routine 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 26 Occurrences starting 12/30/2022 until 12/30/2023 INR FINGERSTICK, POINT OF CARE Point of Care Testing - Unsolicited Results STAT 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 Every 2 Weeks for 26 Occurrences starting 12/30/2022 until 12/31/2023, 1 completed Health Maintenance Due Date Last Done Comments [...] 07/11/2020, 12/02/2019, Additional history exists GFR 06/24/2023 12/30/2022, 11/29, 12/09/2022, Additional history exists TSH [...] Comments INR FINGERSTICK, POINT OF CARE STAT 12/30/2022 11:03 AM EDT 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 detention current use of 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 therapy documented in this encounter Results * INR FINGERSTICK, POINT OF CARE (12/30/2022 11:03 AM EDT) Fingerstick INR 3.0 INR 11:05 AM EDT [facility] Blood 12/30/2022 11:0 3 AM EDT 12/30/2022 11:05 AM EDT Narrative [facility] - 12/30/2022 11:05 AM EDT Therapeutic ranges for non-operative patients: Prophylaxsis/treatment of DVT: (Range:2.0-3.0) Treatment of pulmonary embolism:(Range:2.0-3.0) Prevention of systemic embolism from: -tissue heart valves -acute myocardial infarction -valvular heart disease -atrial fibrillation (Range: 2.0-3.0) Mechanical prosthetic valves: (Range: 2.5-3.5) Agnes Wheeler [facility] LAB POINT OF C ARE TEST DOCKED DEVICE UNSOLICITED RESULTS [facility] [address] [place] [address] documented in this encounter Visit Diagnoses Diagnosis 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- Primary Encounter for therapeutic drug monitoring detention current use of 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 therapy documented in this encounter Advance Directives Documents on File Type Date Recorded Patient Monkey Breeder Expl anation Advance Directives and Living Will 02/04/2019 ADVANCE DIRECTIVE / LIVING WILL Power of Stevedoring Superintendent 02/04/2019 POWER OF A TTORNEY Latest Code [...] the patient have Health Care Power of Stevedoring Superintendent? No Care Teams Cook Fast Food Relationship Specialty Start Date End Date Ioana Son, [address] [place] [address] PCP - General Internal Medicine 02/10/17 documented as of this encounter
--- OUTSIDE RECORDS SUMMARY | 2023-06-22 18:25 | External Medical Summary ---
Author Name Unknown Address Unknown Organization [facility] - [address] [place] [address] Laboratory Report Ordering Provider Test Date Status YANN SCHWARZ 12/30/2022 11:03:33 Final Therapeutic ranges for non-o perative patients:
Prophylaxsis/treatment of DVT: (Range:2.0-3.0)
Treatment of pulmonary embolism:(Range:2.0-3.0)
Prevention of systemic embolism from:
-tissue heart valves
-acute myocardial infarction
-valvular heart disease
-atrial fibrillation
(Range: 2.0-3.0)
Mechanical prosthetic valves: (Range: 2.5-3.5) Observation Date Value Abnormality Reference (Units ) Status INR in Capillary blood by Coagulation assay 12/30/2022 11:03:33 3.0 (INR) Final Performing Location [facility] 0 - [address] [place] [address]
[2023-06-22 19:29] LABS: Basophils # (auto) 0.02 K/uL (0.00-0.20); Basophils % (auto) 0.2 %; Hematocrit (blood only) 40.5 % (42.0-52.0); Hemoglobin 12.7 g/dl (14.0-18.0); Immature Granulocytes # (auto) 0.06 K/uL (0.01-0.20); Immature Granulocytes % (auto) 0.7 %; Lymphocytes # (auto) 0.63 K/uL (1.20-3.40); Lymphocytes % (auto) 7.5 %; Mean Corpuscular Hemoglobin 30.5 pg (25.0-34.0); Mean Corpuscular Hgb Conc 31.4 g/dL (32.0-36.0); Mean Corpuscular Volume 97.4 fL (80.0-100.0); Mean Platelet Volume 12.8 fL (9.4-12.4); Monocytes # (auto) 0.39 K/uL (0.11-0.59); Monocytes % (auto) 4.6 %; Neutrophils # (auto) 7.33 K/uL (1.40-6.50); Platelet Count 159 K/uL (130-400); RDW Coefficient of Variation 16.1 % (11.5-14.5); RDW Standard Deviation 57.5 fL (36.4-46.3); Red Blood Count 4.16 M/uL (4.70-6.10); White Blood Count 8.43 K/ul (4.8-10.8)
[2023-06-22 19:40] LABS: Albumin Globulin Ratio 1.2 (0.9-2); Albumin Level 3.7 gm/dl (3.4-5.0); BUN Creatinine Ratio 15.3 (10-20); Bilirubin,Total 0.6 mg/dl (0.2-1.0); Calcium 8.3 mg/dl (8.6-10.3); Creatinine Clr Calc Pharmacy 37.7 ml/min; Est GFR (Non-African American) 28.4 ml/min; Globulin 3.1 gm/dl (2.5-4.0); Magnesium 2.1 mg/dl (1.7-2.4); Potassium 5.3 mmol/L (3.5-5.1); Total Protein 6.8 gm/dl (6.0-8.3)
--- NOTE | 2023-06-22 19:41 | Emergency Department Note ---
Impression & Plan Near syncope, Non-ST elevation [place] (NSTEMI), Acute exacerbation of CHF (congestive heart failure), Acute hyperkalemia ED Provider Note HISTORY OF PRESENT ILLNESS: Patient is a 77-year-old male who presents after a near syncopal episode. Patient reports that he felt dizzy like he was going to pass out and "melted" to the floor. He describes lowering himself to the ground. Denies striking his head or loss of consciousness. He denies any chest pain or shortness of breath with the episode. Reports that he just felt dizzy like he was going to pass out. He denies any history of cardiac stents. He is on Coumadin for previous history of a PE. He does have a pacemaker and defibrillator in place. Denies any recent fevers. Denies any nausea or vomiting. ROS: as above PHYSICAL EXAM: Constitutional: Patient appears in no acute distress. HENT: Head: Normocephalic and atraumatic. Eyes: EOMI, PERRL Mouth/Throat: Mucous membranes moist. Neck: Trachea midline. Neck supple. Cardiovascular: RRR, No murmurs, rubs or gallops. Intact distal pulses. Pulmonary/Chest: No respiratory distress. Breath sounds clear and equal bilaterally. Coarse breath sounds bilaterally. Abdominal: Abdomen soft, no tenderness, rebound or guarding. Musculoskeletal: No edema, tenderness or deformity noted. Skin: Warm and dry. No rash, erythema, pallor or cyanosis Psychiatric: Appropriate mood and affect for situation. Neurological: Alert and keenly responsive. CN II-XII grossly intact, moving all extremities equally and fully. MDM: - Vitals signs stable. - History obtained via patient. Patient presents with near syncopal episode. Patient reports he was walking in his kitchen when he felt dizzy like he was going to pass out and lowered himself to the ground. Denies striking his head or loss of consciousness. Denies any significant chest pain or shortness of breath with the episode. He reports he felt dizzy like he was going to pass out. Denies any history of cardiac stents. He is on Coumadin for history of PEs. He does have a pacemaker and defibrillator in place. - Chronic conditions affecting care: HTN; HLD; CKD; MGUS; DM-2 - Differential diagnoses include, but are not limited to: ACS; dysrhythmia; electrolyte abnormality; CVA; intracranial hemorrhage - Order placed for continuous cardiac monitoring. At this time, monitor showed rate of 91 bpm with paced rhythm, per my interpretation. - External medical records reviewed. EMS run sheet was reviewed. Patient was vitally stable on arrival. He was started on supplemental oxygen and route due to it "making the patient feel better." - EKG interpreted by myself showed ventricular paced rhythm. Rate 88 bpm. - Laboratory workup interpreted by myself showed normal WBC; hyperkalemia (K 5.3); CKD; hypocalcemia (Ca 8.3); elevated troponin (57.3); elevated BNP (1195) - Repeat troponin rising to 63.6 - UA negative for infection - CXR showed pulmonary vascular congestion, per my interpretation. - Patient given 324 mg PO aspirin - Given 1g IV calcium and 500 cc NS for hyperkalemia - 20 mg IV lasix ordered for hyperkalemia and CHF exacerbation - Discussion was had with child care lead teacher about patient's case and need for admission - Hospitalist, Dr. Hutchins, consulted for admission - [facility]. I have personally spent 43 minutes of critical care time in the direct management of this patient. This includes bedside care, interpretation of diagnostic studies, and testing, discussion with consultants, patient, and family members, and other required patient management activities. This 43 minutes is in excess of all separately billable procedures. ASSESSMENT AND PLAN: Diagnosis: near syncope; hyperkalemia; hypocalcemia; NSTEMI; CHF exacerbation Plan: admit Past Med/Surg History Medical History Biventricular cardiac pacemaker in situ Chronic anticoagulation CKD (chronic kidney disease) stage 3, GFR 30-59 ml/min CKD (chronic kidney disease), stage IV Dyslipidemia GI bleed Gout HFrEF (heart failure with reduced ejection fraction) HTN (hypertension) Iron deficiency anemia 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 Joyner) initially followed with active surveillance PSAD - 0.434 TREATMENT: 1. 6 months of hormonal suppression 2. Status post completion of IMRT/IGRT 09/02/2016 received 8100 cGy" On 04/18/16 15:06 Lynne Henao wrote "STAGING: Prostate, adenocarcinoma, meenu 3 + 4, PSA 17.38, cT2b, group IIB Prostate gland size - 40 cc (by [facility], Dr. Joyner) PSAD - 0.434" Secondary hyperparathyroidism of renal origin Tubular adenoma of rectum Surgical History History of implantable cardioverter-defibrillator (ICD) placement History of tonsillectomy Hx of colonoscopy Family History Father Heart disease age 73 - [place] Uncle Heart disease paternal Grandfather (Paternal) Heart disease Social History Smoking Status: Never smoker Second Hand Exposure: Yes (Brother while visiting); Do You Dip or Chew Tobacco: No; Hx Alcohol Use: Yes Alcohol type: beer Alcohol Intake Frequency: Monthly or Less Hx Substance Use: No Preferred Language: Burkinan Communication Ability: Effective Emergency Detail Driver Required: No Beliefs That Will Affect Care: None marital status: Current Living Situation: Alone Current Living Situation Comment: home alone How many Children do You have: 2 Feels Safe at Home: Yes Assistive Devices: Cane Allergies Allergies Allergy/AdvReac Type Severity Reaction Status Date / Time CALLIE Inhibitors AdvReac Intermediate COUGH Verified 01/29/22 17:14 Sulfa (Sulfonamide AdvReac Intermediate DIARRHEA Verified 01/29/22 17:14 Antibiotics) Home Meds Home Medications Medication Instructions Recorded Confirmed aspirin 81 mg tablet,delayed 81 mg PO DAILY 06/05/20 06/22/23 release iihljwsx-hbm-ksstl acid 0.4 1 tab PO DAILY 12/24/21 06/22/23 mg-lycopene 300 mcg-lutein 250 mcg tablet (Centrum Silver) furosemide 40 mg tablet 80 mg PO BID 12/11/22 06/22/23 levothyroxine 50 mcg tablet 50 mcg PO QAM 12/11/22 06/22/23 allopurinol 300 mg tablet 300 mg PO QAM 06/22/23 06/22/23 potassium chloride 20 mEq See Rx Instructions .Route .COMPLEX 06/22/23 06/22/23 tablet,extended release(part/cryst) tamsulosin 0.4 mg capsule 0.4 mg PO QAM 06/22/23 06/22/23 warfarin 6 mg tablet 0 mg PO DIRECTED 06/22/23 06/22/23 Previous Rx's Medication Instructions Recorded amiodarone 200 mg tablet 200 mg PO BID 60 days #120 tabs 06/07/20 metoprolol succinate 50 mg 50 mg PO BID 60 days #120 tabs 06/07/20 tablet,extended release 24 hr Results & Data (ED) Vital Signs Vital Signs - 24 hr 06/22/23 18:27 06/22/23 18:43 06/22/23 19:57 Temperature 36.6 C Temperature Source Oral Pulse Rate 80 80 87 Pulse Rate [Apical] Respiratory Rate 20 18 Respiratory Depth Normal Respiratory Pattern Regular Blood Pressure 107/82 Blood Pressure [Left Arm] Blood Pressure Mean 90 Blood Pressure Mean [Left Arm] Pulse Oximetry 96 92 Oxygen Delivery Method Nasal Cannula Room Air Oxygen Flow Rate 4 Sepsis Recent Fever Within 48 Hours No Sepsis New/Unexplained Change in Mental Status No Sepsis Action Taken by Nursing No Action Required 06/22/23 20:00 06/22/23 21:00 06/22/23 22:00 Temperature Temperature Source Pulse Rate Pulse Rate [Apical] 84 91 H Respiratory Rate 22 18 Respiratory Depth Respiratory Pattern Blood Pressure Blood Pressure [Left Arm] 122/76 132/80 142/89 H Blood Pressure Mean Blood Pressure Mean [Left Arm] 91 97 106 Pulse Oximetry 92 92 Oxygen Delivery Method Room Air Room Air Oxygen Flow Rate Sepsis Recent Fever Within 48 Hours Sepsis New/Unexplained Change in Mental Status Sepsis Action Taken by Nursing Laboratory Data 06/22/23 18:50 06/22/23 18:50 Lab Results 06/22/23 06/22/23 06/22/23 Range/Units 18:50 20:23 21:00 WBC 8.43 (4.8-10.8) K/ul RBC 4.16 L (4.70-6.10) M/uL Hgb 12.7 L (14.0-18.0) g/dl Hct 40.5 L (42.0-52.0) % MCV 97.4 (80.0-100.0) fL MCH 30.5 (25.0-34.0) pg MCHC 31.4 L (32.0-36.0) g/dL RDW Std Deviation 57.5 H (36.4-46.3) fL RDW Coeff of Santosh 16.1 H (11.5-14.5) % Plt Count 159 (130-400) K/uL MPV 12.8 H (9.4-12.4) fL Immature Gran % (Auto) 0.7 % Neut % (Auto) 87.0 % Lymph % (Auto) 7.5 % [place] % (Auto) 4.6 % Eos % (Auto) 0.0 % Baso % (Auto) 0.2 % Neut # (Auto) 7.33 H (1.40-6.50) K/uL Lymph # (Auto) 0.63 L (1.20-3.40) K/uL [place] # (Auto) 0.39 (0.11-0.59) K/uL Eos # (Auto) 0.00 (0.00-0.50) K/uL Baso # (Auto) 0.02 (0.00-0.20) K/uL Immature Gran # (Auto) 0.06 (0.01-0.20) K/uL PT Cancelled 15.7 H INR Cancelled 1.5 H Sodium 138 (136-145) mmol/L Potassium 5.3 H (3.5-5.1) mmol/L Chloride 105 (98-107) mmol/L Carbon Dioxide 24 (21-32) mmol/L Anion Gap 9 (3-11) BUN 33 H (6-23) mg/dl Creatinine 2.15 H (0.6-1.4) mg/dl Est Cr Clr Drug Dosing 37.7 ml/min Est GFR ( Amer) 33.0 ml/min Est GFR (Non-Af Amer) 28.4 ml/min BUN/Creatinine Ratio 15.3 (10-20) Glucose 148 H (70-99(Fasting)) mg/dl Calcium 8.3 L (8.6-10.3) mg/dl Magnesium 2.1 (1.7-2.4) mg/dl Total Bilirubin 0.6 (0.2-1.0) mg/dl AST 79 H (13-39) U/L ALT 92 H (7-52) U/L Alkaline Phosphatase 81 (34-104) U/L Troponin I High Sens 57.3 H* 63.6 H* (0-20) pg/ml B-Natriuretic Peptide 1195 H (0-100) pg/ml Total Protein 6.8 (6.0-8.3) gm/dl Albumin 3.7 (3.4-5.0) gm/dl Globulin 3.1 (2.5-4.0) gm/dl Albumin/Globulin Ratio 1.2 (0.9-2) Urine Color Urine Appearance (Clear) Urine pH (4.5-7.5) Ur Specific [place] (1.000-1.030) Urine Protein (Negative) Urine Glucose (UA) (Negative) Urine Ketones (Negative) Urine Blood (Negative) Urine Nitrite (Negative) Urine Bilirubin (Negative) Urine Urobilinogen (Negative) Ur Leukocyte Esterase (Negative) Urine WBC (Auto) (0-5) /hpf Urine RBC (Auto) (0-4) /hpf U Hyaline Cast (Auto) (0-5) /lpf U Epithel Cells (Auto) (0-5) /lpf Urine Bacteria (Auto) (Negative) 06/22/23 Range/Units 21:05 WBC (4.8-10.8) K/ul RBC (4.70-6.10) M/uL Hgb (14.0-18.0) g/dl Hct (42.0-52.0) % MCV (80.0-100.0) fL MCH (25.0-34.0) pg MCHC (32.0-36.0) g/dL RDW Std Deviation (36.4-46.3) fL RDW Coeff of Santosh (11.5-14.5) % Plt Count (130-400) K/uL MPV (9.4-12.4) fL Immature Gran % (Auto) % Neut % (Auto) % Lymph % (Auto) % [place] % (Auto) % Eos % (Auto) % Baso % (Auto) % Neut # (Auto) (1.40-6.50) K/uL Lymph # (Auto) (1.20-3.40) K/uL [place] # (Auto) (0.11-0.59) K/uL Eos # (Auto) (0.00-0.50) K/uL Baso # (Auto) (0.00-0.20) K/uL Immature Gran # (Auto) (0.01-0.20) K/uL PT INR Sodium (136-145) mmol/L Potassium (3.5-5.1) mmol/L Chloride (98-107) mmol/L Carbon Dioxide (21-32) mmol/L Anion Gap (3-11) BUN (6-23) mg/dl Creatinine (0.6-1.4) mg/dl Est Cr Clr Drug Dosing ml/min Est GFR ( Amer) ml/min Est GFR (Non-Af Amer) ml/min BUN/Creatinine Ratio (10-20) Glucose (70-99(Fasting)) mg/dl Calcium (8.6-10.3) mg/dl Magnesium (1.7-2.4) mg/dl Total Bilirubin (0.2-1.0) mg/dl AST (13-39) U/L ALT (7-52) U/L Alkaline Phosphatase (34-104) U/L Troponin I High Sens (0-20) pg/ml B-Natriuretic Peptide (0-100) pg/ml Total Protein (6.0-8.3) gm/dl Albumin (3.4-5.0) gm/dl Globulin (2.5-4.0) gm/dl Albumin/Globulin Ratio (0.9-2) Urine Color Yellow Urine Appearance Clear (Clear) Urine pH 5.0 (4.5-7.5) Ur Specific [place] 1.018 (1.000-1.030) Urine Protein 1+ H (Negative) Urine Glucose (UA) Negative (Negative) Urine Ketones Negative (Negative) Urine Blood Negative (Negative) Urine Nitrite Negative (Negative) Urine Bilirubin Negative (Negative) Urine Urobilinogen Negative (Negative) Ur Leukocyte Esterase Negative (Negative) Urine WBC (Auto) 1-5 (0-5) /hpf Urine RBC (Auto) 0-4 (0-4) /hpf U Hyaline Cast (Auto) 5-10 H (0-5) /lpf U Epithel Cells (Auto) 5-10 H (0-5) /lpf Urine Bacteria (Auto) Negative (Negative) Administered Medications Discontinued Medications Aspirin (Aspirin Chew 324 Mg) 324 mg PO NOW STA Stop: 06/22/23 21:55 Last Admin: 06/22/23 22:04 Dose: 324 mg Documented By: TIGRE Sodium Chloride (Nss) 500 mls @ 999 mls/hr IV .Q31M ONE Stop: 06/22/23 21:48 Last Infusion: 06/22/23 22:04 Dose: Infused Documented By: Admin: 06/22/23 21:23 Dose: 999 mls/hr Documented By: TIGRE Imaging Data Radiologist's Impression: Chest X-Ray 06/22/23 19:07 XR chest 1V portable HISTORY: dizziness COMPARISON: Chest 12/11/2022. FINDINGS: Slightly rotated study. No pneumothorax. No pleural effusions. The heart remains enlarged. Left-sided pacemaker/defibrillator again noted. No new focal lung consolidations to suggest a pneumonia. No acute fractures identified. There is mild central pulmonary vascular congestion without overt edema. IMPRESSION: Cardiomegaly and mild pulmonary vascular congestion. ACT 112: Negative or not required by law. Electronically signed by: Ignacio Alonzo M.D. 06/22/2023 7:56 PM Discharge Plan Visit Data Chief Complaint: Fall Stated Complaint: DIZZINESS, FALL ED Provider: Ann Ortiz Discharge Problem: Near syncope, Non-ST elevation [place] (NSTEMI), Acute exacerbation of CHF (congestive heart failure), Acute hyperkalemia Forms Stand Alone Forms: [facility] Prescriptions Prescriptions: No Action aspirin 81 mg Tablet,Delayed Release (Dr/Ec) 81 mg PO DAILY Rx Instructions: TAKE THIS MED WITH FOOD amiodarone 200 mg tablet 200 mg PO BID 60 Days Qty: 120 3RF metoprolol succinate 50 mg tablet extended release 24 hr 50 mg PO BID 60 Days Qty: 120 3RF levothyroxine 50 mcg tablet 50 mcg PO QAM Rx Instructions: TAKE 1 TABLET BY MOUTH 30 MINUTES PRIOR TO BREAKFAST OR OTHER MEDS furosemide 40 mg tablet 80 mg PO BID Centrum Silver 0.4 mg-300 mcg- 250 mcg Tablet 1 tab PO DAILY warfarin 6 mg tablet 0 mg PO DIRECTED Patient Comments: Per patient it "currently varies, they're bouncing him around trying to get it lined out" tamsulosin 0.4 mg capsule 0.4 mg PO QAM allopurinol 300 mg tablet 300 mg PO QAM potassium chloride 20 mEq tablet,ER particles/crystals See Rx Instructions .ROUTE .COMPLEX Rx Instructions: 50meq am and 40meq pm per pt Referrals Referrals: Ioana Son DO [Primary Care Provider] -
[2023-06-22 19:57] LABS: Troponin I High Sensitivity 57.3 pg/ml (0-20)
--- NOTE | 2023-06-22 19:58 | XRay Report ---
XR chest 1V portable HISTORY: dizziness COMPARISON: Chest 12/11/2022. FINDINGS: Slightly rotated study. No pneumothorax. No pleural effusions. The heart remains enlarged. Left-sided pacemaker/defibrillator again noted. No new focal lung consolidations to suggest a pneumon ia. No acute fractures identified. There is mild central pulmonary vascular congestion without overt edema. IMPRESSION: Cardiomegaly and mild pulmonary vascular congestion. ACT 112: Negative or not required by law. Electronically signed by: Ignacio Alonzo M.D. 06/22/2023 7:56 PM
[2023-06-22 21:16] LABS: INR 1.5 (0.9-1.1); Prothrombin Time 15.7 Seconds (9.0-12.0)
[2023-06-22 21:16] LABS: Appearance Urine Clear (Clear); Bacteria Urine Automated Negative (Negative); Bilirubin Urine Negative (Negative); Blood Urine Negative (Negative); Color Urine Yellow; Glucose Urine UA Negative (Negative); Ketones Urine Negative (Negative); Leukocyte Esterase Urine Negative (Negative); Nitrite Urine Negative (Negative); Protein Urine 1+ (Negative); RBC Urine Automated 0-4 /hpf (0-4); Specific Gravity Urine 1.018 (1.000-1.030); Urobilinogen Urine Negative (Negative)
[2023-06-22] MEDS ORDERED: SODIUM CHLORIDE 0.9% 500 ML IV ONE (21:18)
[2023-06-22] MEDS ORDERED: ASPIRIN CHEW 324 MG PO STA (21:54)
[2023-06-22] MEDS ORDERED: CALCIUM GLUCONATE 1,000 MG/60 ML BAG IV STA (22:00)
[2023-06-22] MEDS ORDERED: FUROSEMIDE INJ 20 MG/2 ML VIAL IV ONE (22:01)
[2023-06-23] MEDS ORDERED: WARFARIN SOD 5 MG TAB PO ONE (00:01)
[2023-06-23] MEDS ORDERED: FUROSEMIDE INJ 20 MG/2 ML VIAL IV ONE (00:04)
--- NOTE | 2023-06-23 00:10 | History & Physical Report ---
Date of Service June 22, 2023 Assessment & Plan (1) Syncope: Plan: 77-year-old male with past medical history significant for chronic systolic CHF with EF of 30% on echo November 2022, moderate size apical thrombus, atypical atrial flutter, paroxysmal atrial fibrillation, dilated nonischemic cardiomyopathy, s/p biventricular pacemaker defibrillator implantation, history of ventricular tachycardia on amiodarone, history of GI bleed, CKD stage IV, history of MUGS and iron deficiency anemia, hypertension, hyperlipidemia, gout, history of prostate cancer s/p radiation treatment, prediabetes, who lives alone at home and ambulates with a cane comes because of syncopal episode. Syncope History of chronic systolic CHF History of a flutter and paroxysmal defibrillation S/p biventricular pacemaker defibrillator implantation Will do pacemaker interrogation Monitor on telemetry Orthostatics Follow echo Consult cardiology in a.m. Possible acute on chronic systolic CHF EF of 30% echo in November [address] on IV Lasix 40 twice daily Daily weights and I's and O's Cardiology consult Elevation of troponin Initial troponin 57 and repeat is 63 Seems has chronic elevation Will follow serial cardiac enzymes and echo Cardiology consulted History of apical thrombus INR subtherapeutic at 1.[address] on low-dose IV heparin Seems on Coumadin 2.5 mg daily as per anticoagulation notes Will place on 4 mg and monitor Mild hyperkalemia Potassium 5.3 Will hold potassium supplements Will follow repeat labs History of paroxysmal atrial fibrillation and a flutter On amiodarone and metoprolol succinate and Coumadin Will monitor History of ventricular tachycardia On amiodarone CKD stage IV Presented creatinine of 2.15 Seems around baseline Hypertension On metoprolol Will monitor Gout On allopurinol Hypothyroidism On Synthyroid Follow TSH History of prostate cancer S/p radiation PSA again getting elevated Plan to restart on Lupron on Casodex Follows with urology DVT prophylaxis IV heparin until INR therapeutic Disposition Telemetry floor CODE STATUS. DNR/DNI as per my discussion with the patient History of Present Illness Chief Complaint: Syncope Primary Care Provider: Ioana Son DO 77-year-old male with past medical history significant for chronic systolic CHF with EF of 30% on echo November 2022, moderate size apical thrombus, atypical atrial flutter, paroxysmal atrial fibrillation, dilated nonischemic cardiomyopathy, s/p biventricular pacemaker defibrillator implantation, history of ventricular tachycardia on amiodarone, history of GI bleed, CKD stage IV, history of MUGS and iron deficiency anemia, hypertension, hyperlipidemia, gout, history of prostate cancer s/p radiation treatment, prediabetes, who lives alone at home and ambulates with a cane comes because of syncopal episode. Patient states he was coming out of the bathroom when he felt dizzy and the felt like passing out he lowered himself down ,did not hit his head he was not sure whether he passed out or not. He could not get up and called EMS. Currently resting comfortably and hemodynamically stable. Denies any headache. No runny nose or sore throat. No cough. No fevers. Denies chest pain. Has mild shortness of breath. No sweating. No nausea. No abdominal pain. Normal bowel and bladder movements. Past medical history. As mentioned above Past surgical history. Colonoscopy., Left and right heart catheterization. [place] tooth extraction. Vaginal biopsy of prostate. Tonsillectomy adenoidectomy. S/p biventricular pacemaker defibrillator Social history. No smoking. Alcohol occasional. No drug use. Family history. Mother had brain cancer. Father had NE. Paternal grandfather had NE. Uncle had NE.. Allergies Allergy/AdvReac Type Severity Reaction Status Date / Time CALLIE Inhibitors AdvReac Intermediate COUGH Verified 01/29/22 17:14 Sulfa (Sulfonamide AdvReac Intermediate DIARRHEA Verified 01/29/22 17:14 Antibiotics) Home Medications Medication Instructions Recorded Confirmed Type aspirin 81 mg tablet,delayed 81 mg PO DAILY 06/05/20 06/22/23 History release amiodarone 200 mg tablet 200 mg PO BID 60 days #120 tabs 06/07/20 06/22/23 Rx metoprolol succinate 50 mg 50 mg PO BID 60 days #120 tabs 06/07/20 06/22/23 Rx tablet,extended release 24 hr [id number]-oye-qahci acid 0.4 1 tab PO DAILY 12/24/21 06/22/23 History mg-lycopene 300 mcg-lutein 250 mcg tablet (Centrum Silver) furosemide 40 mg tablet 80 mg PO BID 12/11/22 06/22/23 History levothyroxine 50 mcg tablet 50 mcg PO QAM 12/11/22 06/22/23 History allopurinol 300 mg tablet 300 mg PO QAM 06/22/23 06/22/23 History potassium chloride 20 mEq See Rx Instructions .Route .COMPLEX 06/22/23 06/22/23 History tablet,extended release(part/cryst) tamsulosin 0.4 mg capsule 0.4 mg PO QAM 06/22/23 06/22/23 History warfarin 6 mg tablet 0 mg PO DIRECTED 06/22/23 06/22/23 History Past Med/Surg History Medical History Biventricular cardiac pacemaker in situ Chronic anticoagulation CKD (chronic kidney disease) stage 3, GFR 30-59 ml/min CKD (chronic kidney disease), stage IV Dyslipidemia GI bleed Gout HFrEF (heart failure with reduced ejection fraction) HTN (hypertension) Iron deficiency anemia 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 Joyner) initially followed with active surveillance PSAD - 0.434 TREATMENT: 1. 6 months of hormonal suppression 2. Status post completion of IMRT/IGRT 09/02/2016 received 8100 cGy" On 04/18/16 15:06 Lynne Henao wrote "STAGING: Prostate, adenocarcinoma, meenu 3 + 4, PSA 17.38, cT2b, group IIB Prostate gland size - 40 cc (by TR[facility], Dr. Joyner) PSAD - 0.434" Secondary hyperparathyroidism of renal origin Tubular adenoma of rectum Surgical History History of implantable cardioverter-defibrillator (ICD) placement History of tonsillectomy Hx of colonoscopy Family History Father Heart disease age 73 - [place] Uncle Heart disease paternal Grandfather (Paternal) Heart disease Social History Smoking Status: Never smoker Second Hand Exposure: Yes (Brother while visiting); Do You Dip or Chew Tobacco: No; Hx Alcohol Use: Yes Alcohol type: beer Alcohol Intake Frequency: Monthly or Less Hx Substance Use: No Preferred Language: Dutch Communication Ability: Effective Belt Loop Cutter Required: No Beliefs That Will Affect Care: None marital status: Current Living Situation: Alone Current Living Situation Comment: home alone How many Children do You have: 2 Feels Safe at Home: Yes Safety Concerns: Feels Safe At This Time Assistive Devices: Cane and Glasses Assistive Devices Comment: partial - lower Review of Systems Review of Systems: All systems reviewed & are unremarkable except as noted in HPI & below Physical Exam Physical Exam: General-Not in distress. Head- atraumatic Eyes- PERRL. ENT- oropharynx clear Neck- supple, no JVD. Lungs- clear to auscultation mild occasional wheezing no crackles. Heart- regular rhythm; no murmur, no gallop. Abdomen- normal bowel sounds, soft, nontender, no distension. Extremities- pretibial edema present, no erythema seen. Neuro- alert, oriented x 3; PERRL, no facial palsy; no dysarthria; moves extremities. Skin- warm & dry Results & Data Results & Data Vital Signs (Past 12 Hours) Vital Signs Temp Pulse Pulse Resp BP BP Pulse Ox 06/22/23 23:12 86 18 136/89 93 06/22/23 22:26 86 06/22/23 22:00 91 H 18 142/89 H 92 06/22/23 21:00 84 22 132/80 92 06/22/23 20:00 122/76 06/22/23 19:57 87 18 92 06/22/23 18:43 36.6 C 80 20 107/82 96 06/22/23 18:27 80 O2 Del Method O2 Flow Rate 06/22/23 23:12 Room Air 06/22/23 22:26 06/22/23 22:00 Room Air 06/22/23 21:00 Room Air 06/22/23 20:00 06/22/23 19:57 Room Air 06/22/23 18:43 Nasal Cannula 4 06/22/23 18:27 Diagnostic Findings Laboratory Results WBC 8.43 K/ul (4.8-10.8) 06/22/23 18:50 RBC 4.16 M/uL (4.70-6.10) L 06/22/23 18:50 Hgb 12.7 g/dl (14.0-18.0) L 06/22/23 18:50 Hct 40.5 % (42.0-52.0) L 06/22/23 18:50 MCV 97.4 fL (80.0-100.0) 06/22/23 18:50 MCH 30.5 pg (25.0-34.0) 06/22/23 18:50 MCHC 31.4 g/dL (32.0-36.0) L 06/22/23 18:50 RDW Std Deviation 57.5 fL (36.4-46.3) H 06/22/23 18:50 RDW Coeff of Santosh 16.1 % (11.5-14.5) H 06/22/23 18:50 Plt Count 159 K/uL (130-400) 06/22/23 18:50 MPV 12.8 fL (9.4-12.4) H 06/22/23 18:50 Immature Gran % (Auto) 0.7 % 06/22/23 18:50 Neut % (Auto) 87.0 % 06/22/23 18:50 Lymph % (Auto) 7.5 % 06/22/23 18:50 [place] % (Auto) 4.6 % 06/22/23 18:50 Eos % (Auto) 0.0 % 06/22/23 18:50 Baso % (Auto) 0.2 % 06/22/23 18:50 Neut # (Auto) 7.33 K/uL (1.40-6.50) H 06/22/23 18:50 Lymph # (Auto) 0.63 K/uL (1.20-3.40) L 06/22/23 18:50 [place] # (Auto) 0.39 K/uL (0.11-0.59) 06/22/23 18:50 Eos # (Auto) 0.00 K/uL (0.00-0.50) 06/22/23 18:50 Baso # (Auto) 0.02 K/uL (0.00-0.20) 06/22/23 18:50 Immature Gran # (Auto) 0.06 K/uL (0.01-0.20) 06/22/23 18:50 PT 15.7 Seconds (9.0-12.0) H 06/22/23 20:23 INR 1.5 (0.9-1.1) H 06/22/23 20:23 Sodium 138 mmol/L (136-145) 06/22/23 18:50 Potassium 5.3 mmol/L (3.5-5.1) H 06/22/23 18:50 Chloride 105 mmol/L (98-107) 06/22/23 18:50 Carbon Dioxide 24 mmol/L (21-32) 06/22/23 18:50 Anion Gap 9 (3-11) 06/22/23 18:50 BUN 33 mg/dl (6-23) H 06/22/23 18:50 Creatinine 2.15 mg/dl (0.6-1.4) H 06/22/23 18:50 Est Cr Clr Drug Dosing 37.7 ml/min 06/22/23 18:50 Est GFR ( Amer) 33.0 ml/min 06/22/23 18:50 Est GFR (Non-Af Amer) 28.4 ml/min 06/22/23 18:50 BUN/Creatinine Ratio 15.3 (10-20) 06/22/23 18:50 Glucose 148 mg/dl (70-99(Fasting)) H 06/22/23 18:50 Calcium 8.3 mg/dl (8.6-10.3) L 06/22/23 18:50 Magnesium 2.1 mg/dl (1.7-2.4) 06/22/23 18:50 Total Bilirubin 0.6 mg/dl (0.2-1.0) 06/22/23 18:50 AST 79 U/L (13-39) H 06/22/23 18:50 ALT 92 U/L (7-52) H 06/22/23 18:50 Alkaline Phosphatase 81 U/L (34-104) 06/22/23 18:50 Troponin I High Sens 63.6 pg/ml (0-20) H* 06/22/23 21:00 B-Natriuretic Peptide 1195 pg/ml (0-100) H 06/22/23 21:00 Total Protein 6.8 gm/dl (6.0-8.3) 06/22/23 18:50 Albumin 3.7 gm/dl (3.4-5.0) 06/22/23 18:50 Globulin 3.1 gm/dl (2.5-4.0) 06/22/23 18:50 Albumin/Globulin Ratio 1.2 (0.9-2) 06/22/23 18:50 Urine Color Yellow 06/22/23 21:05 Urine Appearance Clear (Clear) 06/22/23 21:05 Urine pH 5.0 (4.5-7.5) 06/22/23 21:05 Ur Specific [place] 1.018 (1.000-1.030) 06/22/23 21:05 Urine Protein 1+ (Negative) H 06/22/23 21:05 Urine Glucose (UA) Negative (Negative) 06/22/23 21:05 Urine Ketones Negative (Negative) 06/22/23 21:05 Urine Blood Negative (Negative) 06/22/23 21:05 Urine Nitrite Negative (Negative) 06/22/23 21:05 Urine Bilirubin Negative (Negative) 06/22/23 21:05 Urine Urobilinogen Negative (Negative) 06/22/23 21:05 Ur Leukocyte Esterase Negative (Negative) 06/22/23 21:05 Urine WBC (Auto) 1-5 /hpf (0-5) 06/22/23 21:05 Urine RBC (Auto) 0-4 /hpf (0-4) 06/22/23 21:05 U Hyaline Cast (Auto) 5-10 /lpf (0-5) H 06/22/23 21:05 U Epithel Cells (Auto) 5-10 /lpf (0-5) H 06/22/23 21:05 Urine Bacteria (Auto) Negative (Negative) 06/22/23 21:05 Impressions Chest X-Ray 06/22/23 19:07 XR chest 1V portable HISTORY: dizziness COMPARISON: Chest 12/11/2022. FINDINGS: Slightly rotated study. No pneumothorax. No pleural effusions. The heart remains enlarged. Left-sided pacemaker/defibrillator again noted. No new focal lung consolidations to suggest a pneumonia. No acute fractures identified. There is mild central pulmonary vascular congestion without overt edema. IMPRESSION: Cardiomegaly and mild pulmonary vascular congestion. ACT 112: Negative or not required by law. Electronically signed by: Ignacio Alonzo M.D. 06/22/2023 7:56 PM ECG Additional Comments: ECG. Ventricular paced rhythm rate of 88. Code Status & VTE Plan VTE Prophylaxis Plan VTE Prophylaxis will be ordered: Yes
[2023-06-23] MEDS ORDERED: NITROGLYCERIN SL 0.4 MG/TAB TAB SL PRN (01:57)
[2023-06-23] MEDS ORDERED: Heparin IV Adult Wt-Based Low-Dose *NO* INITIAL Bolus Protocol IV SCH (02:01)
[2023-06-23] MEDS: HEPARIN SODIUM/DEXTROSE 25,000 UNITS/500 ML BAG IV SCH (03:42)
[2023-06-23] MEDS: guaiFENesin 600 MG TABCR PO SCH ×3 (05:55→20:49)
[2023-06-23] MEDS: LEVOTHYROXINE SODIUM 50 MCG TABLET PO SCH (05:55)
[2023-06-23 06:01] LABS: Basophils # (auto) 0.02 K/uL (0.00-0.20); Basophils % (auto) 0.3 %; Hematocrit (blood only) 40.3 % (42.0-52.0); Hemoglobin 12.9 g/dl (14.0-18.0); Immature Granulocytes # (auto) 0.05 K/uL (0.01-0.20); Immature Granulocytes % (auto) 0.6 %; Lymphocytes # (auto) 1.15 K/uL (1.20-3.40); Lymphocytes % (auto) 14.8 %; Mean Corpuscular Hemoglobin 31.2 pg (25.0-34.0); Mean Corpuscular Volume 97.3 fL (80.0-100.0); Mean Platelet Volume 12.7 fL (9.4-12.4); Monocytes # (auto) 0.57 K/uL (0.11-0.59); Monocytes % (auto) 7.3 %; Platelet Count 165 K/uL (130-400); RDW Standard Deviation 57.5 fL (36.4-46.3); Red Blood Count 4.14 M/uL (4.70-6.10); White Blood Count 7.79 K/ul (4.8-10.8)
[2023-06-23 06:17] LABS: BUN Creatinine Ratio 15.4 (10-20); Calcium 8.6 mg/dl (8.6-10.3); Creatinine Clr Calc Pharmacy 34.6 ml/min; Est GFR (African American) 30.7 ml/min; Est GFR (Non-African American) 26.5 ml/min; Magnesium 2.1 mg/dl (1.7-2.4); Potassium 5.1 mmol/L (3.5-5.1)
[2023-06-23 06:29] LABS: INR 1.5 (0.9-1.1); Prothrombin Time 15.7 Seconds (9.0-12.0)
[2023-06-23 06:31] LABS: Troponin I High Sensitivity 60.3 pg/ml (0-20)
[2023-06-23 06:32] LABS: Thyroid Stimulating Hormone 2.802 uIu/ml (0.300-4.500)
--- NOTE | 2023-06-23 06:51 | Electrocardiogram Report ---
Test Reason : Blood Pressure : / mmHG Vent. Rate : 088 BPM Atrial Rate : 078 BPM P-R Int : 000 ms QRS Dur : 210 ms QT Int : 494 ms P-R-T Axes : 000 197 053 degrees QTc Int : 597 ms Ventricular-paced rhythm Underlying atrial fibrillation Abnormal ECG When compared with ECG of 11-DEC-2022 06:13, Vent. rate has increased BY 12 BPM Confirmed by Marquise Larsen ([id number]) on 06/23/2023 6:50:57 AM Referred By: REFERRED SELF Confirmed By:Marquise Larsen
--- NOTE | 2023-06-23 07:17 | Cardiology Consultation ---
Date of Consultation June 23, 2023 Assessment & Plan (1) Acute exacerbation of CHF (congestive heart failure): (2) Nonischemic dilated cardiomyopathy: (3) PAF (paroxysmal atrial fibrillation): (4) CKD (chronic kidney disease), stage IV: (5) Biventricular cardiac pacemaker in situ: (6) Elevated troponin: (7) Ventricular tachycardia, paroxysmal: On chronic amiodarone therapy Plan Patient is a complex 77-year-old male with longstanding history of nonischemic cardiomyopathy with class III plus compensated congestive heart failure, prior paroxysmal atrial fibrillation and paroxysmal ventricular tachycardia on chronic amiodarone therapy. Past apical thrombus, not present on current echocardiogram Patient presents this admission noting increasing cough orthopnea and declining exercise capacity over the past 1 months time. Yesterday presyncopal event slumping to the floor and unable to move Exam consistent with decompensated heart failure, atrial fibrillation with ventricular paced rhythm. Echocardiogram reflects declining LV systolic function and worsening mitral insufficiency. Chronic troponin elevation consistent underlying cardiac disease and renal insufficiency Recommendations: Continue IV diuresis following renal function Anticoagulation with IV heparin Interrogate pacer defibrillator assess onset of atrial fibrillation timing Continue prehospital medications with metoprolol succinate and amiodarone Severe mitral insufficiency a concern, consider MitraClip evaluation History of Present Illness Reason for Consultation: Near syncope Requesting Physician: Dr. Hill Attending Physician: Aisha Hill MD History of Present Illness Patient is a 77-year-old male with complex cardiac history which includes 1. Nonischemic dilated cardiomyopathy with severe LV dysfunction diagnosed October of 2009. 2. Chronically compensated class II-III congestive heart failure, systolic. 3. Status post biventricular pacemaker insertion 09/04/2010 with generator replacement 10/28/2014, 07/09/2022 [employer] Claria MRI FITTER UP-D SureScan [id number] 4. Labile hypertension. 5. Monoclonal gammopathy IgM kappa paraproteinemia with chronic anemia iron deficient 6. Prostate carcinoma, status post completion of radiation therapy approximately 3 weeks ago 7. CKD stage 3-4 8. Dyslipidemia with variable statin tolerance 9. Paroxysmal atrial fibrillation/flutter 10. Apical LV thrombus 11. Frequent ventricular ectopy, nonsustained and sustained ventricular tachycardia on chronic amiodarone therapy Patient presents this admission noting having felt poorly for the past 4 to 6 weeks with nearly persistent cough. Yesterday very fatigued and was walking on through his home and then suddenly "melted to the floor". No syncope or near syncope just too weak to hold himself up. Was unable to stand. Paramedics summoned. Denies any fevers or chills notes no bleeding difficulties. Uncertain of any acute weight change. Severe cough times at least 1 month, noted had to leave hunting camp due to persistent cough, Appetite fair Allergies Allergy/AdvReac Type Severity Reaction Status Date / Time CALLIE Inhibitors AdvReac Intermediate COUGH Verified 01/29/22 17:14 Sulfa (Sulfonamide AdvReac Intermediate DIARRHEA Verified 01/29/22 17:14 Antibiotics) Home Medications Medication Instructions Recorded Confirmed Type aspirin 81 mg tablet,delayed 81 mg PO DAILY 06/05/20 06/22/23 History release amiodarone 200 mg tablet 200 mg PO BID 60 days #120 tabs 06/07/20 06/22/23 Rx metoprolol succinate 50 mg 50 mg PO BID 60 days #120 tabs 06/07/20 06/22/23 Rx tablet,extended release 24 hr vdhpaugi-zcv-yzzvs acid 0.4 1 tab PO DAILY 12/24/21 06/22/23 History mg-lycopene 300 mcg-lutein 250 mcg tablet (Centrum Silver) furosemide 40 mg tablet 80 mg PO BID 12/11/22 06/22/23 History levothyroxine 50 mcg tablet 50 mcg PO QAM 12/11/22 06/22/23 History allopurinol 300 mg tablet 300 mg PO QAM 06/22/23 06/22/23 History potassium chloride 20 mEq See Rx Instructions .Route .COMPLEX 06/22/23 06/22/23 History tablet,extended release(part/cryst) tamsulosin 0.4 mg capsule 0.4 mg PO QAM 06/22/23 06/22/23 History warfarin 6 mg tablet 0 mg PO DIRECTED 06/22/23 06/22/23 History Patient History Medical History HFrEF (heart failure with reduced ejection fraction) Left ventricular apical thrombus Biventricular cardiac pacemaker in situ Nonischemic dilated cardiomyopathy Gout CKD (chronic kidney disease), stage IV Iron deficiency anemia Dyslipidemia Prediabetes Chronic anticoagulation Secondary hyperparathyroidism of renal origin HTN (hypertension) MGUS (monoclonal gammopathy of unknown significance) Tubular adenoma of rectum GI bleed CKD (chronic kidney disease) stage 3, GFR 30-59 ml/min NICM (nonischemic cardiomyopathy) PAF (paroxysmal atrial fibrillation) Pacemaker Prostate cancer (03/15/13) "STAGING: Prostate, adenocarcinoma, meenu 3 + 4, PSA 17.38, cT2b, group IIB Prostate gland size - 40 cc (by [facility], Dr. Joyner) initially followed with active surveillance PSAD - 0.434 TREATMENT: 1. 6 months of hormonal suppression 2. Status post completion of IMRT/IGRT 09/02/2016 received 8100 cGy" On 04/18/16 15:06 Lynne Henao wrote "STAGING: Prostate, adenocarcinoma, meenu 3 + 4, PSA 17.38, cT2b, group IIB Prostate gland size - 40 cc (by [facility], Dr. Joyner) PSAD - 0.434" Surgical History History of tonsillectomy History of implantable cardioverter-defibrillator (ICD) placement Hx of colonoscopy Family History Father Heart disease age 73 - [place] Uncle Heart disease paternal Grandfather (Paternal) Heart disease Social History Smoking Status: Never smoker Second Hand Exposure: Yes (Brother while visiting); Do You Dip or Chew Tobacco: No; Hx Alcohol Use: Yes Alcohol type: beer Alcohol Intake Frequency: Monthly or Less Hx Substance Use: No Preferred Language: Hebrew Communication Ability: Effective Radio Host Required: No Beliefs That Will Affect Care: None marital status: Current Living Situation: Alone Current Living Situation Comment: home alone How many Children do You have: 2 Feels Safe at Home: Yes Safety Concerns: Feels Safe At This Time Assistive Devices: Cane and Glasses Assistive Devices Comment: partial - lower Review of Systems Review of Systems: All systems reviewed & are unremarkable except as noted in HPI & below Physical Exam Constitutional: WD/WN, vitals as above no acute distress Eyes: PERRL, conjunctivae normal, anicteric sclerae ENMT: external ear and nose normal, oropharynx normal Neck: trachea midline, no thyromegaly Respiratory: + cough Auscultation: + diminished amanda ng sounds and + wheezes Cardiovascular: Rate/Rhythm: regular rhythm (Paced) Heart Sounds: normal S1 and normal S2 Vessels: no JVD Extremities: + edema (2+ stasis edema to above the knee) Chest (Breasts): Chest: + pacemaker (Pacer defibrillator without irritation) Gastrointestinal (Abdomen): normal bowel sounds, soft, nontender, no hepatosplenomegaly Musculoskeletal: no cyanosis or clubbing, extremities motor strength 5/5 Results & Data Vital Signs (Past 12 Hours) Vital Signs Temp Pulse Pulse Resp BP Pulse Ox O2 Del Method 06/23/23 03:00 36.8 C 56 L 18 126/82 99 Room Air 06/23/23 02:00 36.7 C 89 23 103/70 91 Room Air 06/23/23 02:00 36.7 C 89 24 103/70 91 Room Air 06/23/23 02:00 Room Air 06/23/23 01:39 36.7 C 89 23 103/70 91 Room Air 06/23/23 01:08 65 18 124/80 93 Room Air 06/23/23 00:34 75 20 132/87 92 Room Air 06/22/23 23:12 86 18 136/89 93 Room Air 06/22/23 22:26 86 06/22/23 22:00 91 H 18 142/89 H 92 Room Air 06/22/23 21:00 84 22 132/80 92 Room Air 06/22/23 20:00 122/76 06/22/23 19:57 87 18 92 Room Air Laboratory Results Laboratory Results - last 24 hr 06/22/23 06/22/23 06/22/23 18:50 20:23 21:00 WBC 8.43 RBC 4.16 L Hgb 12.7 L Hct 40.5 L MCV 97.4 MCH 30.5 MCHC 31.4 L RDW Std Deviation 57.5 H RDW Coeff of Santosh 16.1 H Plt Count 159 MPV 12.8 H Immature Gran % (Auto) 0.7 Neut % (Auto) 87.0 Lymph % (Auto) 7.5 [place] % (Auto) 4.6 Eos % (Auto) 0.0 Baso % (Auto) 0.2 Neut # (Auto) 7.33 H Lymph # (Auto) 0.63 L [place] # (Auto) 0.39 Eos # (Auto) 0.00 Baso # (Auto) 0.02 Immature Gran # (Auto) 0.06 PT Cancelled 15.7 H INR Cancelled 1.5 H Sodium 138 Potassium 5.3 H Chloride 105 Carbon Dioxide 24 Anion Gap 9 BUN 33 H Creatinine 2.15 H Est Cr Clr Drug Dosing 37.7 Est GFR ( Amer) 33.0 Est GFR (Non-Af Amer) 28.4 BUN/Creatinine Ratio 15.3 Glucose 148 H Estimat Average Glucose Hemoglobin A1c Calcium 8.3 L Magnesium 2.1 Total Bilirubin 0.6 AST 79 H ALT 92 H Alkaline Phosphatase 81 Troponin I High Sens 57.3 H* 63.6 H* B-Natriuretic Peptide 1195 H Total Protein 6.8 Albumin 3.7 Globulin 3.1 Albumin/Globulin Ratio 1.2 TSH Urine Color Urine Appearance Urine pH Ur Specific [place] Urine Protein Urine Glucose (UA) Urine Ketones Urine Blood Urine Nitrite Urine Bilirubin Urine Urobilinogen Ur Leukocyte Esterase Urine WBC (Auto) Urine RBC (Auto) U Hyaline Cast (Auto) U Epithel Cells (Auto) Urine Bacteria (Auto) 06/22/23 06/23/23 21:05 05:09 WBC 7.79 RBC 4.14 L Hgb 12.9 L Hct 40.3 L MCV 97.3 MCH 31.2 MCHC 32.0 RDW Std Deviation 57.5 H RDW Coeff of Santosh 16.0 H Plt Count 165 MPV 12.7 H Immature Gran % (Auto) 0.6 Neut % (Auto) 77.0 Lymph % (Auto) 14.8 [place] % (Auto) 7.3 Eos % (Auto) 0.0 Baso % (Auto) 0.3 Neut # (Auto) 6.00 Lymph # (Auto) 1.15 L [place] # (Auto) 0.57 Eos # (Auto) 0.00 Baso # (Auto) 0.02 Immature Gran # (Auto) 0.05 PT 15.7 H INR 1.5 H Sodium 139 Potassium 5.1 Chloride 105 Carbon Dioxide 25 Anion Gap 9 BUN 35 H Creatinine 2.28 H Est Cr Clr Drug Dosing 34.6 Est GFR ( Amer) 30.7 Est GFR (Non-Af Amer) 26.5 BUN/Creatinine Ratio 15.4 Glucose 135 H Estimat Average Glucose 137 Hemoglobin A1c 6.4 H Calcium 8.6 Magnesium 2.1 Total Bilirubin AST ALT Alkaline Phosphatase Troponin I High Sens 60.3 H* B-Natriuretic Peptide Total Protein Albumin Globulin Albumin/Globulin Ratio TSH 2.802 Urine Color Yellow Urine Appearance Clear Urine pH 5.0 Ur Specific [place] 1.018 Urine Protein 1+ H Urine Glucose (UA) Negative Urine Ketones Negative Urine Blood Negative Urine Nitrite Negative Urine Bilirubin Negative Urine Urobilinogen Negative Ur Leukocyte Esterase Negative Urine WBC (Auto) 1-5 Urine RBC (Auto) 0-4 U Hyaline Cast (Auto) 5-10 H U Epithel Cells (Auto) 5-10 H Urine Bacteria (Auto) Negative Diagnostic Findings Echocardiogram 06/23/2023 The left ventricle is moderately dilated. There is mild concentric left ventricular hypertrophy. Apical wall motion abnormality may reflect pacemaker activation. There is severe global hypokinesis of the left ventricle. Ejection Fraction = 15-20%. The left atrium is severely dilated. The mitral valve annulus is dilated. The mitral valve leaflets are mildly thickened There is severe mitral regurgitation. There is moderate to severe tricuspid regurgitation. Right ventricular systolic pressure is elevated at 40-50mmHg.
[2023-06-23 07:23] LABS: Estimated Average Glucose 137 mg/dl; Hemoglobin A1C 6.4 % (4.5-5.6)
[2023-06-23] MEDS: allopurinoL 300 MG TAB PO SCH (08:33)
[2023-06-23] MEDS: TAMSULOSIN HCL 0.4 MG CAP PO SCH (08:34)
[2023-06-23] MEDS: ASPIRIN 81 MG ECTAB PO SCH (08:36)
[2023-06-23] MEDS: CEROVITE ADV FORMULA TAB PO SCH (08:37)
[2023-06-23] MEDS: METOPROLOL SUCC 50MG EXT REL TAB PO SCH ×2 (08:44→20:49)
[2023-06-23] MEDS: FUROSEMIDE 40 MG/4 ML VIAL IV SCH ×2 (08:44→16:38)
[2023-06-23] MEDS: AMIODARONE 200 MG TAB PO SCH ×2 (08:45→20:49)
[2023-06-23 11:05] LABS: ANTI-Xa, UFH(UnfractionatedHep 0.23 IU/ml (0.3-0.7)
--- NOTE | 2023-06-23 12:21 | Hospitalist Progress Note ---
Date of Service June 23, 2023 Assessment & Plan (1) Syncope: Plan: 77-year-old male with past medical history significant for chronic systolic CHF with EF of 30% on echo November 2022, moderate size apical thrombus, atypical atrial flutter, paroxysmal atrial fibrillation, dilated nonischemic cardiomyopathy, s/p biventricular pacemaker defibrillator implantation, history of ventricular tachycardia on amiodarone, history of GI bleed, CKD stage IV, history of MUGS and iron deficiency anemia, hypertension, hyperlipidemia, gout, history of prostate cancer s/p radiation treatment, prediabetes, who lives alone at home and ambulates with a cane comes because of syncopal episode. Syncope Likely secondary to cardiogenic cause Acute exacerbation of chronic systolic CHF Complicated by atrial flutter and paroxysmal defibrillation S/p biventricular pacemaker defibrillator implantation Will do pacemaker interrogation-awaited Monitor on telemetry-remains in paced rhythm Repeat echocardiogram showed-LV is moderately dilated, mild concentric LVH, apical wall motion abnormality may reflect pacemaker activation, there is severe global hypokinesis of the left ventricle with EF 15 to 20%, left atrium is severely dilated, mitral valve annulus is dilated, there is severe mitral regurgitation, there is moderate to severe tricuspid regurgitation, RV systolic function is elevated to 40 to 50 mmHg. In comparison to prior study of 12/05/2022 LV systolic function has declined and mitral insufficiency is worse EF of 30% echo in November [address] on IV Lasix 40 twice daily Daily weights and I's and O's Appreciate cardiology input and recommendation Clinically not any better Acute decompensated systolic heart failure as above Lasix will be given intravenously 40 mg twice daily Monitor intake and output Elevation of troponin-troponin is chronically elevated due to underlying cardiac disease and renal insufficiency Initial troponin 57 and repeat is 63 Doubt any ACS History of apical thrombus INR subtherapeutic at 1.[address] on low-dose IV heparin Seems on Coumadin 2.5 mg daily as per anticoagulation notes Will place on 4 mg and monitor Repeat echo did not show any presence of apical thrombus Mild hyperkalemia Potassium 5.3 Will hold potassium supplements Will follow repeat labs History of paroxysmal atrial fibrillation and a flutter On amiodarone and metoprolol succinate and Coumadin Will monitor History of ventricular tachycardia On amiodarone CKD stage IV Presented creatinine of 2.15 Seems around baseline-creatinine slightly elevated at 2.28 Hypertension On metoprolol Will monitor Gout On allopurinol Hypothyroidism On Synthyroid Follow TSH History of prostate cancer S/p radiation PSA again getting elevated Plan to restart on Lupron on Casodex Follows with urology DVT prophylaxis IV heparin until INR therapeutic Disposition Telemetry floor CODE STATUS. DNR/DNI as per my discussion with the patient Admission and Anticipated Discharge Date Admission Date: June 23, 2023 Subjective 06/23/2023 The patient was seen and examined in telemetry unit He has been complaining of shortness of breath and has profuse wheezing Saturating normally on room air Denies any chest pain and/or palpitation Review of Systems Review of Systems: All systems reviewed and are unremarkable except as noted below Respiratory: Shortness of breath at rest Physical Exam Physical Exam: Lying in bed with moderate shortness of breath Constitutional: well developed, well nourished, + ill appearing and + obese Eyes: PERRL, conjunctivae normal, anicteric sclerae ENMT: external ear and nose normal, oropharynx normal Neck: trachea midline, no thyromegaly Respiratory: + respiratory distress (Moderate respira tory distress at rest) Auscultation: + diminished lung sounds and + wheezes (Moderate wheezing all over) Cardiovascular: Rate/Rhythm: regular rate and regular rhythm; not tachycardic Heart Sounds: normal S1, normal S2 and + murmur (2/6 ESM over precordium) Extremities: + edema (2+ edema bilaterally ) Gastrointestinal (Abdomen): Inspection/Auscultation: normal bowel sounds; abdomen not distended Percussion/Palpation: abdomen soft; abdomen nontender Musculoskeletal: No acute arthritis involving any joint Neurologic: normal touch/pain/proprioception and moves all extremities; no focal motor deficits Remains generally very weak and lethargy Lymphatic: no cervical or axillary lymphadenopathy Results & Data Results & Data Vital Signs (Past 12 Hours) Vital Signs Temp Pulse Resp BP Pulse Ox O2 Del Method 06/23/23 03:00 36.8 C 56 L 18 126/82 99 Room Air 06/23/23 02:00 36.7 C 89 23 103/70 91 Room Air 06/23/23 02:00 36.7 C 89 24 103/70 91 Room Air 06/23/23 02:00 Room Air 06/23/23 01:39 36.7 C 89 23 103/70 91 Room Air 06/23/23 01:08 65 18 124/80 93 Room Air 06/23/23 00:34 75 20 132/87 92 Room Air Laboratory Results Short CBC 06/22/23 06/23/23 Range/Units 18:50 05:09 WBC 8.43 7.79 (4.8-10.8) K/ul Hgb 12.7 L 12.9 L (14.0-18.0) g/dl Hct 40.5 L 40.3 L (42.0-52.0) % Plt Count 159 165 (130-400) K/uL BMP 06/22/23 06/23/23 18:50 05:09 Sodium 138 139 Potassium 5.3 H 5.1 Chloride 105 105 Carbon Dioxide 24 25 BUN 33 H 35 H Creatinine 2.15 H 2.28 H Glucose 148 H 135 H Calcium 8.3 L 8.6 Liver Function 06/22/23 Range/Units 18:50 Total Bilirubin 0.6 (0.2-1.0) mg/dl AST 79 H (13-39) U/L ALT 92 H (7-52) U/L Alkaline Phosphatase 81 (34-104) U/L Albumin 3.7 (3.4-5.0) gm/dl Urine 06/22/23 Range/Units 21:05 Urine Color Yellow Urine Appearance Clear (Clear) Urine pH 5.0 (4.5-7.5) Ur Specific [place] 1.018 (1.000-1.030) Urine Protein 1+ H (Negative) Urine Glucose (UA) Negative (Negative) Medications Administered Current Inpatient Medications Acetaminophen (Acetaminophen 325 Mg Tab) 650 mg PO Q4H PRN PRN Reason: Pain or Fever Stop: 07/23/23 01:56 Allopurinol (Allopurinol 300 Mg Tab) 300 mg PO QAM [facility] Stop: 07/23/23 08:59 Last Admin: 06/23/23 08:33 Dose: 300 mg Amiodarone HCl (Amiodarone 200 Mg Tab) 200 mg PO BID [facility] Stop: 07/23/23 08:59 Last Admin: 06/23/23 08:45 Dose: 200 mg Aspirin (Aspirin 81 Mg Ectab) 81 mg PO DAILY [facility] Stop: 07/23/23 08:59 Last Admin: 06/23/23 08:36 Dose: 81 mg Furosemide (Furosemide 40 Mg/4 Ml Vial) 40 mg IV BID17 [facility] Stop: 07/23/23 08:59 Last Admin: 06/23/23 08:44 Dose: 40 mg Guaifenesin (Guaifenesin 600 Mg Tabcr) 600 mg PO Q12 [facility] Stop: 07/23/23 04:59 Last Admin: 06/23/23 08:36 Dose: 600 mg Heparin Sodium/Dextrose (Heparin Sodium/Dextrose) 25,000 units in 500 mls @ 22 mls/hr IV .[id number] [facility]; Protocol Stop: 07/23/23 01:56 Last Titration: 06/23/23 11:27 Dose: 1,100 units/hr, 22 mls/hr Levothyroxine Sodium (Levothyroxine Sodium 50 Mcg Tablet) 50 mcg PO DAILYBB [facility] Stop: 07/23/23 06:29 Last Admin: 06/23/23 05:55 Dose: 50 mcg Metoprolol Succinate (Metoprolol Succ 50mg Ext Rel Tab) 50 mg PO BID [facility] Stop: 07/23/23 08:59 Last Admin: 06/23/23 08:44 Dose: 50 mg Multivitamins/Minerals (Cerovite Adv Formula Tab) 1 tab PO DAILY [facility] Stop: 07/23/23 08:59 Last Admin: 06/23/23 08:37 Dose: 1 tab Nitroglycerin (Nitroglycerin Sl 0.4 Mg/Tab Tab) 0.4 mg SL Q5M PRN PRN Reason: Chest Pain Stop: 07/23/23 01:56 Tamsulosin HCl (Tamsulosin Hcl 0.4 Mg Cap) 0.4 mg PO QAM [facility] Stop: 07/23/23 08:59 Last Admin: 06/23/23 08:34 Dose: 0.4 mg Warfarin Sodium (Warfarin Sod 4 Mg Tab) 4 mg PO DAILY@1600 [facility] Stop: 07/23/23 15:59
[2023-06-23] MEDS: WARFARIN SOD 4 MG TAB PO SCH (16:37)
[2023-06-23 17:20] LABS: ANTI-Xa, UFH(UnfractionatedHep 0.27 IU/ml (0.3-0.7)
[2023-06-23 23:47] LABS: ANTI-Xa, UFH(UnfractionatedHep 0.18 IU/ml (0.3-0.7)
[2023-06-24] MEDS ORDERED: LEVALBUTEROL 1.25MG/0.5ML NEB NEB STA (00:13)
[2023-06-24] MEDS ORDERED: HEPARIN SOD (PORCINE) 1000 UNIT/ML IV ONE (00:15)
[2023-06-24] MEDS ORDERED: FUROSEMIDE 40 MG/4 ML VIAL IV ONE (00:30)
[2023-06-24] MEDS ORDERED: LEVALBUTEROL 0.31MG/3 ML VIAL ONE (00:47)
[2023-06-24] MEDS ORDERED: LEVALBUTEROL 1.25 MG/3 ML NEB ONE (00:48)
[2023-06-24] MEDS: HEPARIN SODIUM/DEXTROSE 25,000 UNITS/500 ML BAG IV SCH ×2 (03:58→21:50)
[2023-06-24] MEDS: LEVOTHYROXINE SODIUM 50 MCG TABLET PO SCH (05:37)
[2023-06-24 06:41] LABS: Basophils # (auto) 0.01 K/uL (0.00-0.20); Basophils % (auto) 0.1 %; Eosinophils # (auto) 0.01 K/uL (0.00-0.50); Eosinophils % (auto) 0.1 %; Hemoglobin 11.4 g/dl (14.0-18.0); Immature Granulocytes # (auto) 0.02 K/uL (0.01-0.20); Immature Granulocytes % (auto) 0.3 %; Lymphocytes # (auto) 1.05 K/uL (1.20-3.40); Lymphocytes % (auto) 14.6 %; Mean Corpuscular Hemoglobin 30.3 pg (25.0-34.0); Mean Corpuscular Hgb Conc 31.7 g/dL (32.0-36.0); Mean Corpuscular Volume 95.7 fL (80.0-100.0); Mean Platelet Volume 12.1 fL (9.4-12.4); Monocytes # (auto) 0.52 K/uL (0.11-0.59); Monocytes % (auto) 7.2 %; Neutrophils # (auto) 5.59 K/uL (1.40-6.50); Neutrophils % (auto) 77.7 %; Platelet Count 141 K/uL (130-400); RDW Coefficient of Variation 15.9 % (11.5-14.5); Red Blood Count 3.76 M/uL (4.70-6.10)
[2023-06-24 07:02] LABS: BUN Creatinine Ratio 20.3 (10-20); Calcium 7.9 mg/dl (8.6-10.3); Creatinine Clr Calc Pharmacy 32.3 ml/min; Est GFR (African American) 29.5 ml/min; Est GFR (Non-African American) 25.4 ml/min
[2023-06-24 07:06] LABS: ANTI-Xa, UFH(UnfractionatedHep 0.56 IU/ml (0.3-0.7); INR 1.8 (0.9-1.1); Prothrombin Time 19.2 Seconds (9.0-12.0)
--- NOTE | 2023-06-24 07:40 | XRay Report ---
XR chest 1V portable HISTORY: 77 years-old Male sob acute shortness of breath COMPARISON: 06/22/2023 TECHNIQUE: AP view of the chest FINDINGS: Cardiac silhouette is enlarged. Left subclavian pacer/AICD. Pulmonary vascular congestion. No pneumot horax, pleural effusion, airspace consolidation or overt pulmonary edema. Mild subsegmental bibasilar atelectasis. IMPRESSION: Cardiomegaly with pulmonary vascular congestion. ACT 112: Negative or not required by law. The above report was generated using voice recognition software. It may contain grammatical, syntax o r spelling errors. Electronically signed by: Filiberto Metcalf M.D. 06/24/2023 7:38 AM
[2023-06-24] MEDS: ACETAMINOPHEN 325 MG TAB PO PRN ×2 (08:03→17:05)
[2023-06-24] MEDS: AMIODARONE 200 MG TAB PO SCH ×2 (08:04→21:55)
[2023-06-24] MEDS: guaiFENesin 600 MG TABCR PO SCH ×2 (08:04→21:56)
[2023-06-24] MEDS: METOPROLOL SUCC 50MG EXT REL TAB PO SCH ×2 (08:04→21:56)
[2023-06-24] MEDS: CEROVITE ADV FORMULA TAB PO SCH (08:04)
[2023-06-24] MEDS: FUROSEMIDE 40 MG/4 ML VIAL IV SCH ×2 (08:04→16:20)
[2023-06-24] MEDS: TAMSULOSIN HCL 0.4 MG CAP PO SCH (08:04)
[2023-06-24] MEDS: ASPIRIN 81 MG ECTAB PO SCH (08:04)
[2023-06-24] MEDS: allopurinoL 300 MG TAB PO SCH (08:04)
--- NOTE | 2023-06-24 10:11 | Electrocardiogram Report ---
Test Reason : Blood Pressure : / mmHG Vent. Rate : 090 BPM Atrial Rate : 098 BPM P-R Int : 000 ms QRS Dur : 186 ms QT Int : 490 ms P-R-T Axes : 000 161 105 degrees QTc Int : 599 ms Ventricular-paced rhythm Abnormal ECG When compared with ECG of 22-JUN-2023 18:21, Vent. rate has increased BY 2 BPM Confirmed by Reji Head ([id number]) on 06/24/2023 10:11:07 AM Referred By: REFERRED SELF Confirmed By:Bi Head
--- NOTE | 2023-06-24 12:01 | Electrocardiogram Report ---
Test Reason : Blood Pressure : / mmHG Vent. Rate : 096 BPM Atrial Rate : 096 BPM P-R Int : 000 ms QRS Dur : 172 ms QT Int : 464 ms P-R-T Axes : 000 154 115 degrees QTc Int : 586 ms Ventricular-paced rhythm Biventricular pacemaker detected Abnormal ECG When compared with ECG of 23-JUN-2023 06:07, (unconfirmed) Vent. rate has increased BY 6 BPM Confirmed by Reji Head ([id number]) on 06/24/2023 12:00:55 PM Referred By: REFERRED SELF Confirmed By:Bi Head
--- NOTE | 2023-06-24 12:53 | Cardiology Progress Note ---
Date of Service June 24, 2023 Assessment & Plan (1) Acute exacerbation of CHF (congestive heart failure): (2) Nonischemic dilated cardiomyopathy: (3) PAF (paroxysmal atrial fibrillation): (4) CKD (chronic kidney disease), stage IV: (5) Biventricular cardiac pacemaker in situ: (6) Elevated troponin: (7) Ventricular tachycardia, paroxysmal: Plan: On chronic amiodarone therapy Plan Longstanding history of nonischemic cardiomyopathy, NYHA Class III-IV, currently with acute decompensation, HFrEF Recurrent atrial flutter/fibrillation History of ventricular tachycardia prescribed chronic amiodarone therapy. history of apical thrombus (not present on echocardiography this admission) Patient presents this admission after presyncopal episode, slumping to the floor and being unable to move following increasing development of cough with copious mucus production, orthopnea with intermittent PND, weight gain and worsening fluid retention. Events appear to be multifactorial in etiology with acute d ecompensated heart failure precipitated by recurrent atrial flutter with rapid ventricular response as well as acute respiratory illness. Echo this admission reflects decline in LV function with worsening mitral insufficiency. Continue IV diuresis with furosemide Follow renal dysfunction with at least daily metabolic panels Maintain normokalemia and normomagnesemia. Continue IV heparin until INR therapeutic Add Mucinex and Xopenex Continue metoprolol succinate and amiodarone Prognosis appears to be poor. Admission and Anticipated Discharge Date Admission Date: June 23, 2023 Supervising Physician Co-Signing Physician Notes 77-year-old patient admitted with progressive shortness of breath cough, and sputum production. Mild clinical improvement since admission. Fluid balance - 530 cc. Renal function remained stable. Atrial flutter with heart rate ranging 70-90s on telemetry. PE: Chronically ill. Awake alert and oriented x 3. Heart: Irregular rhythm, normal S1-S2. 2/6 holosystolic murmur at the apex. Lungs: Diminished breath sounds at the bases. Scattered rhonchi and expiratory wheezing. Extremities: Trace bilateral pedal edema. A/P: Agree with above PA-C history, physical exam, assessment and plan. 77-year-old presenting with acute decompensated heart failure with interval decline of LV systolic function and progression of mitral regurgitation. Telemetry revealing probable atrial flutter although heart rates controlled. Continue IV diuresis.monitor daily weight, fluid balance, GFR, and electrolytes. Continue IV heparin until INR therapeutic. Xopenex and Mucinex added for symptomatic relief. Continue metoprolol succinate and amiodarone. ICD interrogation pending regarding onset of atrial fibrillation/flutter. Further considerations include outpatient referral to consider mitral valve clip postdi scharge due to worsening mitral regurgitation. Subjective Patient seen and examined. Chart, medications, and telemetry reviewed. Feels weak and washed out. Ongoing shortness of breath and cough with difficulty expectorating sputum. Ongoing orthopnea. Lower extremity peripheral edema has improved. Cumulative I's/O's are recorded as being +240 mL overall this admission Telemetry: Ventricular paced rhythm, ? underlying 2-1 atrial flutter EKG reveals a ventricular paced rhythm with suspected underlying atrial flutter June 23, 2023 TTE: Moderately dilated LV. Mild concentric LVH. Apical wall motion abnormality may reflect pacemaker activation. Severe global hypokinesis of LV. EF 15 to 20%. Severely dilated left atrium. Dilated mitral valve annulus with mildly thickened mitral valve leaflets, severe mitral regurgitation. Moderate to severe tricuspid regurgitation. RVSP 40 to 50 mmHg. In comparison to the December 05, 2022 study, LV systolic function has declined, mitral insufficiency is worse. Review of Systems Review of Systems: Complete review of systems is otherwise as stated above, negative, or noncontributory Physical Exam Physical Exam: General: A&Ox3. HENT: Normocephalic. Atraumatic. Eyes: PER. Conjunctiva pink, sclera clear. Neck: + JVD Heart: Regular, paced 70 bpm. Systolic murmur. No rub. Lungs: Scattered rhonchi and wheezing. Abdomen: +BS. Soft. Nontender. No masses or organomegaly. Extremities: 1+ pretibial edema. No clubbing. No cyanosis. Limited neurological examination is without focal deficits. Pulses: radial=2/4, posterior tibial=1/4. Results & Data Vital Signs (Past 12 Hours) Vital Signs Temp Pulse Pulse Resp BP Pulse Ox O2 Del Method 06/24/23 11:05 36.5 C 94 H 20 102/59 L 94 Nasal Cannula 06/24/23 08:01 36.4 C L 62 22 112/79 92 Nasal Cannula 06/24/23 07:50 83 06/24/23 03:40 36.7 C 94 H 18 111/81 96 Nasal Cannula 06/24/23 01:16 80 24 117/76 96 Nasal Cannula 06/24/23 00:52 77 18 97 Nasal Cannula O2 Flow Rate 06/24/23 11:05 4 06/24/23 08:01 4 06/24/23 07:50 06/24/23 03:40 4 06/24/23 01:16 4 06/24/23 00:52 4 Laboratory Results Cardiac Enzymes 06/23/23 Range/Units 16:18 Troponin I High Sens 61.6 H* (0-20) pg/ml Coagulation 06/24/23 Range/Units 06:20 PT 19.2 H (9.0-12.0) Seconds CBC 06/24/23 Range/Units 06:20 WBC 7.20 (4.8-10.8) K/ul RBC 3.76 L (4.70-6.10) M/uL Hgb 11.4 L (14.0-18.0) g/dl Hct 36.0 L (42.0-52.0) % Plt Count 141 (130-400) K/uL Neut # (Auto) 5.59 (1.40-6.50) K/uL Lymph # (Auto) 1.05 L (1.20-3.40) K/uL [place] # (Auto) 0.52 (0.11-0.59) K/uL Eos # (Auto) 0.01 (0.00-0.50) K/uL Baso # (Auto) 0.01 (0.00-0.20) K/uL Comprehensive Metabolic Panel 06/24/23 Range/Units 06:20 Sodium 137 (136-145) mmol/L Potassium 4.0 D (3.5-5.1) mmol/L Chloride 104 (98-107) mmol/L Carbon Dioxide 26 (21-32) mmol/L BUN 48 H (6-23) mg/dl Creatinine 2.36 H (0.6-1.4) mg/dl Glucose 128 H (70-99(Fasting)) mg/dl Calcium 7.9 L (8.6-10.3) mg/dl Intake and Output 06/23/23 06/24/23 06/24/23 22:59 06:59 14:59 Intake Total 372 / 740.0 213.0 / 740.0 90.067 / 90.067 Output Total 750 / 950 Balance 372 / -210.0 -537.0 / -210.0 90. / . Intake: IV 132 / 500.0 213.0 / 500.0 90. / .06 Heparin Sodium/Dextrose 25,000 132 / 500.0 213.0 / 500.0 90. / .067 units In 500 ml @ 1,400 UNITS/ HR 28 mls/hr IV .[id number] [facility] Rx #:[id number] Oral 240 / 240 Output: Urine 750 / 950 Other: # Unmeasured Voids 1 Weight 105 kg Weight Measurement Method Built in [facility] (1) Acute exacerbation of CHF (congestive heart failure) Heart failure type: systolic Qualified Code(s): I50.23 - Acute on chronic systolic (congestive) heart failure
--- NOTE | 2023-06-24 13:20 | Hospitalist Progress Note ---
Date of Service June 24, 2023 Assessment & Plan (1) Syncope: Plan: 77-year-old male with past medical history significant for chronic systolic CHF with EF of 30% on echo November 2022, moderate size apical thrombus, atypical atrial flutter, paroxysmal atrial fibrillation, dilated nonischemic cardiomyopathy, s/p biventricular pacemaker defibrillator implantation, history of ventricular tachycardia on amiodarone, history of GI bleed, CKD stage IV, history of MUGS and iron deficiency anemia, hypertension, hyperlipidemia, gout, history of prostate cancer s/p radiation treatment, prediabetes, who lives alone at home and ambulates with a cane comes because of syncopal episode. Syncope Likely secondary to cardiogenic cause Acute exacerbation of chronic systolic CHF Complicated by atrial flutter and paroxysmal defibrillation S/p biventricular pacemaker defibrillator implantation Will do pacemaker interrogation-awaited Monitor on telemetry-remains in paced rhythm Repeat echocardiogram showed-LV is moderately dilated, mild concentric LVH, apical wall motion abnormality may reflect pacemaker activation, there is severe global hypokinesis of the left ventricle with EF 15 to 20%, left atrium is severely dilated, mitral valve annulus is dilated, there is severe mitral regurgitation, there is moderate to severe tricuspid regurgitation, RV systolic function is elevated to 40 to 50 mmHg. In comparison to prior study of 12/05/2022 LV systolic function has declined and mitral insufficiency is worse EF of 30% echo in November [address] on IV Lasix 40 twice daily Daily weights and I's and O's------ cumulative fluid balance remains positive 240mls-doubt accurate measurement Appreciate cardiology input and recommendation Clinically little better today-remains short of breath at rest and requiring 4 L to maintain saturation Acute decompensated systolic heart failure as above Lasix will be given intravenously 40 mg twice daily Monitor intake and output Will continue current dose of intravenous Lasix and to monitor intake output chart Will monitor electrolytes Elevation of troponin-troponin is chronically elevated due to underlying cardiac disease and renal insufficiency Initial troponin 57 and repeat is 63 Doubt any ACS History of apical thrombus INR subtherapeutic at 1.[address] on low-dose IV heparin Seems on Coumadin 2.5 mg daily as per anticoagulation notes Will place on 4 mg and monitor Repeat echo did not show any presence of apical thrombus Mild hyperkalemia Potassium 5.3 Will hold potassium supplements Will follow repeat labs-potassium has been normalized History of paroxysmal atrial fibrillation and a flutter On amiodarone and metoprolol succinate and Coumadin Will monitor History of ventricular tachycardia On amiodarone CKD stage IV Presented creatinine of 2.15 Seems around baseline-creatinine slightly elevated at 2.28 Creatinine is slightly worse at 2.36 Hypertension On metoprolol Will monitor Gout On allopurinol Hypothyroidism On Synthyroid Follow TSH History of prostate cancer S/p radiation PSA again getting elevated Plan to restart on Lupron on Casodex Follows with urology DVT prophylaxis IV heparin until INR therapeutic Disposition Telemetry floor CODE STATUS. DNR/DNI as per my discussion with the patient Admission and Anticipated Discharge Date Admission Date: June 23, 2023 Subjective 06/23/2023 The patient was seen and examined in telemetry unit He has been complaining of shortness of breath and has profuse wheezing Saturating normally on room air Denies any chest pain and/or palpitation 06/24/2023 The patient was seen and examined in telemetry unit She has had more shortness of breath last night and required additional dose of Lasix last night Has been feeling better today and sitting at the edge of the bed Requiring 4 L via nasal cannula to maintain saturation Denies any chest pain and/or palpitation Review of Systems Review of Systems: All systems reviewed and are unremarkable except as noted below Respiratory: Shortness of breath at rest Physical Exam Physical Exam: Lying in bed with moderate shortness of breath Constitutional: well developed, well nourished, + ill appearing and + obese Eyes: PERRL, conjunctivae normal, anicteric sclerae ENMT: external ear and nose normal, oropharynx normal Neck: trachea midline, no thyromegaly Respiratory: + respiratory distress (Moderate respira tory distress at rest) Auscultation: + diminished lung sounds and + wheezes (Moderate wheezing all ove r) Cardiovascular: Rate/Rhythm: regular rate and regular rhythm; not tachycardic Heart Sounds: normal S1, normal S2 and + murmur (2/6 ESM over precordium) Extremities: + edema (2+ edema bilaterally ) Gastrointestinal (Abdomen): Inspection/Auscultation: normal bowel sounds; abdomen not distended Percussion/Palpation: abdomen soft; abdomen nontender Musculoskeletal: No acute arthritis involving any of the joint Neurologic: normal touch/pain/proprioception and moves all extremities; no focal motor deficits Lymphatic: no cervical or axillary lymphadenopathy Results & Data Results & Data Vital Signs (Past 12 Hours) Vital Signs Temp Pulse Pulse Resp BP Pulse Ox O2 Del Method 06/24/23 11:05 36.5 C 94 H 20 102/59 L 94 Nasal Cannula 06/24/23 08:01 36.4 C L 62 22 112/79 92 Nasal Cannula 06/24/23 07:50 83 06/24/23 03:40 36.7 C 94 H 18 111/81 96 Nasal Cannula 06/24/23 01:16 80 24 117/76 96 Nasal Cannula O2 Flow Rate 06/24/23 11:05 4 06/24/23 08:01 4 06/24/23 07:50 06/24/23 03:40 4 06/24/23 01:16 4 Laboratory Results Short CBC 06/24/23 Range/Units 06:20 WBC 7.20 (4.8-10.8) K/ul Hgb 11.4 L (14.0-18.0) g/dl Hct 36.0 L (42.0-52.0) % Plt Count 141 (130-400) K/uL BMP 06/24/23 06:20 Sodium 137 Potassium 4.0 D Chloride 104 Carbon Dioxide 26 BUN 48 H Creatinine 2.36 H Glucose 128 H Calcium 7.9 L Medications Administered Current Inpatient Medications Acetaminophen (Acetaminophen 325 Mg Tab) 650 mg PO Q4H PRN PRN Reason: Pain or Fever Stop: 07/23/23 01:56 Last Admin: 06/24/23 08:03 Dose: 650 mg Allopurinol (Allopurinol 300 Mg Tab) 300 mg PO QAM [facility] Stop: 07/23/23 08:59 Last Admin: 06/24/23 08:04 Dose: 300 mg Amiodarone HCl (Amiodarone 200 Mg Tab) 200 mg PO BID [facility] Stop: 07/23/23 08:59 Last Admin: 06/24/23 08:04 Dose: 200 mg Aspirin (Aspirin 81 Mg Ectab) 81 mg PO DAILY [facility] Stop: 07/23/23 08:59 Last Admin: 06/24/23 08:04 Dose: 81 mg Furosemide (Furosemide 40 Mg/4 Ml Vial) 40 mg IV [id number] [facility] Stop: 07/23/23 08:59 Last Admin: 06/24/23 08:04 Dose: 40 mg Guaifenesin (Guaifenesin 600 Mg Tabcr) 600 mg PO Q12 [facility] Stop: 07/23/23 04:59 Last Admin: 06/24/23 08:04 Dose: 600 mg Heparin Sodium/Dextrose (Heparin Sodium/Dextrose) 25,000 units in 500 mls @ 28 mls/hr IV .[id number] [facility]; Protocol Stop: 07/23/23 01:56 Last Titration: 06/24/23 07:11 Dose: 1,400 units/hr, 28 mls/hr Levalbuterol HCl (Levalbuterol Hcl 0.63 Mg/3 Ml Neb) 0.63 mg NEB Q6R [facility]; Protocol Stop: 07/24/23 12:59 Levothyroxine Sodium (Levothyroxine Sodium 50 Mcg Tablet) 50 mcg PO DAILYBB [facility] Stop: 07/23/23 06:29 Last Admin: 06/24/23 05:37 Dose: 50 mcg Metoprolol Succinate (Metoprolol Succ 50mg Ext Rel Tab) 50 mg PO BID [facility] Stop: 07/23/23 08:59 Last Admin: 06/24/23 08:04 Dose: 50 mg Multivitamins/Minerals (Cerovite Adv Formula Tab) 1 tab PO DAILY [facility] Stop: 07/23/23 08:59 Last Admin: 06/24/23 08:04 Dose: 1 tab Nitroglycerin (Nitroglycerin Sl 0.4 Mg/Tab Tab) 0.4 mg SL Q5M PRN PRN Reason: Chest Pain Stop: 07/23/23 01:56 Tamsulosin HCl (Tamsulosin Hcl 0.4 Mg Cap) 0.4 mg PO QAM [facility] Stop: 07/23/23 08:59 Last Admin: 06/24/23 08:04 Dose: 0.4 mg Warfarin Sodium (Warfarin Sod 4 Mg Tab) 4 mg PO DAILY@1600 [facility] Stop: 07/23/23 15:59 Last Admin: 06/23/23 16:37 Dose: 4 mg
[2023-06-24] MEDS: LEVALBUTEROL HCL 0.63 MG/3 ML NEB NEB SCH ×2 (13:50→19:16)
[2023-06-24] MEDS: WARFARIN SOD 4 MG TAB PO SCH (16:20)
[2023-06-25] MEDS: LEVALBUTEROL HCL 0.63 MG/3 ML NEB NEB SCH ×4 (01:39→18:55)
[2023-06-25] MEDS: ACETAMINOPHEN 325 MG TAB PO PRN ×3 (01:57→20:13)
[2023-06-25] MEDS: LEVOTHYROXINE SODIUM 50 MCG TABLET PO SCH (05:54)
[2023-06-25] MEDS: allopurinoL 300 MG TAB PO SCH (08:18)
[2023-06-25] MEDS: FUROSEMIDE 40 MG/4 ML VIAL IV SCH ×2 (08:18→16:37)
[2023-06-25] MEDS: METOPROLOL SUCC 50MG EXT REL TAB PO SCH ×2 (08:19→20:10)
[2023-06-25] MEDS: TAMSULOSIN HCL 0.4 MG CAP PO SCH (08:19)
[2023-06-25] MEDS: ASPIRIN 81 MG ECTAB PO SCH (08:19)
[2023-06-25] MEDS: CEROVITE ADV FORMULA TAB PO SCH (08:19)
[2023-06-25] MEDS: AMIODARONE 200 MG TAB PO SCH ×2 (08:19→20:10)
[2023-06-25] MEDS: guaiFENesin 600 MG TABCR PO SCH ×2 (08:19→20:10)
[2023-06-25 09:07] LABS: BUN Creatinine Ratio 21.5 (10-20); Calcium 7.9 mg/dl (8.6-10.3); Creatinine Clr Calc Pharmacy 34.2 ml/min; Est GFR (African American) 31.5 ml/min; Est GFR (Non-African American) 27.2 ml/min; Phosphorus 3.5 mg/dl (2.5-4.9); Potassium 3.3 mmol/L (3.5-5.1)
[2023-06-25 09:17] LABS: ANTI-Xa, UFH(UnfractionatedHep 0.46 IU/ml (0.3-0.7); INR 2.4 (0.9-1.1); Prothrombin Time 24.5 Seconds (9.0-12.0)
--- NOTE | 2023-06-25 11:09 | Cardiology Progress Note ---
Date of Service June 25, 2023 Assessment & Plan (1) Acute exacerbation of CHF (congestive heart failure): (2) Nonischemic dilated cardiomyopathy: (3) PAF (paroxysmal atrial fibrillation): (4) CKD (chronic kidney disease), stage IV: (5) Biventricular cardiac pacemaker in situ: (6) Elevated troponin: (7) Ventricular tachycardia, paroxysmal: Plan: On chronic amiodarone therapy Plan Complex 77-year-old male with longstanding history of nonischemic cardiomyopathy, NYHA Class III-IV, currently with acute decompensation, HFrEF, likely precipitated by recurrent atrial flutter/fibrillation and occurring in the setting of a URI. Patient also with a history of ventricular tachycardia for which he is prescribed chronic amiodarone therapy and apical thrombus for which he is prescribed anticoagulation with Coumadin. Apical thrombus not noted on echocardiography this admission though echo did reveal worsening LV function as well as severe mitral insufficiency. CHF improving with IV diuretics. URI i mproving with general measures including Mucinex and Xopenex nebulizer treatments. Heart rates controlled. Respiratory infectious symptoms also appear to be improving. Continue IV diuresis with furosemide Supplement potassium orally Follow renal dysfunction with at least daily metabolic panels Discontinue IV heparin now that INR is therapeutic. Continue metoprolol and amiodarone. Resting echocardiography as an outpatient, following achievement normovolemia, RE: reassessment of mitral regurgitation prior to considering referral for mitral valve clip Consider imaging of the left hip post fall Admission and Anticipated Discharge Date Admission Date: June 23, 2023 Supervising Physician Co-Signing Physician Notes Supervising Physician Attestation: I have personally performed a history and physical examination on the patient. I agree with the physician trust operations assistant's findings and plan as documented with the following additions. Subjective: Patient subjectively improving, ambulating with the assistance of walker at the time my assessment. Telemetry reveals ventricular paced rhythm in the 70s. Exam: Pulmonary: Clear to auscultation bilaterally Cardiovascular: Regular, 2/6 systolic murmur Data: INR=2.4 Assessment and Plan: Acute heart failure with reduced ejection fraction -Continue IV furosemide 40 mg IV twice daily -Heparin discontinued as INR is therapeutic at 2.4. Continue Coumadin. I spent a total of 20 minutes on the date of service in preparation, delivery, and documentation of the care provided to this patient, excluding any time spent in the performance of separately billed services. Lonnie Miner, Subjective Patient seen and examined. Chart, medications, and telemetry reviewed. Sister at bedside. Feels better today as compared to yesterday. Improved strength. Dyspnea and cough have improved. No chest pain. No palpitations. Telemetry: Ventricular paced rhythm in the 70s June 23, 2023 TTE: Moderately dilated LV. Mild concentric LVH. Apical wall motion abnormality may reflect pacemaker activation. Severe global hypokinesis of LV. EF 15 to 20%. Severely dilated left atrium. Dilated mitral valve annulus with mildly thickened mitral valve leaflets, severe mitral regurgitation. Moderate to severe tricuspid regurgitation. RVSP 40 to 50 mmHg. In comparison to the December 05, 2022 study, LV systolic function has declined, mitral insufficiency is worse. Review of Systems Review of Systems: Complete review of systems is otherwise as stated above, negative, or noncontributory Physical Exam Physical Exam: General: A&Ox3. HENT: Normocephalic. Atraumatic. Eyes: PER. Conjunctiva pink, sclera clear. Neck: + JVD Heart: Regular, paced 70 bpm. Systolic murmur. No rub. Lungs: Much less rhonchi. No wheeze. Abdomen: +BS. Soft. Nontender. No masses or organomegaly. Extremities: Trace to 1+ pretibial edema. No clubbing. No cyanosis. Limited neurological examination is without focal deficits. Pulses: radial=2/4, posterior tibial=1/4. Results & Data Vital Signs (Past 12 Hours) Vital Signs Temp Pulse Pulse Resp BP Pulse Ox O2 Del Method 06/25/23 07:48 36.4 C L 74 20 114/71 97 Nasal Cannula 06/25/23 07:43 79 06/25/23 07:43 Nasal Cannula 06/25/23 07:00 71 18 95 Nasal Cannula 06/25/23 03:25 36.5 C 71 18 106/68 95 Nasal Cannula 06/25/23 01:39 72 18 95 Nasal Cannula O2 Flow Rate 06/25/23 07:48 2.5 06/25/23 07:43 06/25/23 07:43 3 06/25/23 07:00 3 06/25/23 03:25 2 06/25/23 01:39 2 Laboratory Results Coagulation 06/25/23 Range/Units 08:29 PT 24.5 H (9.0-12.0) Seconds Comprehensive Metabolic Panel 06/25/23 Range/Units 08:29 Sodium 137 (136-145) mmol/L Potassium 3.3 L (3.5-5.1) mmol/L Chloride 103 (98-107) mmol/L Carbon Dioxide 25 (21-32) mmol/L BUN 48 H (6-23) mg/dl Creatinine 2.23 H (0.6-1.4) mg/dl Glucose 152 H (70-99(Fasting)) mg/dl Calcium 7.9 L (8.6-10.3) mg/dl Intake and Output 06/24/23 06/25/23 06/25/23 22:59 06:59 14:59 Intake Total 709.933 / 1280.000 Output Total 1200 / 1450 Balance -490.067 / -170.000 - Intake: IV 409.933 / 500.000 Heparin Sodium/Dextrose 25,000 409.933 / 500.000 units In 500 ml @ 1,400 UNITS/ HR 28 mls/hr IV .[id number] [facility] Rx #:[id number] Oral 300 / 780 Output: Urine 1200 / 1450 # Bowel Movements Other: Weight 105 kg Weight Measurement Method Built in [facility] (1) Acute exacerbation of CHF (congestive heart failure) Heart failure type: systolic Qualified Code(s): I50.23 - Acute on chronic systolic (congestive) heart failure
[2023-06-25] MEDS: POTASSIUM CHLORIDE CRTAB 20 MEQ TABCR PO SCH ×2 (12:23→20:09)
--- NOTE | 2023-06-25 14:16 | Hospitalist Progress Note ---
Date of Service June 25, 2023 Assessment & Plan (1) Syncope: Plan: per previous hospitalist notes with addendum: 77-year-old male with past medical history significant for chronic systolic CHF with EF of 30% on echo November 2022, moderate size apical thrombus, atypical atrial flutter, paroxysmal atrial fibrillation, dilated nonischemic cardiomyopathy, s/p biventricular pacemaker defibrillator implantation, history of ventricular tachycardia on amiodarone, history of GI bleed, CKD stage IV, history of MUGS and iron deficiency anemia, hypertension, hyperlipidemia, gout, history of prostate cancer s/p radiation treatment, prediabetes, who lives alone at home and ambulates with a cane comes because of syncopal episode. Syncope Likely secondary to cardiogenic cause Acute exacerbation of chronic systolic CHF Complicated by atrial flutter and paroxysmal defibrillation S/p biventricular pacemaker defibrillator implantation Will do pacemaker interrogation-awaited Monitor on telemetry-remains in paced rhythm Repeat echocardiogram showed-LV is moderately dilated, mild concentric LVH, apical wall motion abnormality may reflect pacemaker activation, there is severe global hypokinesis of the left ventricle with EF 15 to 20%, left atrium is severely dilated, mitral valve annulus is dilated, there is severe mitral regurgitation, there is moderate to severe tricuspid regurgitation, RV systolic function is elevated to 40 to 50 mmHg. In comparison to prior study of 12/05/2022 LV systolic function has declined and mitral insufficiency is worse EF of 30% echo in November 202206/25 still on 3 L nasal cannula continue Lasix IV, Metoprolol and Amiodarone on Levalbuterol nebs Acute decompensated systolic heart failure as above per above Elevation of troponin-troponin is chronically elevated due to underlying cardiac disease and renal insufficiency Initial troponin 57 and repeat is 63 Doubt any ACS History of apical thrombus INR subtherapeutic at 1.[address] on low-dose IV heparin Seems on Coumadin 2.5 mg daily as per anticoagulation notes Will place on 4 mg and monitor Repeat echo did not show any presence of apical thrombus 06/25 INR 2.4 on coumadin Mild hyperkalemia K 3.3 on K supplement History of paroxysmal atrial fibrillation and a flutter On amiodarone and metoprolol succinate and Coumadin Will monitor History of ventricular tachycardia On amiodarone CKD stage IV Presented creatinine of 2.15 Seems around baseline-creatinine slightly elevated at 2.28 Creatinine is slightly worse at 2.2 Hypertension On metoprolol Will monitor Gout On allopurinol Hypothyroidism On Synthyroid Follow TSH History of prostate cancer S/p radiation PSA again getting elevated Plan to restart on Lupron on Casodex Follows with urology DVT prophylaxis on coumadin Disposition Telemetry floor CODE STATUS. DNR/DNI as per my discussion with the patient Admission and Anticipated Discharge Date Admission Date: June 23, 2023 Subjective ff up for acute chf exacerbation, etc seen resting in bed, comfortable on 3 L NC states breathing is gradually improving no chest pain, palpitations, dizziness no cough, sputum production, fever, chills, etc no other symptom Review of Systems Review of Systems: all noted and negative except for above Physical Exam Physical Exam: General- oriented x 3, not in distress, speaks in sentences with no effort or accessory muscle use Eyes- anicteric Neck- no JVD Lungs- faint wheeze BL Heart- normal rate, regular rhythm; no murmurs Abdomen- normal bowel sounds, nondistended, soft, nontender Extremities- gr 1 lower leg edema, no calf tenderness Neuro- alert, oriented x 3; no gross focal neurologic deficits Skin- warm & dry Results & Data Results & Data Vital Signs (Past 12 Hours) Vital Signs Temp Pulse Pulse Resp BP Pulse Ox O2 Del Method 06/25/23 13:14 82 18 95 Nasal Cannula 06/25/23 11:29 36.3 C L 74 18 104/65 96 Nasal Cannula 06/25/23 07:48 36.4 C L 74 20 114/71 97 Nasal Cannula 06/25/23 07:43 79 06/25/23 07:43 Nasal Cannula 06/25/23 07:00 71 18 95 Nasal Cannula 06/25/23 03:25 36.5 C 71 18 106/68 95 Nasal Cannula O2 Flow Rate 06/25/23 13:14 3 06/25/23 11:29 2.5 06/25/23 07:48 2.5 06/25/23 07:43 06/25/23 07:43 3 06/25/23 07:00 3 06/25/23 03:25 2 all noted and reviewed including below
[2023-06-25] MEDS: WARFARIN SOD 4 MG TAB PO SCH (16:38)
[2023-06-26] MEDS: LEVALBUTEROL HCL 0.63 MG/3 ML NEB NEB SCH ×4 (00:24→20:00)
[2023-06-26] MEDS: LEVOTHYROXINE SODIUM 50 MCG TABLET PO SCH (06:11)
[2023-06-26 07:35] LABS: INR 2.5 (0.9-1.1); Prothrombin Time 26.2 Seconds (9.0-12.0)
[2023-06-26] MEDS: AMIODARONE 200 MG TAB PO SCH ×2 (10:01→19:51)
[2023-06-26] MEDS: POTASSIUM CHLORIDE CRTAB 20 MEQ TABCR PO SCH ×2 (10:01→19:50)
[2023-06-26] MEDS: guaiFENesin 600 MG TABCR PO SCH ×2 (10:02→19:50)
[2023-06-26] MEDS: allopurinoL 300 MG TAB PO SCH (10:02)
[2023-06-26] MEDS: ASPIRIN 81 MG ECTAB PO SCH (10:02)
[2023-06-26] MEDS: CEROVITE ADV FORMULA TAB PO SCH (10:03)
[2023-06-26] MEDS: TAMSULOSIN HCL 0.4 MG CAP PO SCH (10:04)
[2023-06-26] MEDS: FUROSEMIDE 40 MG/4 ML VIAL IV SCH (10:15)
[2023-06-26] MEDS: METOPROLOL SUCC 50MG EXT REL TAB PO SCH ×2 (10:16→19:50)
--- NOTE | 2023-06-26 10:34 | XRay Report ---
XR chest 1V portable HISTORY: 77 years-old Male ff up chf acute shortness of breath COMPARISON: 06/24/2023 TECHNIQUE: AP view of the chest FINDINGS: Cardiac silhouette is enlarged. Pulmonary vascular congestion. Left subclavian pacer/ICD. Small pleur al effusions with mild persistent bibasilar opacities, mildly progressed. Bones appear grossly intact . IMPRESSION: 1. Cardiomegaly with pulmonary vascular congestion. 2. Small pleural effusions with mildly progressed bibasilar opacities. ACT 112: Negative or not required by law. The above report was generated using voice recognition software. It may contain grammatical, syntax o r spelling errors. Electronically signed by: Filiberto Metcalf M.D. 06/26/2023 10:33 AM
--- NOTE | 2023-06-26 12:13 | Cardiology Progress Note ---
Date of Service June 26, 2023 Assessment & Plan (1) Acute exacerbation of CHF (congestive heart failure): (2) Nonischemic dilated cardiomyopathy: (3) PAF (paroxysmal atrial fibrillation): (4) CKD (chronic kidney disease), stage IV: (5) Biventricular cardiac pacemaker in situ: (6) Elevated troponin: (7) Ventricular tachycardia, paroxysmal: Plan: On chronic amiodarone therapy Plan Complex 77-year-old male with longstanding history of nonischemic cardiomyopathy, NYHA Class III-IV, currently with acute decompensation, HFrEF, likely precipitated by recurrent atrial flutter/fibrillation and occurring in the setting of a URI. Patient also with a history of ventricular tachycardia for which he is prescribed chronic amiodarone therapy and apical thrombus for which he is prescribed anticoagulation with Coumadin. Apical thrombus not noted on echocardiography this admission though echo did reveal worsening LV function as well as severe mitral insufficiency. Heart rates controlled. Respiratory in fectious symptoms continue to improve. Obtain AM labs. BMP and magnesium ordered. Discontinue IV furosemide, transitioning back to oral furosemide at 80 mg BID Continue supplemental potassium chloride. Continue Warfarin, INR goal 2.0 to 3.0 Continue metoprolol and amiodarone. Outpatient follow-up resting echocardiography, RE: reassess MR, consideration for mitral valve clip Increase activity as tolerated. Admission and Anticipated Discharge Date Admission Date: June 23, 2023 Supervising Physician Co-Signing Physician Notes Supervising Physician Attestation: I have personally performed a history and physical examination on the patient. I agree with the physician industrial hire sales assistant's findings and plan as documented with the following additions. Subjective: Patient subjectively improving. Less short of breath today. Edema improved. Exam: Pulmonary: Clear to auscultation bilaterally Cardiovascular: Regular, 2/6 systolic murmur Trace pedal edema. Data: INR=2.5 Assessment and Plan: Acute heart failure with reduced ejection fraction Continue IV furosemide 40 mg IV twice daily. Monitor fluid balance, daily weight, GFR, and electrolytes. INR therapeutic, continue Coumadin. Subjective Patient seen and examined. Chart, medications, and telemetry reviewed. Sister at bedside. IV furosemide held this AM due to hypotension No AM labs available for review. Feeling better. No chest pain. No palpitations. Left hip pain is much improved. Telemetry: Ventricular paced rhythm in the 70s June 23, 2023 TTE: Moderately dilated LV. Mild concentric LVH. Apical wall motion abnormality may reflect pacemaker activation. Severe global hypokinesis of LV. EF 15 to 20%. Severely dilated left atrium. Dilated mitral valve annulus with mildly thickened mitral valve leaflets, severe mitral regurgitation. Moderate to severe tricuspid regurgitation. RVSP 40 to 50 mmHg. In comparison to the December 05, 2022 study, LV systolic function has declined, mitral insufficiency is worse. Review of Systems Review of Systems: Complete review of systems is otherwise as stated above, negative, or noncontributory Physical Exam Physical Exam: General: A&Ox3. HENT: Normocephalic. Atraumatic. Eyes: PER. Conjunctiva pink, sclera clear. Neck: + JVD Heart: Regular, paced 70 bpm. Systolic murmur. No rub. Lungs: Much less rhonchi. No wheeze. Abdomen: +BS. Soft. Nontender. No masses or organomegaly. Extremities: Trace to 1+ pretibial edema. No clubbing. No cyanosis. Limited neurological examination is without focal deficits. Pulses: radial=2/4, posterior tibial=1/4. Results & Data Vital Signs (Past 12 Hours) Vital Signs Temp Pulse Pulse Pulse Resp BP Pulse Ox 06/26/23 11:21 36.6 C 73 18 116/73 97 06/26/23 10:00 72 104/71 06/26/23 08:00 86 06/26/23 07:32 36.4 C L 76 18 92/53 L 97 06/26/23 07:03 91 H 18 96 06/26/23 04:25 36.4 C L 88 18 114/73 97 06/26/23 00:24 99 H 18 99 O2 Del Method O2 Flow Rate 06/26/23 11:21 Nasal Cannula 2 06/26/23 10:00 06/26/23 08:00 06/26/23 07:32 Nasal Cannula 2 06/26/23 07:03 Nasal Cannula 2 06/26/23 04:25 Room Air 06/26/23 00:24 Nasal Cannula 2 Laboratory Results Coagulation 06/26/23 Range/Units 06:24 PT 26.2 H (9.0-12.0) Seconds Intake and Output 06/25/23 06/26/23 06/26/23 22:59 06:59 14:59 Intake Total 240 / 613 Output Total 1 627 400 / 627 Balance -1 / -14 -160 / -14 Intake: Oral 240 / 240 Output: Urine 400 / 625 # Bowel Movements 1 / 2 Other: # Unmeasured Voids 1 2 Weight 103.646 kg Weight Measurement Method Built in [facility] (1) Acute exacerbation of CHF (congestive heart failure) Heart failure type: systolic Qualified Code(s): I50.23 - Acute on chronic systolic (congestive) heart failure
[2023-06-26 12:57] LABS: BUN Creatinine Ratio 21.9 (10-20); Calcium 8.2 mg/dl (8.6-10.3); Creatinine Clr Calc Pharmacy 33.8 ml/min; Est GFR (African American) 31.4 ml/min; Est GFR (Non-African American) 27.1 ml/min; Magnesium 2.2 mg/dl (1.7-2.4); Potassium 3.8 mmol/L (3.5-5.1)
[2023-06-26] MEDS: FUROSEMIDE 80 MG TAB PO SCH (17:15)
[2023-06-26] MEDS: WARFARIN SOD 4 MG TAB PO SCH (17:16)
--- NOTE | 2023-06-26 18:03 | Hospitalist Progress Note ---
Date of Service June 26, 2023 Assessment & Plan (1) Syncope: Plan: per previous hospitalist notes with addendum: 77-year-old male with past medical history significant for chronic systolic CHF with EF of 30% on echo November 2022, moderate size apical thrombus, atypical atrial flutter, paroxysmal atrial fibrillation, dilated nonischemic cardiomyopathy, s/p biventricular pacemaker defibrillator implantation, history of ventricular tachycardia on amiodarone, history of GI bleed, CKD stage IV, history of MUGS and iron deficiency anemia, hypertension, hyperlipidemia, gout, history of prostate cancer s/p radiation treatment, prediabetes, who lives alone at home and ambulates with a cane comes because of syncopal episode. Syncope Likely secondary to cardiogenic cause Acute exacerbation of chronic systolic CHF Complicated by atrial flutter and paroxysmal defibrillation S/p biventricular pacemaker defibrillator implantation Will do pacemaker interrogation-awaited Monitor on telemetry-remains in paced rhythm Repeat echocardiogram showed-LV is moderately dilated, mild concentric LVH, apical wall motion abnormality may reflect pacemaker activation, there is severe global hypokinesis of the left ventricle with EF 15 to 20%, left atrium is severely dilated, mitral valve annulus is dilated, there is severe mitral regurgitation, there is moderate to severe tricuspid regurgitation, RV systolic function is elevated to 40 to 50 mmHg. In comparison to prior study of 12/05/2022 LV systolic function has declined and mitral insufficiency is worse EF of 30% echo in November 202206/25 still on 3 L nasal cannula continue Lasix IV, Metoprolol and Amiodarone on Levalbuterol nebs 06/26 Transition to oral Lasix today Continue other usual meds Acute decompensated systolic heart failure as above per above Elevation of troponin-troponin is chronically elevated due to underlying cardiac disease and renal insufficiency Initial troponin 57 and repeat is 63 Doubt any ACS History of apical thrombus INR subtherapeutic at 1.[address] on low-dose IV heparin Seems on Coumadin 2.5 mg daily as per anticoagulation notes Will place on 4 mg and monitor Repeat echo did not show any presence of apical thrombus 06/26 INR 2.5 on coumadin Mild hyperkalemia K 3.8 on K supplement History of paroxysmal atrial fibrillation and a flutter On amiodarone and metoprolol succinate and Coumadin Will monitor History of ventricular tachycardia On amiodarone CKD stage IV Presented creatinine of 2.15 Seems around baseline-creatinine slightly elevated at 2.28 Creatinine 2.2 Hypertension On metoprolol Will monitor Gout On allopurinol Hypothyroidism On Synthyroid TSH normal History of prostate cancer S/p radiation PSA again getting elevated Plan to restart on Lupron on Casodex Follows with urology DVT prophylaxis on coumadin Disposition Lives alone at home PT and OT evaluation CODE STATUS. DNR/DNI as per my discussion with the patient Admission and Anticipated Discharge Date Admission Date: June 23, 2023 Subjective Follow-up for acute CHF, etc. Seen resting in bed side chair, comfortable, not in distress States he feels improved compared to yesterday Denies chest pain, palpitations, dizziness No fevers or chills No other new symptoms Review of Systems Review of Systems: all noted and negative except for above Physical Exam Physical Exam: General- oriented x 3, not in distress, speaks in sentences with no effort or accessory muscle use Eyes- anicteric Neck- no JVD Lungs-faint rales at the bases, no wheezing Heart- normal rate, regular rhythm; no murmurs Abdomen- normal bowel sounds, nondistended, soft, no tenderness Extremities- mild pretibial edema, no calf tenderness Neuro- alert, oriented x 3; no gross focal neurologic deficits Skin- warm & dry Results & Data Results & Data Vital Signs (Past 12 Hours) Vital Signs Temp Pulse Pulse Resp BP Pulse Ox O2 Del Method 06/26/23 15:21 36.6 C 72 18 103/72 95 Room Air 06/26/23 15:00 74 06/26/23 13:20 73 18 96 Nasal Cannula 06/26/23 11:21 36.6 C 73 18 116/73 97 Nasal Cannula 06/26/23 10:00 72 104/71 06/26/23 08:00 86 06/26/23 07:45 Nasal Cannula 06/26/23 07:32 36.4 C L 76 18 92/53 L 97 Nasal Cannula 06/26/23 07:03 91 H 18 96 Nasal Cannula O2 Flow Rate 06/26/23 15:21 06/26/23 15:00 06/26/23 13:20 2 06/26/23 11:21 2 06/26/23 10:00 06/26/23 08:00 06/26/23 07:45 2 06/26/23 07:32 2 06/26/23 07:03 2 all noted and reviewed including below
[2023-06-27] MEDS: LEVALBUTEROL HCL 0.63 MG/3 ML NEB NEB SCH ×3 (01:55→13:18)
[2023-06-27] MEDS: LEVOTHYROXINE SODIUM 50 MCG TABLET PO SCH (05:45)
[2023-06-27 07:19] LABS: INR 2.5 (0.9-1.1); Prothrombin Time 25.5 Seconds (9.0-12.0)
[2023-06-27] MEDS: ASPIRIN 81 MG ECTAB PO SCH (08:04)
[2023-06-27] MEDS: AMIODARONE 200 MG TAB PO SCH (08:04)
[2023-06-27] MEDS: FUROSEMIDE 80 MG TAB PO SCH ×2 (08:04→15:59)
[2023-06-27] MEDS: guaiFENesin 600 MG TABCR PO SCH (08:04)
[2023-06-27] MEDS: allopurinoL 300 MG TAB PO SCH (08:04)
[2023-06-27] MEDS: TAMSULOSIN HCL 0.4 MG CAP PO SCH (08:04)
[2023-06-27] MEDS: CEROVITE ADV FORMULA TAB PO SCH (08:05)
[2023-06-27] MEDS: POTASSIUM CHLORIDE CRTAB 20 MEQ TABCR PO SCH (08:05)
[2023-06-27] MEDS: METOPROLOL SUCC 50MG EXT REL TAB PO SCH (08:05)
--- NOTE | 2023-06-27 12:18 | Cardiology Progress Note ---
Date of Service June 27, 2023 Assessment & Plan (1) Acute exacerbation of CHF (congestive heart failure): (2) Nonischemic dilated cardiomyopathy: (3) PAF (paroxysmal atrial fibrillation): (4) CKD (chronic kidney disease), stage IV: (5) Biventricular cardiac pacemaker in situ: (6) Elevated troponin: (7) Ventricular tachycardia, paroxysmal: Plan: On chronic amiodarone therapy Plan Complex 77-year-old male with longstanding history of nonischemic cardiomyopathy, NYHA Class III-IV, currently with acute decompensation, HFrEF, likely precipitated by recurrent atrial flutter/fibrillation and occurring in the setting of a URI. Patient also with a history of ventricular tachycardia for which he is prescribed chronic amiodarone therapy and apical thrombus for which he is prescribed anticoagulation with Coumadin. Apical thrombus not noted on echocardiography this admission though echo did reveal worsening LV function as well as severe mitral insufficiency. Heart rates controlled. Respiratory in fectious symptoms continue to improve. Medications as presently prescribed/listed Outpatient device interrogation; possible future cardioversion discussed, once properly anticoagulated Outpatient cardiology follow-up including resting echocardiography, RE: reassess MR, consideration for mitral valve clip Please contact with any questions or concerns. Admission and Anticipated Discharge Date Admission Date: June 23, 2023 Supervising Physician Co-Signing Physician Notes Supervising Physician Attestation: I have personally performed a history and physical examination on the patient. I agree with the physician after school program assistant's findings and plan as documented with the following additions. Subjective: Feeling better today. Ambulating in the lui with minimal dyspnea. Edema improved with significant weight loss since admission. Exam: Pulmonary: Clear to auscultation bilaterally Cardiovascular: Regular, 2/6 systolic murmur Trace pedal edema. Data: INR=2.5 Assessment and Plan: Acute heart failure with reduced ejection fraction Continue oral diuretic therapy. Outpatient device interrogation with consideration for cardioversion after 4 weeks of adequate anticoagulation. Consideration for mitral valve clip in future pending reassessment of LV function and mitral regurgitation in the outpatient setting. No further inpatient testing or intervention recommended at this time. Patient may be discharged from a cardiovascular perspective. Subjective Patient seen and examined. Chart, medications, and telemetry reviewed. Anxious for discharge. Breathing okay. No chest pain. No tachypalpitations. Telemetry: Ventricular paced in the 70s. Heart rates predominantly between 70 and 90 bpm. Weight is reported to be -9 kg overall. I's/O's have not been accurately recorded. Review of Systems Review of Systems: Complete review of systems is otherwise as stated above, negative, or noncontributory Physical Exam Physical Exam: General: A&Ox3. HENT: Normocephalic. Atraumatic. Eyes: PER. Conjunctiva pink, sclera clear. Neck: Minimal JVD Heart: Regular, paced 70 bpm. Systolic murmur. No rub. Lungs: Diminished at the bases. Faint expiratory wheeze bilaterally. Abdomen: +BS. Soft. Nontender. No masses or organomegaly. Extremities: Trace to 1+ pretibial edema. No clubbing. No cyanosis. Limited neurological examination is without focal deficits. Pulses: radial=2/4, posterior tibial=1/4. Results & Data Vital Signs (Past 12 Hours) Vital Signs Temp Pulse Pulse Pulse Pulse Resp Resp 06/27/23 10:49 36.3 C L 76 17 06/27/23 08:32 91 H 84 21 06/27/23 07:42 36.7 C 06/27/23 07:00 83 06/27/23 07:00 90 18 06/27/23 02:33 36.6 C 90 18 06/27/23 01:57 91 H 18 Resp BP Pulse Ox Pulse Ox Pulse Ox O2 Del Method 06/27/23 10:49 106/70 93 Room Air 06/27/23 08:32 15 92 94 06/27/23 07:42 06/27/23 07:00 06/27/23 07:00 95 Room Air 06/27/23 02:33 106/72 95 Room Air 06/27/23 01:57 94 Room Air Laboratory Results Coagulation 06/27/23 Range/Units 05:42 PT 25.5 H (9.0-12.0) Seconds Comprehensive Metabolic Panel 06/26/23 Range/Units 06:29 Sodium 141 (136-145) mmol/L Potassium 3.8 (3.5-5.1) mmol/L Chloride 107 (98-107) mmol/L Carbon Dioxide 26 (21-32) mmol/L BUN 49 H (6-23) mg/dl Creatinine 2.24 H (0.6-1.4) mg/dl Glucose 130 H (70-99(Fasting)) mg/dl Calcium 8.2 L (8.6-10.3) mg/dl Intake and Output 06/26/23 06/27/23 06/27/23 22:59 06:59 14:59 Intake Total 120 / 600 240 / 600 Balance 120 / 600 240 / 600 Intake: Oral 120 / 600 240 / 600 Other: # Unmeasured Voids 2 1 Weight 103.2 kg (1) Acute exacerbation of CHF (congestive heart failure) Heart failure type: systolic Qualified Code(s): I50.23 - Acute on chronic systolic (congestive) heart failure
[2023-06-27] MEDS: WARFARIN SOD 4 MG TAB PO SCH (15:59)
--- NOTE | 2023-06-27 16:52 | Hospitalist Progress Note ---
Date of Service June 27, 2023 delayed entry date of service noted above Assessment & Plan (1) Syncope: Plan: per previous hospitalist notes with addendum: 77-year-old male with past medical history significant for chronic systolic CHF with EF of 30% on echo November 2022, moderate size apical thrombus, atypical atrial flutter, paroxysmal atrial fibrillation, dilated nonischemic cardiomyopathy, s/p biventricular pacemaker defibrillator implantation, history of ventricular tachycardia on amiodarone, history of GI bleed, CKD stage IV, history of MUGS and iron deficiency anemia, hypertension, hyperlipidemia, gout, history of prostate cancer s/p radiation treatment, prediabetes, who lives alone at home and ambulates with a cane comes because of syncopal episode. Syncope Likely secondary to cardiogenic cause Acute exacerbation of chronic systolic CHF Complicated by atrial flutter and paroxysmal defibrillation S/p biventricular pacemaker defibrillator implantation Will do pacemaker interrogation-awaited Monitor on telemetry-remains in paced rhythm Repeat echocardiogram showed-LV is moderately dilated, mild concentric LVH, apical wall motion abnormality may reflect pacemaker activation, there is severe global hypokinesis of the left ventricle with EF 15 to 20%, left atrium is severely dilated, mitral valve annulus is dilated, there is severe mitral regurgitation, there is moderate to severe tricuspid regurgitation, RV systolic function is elevated to 40 to 50 mmHg. In comparison to prior study of 12/05/2022 LV systolic function has declined and mitral insufficiency is worse EF of 30% echo in November 2022 given IV Lasix, titrated 06/27 Clinically improved per Cardiology service: Continue oral diuretic therapy. Outpatient device interrogation with consideration for cardioversion after 4 weeks of adequate anticoagulation. Consideration for mitral valve clip in future pending reassessment of LV function and mitral regurgitation in the outpatient setting. No further inpatient testing or intervention recommended at this time. Patient may be discharged from a cardiovascular perspective. Acute decompensated systolic heart failure as above per above Elevation of troponin-troponin is chronically elevated due to underlying cardiac disease and renal insufficiency Initial troponin 57 and repeat is 63 Doubt any ACS History of apical thrombus on coumadin Mild hyperkalemia K 3.8 on K supplement History of paroxysmal atrial fibrillation and a flutter On amiodarone and metoprolol succinate and Coumadin Will monitor History of ventricular tachycardia On amiodarone CKD stage IV Presented creatinine of 2.15 Seems around baseline-creatinine slightly elevated at 2.28 Creatinine 2.2 Hypertension On metoprolol Will monitor Gout On allopurinol Hypothyroidism On Synthyroid TSH normal History of prostate cancer S/p radiation PSA again getting elevated Plan to restart on Lupron on Casodex Follows with urology DVT prophylaxis on coumadin Disposition Lives alone at home PT and OT evaluation CODE STATUS. DNR/DNI as per my discussion with the patient Admission and Anticipated Discharge Date Admission Date: June 23, 2023 Subjective ff up for CHF etc seen resting in bed, comfortable feels fine overall no chest pain, dyspnea, palpitations, dizziness no other symptoms Review of Systems Review of Systems: all noted and negative except for above Physical Exam Physical Exam: General- oriented x 3, not in distress, speaks in sentences with no effort or accessory muscle use Eyes- anicteric Neck- no JVD Lungs- clear breath sounds bilaterally, no rales/wheezes Heart- normal rate, regular rhythm; no murmurs Abdomen- normal bowel sounds, nondistended, soft, nontender Extremities- trace pretibial edema, no calf tenderness Neuro- alert, oriented x 3; no gross focal neurologic deficits Skin- warm & dry Results & Data Results & Data Vital Signs (Past 12 Hours) Vital Signs Temp Pulse Pulse Pulse Pulse Resp Resp 06/27/23 15:23 06/27/23 15:00 83 06/27/23 14:46 36.7 C 78 17 06/27/23 13:18 90 18 06/27/23 10:49 36.3 C L 76 17 06/27/23 08:32 91 H 84 21 06/27/23 08:00 06/27/23 07:42 36.7 C 06/27/23 07:00 83 06/27/23 07:00 90 18 Resp BP Pulse Ox Pulse Ox Pulse Ox O2 Del Method 06/27/23 15:23 96 06/27/23 15:00 06/27/23 14:46 129/89 96 Room Air 06/27/23 13:18 96 Room Air 06/27/23 10:49 106/70 93 Room Air 06/27/23 08:32 15 92 94 06/27/23 08:00 Room Air 06/27/23 07:42 06/27/23 07:00 06/27/23 07:00 95 Room Air all noted and reviewed including below
--- NOTE | 2023-07-02 12:33 | Discharge Summary ---
Discharge Summary Date of Service July 02, 2023 delayed entry date of service noted above Notes For Next Care Provider Medication Changes From Visit Lasix 80 mg twice a day Potassium chloride 40 mill equivalents twice daily Admission HPI Per Admitting Provider 77-year-old male with past medical history significant for chronic systolic CHF with EF of 30% on echo November 2022, moderate size apical thrombus, atypical atrial flutter, paroxysmal atrial fibrillation, dilated nonischemic cardiomyopathy, s/p biventricular pacemaker defibrillator implantation, history of ventricular tachycardia on amiodarone, history of GI bleed, CKD stage IV, history of MUGS and iron deficiency anemia, hypertension, hyperlipidemia, gout, history of prostate cancer s/p radiation treatment, prediabetes, who lives alone at home and ambulates with a cane comes because of syncopal episode. Patient states he was coming out of the bathroom when he felt dizzy and the felt like passing out he lowered himself down ,did not hit his head he was not sure whether he passed out or not. He could not get up and called EMS. Currently resting comfortably and hemodynamically stable. Denies any headache. No runny nose or sore throat. No cough. No fevers. Denies chest pain. Has mild shortness of breath. No sweating. No nausea. No abdominal pain. Normal bowel and bladder movements. Past medical history. As mentioned above Past surgical history. Colonoscopy., Left and right heart catheterization. [place] tooth extraction. Vaginal biopsy of prostate. Tonsillectomy adenoidectomy. S/p biventricular pacemaker defibrillator Social history. No smoking. Alcohol occasional. No drug use. Family history. Mother had brain cancer. Father had ID. Paternal grandfather had ID. Uncle had ID.. Admission Exam Per Admitting Provider General-Not in distress. Head- atraumatic Eyes- PERRL. ENT- oropharynx clear Neck- supple, no JVD. Lungs- clear to auscultation mild occasional wheezing no crackles. Heart- regular rhythm; no murmur, no gallop. Abdomen- normal bowel sounds, soft, nontender, no distension. Extremities- pretibial edema present, no erythema seen. Neuro- alert, oriented x 3; PERRL, no facial palsy; no dysarthria; moves extremities. Skin- warm & dry Principal Dx & Hospital Course #1 = Principal Diagnosis (1) Syncope: per previous hospitalist notes with addendum: 77-year-old male with past medical history significant for chronic systolic CHF with EF of 30% on echo November 2022, moderate size apical thrombus, atypical atrial flutter, paroxysmal atrial fibrillation, dilated nonischemic cardiomyopathy, s/p biventricular pacemaker defibrillator implantation, history of ventricular tachycardia on amiodarone, history of GI bleed, CKD stage IV, history of MUGS and iron deficiency anemia, hypertension, hyperlipidemia, gout, history of prostate cancer s/p radiation treatment, prediabetes, who lives alone at home and ambulates with a cane comes because of syncopal episode. Syncope Likely secondary to cardiogenic cause Acute exacerbation of chronic systolic CHF Complicated by atrial flutter and paroxysmal defibrillation S/p biventricular pacemaker defibrillator implantation Will do pacemaker interrogation-awaited Monitor on telemetry-remains in paced rhythm Repeat echocardiogram showed-LV is moderately dilated, mild concentric LVH, apical wall motion abnormality may reflect pacemaker activation, there is severe global hypokinesis of the left ventricle with EF 15 to 20%, left atrium is severely dilated, mitral valve annulus is dilated, there is severe mitral regurgitation, there is moderate to severe tricuspid regurgitation, RV systolic function is elevated to 40 to 50 mmHg. In comparison to prior study of 12/05/2022 LV systolic function has declined and mitral insufficiency is worse EF of 30% echo in November 2022 given IV Lasix, titrated 06/27 Clinically improved per Cardiology service: Lasix 80 mg twice a day Potassium chloride 40 mill equivalents twice daily Continue oral diuretic therapy. Outpatient device interrogation with consideration for cardioversion after 4 weeks of adequate anticoagulation. Consideration for mitral valve clip in future pending reassessment of LV function and mitral regurgitation in the outpatient setting. No further inpatient testing or intervention recommended at this time. Patient may be discharged from a cardiovascular perspective. Acute decompensated systolic heart failure as above per above Elevation of troponin-troponin is chronically elevated due to underlying cardiac disease and renal insufficiency Initial troponin 57 and repeat is 63 Doubt any ACS History of apical thrombus on coumadin Mild hyperkalemia K 3.8 on K supplement History of paroxysmal atrial fibrillation and a flutter On amiodarone and metoprolol succinate and Coumadin Will monitor History of ventricular tachycardia On amiodarone CKD stage IV Presented creatinine of 2.15 Seems around baseline-creatinine slightly elevated at 2.28 Creatinine 2.2 Hypertension On metoprolol Will monitor Gout On allopurinol Hypothyroidism On Synthyroid TSH normal History of prostate cancer S/p radiation PSA again getting elevated Plan to restart on Lupron on Casodex Follows with urology DVT prophylaxis on coumadin Disposition Lives alone at home PT and OT evaluation CODE STATUS. DNR/DNI as per my discussion with the patient Discharge Exam General- oriented x 3, not in distress, speaks in sentences with no effort or accessory muscle use Eyes- anicteric Neck- no JVD Lungs- clear breath sounds bilaterally, no rales/wheezes Heart- normal rate, regular rhythm; no murmurs Abdomen- normal bowel sounds, nondistended, soft, nontender Extremities- no pretibial edema, no calf tenderness Neuro- alert, oriented x 3; no gross focal neurologic deficits Skin- warm & dry Updated Medication List Medication Instructions Recorded Confirmed Type aspirin 81 mg tablet,delayed 81 mg PO DAILY 06/05/20 06/22/23 History release amiodarone 200 mg tablet 200 mg PO BID 60 days #120 tabs 06/07/20 06/22/23 Rx metoprolol succinate 50 mg 50 mg PO BID 60 days #120 tabs 06/07/20 06/22/23 Rx tablet,extended release 24 hr [id number] acid 0.4 1 tab PO DAILY 12/24/21 06/22/23 History mg-lycopene 300 mcg-lutein 250 mcg tablet (Centrum Silver) furosemide 40 mg tablet 80 mg PO BID 12/11/22 06/22/23 History levothyroxine 50 mcg tablet 50 mcg PO QAM 12/11/22 06/22/23 History allopurinol 300 mg tablet 300 mg PO QAM 06/22/23 06/22/23 History tamsulosin 0.4 mg capsule 0.4 mg PO QAM 06/22/23 06/22/23 History warfarin 6 mg tablet 0 mg PO DIRECTED 06/22/23 06/22/23 History levalbuterol tartrate 45 2 inh inhalation Q4H PRN shortness 06/27/23 Rx mcg/actuation aerosol inhaler of breath #15 grams potassium chloride 20 mEq 40 meq (2 x 20 mEq) PO BID #30 tabs 06/27/23 Rx tablet,extended release(part/cryst) potassium chloride 20 mEq 40 meq (2 x 20 mEq) PO BID #30 tabs 06/27/23 06/22/23 Rx tablet,extended release(part/cryst) Hospital Stay Data Consultations 06/22/23 21:53 ED Decision to Admit Stat 06/23/23 08:00 Consult Cardiology Routine Procedures Performed Laboratory Results WBC 7.20 K/ul (4.8-10.8) 06/24/23 06:20 RBC 3.76 M/uL (4.70-6.10) L 06/24/23 06:20 Hgb 11.4 g/dl (14.0-18.0) L 06/24/23 06:20 Hct 36.0 % (42.0-52.0) L 06/24/23 06:20 MCV 95.7 fL (80.0-100.0) 06/24/23 06:20 MCH 30.3 pg (25.0-34.0) 06/24/23 06:20 MCHC 31.7 g/dL (32.0-36.0) L 06/24/23 06:20 RDW Std Deviation 56.0 fL (36.4-46.3) H 06/24/23 06:20 RDW Coeff of Santosh 15.9 % (11.5-14.5) H 06/24/23 06:20 Plt Count 141 K/uL (130-400) 06/24/23 06:20 MPV 12.1 fL (9.4-12.4) 06/24/23 06:20 Immature Gran % (Auto) 0.3 % 06/24/23 06:20 Neut % (Auto) 77.7 % 06/24/23 06:20 Lymph % (Auto) 14.6 % 06/24/23 06:20 [place] % (Auto) 7.2 % 06/24/23 06:20 Eos % (Auto) 0.1 % 06/24/23 06:20 Baso % (Auto) 0.1 % 06/24/23 06:20 Neut # (Auto) 5.59 K/uL (1.40-6.50) 06/24/23 06:20 Lymph # (Auto) 1.05 K/uL (1.20-3.40) L 06/24/23 06:20 [place] # (Auto) 0.52 K/uL (0.11-0.59) 06/24/23 06:20 Eos # (Auto) 0.01 K/uL (0.00-0.50) 06/24/23 06:20 Baso # (Auto) 0.01 K/uL (0.00-0.20) 06/24/23 06:20 Immature Gran # (Auto) 0.02 K/uL (0.01-0.20) 06/24/23 06:20 PT 25.5 Seconds (9.0-12.0) H 06/27/23 05:42 INR 2.5 (0.9-1.1) H 06/27/23 05:42 Heparin Anti-Xa, Unfract 0.46 IU/ml (0.3-0.7) 06/25/23 08:29 Sodium 141 mmol/L (136-145) 06/26/23 06:29 Potassium 3.8 mmol/L (3.5-5.1) 06/26/23 06:29 Chloride 107 mmol/L (98-107) 06/26/23 06:29 Carbon Dioxide 26 mmol/L (21-32) 06/26/23 06:29 Anion Gap 8 (3-11) 06/26/23 06:29 BUN 49 mg/dl (6-23) H 06/26/23 06:29 Creatinine 2.24 mg/dl (0.6-1.4) H 06/26/23 06:29 Est Cr Clr Drug Dosing 33.8 ml/min 06/26/23 06:29 Est GFR ( Amer) 31.4 ml/min 06/26/23 06:29 Est GFR (Non-Af Amer) 27.1 ml/min 06/26/23 06:29 BUN/Creatinine Ratio 21.9 (10-20) H 06/26/23 06:29 Glucose 130 mg/dl (70-99(Fasting)) H 06/26/23 06:29 Estimat Average Glucose 137 mg/dl 06/23/23 05:09 Hemoglobin A1c 6.4 % (4.5-5.6) H 06/23/23 05:09 Calcium 8.2 mg/dl (8.6-10.3) L 06/26/23 06:29 Phosphorus 3.5 mg/dl (2.5-4.9) 06/25/23 08:29 Magnesium 2.2 mg/dl (1.7-2.4) 06/26/23 06:29 Total Bilirubin 0.6 mg/dl (0.2-1.0) 06/22/23 18:50 AST 79 U/L (13-39) H 06/22/23 18:50 ALT 92 U/L (7-52) H 06/22/23 18:50 Alkaline Phosphatase 81 U/L (34-104) 06/22/23 18:50 Troponin I High Sens 61.6 pg/ml (0-20) H* 06/23/23 16:18 B-Natriuretic Peptide 1195 pg/ml (0-100) H 06/22/23 21:00 Total Protein 6.8 gm/dl (6.0-8.3) 06/22/23 18:50 Albumin 3.7 gm/dl (3.4-5.0) 06/22/23 18:50 Globulin 3.1 gm/dl (2.5-4.0) 06/22/23 18:50 Albumin/Globulin Ratio 1.2 (0.9-2) 06/22/23 18:50 TSH 2.802 uIu/ml (0.300-4.500) 06/23/23 05:09 Urine Color Yellow 06/22/23 21:05 Urine Appearance Clear (Clear) 06/22/23 21:05 Urine pH 5.0 (4.5-7.5) 06/22/23 21:05 Ur Specific [place] 1.018 (1.000-1.030) 06/22/23 21:05 Urine Protein 1+ (Negative) H 06/22/23 21:05 Urine Glucose (UA) Negative (Negative) 06/22/23 21:05 Urine Ketones Negative (Negative) 06/22/23 21:05 Urine Blood Negative (Negative) 06/22/23 21:05 Urine Nitrite Negative (Negative) 06/22/23 21:05 Urine Bilirubin Negative (Negative) 06/22/23 21:05 Urine Urobilinogen Negative (Negative) 06/22/23 21:05 Ur Leukocyte Esterase Negative (Negative) 06/22/23 21:05 Urine WBC (Auto) 1-5 /hpf (0-5) 06/22/23 21:05 Urine RBC (Auto) 0-4 /hpf (0-4) 06/22/23 21:05 U Hyaline Cast (Auto) 5-10 /lpf (0-5) H 06/22/23 21:05 U Epithel Cells (Auto) 5-10 /lpf (0-5) H 06/22/23 21:05 Urine Bacteria (Auto) Negative (Negative) 06/22/23 21:05 Impressions Chest X-Ray 06/26/23 09:49 XR chest 1V portable HISTORY: 77 years-old Male ff up chf acute shortness of breath COMPARISON: 06/24/2023 TECHNIQUE: AP view of the chest FINDINGS: Cardiac silhouette is enlarged. Pulmonary vascular congestion. Left subclavian pacer/ICD. Small pleural effusions with mild persistent bibasilar opacities, mildly progressed. Bones appear grossly intact. IMPRESSION: 1. Cardiomegaly with pulmonary vascular congestion. 2. Small pleural effusions with mildly progressed bibasilar opacities. ACT 112: Negative or not required by law. The above report was generated using voice recognition software. It may contain grammatical, syntax or spelling errors. Electronically signed by: Filiberto Metcalf M.D. 06/26/2023 10:33 AM Pending Results Patient Have Any Pending Studies at Discharge: No Discharge Instructions Given to Patient (Per Discharging Provider) PLEASE REFER TO YOUR NEW MEDICATION LIST AND FOLLOW INSTRUCTIONS CAREFULLY. YOUR NEW MEDICATIONS INCLUDE: Lasix 80 mg twice a day Potassium chloride 40 mill equivalents twice daily PLEASE CALL YOUR PRIMARY CARE PHYSICIAN OR RETURN TO THE ER IF WITH WORSENING OF SYMPTOMS, INCLUDING Shortness of breath, chest pain, palpitations, dizziness, worsening leg edema, etc. FOLLOW UP WITH PRIMARY CARE PHYSICIAN IN 1 WEEK. FOLLOW-UP WITH [facility] IN 1 WEEK Total Time Total Time Spent Total Time Spent (In Minutes): >30 minutes
== END 2023-06-27 16:53 | disposition home health service (06) ==
LOC: ED 18:15 → SUATTDRO 06-23 00:01 → INTOOBSV 06-23 00:01 → 2S 06-23 00:01